=== PATIENT | male | born 1945 | race Caucasian/White ===

== ENCOUNTER 2020-04-27 07:38 | Outpatient (REF) | payer MEDICARE, SELFPAY ==
[2020-04-27 08:08] LABS: MANUAL DIFF FLAG NO
[2020-04-27 08:20] LABS: Basophils Percent Auto 0.5 % (0-2); Eosinophils Absolute Auto 0.5 X10*3/uL (0.0-0.4); Eosinophils Percent Auto 5.5 % (0-4); Hematocrit 46.1 % (42-52); Imm Gran Abs Auto 0.02 X10*3/uL (0.00-0.03); Imm Gran Pct Auto 0.2 % (0.0-0.4); Lymphocytes Absolute Auto 2.4 X10*3/uL (1.2-4.9); Lymphocytes Percent Auto 29.1 % (20-40); Mean Corpuscular HGB Conc 32.5 g/dl (31.0-36.0); Mean Corpuscular Hemoglobin 31.2 pg (27.0-33.0); Mean Corpuscular Volume 95.8 fL (80-98); Mean Platelet Volume 9.8 fL (9.4-12.4); Monocytes Absolute Auto 0.7 X10*3/uL (0.1-1.2); Monocytes Percent Auto 7.9 % (2-11); Neutrophils Absolute Auto 4.7 X10*3/uL (2.0-8.3); Neutrophils Percent Auto 56.8 % (45-73); Platelet Count 204 X10*3/uL (160-400); Red Blood Count 4.81 X10*6/uL (4.60-5.80); Red Cell Distribution Width 13.6 % (11.0-16.0); White Blood Count 8.3 X10*3/uL (4.8-10.8)
[2020-04-27 08:47] LABS: Glucose Urine UA NEG (NEG); Leukocyte Esterase Urine NEG (NEG); Nitrite Urine NEG (NEG); Specific Gravity - Urine 1.025 (1.005-1.025); Urine Blood TRACE (NEG); Urine Ketones NEG (NEG); Urine Protein NEG (NEG-TRACE)
[2020-04-27 08:50] LABS: Color Urine YELLOW
[2020-04-27 08:51] LABS: Appearance Urine CLEAR
[2020-04-27 08:52] LABS: Alanine Aminotransferase 25 U/L (0-40); Albumin Level 3.8 g/dL (3.5-5.0); Alkaline Phosphatase 92 U/L (39-117); Anion Gap 11 (12-20); Aspartate Amino Transferase 18 U/L (5-37); Bilirubin Total 0.5 mg/dL (0.0-1.0); Blood Urea Nitrogen 17 mg/dL (9-16); Calcium 8.9 mg/dL (8.4-10.2); Carbon Dioxide 27 mmol/L (22-29); Chloride 107 mmol/L (96-108); Cholesterol 152 mg/dL; Estimated Glomerular Filt Rate > 60; Glucose Fasting 92 mg/dL (60-99); HDL Cholesterol 40 mg/dL; LDL Cholesterol Calculated 101 mg/dl; Potassium 3.6 mmol/l (3.3-5.1); Sodium 141 mmol/L (135-145); Total Protein 6.3 g/dL (6.5-8.0); Triglycerides 58 mg/dL
[2020-04-27 08:59] LABS: WBC Urine 0 /HPF (0-4)
[2020-04-27 09:00] LABS: Mucus Urine 1+ /LPF
[2020-04-27 09:14] LABS: Prostate Specific Antigen 1.42 ng/mL (<0.05-4.0); TSH reflex Free T4 1.41 mIU/mL (0.32-4.0)
== END 2020-04-27 07:39 | disposition home or self-care (01) ==
LOC: HO.LAB 07:38
PROVIDERS: PCP Internal Medicine; Visit Provider Internal Medicine
DX: E78.5 Hyperlipidemia, unspecified (principal); R73.01 Impaired fasting glucose; R35.0 Frequency of micturition; M51.36 Other intervertebral disc degeneration, lumbar region; C43.31 Malignant melanoma of nose
CPT/HCPCS: 36415; 80053; 80061; 81001; 84153; 84443; 85025

== ENCOUNTER 2020-08-17 07:44 | Day surgery (SDC) | payer OTHER, SELFPAY ==
[2020-08-11 13:16] VITALS: BMI 29.9
--- NOTE | 2020-08-16 08:15 | P.CONAN_ITS ---
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 (Acute) Lumbar strain (Acute) Lumbar degenerative disc disease (Acute) Impaired fasting glucose (Acute) Benign essential hypertension (Acute) Pure hypercholesterolemia (Acute) Past Medical History Medical History Anxiety Benign essential hypertension Claudication of both lower extremities COVID-19 vaccine administered History of diverticulosis Impaired fasting glucose Lumbar degenerative disc disease Lumbar strain Malignant melanoma of nose Overweight (BMI 25.0-29.9) Pure hypercholesterolemia Skin cancer, 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 If so, by whom?: No Are you DNR?: No Advance Directives: Yes (unknown) Advance Directives Information Provided: No Advance Directives on File: No (unknown) Advance Directives Date on File: 08/17/20 Recently lost weight without trying: No Eating poorly because of decreased appetite: No Nutrition Risks: No Nutritional Risk Meds Allergies Allergy/AdvReac Type Severity Reaction Status Date / Time No Known Allergies Allergy Verified 06/07/20 13:47 Home Medications Medication Instructions Recorded Confirmed Last Taken Type aspirin 81 mg tablet,delayed 81 mg PO DAILY 02/06/20 08/11/20 08/10/20 History release atorvastatin 80 mg tablet 80 mg PO .1/2 TABLET DAILY tab 02/06/20 08/11/20 Unknown History bupropion HCl (smoking deter) 150 150 mg PO DAILY 02/06/20 08/11/20 Unknown History mg tablet,12 hr sustained-release(smoking deterrent) lisinopril 5 mg tablet 5 mg PO DAILY 02/06/20 08/11/20 Unknown History Exam Exam Date and Time: August 16, 2020 0815 Height,Weight and Vital Signs: Height 5 ft 9 in Weight 92.079 kg Assessment and Plan Assessment Anesthesia Assessment: Chart Reviewed
[2020-08-17 07:55] VITALS: BP 141/79; PULSE 82; RESP 18; TEMP 35.8; O2SAT 100
[2020-08-17] MEDS: Lactated Ringers 1,000 ML 100 ML IVCONT (08:19)
--- NOTE | 2020-08-17 08:53 | MHC.SHP ---
Pre-Procedural Eval Section A The patient is an INPATIENT: No Section B Chief Complaint: screening Details of Present Illness: screening Relevant Family History (Specify if Yes): No Relevant Social History: None Present Medications: see Short Stay Collaborative assessment Medical History: No relevant PMH History of Previous Operations: No relevant previous surgery Allergies: Allergies Allergy/AdvReac Type Severity Reaction Status Date / Time No Known Allergies Allergy Verified 06/07/20 13:47 Review of Systems Sugical H&P ROS: Negative: Constitution, Cardiovascular, Respiratory, Neurological, Psychiatric, Hem-Onc, Allergic/Immunologic, Gastrointestinal, Genitourinary, Musculoskeletal, Integumentary, Endocrine and Eyes/Ears/Nose/Throat Exam Surgical H&P Exam: Normal: HEENT, Normal: Heart, Normal: Lungs, Normal: Extremities, Normal: Abdomen, Normal: Skin and Normal: Neurological Plan Diagnosis/Plan: Unchanged I have reviewed the history and physical and performed a pertinent physical examination on my patient. No changes have occurred unless specified.
--- NOTE | 2020-08-17 08:59 | P.CONAN_ITS ---
[facility] [place] Active Problems Active Problems: All Active Problems (Updated 08/11/20 @ 13:17 by Mariam everett) Overweight (BMI 25.0-29.9) (Acute) Anxiety (Acute) Malignant melanoma of nose (Acute) Claudication of both lower extremities (Acute) Lumbar strain (Acute) Lumbar degenerative disc disease (Acute) Impaired fasting glucose (Acute) Benign essential hypertension (Acute) Pure hypercholesterolemia (Acute) Past Medical History Medical History Anxiety Benign essential hypertension Claudication of both lower extremities COVID-19 vaccine administered History of diverticulosis Impaired fasting glucose Lumbar degenerative disc disease Lumbar strain Malignant melanoma of nose Overweight (BMI 25.0-29.9) Pure hypercholesterolemia Skin cancer, 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 If so, by whom?: No Are you DNR?: No Advance Directives: Yes (unknown) Advance Directives Information Provided: No Advance Directives on File: No (unknown) Advance Directives Date on File: 08/17/20 Recently lost weight without trying: No Eating poorly because of decreased appetite: No Nutrition Risks: No Nutritional Risk Meds Allergies Allergy/AdvReac Type Severity Reaction Status Date / Time No Known Allergies Allergy Verified 06/07/20 13:47 Active Medications: Current Medications Generic Name Dose Route Start Last Admin Trade Name Freq PRN Reason Stop Dose Admin Albuterol Sulfate 2.5 mg 08/17/20 06:57 Albuterol Sulfate (0.083%) 2.5 Mg/3 Ml Vial.Neb INHALE ONCE PRN Shortness of Breath/Wheezing Lactated Ringer's 1,000 mls @ 100 mls/hr 08/17/20 07:00 08/17/20 08:19 Lr IVCONT 100 mls/hr .Q10H AMY Administration Sodium Biphosphate/Sodium Phosphate 133 ml 08/17/20 08:32 Sodium Phosphate,[place]-Dibasic 133 Ml Enema NE ONCE PRN GI Upset Sodium Biphosphate/Sodium Phosphate 133 ml 08/17/20 08:48 Sodium Phosphate,[place]-Dibasic 133 Ml Enema NE ONCE PRN GI Upset Home Medications Medication Instructions Recorded Confirmed Last Taken Type aspirin 81 mg tablet,delayed 81 mg PO DAILY 02/06/20 08/11/20 08/10/20 History release atorvastatin 80 mg tablet 80 mg PO .1/2 TABLET DAILY tab 02/06/20 08/11/20 Unknown History bupropion HCl (smoking deter) 150 150 mg PO DAILY 02/06/20 08/11/20 Unknown History mg tablet,12 hr sustained-release(smoking deterrent) lisinopril 5 mg tablet 5 mg PO DAILY 02/06/20 08/11/20 Unknown History Exam Exam Date and Time: August 17, 2020 0859 Height,Weight and Vital Signs: Height 5 ft 9 in Weight 92.079 kg Last Vital Signs Temp 96.4 F L 08/17/20 07:55 Pulse 82 08/17/20 07:55 Resp 18 08/17/20 07:55 BP 141/79 H 08/17/20 07:55 Pulse Ox 100 08/17/20 07:55 Airway Mallampati Class: III TM Dist: >3cm Neck ROM: Full Denture: Upper Heart: RRR Lungs: CtA
[2020-08-17] MEDS: Sodium Phosphate,Mono-Dibasic 133 ML ENEMA PR ×2 (09:01)
[2020-08-17 09:35] VITALS: BP 116/75; PULSE 77; RESP 16; TEMP 36.6; O2SAT 96
--- NOTE | 2020-08-17 09:43 | PM.OP ---
Brief Operative Note Date of Service: 08/17/20 Pre-op diagnosis: screening Post-op diagnosis: same (colon polyp) Procedure: colonoscopy Surgeon: Rian Metzger Was an [employer] Grade [employer] used for this Procedure?: No Estimated blood loss (mL): 2 Pathology: other (polyp x1) Condition: stable Disposition: PACU
[2020-08-17 09:50] VITALS: BP 128/83; PULSE 76; RESP 17; TEMP 36.6; O2SAT 98
--- NOTE | 2020-08-17 10:00 | OP_ITS ---
SURGEON: Rian Metzger MD INDICATIONS: Colon cancer screening. PREOPERATIVE DIAGNOSIS: POSTOPERATIVE DIAGNOSIS: PROCEDURE PERFORMED: Colonoscopy to cecum with biopsy. ESTIMATED BLOOD LOSS: COMPLICATIONS: ANESTHESIA: ASSISTANTS: SPECIMENS: MEDICATIONS: Monitored anesthesia care. DESCRIPTION OF PROCEDURE: History and physical performed. The risks and benefits of the procedure were explained to the patient. Informed consent was obtained. The patient was placed in left lateral decubitus position. A digital rectal exam was performed and was found to be normal. The Olympus pediatric video colonoscope was introduced into the rectum and advanced to the cecum without difficulty. The cecum was identified by transillumination, palpation, and identification of ileocecal valve. Abdominal wall pressure was used to assist in advancement of the scope due to looping in the sigmoid. He tolerated the procedure well and was taken to recovery area in stable condition. FINDINGS: The terminal ileum was not examined. The visualized colonic mucosa was normal. Examination was extremely limited due to the poor prep with portions of the transverse colon and descending colon being extremely limited in visualization. Small polyps could have been missed. There was a single polyp in the right colon that was removed with biopsy forceps measuring less than 5 mm. No other polyps were identified. There was moderate sigmoid diverticulosis. Retroflexed examination showed small internal hemorrhoids. IMPRESSION: Colon polyp. RECOMMENDATIONS: 1. Follow up the biopsy results. 2. Consider repeat colonoscopy with 2-day prep in 6 to 12 months. MD JOSÉ MIGUEL Oliva/TIMOTHY / [id number]
--- NOTE | 2020-08-17 11:38 | HO.POSTANES ---
Post Anesthesia Evaluation Post Anesthesia Evaluation Vital Signs: Vital Signs Temp Pulse Resp BP Pulse Ox 08/17/20 09:50 97.9 F 76 17 128/83 98 08/17/20 09:35 97.9 F 77 16 116/75 96 08/17/20 07:55 96.4 F L 82 18 141/79 H 100 Anesthesia: Monitored Mental Status: Awake Pain Control: Satisfactory Nausea/Vomiting: None Hydration: Adequate Anesthesia-Related Issues: No Anes. Related Issues
== END 2020-08-17 10:19 | disposition home or self-care (01) ==
PROVIDERS: PCP Internal Medicine; Visit Provider Internal Medicine Gastroenterology
PROC: 0DJD8ZZ Inspection of Lower Intestinal Tract, Via Natural or Artificial Opening Endoscopic (ICD-10-PCS; CPT 45378; principal; 2020-08-17 08:50)
DX: Z12.11 Encounter for screening for malignant neoplasm of colon (principal); D12.4 Benign neoplasm of descending colon; K57.30 Diverticulosis of large intestine without perforation or abscess without bleeding; K64.8 Other hemorrhoids; I10 Essential (primary) hypertension; Z85.820 Personal history of malignant melanoma of skin; Z85.828 Personal history of other malignant neoplasm of skin; F17.210 Nicotine dependence, cigarettes, uncomplicated; Z79.82 Long term (current) use of aspirin; Z79.899 Other long term (current) drug therapy
CPT/HCPCS: 45380; 88305

== ENCOUNTER 2020-08-20 22:10 | Inpatient (IN) | payer MEDICARE, SELFPAY ==
--- NOTE | ~2020-08-20 | CT_ITS ---
EXAMINATION: CT ABDOMEN AND PELVIS WITH CONTRAST CLINICAL INFORMATION: Abdominal pain COMPARISON: None TECHNIQUE: Multidetector volumetric images were obtained from the superior aspect of the liver through the pubic symphysis following administration 85 mL of Omnipaque 350 intravenous contrast. Sagittal and coronal reformatted images were obtained on the technologist's workstation. Oral contrast: No This CT examination was performed using dose optimization techniques as appropriate, variously including the following: *Automated exposure control *Adjustment of mA and/or kV according to patient size (this includes techniques or standardized protocols for targeted exams where dose is matched to indication/reason for exam; i.e. extremities or head) *Use of iterative reconstruction technique DLP: 622 mGy-cm FINDINGS: LUNG BASES: The visualized lung bases are unremarkable. LIVER, GALLBLADDER, AND BILIARY TREE: The liver is normal in size, shape, and attenuation. No focal hepatic lesion or biliary ductal dilatation is present. The gallbladder is unremarkable with no evidence of radiopaque gallstones, gallbladder wall thickening, or obvious pericholecystic inflammatory changes. PANCREAS: Unremarkable. SPLEEN: Unremarkable. ADRENAL GLANDS: Unremarkable. KIDNEYS AND URETERS: The kidneys are normal in size, shape, and attenuation. There are several small scattered hypodense renal lesions bilaterally which are favored to represent cysts. There is a 2 mm calculus in the upper right kidney. No hydronephrosis, hydroureter, or obstructing calculi seen. No perinephric stranding. BLADDER: Unremarkable. GASTROINTESTINAL TRACT: There are multiple fluid-filled small bowel loops throughout the abdomen. No discrete transition from dilated to collapsed small bowel is seen, and fluid remains present within nondilated distal small bowel loops. There is a short segment of focally thickened small bowel in the left abdomen as seen on axial image 61/95 and coronal image 41, with a small amount of adjacent fluid. In the coronal plane this thickened portion has abrupt margins, which raises concern for neoplasm. Moderate amount of stool is present throughout the colon. Colonic diverticulosis without convincing diverticulitis. There is a small amount of pelvic free fluid. The appendix is unremarkable. ABDOMINAL WALL: Small bilateral fat-containing inguinal hernias. LYMPH NODES: Normal. VASCULAR: There are scattered atherosclerotic calcifications. PELVIC VISCERA: Unremarkable. OSSEOUS STRUCTURES: Degenerative changes are noted in the spine. CT/CT abdomen pelvis w con IMPRESSION: 1. Focally thickened small bowel in the left lower quadrant with small amount of adjacent free fluid. Appearance is concerning for small bowel neoplasm, and further workup is recommended. 2. Multiple fluid-filled mid to distal small bowel loops. No focal transition from distended to collapsed small bowel is seen, though the possibility of a low-grade obstruction would be difficult to entirely exclude. This does not appear to be centered in the focally thickened small bowel described above.
[2020-08-20 22:55] VITALS: BP 134/78; PULSE 98; RESP 16; TEMP 36.7; O2SAT 98; BMI 28.7
[2020-08-20 23:13] LABS: MANUAL DIFF FLAG NO
[2020-08-20 23:15] LABS: Basophils Percent Auto 0.3 % (0-2); Eosinophils Absolute Auto 0.6 X10*3/uL (0.0-0.4); Eosinophils Percent Auto 4.9 % (0-4); Hematocrit 47.6 % (42-52); Hemoglobin 16.1 g/dl (14.0-18.0); Imm Gran Abs Auto 0.03 X10*3/uL (0.00-0.03); Imm Gran Pct Auto 0.2 % (0.0-0.4); Lymphocytes Absolute Auto 1.8 X10*3/uL (1.2-4.9); Lymphocytes Percent Auto 14.6 % (20-40); Mean Corpuscular HGB Conc 33.8 g/dl (31.0-36.0); Mean Corpuscular Hemoglobin 31.9 pg (27.0-33.0); Mean Corpuscular Volume 94.3 fL (80-98); Mean Platelet Volume 9.8 fL (9.4-12.4); Monocytes Absolute Auto 0.8 X10*3/uL (0.1-1.2); Monocytes Percent Auto 6.3 % (2-11); Neutrophils Absolute Auto 9.2 X10*3/uL (2.0-8.3); Neutrophils Percent Auto 73.7 % (45-73); Platelet Count 227 X10*3/uL (160-400); Red Blood Count 5.05 X10*6/uL (4.60-5.80); Red Cell Distribution Width 13.4 % (11.0-16.0); White Blood Count 12.5 X10*3/uL (4.8-10.8)
[2020-08-20 23:40] LABS: Alanine Aminotransferase 29 U/L (0-40); Albumin Level 4.2 g/dL (3.5-5.0); Alkaline Phosphatase 109 U/L (39-117); Anion Gap 13 (12-20); Aspartate Amino Transferase 23 U/L (5-37); Bilirubin Total 0.7 mg/dL (0.0-1.0); Blood Urea Nitrogen 19 mg/dL (9-16); Carbon Dioxide 28 mmol/L (22-29); Chloride 106 mmol/L (96-108); Creatinine Clr Calc Pharmacy 66.1; Estimated Glomerular Filt Rate > 60; Glucose Random 109 mg/dL (60-115); Potassium 4.1 mmol/L (3.3-5.1); Sodium 143 mmol/L (135-145)
[2020-08-21] VITALS (9 sets, daily range): BP systolic 102–135; BP diastolic 55–82; PULSE 78–86; RESP 14–20; TEMP 36.3–36.9; O2SAT 95–99
--- NOTE | 2020-08-21 02:45 | ED.ABDPAIN ---
HPI - Abdominal Pain General Chief Complaint: Abdominal Pain Stated Complaint: punctured bowel? Time Seen by Provider: 08/21/20 02:45 Source: patient Mode of arrival: ambulatory History of Present Illness HPI narrative: Abdominal pain since colonoscopy on Sunday and initially was able to pass gas but now denies being able to pass flatus and has not had a bowel movement since. Denies any abdominal surgeries and states that the pain is worse with eating and he does note that he had gallbladder stones on his lung scan a month ago. Otherwise, he denies any fevers, chills but does state nausea with the pain and denies any diarrhea or urinary symptoms. Related Data Home Medications Medication Instructions Recorded Confirmed aspirin 81 mg tablet,delayed 81 mg PO DAILY 02/06/20 08/11/20 release atorvastatin 80 mg tablet 80 mg PO .1/2 TABLET DAILY tab 02/06/20 08/11/20 bupropion HCl (smoking deter) 150 150 mg PO DAILY 02/06/20 08/11/20 mg tablet,12 hr sustained-release(smoking deterrent) lisinopril 5 mg tablet 5 mg PO DAILY 02/06/20 08/11/20 Allergies Allergy/AdvReac Type Severity Reaction Status Date / Time No Known Allergies Allergy Verified 08/20/20 22:55 Review of Systems Review of Systems Pertinent positives and negatives as stated in the HPI and 10 point review of systems is otherwise negative. Physical Exam Vital Signs: Vital Signs: Last Vital Signs Temp 98.1 F 08/20/20 22:55 Pulse 98 08/20/20 22:55 Resp 16 08/20/20 22:55 BP 134/78 08/20/20 22:55 Pulse Ox 98 08/20/20 22:55 Body Mass Index 28.7 VITAL SIGNS: Reviewed. GENERAL: Well developed, well nourished, in no acute distress. HEAD: Normocephalic/atraumatic, EYES: PERRLA, EOMI EARS: Ext canals without abnormality NOSE: Nares patent bilateral OROPHARYNX: no oral lesions noted, posterior pharynx clear NECK: Supple, no adenopathy LUNGS: Normal breath sounds. No adventitious sounds or accessory muscle use. SpO2<98> CARDIOVASCULAR: Regular rate and rhythm without noted murmurs ABDOMEN: Obese, Soft, tenderness to palpation over epigastrium primarily without evidence of rebound, non-distended with bowel sounds. NEUROLOGIC: Alert and oriented x 4. Course Course Course Narrative: 75-year-old male with history and clinical presentation concerning for possible perforation, bowel obstruction, diverticulitis. History is significant for colonoscopy. On review of all investigations evidence most consistent with bowel obstruction but also the possibility of a malignancy as identified by the CT scan findings. As there is a noted leukocytosis patient was treated with IV antibiotics and a lactic acid as well as blood cultures were drawn although patient does not meet sepsis criteria at this time. I discussed this case with Dr. Upton who recommends admission and placement of NGT as well as discussing the case with Dr. Barbosa who has accepted the patient under her service and agrees with placement of NG tube. MDM - Abdominal Pain Lab Data Result diagrams: 08/20/20 23:06 08/20/20 23:06 Labs: Lab Results 08/20/20 08/20/20 08/20/20 Range/Units 23:06 23:06 23:06 WBC 12.5 H (4.8-10.8) X10*3/uL RBC 5.05 (4.60-5.80) X10*6/uL Hgb 16.1 (14.0-18.0) g/dl Hct 47.6 (42-52) % MCV 94.3 (80-98) fL MCH 31.9 (27.0-33.0) pg MCHC 33.8 (31.0-36.0) g/dl RDW 13.4 (11.0-16.0) % Plt Count 227 (160-400) X10*3/uL MPV 9.8 (9.4-12.4) fL Immature Gran % (Auto) 0.2 (0.0-0.4) % Neut % (Auto) 73.7 H (45-73) % Lymph % (Auto) 14.6 L (20-40) % [place] % (Auto) 6.3 (2-11) % Eos % (Auto) 4.9 H (0-4) % Baso % (Auto) 0.3 (0-2) % Lymph # (Auto) 1.8 (1.2-4.9) X10*3/uL [place] # (Auto) 0.8 (0.1-1.2) X10*3/uL Eos # (Auto) 0.6 H (0.0-0.4) X10*3/uL Baso # (Auto) 0.0 (0.0-0.2) X10*3/uL Abs Immat Gran (auto) 0.03 (0.00-0.03) X10*3/uL Absolute Neuts (auto) 9.2 H (2.0-8.3) X10*3/uL Absolute Nucleated RBC 0.000 (0.0-0.012) X10*3/uL Nucleated RBC % (auto) 0.0 (0.0-0.2) /100WBC Hold Blue Top SEE NOTE Sodium 143 (135-145) mmol/L Potassium 4.1 (3.3-5.1) mmol/L Chloride 106 (96-108) mmol/L Carbon Dioxide 28 (22-29) mmol/L Anion Gap 13 (12-20) BUN 19 H (9-16) mg/dL Creatinine 1.11 (0.5-1.4) mg/dL Estim Creat Clear Calc 66.1 Estimated GFR > 60 Random Glucose 109 (60-115) mg/dL Calcium 10.0 D (8.4-10.2) mg/dL Total Bilirubin 0.7 (0.0-1.0) mg/dL AST 23 (5-37) U/L ALT 29 (0-40) U/L Alkaline Phosphatase 109 (39-117) U/L Total Protein 7.0 (6.5-8.0) g/dL Albumin 4.2 (3.5-5.0) g/dL Urine Color Urine Appearance Urine pH (5.0-8.0) Ur Specific [place] (1.005-1.025) Urine Protein (NEG-TRACE) MG/DL Urine Glucose (UA) (NEG) MG/DL Urine Ketones (NEG) MG/DL Urine Blood (NEG) Urine Nitrite (NEG) Ur Leukocyte Esterase (NEG) Urine RBC (0) /HPF Urine WBC (0-4) /HPF Ur Squamous Epith Cells /LPF Uric Acid Crystals /LPF Urine Bacteria /LPF Hyaline Casts /LPF Granular Casts /LPF Urine Mucus /LPF 08/21/20 Range/Units 02:31 WBC (4.8-10.8) X10*3/uL RBC (4.60-5.80) X10*6/uL Hgb (14.0-18.0) g/dl Hct (42-52) % MCV (80-98) fL MCH (27.0-33.0) pg MCHC (31.0-36.0) g/dl RDW (11.0-16.0) % Plt Count (160-400) X10*3/uL MPV (9.4-12.4) fL Immature Gran % (Auto) (0.0-0.4) % Neut % (Auto) (45-73) % Lymph % (Auto) (20-40) % [place] % (Auto) (2-11) % Eos % (Auto) (0-4) % Baso % (Auto) (0-2) % Lymph # (Auto) (1.2-4.9) X10*3/uL [place] # (Auto) (0.1-1.2) X10*3/uL Eos # (Auto) (0.0-0.4) X10*3/uL Baso # (Auto) (0.0-0.2) X10*3/uL Abs Immat Gran (auto) (0.00-0.03) X10*3/uL Absolute Neuts (auto) (2.0-8.3) X10*3/uL Absolute Nucleated RBC (0.0-0.012) X10*3/uL Nucleated RBC % (auto) (0.0-0.2) /100WBC Hold Blue Top Sodium (135-145) mmol/L Potassium (3.3-5.1) mmol/L Chloride (96-108) mmol/L Carbon Dioxide (22-29) mmol/L Anion Gap (12-20) BUN (9-16) mg/dL Creatinine (0.5-1.4) mg/dL Estim Creat Clear Calc Estimated GFR Random Glucose (60-115) mg/dL Calcium (8.4-10.2) mg/dL Total Bilirubin (0.0-1.0) mg/dL AST (5-37) U/L ALT (0-40) U/L Alkaline Phosphatase (39-117) U/L Total Protein (6.5-8.0) g/dL Albumin (3.5-5.0) g/dL Urine Color DARK YELLOW Urine Appearance CLEAR Urine pH 6.5 (5.0-8.0) Ur Specific [place] 1.025 (1.005-1.025) Urine Protein 1+ H (NEG-TRACE) MG/DL Urine Glucose (UA) NEG (NEG) MG/DL Urine Ketones 15 (NEG) MG/DL Urine Blood NEG (NEG) Urine Nitrite NEG (NEG) Ur Leukocyte Esterase NEG (NEG) Urine RBC 0-2 (0) /HPF Urine WBC 0-2 (0-4) /HPF Ur Squamous Epith Cells NONE /LPF Uric Acid Crystals 1+ /LPF Urine Bacteria NONE /LPF Hyaline Casts 0-2 /LPF Granular Casts 0-2 /LPF Urine Mucus 2+ /LPF Discharge Plan Discharge Clinical Impression: SBO (small bowel obstruction) Patient Disposition: Admitted As Inpatient [facility]LY [facility] Past Medical History Source: nursing notes reviewed Medical History Anxiety Benign essential hypertension Claudication of both lower extremities COVID-19 vaccine administered History of diverticulosis Impaired fasting glucose Lumbar degenerative disc disease Lumbar strain Malignant melanoma of nose Overweight (BMI 25.0-29.9) Pure hypercholesterolemia Skin cancer, 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 Surgical History H/O colonoscopy History of eye surgery History of melanoma excision Family History Family History Father Cancer Mother Cancer Social History Social History Alcohol intake: never Smoking Status: Current every day smoker Tobacco Type: Cigarette Cigarettes Per Day: 4 Use of substances other than those prescribed or required for medical reasons: No Advance Directives: Yes Advance Directives on File: Yes Advance Directives Date on File: 08/17/20
[2020-08-21 02:56] LABS: Appearance Urine CLEAR; Color Urine DARK YELLOW; Glucose Urine UA NEG (NEG); Leukocyte Esterase Urine NEG (NEG); Nitrite Urine NEG (NEG); PH 6.5 (5.0-8.0); Specific Gravity - Urine 1.025 (1.005-1.025); Urine Blood NEG (NEG); Urine Ketones 15 MG/DL (NEG); Urine Protein 1+ MG/DL (NEG-TRACE)
[2020-08-21] MEDS: iohexoL 350 MG/ML 100 ML INFUS..BTL 85 ML IV (03:25)
[2020-08-21 03:29] LABS: RBC Urine 0-2 /HPF (0); WBC Urine 0-2 /HPF (0-4)
[2020-08-21 03:30] LABS: Granular Casts Urine 0-2 /LPF; Hyaline Casts Urine 0-2 /LPF; Mucus Urine 2+ /LPF; Uric Acid Crystals Urine 1+ /LPF
--- NOTE | 2020-08-21 04:26 | PC.NURSE ---
MD at bedside explaining results and plan for admission.
--- NOTE | 2020-08-21 05:21 | PC.NURSE ---
photovoltaic fabrication technician at bedside having a difficult time obtaining BCX.
[2020-08-21] MEDS: Dextrose 5 % and Lactated Ring 1,000 ML 100 ML IVCONT ×2 (05:34→15:21)
[2020-08-21 05:41] LABS: COVID-19 Test Negative (Negative); IDNOW Serial# 9DD0AD1C
--- NOTE | 2020-08-21 05:49 | PC.NURSE ---
IVF infusing per MAR. Pt denies pain/nausea, refusing NGT at this time. Familia aware. VSS. Pt resting in bed, lights dim for comfort. Call cohen within reach, continue to monitor.
[2020-08-21 05:55] LABS: Lactic Acid 1.2 mmol/L (0.5-2.0)
--- NOTE | 2020-08-21 08:44 | P.HPGS_ITS ---
History of Present Illness History of Present Illness Date of Service: 08/21/20 Chief complaint: Abdominal Pain Narrative: Robert Mcintyre is a 75 year old male who has a 4 day history of abdominal distension and pain exacerbated by eating. The problem began after he had a colonoscopy done on 08/17/2020. He completed the full prep on 08/16/2020, but reports that he did not pass a lot of stool as a result of the prep. Colonoscopy was completed by Dr. Metzger. The prep was poor and repeat colonoscopy in 6-12 months was recommended. The patient reports that when he returned home after the colonoscopy, he passed a lot of loose stool. He has not had a bowel movement since that time. He was passing flatus initially, but could not recall passing flatus yesterday. He reports that he began passing flatus again early this morning after coming into the emergency department. He says that he feels less distended and that he is not having pain at this time. Workup in the emergency room included a CT scan of the abdomen and pelvis that demonstrated mildly dilated small bowel with an area of focal small bowel thickening raising concern for possible small-bowel neoplasm. He does not report vomiting, fever or chills though he has experienced some mild nausea. He has not had similar problems in the past. Review of Systems Constitutional: Constitutional: Reports no additional constitutional complaints and Denies headache(s) ENT: Denies headache(s) Cardiovascular: Cardiovascular: Denies chest pain, Denies irregular heart rhythm, Denies palpitations and Denies dyspnea on exertion Respiratory: Respiratory: Denies cough, Denies dyspnea on exertion and Denies wheezing Gastrointestinal: Gastrointestinal: Reports abdominal pain, Denies hematochezia, Reports change in bowel habits and Reports nausea (But not currently) Genitourinary: Genitourinary: Denies dysuria, Denies nocturia and Denies urinary frequency Musculoskeletal: Musculoskeletal: Reports arthralgias (Right knee and left shoulder, history of fracture) Integumentary/Breasts: Skin/Breast: Denies pruritus and Denies rash Neurologic: Denies headache(s), Denies memory loss and Denies convulsions Psychiatric: Psychiatric: Denies memory loss Endocrine: Endocrine: Denies palpitations Hematologic/Lymphatic: Hematologic/Lymphatic: Reports no additional hematologic/lymphatic complaints and Denies easy bleeding Allergic/Immunologic: Allergic/Immunologic: Denies wheezing PMFSH Past Medical History Medical History Anxiety Benign essential hypertension Claudication of both lower extremities COVID-19 vaccine administered History of diverticulosis Impaired fasting glucose Lumbar degenerative disc disease Lumbar strain Malignant melanoma of nose Overweight (BMI 25.0-29.9) Pure hypercholesterolemia Skin cancer, 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 Family History Family History Father Cancer Mother Cancer Surgical History Surgical History H/O colonoscopy History of eye surgery History of melanoma excision Social History Social History Alcohol intake: never Smoking Status: Current every day smoker Tobacco Type: Cigarette Cigarettes Per Day: 4 Use of substances other than those prescribed or required for medical reasons: No Advance Directives: Yes Advance Directives on File: Yes Advance Directives Date on File: 08/17/20 Meds Allergies Allergy/AdvReac Type Severity Reaction Status Date / Time No Known Allergies Allergy Verified 08/20/20 22:55 Active Medications: Current Medications Generic Name Dose Route Start Last Admin Trade Name Freq PRN Reason Stop Dose Admin Acetaminophen 650 mg 08/21/20 05:17 Acetaminophen 325 Mg Tablet PO Q6H PRN Fever Atorvastatin Calcium 40 mg 08/21/20 21:00 Atorvastatin Calcium 40 Mg Tablet PO BEDTIME AMY Dextrose/Lactated Ringer's 1,000 mls @ 100 mls/hr 08/21/20 05:17 08/21/20 05:34 D5lr IVCONT 100 mls/hr .Q10H AMY Administration Lisinopril 5 mg 08/21/20 09:00 Lisinopril 5 Mg Tablet PO DAILY [facility] Protocol Morphine Sulfate 2 mg 08/21/20 05:28 Morphine Sulfate 2 Mg/Ml Cartridge IVPUSH Q3H PRN Pain, severe Non-Formulary Medication 150 mg 08/21/20 09:00 Bupropion Hcl (Smoking Deter) PO DAILY AMY Ondansetron HCl 4 mg 08/21/20 05:17 Ondansetron Hcl 4 Mg/2 Ml Vial IVPUSH Q8H PRN Nausea Home Medications Medication Instructions Recorded Confirmed Last Taken Type aspirin 81 mg tablet,delayed 81 mg PO DAILY 02/06/20 08/21/20 08/10/20 History release atorvastatin 80 mg tablet 80 mg PO .1/2 TABLET DAILY tab 02/06/20 08/21/20 Unknown History bupropion HCl (smoking deter) 150 150 mg PO DAILY 02/06/20 08/21/20 Unknown History mg tablet,12 hr sustained-release(smoking deterrent) lisinopril 5 mg tablet 5 mg PO DAILY 02/06/20 08/21/20 Unknown History Physical Exam Vital Signs: Vital Signs: Last Vital Signs Temp 98.2 F 08/21/20 07:53 Pulse 83 08/21/20 07:53 Resp 16 08/21/20 07:53 BP 122/68 08/21/20 07:53 Pulse Ox 96 08/21/20 07:53 Body Mass Index 28.7 Const: General: cooperative, healthy appearing and no acute distress HENMT: Head: Yes normal to inspection and Yes atraumatic Neck: Neck: Yes normal visual inspection Resp: Effort & Inspection: normal respiratory effort Auscultation: clear to auscultation bilaterally Cardio: Rate: regular rate Rhythm: regular rhythm GI: Other: Soft, nondistended, normal bowel sounds, mild diffuse tenderness, no palpable masses Rectal Exam - Male: Yes deferred Skin: Other: Scattered lesions consistent with seborrheic keratoses, normal color, warm and dry Psych: Affect: normal affect Attitude: cooperative Thought process: Normal thought process present Results Results Labs: Short CBC 08/20/20 Range/Units 23:06 WBC 12.5 H (4.8-10.8) X10*3/uL Hgb 16.1 (14.0-18.0) g/dl Hct 47.6 (42-52) % Plt Count 227 (160-400) X10*3/uL BMP 08/20/20 23:06 Sodium 143 Potassium 4.1 Chloride 106 Carbon Dioxide 28 BUN 19 H Creatinine 1.11 Calcium 10.0 D Liver Function 08/20/20 Range/Units 23:06 Total Bilirubin 0.7 (0.0-1.0) mg/dL AST 23 (5-37) U/L ALT 29 (0-40) U/L Alkaline Phosphatase 109 (39-117) U/L Albumin 4.2 (3.5-5.0) g/dL Urine 05/22/21 Range/Units 02:31 Urine Color DARK YELLOW Urine Appearance CLEAR Urine pH 6.5 (5.0-8.0) Ur Specific [place] 1.025 (1.005-1.025) Urine Protein 1+ H (NEG-TRACE) MG/DL Urine Glucose (UA) NEG (NEG) MG/DL CT scan of the abdomen and pelvis impression: IMPRESSION: 1. Focally thickened small bowel in the left lower quadrant with small amount of adjacent free fluid. Appearance is concerning for small bowel neoplasm, and further workup is recommended. 2. Multiple fluid-filled mid to distal small bowel loops. No focal transition from distended to collapsed small bowel is seen, though the possibility of a low-grade obstruction would be difficult to entirely exclude. This does not appear to be centered in the focally thickened small bowel described above. Assessment and Plan (1) Abdominal pain: Status: Acute (2) Abnormal abdominal CT scan: Status: Acute 75-year-old male with symptoms of abdominal pain and bloating following colonoscopy, and abnormal findings on small-bowel including an area of thickened small bowel raising concern for malignancy. History is more consistent with ileus, possibly related to the colonoscopy prep and response to sedation. He will be admitted for IV hydration and observation. Diet will be advanced as tolerated. Further workup will be needed with regard to the thickened loop of small bowel, likely repeat CT scan with oral contrast. Timing of this will depend upon his clinical course. He has a history of hypercholesterolemia, hypertension and anxiety. Usual home medications will be continued. He had a polypectomy performed at the time of colonoscopy on 08/17/20. Pathology reveals tubular adenoma. He is aware that short interval colonoscopy is recommended. VT prophylaxis will be with compression boots. Procedures Date of Service Date of Service: 08/21/20
[2020-08-21] MEDS: lisinopriL 5 MG TABLET PO (09:50)
[2020-08-21] MEDS: Atorvastatin Calcium 40 MG TABLET PO (20:41)
[2020-08-22] MEDS: Acetaminophen 325 MG TABLET 650 MG PO (03:41)
[2020-08-22 04:00] VITALS: BP 114/65; PULSE 81; RESP 16; TEMP 36.3; O2SAT 95
[2020-08-22] MEDS: Dextrose 5 % and Lactated Ring 1,000 ML 100 ML IVCONT (04:07)
[2020-08-22 07:08] VITALS: BP 114/63; PULSE 80; RESP 20; TEMP 36.6; O2SAT 97
[2020-08-22 08:21] LABS: Hematocrit 41.8 % (42-52); Hemoglobin 13.6 g/dl (14.0-18.0); Mean Corpuscular HGB Conc 32.5 g/dl (31.0-36.0); Mean Corpuscular Hemoglobin 31.3 pg (27.0-33.0); Mean Corpuscular Volume 96.1 fL (80-98); Mean Platelet Volume 10.1 fL (9.4-12.4); Platelet Count 198 X10*3/uL (160-400); Red Blood Count 4.35 X10*6/uL (4.60-5.80); Red Cell Distribution Width 13.4 % (11.0-16.0); White Blood Count 7.2 X10*3/uL (4.8-10.8)
[2020-08-22 08:44] LABS: Anion Gap 10 (12-20); Blood Urea Nitrogen 10 mg/dL (9-16); Carbon Dioxide 26 mmol/L (22-29); Chloride 109 mmol/L (96-108); Creatinine Clr Calc Pharmacy 87.3; Estimated Glomerular Filt Rate > 60; Glucose Fasting 111 mg/dL (60-99); Potassium 3.9 mmol/L (3.3-5.1); Sodium 141 mmol/L (135-145)
[2020-08-22 08:48] VITALS: BP 114/63; PULSE 80
[2020-08-22] MEDS: lisinopriL 5 MG TABLET PO (08:48)
[2020-08-22] MEDS: buPROPion HCl XL 150 MG TAB.ER.24H PO (08:48)
[2020-08-22 08:51] LABS: Calcium 8.5 mg/dL (8.4-10.2)
[2020-08-22] MEDS: Docusate Sodium 100 MG CAPSULE PO (10:24)
[2020-08-22 11:00] VITALS: BP 125/80; PULSE 78; RESP 18; TEMP 36.6; O2SAT 99
--- NOTE | 2020-08-22 11:55 | PM.PNGS ---
Subjective Subjective Date of Service: 08/22/20 Interval history: He reports that he feels about the same as he did when I saw him yesterday. No longer bloated. Passing some flatus. No bowel movement. Tolerating clear Physical Exam Vital Signs: Vital Signs: Last Vital Signs Temp 98 F 08/22/20 11:00 Pulse 78 08/22/20 11:00 Resp 18 08/22/20 11:00 BP 125/80 08/22/20 11:00 Pulse Ox 99 08/22/20 11:00 Body Mass Index 28.7 Const: General: cooperative and no acute distress Resp: Effort & Inspection: normal respiratory effort Auscultation: clear to auscultation bilaterally Cardio: Rate: regular rate Rhythm: regular rhythm GI: Other: Soft, very mild diffuse tenderness, bowel sounds active, no palpable masses Skin: Other: Normal color, warm and dry. Progress Note: A&P Assessment and plan (1) Abnormal abdominal CT scan: Status: Acute (2) Abdominal pain: Status: Acute Assessment and Plan: His abdominal examination is benign and stable. Etiology was complaints is unclear, but I suspect temporary GI dysmotility following colonoscopy prep and procedure as the likely etiology. Will advance diet and treat with enema. He will require further workup for the small-bowel abnormality noted on CT scan, focal thickening raising concern for possible tumor. If he is able to tolerate a solid diet and has return of normal bowel function, will plan discharge with further workup on an outpatient basis. If not, we will request input from Dr. Metzger tomorrow. Fall Risk Details Current Medications: Current Medications Generic Name Dose Route Start Last Admin Trade Name Franko PRN Reason Stop Dose Admin Acetaminophen 650 mg 08/21/20 05:17 08/22/20 03:41 Acetaminophen 325 Mg Tablet PO 650 mg Q6H PRN Administration Fever Atorvastatin Calcium 40 mg 08/21/20 21:00 08/21/20 20:41 Atorvastatin Calcium 40 Mg Tablet PO 40 mg BEDTIME AMY Administration Bupropion HCl 150 mg 08/22/20 09:00 08/22/20 08:48 Bupropion Hcl Xl 150 Mg Tab.Er.24h PO 150 mg DAILY AMY Administration Docusate Sodium 100 mg 08/22/20 10:00 08/22/20 10:24 Docusate Sodium 100 Mg Capsule PO 100 mg BID AMY Administration Dextrose/Lactated Ringer's 1,000 mls @ 100 mls/hr 08/21/20 05:17 08/22/20 10:27 D5lr IVCONT Not Given .Q10H AMY Lisinopril 5 mg 08/21/20 09:00 08/22/20 08:48 Lisinopril 5 Mg Tablet PO 5 mg DAILY AMY Administration Protocol Morphine Sulfate 2 mg 08/21/20 05:28 Morphine Sulfate 2 Mg/Ml Cartridge IVPUSH Q3H PRN Pain, severe Ondansetron HCl 4 mg 08/21/20 05:17 Ondansetron Hcl 4 Mg/2 Ml Vial IVPUSH Q8H PRN Nausea Sodium Biphosphate/Sodium Phosphate 133 ml 08/22/20 10:00 Sodium Phosphate,[place]-Dibasic 133 Ml Enema CO ONCE AMY Time Spent With Patient Time: Total time spent is greater than 50% in coordination of care (as documented) at patient's floor/unit and/or counseling patient: Time with patient: less than 15 minutes Procedures Date of Service Date of Service: 08/22/20
[2020-08-22] MEDS: Sodium Phosphate,Mono-Dibasic 133 ML ENEMA PR (14:42)
[2020-08-22 15:36] VITALS: BP 138/79; PULSE 86; RESP 15; TEMP 36.8; O2SAT 100
--- NOTE | 2020-08-22 16:44 | MHC.CM.PN ---
CM MET WITH PT WHO REPORTS HE LIVES ALONE AND IS INDEPENDENT WITH ALL CARE AND MOBILITY. PT DENIES USING ANY HOME SERVICES OR DME. PT REPORTS HE IS A AND [facility] SO THAT HE CAN GET HIS MEDS [facility]. PT REPORTS HE BELIEVES HE HAS A HCP ON FILE AT THE [facility] NAMING HIS FRIEND, ROBERTO RIVERA, THE AGENT. PTS MEDICARE AND [facility] RIGHTS WERE DELIVERED PT WILL BE DISCHARGED HOME TODAY WITH NO SERVICES PTS FRIEND IS PICKING HIM UP .
--- NOTE | 2020-08-22 18:51 | PM.DS ---
DS: Providers Provider Date of Service: 08/22/20 Date of admission: 08/21/20 05:16 Primary care physician: Zachery Rios MD DS: Diagnosis Discharge Diagnosis (1) Abnormal abdominal CT scan: Status: Acute Problem details: Focal thickening of small bowel concerning for tumor (2) Abdominal pain: Status: Acute Problem details: Distention, obstipation post colonoscopy DS: Medications Discharge Medications Home Medications: Home Medications Medication Instructions Recorded Confirmed aspirin 81 mg tablet,delayed 81 mg PO DAILY 02/06/20 08/21/20 release atorvastatin 80 mg tablet 80 mg PO .1/2 TABLET DAILY tab 02/06/20 08/21/20 bupropion HCl (smoking deter) 150 150 mg PO DAILY 02/06/20 08/21/20 mg tablet,12 hr sustained-release(smoking deterrent) lisinopril 5 mg tablet 5 mg PO DAILY 02/06/20 08/21/20 Previous Rx's Medication Instructions Recorded docusate sodium 100 mg PO BID #60 cap 08/22/20 DS: Summary Hospital Course Hospital Course: This is a 75-year-old male who presented to the emergency department 2 days after undergoing colonoscopy. He completed the full prep, but had a poor result. He reports that after discharge home, he passed multiple loose stools. He had not had a bowel movement since then and reported bloating, diminished appetite, and a feeling of constipation. CT scan of the abdomen and pelvis was obtained and demonstrated a focally thickened loop of small bowel in the left lower quadrant and also multiple dilated fluid-filled loops of small bowel with no transition point. Findings were not diagnostic of bowel obstruction though this was in the differential. The process did not appear to involve the area of the focally thickened loop of small bowel. He experienced significant symptomatic improvement while in the emergency department. He was able to begin a clear liquid diet, which he tolerated without difficulty. He was passing flatus. He did not have a bowel movement spontaneously. On the 2nd hospital day, he was advanced to a solid diet and was treated with 1 enema. Following this, he passed a large formed stool and had no further abdominal discomfort. He was discharged home with plans to follow-up with his manager investment, Dr. Metzger, for discussion regarding further workup of the small bowel thickening noted on CT scan. Time Spent with Patient Time attestation: Total time spent providing and/or coordinating discharge services: Discharge coordination time: Less than 30 minutes Quality: Stroke Does the patient have a stroke diagnosis?: No Physical Exam Vital Signs: Vital Signs: Last Vital Signs Temp 98.3 F 08/22/20 15:36 Pulse 86 08/22/20 15:36 Resp 15 08/22/20 15:36 BP 138/79 08/22/20 15:36 Pulse Ox 100 08/22/20 15:36 Body Mass Index 28.7 Const: Other: Alert, no apparent distress Resp: Effort & Inspection: normal respiratory effort Auscultation: clear to auscultation bilaterally Cardio: Rate: regular rate Rhythm: regular rhythm GI: Other: Soft, mild diffuse tenderness, nondistended. No palpable masses. Psych: Mental Status: mental status grossly normal DS: Data Data Completed and Pending Labs on day of discharge: Laboratory Results - last 24 hr 08/22/20 08/22/20 07:23 07:23 WBC 7.2 RBC 4.35 L Hgb 13.6 L Hct 41.8 L MCV 96.1 MCH 31.3 MCHC 32.5 RDW 13.4 Plt Count 198 MPV 10.1 Absolute Nucleated RBC 0.000 Nucleated RBC % (auto) 0.0 Sodium 141 Potassium 3.9 Chloride 109 H Carbon Dioxide 26 Anion Gap 10 L BUN 10 Creatinine 0.84 Estim Creat Clear Calc 87.3 Estimated GFR > 60 Fasting Glucose 111 H Calcium 8.5 D Preliminary micro results at discharge 08/21/20 05:20 Blood Culture - Preliminary Blood - Venous No growth after 24 hours. 08/21/20 05:20 Blood Culture - Preliminary Blood - Venous No growth after 24 hours. Discharge Plan Discharge Patient Disposition: Home, Self-Care Discharge Diagnosis: Abdominal pain Referrals: Zachery Rios MD [Primary Care Provider] - 1 Week Rian Metzger [Physician] - 1 Week (Workup needed for possible small bowel lesion) Discharge Medications: New docusate sodium 100 mg Capsule 100 mg PO BID Qty: 60 RF: 2 Continued lisinopril 5 mg tablet 5 mg PO DAILY RF: 0 aspirin 81 mg tablet,delayed release (DR/EC) 81 mg PO DAILY RF: 0 atorvastatin 80 mg tablet 80 mg PO .1/2 TABLET DAILY RF: 0 bupropion HCl (smoking deter) 150 mg tablet extended release 12 hr 150 mg PO DAILY RF: 0 Discharge Orders: Discharge Order (Routine); Ordered 08/22/20 Ordered By: Mia Barbosa Diet: advance to usual diet Activity on Discharge: As tolerated Stand Alone Forms: Patient Portal Discharge page Care Plan Goals: Evaluate for possible small bowel lesion and treat as needed, follow-up colonoscopy with Dr. Metzger Health Concerns: Abnormal CT scan raising concern for small bowel lesion Plan of Treatment: Gradually resume usual activities, follow-up with Dr. Metzger Assessment: Improved Discharge Date/Time: 08/22/20 17:08
== END 2020-08-22 17:08 | disposition home or self-care (01) | DRG 392 ==
LOC: HO.ED 08-21 05:21 → HO.EDOVER 08-21 05:42 → HO.S3 08-21 16:28
PROVIDERS: Admitting Provider Surgery; Emergency Provider Student in an Organized Health Care Education/Training Program; PCP Internal Medicine; Visit Provider Surgery
DX: K59.89 Other specified functional intestinal disorders (principal); F41.9 Anxiety disorder, unspecified; R93.5 Abnormal findings on diagnostic imaging of other abdominal regions, including retroperitoneum; D12.6 Benign neoplasm of colon, unspecified; E78.00 Pure hypercholesterolemia, unspecified; I10 Essential (primary) hypertension; Z20.822 Contact with and (suspected) exposure to COVID-19; F17.210 Nicotine dependence, cigarettes, uncomplicated; Z71.6 Tobacco abuse counseling; Z79.82 Long term (current) use of aspirin; Z79.899 Other long term (current) drug therapy
CPT/HCPCS: 36415; 74177; 80048; 80053; 81001; 83605; 85025; 85027; 87040; 87635; 96365; 99284; 99285; Q9967

== ENCOUNTER → 2020-08-27 15:02 | Outpatient (BNVA) | payer MEDICARE, SELFPAY | PROVIDERS: PCP Internal Medicine; Referring Provider Internal Medicine; Visit Provider Surgery | DX: Z01.818 Encounter for other preprocedural examination (principal); D49.0 Neoplasm of unspecified behavior of digestive system; Z79.899 Other long term (current) drug therapy | CPT/HCPCS: 99202 ==

== ENCOUNTER 2020-08-31 18:30 | Emergency (ER) | payer MEDICARE, SELFPAY ==
--- NOTE | ~2020-08-31 | XR_ITS ---
EXAMINATION: XR ABDOMEN KUB CLINICAL INDICATION: Possible obstruction. Patient refused CT scan COMPARISON: 08/21/2020 CT scan TECHNIQUE: AP view of the abdomen. FINDINGS: Large volume of stool seen throughout the colon to the rectum. Significant constipation would be favored over distal obstruction. I do not appreciate significant small bowel dilatation or small bowel obstruction. XR/XR KUB IMPRESSION: Large volume of stool throughout the colon more suggestive of constipation. This appears more prominent when compared to the business analytics specialist film from the 08/21/2020 CT scan.
[2020-08-31 19:42] VITALS: BP 141/79; PULSE 91; RESP 18; TEMP 37.1; O2SAT 99; BMI 28.7
--- NOTE | 2020-08-31 20:57 | ED.ABDPAIN ---
HPI - Abdominal Pain General Chief Complaint: Abdominal Pain Stated Complaint: abd pain Time Seen by Provider: 08/31/20 20:47 Source: patient Mode of arrival: ambulatory Limitations: no limitations History of Present Illness HPI narrative: pt comes to emergency room complaining of abdominal pain. Patient states it started approximately 6 hours ago. Of note, patient was admitted on August 21 for abdominal pain, there was a concern for obstruction versus a neoplastic lesion in the jejunum. Patient was seen by Dr. Faulkner on 08/27/2020, patient will be scheduled for surgery. Patient states that at this moment, patient feels much better than when he initially came in. Patient waited couple of hours in the waiting room, by the time he was brought in to the main ED, states that his pain nearly resolved. Patient denies vomiting or diarrhea, patient states that he has been having daily bowel movements and able to pass gas. At this time, the patient states that the discomfort in the abdomen is 1/10. MD elicited complaint: abdominal pain Related Data Home Medications Medication Instructions Recorded Confirmed aspirin 81 mg tablet,delayed 81 mg PO DAILY 02/06/20 08/27/20 release atorvastatin 80 mg tablet 80 mg PO .1/2 TABLET DAILY tab 02/06/20 08/27/20 bupropion HCl (smoking deter) 150 150 mg PO DAILY 02/06/20 08/27/20 mg tablet,12 hr sustained-release(smoking deterrent) lisinopril 5 mg tablet 5 mg PO DAILY 02/06/20 08/27/20 Previous Rx's Medication Instructions Recorded docusate sodium 100 mg PO BID #60 cap 08/22/20 polyethylene glycol 3350 [Miralax] 17 g PO DAILY #119 g 08/31/20 Allergies Allergy/AdvReac Type Severity Reaction Status Date / Time No Known Allergies Allergy Verified 08/27/20 15:08 Review of Systems Review of Systems Constitutional : No Weight loss, No Fever, No Chills, No Night Sweats, No Fatigue, No Malaise ENT/Mouth : No Hearing loss, No Ear Pain, No Nasal Congestion, No Sinus Pain, No Hoarseness, No sore throat, No Rhinorrhea, No Swallowing Difficulty Eyes: No Eye Pain, No Swelling, No Redness, No Foreign Body, No Discharge, No Vision Changes Cardiovascular : No Chest Pain, No SOB, No Dyspnea on Exertion, No Orthopnea, No Edema, No Palpitations Respiratory : No Cough, No Sputum, No Wheezing, No Smoke Exposure, No Dyspnea Gastrointestinal : No Nausea, No Vomiting, No Diarrhea, No Constipation, complaining of sharp abdominal pain that self-resolved, No Hematochezia, No Melena Genitourinary : no irregular bleeding, No Dysuria, No Urinary Frequency, No Hematuria, No Urinary Incontinence, No Urgency, No Flank Pain, No Urinary Flow Changes, No Hesitancy Musculoskeletal : No joint pain, No Myalgias, No Joint Swelling Skin : No Skin Lesions, No rash Neuro : No Weakness, No Numbness, No Paresthesias, No Loss of Consciousness, No Dizziness, No Headache Psych : No Anxiety/Panic, No Depression, No SI/HI/AH/VH, No Social Issues, Heme/Lymph: No Bruising, No Bleeding,No Lymphadenopathy Endocrine : No Polyuria, No Polydipsia, No Temperature Intolerance Physical Exam Vital Signs: Vital Signs: Last Vital Signs Temp 98.7 F 08/31/20 19:42 Pulse 91 08/31/20 19:42 Resp 18 08/31/20 19:42 BP 141/79 H 08/31/20 19:42 Pulse Ox 99 08/31/20 19:42 Body Mass Index 28.7 Appearance: Alert. Oriented X3. No acute distress. Eyes: Pupils equal, round and reactive to light. ENT: Pharynx normal. Neck: Normal inspection. Neck supple. No lymph nodes noted. No crepitus CVS: Normal heart rate and rhythm. Pulses normal. Normal S1 and S2 Respiratory: No respiratory distress. Breath sounds normal. No Wheezing. No rales Abdomen: Soft and nontender. No rigidity. No distention. Skin: Skin warm and dry. Normal skin color. Normal skin turgor. Extremities: No lower extremity edema. No lower extremity edema. No Lacerations. No Rash Neuro: Oriented X 3. No motor deficit. No sensory deficit. Moving all extermities. No slurred speech. Course Course Course Narrative: Given the patient's prior history, I discussed with the patient that we should get a CT scan of his abdomen. However, patient refused, states the pain is almost gone. Patient did accept to get a KUB and blood work. I discussed the labs with the patient, no acute findings. KUB shows a large amount of stool. Patient states he takes Dulcolax. Patient will be starting MiraLax as well. At this time, patient states that he has no further abdominal pain. I discussed with the patient that if he has any recurrent symptoms or worsening abdominal pain, to return to the emergency room immediately. Patient agrees with plan. MDM - Abdominal Pain Lab Data Result diagrams: 08/31/20 21:25 08/31/20 21:25 Labs: Lab Results 08/31/20 08/31/20 Range/Units 21:25 21:25 WBC 9.9 (4.8-10.8) X10*3/uL RBC 4.66 (4.60-5.80) X10*6/uL Hgb 14.8 (14.0-18.0) g/dl Hct 44.4 (42-52) % MCV 95.3 (80-98) fL MCH 31.8 (27.0-33.0) pg MCHC 33.3 (31.0-36.0) g/dl RDW 13.4 (11.0-16.0) % Plt Count 226 (160-400) X10*3/uL MPV 9.4 (9.4-12.4) fL Immature Gran % (Auto) 0.3 (0.0-0.4) % Neut % (Auto) 62.5 (45-73) % Lymph % (Auto) 21.8 (20-40) % [place] % (Auto) 8.0 (2-11) % Eos % (Auto) 6.9 H (0-4) % Baso % (Auto) 0.5 (0-2) % Lymph # (Auto) 2.2 (1.2-4.9) X10*3/uL [place] # (Auto) 0.8 (0.1-1.2) X10*3/uL Eos # (Auto) 0.7 H (0.0-0.4) X10*3/uL Baso # (Auto) 0.1 (0.0-0.2) X10*3/uL Abs Immat Gran (auto) 0.03 (0.00-0.03) X10*3/uL Absolute Neuts (auto) 6.2 (2.0-8.3) X10*3/uL Absolute Nucleated RBC 0.000 (0.0-0.012) X10*3/uL Nucleated RBC % (auto) 0.0 (0.0-0.2) /100WBC Sodium 142 (135-145) mmol/L Potassium 4.3 (3.3-5.1) mmol/L Chloride 108 (96-108) mmol/L Carbon Dioxide 27 (22-29) mmol/L Anion Gap 11 L (12-20) BUN 16 D (9-16) mg/dL Creatinine 0.97 (0.5-1.4) mg/dL Estim Creat Clear Calc 75.6 Estimated GFR > 60 Random Glucose 91 (60-115) mg/dL Calcium 9.2 D (8.4-10.2) mg/dL Total Bilirubin 0.3 (0.0-1.0) mg/dL Direct Bilirubin < 0.2 (0.0-0.5) mg/dL AST 22 (5-37) U/L ALT 28 (0-40) U/L Alkaline Phosphatase 97 (39-117) U/L Total Protein 6.3 L (6.5-8.0) g/dL Albumin 3.8 (3.5-5.0) g/dL Lipase 69 (8-78) U/L Imaging Data KUB: Radiologist's impression: FINDINGS: Large volume of stool seen throughout the colon to the rectum. Significant constipation would be favored over distal obstruction. I do not appreciate significant small bowel dilatation or small bowel obstruction. XR/XR KUB IMPRESSION: Large volume of stool throughout the colon more suggestive of constipation. This appears more prominent when compared to the top lift nailer film from the 08/21/2020 CT scan. ECG Data Attestation: I personally reviewed and interpreted this ECG as follows: (Sinus rhythm, heart rate 84, no ST segment depression or elevation, no T-wave inversion, QTC 472) Discharge Plan Discharge Clinical Impression: Abdominal pain Qualifiers: Abdominal location: generalized Qualified Code(s): R10.84 - Generalized abdominal pain Constipation Qualifiers: Constipation type: unspecified constipation type Qualified Code(s): K59.00 - Constipation, unspecified Patient Disposition: Home, Self-Care Instructions: Constipation (ED), Abdominal Pain (ED) Additional Instructions: Please follow-up with your primary care physician tomorrow. If you have any worsening or new symptoms, please return to the emergency room or call 911 Prescriptions: New polyethylene glycol 3350 [Miralax] 17 gram/dose powder 17 g PO DAILY Qty: 119 RF: 0 No Action docusate sodium 100 mg Capsule 100 mg PO BID Qty: 60 RF: 2 lisinopril 5 mg tablet 5 mg PO DAILY RF: 0 aspirin 81 mg tablet,delayed release (DR/EC) 81 mg PO DAILY RF: 0 atorvastatin 80 mg tablet 80 mg PO .1/2 TABLET DAILY RF: 0 bupropion HCl (smoking deter) 150 mg tablet extended release 12 hr 150 mg PO DAILY RF: 0 Interventions: ED Discharge Assessment Last Done: 08/31/20 22:37 Discharge Date/Time: 08/31/20 22:37 [facility] Past Medical History Medical History Anxiety Benign essential hypertension Claudication of both lower extremities COVID-19 vaccine administered History of diverticulosis Impaired fasting glucose Lumbar degenerative disc disease Lumbar strain Malignant melanoma of nose Overweight (BMI 25.0-29.9) Pure hypercholesterolemia SBO (small bowel obstruction) Skin cancer, 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
--- NOTE | 2020-08-31 21:02 | ECG_ITS ---
Test Reason : ABDOMINAL PAIN Blood Pressure : / mmHG Vent. Rate : 084 BPM Atrial Rate : 084 BPM P-R Int : 190 ms QRS Dur : 104 ms QT Int : 400 ms P-R-T Axes : 035 -35 050 degrees QTc Int : 472 ms Normal sinus rhythm Left axis deviation Cannot rule out Inferior infarct (cited on or before 13-DEC-2016) Abnormal ECG When compared with ECG of 22-JAN-2018 08:59, No significant change was found Referred By: Elisa Santos Electronically Signed By:Escobar Coles
[2020-08-31 21:30] LABS: MANUAL DIFF FLAG NO
[2020-08-31 21:31] LABS: Basophils Absolute Auto 0.1 X10*3/uL (0.0-0.2); Basophils Percent Auto 0.5 % (0-2); Eosinophils Absolute Auto 0.7 X10*3/uL (0.0-0.4); Eosinophils Percent Auto 6.9 % (0-4); Hematocrit 44.4 % (42-52); Hemoglobin 14.8 g/dl (14.0-18.0); Imm Gran Abs Auto 0.03 X10*3/uL (0.00-0.03); Imm Gran Pct Auto 0.3 % (0.0-0.4); Lymphocytes Absolute Auto 2.2 X10*3/uL (1.2-4.9); Lymphocytes Percent Auto 21.8 % (20-40); Mean Corpuscular HGB Conc 33.3 g/dl (31.0-36.0); Mean Corpuscular Hemoglobin 31.8 pg (27.0-33.0); Mean Corpuscular Volume 95.3 fL (80-98); Mean Platelet Volume 9.4 fL (9.4-12.4); Monocytes Absolute Auto 0.8 X10*3/uL (0.1-1.2); Neutrophils Absolute Auto 6.2 X10*3/uL (2.0-8.3); Neutrophils Percent Auto 62.5 % (45-73); Platelet Count 226 X10*3/uL (160-400); Red Blood Count 4.66 X10*6/uL (4.60-5.80); Red Cell Distribution Width 13.4 % (11.0-16.0); White Blood Count 9.9 X10*3/uL (4.8-10.8)
[2020-08-31 22:03] LABS: Alanine Aminotransferase 28 U/L (0-40); Albumin Level 3.8 g/dL (3.5-5.0); Alkaline Phosphatase 97 U/L (39-117); Anion Gap 11 (12-20); Aspartate Amino Transferase 22 U/L (5-37); Bilirubin Direct < 0.2 mg/dL (0.0-0.5); Bilirubin Total 0.3 mg/dL (0.0-1.0); Blood Urea Nitrogen 16 mg/dL (9-16); Calcium 9.2 mg/dL (8.4-10.2); Carbon Dioxide 27 mmol/L (22-29); Chloride 108 mmol/L (96-108); Creatinine Clr Calc Pharmacy 75.6; Estimated Glomerular Filt Rate > 60; Glucose Random 91 mg/dL (60-115); Lipase 69 U/L (8-78); Potassium 4.3 mmol/L (3.3-5.1); Sodium 142 mmol/L (135-145); Total Protein 6.3 g/dL (6.5-8.0)
== END 2020-08-31 22:37 | disposition home or self-care (01) ==
PROVIDERS: Emergency Provider Emergency Medicine; PCP Internal Medicine
DX: K59.00 Constipation, unspecified (principal); R10.84 Generalized abdominal pain; F17.210 Nicotine dependence, cigarettes, uncomplicated; Z71.6 Tobacco abuse counseling; Z79.899 Other long term (current) drug therapy; Z79.82 Long term (current) use of aspirin
CPT/HCPCS: 36415; 74018; 80048; 80076; 83690; 85025; 93005; 99283

== ENCOUNTER 2020-09-13 14:16 | Outpatient (REF) | payer MEDICARE, SELFPAY ==
--- NOTE | ~2020-09-13 | CT_ITS ---
EXAMINATION: CT ABDOMEN AND PELVIS WITH CONTRAST CLINICAL INFORMATION: Abdominal pain. COMPARISON: CT abdomen and pelvis 08/21/2020 TECHNIQUE: Multidetector volumetric images were obtained from the superior aspect of the liver through the pubic symphysis following administration 85 mL of Omnipaque 350 intravenous contrast. Sagittal and coronal reformatted images were obtained on the technologist's workstation. Oral contrast: No. This CT examination was performed using dose optimization techniques as appropriate, variously including the following: *Automated exposure control *Adjustment of mA and/or kV according to patient size (this includes techniques or standardized protocols for targeted exams where dose is matched to indication/reason for exam; i.e. extremities or head) *Use of iterative reconstruction technique DLP: 416 mGy-cm FINDINGS: LUNG BASES: The visualized lung bases are unremarkable. LIVER, GALLBLADDER, AND BILIARY TREE: The liver is normal in size, shape, and attenuation. No focal hepatic lesion or biliary ductal dilatation is present. The gallbladder is unremarkable with no evidence of radiopaque gallstones, gallbladder wall thickening, or obvious pericholecystic inflammatory changes. PANCREAS: Unremarkable. SPLEEN: Unremarkable. ADRENAL GLANDS: Unremarkable. KIDNEYS AND URETERS: The kidneys are normal in size, shape, and attenuation. No hydronephrosis, hydroureter, or calculi seen. No perinephric stranding. There are bilateral renal cysts. BLADDER: Unremarkable. GASTROINTESTINAL TRACT: There is a xwkweilo-we-acaxh amount of stool, diverticula and gas seen throughout the colon without significant distention. The small bowel loops are normal caliber. Appendix is normal caliber. ABDOMINAL WALL: Small umbilical hernia containing fat. LYMPH NODES: Normal. VASCULAR: Unremarkable. PELVIC VISCERA: Unremarkable. OSSEOUS STRUCTURES: No lytic or sclerotic process seen. There is mild bilateral L3-L4 and L4-L5 facet joint arthropathy. CT/CT abdomen pelvis w con IMPRESSION: Moderate constipation without obstruction. Scattered colonic diverticulosis without diverticulitis. Bilateral renal cysts. No radiopaque urolith or hydronephrosis.
[2020-09-13] MEDS: iohexoL 350 MG/ML 100 ML INFUS..BTL IV (15:26)
== END 2020-09-13 14:17 | disposition home or self-care (01) ==
LOC: HO.CT 14:16
PROVIDERS: PCP Internal Medicine; Visit Provider Surgery
DX: Z13.89 Encounter for screening for other disorder (principal)
CPT/HCPCS: 74177; Q9967

== ENCOUNTER 2020-09-14 10:17 | Inpatient (IN) | payer MEDICARE, SELFPAY ==
--- NOTE | 2020-09-08 15:13 | P.CONAN_ITS ---
Documented by User: Evelyn Myrick 09/13/20 08:30 HPI - Anesthesia Eval Consult details Narrative: 75yo M for Small Bowel Resection Laparoscopic,poss open h/o of detached retina, Left eye PMFSH Active Problems Active Problems: All Active Problems (Updated 09/07/20 @ 14:22 by Zachery Rios MD) Constipation (Acute) Small bowel tumor (Acute) Abnormal abdominal CT scan (Acute) Overweight (BMI 25.0-29.9) (Acute) Anxiety (Acute) Malignant melanoma of nose (Acute) Claudication of both lower extremities (Acute) Lumbar strain (Acute) Lumbar degenerative disc disease (Acute) Impaired fasting glucose (Acute) Benign essential hypertension (Acute) Pure hypercholesterolemia (Acute) Past Medical History Medical History Anxiety Benign essential hypertension Claudication of both lower extremities Constipation COVID-19 vaccine administered History of diverticulosis History of urinary retention Impaired fasting glucose Lumbar degenerative disc disease Lumbar strain Malignant melanoma of nose Overweight (BMI 25.0-29.9) Pure hypercholesterolemia SBO (small bowel obstruction) Skin cancer, 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 Family History Family History Father Cancer Mother Cancer Brother Colon cancer Family history of problems with anesthesia: No Surgical History Surgical History H/O colonoscopy History of eye surgery History of melanoma excision History of Problems with Anesthesia: No Social History Social History Household Members: None Housing: House Are you a primary transition of care specialist to a significant other at home: No Do you presently have visiting nurse or other home services: No Alcohol intake: never Patient Tobacco Use Status: Current everyday Tobacco user Tobacco use type: Cigarette Cigarettes Per Day: 6 Years Smoked: 60 Smoked in Last 30 Days: Yes Patient Interested in Nicotine Replacement: No Patient Given Instructions on How to Stop Smoking: Yes Date Education Initiated: 09/09/20 Second Hand Smoke Exposure: No Use of substances other than those prescribed or required for medical reasons: No Have you been hit, kicked, punched, or otherwise hurt by someone within the past year? If so, by whom?: No Spiritual Healthcare Practices: none Buddhism Healthcare Practices: none Cultural Healthcare Practices: none Are you DNR?: No Advance Directives: Yes Advance Directives Information Provided: Yes Advance Directives on File: Yes Advance Directives Date on File: 08/17/20 Recently lost weight without trying: No service: Yes Current occupational status: retired Narrative Narrative: No recent illness. No CP/SOB with >4mets Meds Allergies Allergy/AdvReac Type Severity Reaction Status Date / Time No Known Allergies Allergy Verified 09/09/20 12:08 Home Medications Medication Instructions Recorded Confirmed Last Taken Type aspirin 81 mg tablet,delayed 81 mg PO DAILY 02/06/20 09/09/20 08/10/20 History release atorvastatin 80 mg tablet 80 mg PO .1/2 TABLET DAILY tab 02/06/20 09/09/20 Unknown History bupropion HCl (smoking deter) 150 150 mg PO DAILY 02/06/20 09/09/20 Unknown History mg tablet,12 hr sustained-release(smoking deterrent) lisinopril 5 mg tablet 5 mg PO DAILY 02/06/20 09/09/20 Unknown History Exam Exam Date and Time: September 08, 2020 1513 Pertinent Lab Results Pertinent Lab Results: Laboratory Tests 08/31/20 08/31/20 21:25 21:25 WBC 9.9 Hgb 14.8 Hct 44.4 Plt Count 226 Sodium 142 Potassium 4.3 Chloride 108 Carbon Dioxide 27 BUN 16 D Creatinine 0.97 Laboratory Tests 09/09/20 13:34 Blood Type O Positive Antibody Screen NEGATIVE Narrative Narrative: EKG 08/2020 Vent. Rate : 084 BPM Atrial Rate : 084 BPM P-R Int : 190 ms QRS Dur : 104 ms QT Int : 400 ms P-R-T Axes : 035 -35 050 degrees QTc Int : 472 ms Normal sinus rhythm Left axis deviation Cannot rule out Inferior infarct (cited on or before 13-DEC-2016) Abnormal ECG When compared with ECG of 22-JAN-2018 08:59, No significant change was found Airway Mallampati Class: III TM Dist: >3cm Neck ROM: Full Denture: Upper Loose/Missing/Broken Teeth: Yes (Lower molars) Heart: RRR Lungs: CTAB Assessment and Plan Assessment Anesthesia Assessment: Anesthesia Plan Discussed, Smoking Cess. 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 Family History Family History Father Cancer Mother Cancer Brother Colon cancer Surgical History Surgical History H/O colonoscopy History of eye surgery History of melanoma excision Social History Social History Household Members: None Housing: House Are you a primary transition of care specialist to a significant other at home: No Do you presently have visiting nurse or other home services: No Alcohol intake: never Patient Tobacco Use Status: Current everyday Tobacco user Tobacco use type: Cigarette Cigarettes Per Day: 6 Years Smoked: 60 Smoked in Last 30 Days: Yes Patient Interested in Nicotine Replacement: No Patient Given Instructions on How to Stop Smoking: Yes Date Education Initiated: 09/09/20 Second Hand Smoke Exposure: No Use of substances other than those prescribed or required for medical reasons: No Have you been hit, kicked, punched, or otherwise hurt by someone within the past year? If so, by whom?: No Spiritual Healthcare Practices: none Buddhism Healthcare Practices: none Cultural Healthcare Practices: none Are you DNR?: No Advance Directives: Yes Advance Directives Information Provided: Yes Advance Directives on File: Yes Advance Directives Date on File: 08/17/20 Recently lost weight without trying: No service: Yes Current occupational status: retired Meds Allergies Allergy/AdvReac Type Severity Reaction Status Date / Time No Known Allergies Allergy Verified 09/09/20 12:08 Home Medications Medication Instructions Recorded Confirmed Last Taken Type aspirin 81 mg tablet,delayed 81 mg PO DAILY 02/06/20 09/09/20 08/10/20 History release atorvastatin 80 mg tablet 80 mg PO .1/2 TABLET DAILY tab 02/06/20 09/09/20 Unknown History bupropion HCl (smoking deter) 150 150 mg PO DAILY 02/06/20 09/09/20 Unknown History mg tablet,12 hr sustained-release(smoking deterrent) lisinopril 5 mg tablet 5 mg PO DAILY 02/06/20 09/09/20 Unknown History Exam Airway Mallampati Class: III TM Dist: >3cm Neck ROM: Full Denture: Upper Loose/Missing/Broken Teeth: Yes (Lower teeth broken no loose) Heart: [id number] Lungs: cta b/l Assessment and Plan Assessment Anesthesia Assessment: Anesthesia Plan Discussed, PAT Visit and Chart Reviewed Final Anesthetic Review NPO: Yes ASA Class: III Final Preanesthetic Review: No Changes in Pt Med Stat, Meds/Allgs Chart Reviewed, Consent Obtained/Reviewed and Anes Risks/Benef Reviewed Patient Risk: Intermediate Procedure Risk: Low Assessment/Block/Sedation in SS: Assess/Block/Sedation-SS Anesthetic Plan Anesthetic Plan: GA and Agree w/ Assess. and Plan Disposition: Standard PACU
[2020-09-09 12:09] VITALS: BP 128/71; PULSE 84; RESP 16; O2SAT 97; BMI 28.7
[2020-09-14] VITALS (11 sets, daily range): BP systolic 116–145; BP diastolic 58–83; PULSE 75–92; RESP 12–18; TEMP 36.1–37; O2SAT 93–99
[2020-09-14 10:38] LABS: COVID-19 Test Negative (Negative)
[2020-09-14] MEDS: Lactated Ringers 1,000 ML 100 ML IVCONT (10:44)
--- NOTE | 2020-09-14 11:02 | MHC.SHP ---
Pre-Procedural Eval Section B Chief Complaint: S/P laparoscopic small bowel resection Allergies: Allergies Allergy/AdvReac Type Severity Reaction Status Date / Time No Known Allergies Allergy Verified 09/09/20 12:08 Plan I have reviewed the history and physical and performed a pertinent physical examination on my patient. No changes have occurred unless specified.
--- NOTE | 2020-09-14 14:16 | PM.OP ---
Brief Operative Note Date of Service: 09/14/20 Pre-op diagnosis: Small-bowel tumor Post-op diagnosis: same Procedure: Lap- assisted small bowel resection Surgeon: Steve Faulkner MD Anesthesia: GETA Was an Mortgage Analyst used for this Procedure?: No Estimated blood loss (mL): 5 Pathology: other (Small bowel) Condition: stable Disposition: PACU
--- NOTE | 2020-09-14 14:17 | W.PM.OPN ---
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 This with the radiologist and the findings appeared suspicious. I repeated the CT scan yesterday and this revealed similar picture. The patient had given consent for lap assisted small bowel resection with possible conversion to open. He was aware of the risks, benefits, and alternatives The patient was brought to the operating room and placed supine on table under general anesthesia via endotracheal tube. A Soto catheter was inserted. The abdomen was prepped and draped in the usual sterile fashion. A surgical time-out was done. The patient received cefazolin 2 g IV preoperatively I made short incision measuring about 6.5 cm on the skin long which would only starting from just at the level of the umbilicus inferiorly using blade 10. This was carried down through the full-thickness of the skin and thick subcutaneous fat with electrocautery to expose the fascia. The fascia was incised. The peritoneum was entered. I lengthened the the fascial incision to optimize the skin incision. I positioned the Chintan wound retractor and applied the GelPort on to this. I visually examined the small bowel loops within the field of view with a Betts retractor lifting up the left side of the abdominal wall and I could not see any obvious abnormal small bowel segment. I insufflated through a pressure of 15 minutes mercury using a port site through the GelPort. I used a 30 degree 10 mm laparoscope to examine the peritoneal cavity. With laparoscopic visualization, I inserted a 5/12 mm port epigastric area through a small stab incision. I moved the laparoscope to this epigastric port. I then placed my hand through the GelPort and with laparoscopic visualization I proceeded to palpate and examine the small bowel loops on the left side of the abdomen corresponding to the location of the [address] scan. I was eventually able to feel the segment with the tumor. I gently brought this out through the Chintan wound protractor. This was a firm tumor measuring probably about 4 cm in diameter. I pulled this segment out through the field. I chose a point of resection proximal and distal to this and created a mesenteric window on its area. I applied a IRENE 60 mm stapler to divide the small bowel segment both distal and proximal aspects, with about a 5 cm margin of normal looking small bowel. I then marked my planned line of transection on the mesentery using electrocautery. I used the LigaSure to divide the attached mesentery with care being taken so as to include the likely lymphatic basin. This segment of the small bowel was completely transected off of the mesentery of the sent for immediate gross. I then proceeded to do the [id number] anastomosis of both ends of the small bowel. I aligned these two limbs together and opened the apex of each staple line using a curved Woody to enter the lumen. I positioned each arm of the IRENE 60 mm stapler on the anti mesenteric margin of each limb. I then confirmed that there was no bowel loop caught within the stapler. After confirmation of good location of the stapler, this was fired to create our [id number] functional anastomosis. The staple line was examined from within the lumen. The staple line appeared intact and there was no bleeding. I completed the anastomosis by closing the enterotomy with a TA 60 mm stapler. I applied a Dexon 3-0 seromuscular stitch at the crotch of the staple line. I closed the mesenteric defect with running Dexon 3-0 stitch using the peritoneum of the mesentery to prevent any hernias. I palpated for the staple line and this appeared to be widely patent. I examined all staple lines and these all appeared to be intact and hemostatic. The anastomosis appeared viable and well perfused as well. I then replaced this small bowel loops back into the peritoneal cavity. I changed gloves and examined the peritoneal cavity laparoscopically. I positioned the omentum to cover the area of the anastomosis. There was good hemostasis throughout the entire peritoneal cavity I therefore desufflated through the Chintan wound retractor. I removed the port and the Chintan wound retractor and closed the fascia with the running Maxon 1 stitch with care being taken cyst so as to ensure that we were not getting any bowel with the stitches. I closed the skin on both incisions with skin kristin. I infiltrated the area around each in skin incision with Marcaine 0.5% for postop analgesia. Dressings were applied The procedure was then completed The patient tolerated the procedure very well. There were no immediate complications. Initial and final counts of sponges and instruments were correct Estimated blood loss was about 10 cc. The patient was extubated without difficulty and transferred to the recovery room with stable vital signs.
--- NOTE | 2020-09-14 15:37 | PM.EVENT ---
Event Note Date of Service: 09/14/20 Event Note: Seen postop - underwent lap assisted small bowel resection Seems to have good pain control Appears comfortable Abdomen soft Stable vital signs Good urine output Pain management Girlfriend Ann Marie ([phone]) and son Silas([phone]) updated
[2020-09-14] MEDS: Lactated Ringers 1,000 ML 80 ML IVCONT (16:00)
[2020-09-14] MEDS: oxyCODONE HCl Immed Release 5 MG TABLET 10 MG PO (17:27)
[2020-09-15] VITALS (10 sets, daily range): BP systolic 101–134; BP diastolic 57–73; PULSE 74–87; RESP 14–18; TEMP 36.4–36.9; O2SAT 91–97
[2020-09-15] MEDS: Morphine Sulfate 4 MG/ML CARTRIDGE 3 MG IVPUSH ×2 (00:02→05:39)
[2020-09-15] MEDS: Lactated Ringers 1,000 ML 80 ML IVCONT ×2 (04:38→17:11)
--- NOTE | 2020-09-15 07:55 | P.PNGS_ITS ---
Subjective Subjective Date of Service: 09/15/20 Interval history: Says he has pain on incision Otherwise had an uneventful night Denies flatus Physical Exam Vital Signs: Vital Signs: Last Vital Signs Temp 97.7 F 09/15/20 07:17 Pulse 76 09/15/20 07:17 Resp 18 09/15/20 07:17 BP 103/67 09/15/20 07:17 Pulse Ox 91 L 09/15/20 07:17 Body Mass Index 28.7 Laboratory Results - last 24 hr 09/15/20 09/15/20 08:29 08:29 WBC 11.3 H RBC 4.07 L Hgb 12.9 L Hct 38.1 L MCV 93.6 MCH 31.7 MCHC 33.9 RDW 13.3 Plt Count 190 MPV 9.6 Absolute Nucleated RBC 0.000 Nucleated RBC % (a uto) 0.0 Sodium 137 Potassium 3.9 Chloride 107 Carbon Dioxide 24 Anion Gap 10 L BUN 15 Creatinine 0.85 Estim Creat Clear Calc 86.3 Estimated GFR > 60 Random Glucose 113 Calcium 8.1 L D Laboratory Results - last 24 hr 09/14/20 10:10 COVID-19 ([facility]) Negative COVID-19 Clin Com See Note Const: General: comfortable and no acute distress Resp: Effort & Inspection: normal respiratory effort Cardio: Rhythm: regular rhythm GI: Other: Dressings dry Inspection: No distended Palpation (GI): Soft to palpation, not firm and no guarding Progress Note: A&P Assessment and plan (1) Small bowel tumor: Status: Acute Assessment and Plan: Status post small bowel resection Looks well Encouraged ambulation Keep on clear liquids DC Soto Await return of GI function Pain management Fall Risk Details Current Medications: Current Medications Generic Name Dose Route Start Last Admin Trade Name Freq PRN Reason Stop Dose Admin Atorvastatin Calcium 80 mg 09/15/20 09:00 Atorvastatin Calcium 80 Mg Tablet PO DAILY AMY Fentanyl 50 mcg 09/14/20 12:10 Fentanyl Citrate/Pf 100 Mcg/2 Ml Vial IVPUSH Q5M PRN Pain, Moderate (Pain Scale 4-6 Heparin Sodium (Porcine) 5,000 unit 09/15/20 10:00 Heparin Sodium,Porcine 5,000 Unit/Ml Vial SUBCUT Q12H AMY Hydromorphone HCl 0.5 mg 09/14/20 12:10 Hydromorphone Hcl 0.5 Mg/0.5 Ml Syringe IVPUSH Q5M PRN Pain, Severe (Pain Scale 7-10) Lactated Ringer's 1,000 mls @ 80 mls/hr 09/14/20 10:00 09/15/20 07:09 Lr IVCONT 80 mls/hr .[id number] AMY Infusion Promethazine HCl 12.5 mg/ 50.5 mls @ 202 mls/hr 09/14/20 12:10 Sodium Chloride IV ONCE PRN Nausea and Vomiting Promethazine HCl 12.5 mg/ 50.5 mls @ 202 mls/hr 09/14/20 14:11 Sodium Chloride IV Q6H PRN nausea Acetaminophen 1,000 mg in 100 mls @ 400 mls/hr 09/14/20 19:00 09/15/20 07:09 Ofirmev IV 09/15/20 13:14 Infused Q6H AMY Infusion Lisinopril 5 mg 09/15/20 09:00 Lisinopril 5 Mg Tablet PO DAILY [facility] Protocol Morphine Sulfate 3 mg 09/14/20 14:11 09/15/20 05:39 Morphine Sulfate 4 Mg/Ml Cartridge IVPUSH 3 mg Q3H PRN Administration Pain, Severe (Pain Scale 7-10) Ondansetron HCl 4 mg 09/14/20 12:10 Ondansetron Hcl 4 Mg/2 Ml Vial IVPUSH ONCE PRN Nausea and Vomiting Ondansetron HCl 4 mg 09/14/20 14:11 Ondansetron Hcl 4 Mg/2 Ml Vial IVPUSH Q8H PRN Nausea Oxycodone HCl 10 mg 09/14/20 12:10 Oxycodone Hcl Immed Release 5 Mg Tablet PO ONCE PRN Pain, Mild (Pain Scale 1-3) Oxycodone HCl 10 mg 09/14/20 14:11 09/14/20 17:27 Oxycodone Hcl Immed Release 5 Mg Tablet PO 10 mg Q4H PRN Administration Pain, Moderate (Pain Scale 4-6 Time Spent With Patient Time: Total time spent is greater than 50% in coordination of care (as documented) at patient's floor/unit and/or counseling patient: Time with patient: 15 - 24 minutes Procedures Date of Service Date of Service: 09/15/20
[2020-09-15 08:41] LABS: Hematocrit 38.1 % (42-52); Hemoglobin 12.9 g/dl (14.0-18.0); Mean Corpuscular HGB Conc 33.9 g/dl (31.0-36.0); Mean Corpuscular Hemoglobin 31.7 pg (27.0-33.0); Mean Corpuscular Volume 93.6 fL (80-98); Mean Platelet Volume 9.6 fL (9.4-12.4); Platelet Count 190 X10*3/uL (160-400); Red Blood Count 4.07 X10*6/uL (4.60-5.80); Red Cell Distribution Width 13.3 % (11.0-16.0); White Blood Count 11.3 X10*3/uL (4.8-10.8)
[2020-09-15] MEDS: lisinopriL 5 MG TABLET PO (08:51)
[2020-09-15] MEDS: oxyCODONE HCl Immed Release 5 MG TABLET 10 MG PO ×3 (08:51→21:07)
[2020-09-15] MEDS: Atorvastatin Calcium 80 MG TABLET PO (08:51)
[2020-09-15 09:02] LABS: Anion Gap 10 (12-20); Blood Urea Nitrogen 15 mg/dL (9-16); Calcium 8.1 mg/dL (8.4-10.2); Carbon Dioxide 24 mmol/L (22-29); Chloride 107 mmol/L (96-108); Creatinine Clr Calc Pharmacy 86.3; Estimated Glomerular Filt Rate > 60; Glucose Random 113 mg/dL (60-115); Potassium 3.9 mmol/L (3.3-5.1); Sodium 137 mmol/L (135-145)
--- NOTE | 2020-09-15 09:57 | MHC.CM.PN ---
Addendum entered by Beulah Herrera 09/15/20 09:59: CORRECTION;HCP IS ON FILE AND HANNAH IS THE SOLE AGENT. PATIENT AWARE AND DOES NOT WISH TO CHANGE THIS AT THIS TIME Original Note: PATIENT LIVES ALONE. HE IS FULLY INDEPENDENT WITH HIS ADLS. NO DME OR VNA SERVICES. GIRLFRIEND HANNAH ([phone]) TO PROVIDE TRANSPORT HOME. CURRENT PLAN IS NO SERVICES; HOWEVER, PATIENT IS AGREEABLE TO CHOOSING A VNA IF ONE IS RECOMMENDED. SON JAKE. IS HCP AND A COPY IS REQUESTED. IMM 09/15 IN CHART.
[2020-09-15] MEDS: Heparin Sodium,Porcine 5,000 UNIT/ML VIAL 5000 UNIT SUBCUT ×2 (10:25→21:06)
--- NOTE | 2020-09-15 11:18 | HO.POSTANES ---
Post Anesthesia Evaluation Post Anesthesia Evaluation Vital Signs: Vital Signs Temp Pulse Resp BP Pulse Ox 09/15/20 08:51 76 103/67 09/15/20 07:17 97.7 F 76 18 103/67 91 L 09/15/20 06:41 18 09/15/20 02:57 97.8 F 87 18 101/58 L 95 09/15/20 02:09 18 09/15/20 01:08 18 09/14/20 23:45 98.2 F 92 18 119/62 94 Anesthesia: General Endotracheal-GETA Mental Status: Awake Pain Control: Satisfactory Nausea/Vomiting: None Hydration: Adequate Anesthesia-Related Issues: No Anes. Related Issues
[2020-09-16 03:24] VITALS: BP 129/74; PULSE 79; RESP 15; TEMP 36.5; O2SAT 96
[2020-09-16] MEDS: oxyCODONE HCl Immed Release 5 MG TABLET 10 MG PO ×2 (03:27→12:55)
[2020-09-16] MEDS: Lactated Ringers 1,000 ML 80 ML IVCONT ×2 (05:39→17:32)
[2020-09-16 07:25] VITALS: BP 141/77; PULSE 83; RESP 18; TEMP 36.1; O2SAT 93
[2020-09-16] MEDS: Morphine Sulfate 4 MG/ML CARTRIDGE 3 MG IVPUSH ×3 (07:28→21:11)
--- NOTE | 2020-09-16 08:19 | PM.PNGS ---
Subjective Subjective Date of Service: 09/16/20 Interval history: Denies significant pain No flatus yet No nausea but has hiccups Ambulating well down the hallway Physical Exam Vital Signs: Vital Signs: Last Vital Signs Temp 96.9 F 09/16/20 07:25 Pulse 83 09/16/20 07:25 Resp 18 09/16/20 07:25 BP 141/77 H 09/16/20 07:25 Pulse Ox 93 09/16/20 07:25 Body Mass Index 28.7 Laboratory Results - last 24 hr 09/15/20 09/15/20 08:29 08:29 WBC 11.3 H RBC 4.07 L Hgb 12.9 L Hct 38.1 L MCV 93.6 MCH 31.7 MCHC 33.9 RDW 13.3 Plt Count 190 MPV 9.6 Absolute Nucleated RBC 0.000 Nucleated RBC % (a uto) 0.0 Sodium 137 Potassium 3.9 Chloride 107 Carbon Dioxide 24 Anion Gap 10 L BUN 15 Creatinine 0.85 Estim Creat Clear Calc 86.3 Estimated GFR > 60 Random Glucose 113 Calcium 8.1 L D Const: General: comfortable and no acute distress Resp: Effort & Inspection: normal respiratory effort Cardio: Rhythm: regular rhythm GI: Other: Distended but soft, incision clean, guarding rebound Progress Note: A&P Assessment and plan (1) Small bowel tumor: Status: Acute Assessment and Plan: Status post small bowel resection Seems a postop ileus Will keep on clear liquids Continue to ambulate Looks well otherwise Await return of GI function Fall Risk Details Current Medications: Current Medications Generic Name Dose Route Start Last Admin Trade Name Freq PRN Reason Stop Dose Admin Atorvastatin Calcium 80 mg 09/15/20 09:00 09/15/20 08:51 Atorvastatin Calcium 80 Mg Tablet PO 80 mg DAILY AMY Administration Fentanyl 50 mcg 09/14/20 12:10 Fentanyl Citrate/Pf 100 Mcg/2 Ml Vial IVPUSH Q5M PRN Pain, Moderate (Pain Scale 4-6 Heparin Sodium (Porcine) 5,000 unit 09/15/20 10:00 09/15/20 21:06 Heparin Sodium,Porcine 5,000 Unit/Ml Vial SUBCUT 5,000 unit Q12H AMY Administration Hydromorphone HCl 0.5 mg 09/14/20 12:10 Hydromorphone Hcl 0.5 Mg/0.5 Ml Syringe IVPUSH Q5M PRN Pain, Severe (Pain Scale 7-10) Lactated Ringer's 1,000 mls @ 80 mls/hr 09/14/20 10:00 09/16/20 05:39 Lr IVCONT 80 mls/hr .[id number] AMY Administration Promethazine HCl 12.5 mg/ 50.5 mls @ 202 mls/hr 09/14/20 12:10 Sodium Chloride IV ONCE PRN Nausea and Vomiting Promethazine HCl 12.5 mg/ 50.5 mls @ 202 mls/hr 09/14/20 14:11 Sodium Chloride IV Q6H PRN nausea Lisinopril 5 mg 09/15/20 09:00 09/15/20 08:51 Lisinopril 5 Mg Tablet PO 5 mg DAILY AMY Administration Protocol Morphine Sulfate 3 mg 09/14/20 14:11 09/16/20 07:28 Morphine Sulfate 4 Mg/Ml Cartridge IVPUSH 3 mg Q3H PRN Administration Pain, Severe (Pain Scale 7-10) Ondansetron HCl 4 mg 09/14/20 12:10 Ondansetron Hcl 4 Mg/2 Ml Vial IVPUSH ONCE PRN Nausea and Vomiting Ondansetron HCl 4 mg 09/14/20 14:11 Ondansetron Hcl 4 Mg/2 Ml Vial IVPUSH Q8H PRN Nausea Oxycodone HCl 10 mg 09/14/20 14:11 09/16/20 03:27 Oxycodone Hcl Immed Release 5 Mg Tablet PO 10 mg Q4H PRN Administration Pain, Moderate (Pain Scale 4-6 Time Spent With Patient Time: Total time spent is greater than 50% in coordination of care (as documented) at patient's floor/unit and/or counseling patient: Time with patient: 15 - 24 minutes Procedures Date of Service Date of Service: 09/16/20 Quality Stroke Does the patient have a stroke diagnosis?: No VTE Prior VTE?: No VTE Risk Level:: Surgical - moderate VTE Device Contraindication: N/A - Device Ordered VTE Drug Contraindication: N/A - Med Ordered
[2020-09-16] MEDS: Heparin Sodium,Porcine 5,000 UNIT/ML VIAL 5000 UNIT SUBCUT ×2 (09:11→21:11)
[2020-09-16] MEDS: lisinopriL 5 MG TABLET PO (09:12)
[2020-09-16] MEDS: Atorvastatin Calcium 80 MG TABLET PO (09:12)
[2020-09-16 11:18] VITALS: BP 143/76; PULSE 85; RESP 16; TEMP 36.6; O2SAT 98
--- NOTE | 2020-09-16 13:53 | PC.NURSE ---
Surgical wound assessment-large abdominal gauze dressing C/D/I, no staining, band-aid on small incision above large dressing. No issues found.
[2020-09-16 15:34] VITALS: BP 126/72; PULSE 88; RESP 15; TEMP 36.9; O2SAT 96
[2020-09-16 19:19] VITALS: BP 131/69; PULSE 82; RESP 14; TEMP 36.7; O2SAT 96
[2020-09-16 23:33] VITALS: BP 154/67; PULSE 84; RESP 18; TEMP 36.8; O2SAT 96
[2020-09-17] MEDS: Morphine Sulfate 4 MG/ML CARTRIDGE 3 MG IVPUSH ×3 (03:02→21:18)
[2020-09-17 03:24] VITALS: BP 120/78; PULSE 82; RESP 17; TEMP 36.6; O2SAT 97
[2020-09-17] MEDS: Lactated Ringers 1,000 ML 80 ML IVCONT ×2 (05:40→18:23)
[2020-09-17 07:39] VITALS: BP 140/79; PULSE 80; RESP 18; TEMP 36.1; O2SAT 94
[2020-09-17 08:00] VITALS: BP 140/79; PULSE 80
[2020-09-17] MEDS: lisinopriL 5 MG TABLET PO (08:00)
[2020-09-17] MEDS: Atorvastatin Calcium 80 MG TABLET PO (08:00)
--- NOTE | 2020-09-17 09:37 | PM.PNGS ---
Subjective Subjective Date of Service: 09/20/20 Interval history: denies flatus has been ambulating denies nausea pain well controlled Physical Exam Vital Signs: Vital Signs: Last Vital Signs Temp 97.0 F 09/17/20 07:39 Pulse 80 09/17/20 08:00 Resp 18 09/17/20 07:39 BP 140/79 H 09/17/20 08:00 Pulse Ox 94 09/17/20 07:39 Body Mass Index 28.7 Const: Other: looks well General: comfortable and no acute distress Resp: Effort & Inspection: normal respiratory effort Cardio: Rate: regular rate GI: Other: distended but soft, incision clean and dry Palpation (GI): no guarding Progress Note: A&P Assessment and plan (1) Small bowel tumor: Status: Acute Assessment and Plan: no flatus likely postop ileus he says he had a similar experience after recent colonoscopy - bloating, distension and decreased BMs looks well otherwise continue on clears await return of GI function ambulating well tentative path report- dw pathologist: likely lymphoma? Fall Risk Details Current Medications: Current Medications Generic Name Dose Route Start Last Admin Trade Name Freq PRN Reason Stop Dose Admin Atorvastatin Calcium 80 mg 09/15/20 09:00 09/17/20 08:00 Atorvastatin Calcium 80 Mg Tablet PO 80 mg DAILY AMY Administration Fentanyl 50 mcg 09/14/20 12:10 Fentanyl Citrate/Pf 100 Mcg/2 Ml Vial IVPUSH Q5M PRN Pain, Moderate (Pain Scale 4-6 Heparin Sodium (Porcine) 5,000 unit 09/15/20 10:00 09/16/20 21:11 Heparin Sodium,Porcine 5,000 Unit/Ml Vial SUBCUT 5,000 unit Q12H AMY Administration Hydromorphone HCl 0.5 mg 09/14/20 12:10 Hydromorphone Hcl 0.5 Mg/0.5 Ml Syringe IVPUSH Q5M PRN Pain, Severe (Pain Scale 7-10) Lactated Ringer's 1,000 mls @ 80 mls/hr 09/14/20 10:00 09/17/20 05:40 Lr IVCONT 80 mls/hr .[id number] AMY Administration Promethazine HCl 12.5 mg/ 50.5 mls @ 202 mls/hr 09/14/20 12:10 Sodium Chloride IV ONCE PRN Nausea and Vomiting Promethazine HCl 12.5 mg/ 50.5 mls @ 202 mls/hr 09/14/20 14:11 Sodium Chloride IV Q6H PRN nausea Lisinopril 5 mg 09/15/20 09:00 09/17/20 08:00 Lisinopril 5 Mg Tablet PO 5 mg DAILY AMY Administration Protocol Morphine Sulfate 3 mg 09/14/20 14:11 09/17/20 08:01 Morphine Sulfate 4 Mg/Ml Cartridge IVPUSH 3 mg Q3H PRN Administration Pain, Severe (Pain Scale 7-10) Ondansetron HCl 4 mg 09/14/20 12:10 Ondansetron Hcl 4 Mg/2 Ml Vial IVPUSH ONCE PRN Nausea and Vomiting Ondansetron HCl 4 mg 09/14/20 14:11 Ondansetron Hcl 4 Mg/2 Ml Vial IVPUSH Q8H PRN Nausea Oxycodone HCl 10 mg 09/14/20 14:11 09/16/20 12:55 Oxycodone Hcl Immed Release 5 Mg Tablet PO 10 mg Q4H PRN Administration Pain, Moderate (Pain Scale 4-6 Time Spent With Patient Time: Total time spent is greater than 50% in coordination of care (as documented) at patient's floor/unit and/or counseling patient: Time with patient: 15 - 24 minutes Procedures Date of Service Date of Service: 09/17/20 Quality Stroke Does the patient have a stroke diagnosis?: No VTE Prior VTE?: No VTE Risk Level:: Surgical - moderate VTE Device Contraindication: N/A - Device Ordered VTE Drug Contraindication: N/A - Med Ordered
[2020-09-17] MEDS: Heparin Sodium,Porcine 5,000 UNIT/ML VIAL 5000 UNIT SUBCUT ×2 (10:05→21:16)
[2020-09-17] MEDS: oxyCODONE HCl Immed Release 5 MG TABLET 10 MG PO ×2 (10:13→15:31)
[2020-09-17 11:05] LABS: Anion Gap 13 (12-20); Blood Urea Nitrogen 13 mg/dL (9-16); Calcium 8.7 mg/dL (8.4-10.2); Carbon Dioxide 24 mmol/L (22-29); Chloride 106 mmol/L (96-108); Creatinine Clr Calc Pharmacy 89.5; Estimated Glomerular Filt Rate > 60; Glucose Random 91 mg/dL (60-115); Potassium 3.7 mmol/L (3.3-5.1); Sodium 139 mmol/L (135-145)
[2020-09-17 11:49] VITALS: BP 142/79; PULSE 86; RESP 18; TEMP 36.8; O2SAT 94
[2020-09-17 15:30] VITALS: BP 148/85; PULSE 82; RESP 20; TEMP 36.6; O2SAT 96
[2020-09-17 19:28] VITALS: BP 140/88; PULSE 86; RESP 20; TEMP 36.4; O2SAT 97
[2020-09-18] VITALS (8 sets, daily range): BP systolic 130–149; BP diastolic 69–86; PULSE 78–87; RESP 14–18; TEMP 36.1–37.1; O2SAT 95–98
[2020-09-18] MEDS: oxyCODONE HCl Immed Release 5 MG TABLET 10 MG PO (03:11)
[2020-09-18] MEDS: Lactated Ringers 1,000 ML 80 ML IVCONT ×2 (06:35→18:28)
--- NOTE | 2020-09-18 08:36 | PM.PNGS ---
Subjective Subjective Date of Service: 09/18/20 Interval history: Patient up and ambulating, feels more comfortable but still distended; no flatus or BM yet. Tolerating the clear liquids without nausea or vomiting Physical Exam Vital Signs: Vital Signs: Last Vital Signs Temp 96.9 F 09/18/20 07:58 Pulse 82 09/18/20 07:58 Resp 18 09/18/20 07:58 BP 142/86 H 09/18/20 07:58 Pulse Ox 98 09/18/20 07:58 Body Mass Index 28.7 Const: General: cooperative, comfortable and no acute distress Resp: Other: coughing up thick phlegm Effort & Inspection: normal respiratory effort GI: Other: distended, few BS, minimal incisional tenderness, tympany Skin: Other: warm, dry, no rash Extrem: General: No edema Progress Note: A&P Assessment and plan (1) Small bowel tumor: Status: Acute Assessment and Plan: Patient feels more comfortable; no flatus yet. Continue clear liquids Await return of bowel function Continue ambulation Path pending. Fall Risk Details Current Medications: Current Medications Generic Name Dose Route Start Last Admin Trade Name Freq PRN Reason Stop Dose Admin Atorvastatin Calcium 80 mg 09/15/20 09:00 09/17/20 08:00 Atorvastatin Calcium 80 Mg Tablet PO 80 mg DAILY AMY Administration Fentanyl 50 mcg 09/14/20 12:10 Fentanyl Citrate/Pf 100 Mcg/2 Ml Vial IVPUSH Q5M PRN Pain, Moderate (Pain Scale 4-6 Heparin Sodium (Porcine) 5,000 unit 09/15/20 10:00 09/17/20 21:16 Heparin Sodium,Porcine 5,000 Unit/Ml Vial SUBCUT 5,000 unit Q12H AMY Administration Hydromorphone HCl 0.5 mg 09/14/20 12:10 Hydromorphone Hcl 0.5 Mg/0.5 Ml Syringe IVPUSH Q5M PRN Pain, Severe (Pain Scale 7-10) Promethazine HCl 12.5 mg/ 50.5 mls @ 202 mls/hr 09/14/20 12:10 Sodium Chloride IV ONCE PRN Nausea and Vomiting Promethazine HCl 12.5 mg/ 50.5 mls @ 202 mls/hr 09/14/20 14:11 Sodium Chloride IV Q6H PRN nausea Lactated Ringer's 1,000 mls @ 80 mls/hr 09/17/20 18:30 09/18/20 06:35 Lr IVCONT 80 mls/hr .[id number] AMY Administration Lisinopril 5 mg 09/15/20 09:00 09/17/20 08:00 Lisinopril 5 Mg Tablet PO 5 mg DAILY AMY Administration Protocol Morphine Sulfate 3 mg 09/14/20 14:11 09/17/20 21:18 Morphine Sulfate 4 Mg/Ml Cartridge IVPUSH 3 mg Q3H PRN Administration Pain, Severe (Pain Scale 7-10) Ondansetron HCl 4 mg 09/14/20 12:10 Ondansetron Hcl 4 Mg/2 Ml Vial IVPUSH ONCE PRN Nausea and Vomiting Ondansetron HCl 4 mg 09/14/20 14:11 Ondansetron Hcl 4 Mg/2 Ml Vial IVPUSH Q8H PRN Nausea Oxycodone HCl 10 mg 09/14/20 14:11 09/18/20 03:11 Oxycodone Hcl Immed Release 5 Mg Tablet PO 10 mg Q4H PRN Administration Pain, Moderate (Pain Scale 4-6 Time Spent With Patient Time: Total time spent is greater than 50% in coordination of care (as documented) at patient's floor/unit and/or counseling patient: Time with patient: 15 - 24 minutes Procedures Date of Service Date of Service: 09/18/20 Quality Stroke Does the patient have a stroke diagnosis?: No VTE Prior VTE?: No VTE Risk Level:: Surgical - moderate VTE Device Contraindication: N/A - Device Ordered VTE Drug Contraindication: N/A - Med Ordered
[2020-09-18] MEDS: Heparin Sodium,Porcine 5,000 UNIT/ML VIAL 5000 UNIT SUBCUT ×2 (09:16→23:27)
[2020-09-18] MEDS: Atorvastatin Calcium 80 MG TABLET PO (09:16)
[2020-09-18] MEDS: lisinopriL 5 MG TABLET PO (09:17)
--- NOTE | 2020-09-18 10:20 | PC.NURSE ---
Pt reported passing fltus and requested advance in diet. Dr Blanco notified. Pt advanced to regular diet. Will monitor
[2020-09-18] MEDS: Morphine Sulfate 4 MG/ML CARTRIDGE 3 MG IVPUSH (23:27)
[2020-09-19 03:34] VITALS: BP 132/73; PULSE 78; RESP 18; TEMP 36.2; O2SAT 96
[2020-09-19 07:21] VITALS: BP 143/74; PULSE 72; RESP 18; TEMP 35.9; O2SAT 96
[2020-09-19] MEDS: lisinopriL 5 MG TABLET PO (08:25)
[2020-09-19] MEDS: Atorvastatin Calcium 80 MG TABLET PO (08:25)
--- NOTE | 2020-09-19 09:17 | PM.PNGS ---
Subjective Subjective Date of Service: 09/19/20 Patient reports: no new complaints, feels better, pain is less, tolerating a regular diet and flatus Interval history: No BM yet Physical Exam Vital Signs: Vital Signs: Last Vital Signs Temp 96.6 F L 09/19/20 07:21 Pulse 72 09/19/20 07:21 Resp 18 09/19/20 07:21 BP 143/74 H 09/19/20 07:21 Pulse Ox 96 09/19/20 07:21 Body Mass Index 28.7 Const: General: healthy appearing, comfortable and no acute distress Resp: Other: Breathing comfortably on room air GI: Other: Soft nondistended, incision clean and intact without erythema, no tympany Skin: Other: Warm and dry, no rash Extrem: Other: No pedal edema Progress Note: A&P Assessment and plan (1) Small bowel tumor: Status: Acute Assessment and Plan: Patient feels improved with decreased abdominal pain, tolerating regular diet without nausea or vomiting. Awaiting return of bowel function, passing some flatus. Path pending. IV out, will discontinue IV meds. Fall Risk Details Current Medications: Current Medications Generic Name Dose Route Start Last Admin Trade Name Freq PRN Reason Stop Dose Admin Atorvastatin Calcium 80 mg 09/15/20 09:00 09/19/20 08:25 Atorvastatin Calcium 80 Mg Tablet PO 80 mg DAILY AMY Administration Fentanyl 50 mcg 09/14/20 12:10 Fentanyl Citrate/Pf 100 Mcg/2 Ml Vial IVPUSH Q5M PRN Pain, Moderate (Pain Scale 4-6 Heparin Sodium (Porcine) 5,000 unit 09/15/20 10:00 09/18/20 23:27 Heparin Sodium,Porcine 5,000 Unit/Ml Vial SUBCUT 5,000 unit Q12H AMY Administration Hydromorphone HCl 0.5 mg 09/14/20 12:10 Hydromorphone Hcl 0.5 Mg/0.5 Ml Syringe IVPUSH Q5M PRN Pain, Severe (Pain Scale 7-10) Promethazine HCl 12.5 mg/ 50.5 mls @ 202 mls/hr 09/14/20 12:10 Sodium Chloride IV ONCE PRN Nausea and Vomiting Promethazine HCl 12.5 mg/ 50.5 mls @ 202 mls/hr 09/14/20 14:11 Sodium Chloride IV Q6H PRN nausea Lactated Ringer's 1,000 mls @ 80 mls/hr 09/17/20 18:30 09/19/20 08:26 Lr IVCONT Not Given .[id number] AMY Lisinopril 5 mg 09/15/20 09:00 09/19/20 08:25 Lisinopril 5 Mg Tablet PO 5 mg DAILY AMY Administration Protocol Morphine Sulfate 3 mg 09/14/20 14:11 09/18/20 23:27 Morphine Sulfate 4 Mg/Ml Cartridge IVPUSH 3 mg Q3H PRN Administration Pain, Severe (Pain Scale 7-10) Ondansetron HCl 4 mg 09/14/20 12:10 Ondansetron Hcl 4 Mg/2 Ml Vial IVPUSH ONCE PRN Nausea and Vomiting Ondansetron HCl 4 mg 09/14/20 14:11 Ondansetron Hcl 4 Mg/2 Ml Vial IVPUSH Q8H PRN Nausea Oxycodone HCl 10 mg 09/14/20 14:11 09/18/20 03:11 Oxycodone Hcl Immed Release 5 Mg Tablet PO 10 mg Q4H PRN Administration Pain, Moderate (Pain Scale 4-6 Time Spent With Patient Time: Total time spent is greater than 50% in coordination of care (as documented) at patient's floor/unit and/or counseling patient: Time with patient: 15 - 24 minutes Procedures Date of Service Date of Service: 09/19/20 Quality Stroke Does the patient have a stroke diagnosis?: No VTE Prior VTE?: No VTE Risk Level:: Surgical - moderate VTE Device Contraindication: N/A - Device Ordered VTE Drug Contraindication: N/A - Med Ordered
[2020-09-19 11:14] VITALS: BP 150/77; PULSE 80; RESP 20; TEMP 36.6; O2SAT 97
[2020-09-19] MEDS: Heparin Sodium,Porcine 5,000 UNIT/ML VIAL 5000 UNIT SUBCUT ×2 (11:18→21:15)
--- NOTE | 2020-09-19 13:12 | PC.NURSE ---
Pt IV out and does not wish to have another started. Spoke to Dr Blanco who is aware. IVF and IV meds discontinued. Pt tolerating diet without n/v. Passing flatus but no BM at this time
[2020-09-19 15:06] VITALS: BP 129/78; PULSE 82; RESP 15; TEMP 37.1; O2SAT 95
--- NOTE | 2020-09-19 17:37 | PC.NURSE ---
PT STATES HAD FORMED BM IN BR. CONTINUES TO PASS FLATUS
[2020-09-19 19:27] VITALS: BP 133/80; PULSE 77; RESP 15; TEMP 36.4; O2SAT 97
[2020-09-19 23:48] VITALS: BP 133/71; PULSE 78; RESP 16; TEMP 36.5; O2SAT 94
[2020-09-20 03:49] VITALS: BP 134/76; PULSE 75; RESP 16; TEMP 36.4; O2SAT 95
[2020-09-20 08:00] VITALS: BP 146/86; PULSE 106; RESP 18; TEMP 36.4; O2SAT 95
--- NOTE | 2020-09-20 08:24 | PM.PNGS ---
Subjective Subjective Date of Service: 09/20/20 Interval history: Feels better Passing good amount of flatus and multiple bowel movements since yesterday afternoon Tolerating diet well Occasional cramping He says he has been ambulating all the time Physical Exam Vital Signs: Vital Signs: Last Vital Signs Temp 97.5 F 09/20/20 03:49 Pulse 75 09/20/20 03:49 Resp 16 09/20/20 03:49 BP 134/76 09/20/20 03:49 Pulse Ox 95 09/20/20 03:49 Body Mass Index 28.7 Const: Other: Looks well General: comfortable and no acute distress Resp: Effort & Inspection: normal respiratory effort Cardio: Rhythm: regular rhythm GI: Other: Incision clean and dry, healing well Inspection: No distended Palpation (GI): Soft to palpation, not firm and no guarding Progress Note: A&P Assessment and plan (1) Small bowel tumor: Status: Acute Assessment and Plan: Status post small bowel resection Had postop ileus, resolved Good BMs, good GI function Says she has good oral intake Looks well Good vital signs He states he is ready to go home Discharge instructions given to the patient Path pending Fall Risk Details Current Medications: Current Medications Generic Name Dose Route Start Last Admin Trade Name Freq PRN Reason Stop Dose Admin Atorvastatin Calcium 80 mg 09/15/20 09:00 09/19/20 08:25 Atorvastatin Calcium 80 Mg Tablet PO 80 mg DAILY AMY Administration Heparin Sodium (Porcine) 5,000 unit 09/15/20 10:00 09/19/20 21:15 Heparin Sodium,Porcine 5,000 Unit/Ml Vial SUBCUT 5,000 unit Q12H AMY Administration Lisinopril 5 mg 09/15/20 09:00 09/19/20 08:25 Lisinopril 5 Mg Tablet PO 5 mg DAILY AMY Administration Protocol Time Spent With Patient Time: Total time spent is greater than 50% in coordination of care (as documented) at patient's floor/unit and/or counseling patient: Time with patient: 15 - 24 minutes Procedures Date of Service Date of Service: 09/20/20 Quality Stroke Does the patient have a stroke diagnosis?: No VTE Prior VTE?: No VTE Risk Level:: Surgical - moderate VTE Device Contraindication: N/A - Device Ordered VTE Drug Contraindication: N/A - Med Ordered
--- NOTE | 2020-09-20 08:46 | MHC.CM.PN ---
PT DISCHARGING HOME SELF-CARE W/DIRECTIONS TO FOLLOW-UP W/DR. FRANZ IN ONE WEEK, [facility]NG FOR TRANSPORT.
[2020-09-20] MEDS: lisinopriL 5 MG TABLET PO (10:03)
[2020-09-20] MEDS: Atorvastatin Calcium 80 MG TABLET PO (10:03)
--- NOTE | 2020-09-21 14:29 | PM.DS ---
DS: Providers Provider Date of Service: 09/20/20 Date of admission: 09/14/20 10:17 Primary care physician: Zachery Rios MD DS: Diagnosis Discharge Diagnosis (1) Small bowel tumor: Status: Acute Problem details: 75-year-old male who had CAT scan showing what appeared to be tumor in the small bowel. I had discussed this with him in the office and he agreed to proceed with small-bowel resection. He therefore underwent scheduled lap assisted resection of a small bowel with the tumor on September 14, 2020. This was an eventful and he tolerated this procedure well. He was admitted to the med surg unit postop. He was started on clear liquids. He tolerated this well. However, he did not have any significant passage of flatus until his postop day number 4. He was therefore kept on clear liquids the whole time. He remained stable during his hospital stay and had good pain control. He started to pass good amounts of flatus and loose stools on postop day 4. and his diet was advanced. He tolerated this well. He had a very benign exam during the hospital stay. He was therefore discharged on September 20, 2020. At the time of his discharge, he was tolerating regular diet. He had stable vital signs. He had good GI functions with good bowel movements and flatus. DS: Medications Discharge Medications Home Medications: Home Medications Medication Instructions Recorded Confirmed aspirin 81 mg tablet,delayed 81 mg PO DAILY 02/06/20 09/09/20 release atorvastatin 80 mg tablet 80 mg PO .1/2 TABLET DAILY tab 02/06/20 09/09/20 bupropion HCl (smoking deter) 150 150 mg PO DAILY 02/06/20 09/09/20 mg tablet,12 hr sustained-release(smoking deterrent) lisinopril 5 mg tablet 5 mg PO DAILY 02/06/20 09/09/20 Previous Rx's Medication Instructions Recorded docusate sodium 100 mg PO BID #60 cap 08/22/20 polyethylene glycol 3350 17 17 g PO DAILY 30 Days #510 g 09/07/20 gram/dose oral powder oxycodone-acetaminophen [Percocet] 1 - 2 tab PO Q4-6H PRN #30 tab 09/17/20 DS: Summary Time Spent with Patient Time attestation: Total time spent providing and/or coordinating discharge services: Discharge coordination time: Less than 30 minutes Quality: Stroke Does the patient have a stroke diagnosis?: No Physical Exam Vital Signs: Vital Signs: Last Vital Signs Temp 97.5 F 09/20/20 08:00 Pulse 106 H 09/20/20 08:00 Resp 18 09/20/20 08:00 BP 146/86 H 09/20/20 08:00 Pulse Ox 95 09/20/20 08:00 Body Mass Index 28.7 Const: General: comfortable and no acute distress Orientation/consciousness: patient oriented x3 Neck: Neck: Yes no lymphadenopathy Resp: Auscultation: clear to auscultation bilaterally Cardio: Rhythm: regular rhythm GI: Other: Incisions clean and dry, healing well, not infected Inspection: No distended Palpation (GI): Soft to palpation, nontender and no guarding Neuro: General: patient oriented x3 DS: Data Data Completed and Pending Pending studies at discharge: Pending at discharge 09/14/20 13:17 Surgical [PTH] Stat Discharge Plan Discharge Patient Disposition: Home, Self-Care Discharge Diagnosis: small bowel tumor Referrals: Zachery Rios MD [Primary Care Provider] - 1 Week Steve Faulkner MD [Physician] - 1 Week Discharge Medications: New oxycodone-acetaminophen [Percocet] 5-325 mg tablet 1 - 2 tab PO Q4-6H PRN (Reason: pain) Qty: 30 RF: 0 Continued docusate sodium 100 mg Capsule 100 mg PO BID Qty: 60 RF: 2 lisinopril 5 mg tablet 5 mg PO DAILY RF: 0 aspirin 81 mg tablet,delayed release (DR/EC) 81 mg PO DAILY RF: 0 atorvastatin 80 mg tablet 80 mg PO .1/2 TABLET DAILY RF: 0 bupropion HCl (smoking deter) 150 mg tablet extended release 12 hr 150 mg PO DAILY RF: 0 polyethylene glycol 3350 [Miralax] 17 gram/dose powder 17 g PO DAILY 30 Days Qty: 510 RF: 12 Discharge Orders: Discharge Order (Routine); Ordered 09/20/20 Ordered By: Steve Faulkner Activity on Discharge: No heavy lifting Stand Alone Forms: Patient Portal Discharge page Activity Restrictions/Additional Instructions: If the incision area is tender, you may apply an ice pack for short intervals (No more than 20 minutes on, followed by at least 20 minutes off). Do not apply heat. Do not use creams, lotions, or topical antibiotics unless instructed to do so by your surgeon. These can cause infection or allergic reaction. OK to shower No lifting more than 15 lb No strenuous activities Call the office for follow-up in 2 weeks - with Dr. Faulkner Call Your Doctor If: -Your temperature exceeds 101.5? F -You experience excessive pain or swelling -You have an unexpected reaction to medication -You have excessive bleeding -You experience continued vomiting/nausea -Your incision begins to separate -Your incision shows signs of infection such as increased redness, swelling, excessive pain, drainage (light blood or clear fluid is normal) or heat Care Plan Goals: pain management with Percocet Health Concerns: pain control postop Plan of Treatment: ffup in office no lifting more than 20 lbs Assessment: doing well Discharge Date/Time: 09/20/20 11:48
== END 2020-09-20 11:48 | disposition home or self-care (01) | DRG 331 ==
LOC: HO.SSSA 12:10 → HO.S3 15:13
PROVIDERS: Admitting Provider Surgery; PCP Internal Medicine; Visit Provider Surgery
PROC: 0DB80ZZ Excision of Small Intestine, Open Approach (ICD-10-PCS; principal; 2020-09-14 11:40)
DX: D37.2 Neoplasm of uncertain behavior of small intestine (principal); Z20.822 Contact with and (suspected) exposure to COVID-19; Z79.82 Long term (current) use of aspirin; Z79.899 Other long term (current) drug therapy
CPT/HCPCS: 36415; 74177; 80048; 85027; 86850; 86900; 86901; 87635; 88271; 88275; 88307; 88309; 88329; 88341; 88342; 88360; 88365; 88377; 99024; J0131; J0690; J1100; J1170; J2250; J2270; J2370; J2405; J3010; Q9967

== ENCOUNTER → 2020-09-27 15:36 | Outpatient (BNVA) | payer MEDICARE, SELFPAY | PROVIDERS: PCP Internal Medicine; Visit Provider Surgery | DX: Z48.815 Encounter for surgical aftercare following surgery on the digestive system (principal); C85.99 Non-Hodgkin lymphoma, unspecified, extranodal and solid organ sites | CPT/HCPCS: 99212 ==

== ENCOUNTER → 2020-10-01 09:57 | Outpatient (BNV) | payer MEDICARE, SELFPAY | PROVIDERS: PCP Internal Medicine; Referring Provider Surgery; Visit Provider Internal Medicine Medical Oncology | DX: C83.39 Diffuse large B-cell lymphoma, extranodal and solid organ sites (principal); I82.C11 Acute embolism and thrombosis of right internal jugular vein; Z79.01 Long term (current) use of anticoagulants | CPT/HCPCS: 99204; 99213; 99214; 99443 ==

== ENCOUNTER → 2020-10-11 14:49 | Outpatient (REF) | payer MEDICARE, SELFPAY ==
--- NOTE | 2020-10-11 14:51 | CA_ITS ---
Transthoracic Echocardiogram Patient (Last, First, Middle): Robert Mcintyre J Gender: Male Date of : 1945 Age: 75 Procedure Date: 10/11/2020 Procedure Type: Transthoracic Echocardiogram Location: OP Height: 175.26 cm Weight: 90.72 kg BSA: 2.07 m2 Heart Rate: bpm BP: 135 / 75 mmHg Snow Remover: Referring MD: Breanna Prakash MD Symptoms: pre chemotherapy for lymphoma Study Quality: Fair ECG Rhythm: Sinus Conclusions: - The left ventricular systolic function is low normal. The visually estimated ejection fraction is between 50-55%. - The basal inferior segment is hypokinetic. - There is mild calcification of the aortic valve. 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 Findings Left Ventricle Normal left ventricular cavity size. There is mildly increased left ventricular wall thickness. The left ventricular systolic function is low normal. The visually estimated ejection fraction is between 50-55%. Diastolic function is normal for age. Wall Motion Rest Echo Findings The basal inferior segment is hypokinetic. Right Ventricle Normal right ventricular cavity size. There is mildly decreased right ventricular systolic function. TAPSE 1.52cm. Atria The left atrium is normal in size. The right atrium is normal in size. Aortic Valve There is mild calcification of the aortic valve. There is no aortic valve stenosis. There is no aortic valve regurgitation. Mitral Valve The mitral valve appears normal. There is no mitral valve regurgitation. There is no mitral valve stenosis. Pulmonic Valve The pulmonic valve was not well visualized. Tricuspid Valve Normal tricuspid valve structure. There is trace tricuspid valve regurgitation. The pulmonary artery systolic pressure is normal. 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 Venous The inferior vena cava is normal in size and collapses greater than 50% with inspiration. Pericardium/Pleural There is no evidence of pericardial effusion. Prior Study Comparison No prior study available for comparison. Measurements 2D Linear Measurements IVSd: 1.27 0.6-0.9/0.6-1.0 cm LVIDd: 4.88 3.9-5.3/4.2-5.9 cm LVIDd Index: 2.36 2.4-3.2/2.2-3.1 cm/m2 LVIDs: 3.39 2.0-3.6 cm LVPWd: 1.22 0.7-1.1 cm Ao Root: 3.70 2.1-3.5 cm LA Diam: 3.30 2.7-3.8/3.0-4.0 cm LAIDs Index: 1.59 1.5-2.3 cm/m2 LV Mass: 295.47 67-162/88-224 g LV Mass Index: 142.74 43-95/49-115 g/m2 LVOT Diam: 2.60 3.0+(-)1.3 cm 2D Systolic Function EF 4C: 55.20 >55% EF 2C: 48.50 >55% EF BiP: 48.60 >55% Mitral Valve MV Pk E: 0.73 MV PK A: 0.93 MV Decel Time: 198.00 E/A: 0.80 E'Lateral: 7.51 E'Medial: 8.05 E/E' Med: 9.10 E/E' Lat: 9.80 PHT: 58.00 MVA PHT: 3.79 Decel Letcher: 3.69 Aortic Valve AoV Pk Alfredo: 1.35 AoV Mn Alfredo: 1.03 AoV VTI: 0.27 AoV Pk Grad: 7.00 Aov Mn Grad: 5.00 CHATA Cont.VTI: 3.49 LVOT LVOT Pk Alfredo: 0.88 LVOT Mn Alfredo: 0.63 LVOT VTI: 0.18 LVOT Pk Grad: 3.00 LVOT Mn Grad: 2.00 LVOT Diam: 2.60 LVOT Area: 5.31 Diastolic Function MV Pk E: 0.73 MV Pk A: 0.93 E/A: 0.80 E'Medial: 8.05 E/E' Med: 9.10 E' Laterial: 7.51 E/E' Lat: 9.80 Tricuspid Valve TR Pk Alfredo: 1.44 TR Pk Grad: 8.00 RA Press: 3.00 RVSP: 11.00 Great Vessels Aorta Ao Root-2D: 3.70 2.0-3.7 cm Ao Annulus: 3.70 1.4-2.6 cm Ao Asc: 4.40 2.1-3.4 cm Updated in Other Vendor System with Status of Final Kahlil Nicholson MD electronically signed on 10/11/2020 4:40:34 PM with status of Final
== END ==
LOC: HO.CARD 14:49
PROVIDERS: PCP Internal Medicine; Visit Provider Internal Medicine Medical Oncology
DX: C85.99 Non-Hodgkin lymphoma, unspecified, extranodal and solid organ sites (principal)
CPT/HCPCS: 93306

== ENCOUNTER 2020-10-12 08:54 | Outpatient (REF) | payer MEDICARE, SELFPAY ==
--- NOTE | ~2020-10-12 | PE_ITS ---
EXAMINATION: Fluorine-18 FDG PET/CT Scan CLINICAL INDICATION: Initial treatment management. Lymphoma small intestine, initial staging. Patient states small intestine neoplasm resection a few weeks ago. PROCEDURE: 63 minutes following the intravenous administration of 17.0 mCi of fluorine 18 FDG, images from the base of the skull to the mid thighs were obtained using a combined PET/CT scanner with CT scan based attenuation correction. No oral contrast was administered. No intravenous contrast was administered. Transverse, coronal, sagittal, and volume reconstruction projections were obtained. The patient's blood glucose as determined by a finger stick, was 95 mg/dl immediately prior to injection. Total CT exam dose-length product 820.82 mGy-cm * These CT images were obtained using dose optimization techniques as appropriate, variously including the following: Automated exposure control * Adjustment of mA and/or kV according to patient size (this includes techniques or standardized protocols for targeted exams where dose is matched to indication/reason for exam; i.e. extremities or head) * Use of iterative reconstruction technique COMPARISON: No previous PET/CT scan is available for comparison. The diagnostic CT scan of the abdomen and pelvis, dated 09/13/2020, is available for comparison. A less recent CT scan of the abdomen and pelvis dated 08/21/2020 is also available for comparison. FINDINGS: (Slice numbers described in this report are numbered superiorly to inferiorly with slice #1 in the head) NECK AND VISUALIZED HEAD: No foci of abnormal FDG activity are noted. The distribution of FDG activity is physiological. There is no cervical lymphadenopathy. THORAX: There are no foci of abnormal FDG activity. No pulmonary nodules are visualized. There is no pleural or pericardial fluid or pneumothorax. There is no mediastinal, supraclavicular, or axillary lymphadenopathy. ABDOMEN AND PELVIS: There is mildly increased FDG activity associated with postsurgical changes in the periumbilical midline abdominal wall. Underlying this a suture line in the small bowel is present with no associated abnormal FDG activity. There is mild FDG activity present throughout the gastrointestinal tract which is likely physiological. There is diverticulosis without evidence of diverticulitis. The hollow viscera are otherwise unremarkable. The liver, gallbladder, spleen and pancreas are unremarkable. There is a small hypodense cyst medially in the upper pole of the right kidney unchanged from the diagnostic IV contrast enhanced CT scan dated 09/13/2020. Additional small subcentimeter hypodense renal cysts present bilaterally on that study are not well visualized on these nondiagnostic CT images. The kidneys are otherwise unremarkable. The adrenal glands are unremarkable. There is no retroperitoneal, mesenteric, pelvic or inguinal lymphadenopathy. Prostate gland is enlarged measuring 5.2 cm in largest transverse dimension. Small fat-containing bilateral inguinal hernias are present. The pelvic organs are otherwise unremarkable. MUSCULOSKELETAL: No foci of abnormal FDG activity are present in the osseous structures. There are degenerative changes in the spine which are most severe in the mid and lower thoracic spine. There are no suspicious sclerotic or lytic lesions visualized. VASCULAR: Vascular calcifications including coronary are noted. PET/PET CT fusion skull to thigh IMPRESSION: 1. No abnormalities suspicious for metastatic or other malignant lesions are noted. A small bowel neoplasm visible on the 08/21/2020 CT scan of the abdomen and pelvis has been resected, and postoperative changes are evident, as described above. 2. Prostatomegaly. 3. Vascular calcifications including coronary.
== END 2020-10-12 08:55 | disposition home or self-care (01) ==
LOC: HO.PET 08:54
PROVIDERS: PCP Internal Medicine; Visit Provider Internal Medicine Medical Oncology
DX: Z13.89 Encounter for screening for other disorder (principal)

== ENCOUNTER 2020-10-15 12:44 | Day surgery (SDC) | payer MEDICARE, SELFPAY ==
--- NOTE | 2020-10-14 08:44 | HO.ANESPROP2 ---
Documented by User: Evelyn Myrick 10/14/20 08:49 HPI - Anesthesia Eval Consult details Narrative: 75yo M for Bone Marrow Biopsy s/p lap bowel resection 09/14/20 with GA-ETT 7 Bx showed Bcell Lymphoma. 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 (Acute) Lumbar strain (Acute) Lumbar degenerative disc disease (Acute) Impaired fasting glucose (Acute) Benign essential hypertension (Acute) Pure hypercholesterolemia (Acute) Past Medical History Medical History Anxiety Benign essential hypertension Claudication of both lower extremities Constipation COVID-19 vaccine administered History of diverticulosis History of urinary retention Impaired fasting glucose Lumbar degenerative disc disease Lumbar strain 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 Onycholysis of toenail Overweight (BMI 25.0-29.9) Pure hypercholesterolemia SBO (small bowel obstruction) Skin cancer, 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 Family History Family History Father Cancer Mother Cancer Brother Colon cancer Family history of problems with anesthesia: No Surgical History Surgical History H/O colonoscopy History of eye surgery History of melanoma excision Status post small bowel resection (~09/14/20) History of Problems with Anesthesia: No Social History Social History Household Members: None Housing: House Are you a primary college and career counselor to a significant other at home: No Do you presently have visiting nurse or other home services: No Alcohol intake: former Patient Tobacco Use Status: Current everyday Tobacco user Tobacco use type: Cigarette Cigarettes Per Day: 4 Years Smoked: 60 Second Hand Smoke Exposure: No Use of substances other than those prescribed or required for medical reasons: No Are you DNR?: No Advance Directives: No Advance Directives Information Provided: Yes Advance Directives Date on File: 08/17/20 service: Yes Current occupational status: retired Meds Allergies Allergy/AdvReac Type Severity Reaction Status Date / Time No Known Allergies Allergy Verified 09/28/20 21:50 Home Medications Medication Instructions Recorded Confirmed Last Taken Type aspirin 81 mg tablet,delayed 81 mg PO DAILY 02/06/20 10/13/20 08/10/20 History release atorvastatin 80 mg tablet 80 mg PO .1/2 TABLET DAILY tab 02/06/20 10/13/20 Unknown History bupropion HCl (smoking deter) 150 150 mg PO DAILY 02/06/20 10/13/20 Unknown History mg tablet,12 hr sustained-release(smoking deterrent) lisinopril 5 mg tablet 5 mg PO DAILY 02/06/20 10/13/20 Unknown History multivitamin 1 tab PO DAILY 10/01/20 10/13/20 Unknown History Exam Exam Date and Time: October 14, 2020 0844 Pertinent Lab Results Pertinent Lab Results: Laboratory Tests 10/01/20 10/01/20 11:15 11:15 WBC 9.2 Hgb 14.7 Hct 44.1 Plt Count 296 D Sodium 142 Potassium 4.7 D Chloride 109 H Carbon Dioxide 25 BUN 12 Creatinine 0.97 Narrative Narrative: ECHO 09/2020 Conclusions: - The left ventricular systolic function is low normal. The visually estimated ejection fraction is between 50-55%. - The basal inferior segment is hypokinetic. - There is mild calcification of the aortic valve. 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 EKG 08/2020 Vent. Rate : 084 BPM Atrial Rate : 084 BPM P-R Int : 190 ms QRS Dur : 104 ms QT Int : 400 ms P-R-T Axes : 035 -35 050 degrees QTc Int : 472 ms Normal sinus rhythm Left axis deviation Cannot rule out Inferior infarct (cited on or before 13-DEC-2016) Abnormal ECG When compared with ECG of 22-JAN-2018 08:59, No significant change was found Assessment and Plan Assessment Anesthesia Assessment: Chart Reviewed Documented by User: Carla Carrasco 10/15/20 13:53 PMFSH Past Medical History Medical History Anxiety Benign essential hypertension Claudication of both lower extremities Constipation COVID-19 vaccine administered History of diverticulosis History of urinary retention Impaired fasting glucose Lumbar degenerative disc disease Lumbar strain 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 Onycholysis of toenail Overweight (BMI 25.0-29.9) Pure hypercholesterolemia SBO (small bowel obstruction) Skin cancer, 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 Family History Family History Father Cancer Mother Cancer Brother Colon cancer Surgical History Surgical History H/O colonoscopy History of eye surgery History of melanoma excision Status post small bowel resection (~09/14/20) Social History Social History Household Members: None Housing: House Are you a primary college and career counselor to a significant other at home: No Do you presently have visiting nurse or other home services: No Alcohol intake: former Patient Tobacco Use Status: Current everyday Tobacco user Tobacco use type: Cigarette Cigarettes Per Day: 4 Years Smoked: 60 Second Hand Smoke Exposure: No Use of substances other than those prescribed or required for medical reasons: No Are you DNR?: No Advance Directives: No Advance Directives Information Provided: Yes Advance Directives Date on File: 08/17/20 service: Yes Current occupational status: retired [employer] Allergies Allergy/AdvReac Type Severity Reaction Status Date / Time No Known Allergies Allergy Verified 09/28/20 21:50 Home Medications Medication Instructions Recorded Confirmed Last Taken Type aspirin 81 mg tablet,delayed 81 mg PO DAILY 02/06/20 10/13/20 08/10/20 History release atorvastatin 80 mg tablet 80 mg PO .1/2 TABLET DAILY tab 02/06/20 10/13/20 Unknown History bupropion HCl (smoking deter) 150 150 mg PO DAILY 02/06/20 10/13/20 Unknown History mg tablet,12 hr sustained-release(smoking deterrent) lisinopril 5 mg tablet 5 mg PO DAILY 02/06/20 10/13/20 Unknown History multivitamin 1 tab PO DAILY 10/01/20 10/13/20 Unknown History Exam Airway Mallampati Class: II TM Dist: >3cm Neck ROM: Limited Assessment and Plan Assessment Anesthesia Assessment: Anesthesia Plan Discussed and Chart Reviewed Final Anesthetic Review NPO: Yes ASA Class: III Final Preanesthetic Review: No Changes in Pt Med Stat, Meds/Allgs Chart Reviewed, Consent Obtained/Reviewed and Anes Risks/Benef Reviewed Patient Risk: Intermediate Procedure Risk: Low Assessment/Block/Sedation in SS: Assess/Block/Sedation-SS Anesthetic Plan Anesthetic Plan: MAC: Disposition: Standard PACU
[2020-10-15 13:25] VITALS: BMI 29.5
[2020-10-15 13:37] VITALS: BP 124/80; PULSE 88; RESP 16; TEMP 36.7; O2SAT 96
[2020-10-15 15:10] VITALS: BP 113/70; PULSE 87; RESP 16; TEMP 36.8; O2SAT 96
--- NOTE | 2020-10-15 15:10 | PM.HEMONCBM ---
Bone Marrow Aspiration - Bone Marrow Aspiration Procedure:: *Service Date: [10/15/20] Pre Op Diagnosis:: Non Hodgkins Lymphoma. Post Op Diagnosis:: NHL. Surgeon:: Breanna Prakash. Anesthesia:: MAC. Consent:: Informed consent obtained from the patient for the procedure. Pros and cons of biopsy explained. The patient was willing to proceed with the procedure under local anesthesia. Procedure in Detail:: *Service Date: 10/15/20. *Procedure: [Bone Marrow Aspirate & Biopsy.] *Pre Op Dx: [Non Hodgekins Lymphoma.] *Post Op Dx: [Same.] The patient was positioned prone. The left posterior superior iliac spine prepped and draped. Under aseptic precautions, pt was given MAC by Anaesthesia. 5 ml of 1% lidocaine used for local anesthesia. A bone marrow aspirate was performed. With the Jamshidi needle, a core biopsy obtained without any complications. Specimens were sent for mckeon's stain, flow cytometry and cytogenetics. Biopsy was sent for histology. The patient tolerated the procedure well. Bandage was applied and patient was positioned on his back for 10 to 15 minutes after the procedure. The patient was advised to call us if he develops any pain or swelling at the surgical site. Follow up in 2 weeks. Thanks, CC: Dr. Rios.
[2020-10-15 15:24] VITALS: BP 127/76; PULSE 86; RESP 16; TEMP 36.8; O2SAT 98
[2020-10-15 15:27] LABS: Baso%MD 0.7 %; Eos%MD 7.2 %; Hematocrit 38.9 % (42-52); Hemoglobin 13.1 g/dl (14.0-18.0); IG%MD 0.5 %; Lymph%MD 26.3 %; Mean Corpuscular HGB Conc 33.7 g/dl (31.0-36.0); Mean Corpuscular Hemoglobin 31.5 pg (27.0-33.0); Mean Corpuscular Volume 93.5 fL (80-98); Mean Platelet Volume 9.5 fL (9.4-12.4); Mono%MD 8.2 %; Neut%MD 57.1 %; Platelet Count 184 X10*3/uL (160-400); Red Blood Count 4.16 X10*6/uL (4.60-5.80); Red Cell Distribution Width 13.5 % (11.0-16.0); White Blood Count 7.6 X10*3/uL (4.8-10.8)
[2020-10-15 16:38] LABS: Band Neutrophils Percent 2 % (3-5); Eosinophils Absolute Manual 0.5 X10*3/UL (0.0-0.8); Eosinophils Percent Manual 7 % (0-4); Lymphocytes Absolute Manual 1.9 X10*3/uL (0.6-4.8); Lymphocytes Percent Manual 25 % (20-40); Monocytes Absolute Manual 0.5 X10*3/uL (0.0-1.2); Monocytes Percent Manual 7 % (2-11); Neutrophils Absolute Manual 4.6 X10*3/uL (2.2-7.9); Neutrophils Percent Manual 59 % (45-73)
[2020-10-15 16:39] LABS: Platelet Estimate NORMAL (NORMAL); Platelet Morphology Comment NORMAL; RBC Morphology NORMAL
[2020-10-16 07:12] LABS: Bone Marrow SEE SEPARATE REPORT
== END 2020-10-15 16:00 | disposition home or self-care (01) ==
PROVIDERS: PCP Internal Medicine; Visit Provider Internal Medicine Medical Oncology
PROC: (CPT 38221; principal; 2020-10-15 14:00)
DX: C85.99 Non-Hodgkin lymphoma, unspecified, extranodal and solid organ sites (principal); Z85.820 Personal history of malignant melanoma of skin; Z85.828 Personal history of other malignant neoplasm of skin; I10 Essential (primary) hypertension; R73.01 Impaired fasting glucose; Z79.82 Long term (current) use of aspirin; Z79.899 Other long term (current) drug therapy; F17.210 Nicotine dependence, cigarettes, uncomplicated
CPT/HCPCS: 38222; 36415; 85007; 85027; 85097; 88184; 88185; 88237; 88264; 88280; 88305; 88311; 88313; 88341; 88342; J1642; J3010

== ENCOUNTER 2020-10-25 12:27 | Outpatient (REF) | payer MEDICARE, SELFPAY ==
[2020-10-25 13:26] LABS: MANUAL DIFF FLAG NO
[2020-10-25 13:34] LABS: Basophils Percent Auto 0.6 % (0-2); Eosinophils Absolute Auto 0.6 X10*3/uL (0.0-0.4); Eosinophils Percent Auto 8.6 % (0-4); Hematocrit 43.5 % (42-52); Hemoglobin 14.1 g/dl (14.0-18.0); Imm Gran Abs Auto 0.02 X10*3/uL (0.00-0.03); Imm Gran Pct Auto 0.3 % (0.0-0.4); Lymphocytes Absolute Auto 1.9 X10*3/uL (1.2-4.9); Lymphocytes Percent Auto 27.9 % (20-40); Mean Corpuscular HGB Conc 32.4 g/dl (31.0-36.0); Mean Corpuscular Hemoglobin 30.7 pg (27.0-33.0); Mean Corpuscular Volume 94.8 fL (80-98); Mean Platelet Volume 10.1 fL (9.4-12.4); Monocytes Absolute Auto 0.7 X10*3/uL (0.1-1.2); Monocytes Percent Auto 10.5 % (2-11); Neutrophils Absolute Auto 3.5 X10*3/uL (2.0-8.3); Neutrophils Percent Auto 52.1 % (45-73); Platelet Count 212 X10*3/uL (160-400); Red Blood Count 4.59 X10*6/uL (4.60-5.80); Red Cell Distribution Width 14.1 % (11.0-16.0); White Blood Count 6.8 X10*3/uL (4.8-10.8)
[2020-10-25 13:45] LABS: Estimated Average Glucose 111 mg/dL; Hemoglobin A1c % 5.5 %
[2020-10-25 13:51] LABS: Alanine Aminotransferase 22 U/L (0-40); Alkaline Phosphatase 97 U/L (39-117); Anion Gap 10 (12-20); Aspartate Amino Transferase 19 U/L (5-37); Bilirubin Total 0.2 mg/dL (0.0-1.0); Blood Urea Nitrogen 16 mg/dL (9-16); Calcium 9.4 mg/dL (8.4-10.2); Carbon Dioxide 28 mmol/L (22-29); Chloride 111 mmol/L (96-108); Cholesterol 151 mg/dL; Estimated Glomerular Filt Rate > 60; Glucose Fasting 84 mg/dL (60-99); HDL Cholesterol 45 mg/dL; LDL Cholesterol Calculated 93 mg/dl; Potassium 4.7 mmol/L (3.3-5.1); Sodium 144 mmol/L (135-145); Total Protein 6.6 g/dL (6.5-8.0); Triglycerides 69 mg/dL
[2020-10-25 14:11] LABS: TSH reflex Free T4 0.81 uIU/mL (0.32-4.0)
[2020-10-25 14:45] LABS: Glucose Urine UA NEG (NEG); Leukocyte Esterase Urine NEG (NEG); Nitrite Urine NEG (NEG); Specific Gravity - Urine 1.025 (1.005-1.025); Urine Blood NEG (NEG); Urine Ketones NEG (NEG); Urine Protein TRACE MG/DL (NEG-TRACE)
[2020-10-25 14:49] LABS: Appearance Urine CLEAR; Color Urine YELLOW
== END 2020-10-25 12:28 | disposition home or self-care (01) ==
LOC: HO.LAB 12:27
PROVIDERS: Absent Provider Internal Medicine Medical Oncology; PCP Internal Medicine; Visit Provider Internal Medicine
DX: I10 Essential (primary) hypertension (principal); E78.00 Pure hypercholesterolemia, unspecified; R73.01 Impaired fasting glucose; E66.3 Overweight
CPT/HCPCS: 36415; 80053; 80061; 81003; 83036; 84443; 85025

== ENCOUNTER 2020-10-26 08:59 | Day surgery (SDC) | payer MEDICARE, SELFPAY ==
[2020-10-26] VITALS (10 sets, daily range): BP systolic 107–135; BP diastolic 60–78; PULSE 75–83; RESP 18; TEMP 36.4–36.8; O2SAT 96–98; BMI 28.7
--- NOTE | ~2020-10-26 | IR_ITS ---
PROCEDURE: IR INSERTION OF TUNNEL CATHETER CLINICAL INFORMATION: Lymphoma needs long-term IV treatment. COMPARISON: None TECHNIQUE: Following explaining ultrasound and fluoroscopy-guided placement of a right tunneled Port-A-Cath procedure, benefits and risk, a written consent was obtained. Preliminary ultrasound imaging was obtained through the right neck and an optimal site was selected and marked on the skin. The right neck and the anterior chest wall was cleaned. All elements of maximal sterile barrier technique followed including use of cap, mask, sterile gown, sterile gloves, a sterile full body drape and hand hygiene. Also followed skin preparation with 2% chlorhexidine for cutaneous antisepsis, and sterile ultrasound preparation with sterile gel and probe cover when applicable. 1% lidocaine was injected along the right anterolateral neck. Under sterile ultrasound guidance a singlewall needle was advanced and right jugular vein was punctured above the clavicle. After obtaining venous return a thin guidewire was advanced into the SVC and needle withdrawn. A 5 Honduran dilator was advanced over the guidewire. The guidewire and the dilator were anchored to the skin with hemostat. Approximately 1 gauze length lateral and inferior to the right neck incision 1% lidocaine was injected. A small skin incision was performed. Through blunt dissection a pocket was created and ary chamber was trialed into the pocket to adequate size. Subsequently the Port-A-Cath was attached to the subcutaneous soft tissues within the pocket with 3-0 two nonabsorbable sutures. 1% lidocaine was advanced from the chest wall incision to the right neck incision subcutaneously. A tunneler attached to the catheter which was attached to the port was advanced subcutaneously and pulled through the right neck incision. The catheter was then sized to 20.5 cm. The 5 Honduran dilator within the sheath with the guidewire in the neck was removed and a longer 0.035 J-wire was advanced into the SVC through the sheath. The sheath was removed and a 10 Honduran dilator and sheath was advanced over the guidewire. The guidewire was removed. The sized catheter was then advanced through the sheath. The catheter was held in position while the peel-away sheath was removed slowly. The catheter tip was then checked under fluoroscopy and lies within the mid SVC. After achieving hemostasis at the right neck incision and right chest wall incision the chest wall incision was sutured with 4-0 and right neck incision was sutured with 3-0 non-absorbable sutures. Steri-Strips were placed at both sites and subsequently sterile dressing placed. Patient tolerated procedure extremely well. 2 mg of Versed and 50 mcg of fentanyl was given during exam and patient monitored by the IR nurse and IR radiologist. IR/IR cvc insert tunnel w prt/swimming pool maintenance IMPRESSION: Successful ultrasound and fluoroscopy-guided placement of a 20.5 Honduran tunneled Port-A-Cath with the tip of the catheter in mid SVC. Fluoroscopy time: 0.4 minutes. Dose area product: 103 cGy/cm.
[2020-10-26 09:17] LABS: Glucose, Whole Blood 99 mg/dL (60-115)
[2020-10-26 09:25] LABS: INTERNATIONAL NORM RATIO 1.2 (0.9-1.1); Prothrombin Time 13.9 SEC (9.9-13.0)
[2020-10-26 09:28] LABS: Partial Thromboplastin Time 39.8 SEC (24.1-38.0)
[2020-10-26] MEDS: Lidocaine HCl 1 % MPF 5 ML VIAL SUBCUT (11:53)
== END 2020-10-26 15:10 | disposition home or self-care (01) ==
PROVIDERS: Radiology Diagnostic Radiology; PCP Internal Medicine; Visit Provider Radiology Diagnostic Radiology
DX: C85.13 Unspecified B-cell lymphoma, intra-abdominal lymph nodes (principal); I10 Essential (primary) hypertension; R73.01 Impaired fasting glucose; F41.9 Anxiety disorder, unspecified; Z79.82 Long term (current) use of aspirin; Z79.899 Other long term (current) drug therapy; F17.210 Nicotine dependence, cigarettes, uncomplicated; Z85.828 Personal history of other malignant neoplasm of skin; Z85.820 Personal history of malignant melanoma of skin
CPT/HCPCS: 36415; 36561; 76937; 82947; 85610; 85730; 99152; 99153; C1769; C1788; J0690; J1642; J2250; J3010

== ENCOUNTER → 2020-10-28 15:31 | Outpatient (BNVA) | payer MEDICARE, SELFPAY | PROVIDERS: PCP Internal Medicine; Referring Provider Internal Medicine; Visit Provider Surgery | DX: Z48.3 Aftercare following surgery for neoplasm (principal); C85.99 Non-Hodgkin lymphoma, unspecified, extranodal and solid organ sites | CPT/HCPCS: 99212 ==

== ENCOUNTER 2020-11-26 15:18 | Emergency (ER) | payer OTHER, SELFPAY ==
--- NOTE | ~2020-11-26 | XR_ITS ---
EXAMINATION: XR SOFT TISSUE NECK CLINICAL INDICATION: Pill stuck in throat COMPARISON: None TECHNIQUE: 2 views of the soft tissue neck were obtained. FINDINGS: The prevertebral soft tissues are normal. No foreign body or abnormal air collection is seen. The epiglottis is normal. There is degenerative spondylosis greatest at C5-C6 and C6-C7. There is multilevel bilateral facet arthritis. There is a right jugular Port-A-Cath seen in the chest. XR/XR soft tissue neck IMPRESSION: Normal soft tissues of the neck. Degenerative changes of the spine.
[2020-11-26 15:39] VITALS: BP 134/72; PULSE 85; RESP 18; TEMP 37.1; O2SAT 98; BMI 28.7
[2020-11-26 18:24] VITALS: BP 156/93; PULSE 96; RESP 16; O2SAT 98
[2020-11-26 20:03] VITALS: BP 126/70; PULSE 82; RESP 16; O2SAT 98
--- NOTE | 2020-11-26 20:03 | ED_ITS ---
HPI - Skin/Abscess/Foreign Bdy General Chief complaint: Skin/Abscess/Foreign Body Stated complaint: Foreign object in throat Time Seen by Provider: 11/26/20 18:50 Source: patient Mode of arrival: ambulatory History of Present Illness HPI narrative: 75-year-old male who presents with complaints of having swallowed half of his atorvastatin medication this morning at 6:30 a.m. and feels that it got caught. He denies any difficulty in handling secretions, shortness of breath, difficulty swallowing, but states that he feels like it is still in the back of his throat. He states that this is happened many times before. Related Data Home Medications Medication Instructions Recorded Confirmed aspirin 81 mg tablet,delayed 81 mg PO DAILY 02/06/20 11/23/20 release atorvastatin 80 mg tablet 80 mg PO .1/2 TABLET DAILY tab 02/06/20 11/23/20 bupropion HCl (smoking deter) 150 150 mg PO DAILY 02/06/20 11/23/20 mg tablet,12 hr sustained-release(smoking deterrent) lisinopril 5 mg tablet 5 mg PO DAILY 02/06/20 11/23/20 multivitamin 1 tab PO DAILY 10/01/20 11/23/20 Zofran 8 mg PO TID PRN 11/23/20 11/23/20 Previous Rx's Medication Instructions Recorded prednisone 20 mg tablet 20 mg PO DAILY #100 tab 10/22/20 chlorpromazine 25 mg tablet 25 mg PO Q6H PRN #30 tab 11/04/20 Allergies Allergy/AdvReac Type Severity Reaction Status Date / Time No Known Allergies Allergy Verified 11/26/20 15:39 Review of Systems Review of Systems: Pertinent positives and negatives as stated in HPI 10 point review of systems is otherwise negative. 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 Surgical History H/O colonoscopy History of eye surgery History of melanoma excision Status post small bowel resection (~09/14/20) Family History Family History Father Cancer Mother Cancer Brother Colon cancer Social History Social History Household Members: None Housing: House Are you a primary long term care social worker to a significant other at home: No Do you presently have visiting nurse or other home services: No Alcohol intake: former Patient Tobacco Use Status: Current everyday Tobacco user Tobacco use type: Cigarette Cigarettes Per Day: 4 Years Smoked: 60 Second Hand Smoke Exposure: No Advance Directives: Yes Advance Directives on File: Yes Advance Directives Date on File: 08/17/20 service: Yes Current occupational status: retired Physical Exam Vital Signs: Vital Signs: Last Vital Signs Temp 98.7 F 11/26/20 15:39 Pulse 82 11/26/20 20:03 Resp 16 11/26/20 20:03 BP 126/70 11/26/20 20:03 Pulse Ox 98 11/26/20 20:03 Body Mass Index 28.7 VITAL SIGNS: Reviewed. GENERAL: Well developed, well nourished, in no acute distress. HEAD: Normocephalic/atraumatic EYES: PERRLA, EOMI OROPHARYNX: no oral lesions noted, posterior pharynx clear, on direct observation no obvious foreign body noted, no trismus\ NECK: Supple, no adenopathy LUNGS: No stridor, Normal breath sounds. No adventitious sounds or accessory muscle use. SpO2<98> CARDIOVASCULAR: Regular rate and rhythm without noted murmurs ABDOMEN: Soft, non-tender, non-distended with bowel sounds. NEUROLOGIC: Alert and oriented x 4. Course Course Course Narrative: 75-year-old male with history and clinical presentation consistent with foreign body sensation likely secondary to large pill and patient experiencing dry mouth. No evidence of obstructed airway or inability to swallow at this time. He discussed with patient different methods that he may be able to you such as pudding/applesauce. Patient otherwise discharged home in stable condition. Review of all investigations negative for acute findings. Discharge Plan Discharge Clinical Impression: Sensation of foreign body Patient Disposition: Home, Self-Care Additional Instructions: 1. Resume all home medications as prescribed. 2. Recommend utilizing pudding, applesauce to facilitate pill swallowing. 3. Recommend [id number] Cepacol for symptom relief of foreign body sensation. 4. Follow-up with your primary care provider in the next 2-3 days for re- evaluation. Return to the ER for acute worsening of symptoms. Prescriptions: No Action multivitamin Tablet 1 tab PO DAILY RF: 0 prednisone 20 mg Tablet 20 mg PO DAILY Qty: 100 RF: 3 chlorpromazine 25 mg Tablet 25 mg PO Q6H PRN (Reason: Hiccups) Qty: 30 RF: 4 Zofran tablet 8 mg PO TID PRN (Reason: Nausea) RF: 0 lisinopril 5 mg tablet 5 mg PO DAILY RF: 0 aspirin 81 mg tablet,delayed release (DR/EC) 81 mg PO DAILY RF: 0 atorvastatin 80 mg tablet 80 mg PO .1/2 TABLET DAILY RF: 0 bupropion HCl (smoking deter) 150 mg tablet extended release 12 hr 150 mg PO DAILY RF: 0 Referrals: Zachery Rios MD [Primary Care Provider] - 2 days
== END 2020-11-26 20:19 | disposition home or self-care (01) ==
PROVIDERS: Emergency Provider Student in an Organized Health Care Education/Training Program; PCP Internal Medicine
DX: R09.89 Other specified symptoms and signs involving the circulatory and respiratory systems (principal); I10 Essential (primary) hypertension; E78.00 Pure hypercholesterolemia, unspecified; F17.210 Nicotine dependence, cigarettes, uncomplicated; Z79.02 Long term (current) use of antithrombotics/antiplatelets; Z79.82 Long term (current) use of aspirin; Z79.899 Other long term (current) drug therapy
CPT/HCPCS: 70360; 99283; 99284

== ENCOUNTER → 2021-01-18 09:18 | Outpatient (REF) | payer OTHER, MEDICARE, SELFPAY ==
--- NOTE | 2021-01-18 09:30 | CA_ITS ---
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 The visually estimated ejection fraction is between 50-55%. Findings Left Ventricle Normal left ventricular cavity size. There is normal left ventricular wall thickness. The left ventricular systolic function is low normal. The visually estimated ejection fraction is between 50-55%. Diastolic function is normal for age. Cannot exclude basal inferior hypokinesis. LV peak GLS 12.3% (diminished). Right Ventricle Normal right ventricular cavity size and systolic function. Prior Study Comparison No significant change compared to prior study dated: 10/11/2020. Measurements M-Mode Liner Measurements Normals - Women/Men LVIDd: 4.56 3.9-5.3/4.2-5.9 cm LVIDd Index: 2.18 1.9-3.2 cm/m2 LVIDs: 3.18 2.0-3.8 cm LVPWd: 0.92 0.6-0.9/0.6-1.0 cm M-Mode Volumes LV EDV: 95.40 LV ESV: 40.30 2D Linear Measurements IVSd: 0.84 0.6-0.9/0.6-1.0 cm LVIDd: 4.39 3.9-5.3/4.2-5.9 cm LVIDd Index: 2.10 2.4-3.2/2.2-3.1 cm/m2 LVPWd: 1.08 0.7-1.1 cm LV Mass: 173.55 67-162/88-224 g LV Mass Index: 83.04 43-95/49-115 g/m2 2D Systolic Function EF 4C: 63.50 >55% EF 2C: 60.90 >55% EF BiP: 62.10 >55% M-Mode Systolic Function FS: 30.30 27-47/25-43% LVEF: 57.80 >55% Mitral Valve MV Pk E: 0.61 MV PK A: 0.77 MV Decel Time: 129.00 E/A: 0.80 E'Lateral: 6.74 E'Medial: 5.77 E/E' Med: 10.60 E/E' Lat: 9.10 PHT: 38.00 MVA PHT: 5.79 Decel [place]: 4.75 Diastolic Function MV Pk E: 0.61 MV Pk A: 0.77 E/A: 0.80 E'Medial: 5.77 E/E' Med: 10.60 E' Laterial: 6.74 E/E' Lat: 9.10 Right Ventricle TAPSE (mm): 2.03 Updated in Other Vendor System with Status of Final Kahlil Nicholson MD electronically signed on 01/18/2021 5:05:45 PM with status of Final
== END ==
LOC: HO.CARD 09:18
PROVIDERS: Visit Provider Internal Medicine Medical Oncology
DX: C85.99 Non-Hodgkin lymphoma, unspecified, extranodal and solid organ sites (principal)
CPT/HCPCS: 93308

== ENCOUNTER 2021-01-18 11:14 | Outpatient (REF) | payer MEDICARE, SELFPAY ==
--- NOTE | ~2021-01-18 | CT_ITS ---
EXAMINATION: CT ANGIOGRAM CHEST WITH AND WITHOUT CONTRAST (CT PULMONARY ANGIOGRAM FOR PE) CLINICAL INFORMATION: Dyspnea on exertion. Lymphoma. On chemo. COMPARISON: None TECHNIQUE: Prior to contrast administration, noncontrast localization images were obtained. Subsequently, multidetector volumetric imaging was performed from the thoracic inlet to below the diaphragms following the administration of 65 mL Omnipaque 350 intravenous contrast. No contrast reaction reported. Sagittal, coronal, and MIP oblique sagittal reformatted images were obtained on the CT workstation, uploaded to PACS, and reviewed. This CT examination was performed using dose optimization techniques as appropriate, variously including the following: *Automated exposure control *Adjustment of mA and/or kV according to patient size (this includes techniques or standardized protocols for targeted exams where dose is matched to indication/reason for exam; i.e. extremities or head) *Use of iterative reconstruction technique Total exam dose-length product 146 mGy-cm FINDINGS: QUALITY OF STUDY/CONTRAST BOLUS: Satisfactory. PULMONARY ARTERIES: No central or segmental pulmonary emboli. THORACIC AORTA: No evidence of aneurysm. LUNG: No focal consolidation, nodules or masses. PLEURA: No pleural effusion or pneumothorax. MEDIASTINUM: The heart size is normal. There is no pericardial effusion. There are coronary artery calcifications present. No abnormal sized mediastinal or hilar lymph nodes visualized. No evidence of septal bowing or right heart strain. The thyroid lobes are symmetrical and normal. The central trachea and the bronchi are widely patent. There is a right central venous port. CHEST WALL/AXILLA: No axillary or internal mammary lymphadenopathy. 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 No acute fracture or lytic process. UPPER ABDOMEN: Visualized liver, spleen, pancreas, and bilateral adrenal glands are unremarkable. No radiopaque gallstones seen. Partially exophytic 1.7 cm cyst seen in the upper pole right kidney. No reflux of contrast into the hepatic veins to suggest elevated right heart pressures. CT/CT angio chest PE protocol IMPRESSION: No evidence of PE. No evidence of aortic aneurysm. No acute parenchymal lung changes. VTE: negative
[2021-01-18] MEDS: iohexoL 350 MG/ML 100 ML INFUS..BTL IV (11:54)
== END 2021-01-18 11:15 | disposition home or self-care (01) ==
LOC: HO.XRAY 11:14
PROVIDERS: Visit Provider Internal Medicine Medical Oncology
DX: R06.00 Dyspnea, unspecified (principal); C85.90 Non-Hodgkin lymphoma, unspecified, unspecified site; Z92.21 Personal history of antineoplastic chemotherapy
CPT/HCPCS: 71275; Q9967

== ENCOUNTER 2021-03-14 11:48 | Outpatient (REF) | payer MEDICARE, SELFPAY ==
--- NOTE | ~2021-03-14 | CT_ITS ---
EXAMINATION: CT ABDOMEN AND PELVIS WITH CONTRAST CLINICAL INFORMATION: Follow-up lymphoma status post 6 cycles of chemotherapy COMPARISON: PET/CT dated 10/12/[address] abdomen/pelvis dated 09/13/2020 TECHNIQUE: Multidetector volumetric images were obtained from the superior aspect of the liver through the pubic symphysis following administration 85 mL of Omnipaque 350 intravenous contrast. Sagittal and coronal reformatted images were obtained on the technologist's workstation. Oral contrast: No This CT examination was performed using dose optimization techniques as appropriate, variously including the following: *Automated exposure control *Adjustment of mA and/or kV according to patient size (this includes techniques or standardized protocols for targeted exams where dose is matched to indication/reason for exam; i.e. extremities or head) *Use of iterative reconstruction technique DLP: 587 mGy-cm FINDINGS: LUNG BASES: The visualized lung bases are unremarkable. LIVER, GALLBLADDER, AND BILIARY TREE: Liver normal in size, contour and morphology. No focal liver lesions. No intra or extrahepatic biliary dilatation. Gallbladder unremarkable. PANCREAS: Unremarkable. SPLEEN: Unremarkable. ADRENAL GLANDS: Unremarkable. KIDNEYS AND URETERS: The kidneys are normal in size, shape, and attenuation. No hydronephrosis or hydroureter. Bilateral simple renal cysts are benign and no further follow-up. There is a 2 mm calculus pole right kidney. No perinephric stranding. BLADDER: Unremarkable. GASTROINTESTINAL TRACT: Enteroenteric anastomosis redemonstrated within the right midabdomen. Anastomosis intact. Left colonic diverticulosis without evidence of diverticulitis. Normal appendix. Stomach unremarkable. ABDOMINAL WALL: Small fat-containing umbilical hernia. LYMPH NODES: Normal. VASCULAR: Aorta is mildly atherosclerotic but normal caliber. Patent venous structures. PELVIC VISCERA: Mild prostatomegaly. Seminal vesicles unremarkable. OSSEOUS STRUCTURES: No acute or suspicious osseous abnormalities. CT/CT abdomen pelvis w con IMPRESSION: * No evidence of recurrent or residual disease within the abdomen or pelvis. * No lymphadenopathy. * Left colonic diverticulosis without evidence of diverticulitis.
[2021-03-14] MEDS: iohexoL 350 MG/ML 100 ML INFUS..BTL IV (14:40)
[2021-03-14] MEDS: Barium Sulfate Oral (Berry) 450 ML ORAL.SUSP 900 ML PO (14:41)
== END 2021-03-14 11:49 | disposition home or self-care (01) ==
LOC: HO.CT 11:48
PROVIDERS: PCP Internal Medicine; Visit Provider Internal Medicine Medical Oncology
DX: C85.90 Non-Hodgkin lymphoma, unspecified, unspecified site (principal); Z92.21 Personal history of antineoplastic chemotherapy
CPT/HCPCS: 74177; Q9967

== ENCOUNTER 2021-05-06 08:09 | Outpatient (REF) | payer MEDICARE, SELFPAY ==
--- NOTE | ~2021-05-06 | CT_ITS ---
CT SOFT TISSUE NECK WITH CONTRAST CLINICAL INFORMATION: Generalized enlarged lymph nodes COMPARISON: Neck radiographs 11/26/2020 TECHNIQUE: Following the intravenous administration of 100 mL of Omnipaque 350 intravenous contrast, helical imaging was performed in the axial plane with generation of coronal and sagittal reformatted images. This CT examination was performed using dose optimization techniques as appropriate, variously including the following: *Automated exposure control *Adjustment of mA and/or kV according to patient size (this includes techniques or standardized protocols for targeted exams where dose is matched to indication/reason for exam; i.e. extremities or head) *Use of iterative reconstruction technique FINDINGS: There is a right IJ Port-A-Cath in place. There is no contrast opacification of the right internal jugular vein extending from just beneath the right jugular bulb at the right skull base through the entire right cervical internal jugular vein to the upper aspect of the right IJ Port-A-Cath, suspected to reflect right IJ thrombosis that can be verified with neck Doppler ultrasound. There are no inflammatory changes adjacent to the right internal jugular vein to suggest thrombophlebitis. There is some soft tissue prominence within the right carotid space just below the skull base near the area of nonopacification of the right internal jugular vein. In light of the patient's history of lymphoma, this can be further assessed with a repeat PET CT to ensure that there is no lymph node or other pathology in this location. There is no additional evidence of cervical lymphadenopathy. The parotid glands are homogeneous in attenuation. The submandibular glands are normal. Small nodules within the right and left thyroid lobe that are below size criteria for follow-up. No contour abnormality or pathologic enhancement is seen within the oral cavity or pharyngeal mucosal space. No retropharyngeal fluid collection is seen. The laryngeal structures are normal. The parapharyngeal fat is preserved. The carotid sheath vasculature opacify normally. No extra mucosal soft tissue mass or fluid collection is seen. The superior mediastinum is unremarkable. The lung apices are clear. The mastoid air cells and visualized portions of the paranasal sinuses are well-aerated. The imaged portions of the brain parenchyma are unremarkable. CT/CT soft tissue neck w con IMPRESSION: - There is a right IJ Port-A-Cath in place. There is no contrast opacification of the right internal jugular vein extending from just beneath the right jugular bulb at the right skull base through the entire right cervical internal jugular vein to the upper aspect of the right IJ Port-A-Cath, suspected to reflect right IJ thrombosis that can be verified with neck Doppler ultrasound. There are no inflammatory changes adjacent to the right internal jugular vein to suggest thrombophlebitis. - There is some soft tissue prominence within the right carotid space just below the skull base near the area of nonopacification of the right internal jugular vein. In light of the patient's history of lymphoma, this can be further assessed with a repeat PET CT to ensure that there is no lymph node or other pathology in this location. - There is no additional evidence of cervical lymphadenopathy. - Small subcentimeter nodules within the right and left thyroid lobe that are below size criteria for sonographic follow-up. Findings discussed with Vijay Montez NP AT 2:27PM on May 10, 2021.
--- NOTE | ~2021-05-06 | XR_ITS ---
EXAMINATION: XR SOFT TISSUE NECK CLINICAL INDICATION: Lump on right side of neck. Generalized enlarged lymph nodes. COMPARISON: Corresponding same day CT soft tissue neck and soft tissue x-rays of the neck 11/26/2020 TECHNIQUE: 2 views of the soft tissue neck were obtained. FINDINGS: Soft tissue films of the neck demonstrate a normal larynx, pharynx and upper trachea. No soft tissue swelling or opaque foreign body is demonstrated. Mild degenerative changes of the mid to lower cervical spine are again noted. Partially visualized vascular catheter of the right chest. Visualized lung apices are well aerated. XR/XR soft tissue neck IMPRESSION: Unremarkable soft tissues of the neck.
[2021-05-06] MEDS: iohexoL 350 MG/ML 100 ML INFUS..BTL IV (09:40)
== END 2021-05-06 08:10 | disposition home or self-care (01) ==
LOC: HO.CT 08:09
PROVIDERS: PCP Internal Medicine; Visit Provider Physician Assistant
DX: R59.1 Generalized enlarged lymph nodes (principal)
CPT/HCPCS: 70360; 70491; Q9967

== ENCOUNTER 2021-05-11 08:15 | Outpatient (REF) | payer MEDICARE, SELFPAY ==
--- NOTE | ~2021-05-11 | US_ITS ---
EXAMINATION: US VENOUS WITH DOPPLER UPPER EXTREMITY, RIGHT CLINICAL INFORMATION: Follow-up right internal jugular vein DVT seen on neck CT scan COMPARISON: Neck CT scan 05/06/2021 TECHNIQUE: Ultrasound of the upper extremity is performed using compression sonography and color and pulse Doppler flow with assessment of augmentation of flow. There is also imaging and Doppler assessment of the jugular and subclavian veins. Spectral analysis with color-flow imaging is performed. FINDINGS: There is occlusive thrombus seen in the right internal jugular vein. The right subclavian, axillary, brachial, basilic and cephalic veins are patent. US/US venous duplex UE RT IMPRESSION: Occlusive thrombus in the right internal jugular vein. Findings were communicated to Dr. Philip Montez by telephone on 05/11/2021 at 12:00 PM
[2021-05-11 08:39] LABS: MANUAL DIFF FLAG NO
[2021-05-11 10:08] LABS: Appearance Urine CLEAR; Color Urine YELLOW; Glucose Urine UA NEG (NEG); Leukocyte Esterase Urine NEG (NEG); Nitrite Urine NEG (NEG); Specific Gravity - Urine 1.025 (1.005-1.025); UACC Culture Trigger NO; Urine Blood TRACE (NEG); Urine Ketones NEG (NEG); Urine Protein NEG (NEG-TRACE)
[2021-05-11 10:17] LABS: Basophils Percent Auto 0.7 % (0-2); Eosinophils Absolute Auto 0.3 X10*3/uL (0.0-0.4); Eosinophils Percent Auto 5.4 % (0-4); Hematocrit 42.4 % (42.0-52.0); Hemoglobin 14.3 g/dl (14.0-18.0); Imm Gran Abs Auto 0.02 X10*3/uL (0.00-0.03); Imm Gran Pct Auto 0.3 % (0.0-0.4); Lymphocytes Absolute Auto 1.2 X10*3/uL (1.2-4.9); Lymphocytes Percent Auto 19.2 % (20-40); Mean Corpuscular HGB Conc 33.7 g/dl (31.0-36.0); Mean Corpuscular Hemoglobin 32.8 pg (27.0-33.0); Mean Corpuscular Volume 97.2 fL (80.0-98.0); Mean Platelet Volume 9.6 fL (9.4-12.4); Monocytes Absolute Auto 0.7 X10*3/uL (0.1-1.2); Monocytes Percent Auto 10.9 % (2-11); Neutrophils Absolute Auto 3.8 x10*3/uL (2.0-8.3); Neutrophils Percent Auto 63.5 % (45-73); Platelet Count 245 X10*3/uL (160-400); Red Blood Count 4.36 X10*6/uL (4.60-5.80); Red Cell Distribution Width 11.9 % (11.0-16.0)
[2021-05-11 10:51] LABS: RBC Urine 0-2 /HPF (0); WBC Urine 0 /HPF (0-4)
[2021-05-11 12:51] LABS: TSH reflex Free T4 2.06 uIU/mL (0.32-4.0); Vitamin D 25-OH Total 34.3 ng/mL (>30)
[2021-05-11 13:02] LABS: Alanine Aminotransferase 33 U/L (0-40); Albumin Level 3.9 g/dL (3.5-5.0); Alkaline Phosphatase 99 U/L (39-117); Anion Gap 11 (12-20); Aspartate Amino Transferase 25 U/L (5-37); Bilirubin Total 0.5 mg/dL (0.0-1.0); Carbon Dioxide 28 mmol/L (22-29); Chloride 107 mmol/L (96-108); Cholesterol 175 mg/dL; Estimated Glomerular Filt Rate > 60; Glucose Fasting 93 mg/dL (60-99); HDL Cholesterol 42 mg/dL; LDL Cholesterol Calculated 117 mg/dl; Sodium 142 mmol/L (135-145); Total Protein 6.5 g/dL (6.5-8.0); Triglycerides 84 mg/dL
[2021-05-11 15:26] LABS: Estimated Average Glucose 111 mg/dL; Hemoglobin A1c % 5.5 %
[2021-05-11 15:33] LABS: Blood Urea Nitrogen 17 mg/dL (9-16); Calcium 9.6 mg/dL (8.4-10.2)
== END 2021-05-11 08:16 | disposition home or self-care (01) ==
LOC: HO.LAB 08:15
PROVIDERS: PCP Internal Medicine; Visit Provider Internal Medicine
DX: I82.C11 Acute embolism and thrombosis of right internal jugular vein (principal); I10 Essential (primary) hypertension; R73.01 Impaired fasting glucose; E55.9 Vitamin D deficiency, unspecified; E78.00 Pure hypercholesterolemia, unspecified
CPT/HCPCS: 36415; 80053; 80061; 81001; 82306; 83036; 84443; 85025; 93971

== ENCOUNTER 2021-05-19 11:25 | Outpatient (REF) | payer MEDICARE, SELFPAY ==
--- NOTE | ~2021-05-19 | US_ITS ---
EXAMINATION: US VENOUS WITH DOPPLER UPPER EXTREMITY, RIGHT CLINICAL INFORMATION: This is a 75-year-old male with a history of right internal jugular vein thrombus. COMPARISON: Comparison is made to a previous study dated 05/11/2021 TECHNIQUE: Ultrasound of the upper extremity is performed using compression sonography and color and pulse Doppler flow with assessment of augmentation of flow. There is also imaging and Doppler assessment of the jugular and subclavian veins. Spectral analysis with color-flow imaging is performed. FINDINGS: There is occlusive thrombus seen in the right internal jugular vein. This thrombus appears similar to the previous study and unchanged. The right subclavian, axillary, brachial, basilic and cephalic veins are patent. US/US venous duplex UE RT IMPRESSION: Occlusive thrombus in the right internal jugular vein. No change when compared to the previous examination.
== END 2021-05-19 11:26 | disposition home or self-care (01) ==
LOC: HO.HMGCX 11:25
PROVIDERS: Visit Provider Internal Medicine Medical Oncology
DX: I82.C11 Acute embolism and thrombosis of right internal jugular vein (principal)
CPT/HCPCS: 93971

== ENCOUNTER 2021-06-09 09:02 | Day surgery (SDC) | payer MEDICARE, SELFPAY ==
--- NOTE | ~2021-06-09 | IR_ITS ---
PROCEDURE: IR VENOUS PORT REMOVAL REFERRING PROVIDER: Breanna Prakash MD PROCEDURAL PERSONNEL: Attending Physician(s): Ramirez Wilson MD Resident Physician(s): None Advanced Practice Provider(s): None PREPROCEDURE DIAGNOSIS: Lymphoma POSTPROCEDURE DIAGNOSIS: Same INDICATION: Port no longer needed ADDITIONAL CLINICAL HISTORY: None COMPLICATIONS: No immediate complications. IR/IR cvc remove tunnel w prt/electro winning operator IMPRESSION: Removal of right-sided tunneled venous chest port. Persistent thrombus within the right internal jugular vein. PLAN: Please re-consult interventional radiology if new port placement is desired. PROCEDURE SUMMARY: - Tunneled venous port removal - Additional procedure(s): Limited ultrasound right neck PROCEDURE DETAILS: PREPROCEDURE: Consent: Informed consent for the procedure including risks, benefits and alternatives was obtained and time out was performed prior to the procedure. Preparation: The site was prepared and draped using maximal sterile barrier technique including cutaneous antisepsis. ANESTHESIA/SEDATION: Level of anesthesia/sedation: No sedation Anesthesia/sedation administered by: Not applicable Total intra-service sedation time (minutes): 0 LIMITED ULTRASOUND: Limited ultrasound of the right neck was performed. There is persistent noncompressible hypoechoic thrombus within the right internal jugular vein. No color Doppler signal is identified within the vessel. PORT REMOVAL: Fluoroscopic image was obtained to document port position. Local anesthesia was administered. An incision was made at the site of the indwelling port. The port was exposed with a combination of sharp and blunt dissection. The port and catheter were removed in their entirety. Pressure was held at the venotomy site for hemostasis. A final image was obtained documenting removal. CLOSURE: The incision was closed and a sterile dressing was applied. Following closure, a fluoroscopic image was obtained. Incision closure technique: Absorbable suture and tissue adhesive RADIATION DOSE: Fluoroscopy time (seconds): 1 Images: 2 Kerma area product (cGy-cm2): 3 ADDITIONAL DETAILS: Additional description of procedure: None Equipment details: None Specimens removed: Port and catheter Estimated blood loss (mL): Less than 10 Standardized report: [email or web address] ATTESTATION: Signer name: Ramirez Wilson I attest that I was present for the entire procedure. I reviewed the stored images and agree with the report as written.
[2021-06-09 09:19] VITALS: BMI 28.7
[2021-06-09 10:32] LABS: INTERNATIONAL NORM RATIO 1.2 (0.9-1.1); Prothrombin Time 14.2 SEC (9.9-13.0)
[2021-06-09 10:35] LABS: Partial Thromboplastin Time 41.7 SEC (24.1-38.0)
[2021-06-09 11:19] LABS: Basophils Percent Auto 0.3 % (0-2); Eosinophils Absolute Auto 0.3 X10*3/uL (0.0-0.4); Eosinophils Percent Auto 4.4 % (0-4); Hematocrit 41.2 % (42.0-52.0); Hemoglobin 13.7 g/dl (14.0-18.0); Imm Gran Abs Auto 0.08 X10*3/uL (0.00-0.03); Imm Gran Pct Auto 1.2 % (0.0-0.4); Lymphocytes Absolute Auto 1.3 X10*3/uL (1.2-4.9); Lymphocytes Percent Auto 19.1 % (20-40); Mean Corpuscular HGB Conc 33.3 g/dl (31.0-36.0); Mean Corpuscular Hemoglobin 32.7 pg (27.0-33.0); Mean Corpuscular Volume 98.3 fL (80.0-98.0); Mean Platelet Volume 9.4 fL (9.4-12.4); Monocytes Absolute Auto 0.7 X10*3/uL (0.1-1.2); Monocytes Percent Auto 10.3 % (2-11); Neutrophils Absolute Auto 4.3 x10*3/uL (2.0-8.3); Neutrophils Percent Auto 64.7 % (45-73); Platelet Count 207 X10*3/uL (160-400); Red Blood Count 4.19 X10*6/uL (4.60-5.80); Red Cell Distribution Width 12.5 % (11.0-16.0); White Blood Count 6.6 X10*3/uL (4.8-10.8)
[2021-06-09 11:41] LABS: MANUAL DIFF FLAG NO
[2021-06-09] MEDS: Lidocaine HCl 1 % 20 ML VIAL 10 ML INFILTRATI (12:10)
[2021-06-09 12:30] VITALS: BP 140/78; PULSE 86; RESP 18; TEMP 36.9; O2SAT 95
[2021-06-09] MEDS: Acetaminophen 325 MG TABLET 650 MG PO (12:30)
[2021-06-09 12:45] VITALS: BP 122/73; PULSE 85; RESP 18; O2SAT 95
[2021-06-09 13:05] VITALS: BP 140/70; PULSE 88; RESP 18; TEMP 36.7; O2SAT 98
== END 2021-06-09 13:20 | disposition home or self-care (01) ==
PROVIDERS: Radiology Diagnostic Radiology; PCP Internal Medicine; Visit Provider Radiology Diagnostic Radiology
PROC: (CPT 36590; principal; 2021-06-09 10:30)
DX: Z45.2 Encounter for adjustment and management of vascular access device (principal); C83.39 Diffuse large B-cell lymphoma, extranodal and solid organ sites; I82.C21 Chronic embolism and thrombosis of right internal jugular vein
CPT/HCPCS: 36415; 36590; 85025; 85610; 85730; J2250; J3010

== ENCOUNTER 2021-07-20 14:23 | Outpatient (REF) | payer MEDICARE, SELFPAY ==
--- NOTE | ~2021-07-20 | US_ITS ---
EXAMINATION: US VENOUS WITH DOPPLER UPPER EXTREMITY, RIGHT CLINICAL INFORMATION: Right internal jugular thrombosis. COMPARISON: 05/19/2021 right upper extremity venous Doppler study. TECHNIQUE: Ultrasound of the upper extremity is performed using compression sonography and color and pulse Doppler flow with assessment of augmentation of flow. There is also imaging and Doppler assessment of the jugular and subclavian veins. Spectral analysis with color-flow imaging is performed. FINDINGS: Positive occlusive thrombus is seen in the right internal jugular vein measuring up to 0.7 cm in width (previously 1.7 cm). There is no evidence for deep venous thrombosis in the right subclavian, axillary, brachial, radial and ulnar veins. The right cephalic and basilic veins are patent. The left internal jugular vein is patent. US/US venous duplex UE RT IMPRESSION: 1. Persistent occlusive thrombus in the right internal jugular vein with mild interval decrease in thrombus burden as detailed above. No evidence for deep venous thrombosis in the remainder of the right upper extremity.
== END 2021-07-20 14:24 | disposition home or self-care (01) ==
LOC: HO.HMGCX 14:23
PROVIDERS: Visit Provider Internal Medicine Medical Oncology
DX: I82.C11 Acute embolism and thrombosis of right internal jugular vein (principal)
CPT/HCPCS: 93971

== ENCOUNTER 2021-10-11 07:49 | Outpatient (REF) | payer MEDICARE, SELFPAY ==
[2021-10-11 08:10] LABS: MANUAL DIFF FLAG NO
[2021-10-11 09:02] LABS: Basophils Absolute Auto 0.1 X10*3/uL (0.0-0.2); Basophils Percent Auto 0.7 % (0-2); Eosinophils Absolute Auto 0.5 X10*3/uL (0.0-0.4); Eosinophils Percent Auto 7.7 % (0-4); Hematocrit 44.7 % (42.0-52.0); Hemoglobin 15.4 g/dl (14.0-18.0); Imm Gran Abs Auto 0.03 X10*3/uL (0.00-0.03); Imm Gran Pct Auto 0.4 % (0.0-0.4); Lymphocytes Absolute Auto 1.3 X10*3/uL (1.2-4.9); Lymphocytes Percent Auto 19.1 % (20-40); Mean Corpuscular HGB Conc 34.5 g/dl (31.0-36.0); Mean Corpuscular Hemoglobin 33.4 pg (27.0-33.0); Mean Platelet Volume 9.9 fL (9.4-12.4); Monocytes Absolute Auto 0.7 X10*3/uL (0.1-1.2); Monocytes Percent Auto 10.1 % (2-11); Neutrophils Absolute Auto 4.2 x10*3/uL (2.0-8.3); Platelet Count 188 X10*3/uL (160-400); Red Blood Count 4.61 X10*6/uL (4.60-5.80); Red Cell Distribution Width 13.5 % (11.0-16.0); White Blood Count 6.7 X10*3/uL (4.8-10.8)
[2021-10-11 09:11] LABS: Estimated Average Glucose 108 mg/dL; Hemoglobin A1c % 5.4 %
[2021-10-11 09:42] LABS: Appearance Urine CLEAR; Color Urine YELLOW; Glucose Urine UA NEG (NEG); Leukocyte Esterase Urine NEG (NEG); Nitrite Urine NEG (NEG); UACC Culture Trigger NO; Urine Blood TRACE (NEG); Urine Ketones NEG (NEG); Urine Protein NEG (NEG-TRACE)
[2021-10-11 10:01] LABS: Renal Epithelial Cells Urine TRACE /LPF; Squamous Epithelial Cell Urine TRACE /LPF
[2021-10-11 10:02] LABS: WBC Urine 0-2 /HPF (0-4)
[2021-10-11 10:04] LABS: Alanine Aminotransferase 26 U/L (0-40); Albumin Level 4.1 g/dL (3.5-5.0); Alkaline Phosphatase 92 U/L (39-117); Anion Gap 10 (12-20); Aspartate Amino Transferase 19 U/L (5-37); Bilirubin Total 0.4 mg/dL (0.0-1.0); Blood Urea Nitrogen 16 mg/dL (9-16); Calcium 9.2 mg/dL (8.4-10.2); Carbon Dioxide 27 mmol/L (22-29); Chloride 107 mmol/L (96-108); Cholesterol 164 mg/dL; Estimated Glomerular Filt Rate > 60; Glucose Fasting 106 mg/dL (60-99); HDL Cholesterol 51 mg/dL; LDL Cholesterol Calculated 99 mg/dl; Potassium 4.3 mmol/L (3.3-5.1); Sodium 140 mmol/L (135-145); Total Protein 6.5 g/dL (6.5-8.0); Triglycerides 72 mg/dL
[2021-10-11 10:09] LABS: TSH reflex Free T4 1.23 uIU/mL (0.32-4.0); Vitamin D 25-OH Total 41.5 ng/mL (>30)
== END 2021-10-11 07:50 | disposition home or self-care (01) ==
LOC: HO.LAB 07:49
PROVIDERS: PCP Internal Medicine; Visit Provider Internal Medicine
DX: C83.39 Diffuse large B-cell lymphoma, extranodal and solid organ sites (principal); I10 Essential (primary) hypertension; E78.00 Pure hypercholesterolemia, unspecified; R73.01 Impaired fasting glucose; E55.9 Vitamin D deficiency, unspecified
CPT/HCPCS: 36415; 80053; 80061; 81001; 82306; 83036; 84443; 85025

== ENCOUNTER 2021-10-20 12:19 | Outpatient (REF) | payer MEDICARE, SELFPAY ==
--- NOTE | ~2021-10-20 | US_ITS ---
EXAMINATION: US VENOUS WITH DOPPLER UPPER EXTREMITY, RIGHT CLINICAL INFORMATION: Follow-up right IJ thrombus COMPARISON: Multiple prior studies dated 07/20/2021, 05/19/2021 and 05/11/2021, CT neck 05/06/2021 TECHNIQUE: Ultrasound of the upper extremity is performed using compression sonography and color and pulse Doppler flow with assessment of augmentation of flow. There is also imaging and Doppler assessment of the jugular and subclavian veins. Spectral analysis with color-flow imaging is performed. FINDINGS: Again seen is hyperechoic occlusive thrombus in the right internal jugular vein which is unchanged when compared to prior studies dating back to at least 05/06/2021. Respiratory variation, normal compression, and augmented flow are noted throughout the remainder of the right upper extremity including the axillary, brachial, cubital, and radial and ulnar veins. There is normal flow in the subclavian vein. The contralateral left internal jugular vein appears normal. 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 All other venous structures appear unremarkable
== END 2021-10-20 12:20 | disposition home or self-care (01) ==
LOC: HO.US 12:19
PROVIDERS: Visit Provider Internal Medicine Medical Oncology
DX: I82.C21 Chronic embolism and thrombosis of right internal jugular vein (principal)
CPT/HCPCS: 93971

== ENCOUNTER 2021-11-19 06:39 | Emergency (ER) | payer MEDICARE, SELFPAY ==
--- NOTE | ~2021-11-19 | US_ITS ---
EXAMINATION: US VENOUS WITH DOPPLER UPPER EXTREMITY, RIGHT CLINICAL INFORMATION: History of internal jugular thrombosis, follow-up. COMPARISON: Right upper extremity venous DVT study dated 10/20/2021. TECHNIQUE: Ultrasound of the upper extremity is performed using compression sonography and color and pulse Doppler flow with assessment of augmentation of flow. There is also imaging and Doppler assessment of the jugular and subclavian veins. Spectral analysis with color-flow imaging is performed. FINDINGS: There has been interval decrease in thrombus burden which is now partially occlusive. Residual echogenic thrombus is seen. There is no evidence for deep venous thrombosis in the right subclavian, axillary, brachial, radial and ulnar veins. The right basilic and cephalic veins are patent. The subcutaneous soft tissues are unremarkable. US/US venous duplex UE RT IMPRESSION: Interval decrease in thrombus burden in the right internal jugular vein with residual partially occlusive, more chronic appearing thrombus. The remainder of the right upper extremity veins are patent.
[2021-11-19 06:53] VITALS: BP 145/87; PULSE 95; RESP 16; TEMP 36.5; O2SAT 98; BMI 28.7
[2021-11-19 07:10] VITALS: BP 120/80; PULSE 90; RESP 14; TEMP 36.6; O2SAT 94
--- NOTE | 2021-11-19 08:02 | ED.GENADULT ---
HPI - General Adult General Chief complaint: Extremity Problem Stated complaint: swollen neck Time Seen by Provider: 11/19/21 07:59 Source: patient Mode of arrival: ambulatory Limitations: no limitations History of Present Illness HPI narrative: 76-year-old male came in for evaluation of right-sided neck swelling. Patient woke up this morning thought that his right side of the neck is more swollen than usual, started since this morning, patient declined any voice change or difficulty handling secretions, able to swallow, no difficulty breathing. No fever, no chills. Patient had similar symptoms in the past when he developed DVT in right IJ vein as a complication after removal of port a cath. Related Data Home Medications Medication Instructions Recorded Confirmed atorvastatin 80 mg tablet 80 mg PO .1/2 TABLET DAILY 02/06/20 10/20/21 bupropion HCl (smoking deter) 150 150 mg PO DAILY 02/06/20 10/20/21 mg tablet,12 hr sustained-release(smoking deterrent) lisinopril 5 mg tablet 5 mg PO DAILY 02/06/20 10/20/21 multivitamin 1 tab PO DAILY 10/01/20 10/20/21 baclofen 20 mg tablet 20 mg PO BID PRN Spasms 03/15/21 10/20/21 apixaban 5 mg (74 tabs) tablets in 5 mg PO BID 06/13/21 10/20/21 a dose pack Previous Rx's Medication Instructions Recorded polyethylene glycol 3350 17 17 g PO DAILY 30 days #510 grams 02/11/21 gram/dose oral powder (Gavilax) Allergies Allergy/AdvReac Type Severity Reaction Status Date / Time No Known Allergies Allergy Verified 10/20/21 14:48 Review of Systems Review of Systems: All other systems are reviewed and are negative Constitutional: Reports as per HPI and Reports no additional constitutional complaints Eyes: Reports as per HPI and Reports no additional eye complaints Reports system reviewed and no additional complaints, except as documented Cardiovascular: Reports as per HPI and Reports no additional cardiovascular complaints Respiratory: Reports as per HPI and Reports no additional respiratory complaints Gastrointestinal: Reports as per HPI and Reports no additional gastrointestinal complaints Genitourinary: Reports no additional female genitourinary complaints Musculoskeletal: Reports no additional musculoskeletal complaints Skin/Breast: Reports system reviewed and no additional complaints, except as docu Psychiatric: Reports no additional psychiatric complaints Endocrine: Reports no additional endocrine complaints Hematologic/Lymphatic: Reports no additional hematologic/lymphatic complaints Allergic/Immunologic: Reports no additional allergic/immunologic complaints Reports system reviewed and no additional complaints, except as documented and Reports Abnormal speech present FOR[facility] Past Medical History Medical History Anxiety Benign essential hypertension Claudication of both lower extremities Constipation COVID-19 vaccine administered History of diverticulosis History of urinary retention Impaired fasting glucose Lumbar degenerative disc disease Lumbar strain 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 Onycholysis of toenail Overweight (BMI 25.0-29.9) Pure hypercholesterolemia SBO (small bowel obstruction) Skin cancer, 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 Surgical History H/O colonoscopy History of eye surgery History of melanoma excision Hx of tooth extraction Status post small bowel resection (~09/14/20) Family History Family History Father Cancer Mother Cancer Brother Colon cancer Social History Social History Household Members: None Housing: House Are you a primary client care specialist to a significant other at home: No Do you presently have visiting nurse or other home services: No Alcohol intake: former Patient Tobacco Use Status: Current someday Tobacco user Tobacco use type: Cigarette Years Smoked: 60 Second Hand Smoke Exposure: No Advance Directives: Yes Advance Directives on File: Yes Advance Directives Date on File: 08/17/20 service: Yes Current occupational status: retired Cognitive needs: No Hearing needs: No Vision needs: No Physical Exam ED Vital Signs: Vital Signs - 24 hr 11/19/21 06:53 11/19/21 07:10 11/19/21 09:45 Temperature 97.7 F 98 F 98.0 F Pulse Rate 95 90 85 Respiratory Rate 16 14 14 Blood Pressure 145/87 H 120/80 141/88 H Pulse Oximetry 98 94 96 Oxygen Delivery Method Room Air Room Air Room Air BMI result Body Mass Index 28.7 Vital signs have been reviewed as appeared to be correct. Blood pressure normal. Heart rate normal. Respiration rate normal. Temperature normal. Oxygen saturation normal. Appearance: Alert. Oriented X3. No acute distress. Head: Normal external exam. Normocephalic. Atraumatic. No Quijano signs noted. No raccoon eyes noted Eyes: PERRLA. EOMI. Conjunctiva and sclera normal. Eyelids normal. ENT: TM's Normal. Pharynx normal. Uvula midline. Moist mucous membranes. No trismus noted. No drooling noted. No muffled voice noted. Neck: Normal inspection. Neck supple. FROM. No adenopathy. Thyroid Normal. No meningeal signs. No neck mass noted. CVS: Normal heart rate and rhythm. Heart sound normal. No murmurs noted. Pulses normal throughout. Respiratory: No respiratory distress. Painless inspiration. Breath sounds normal. No wheezes/rales/rhonchi noted. Chest nontender. No accessory muscle usage noted or decreased air movement noted. Abdomen: Soft and nontender. Bowel sounds normal in all 4 quadrants. No distention noted. No organomegaly noted. No visible injury noted. Back: No CVA tenderness. Full range of motion noted. Skin: Skin warm and dry. Normal skin color. Normal skin turgor. No rashes/lesions/lacerations noted. Extremities: No lower extremity edema. Extremities exhibit normal range of motion. Extremities nontender. Neuro: Oriented X 3. Cranial nerve exam: II-XII are grossly intact No motor deficit. No sensory deficit. Reflexes normal. Course Course Course Narrative: 76-year-old male came in for evaluation of subjective right-sided neck swelling, patient has a patent airway, no voice change, able to swallow with no difficulty, ultrasound of the neck showed interval improvement of right IJ vein thrombus with still partial inclusion patient is taking Eliquis was instructed to continue taking it. Will reassure and discharge the patient to follow up with his oncologist for lymphoma. Medical Decision Making Imaging Data Right upper extremities ultrasound and venous Doppler: Attestation: I personally reviewed and interpreted this imaging study as follows: Radiologist's impression: Interval decrease in thrombus burden in the right internal jugular vein with residual partially occlusive, more chronic appearing thrombus. The remainder of the right upper extremity veins are patent. ? Discharge Plan Discharge Clinical Impression: Chronic deep vein thrombosis (DVT) Patient Disposition: Home, Self-Care Instructions: Deep Vein Thrombosis (ED) Additional Instructions: 1. Follow up with your oncologist. 2. Seek immediate medical attention if any difficulty breathing or difficulty speaking. Prescriptions: No Action multivitamin Tablet 1 tab PO DAILY baclofen 20 mg Tablet 20 mg PO BID MDD 40 PRN (Reason: Spasms) apixaban 5 mg (74 tabs) Tablets,Dose Pack 5 mg PO BID lisinopril 5 mg tablet 5 mg PO DAILY atorvastatin 80 mg tablet 80 mg PO .1/2 TABLET DAILY bupropion HCl (smoking deter) 150 mg tablet extended release 12 hr 150 mg PO DAILY polyethylene glycol 3350 [Gavilax] 17 gram/dose powder 17 g PO DAILY 30 Days Qty: 510 5RF Referrals: Zachery Rios MD [Primary Care Provider] -
[2021-11-19 09:45] VITALS: BP 141/88; PULSE 85; RESP 14; TEMP 36.7; O2SAT 96
--- NOTE | 2021-11-19 09:46 | PC.NURSE ---
Pt ao x 4. Laying in bed. U/S done. awaiting results. Pt aware of plan care.
[2021-11-19] MEDS: Acetaminophen 325 MG TABLET 650 MG PO (10:58)
== END 2021-11-19 11:00 | disposition home or self-care (01) ==
PROVIDERS: Emergency Provider Emergency Medicine; PCP Internal Medicine
DX: I82.C21 Chronic embolism and thrombosis of right internal jugular vein (principal); R22.1 Localized swelling, mass and lump, neck; I10 Essential (primary) hypertension; E78.00 Pure hypercholesterolemia, unspecified; F17.210 Nicotine dependence, cigarettes, uncomplicated; Z79.02 Long term (current) use of antithrombotics/antiplatelets; Z79.899 Other long term (current) drug therapy; Z79.01 Long term (current) use of anticoagulants
CPT/HCPCS: 93971; 99284

== ENCOUNTER 2021-12-09 08:47 | Outpatient (REF) | payer MEDICARE, SELFPAY ==
[2021-12-09 09:08] LABS: MANUAL DIFF FLAG NO
[2021-12-09 10:14] LABS: Basophils Percent Auto 0.6 % (0-2); Eosinophils Absolute Auto 0.5 X10*3/uL (0.0-0.4); Eosinophils Percent Auto 7.8 % (0-4); Hematocrit 44.3 % (42.0-52.0); Imm Gran Abs Auto 0.04 X10*3/uL (0.00-0.03); Imm Gran Pct Auto 0.6 % (0.0-0.4); Lymphocytes Absolute Auto 1.3 X10*3/uL (1.2-4.9); Lymphocytes Percent Auto 18.7 % (20-40); Mean Corpuscular HGB Conc 33.9 g/dl (31.0-36.0); Mean Corpuscular Hemoglobin 32.7 pg (27.0-33.0); Mean Corpuscular Volume 96.5 fL (80.0-98.0); Mean Platelet Volume 9.8 fL (9.4-12.4); Monocytes Absolute Auto 0.6 X10*3/uL (0.1-1.2); Monocytes Percent Auto 9.4 % (2-11); Neutrophils Absolute Auto 4.2 x10*3/uL (2.0-8.3); Neutrophils Percent Auto 62.9 % (45-73); Platelet Count 197 X10*3/uL (160-400); Red Blood Count 4.59 X10*6/uL (4.60-5.80); Red Cell Distribution Width 13.3 % (11.0-16.0); White Blood Count 6.7 X10*3/uL (4.8-10.8)
[2021-12-09 11:00] LABS: Alanine Aminotransferase 27 U/L (0-40); Alkaline Phosphatase 96 U/L (39-117); Anion Gap 13 (12-20); Aspartate Amino Transferase 19 U/L (5-37); Bilirubin Total 0.4 mg/dL (0.0-1.0); Blood Urea Nitrogen 17 mg/dL (9-16); Calcium 9.1 mg/dL (8.4-10.2); Carbon Dioxide 26 mmol/L (22-29); Chloride 107 mmol/L (96-108); Estimated Glomerular Filt Rate > 60; Glucose Random 103 mg/dL (60-115); Potassium 4.4 mmol/L (3.3-5.1); Sodium 142 mmol/L (135-145); Total Protein 6.6 g/dL (6.5-8.0)
== END 2021-12-09 08:48 | disposition home or self-care (01) ==
LOC: HO.LAB 08:47
PROVIDERS: PCP Internal Medicine; Visit Provider Internal Medicine Medical Oncology
DX: C83.39 Diffuse large B-cell lymphoma, extranodal and solid organ sites (principal)
CPT/HCPCS: 36415; 80053; 85025

== ENCOUNTER 2021-12-21 13:40 | Outpatient (REF) | payer MEDICARE, SELFPAY ==
--- NOTE | ~2021-12-21 | CT_ITS ---
EXAMINATION: CT CHEST WITH CONTRAST CLINICAL INFORMATION: Lymphoma follow-up. COMPARISON: Previous chest CT a December 2020 TECHNIQUE: Multidetector volumetric CT imaging of the chest was obtained after the administration of 85 mL of Omnipaque 350 intravenous contrast without immediate adverse reactions. Axial MIP volume rendering provided. Sagittal and coronal reformatted images were obtained. This CT examination was performed using dose optimization techniques as appropriate, variously including the following: *Automated exposure control *Adjustment of mA and/or kV according to patient size (this includes techniques or standardized protocols for targeted exams where dose is matched to indication/reason for exam; i.e. extremities or head) *Use of iterative reconstruction technique DLP: 240 mGy-cm FINDINGS: LUNGS: There is evidence of mild emphysema. There is a 6 mm left upper lobe peripheral or subpleural nodule adjacent to the left heart border axial image 293 series 5. There is a 3 mm right lower lobe nodule axial image 323 series 5. These are new from December 2020 exam. MEDIASTINUM: There are small bilateral thyroid nodules. There are small mediastinal and bilateral hilar lymph nodes. No enlarged lymph nodes. Normal heart size. Upper normal-size ascending thoracic aorta. CORONARY ARTERY CALCIFICATION: Mild PLEURA: There is no pleural effusion. No pleural mass or thickening. AXILLA: No lymphadenopathy. UPPER ABDOMEN: See abdominal and pelvic CT report from the same day. OSSEOUS STRUCTURES: There are degenerative changes of the spine. CT/CT chest w IV con IMPRESSION: Mild emphysema. 2 new pulmonary nodules, largest measuring 6 mm in the left upper lobe. No enlarged lymph nodes. Small bilateral thyroid nodules. No follow-up is warranted based on patient age and size criteria. Fleischner guidelines were followed.
--- NOTE | ~2021-12-21 | CT_ITS ---
EXAMINATION: CT ABDOMEN AND PELVIS WITH CONTRAST CLINICAL INFORMATION: Follow-up small bowel lymphoma COMPARISON: Previous CT scans most recent March 2021 TECHNIQUE: Multidetector volumetric images were obtained from the superior aspect of the liver through the pubic symphysis following administration 85 mL of Omnipaque 350 intravenous contrast. Sagittal and coronal reformatted images were obtained on the technologist's workstation. Oral contrast: Yes This CT examination was performed using dose optimization techniques as appropriate, variously including the following: *Automated exposure control *Adjustment of mA and/or kV according to patient size (this includes techniques or standardized protocols for targeted exams where dose is matched to indication/reason for exam; i.e. extremities or head) *Use of iterative reconstruction technique DLP: 674 mGy-cm FINDINGS: LUNG BASES: The visualized lung bases are unremarkable. LIVER, GALLBLADDER, AND BILIARY TREE: The liver is low in attenuation suggestive of mild fatty infiltration. No focal liver lesion. No biliary duct dilatation. Normal gallbladder. PANCREAS: Unremarkable. SPLEEN: Unremarkable. ADRENAL GLANDS: Unremarkable. KIDNEYS AND URETERS: There are multiple bilateral renal cysts. There is a small stone in the upper pole of the right kidney. BLADDER: Not optimally distended but appears unremarkable. GASTROINTESTINAL TRACT: There are postsurgical changes to the small bowel with small bowel are stable line. There is mild dilatation of the small bowel at the surgical staple line. The small bowel is otherwise normal appearing. No small bowel wall thickening is appreciated. There is no evidence of obstruction. There is stool throughout the colon questionable for constipation. There is diverticulosis of the colon. No evidence of diverticulitis. Normal appendix. Normal stomach. ABDOMINAL WALL: Question postsurgical changes in the periumbilical region. LYMPH NODES: No enlarged lymph nodes. No ascites. VASCULAR: Atherosclerotic disease. No aneurysm. PELVIC VISCERA: The prostate gland is enlarged and measures 4.3 x 5.2 cm in AP and transverse dimension. OSSEOUS STRUCTURES: Mild anterior subluxation of L4 with respect to L3 and L5 stable. Degenerative changes of the spine and hip joints. No fracture or suspicious bone lesion. CT/CT abdomen pelvis w IV con IMPRESSION: Postsurgical changes to the small bowel. No evidence of bowel wall thickening ,nodule or obstruction. No adenopathy. Diverticulosis of the colon and constipation. Bilateral renal cysts. Small right renal stone. Mild fatty infiltration of the liver. Fleischner guidelines were followed.
[2021-12-21] MEDS: Barium Sulfate Oral (Vanilla) 450 ML ORAL.SUSP 900 ML PO (16:07)
[2021-12-21] MEDS: iohexoL 350 MG/ML 100 ML INFUS..BTL 85 ML IV (16:07)
== END 2021-12-21 13:41 | disposition home or self-care (01) ==
LOC: HO.CT 13:40
PROVIDERS: PCP Internal Medicine; Visit Provider Internal Medicine Medical Oncology
DX: C83.39 Diffuse large B-cell lymphoma, extranodal and solid organ sites (principal)
CPT/HCPCS: 71260; 74177; Q9967

== ENCOUNTER 2022-01-20 11:14 | Outpatient (REF) | payer MEDICARE, SELFPAY ==
--- NOTE | ~2022-01-20 | US_ITS ---
EXAMINATION: US VENOUS WITH DOPPLER UPPER EXTREMITY, RIGHT ARM CLINICAL INFORMATION: Right arm pain. COMPARISON: None TECHNIQUE: Ultrasound of the upper extremity is performed using compression sonography and color and pulse Doppler flow with assessment of augmentation of flow. There is also imaging and Doppler assessment of the jugular and subclavian veins. Spectral analysis with color-flow imaging is performed. FINDINGS: Respiratory variation, normal compression, and augmented flow are noted throughout the upper extremity including the axillary, brachial, cubital, and radial and ulnar veins. There is normal flow in the internal jugular and subclavian veins. There is no visible deep or superficial thrombophlebitis. If the patient's symptoms progress, a followup ultrasound in 5 -7 days might be of value to exclude proximal propagation from a nonvisualized distal arm vein. US/US venous duplex UE RT IMPRESSION: No DVT demonstrated in the right upper extremity
== END 2022-01-20 11:15 | disposition home or self-care (01) ==
LOC: HO.US 11:14
PROVIDERS: PCP Internal Medicine; Visit Provider Internal Medicine Medical Oncology
DX: I82.C19 Acute embolism and thrombosis of unspecified internal jugular vein (principal); M79.601 Pain in right arm
CPT/HCPCS: 93971

== ENCOUNTER 2022-02-13 08:17 | Outpatient (REF) | payer MEDICARE, SELFPAY ==
[2022-02-13 08:31] LABS: MANUAL DIFF FLAG NO
[2022-02-13 09:02] LABS: Appearance Urine Clear; Color Urine Yellow; Glucose Urine UA Negative (Negative); Leukocyte Esterase Urine Negative (Negative); Nitrite Urine Negative (Negative); PH 6.5 (5.0-9.0); Specific Gravity - Urine 1.025 (1.005-1.025); Urine Blood Negative (Negative); Urine Ketones Negative (Negative); Urine Protein Negative (Neg-Trace)
[2022-02-13 09:02] LABS: Basophils Percent Auto 0.6 % (0-2); Eosinophils Absolute Auto 0.6 X10*3/uL (0.0-0.4); Eosinophils Percent Auto 9.3 % (0-4); Hematocrit 45.4 % (42.0-52.0); Hemoglobin 15.4 g/dl (14.0-18.0); Imm Gran Abs Auto 0.02 X10*3/uL (0.00-0.03); Imm Gran Pct Auto 0.3 % (0.0-0.4); Lymphocytes Absolute Auto 1.4 X10*3/uL (1.2-4.9); Mean Corpuscular HGB Conc 33.9 g/dl (31.0-36.0); Mean Corpuscular Hemoglobin 32.7 pg (27.0-33.0); Mean Corpuscular Volume 96.4 fL (80.0-98.0); Mean Platelet Volume 9.3 fL (9.4-12.4); Monocytes Absolute Auto 0.6 X10*3/uL (0.1-1.2); Monocytes Percent Auto 9.2 % (2-11); Neutrophils Percent Auto 59.6 % (45-73); Platelet Count 207 X10*3/uL (160-400); Red Blood Count 4.71 X10*6/uL (4.60-5.80); Red Cell Distribution Width 13.1 % (11.0-16.0); White Blood Count 6.8 X10*3/uL (4.8-10.8)
[2022-02-13 09:34] LABS: Estimated Average Glucose 105 mg/dL; Hemoglobin A1c % 5.3 %
[2022-02-13 09:39] LABS: Alanine Aminotransferase 24 U/L (0-40); Albumin Level 3.9 g/dL (3.5-5.0); Alkaline Phosphatase 90 U/L (39-117); Anion Gap 14 (12-20); Aspartate Amino Transferase 18 U/L (5-37); Bilirubin Total 0.4 mg/dL (0.0-1.0); Blood Urea Nitrogen 18 mg/dL (9-16); Calcium 9.4 mg/dL (8.4-10.2); Carbon Dioxide 25 mmol/L (22-29); Chloride 107 mmol/L (96-108); Cholesterol 175 mg/dL; Estimated Glomerular Filt Rate > 60; Glucose Fasting 108 mg/dL (60-99); HDL Cholesterol 46 mg/dL; LDL Cholesterol Calculated 114 mg/dl; Lactate Dehydrogenase 161 U/L (118-273); Potassium 4.4 mmol/L (3.3-5.1); Sodium 142 mmol/L (135-145); Total Protein 6.5 g/dL (6.5-8.0); Triglycerides 75 mg/dL
[2022-02-13 10:29] LABS: Vitamin D 25-OH Total 45.7 ng/mL (>30)
== END 2022-02-13 08:18 | disposition home or self-care (01) ==
LOC: HO.LAB 08:17
PROVIDERS: PCP Internal Medicine; Visit Provider Internal Medicine
DX: I10 Essential (primary) hypertension (principal); E78.00 Pure hypercholesterolemia, unspecified; E55.9 Vitamin D deficiency, unspecified; R73.01 Impaired fasting glucose; C83.39 Diffuse large B-cell lymphoma, extranodal and solid organ sites
CPT/HCPCS: 36415; 80053; 80061; 81003; 82306; 83036; 83615; 84443; 85025

== ENCOUNTER 2022-06-14 08:42 | Outpatient (REF) | payer MEDICARE, SELFPAY ==
[2022-06-14 10:25] LABS: Alanine Aminotransferase 26 U/L (0-40); Albumin Level 3.9 g/dL (3.5-5.0); Alkaline Phosphatase 99 U/L (39-117); Anion Gap 11 (12-20); Aspartate Amino Transferase 22 U/L (5-37); Bilirubin Total 0.4 mg/dL (0.0-1.0); Blood Urea Nitrogen 16 mg/dL (9-16); Carbon Dioxide 27 mmol/L (22-29); Chloride 108 mmol/L (96-108); Cholesterol 165 mg/dL; Estimated Glomerular Filt Rate > 60; Glucose Fasting 105 mg/dL (60-99); HDL Cholesterol 42 mg/dL; LDL Cholesterol Calculated 112 mg/dl; Sodium 142 mmol/L (135-145); Total Protein 6.4 g/dL (6.5-8.0); Triglycerides 55 mg/dL
== END 2022-06-14 08:43 | disposition home or self-care (01) ==
LOC: HO.LAB 08:42
PROVIDERS: PCP Internal Medicine; Visit Provider Internal Medicine
DX: E78.00 Pure hypercholesterolemia, unspecified (principal)
CPT/HCPCS: 36415; 80053; 80061

== ENCOUNTER 2022-09-22 07:52 | Outpatient (REF) | payer MEDICARE, SELFPAY ==
--- NOTE | ~2022-09-22 | CT_ITS ---
EXAMINATION: CT CHEST WITH CONTRAST CT ABDOMEN AND PELVIS WITH CONTRAST CLINICAL INFORMATION: Follow-up on pulmonary nodules. 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 COMPARISON: CT of chest, abdomen and pelvis 12/21/2021. CT chest 01/18/2021. TECHNIQUE: Multidetector volumetric imaging was performed from the thoracic inlet through the pubic symphysis following administration of 85 mL of Omnipaque-350. Sagittal and coronal reformatted images were obtained on the technologist's workstation. This CT examination was performed using dose optimization techniques as appropriate, variously including the following: *Automated exposure control *Adjustment of mA and/or kV according to patient size (this includes techniques or standardized protocols for targeted exams where dose is matched to indication/reason for exam; i.e. extremities or head) *Use of iterative reconstruction technique DLP: 217 mGy-cm FINDINGS: CHEST: Lungs: Again seen are changes of mild emphysema. At the time of the prior 12/21/2021 study, 2 new lung nodules were seen compared with a study from 01/18/2021. These remain present and are unchanged. Again seen is a 6 mm left upper lobe peripheral subpleural nodule adjacent to the left heart border which is unchanged (5:333 compare prior 5:294). The previously seen 3 mm right lower lobe nodule is also unchanged (5:347 compare prior 5:322). No new or suspicious lung nodules are seen. Mediastinum: Some small thyroid nodules are present which are unchanged and need no follow-up. No mediastinal or hilar lymphadenopathy. Heart size normal. No aortic aneurysm is seen. Coronary calcifications are noted. Pericardium/Pleura: No significant effusion. No pleural mass or thickening. Chest Wall/Axilla: Unremarkable. ABDOMEN/PELVIS: Peritoneal Space: No significant free air or free fluid identified. Liver, Gallbladder, Biliary Tree: The liver is normal in size, shape, and attenuation. No focal hepatic lesion or biliary ductal dilatation is present. The gallbladder is unremarkable with no evidence of radiopaque gallstones, gallbladder wall thickening, or obvious pericholecystic inflammatory changes. Pancreas: Unremarkable. Spleen: Unremarkable. Adrenal Glands: Unremarkable. Kidneys and Ureters: The kidneys are normal in size, shape, and attenuation. There is a 3 mm nonobstructing right renal calculus. Multiple benign Bosniak class I renal cysts are noted, the largest measuring 2.2 cm in the right upper pole, which require no additional imaging or follow-up. No solid renal masses are seen. No hydronephrosis, hydroureter, or calculi seen. No perinephric stranding. Bladder: Unremarkable. Gastrointestinal Tract: Again seen is colonic diverticulosis, predominantly in the sigmoid without evidence of diverticulitis. Small bowel anastomosis is again noted in the right midabdomen (4:40) without evidence of obstruction. The small and large bowel are otherwise unremarkable. The appendix is unremarkable. Abdominal Wall: No significant hernia is appreciated. Again seen is a tiny fat-containing umbilical hernia along with a tiny fat-containing left inguinal hernia. Lymph Nodes: No lymphadenopathy. Vascular: The aorta has some mild calcified plaque without aneurysm. The IVC appears unremarkable. PELVIC VISCERA: There is mild BPH. Seminal vesicles appear normal. OSSEUS STRUCTURES: Mild degenerative changes are noted in the spine. No bony destructive lesions are seen. CT/CT abdomen pelvis w IV con IMPRESSION: 1. No evidence of recurrent lymphoma in the chest, abdomen or pelvis. 2. Incidental note made of emphysema, nonobstructing right renal calculus, colonic diverticulosis without diverticulitis, small bowel anastomosis without obstruction, and mild BPH. 3. The previously seen 2 new lung nodules first seen on the 12/21/2021 study remain present and are unchanged. Fleischner guidelines were followed.
[2022-09-22] MEDS: iohexoL 350 MG/ML 100 ML INFUS..BTL IV (10:47)
[2022-09-22] MEDS: Barium Sulfate Oral (Vanilla) 450 ML ORAL.SUSP 900 ML PO (10:48)
== END 2022-09-22 07:53 | disposition home or self-care (01) ==
LOC: HO.CT 07:52
PROVIDERS: PCP Internal Medicine; Visit Provider Internal Medicine Medical Oncology
DX: C83.39 Diffuse large B-cell lymphoma, extranodal and solid organ sites (principal)
CPT/HCPCS: 71260; 74177; Q9967

== ENCOUNTER 2022-10-27 13:37 | Outpatient (AMB) | payer MEDICARE, SELFPAY ==
[2022-10-27 13:40] VITALS: BP 122/80; PULSE 86; O2SAT 96; BMI 29.2
--- NOTE | 2022-10-27 13:40 | A.OFFPC_ITS ---
Vital Signs 10/27/22 13:40 Height 5 ft 10 in Weight 203 lb 6 oz BMI 29.2 BP 122/80 Blood Pressure Location Lt brachial Position Sitting Pulse 86 Pulse Source Pulse Oximeter Pulse Oximetry (%) 96 Oxygen Delivery Method Room Air Intake Visit Reasons: hyperlipidemia, lymphoma, CAD Assistant Production Editor Required: No Accompanied by: Self / Same As Patient Allergies No Known Allergies Allergy (Verified 10/27/22 14:11) Medication List - Last Reconciled 10/27/22 by Zachery Rios MD atorvastatin 80 mg PO .1/2 TABLET DAILY baclofen 20 mg PO BID PRN MDD 40 bupropion HCl (smoking deter) 150 mg PO DAILY lisinopril 5 mg PO DAILY multivitamin 1 tab PO DAILY polyethylene glycol 3350 (Gavilax) 17 grams PO DAILY 30 days Tobacco use date assessed: 10/27/22 Fall risk assessment: No Falls in past year Last assessed Fall Risk: 10/27/22 Dental Screening Dental Screen Date: 10/27/22 Did you have a dental visit in the last 12 months?: Yes Did you have a dental problem in the last 6 months where you did not have access to dental care?: No Was dental information given to patient?: Patient has dentist HPI hyperlipidemia, lymphoma, CAD HPI Details Patient comes in today for his follow up visit States that he feels okay He denies any headaches or dizziness Denies any chest pains, no shortness of breath No nausea/vomiting, no abdominal pain No change in bowel habits noted Did not get his follow-up labs done recently but states that he is of Dr. 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 Onycholysis of toenail Overweight (BMI 25.0-29.9) Pure hypercholesterolemia SBO (small bowel obstruction) Skin cancer, basal cell Small bowel tumor Smoker Squamous cell carcinoma of scalp Urinary frequency Surgical History H/O colonoscopy History of eye surgery History of melanoma excision Hx of tooth extraction Status post small bowel resection (~09/14/20) Family History Father Cancer Mother Cancer Brother Colon cancer Social History Household Members: None Housing: House Are you a primary director long term care to a significant other at home: No Do you presently have visiting nurse or other home services: No Alcohol intake: former Patient Tobacco Use Status: Current someday Tobacco user Tobacco use type: Cigarette Cigarettes Per Day: 6 Years Smoked: 60 e-Cigarette/Vaping Use: Never Used Second Hand Smoke Exposure: No Advance Directives Date on File: 08/17/20 service: Yes Current occupational status: retired Cognitive needs: No Hearing needs: No Vision needs: No Questionnaire PHQ-9 Over the last 2 weeks, how often have you been bothered by any of the following problems? 1. Little interest or pleasure in doing things: not at all 2. Feeling down, depressed, or hopeless: not at all 3. Trouble falling or staying asleep, or sleeping too much: not at all 4. Feeling tired or having little energy: not at all 5. Poor appetite or overeating: not at all 6. Feeling bad about yourself - or that you are a failure or have let yourself or your family down: not at all 7. Trouble concentrating on things, such as reading the newspaper or watching television: not at all 8. Moving or speaking so slowly that other people could have noticed. Or the opposite - being so fidgety or restless that you have been moving around a lot more than usual: not at all 9. Thoughts that you would be better off or of hurting yourself in some way: not at all Total score: 0 Depression Screening Interpretation: Negative [id number] - PHQ-9 Billing: Yes Source: Developed by Drs. Kentrell Lua, Kathryn Blackwell, Hesham Thomas and colleagues, with an educational adair from [employer]. Thrive Questionnaire Date Thrive assessed: 10/27/22 I am a: Patient What is your living situation today?: I have a steady place to live Within the past 12 months, did the food you bought not last and you didn't have the money to get more?: Never true Within the past 12 months, did you worry whether your food would run out before you got money to buy more?: Never true Do you have trouble paying for medicines?: No Do you have trouble getting transportation to medical appointments?: No Do you have trouble paying your heating and electricity bill?: No Do you have trouble taking care of your child, family member or friend?: No Do you have trouble with day-to-day activities such as bathing, preparing meals, shopping, managing finances, etc.?: No Are you currently unemployed and looking for a job?: No Are you interested in more education?: No Please select the resources that you would like help with: None Currently or been in a relationship where the following occur: no concerns reported AUDIT C Alcohol Use Questionnaire (AUDIT-C) 1. How often do you have a drink containing alcohol?: Never 3. How often do you have six or more drinks on one occasion?: Never Total Score: 0 Score Reviewed/Action Taken: Yes ADALI-7 AMB Questionnaire ADALI-7 Date ADALI - 7 assessed: 10/27/22 Feeling nervous, anxious, or on edge: 0 = Not at all Not being able to stop or control worryin = Not at all Worrying too much about different things: 0 = Not at all Trouble relaxin = Not at all Being so restless that it is hard to sit still: 0 = Not at all Becoming easily annoyed or irritable: 0 = Not at all Feeling afraid as if something awful might happen: 0 = Not at all Total ADALI-7 score (0-4 normal; 5-9 mild; 10-14 moderate; 15-21 severe): 0 Source: Developed by Drs. Kentrell Lua, Kathryn Blackwell, Hesham Thomas and colleagues, with an educational adair from [employer]. Review of Systems Const Denies fatigue, Denies fever(s) and Denies headache(s) ENT Denies dysphagia, Denies dizziness, Denies otalgia, Denies headache(s) and Denies sore throat Card Denies chest pain, Denies palpitations and Denies dyspnea Resp Denies cough and Denies dyspnea GI Denies abdominal pain, Denies constipation, Denies dysphagia, Denies heartburn, Denies diarrhea, Denies nausea and Denies vomiting Denies dysuria, Reports nocturia and Reports urinary frequency Neuro Denies dizziness and Denies headache(s) Endo Denies fatigue and Denies palpitations Physical exam (Primary Care) Vital Signs: Last Vital Signs Pulse 86 10/27/22 13:40 BP 122/80 10/27/22 13:40 Pulse Ox 96 10/27/22 13:40 Oxygen Delivery Method Room Air 10/27/22 13:40 BMI result Body Mass Index 29.2 Tobacco/Smoking Status: Tobacco use Status Tobacco use date assessed 10/27/22 10/27/22 13:47 Patient Tobacco Use Status Current someday Tobacco 10/27/22 13:47 Tobacco use type Cigarette 10/27/22 13:47 e-Cigarette/Vaping Use Never Used 10/27/22 13:47 PHQ-9: PHQ-9 Score PHQ-9: Total score 0 10/27/22 14:12 Depression Screening Interpretation: Negative Thrive Assessment: Date of Thrive Assessment Date Thrive assessed 10/27/22 10/27/22 13:47 Currently or been in a relationship where the following occur: no concerns reported Const General: no acute distress and alert HENMT Ears: TM's normal bilaterally and EAC's normal Throat: Yes posterior oropharynx normal and Yes tonsils normal (no TP congestion noted) Neck Neck: Yes no lymphadenopathy and Yes supple Resp Auscultation: clear to auscultation bilaterally, no rales and no wheezes Cardio Rate: regular rate Rhythm: regular rhythm Heart sounds: no murmurs GI Palpation (GI): Soft to palpation, nontender and no guarding Auscultation: normal bowel sounds Extrem General: Yes no clubbing, cyanosis or edema Results Reviewed Results Reviewed: Laboratory Tests 08/25/22 08/25/22 13:23 13:23 WBC 8.1 Hgb 15.8 Hct 46.0 Plt Count 197 Sodium 143 Potassium 4.2 Creatinine 1.11 Estimated GFR > 60 Random Glucose 126 H Calcium 9.7 D AST 23 ALT 27 Lactate Dehydrogenase 188 Assessment and Plan Assessment & Plan (1) 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: Code(s): C83.39 - Diffuse large B-cell lymphoma, extranodal and solid organ sites Plan: S/P laparoscopic small bowel resection on 09/14/20 - pathology reportedly came out as?non-Hodgkin's B-cell lymphoma Completed chemotherapy with R-CHOP and had Port-a-cath eventually removed Was last seen by Oncology for follow-up a couple of months ago and patient currently remains in remission Follow up with oncology as scheduled for continuing surveillance (2) Internal jugular vein thrombosis: Code(s): I82.C19 - Acute embolism and thrombosis of unspecified internal jugular vein Qualifiers: Laterality: right Qualified Code(s): I82.C11 - Acute embolism and thrombosis of right internal jugular vein Plan: Venous doppler done following tunneled port removal revealed the persistence of a thrombus in the right IJ Continue Apixaban 5 mg BID (3) Benign essential hypertension: Code(s): I10 - Essential (primary) hypertension Plan: Reinforced low sodium diet - goal is systolic BP of at least 140 mm or less Continue Lisinopril 5 mg QD Echocardiogram done back on 01/18/2021 came out normal - LV systolic function is low normal, EF is between 50-55% (4) Pure hypercholesterolemia: Code(s): E78.00 - Pure hypercholesterolemia, unspecified Plan: Results of his labs done a couple of months ago reviewed and discussed with patient although these were nonfasting labs and did not include a fasting lipid profile Reinforced low cholesterol diet Continue Atorvastatin 80 mg 1/2 tablet daily Will have patient recheck labs in 4 months for follow up (5) Impaired fasting glucose: Code(s): R73.01 - Impaired fasting glucose Plan: HgbA1c was again normal at 5.3% when checked previously Reinforced low calorie diet/exercise as tolerated (6) Anxiety: Code(s): F41.9 - Anxiety disorder, unspecified Plan: Continue Lorazepam 0.5 mg QD PRN and Bupropion 150 mg QD (7) Smoker: Code(s): F17.200 - Nicotine dependence, unspecified, uncomplicated Plan: Counseled again on smoking cessation (8) Overweight (BMI 25.0-29.9): Code(s): E66.3 - Overweight Plan: Reinforced diet/exercise as tolerated/lose weight Plan Follow up in 4 months Orders: Orders Comprehensive [place]. Panel Fast 4 Months E78.00 - Pure hypercholesterolemia, unspecified Hemoglobin A1c 4 Months R73.01 - Impaired fasting glucose Lipid Panel 4 Months E78.00 - Pure hypercholesterolemia, unspecified Testosterone, Free/Total 4 Months R53.83 - Other fatigue, R79.89 - Other specified abnormal findings of blood chemistry TSH reflex Free T4 4 Months E78.00 - Pure hypercholesterolemia, unspecified Vitamin D 25-OH Total 4 Months E55.9 - Vitamin D deficiency, unspecified Complete Blood Count Auto Diff 4 Months I10 - Essential (primary) hypertension UA CC w/rflx Micro + Cult 4 Months R30.0 - Dysuria Coding Level of Care Code Est Pt Level 4 (41006) Diagnoses 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
== END 2022-10-27 14:16 | disposition home or self-care (01) ==
PROVIDERS: Visit Provider Internal Medicine
DX: I10 Essential (primary) hypertension (principal); C83.39 Diffuse large B-cell lymphoma, extranodal and solid organ sites; I82.C11 Acute embolism and thrombosis of right internal jugular vein; F41.9 Anxiety disorder, unspecified; F17.200 Nicotine dependence, unspecified, uncomplicated; E78.00 Pure hypercholesterolemia, unspecified; R73.01 Impaired fasting glucose; E66.3 Overweight
CPT/HCPCS: 99214

== ENCOUNTER 2023-02-26 13:40 | Outpatient (REF) | payer MEDICARE, SELFPAY ==
[2023-02-26 13:59] LABS: MANUAL DIFF FLAG NO
[2023-02-26 14:24] LABS: Basophils Absolute Auto 0.1 X10*3/uL (0.0-0.2); Basophils Percent Auto 0.7 % (0-2); Eosinophils Absolute Auto 0.5 X10*3/uL (0.0-0.4); Eosinophils Percent Auto 5.9 % (0-4); Hematocrit 47.8 % (42.0-52.0); Hemoglobin 16.4 g/dl (14.0-18.0); Imm Gran Abs Auto 0.03 X10*3/uL (0.00-0.03); Imm Gran Pct Auto 0.4 % (0.0-0.4); Lymphocytes Absolute Auto 1.7 X10*3/uL (1.2-4.9); Mean Corpuscular HGB Conc 34.3 g/dl (31.0-36.0); Mean Corpuscular Hemoglobin 33.2 pg (27.0-33.0); Mean Corpuscular Volume 96.8 fL (80.0-98.0); Mean Platelet Volume 10.5 fL (9.4-12.4); Monocytes Absolute Auto 0.8 X10*3/uL (0.1-1.2); Monocytes Percent Auto 10.1 % (2-11); Neutrophils Absolute Auto 5.2 x10*3/uL (2.0-8.3); Neutrophils Percent Auto 62.9 % (45-73); Platelet Count 189 X10*3/uL (160-400); Red Blood Count 4.94 X10*6/uL (4.60-5.80); Red Cell Distribution Width 13.2 % (11.0-16.0); White Blood Count 8.3 X10*3/uL (4.8-10.8)
[2023-02-26 14:36] LABS: Estimated Average Glucose 108 mg/dL; Hemoglobin A1c % 5.4 % (<6.0)
[2023-02-26 14:45] LABS: Alanine Aminotransferase 25 U/L (0-40); Alkaline Phosphatase 99 U/L (39-117); Anion Gap 10 (12-20); Aspartate Amino Transferase 21 U/L (5-37); Bilirubin Total 0.5 mg/dL (0.0-1.0); Blood Urea Nitrogen 16 mg/dL (9-16); Calcium 9.7 mg/dL (8.4-10.2); Carbon Dioxide 27 mmol/L (22-29); Chloride 108 mmol/L (96-108); Cholesterol 170 mg/dL (<200); Estimated Glomerular Filt Rate > 60; Glucose Fasting 89 mg/dL (60-99); Glucose Random 90 mg/dL (60-115); HDL Cholesterol 44 mg/dL (>40); LDL Cholesterol Calculated 101 mg/dL (<100); Lactate Dehydrogenase 186 U/L (118-273); Potassium 4.4 mmol/L (3.3-5.1); Sodium 141 mmol/L (135-145); Total Protein 7.1 g/dL (6.5-8.0); Triglycerides 129 mg/dL (<150)
[2023-02-26 14:57] LABS: TSH reflex Free T4 1.03 uIU/mL (0.32-4.0); Vitamin D 25-OH Total 33.1 ng/mL (>30)
[2023-02-26 15:04] LABS: Appearance Urine Clear; Color Urine Yellow; Glucose Urine UA Negative (Negative); Leukocyte Esterase Urine Negative (Negative); Nitrite Urine Negative (Negative); PH 6.5 (5.0-9.0); Urine Blood Negative (Negative); Urine Ketones Negative (Negative); Urine Protein Trace mg/dL (Neg-Trace)
[2023-03-02 19:08] LABS: Testosterone, Free 76.3 pg/mL (30.0-135.0); Testosterone, Total 658 ng/dL (250-1100)
== END 2023-02-26 13:41 | disposition home or self-care (01) ==
LOC: HO.LAB 13:40
PROVIDERS: Internal Medicine Medical Oncology; PCP Internal Medicine; Visit Provider Internal Medicine
DX: E55.9 Vitamin D deficiency, unspecified (principal); R30.0 Dysuria; E78.00 Pure hypercholesterolemia, unspecified; R73.01 Impaired fasting glucose; I10 Essential (primary) hypertension; C83.39 Diffuse large B-cell lymphoma, extranodal and solid organ sites; R79.89 Other specified abnormal findings of blood chemistry; R53.83 Other fatigue
CPT/HCPCS: 36415; 80053; 80061; 81003; 82306; 83036; 83615; 84402; 84403; 84443; 85025

== ENCOUNTER 2023-03-02 13:08 | Outpatient (AMB) | payer MEDICARE, SELFPAY ==
[2023-03-02 13:26] VITALS: BP 136/82; PULSE 95; O2SAT 98; BMI 29.9
--- NOTE | 2023-03-02 13:26 | MHC.PC.OV ---
Vital Signs 03/02/23 13:26 Height 5 ft 10 in Weight 208 lb 2 oz BMI 29.9 BP 136/82 Blood Pressure Location Lt brachial Position Sitting Pulse 95 Pulse Source Pulse Oximeter Pulse Oximetry (%) 98 Oxygen Delivery Method Room Air Intake Visit Reasons: lymphoma, hyperlipidemia, IFG, HTN Sketch Liner Required: No Accompanied by: Self / Same As Patient Allergies No Known Allergies Allergy (Verified 03/02/23 14:10) Medication List - Last Reconciled 03/02/23 by Zachery Rios MD aspirin 81 mg PO DAILY atorvastatin 80 mg PO .1/2 TABLET DAILY baclofen 20 mg PO BID PRN MDD 40 bupropion HCl (smoking deter) 150 mg PO DAILY lisinopril 5 mg PO DAILY multivitamin 1 tab PO DAILY polyethylene glycol 3350 (Gavilax) 17 grams PO DAILY 30 days Tobacco use date assessed: 10/27/22 Fall risk assessment: No Falls in past year Last assessed Fall Risk: 03/02/23 Dental Screening Dental Screen Date: 03/02/23 Did you have a dental visit in the last 12 months?: Yes Did you have a dental problem in the last 6 months where you did not have access to dental care?: No Was dental information given to patient?: Patient has dentist HPI lymphoma, hyperlipidemia, IFG, HTN HPI Details Patient comes in today for his follow up visit States that he feels okay Just had a recurrent melanoma lesion excised from his nose by [facility] yesterday and he has a follow up appointment with them scheduled for next week He denies any headaches or dizziness Denies any chest pains, no SOB No nausea/vomiting, no abdominal pain No change in bowel habits noted Had his follow up labs done a few days ago - to discuss his results [facility] Medical History Smoker Urinary frequency 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 History of urinary retention Constipation Small bowel tumor SBO (small bowel obstruction) COVID-19 vaccine administered History of diverticulosis Overweight (BMI 25.0-29.9) Anxiety Skin cancer, 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 Lumbar strain Lumbar degenerative disc disease Impaired fasting glucose Benign essential hypertension Pure hypercholesterolemia Surgical History Hx of tooth extraction Status post small bowel resection (~09/14/20) H/O colonoscopy History of melanoma excision History of eye surgery Family History Father Cancer Mother Cancer Brother Colon cancer Social History Household Members: None Housing: House Are you a primary healthcare economics consultant to a significant other at home: No Do you presently have visiting nurse or other home services: No Alcohol intake: former Comment: aware of trip hazard Patient Tobacco Use Status: Current someday Tobacco user Tobacco use type: Cigarette Cigarettes Per Day: 6 Years Smoked: 60 e-Cigarette/Vaping Use: Never Used Second Hand Smoke Exposure: No Advance Directives Date on File: 08/17/20 service: Yes Current occupational status: retired Cognitive needs: No Hearing needs: No Vision needs: No Questionnaire Thrive Questionnaire Date Thrive assessed: 10/27/22 ADALI-7 AMB Questionnaire ADALI-7 Date ADALI - 7 assessed: 10/27/22 Source: Developed by Drs. Kentrell Lua, Kathryn Blackwell, Hesham Thomas and colleagues, with an educational adair from [employer]. Review of Systems Const Denies chills, Denies fatigue, Denies fever(s) and Denies headache(s) ENT Denies dysphagia, Denies dizziness, Denies otalgia, Denies headache(s), Denies odynophagia and Denies sore throat Card Denies chest pain, Denies palpitations and Denies dyspnea Resp Denies cough and Denies dyspnea GI Denies abdominal pain, Denies constipation, Denies dysphagia, Denies heartburn, Denies diarrhea, Denies nausea, Denies odynophagia and Denies vomiting Denies dysuria, Reports nocturia and Reports urinary frequency Musc Denies back pain and Denies arthralgias Skin/Breast Denies rash Neuro Denies dizziness and Denies headache(s) Endo Denies fatigue and Denies palpitations Physical exam (Primary Care) Vital Signs: Last Vital Signs Pulse 95 03/02/23 13:26 BP 136/82 03/02/23 13:26 Pulse Ox 98 03/02/23 13:26 Oxygen Delivery Method Room Air 03/02/23 13:26 BMI result Body Mass Index 29.9 Tobacco/Smoking Status: Tobacco use Status Tobacco use date assessed 10/27/22 03/02/23 13:31 Patient Tobacco Use Status Current someday Tobacco 03/02/23 13:31 Tobacco use type Cigarette 03/02/23 13:31 e-Cigarette/Vaping Use Never Used 03/02/23 13:31 Thrive Assessment: Date of Thrive Assessment Date Thrive assessed 10/27/22 03/02/23 13:31 Const General: no acute distress and alert HENMT Ears: TM's normal bilaterally and EAC's normal Throat: Yes posterior oropharynx normal and Yes tonsils normal (no TP congestion noted) Neck Neck: Yes no lymphadenopathy and Yes supple Resp Auscultation: clear to auscultation bilaterally, no rales and no wheezes Cardio Rate: regular rate Rhythm: regular rhythm Heart sounds: no murmurs GI Palpation (GI): Soft to palpation and nontender Auscultation: normal bowel sounds Extrem General: Yes no clubbing, cyanosis or edema Results Reviewed Results Reviewed: Laboratory Tests 02/26/23 02/26/23 13:56 13:57 WBC 8.3 Hgb 16.4 Hct 47.8 Plt Count 189 Sodium 141 Potassium 4.4 Creatinine 1.01 Estimated GFR > 60 Fasting Glucose 89 Hemoglobin A1c % 5.4 Calcium 9.7 AST 21 ALT 25 Triglycerides 129 Cholesterol 170 LDL Cholesterol, Calc 101 H HDL Cholesterol 44 25-OH Vitamin D Total 33.1 TSH 1.03 Ur Specific [place] 1.020 Urine Protein Trace Urine Glucose (UA) Negative Urine Blood Negative Assessment and Plan Assessment & Plan (1) 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: Code(s): C83.39 - Diffuse large B-cell lymphoma, extranodal and solid organ sites Plan: S/P laparoscopic small bowel resection on 09/14/20 - pathology reportedly came out as?non-Hodgkin's B-cell lymphoma Completed chemotherapy with R-CHOP and had Port-a-cath eventually removed (Tx from 11/02/2020 to 02/15/2021) He was last seen by Oncology for follow-up a few days ago and patient currently remains in remission Follow up with oncology as scheduled for continuing surveillance (2) Internal jugular vein thrombosis: Code(s): I82.C19 - Acute embolism and thrombosis of unspecified internal jugular vein Qualifiers: Laterality: right Qualified Code(s): I82.C11 - Acute embolism and thrombosis of right internal jugular vein Plan: Venous doppler done following tunneled port removal revealed the persistence of a thrombus in the right IJ Right upper extremity US last done in December 2021 revealed NO DVT He has been taken off Apixaban 5 mg BID and currently remains on low dose Aspirin 81 mg QD (3) Benign essential hypertension: Code(s): I10 - Essential (primary) hypertension Plan: Reinforced low sodium diet - goal is systolic BP of at least 140 mm or less Continue Lisinopril 5 mg QD Echocardiogram done back on 01/18/2021 came out normal - LV systolic function is low normal, EF is between 50-55% (4) Pure hypercholesterolemia: Code(s): E78.00 - Pure hypercholesterolemia, unspecified Plan: Results of his labs done a few days ago reviewed and discussed with patient Reinforced low cholesterol diet Continue Atorvastatin 80 mg 1/2 tablet QD Will have patient recheck his labs and fasting lipids in 4 months for follow up (5) Impaired fasting glucose: Code(s): R73.01 - Impaired fasting glucose Plan: HgbA1c was again normal at 5.4% on his labs done a few days ago Reinforced low calorie diet/exercise as tolerated (6) Recurrent skin melanoma: Code(s): C43.9 - Malignant melanoma of skin, unspecified Plan: S/P excisional surgery on the nose with [facility] yesterday Follow up with [facility] as scheduled next week (7) Anxiety: Code(s): F41.9 - Anxiety disorder, unspecified Plan: Continue Lorazepam 0.5 mg QD PRN and Bupropion 150 mg QD (8) Smoker: Code(s): F17.200 - Nicotine dependence, unspecified, uncomplicated Plan: Counseled again on smoking cessation (9) Overweight (BMI 25.0-29.9): Code(s): E66.3 - Overweight Plan: Reinforced diet/exercise as tolerated/lose weight Plan Follow up in 4 months Orders: Orders Comprehensive [place]. 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
== END 2023-03-02 14:10 | disposition home or self-care (01) ==
PROVIDERS: PCP Internal Medicine; Visit Provider Internal Medicine
DX: I82.C11 Acute embolism and thrombosis of right internal jugular vein (principal); C83.39 Diffuse large B-cell lymphoma, extranodal and solid organ sites; C43.9 Malignant melanoma of skin, unspecified; I10 Essential (primary) hypertension; E78.00 Pure hypercholesterolemia, unspecified; R73.01 Impaired fasting glucose; F41.9 Anxiety disorder, unspecified; F17.210 Nicotine dependence, cigarettes, uncomplicated; E66.3 Overweight
CPT/HCPCS: 99214

== ENCOUNTER 2023-07-03 08:45 | Outpatient (REF) | payer MEDICARE, SELFPAY ==
[2023-07-03 09:04] LABS: MANUAL DIFF FLAG NO
[2023-07-03 09:16] LABS: Basophils Absolute Auto 0.1 X10*3/uL (0.0-0.2); Basophils Percent Auto 0.7 % (0-2); Eosinophils Absolute Auto 0.7 X10*3/uL (0.0-0.4); Eosinophils Percent Auto 9.7 % (0-4); Hematocrit 45.3 % (42.0-52.0); Hemoglobin 15.7 g/dl (14.0-18.0); Imm Gran Abs Auto 0.02 X10*3/uL (0.00-0.03); Imm Gran Pct Auto 0.3 % (0.0-0.4); Lymphocytes Absolute Auto 1.7 X10*3/uL (1.2-4.9); Lymphocytes Percent Auto 23.8 % (20-40); Mean Corpuscular HGB Conc 34.7 g/dl (31.0-36.0); Mean Corpuscular Hemoglobin 33.1 pg (27.0-33.0); Mean Corpuscular Volume 95.6 fL (80.0-98.0); Mean Platelet Volume 9.1 fL (9.4-12.4); Monocytes Absolute Auto 0.6 X10*3/uL (0.1-1.2); Monocytes Percent Auto 8.8 % (2-11); Neutrophils Absolute Auto 4.1 x10*3/uL (2.0-8.3); Neutrophils Percent Auto 56.7 % (45-73); Platelet Count 175 X10*3/uL (160-400); Red Blood Count 4.74 X10*6/uL (4.60-5.80); Red Cell Distribution Width 12.8 % (11.0-16.0); White Blood Count 7.2 X10*3/uL (4.8-10.8)
[2023-07-03 09:50] LABS: Alanine Aminotransferase 30 U/L (0-40); Albumin Level 3.8 g/dL (3.5-5.0); Alkaline Phosphatase 88 U/L (39-117); Anion Gap 11 (12-20); Aspartate Amino Transferase 22 U/L (5-37); Bilirubin Total 0.5 mg/dL (0.0-1.0); Blood Urea Nitrogen 16 mg/dL (9-16); Carbon Dioxide 25 mmol/L (22-29); Chloride 109 mmol/L (96-108); Cholesterol 144 mg/dL (<200); Estimated Glomerular Filt Rate > 60; Glucose Fasting 106 mg/dL (60-99); HDL Cholesterol 44 mg/dL (>40); LDL Cholesterol Calculated 89 mg/dL (<100); Potassium 3.7 mmol/L (3.3-5.1); Sodium 141 mmol/L (135-145); Total Protein 6.7 g/dL (6.5-8.0); Triglycerides 57 mg/dL (<150)
[2023-07-03 10:01] LABS: PSA,Total (Free>4and<10) 1.31 ng/mL (0.00-4.00)
[2023-07-03 10:07] LABS: Estimated Average Glucose 105 mg/dL; Hemoglobin A1c % 5.3 % (<6.0)
[2023-07-03 10:08] LABS: TSH reflex Free T4 1.21 uIU/mL (0.32-4.0); Vitamin D 25-OH Total 25.8 ng/mL (>30)
[2023-07-03 10:15] LABS: Appearance Urine Clear; Color Urine Yellow; Glucose Urine UA Negative (Negative); Leukocyte Esterase Urine Negative (Negative); Nitrite Urine Negative (Negative); PH 6.5 (5.0-9.0); Urine Blood Negative (Negative); Urine Ketones Negative (Negative); Urine Protein Trace mg/dL (Neg-Trace)
== END 2023-07-03 08:46 | disposition home or self-care (01) ==
LOC: HO.LAB 08:45
PROVIDERS: PCP Internal Medicine; Visit Provider Internal Medicine
DX: I10 Essential (primary) hypertension (principal); E11.9 Type 2 diabetes mellitus without complications; N40.0 Benign prostatic hyperplasia without lower urinary tract symptoms; R35.0 Frequency of micturition; R30.0 Dysuria; E78.00 Pure hypercholesterolemia, unspecified; E55.9 Vitamin D deficiency, unspecified; Z12.5 Encounter for screening for malignant neoplasm of prostate
CPT/HCPCS: 36415; 80053; 80061; 81003; 82306; 83036; 84153; 84443; 85025

== ENCOUNTER 2023-07-05 09:45 | Outpatient (AMB) | payer MEDICARE, SELFPAY ==
[2023-07-05 09:46] VITALS: BP 112/74; PULSE 90; O2SAT 96; BMI 30.4
--- NOTE | 2023-07-05 09:46 | A.OFFPC_ITS ---
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: Not Required per policy Accompanied by: Self / Same As Patient Allergies No Known Allergies Allergy (Verified 11/05/23 14:22) Medication List - Last Reconciled 11/06/23 by Zachery Rios MD aspirin 81 mg PO DAILY atorvastatin 80 mg PO .1/2 TABLET DAILY baclofen 20 mg PO BID PRN MDD 40 bupropion HCl (smoking deter) 150 mg PO DAILY lisinopril 5 mg PO DAILY multivitamin 1 tab PO DAILY polyethylene glycol 3350 (Gavilax) 17 grams PO DAILY 30 days Tobacco use date assessed: 07/05/23 Fall risk assessment: No Falls in past year Last assessed Fall Risk: 07/05/23 Dental Screening Dental Screen Date: 07/05/23 Did you have a dental visit in the last 12 months?: Yes Did you have a dental problem in the last 6 months where you did not have access to dental care?: No Was dental information given to patient?: Patient has dentist HPI 4 month f/u HPI Details Patient comes in today for his follow up visit States that he feels okay He denies any headaches or dizziness Denies any chest pains, no SOB No nausea/vomiting, no abdominal pain No change in bowel habits noted He had his follow up labs done a couple of days ago - to discuss his results [facility] Medical History Smoker Urinary frequency 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 History of urinary retention Constipation Small bowel tumor SBO (small bowel obstruction) COVID-19 vaccine administered History of diverticulosis Overweight (BMI 25.0-29.9) Anxiety Skin cancer, 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 Lumbar strain Lumbar degenerative disc disease Impaired fasting glucose Benign essential hypertension Pure hypercholesterolemia Surgical History Hx of tooth extraction Status post small bowel resection (~09/14/20) H/O colonoscopy History of melanoma excision History of eye surgery Family History Father Cancer Mother Cancer Brother Colon cancer Social History Household Members: None Housing: House Are you a primary careers counsellor to a significant other at home: No Do you presently have visiting nurse or other home services: No Alcohol intake: former Comment: aware of trip hazard Patient Tobacco Use Status: Current someday Tobacco user Tobacco use type: Cigarette Cigarettes Per Day: 3 Years Smoked: 60 e-Cigarette/Vaping Use: Never Used Second Hand Smoke Exposure: Yes Advance Directives Date on File: 08/17/20 service: Yes Current occupational status: retired Cognitive needs: No Hearing needs: No Vision needs: No Questionnaire PHQ-9 Over the last 2 weeks, how often have you been bothered by any of the following problems? 1. Little interest or pleasure in doing things: not at all 2. Feeling down, depressed, or hopeless: not at all 3. Trouble falling or staying asleep, or sleeping too much: not at all 4. Feeling tired or having little energy: not at all 5. Poor appetite or overeating: not at all 6. Feeling bad about yourself - or that you are a failure or have let yourself or your family down: not at all 7. Trouble concentrating on things, such as reading the newspaper or watching television: not at all 8. Moving or speaking so slowly that other people could have noticed. Or the opposite - being so fidgety or restless that you have been moving around a lot more than usual: not at all 9. Thoughts that you would be better off or of hurting yourself in some way: not at all Total score: 0 Depression Screening Interpretation: Negative Depression Screening Done: Yes 25234 - PHQ-9 Billing: Yes Source: Developed by Drs. Kentrell Lua, Kathryn Blackwell, Hesham Thomas and colleagues, with an educational adair from [employer]. Thrive Questionnaire Date Thrive assessed: 07/05/23 I am a: Patient What is your living situation today?: I have a steady place to live Within the past 12 months, did the food you bought not last and you didn't have the money to get more?: Never true Within the past 12 months, did you worry whether your food would run out before you got money to buy more?: Never true Do you have trouble paying for medicines?: No Do you have trouble getting transportation to medical appointments?: No Do you have trouble paying your heating and electricity bill?: No Do you have trouble taking care of your child, family member or friend?: No Do you have trouble with day-to-day activities such as bathing, preparing meals, shopping, managing finances, etc.?: No Are you currently unemployed and looking for a job?: No Are you interested in more education?: No Please select the resources that you would like help with: None Currently or been in a relationship where the following occur: no concerns reported THRIVE Score: 0 AUDIT C Alcohol Use Questionnaire (AUDIT-C) 1. How often do you have a drink containing alcohol?: Monthly or less 2. How many drinks containing alcohol do you have on a typical day when you are drinking?: 1 or 2 3. How often do you have six or more drinks on one occasion?: Never Total Score: 1 Score Reviewed/Action Taken: Yes ADALI-7 AMB Questionnaire ADALI-7 Date ADALI - 7 assessed: 07/05/23 Feeling nervous, anxious, or on edge: 0 = Not at all Not being able to stop or control worryin = Not at all Worrying too much about different things: 0 = Not at all Trouble relaxin = Not at all Being so restless that it is hard to sit still: 0 = Not at all Becoming easily annoyed or irritable: 0 = Not at all Feeling afraid as if something awful might happen: 0 = Not at all Total ADALI-7 score (0-4 normal; 5-9 mild; 10-14 moderate; 15-21 severe): 0 Source: Developed by Drs. Kentrell Lua, Kathryn Blackwell, Hesham Thomas and colleagues, with an educational adair from [employer]. Review of Systems Const Denies chills, Denies fatigue, Denies fever(s) and Denies headache(s) ENT Denies dysphagia, Denies dizziness, Denies otalgia, Denies headache(s), Denies neck pain, Denies odynophagia and Denies sore throat Card Denies chest pain, Denies palpitations and Denies dyspnea Resp Denies cough and Denies dyspnea GI Denies abdominal pain, Denies constipation, Denies dysphagia, Denies heartburn, Denies diarrhea, Denies nausea, Denies odynophagia and Denies vomiting Denies dysuria, Reports nocturia and Reports urinary frequency Musc Reports back pain (on and off, over the lower back), Denies arthralgias and Denies neck pain Skin/Breast Denies rash Neuro Denies dizziness and Denies headache(s) Endo Denies fatigue and Denies palpitations Physical exam (Primary Care) Vital Signs: Last Vital Signs Pulse 90 07/05/23 09:46 BP 112/74 07/05/23 09:46 Pulse Ox 96 07/05/23 09:46 Oxygen Delivery Method Room Air 07/05/23 09:46 BMI result Body Mass Index 30.4 Tobacco/Smoking Status: Tobacco use Status Tobacco use date assessed 07/05/23 07/05/23 09:47 Patient Tobacco Use Status Current someday Tobacco 07/05/23 09:47 Tobacco use type Cigarette 07/05/23 09:47 e-Cigarette/Vaping Use Never Used 07/05/23 09:47 PHQ-9: PHQ-9 Score PHQ-9: Total score 0 07/05/23 10:38 Depression Screening Interpretation: Negative Thrive Assessment: Date of Thrive Assessment Date Thrive assessed 07/05/23 07/05/23 09:47 Currently or been in a relationship where the following occur: no concerns reported Const General: no acute distress and alert HENMT Ears: TM's normal bilaterally and EAC's normal Throat: Yes posterior oropharynx normal and Yes tonsils normal (no TP congestion noted) Neck Neck: Yes no lymphadenopathy and Yes supple Thyroid: Thyroid normal Resp Auscultation: clear to auscultation bilaterally, no rales and no wheezes Cardio Rate: regular rate Rhythm: regular rhythm Heart sounds: no murmurs GI Palpation (GI): Soft to palpation and nontender Auscultation: normal bowel sounds General: Yes no CVA tenderness Back/Spine/Pelvis Back: no CVA tenderness Thoracic/Lumbar Spine: lumbar spinal tenderness (mild) Extrem General: Yes no clubbing, cyanosis or edema Results Reviewed Results Reviewed: Laboratory Tests 07/03/23 07/03/23 08:59 09:04 WBC 7.2 Hgb 15.7 Hct 45.3 Plt Count 175 Sodium 141 Potassium 3.7 Creatinine 0.95 Estimated GFR > 60 Fasting Glucose 106 H Hemoglobin A1c % 5.3 Calcium 9.0 D AST 22 ALT 30 Triglycerides 57 Cholesterol 144 LDL Cholesterol, Calc 89 HDL Cholesterol 44 Total PSA 1.31 25-OH Vitamin D Total 25.8 L TSH 1.21 Ur Specific [place] 1.020 Urine Protein Trace Urine Glucose (UA) Negative Urine Blood Negative Urine Nitrite Negative Ur Leukocyte Esterase Negative Assessment and Plan Assessment & Plan (1) 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: Code(s): C83.39 - Diffuse large B-cell lymphoma, extranodal and solid organ sites Plan: S/P laparoscopic small bowel resection on 09/14/20 - pathology reportedly came ou t as?non-Hodgkin's B-cell lymphoma He completed chemotherapy with R-CHOP and had Port-a-cath eventually removed (Tx was from 11/02/2020 to 02/15/2021) Patient currently remains in remission Follow up with oncology as scheduled for continuing surveillance (2) Internal jugular vein thrombosis: Code(s): I82.C19 - Acute embolism and thrombosis of unspecified internal jugular vein Qualifiers: Laterality: right Qualified Code(s): I82.C11 - Acute embolism and thrombosis of right internal jugular vein Plan: Venous doppler done following tunneled port removal revealed the persistence of a thrombus in the right IJ Right upper extremity US last done in December 2021 revealed NO DVT He has been taken off Apixaban 5 mg BID and currently remains on low dose Aspi rin 81 mg QD (3) Benign essential hypertension: Code(s): I10 - Essential (primary) hypertension Plan: Reinforced low sodium diet - goal is systolic BP of at least 140 mm or less Continue Lisinopril 5 mg QD Echocardiogram done back on 01/18/2021 came out normal - LV systolic function is low normal, EF is between 50-55% (4) Pure hypercholesterolemia: Code(s): E78.00 - Pure hypercholesterolemia, unspecified Plan: Results of his labs done a couple of days ago reviewed and discussed with patient Reinforced low cholesterol diet Continue Atorvastatin 80 mg QD - dose was reportedly increased to 80 mg daily by his doctor at the [place] a few months ago Will have patient recheck his labs and fasting lipids in 4 months for follow up (5) Impaired fasting glucose: Code(s): R73.01 - Impaired fasting glucose Plan: HgbA1c was again normal at 5.3% on his labs done a couple of days ago Reinforced low calorie diet/exercise as tolerated (6) Recurrent skin melanoma: Code(s): C43.9 - Malignant melanoma of skin, unspecified Plan: S/P excisional surgery on the nose with [facility] yesterday Follow up with [facility] as scheduled next week (7) Anxiety: Code(s): F41.9 - Anxiety disorder, unspecified Plan: Continue Lorazepam 0.5 mg QD PRN and Bupropion 150 mg QD (8) Smoker: Code(s): F17.200 - Nicotine dependence, unspecified, uncomplicated Plan: Counseled again on smoking cessation (9) Overweight (BMI 25.0-29.9): Code(s): E66.3 - Overweight Plan: Reinforced diet/exercise as tolerated/lose weight Plan Follow up in 4 months Orders: Orders Complete Blood Count Auto Diff 4 Months D64.9 - Anemia, unspecified Comprehensive [place]. 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
== END 2023-07-05 10:44 | disposition home or self-care (01) ==
PROVIDERS: PCP Internal Medicine; Visit Provider Internal Medicine
DX: C83.39 Diffuse large B-cell lymphoma, extranodal and solid organ sites (principal); I82.C11 Acute embolism and thrombosis of right internal jugular vein; I10 Essential (primary) hypertension; E78.00 Pure hypercholesterolemia, unspecified; R73.01 Impaired fasting glucose; C43.9 Malignant melanoma of skin, unspecified; F41.9 Anxiety disorder, unspecified; F17.200 Nicotine dependence, unspecified, uncomplicated; E66.3 Overweight
CPT/HCPCS: 99214; G2211

== ENCOUNTER 2023-11-02 07:40 | Outpatient (REF) | payer MEDICARE, SELFPAY ==
[2023-11-02 07:59] LABS: MANUAL DIFF FLAG NO
[2023-11-02 08:22] LABS: Basophils Absolute Auto 0.1 X10*3/uL (0.0-0.2); Basophils Percent Auto 0.6 % (0-2); Eosinophils Absolute Auto 1.3 X10*3/uL (0.0-0.4); Eosinophils Percent Auto 16.6 % (0-4); Hematocrit 44.9 % (42.0-52.0); Hemoglobin 15.4 g/dl (14.0-18.0); Imm Gran Abs Auto 0.04 X10*3/uL (0.00-0.03); Imm Gran Pct Auto 0.5 % (0.0-0.4); Lymphocytes Absolute Auto 1.8 X10*3/uL (1.2-4.9); Lymphocytes Percent Auto 22.9 % (20-40); Mean Corpuscular HGB Conc 34.3 g/dl (31.0-36.0); Mean Corpuscular Hemoglobin 32.7 pg (27.0-33.0); Mean Corpuscular Volume 95.3 fL (80.0-98.0); Mean Platelet Volume 9.4 fL (9.4-12.4); Monocytes Absolute Auto 0.7 X10*3/uL (0.1-1.2); Monocytes Percent Auto 8.8 % (2-11); Neutrophils Absolute Auto 3.9 x10*3/uL (2.0-8.3); Neutrophils Percent Auto 50.6 % (45-73); Platelet Count 180 X10*3/uL (160-400); Red Blood Count 4.71 X10*6/uL (4.60-5.80); Red Cell Distribution Width 13.6 % (11.0-16.0); White Blood Count 7.8 X10*3/uL (4.8-10.8)
[2023-11-02 08:49] LABS: Alanine Aminotransferase 25 U/L (0-40); Albumin Level 3.9 g/dL (3.5-5.0); Alkaline Phosphatase 86 U/L (39-117); Anion Gap 11 (12-20); Aspartate Amino Transferase 18 U/L (5-37); Bilirubin Total 0.2 mg/dL (0.0-1.0); Blood Urea Nitrogen 15 mg/dL (9-16); Calcium 9.2 mg/dL (8.4-10.2); Carbon Dioxide 24 mmol/L (22-29); Chloride 110 mmol/L (96-108); Cholesterol 147 mg/dL (<200); Estimated Glomerular Filt Rate > 60; Glucose Fasting 115 mg/dL (60-99); HDL Cholesterol 44 mg/dL (>40); LDL Cholesterol Calculated 90 mg/dL (<100); Potassium 3.8 mmol/L (3.3-5.1); Sodium 141 mmol/L (135-145); Total Protein 6.7 g/dL (6.5-8.0); Triglycerides 68 mg/dL (<150)
[2023-11-02 09:08] LABS: TSH reflex Free T4 1.53 uIU/mL (0.32-4.0); Vitamin D 25-OH Total 34.8 ng/mL (>30)
[2023-11-02 11:05] LABS: Appearance Urine Clear; Color Urine Yellow; Glucose Urine UA Negative (Negative); Leukocyte Esterase Urine Negative (Negative); Nitrite Urine Negative (Negative); UMIC TRIGGER UACC YES; Urine Blood Negative (Negative); Urine Ketones Negative (Negative); Urine Protein 30 (1+) mg/dL (Neg-Trace)
[2023-11-02 11:33] LABS: Bacteria Urine None Seen (None Seen); Hyaline Casts Urine 0-2 /LPF (0-2); RBC Urine 0-2 /HPF (0-2); Squamous Epithelial Cell Urine 0-2 /HPF (0-2); WBC Urine 0-5 /HPF (0-5)
== END 2023-11-02 07:41 | disposition home or self-care (01) ==
LOC: HO.LAB 07:40
PROVIDERS: PCP Internal Medicine; Visit Provider Internal Medicine
DX: D64.9 Anemia, unspecified (principal); E78.00 Pure hypercholesterolemia, unspecified; E55.9 Vitamin D deficiency, unspecified
CPT/HCPCS: 36415; 80053; 80061; 81001; 81003; 82306; 84443; 85025

== ENCOUNTER 2023-11-05 14:01 | Outpatient (AMB) | payer MEDICARE, SELFPAY ==
[2023-11-05 14:05] VITALS: BP 128/76; PULSE 93; O2SAT 98; BMI 31.8
--- NOTE | 2023-11-05 14:05 | A.OFFPC_ITS ---
Vital Signs 11/05/23 14:05 Height 5 ft 8 in Weight 209 lb BMI 31.8 BP 128/76 Blood Pressure Location Lt brachial Position Sitting Pulse 93 Pulse Source Pulse Oximeter Pulse Oximetry (%) 98 Oxygen Delivery Method Room Air Intake Visit Reasons: 4mof\u Allergies No Known Allergies Allergy (Verified 11/05/23 14:22) Medication List - Last Reconciled 11/05/23 by Zachery Rios MD aspirin 81 mg PO DAILY atorvastatin 80 mg PO .1/2 TABLET DAILY baclofen 20 mg PO BID PRN MDD 40 bupropion HCl (smoking deter) 150 mg PO DAILY lisinopril 5 mg PO DAILY multivitamin 1 tab PO DAILY polyethylene glycol 3350 (Gavilax) 17 grams PO DAILY 30 days Tobacco use date assessed: 07/05/23 Fall risk assessment: No Falls in past year Last assessed Fall Risk: 11/05/23 Dental Screening Dental Screen Date: 07/05/23 HPI 4mof\u HPI Details Patient comes in today for his follow up visit States that he feels okay although he has been feeling very fatigued often lately States that he has a tendency to fall asleep or doze off easily whenever he sits down and has a few minutes of quiet time Feels that he sleeps well at night but still often feel that he can use more sleep He denies any headaches or dizziness Denies any chest pains; has had exertional dyspnea for a while now and feels that he seems to get very winded easily lately, even with minimal exertion No nausea/vomiting, no abdominal pain No change in bowel habits noted He had his follow up labs done a few days ago - to discuss his results [facility] Medical History Smoker Urinary frequency 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 History of urinary retention Constipation Small bowel tumor SBO (small bowel obstruction) COVID-19 vaccine administered History of diverticulosis Overweight (BMI 25.0-29.9) Anxiety Skin cancer, 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 Lumbar strain Lumbar degenerative disc disease Impaired fasting glucose Benign essential hypertension Pure hypercholesterolemia Surgical History Hx of tooth extraction Status post small bowel resection (~09/14/20) H/O colonoscopy History of melanoma excision History of eye surgery Family History Father Cancer Mother Cancer Brother Colon cancer Social History Household Members: None Housing: House Are you a primary healthcare customer service to a significant other at home: No Do you presently have visiting nurse or other home services: No Alcohol intake: former Comment: aware of trip hazard Patient Tobacco Use Status: Current someday Tobacco user Tobacco use type: Cigarette Cigarettes Per Day: 3 Years Smoked: 60 e-Cigarette/Vaping Use: Never Used Second Hand Smoke Exposure: Yes Advance Directives Date on File: 08/17/20 service: Yes Current occupational status: retired Cognitive needs: No Hearing needs: No Vision needs: No Questionnaire PHQ-9 Over the last 2 weeks, how often have you been bothered by any of the following problems? 1. Little interest or pleasure in doing things: not at all 2. Feeling down, depressed, or hopeless: not at all 3. Trouble falling or staying asleep, or sleeping too much: not at all 4. Feeling tired or having little energy: not at all 5. Poor appetite or overeating: not at all 6. Feeling bad about yourself - or that you are a failure or have let yourself or your family down: not at all 7. Trouble concentrating on things, such as reading the newspaper or watching television: not at all 8. Moving or speaking so slowly that other people could have noticed. Or the opposite - being so fidgety or restless that you have been moving around a lot more than usual: not at all 9. Thoughts that you would be better off or of hurting yourself in some wa y: not at all Total score: 0 Depression Screening Interpretation: Negative Depression Screening Done: Yes 96738 - PHQ-9 Billing: Yes Source: Developed by Drs. Kentrell Lua, Kathryn Blackwell, Hesham Thomas and colleagues, with an educational adair from [employer]. Thrive Questionnaire Date Thrive assessed: 07/05/23 AUDIT C Alcohol Use Questionnaire (AUDIT-C) 1. How often do you have a drink containing alcohol?: Monthly or less 2. How many drinks containing alcohol do you have on a typical day when you are drinking?: 1 or 2 3. How often do you have six or more drinks on one occasion?: Never Total Score: 1 Score Reviewed/Action Taken: Yes ADALI-7 AMB Questionnaire ADALI-7 Date ADALI - 7 assessed: 07/05/23 Source: Developed by Drs. Kentrell Lua, Kathryn Blackwell, Hesham Thomas and colleagues, with an educational adair from [employer]. Review of Systems Const Denies chills, Denies difficulty sleeping, Reports fatigue (increased lately; states that he gets tired easily with minimal exertion), Denies fever(s) and Denies headache(s) ENT Denies dysphagia, Denies dizziness, Denies otalgia, Denies headache(s), Denies neck pain, Denies odynophagia and Denies sore throat Card Denies chest pain, Denies palpitations and Reports dyspnea on exertion (feels that this has increased lately) Resp Denies cough, Reports dyspnea on exertion (feels that this has increased lately) and Denies wheezing GI Denies abdominal pain, Denies constipation, Denies dysphagia, Denies heartburn, Denies diarrhea, Denies nausea, Denies odynophagia and Denies vomiting Denies dysuria, Reports nocturia and Reports urinary frequency Musc Denies back pain, Denies arthralgias and Denies neck pain Skin/Breast Denies rash Neuro Denies dizziness and Denies headache(s) Psych Denies anxiety Endo Reports fatigue (increased lately; states that he gets tired easily with minimal exertion) and Denies palpitations Aller/Immun Denies wheezing Physical exam (Primary Care) Vital Signs: Last Vital Signs Pulse 93 11/05/23 14:05 BP 128/76 11/05/23 14:05 Pulse Ox 98 11/05/23 14:05 Oxygen Delivery Method Room Air 11/05/23 14:05 BMI result Body Mass Index 31.8 Tobacco/Smoking Status: Tobacco use Status Tobacco use date assessed 07/05/23 11/05/23 14:10 Patient Tobacco Use Status Current someday Tobacco 11/05/23 14:10 Tobacco use type Cigarette 11/05/23 14:10 e-Cigarette/Vaping Use Never Used 11/05/23 14:10 PHQ-9: PHQ-9 Score PHQ-9: Total score 0 11/05/23 14:10 Depression Screening Interpretation: Negative Thrive Assessment: Date of Thrive Assessment Date Thrive assessed 07/05/23 11/05/23 14:10 Const General: no acute distress and alert HENMT Ears: TM's normal bilaterally and EAC's normal Throat: Yes posterior oropharynx normal and Yes tonsils normal (no TP congestion noted) Neck Neck: Yes no lymphadenopathy and Yes supple Thyroid: Thyroid normal Resp Auscultation: clear to auscultation bilaterally, no rales and no wheezes Cardio Rate: regular rate Rhythm: regular rhythm Heart sounds: no murmurs GI Palpation (GI): Soft to palpation and nontender Auscultation: normal bowel sounds General: Yes no CVA tenderness Back/Spine/Pelvis Back: no CVA tenderness Thoracic/Lumbar Spine: lumbar spinal tenderness (mild) Skin Rashes: no rashes Extrem General: Yes no clubbing, cyanosis or edema Results Reviewed Results Reviewed: Laboratory Tests 11/02/23 11/02/23 07:57 08:00 WBC 7.8 Hgb 15.4 Hct 44.9 Plt Count 180 Sodium 141 Potassium 3.8 Creatinine 0.93 Estimated GFR > 60 Fasting Glucose 115 H Calcium 9.2 AST 18 ALT 25 Triglycerides 68 Cholesterol 147 LDL Cholesterol, Calc 90 HDL Cholesterol 44 25-OH Vitamin D Total 34.8 TSH 1.53 Ur Specific [place] 1.020 Urine Protein 30 (1+) H Urine Glucose (UA) Negative Urine Blood Negative Urine Nitrite Negative Ur Leukocyte Esterase Negative Assessment and Plan Assessment & Plan (1) Benign essential hypertension: Code(s): I10 - Essential (primary) hypertension Plan: Reinforced low sodium diet - goal is systolic BP of at least 140 mm or less Continue Lisinopril 5 mg QD He is reminded to continue monitoring his blood pressure regularly (2) Exertional dyspnea: Code(s): R06.09 - Other forms of dyspnea Plan: Echocardiogram done back on 01/18/2021 came out normal - LV systolic function is low normal, EF is between 50-55% Due to his recently increasing GARCIA, will send him for repeat echocardiogram for further evaluation (3) Pure hypercholesterolemia: Code(s): E78.00 - Pure hypercholesterolemia, unspecified Plan: Results of his labs done a few days ago reviewed and discussed with patient Reinforced low cholesterol diet Continue Atorvastatin 80 mg QD - his dose was reportedly increased to 80 mg daily by his doctor at the [facility] last year Will have patient recheck his labs and fasting lipids in 4 months for follow up (4) Impaired fasting glucose: Code(s): R73.01 - Impaired fasting glucose Plan: HgbA1c was normal at 5.4% when previously checked a few months ago Reinforced low calorie diet/exercise as tolerated (5) Daytime somnolence: Code(s): R40.0 - Somnolence Plan: Patient scored 15 on his [place] Sleepiness Scale and 6 on his STOP-Bang questionnaire, both of which raises suspicion of Sleep Apnea With his recently increased fatigue and daytime somnolence, have advised that he should get tested for sleep apnea as it can have a significant impact on his overall health if it is undiagnosed and untreated Will send him for a home sleep study for further evaluation (6) 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: Code(s): C83.39 - Diffuse large B-cell lymphoma, extranodal and solid organ sites Plan: S/P laparoscopic small bowel resection on 09/14/20 - pathology reportedly came out as?non-Hodgkin's B-cell lymphoma He completed chemotherapy with R-CHOP and had Port-a-cath eventually removed (Tx from 11/02/2020 to 02/15/2021) He was recently seen by Oncology for follow-up and patient currently remains in remission Follow up with oncology as scheduled for continuing surveillance (7) Internal jugular vein thrombosis: Code(s): I82.C19 - Acute embolism and thrombosis of unspecified internal jugular vein Qualifiers: Laterality: right Qualified Code(s): I82.C11 - Acute embolism and thrombosis of right internal jugular vein Plan: Venous doppler done following tunneled port removal revealed the persistence of a thrombus in the right IJ Right upper extremity US last done in December 2021 revealed NO DVT He has been taken off Apixaban 5 mg BID and currently remains on low dose Aspirin 81 mg QD (8) Recurrent skin melanoma: Code(s): C43.9 - Malignant melanoma of skin, unspecified Plan: S/P excisional surgery on the nose with [facility] Follow up with [facility] as scheduled for continuing surveillance (9) Anxiety: Code(s): F41.9 - Anxiety disorder, unspecified Plan: Continue Lorazepam 0.5 mg QD PRN and Bupropion 150 mg QD (10) Smoker: Code(s): F17.200 - Nicotine dependence, unspecified, uncomplicated Plan: Counseled again on smoking cessation (11) Overweight (BMI 25.0-29.9): Code(s): E66.3 - Overweight Plan: Reinforced diet/exercise as tolerated/lose weight Plan Follow up in 4 months Orders: Orders CA echo transthoracic complete Today R06.09 - Other forms of dyspnea TSH reflex Free T4 4 Months E78.00 - Pure hypercholesterolemia, unspecified RT home sleep study Today R40.0 - Somnolence, R53.83 - Other fatigue Complete Blood Count Auto Diff 4 Months D64.9 - Anemia, unspecified Comprehensive [place]. 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
== END 2023-11-05 14:39 | disposition home or self-care (01) ==
PROVIDERS: PCP Internal Medicine; Visit Provider Internal Medicine
DX: I10 Essential (primary) hypertension (principal); R06.09 Other forms of dyspnea; E78.00 Pure hypercholesterolemia, unspecified; R73.01 Impaired fasting glucose; R40.0 Somnolence; F41.9 Anxiety disorder, unspecified; F17.200 Nicotine dependence, unspecified, uncomplicated; E66.3 Overweight
CPT/HCPCS: 99214; G2211

== ENCOUNTER 2023-12-07 07:58 | Day surgery (SDC) | payer MEDICARE, SELFPAY ==
--- NOTE | 2023-12-06 09:53 | P.CONAN_ITS ---
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) Lymphadenopathy of head and neck (Acute) Raynaud's syndrome (Acute) Internal jugular vein thrombosis (Acute) Internal jugular (IJ) vein thromboembolism, acute (Acute) Onycholysis of toenail (Acute) Constipation (Acute) Overweight (BMI 25.0-29.9) (Acute) Anxiety (Acute) Malignant melanoma of nose (Acute) Claudication of both lower extremities (Acute) Lumbar strain (Acute) Lumbar degenerative disc disease (Acute) Impaired fasting glucose (Acute) Benign essential hypertension (Acute) Pure hypercholesterolemia (Acute) Past Medical History Medical History Smoker Urinary frequency 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 History of urinary retention Constipation Small bowel tumor SBO (small bowel obstruction) COVID-19 vaccine administered History of diverticulosis Overweight (BMI 25.0-29.9) Anxiety Skin cancer, 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 Lumbar strain Lumbar degenerative disc disease Impaired fasting glucose Benign essential hypertension Pure hypercholesterolemia Family History Family History Father Cancer Mother Cancer Brother Colon cancer Family history of problems with anesthesia: No Surgical History Surgical History Hx of tooth extraction Status post small bowel resection (~09/14/20) H/O colonoscopy History of melanoma excision History of eye surgery History of Problems with Anesthesia: No Social History Social History Household Members: None Housing: House Are you a primary field care coordinator to a significant other at home: No Do you presently have visiting nurse or other home services: No Alcohol intake: former Comment: aware of trip hazard Patient Tobacco Use Status: Current everyday Tobacco user Tobacco use type: Cigarette Cigarettes Per Day: 4 Years Smoked: 60 e-Cigarette/Vaping Use: Never Used Second Hand Smoke Exposure: Yes Use of substances other than those prescribed or required for medical reasons: No Have you been hit, kicked, punched, or otherwise hurt by someone within the past year? If so, by whom?: No Are you DNR?: No Advance Directives: No Advance Directives Information Provided: Yes Advance Directives Date on File: 08/17/20 Recently lost weight without trying: No service: Yes Current occupational status: retired Cognitive needs: No Hearing needs: No Vision needs: No Meds Allergies Allergy/AdvReac Type Severity Reaction Status Date / Time naproxen [From Naprosyn] Allergy Unknown Unverified 12/06/23 07:53 Home Medications ?Medication ?Instructions ?Recorded ?Confirmed ?Last Taken ?Type atorvastatin 80 mg tablet 80 mg PO .1/2 TABLET DAILY 02/06/20 11/06/23 10/26/20 06:00 History bupropion HCl (smoking deter) 150 150 mg PO DAILY 02/06/20 11/06/23 Unknown History mg tablet,12 hr sustained-release(smoking deterrent) lisinopril 5 mg tablet 5 mg PO DAILY 02/06/20 11/06/23 10/26/20 06:00 History multivitamin 1 tab PO DAILY 10/01/20 11/06/23 Unknown History baclofen 20 mg tablet 20 mg PO BID PRN Spasms 03/15/21 11/06/23 Unknown History aspirin 81 mg tablet 81 mg PO DAILY 03/02/23 11/06/23 Unknown History Assessment and Plan Assessment Anesthesia Assessment: Chart Reviewed Final Anesthetic Review Family History of Problems with Anesthesia: No History of Problems with Anesthesia: No Documented by User: Corinna Grajeda MD 12/07/23 08:24 [facility] Past Medical History Medical History Smoker Urinary frequency 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 History of urinary retention Constipation Small bowel tumor SBO (small bowel obstruction) COVID-19 vaccine administered History of diverticulosis Overweight (BMI 25.0-29.9) Anxiety Skin cancer, 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 Lumbar strain Lumbar degenerative disc disease Impaired fasting glucose Benign essential hypertension Pure hypercholesterolemia Family History Family History Father Cancer Mother Cancer Brother Colon cancer Surgical History Surgical History Hx of tooth extraction Status post small bowel resection (~09/14/20) H/O colonoscopy History of melanoma excision History of eye surgery Social History Social History Household Members: None Housing: House Are you a primary field care coordinator to a significant other at home: No Do you presently have visiting nurse or other home services: No Alcohol intake: former Comment: aware of trip hazard Patient Tobacco Use Status: Current everyday Tobacco user Tobacco use type: Cigarette Cigarettes Per Day: 4 Years Smoked: 60 e-Cigarette/Vaping Use: Never Used Second Hand Smoke Exposure: Yes Use of substances other than those prescribed or required for medical reasons: No Have you been hit, kicked, punched, or otherwise hurt by someone within the past year? If so, by whom?: No Are you DNR?: No Advance Directives: No Advance Directives Information Provided: Yes Advance Directives Date on File: 08/17/20 Recently lost weight without trying: No service: Yes Current occupational status: retired Cognitive needs: No Hearing needs: No Vision needs: No Meds Allergies Allergy/AdvReac Type Severity Reaction Status Date / Time naproxen [From Naprosyn] Allergy Unknown Unverified 12/06/23 07:53 Home Medications ?Medication ?Instructions ?Recorded ?Confirmed ?Last Taken ?Type atorvastatin 80 mg tablet 80 mg PO .1/2 TABLET DAILY 02/06/20 11/06/23 10/26/20 06:00 History bupropion HCl (smoking deter) 150 150 mg PO DAILY 02/06/20 11/06/23 Unknown History mg tablet,12 hr sustained-release(smoking deterrent) lisinopril 5 mg tablet 5 mg PO DAILY 02/06/20 11/06/23 10/26/20 06:00 History multivitamin 1 tab PO DAILY 10/01/20 11/06/23 Unknown History baclofen 20 mg tablet 20 mg PO BID PRN Spasms 03/15/21 11/06/23 Unknown History aspirin 81 mg tablet 81 mg PO DAILY 03/02/23 11/06/23 Unknown History Exam Airway Mallampati Class: III TM Dist: >3cm Neck ROM: Limited Heart: rrr Lungs: cta Assessment and Plan Assessment Anesthesia Assessment: Anesthesia Plan Discussed Final Anesthetic Review NPO: Yes ASA Class: III Final Preanesthetic Review: No Changes in Pt Med Stat, Meds/Allgs Chart Reviewed, Consent Obtained/Reviewed and Anes Risks/Benef Reviewed Patient Risk: Low Procedure Risk: Low Anesthetic Plan Anesthetic Plan: MAC: Disposition: Standard PACU
[2023-12-07 08:06] VITALS: TEMP 36.7; BMI 30.6
[2023-12-07] MEDS: Lactated Ringers 1,000 ML 100 ML IVCONT (08:24)
--- NOTE | 2023-12-07 08:33 | MHC.SHP ---
Pre-Procedural Eval Section A - 24 Hr Update-Section A only Date of Service: 12/07/23 Section B - Complete if H&P > 30 days Chief Complaint: Personal history of colonic polyps Details of Present Illness: see H&P no changes Relevant Social History: None Present Medications: see Short Stay Collaborative assessment Medical History: No relevant PMH History of Previous Operations: No relevant previous surgery Allergies: Allergies Allergy/AdvReac Type Severity Reaction Status Date / Time naproxen [From Naprosyn] Allergy Unknown Unverified 12/06/23 07:53 Review of Systems Sugical H&P ROS: Negative: Constitution, Cardiovascular, Respiratory, Neurological, Psychiatric, Hem-Onc, Allergic/Immunologic, Gastrointestinal, Genitourinary, Musculoskeletal, Integumentary, Endocrine and Eyes/Ears/Nose/Throat Exam Surgical H&P Exam: Normal: HEENT, Normal: Heart, Normal: Lungs, Normal: Extremities, Normal: Abdomen, Normal: Skin and Normal: Neurological Plan Diagnosis/Plan: Unchanged I have reviewed the history and physical and performed a pertinent physical examination on my patient. No changes have occurred unless specified. Time Spent With Patient Time: Total time managing care of this patient today ____ minutes.
[2023-12-07 09:10] VITALS: BP 99/60; PULSE 82; RESP 12; TEMP 36.6; O2SAT 92
[2023-12-07 09:25] VITALS: BP 117/63; PULSE 88; RESP 19; O2SAT 98
--- NOTE | 2023-12-07 09:39 | OP_ITS ---
DATE OF SERVICE: 12/07/2023 SURGEON: Rian Metzger MD INDICATIONS: Colon cancer screening. Poor prep on last colonoscopy. PREOPERATIVE DIAGNOSIS: POSTOPERATIVE DIAGNOSIS: PROCEDURE PERFORMED: Colonoscopy to the cecum. ESTIMATED BLOOD LOSS: COMPLICATIONS: ANESTHESIA: Medications, monitored anesthesia care. ASSISTANTS: SPECIMENS: DESCRIPTION OF PROCEDURE: A history and physical performed. The risks and benefits of the procedure were explained to the patient. Informed consent was obtained. The patient was placed in the left lateral decubitus position. A digital rectal exam was performed and was found to be normal. The Olympus pediatric video colonoscope was introduced into the rectum. The scope was advanced to the cecum. The cecum was identified by transillumination, palpation, and identification of ileocecal valve. Examination was performed. The scope was removed. He tolerated the procedure well and was taken to recovery room in stable condition. FINDINGS: The terminal ileum was not examined. The cecum was not well seen due to looping in the sigmoid. The scope could not be advanced below the ileocecal valve due to this as well as the poor prep. The prep was poor with a large amount of liquid, formed, and undigested food material in the colon. This limited the examination for detection of small polyps, this was washed and suctioned as best possible. However, the scope kept clogging and the exam was extremely limited. No polyps were identified. There was mild sigmoid diverticulosis. Retroflexed examination showed some small internal hemorrhoids. IMPRESSION: Limited colonoscopy. RECOMMENDATION: Follow up in the office in 6-12 months. Screening colonoscopy in 1 year based on poor prep. MD JOSÉ MIGUEL Oliva/TIMOTHY / [id number] BROCK
[2023-12-07 09:40] VITALS: BP 124/73; PULSE 87; RESP 20; TEMP 36.6; O2SAT 98
--- NOTE | 2023-12-07 09:53 | P.BOP_ITS ---
Brief Operative Note Date of Service: 12/07/23 Pre-op diagnosis: screening Post-op diagnosis: same Procedure: colonoscopy Surgeon: Rian Metzger MD Anesthesia: MAC Was an Pocket And Pulley Machine Operator used for this Procedure?: No Estimated blood loss (mL): 0 Pathology: none sent Condition: stable Disposition: PACU
== END 2023-12-07 10:20 | disposition home or self-care (01) ==
PROVIDERS: PCP Internal Medicine; Visit Provider Internal Medicine Gastroenterology
PROC: 0DJD8ZZ Inspection of Lower Intestinal Tract, Via Natural or Artificial Opening Endoscopic (ICD-10-PCS; CPT 45378; principal; 2023-12-07 09:10)
DX: Z12.11 Encounter for screening for malignant neoplasm of colon (principal); Z86.010 Personal history of colon polyps; K56.2 Volvulus; Z85.72 Personal history of non-Hodgkin lymphomas; K57.30 Diverticulosis of large intestine without perforation or abscess without bleeding; K64.8 Other hemorrhoids; Z85.828 Personal history of other malignant neoplasm of skin; Z85.820 Personal history of malignant melanoma of skin; I10 Essential (primary) hypertension; R73.03 Prediabetes; E78.5 Hyperlipidemia, unspecified; Z79.82 Long term (current) use of aspirin; Z79.899 Other long term (current) drug therapy; Z88.6 Allergy status to analgesic agent; Z98.890 Other specified postprocedural states; F17.210 Nicotine dependence, cigarettes, uncomplicated
CPT/HCPCS: G0105; J2704

== ENCOUNTER → 2024-01-04 12:31 | Outpatient (REF) | payer MEDICARE, SELFPAY ==
--- NOTE | 2024-01-04 12:33 | CA_ITS ---
Transthoracic Echocardiogram Patient (Last, First, Middle): Robert Mcintyre J Gender: Male Date of : 1945 Age: 78 Procedure Date: 01/04/2024 Procedure Type: Transthoracic Echocardiogram Location: OP Height: 175.26 cm Weight: 90.72 kg BSA: 2.07 m2 Heart Rate: 90 bpm BP: 128 / 76 mmHg Sales Marketing Coordinator: SB Referring MD: Zachery Rios MD Symptoms: R06.09 - Other forms of dyspnea Study Quality: Adequate w contrast ECG Rhythm: Sinus Conclusions: - Normal left ventricular size and systolic function. The visually estimated ejection fraction is between 55-60%. - E/E prime ratio is between 8 and 15 consistent with indeterminate filling pressures. - Normal right ventricular cavity size and systolic function. - There is mild dilatation of the ascending aorta measuring 4.00 cm. Findings Procedure Information Contrast agent, definity, is being given per protocol without apparent complications. Left Ventricle Normal left ventricular size and systolic function. The visually estimated ejection fraction is between 55-60%. There is no evidence of regional wall motion abnormalities. Abnormal diastolic function is noted. Spectral Doppler is indicative of an impaired relaxation filling pattern. E/E prime ratio is between 8 and 15 consistent with indeterminate filling pressures. There is mild septal asymmetric hypertrophy. Right Ventricle Normal right ventricular cavity size and systolic function. Atria The left atrium is normal in size. Aortic Valve There is a normal trileaflet aortic valve. There is no aortic valve stenosis. There is no aortic valve regurgitation. Mitral Valve The mitral valve appears normal. Pulmonic Valve The pulmonic valve is likely normal. Tricuspid Valve Normal tricuspid valve structure. There is no tricuspid valve regurgitation. Tricuspid regurgitation envelope is inadequate for calculation of right ventricular systolic pressure. Normal right atrial pressure. Great Vessels There is mild dilatation of the ascending aorta measuring 4.00 cm. The visualized portions of the pulmonary artery and branches are normal. Venous The inferior vena cava is normal in size and collapses greater than 50% with inspiration. Pericardium/Pleural There is no evidence of pericardial effusion. Prior Study Comparison No significant change compared to prior study dated: 01/18/2021. Measurements 2D Linear Measurements IVSd: 1.22 0.6-0.9/0.6-1.0 cm LVIDd: 4.97 3.9-5.3/4.2-5.9 cm LVIDd Index: 2.40 2.4-3.2/2.2-3.1 cm/m2 LVIDs: 3.69 2.0-3.6 cm LVPWd: 0.96 0.7-1.1 cm LA Diam: 3.40 2.7-3.8/3.0-4.0 cm LAIDs Index: 1.64 1.5-2.3 cm/m2 LV Mass: 253.11 67-162/88-224 g LV Mass Index: 122.28 43-95/49-115 g/m2 LVOT Diam: 2.10 3.0+(-)1.3 cm 2D Systolic Function EF 4C: 51.30 >55% EF 2C: 44.60 >55% EF BiP: 49.00 >55% Mitral Valve MV Pk E: 0.57 MV PK A: 0.90 MV Decel Time: 273.00 E/A: 0.60 E'Lateral: 6.20 E'Medial: 4.13 E/E' Med: 13.70 E/E' Lat: 9.10 PHT: 80.00 MVA PHT: 2.75 Decel Hays: 2.07 Aortic Valve AoV Pk Alfredo: 1.18 AoV Pk Grad: 6.00 CHATA: 2.88 LVOT LVOT Pk Alfredo: 0.88 LVOT Mn Alfredo: 0.61 LVOT VTI: 0.15 LVOT Pk Grad: 3.00 LVOT Mn Grad: 2.00 LVOT Diam: 2.10 LVOT Area: 3.46 Diastolic Function MV Pk E: 0.57 MV Pk A: 0.90 E/A: 0.60 E'Medial: 4.13 E/E' Med: 13.70 E' Laterial: 6.20 E/E' Lat: 9.10 Right Ventricle TAPSE (mm): 17.00 TVS' Alfredo: 8.80 Tricuspid Valve RA Press: 3.00 Great Vessels Aorta Sinus of Valsalva: 3.70 2.0-3.5 cm Ao Asc: 4.00 2.1-3.4 cm Pulmonary Veins Pulm Vein S/D 1.90 Pulmonary Valve PV Pk Alfredo: 0.87 Peak PV Grad: 3.00 Updated in Other Vendor System with Status of Final Escobar Coles MD electronically signed on 01/06/2024 8:56:34 PM with status of Final
== END ==
LOC: HO.CARD 12:31
PROVIDERS: PCP Internal Medicine; Visit Provider Internal Medicine
DX: R06.09 Other forms of dyspnea (principal)
CPT/HCPCS: 93306; Q9957

== ENCOUNTER → 2024-01-04 12:33 | Outpatient (BNV) | payer MEDICARE, SELFPAY | PROVIDERS: PCP Internal Medicine; Visit Provider Internal Medicine Cardiovascular Disease | DX: I42.2 Other hypertrophic cardiomyopathy (principal) | CPT/HCPCS: 93306 ==

== ENCOUNTER → 2024-01-24 12:56 | Outpatient (REF) | payer MEDICARE, SELFPAY | LOC: HO.SL 12:56 | PROVIDERS: PCP Internal Medicine; Visit Provider Internal Medicine | DX: R40.0 Somnolence (principal); R53.83 Other fatigue; G47.10 Hypersomnia, unspecified; Z53.8 Procedure and treatment not carried out for other reasons | CPT/HCPCS: 95806 ==

== ENCOUNTER 2024-03-07 13:18 | Outpatient (AMB) | payer MEDICARE, SELFPAY ==
[2024-03-07 13:20] VITALS: BP 122/80; PULSE 98; O2SAT 94; BMI 31.9
--- NOTE | 2024-03-07 13:20 | A.OFFPC_ITS ---
Vital Signs 03/07/24 13:20 Height 5 ft 9 in Weight 216 lb 4 oz BMI 31.9 BP 122/80 Blood Pressure Location Lt brachial Position Sitting Pulse 98 Pulse Source Pulse Oximeter Pulse Oximetry (%) 94 Oxygen Delivery Method Room Air Intake Visit Reasons: R Cataract 03/13/24 Venue Coordinator Required: No Accompanied by: Self / Same As Patient Allergies naproxen [From Naprosyn] Allergy (Verified 03/09/24 13:21) Unknown Medication List - Last Reconciled 03/09/24 by Zachery Rios MD aspirin 81 mg PO DAILY atorvastatin 80 mg PO .1/2 TABLET DAILY baclofen 20 mg PO BID PRN MDD 40 bupropion HCl (smoking deter) 150 mg PO DAILY lisinopril 5 mg PO DAILY multivitamin 1 tab PO DAILY polyethylene glycol 3350 (Gavilax) 17 grams PO DAILY 30 days Tobacco use date assessed: 03/07/24 Fall risk assessment: No Falls in past year Last assessed Fall Risk: 03/07/24 Dental Screening Dental Screen Date: 03/07/24 Did you have a dental visit in the last 12 months?: Yes Did you have a dental problem in the last 6 months where you did not have access to dental care?: No Was dental information given to patient?: Patient has dentist HPI R Cataract 03/13/24 HPI Details Patient comes in today for his follow up visit as well as for a preoperative medical examination for clearance for surgery He is scheduled for cataract extraction/phacoemulsification with IOL of the right eye under MAC next week on 03/13/[address] Gomez Chan States that he feels okay He denies any headaches or dizziness Denies any chest pains, no increased shortness of breath No nausea/vomiting, no abdominal pain No change in bowel habits noted He was not able to get his follow-up labs done prior to his appointment today [facility] Medical History (Updated 03/09/24 @ 13:55 by Zachery Rios MD) Obesity (BMI 30-39.9) Smoker Urinary frequency 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 History of urinary retention Constipation Small bowel tumor SBO (small bowel obstruction) COVID-19 vaccine administered History of diverticulosis Overweight (BMI 25.0-29.9) Anxiety Skin cancer, 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 Lumbar strain Lumbar degenerative disc disease Impaired fasting glucose Benign essential hypertension Pure hypercholesterolemia Surgical History Hx of tooth extraction Status post small bowel resection (~09/14/20) H/O colonoscopy History of melanoma excision History of eye surgery Family History Father Cancer Mother Cancer Brother Colon cancer Social History Household Members: None Housing: House Are you a primary urgent care technician to a significant other at home: No Do you presently have visiting nurse or other home services: No Alcohol intake: former Comment: aware of trip hazard Patient Tobacco Use Status: Current everyday Tobacco user Tobacco use type: Cigarette Cigarettes Per Day: 4 Years Smoked: 60 e-Cigarette/Vaping Use: Never Used Second Hand Smoke Exposure: Yes Advance Directives Date on File: 08/17/20 service: Yes Current occupational status: retired Cognitive needs: No Hearing needs: No Vision needs: No Questionnaire PHQ-9 Over the last 2 weeks, how often have you been bothered by any of the following problems? 1. Little interest or pleasure in doing things: not at all 2. Feeling down, depressed, or hopeless: not at all 3. Trouble falling or staying asleep, or sleeping too much: not at all 4. Feeling tired or having little energy: not at all 5. Poor appetite or overeating: not at all 6. Feeling bad about yourself - or that you are a failure or have let yourself or your family down: not at all 7. Trouble concentrating on things, such as reading the newspaper or watching television: not at all 8. Moving or speaking so slowly that other people could have noticed. Or the opposite - being so fidgety or restless that you have been moving around a lot more than usual: not at all 9. Thoughts that you would be better off or of hurting yourself in some way: not at all Total score: 0 Depression Screening Interpretation: Negative Depression Screening Done: Yes 98874 - PHQ-9 Billing: Yes Source: Developed by Drs. Kentrell Lua, Hesham Rosado and colleagues, with an educational adair from [employer] Thrive Questionnaire Date Thrive assessed: 03/07/24 I am a: Patient What is your living situation today?: I have a steady place to live Within the past 12 months, did the food you bought not last and you didn't have the money to get more?: Never true Within the past 12 months, did you worry whether your food would run out before you got money to buy more?: Never true Do you have trouble paying for medicines?: No Do you have trouble getting transportation to medical appointments?: No Do you have trouble paying your heating and electricity bill?: No Do you have trouble taking care of your child, family member or friend?: No Do you have trouble with day-to-day activities such as bathing, preparing meals, shopping, managing finances, etc.?: No Are you currently unemployed and looking for a job?: No Are you interested in more education?: No Please select the resources that you would like help with: None Currently or been in a relationship where the following occur: No concerns reported THRIVE Score: 0 AUDIT C Alcohol Use Questionnaire (AUDIT-C) 1. How often do you have a drink containing alcohol?: Monthly or less 2. How many drinks containing alcohol do you have on a typical day when you are drinking?: 1 or 2 3. How often do you have six or more drinks on one occasion?: Never Total Score: 1 Score Reviewed/Action Taken: Yes ADALI-7 AMB Questionnaire ADALI-7 Date ADALI - 7 assessed: 03/07/24 Feeling nervous, anxious, or on edge: 0 = Not at all Not being able to stop or control worryin = Not at all Worrying too much about different things: 0 = Not at all Trouble relaxin = Not at all Being so restless that it is hard to sit still: 0 = Not at all Becoming easily annoyed or irritable: 0 = Not at all Feeling afraid as if something awful might happen: 0 = Not at all Total ADALI-7 score (0-4 normal; 5-9 mild; 10-14 moderate; 15-21 severe): 0 Source: Developed by Drs. Kentrell Lua, Hesham Rosado and colleagues, with an educational adair from [employer] Review of Systems Const Denies chills, Denies difficulty sleeping, Denies fatigue, Denies fever(s) and Denies headache(s) Eyes Reports blurry vision (R eye) ENT Denies dysphagia, Denies dizziness, Denies otalgia, Denies headache(s), Denies neck pain, Denies odynophagia and Denies sore throat Card Denies chest pain, Denies palpitations and Reports dyspnea on exertion (mild) Resp Denies chest congestion, Denies cough and Reports dyspnea on exertion (mild) GI Denies abdominal pain, Denies constipation, Denies dysphagia, Denies heartburn, Denies diarrhea, Denies nausea, Denies odynophagia and Denies vomiting Denies dysuria, Reports nocturia and Reports urinary frequency Musc Denies back pain, Denies arthralgias and Denies neck pain Skin/Breast Denies rash Neuro Denies dizziness and Denies headache(s) Psych Denies anxiety Endo Denies fatigue and Denies palpitations Physical exam (Primary Care) Vital Signs: Last Vital Signs Pulse 98 03/07/24 13:20 BP 122/80 03/07/24 13:20 Pulse Ox 94 03/07/24 13:20 Oxygen Delivery Method Room Air 03/07/24 13:20 BMI result Body Mass Index 31.9 Tobacco/Smoking Status: Tobacco use Status Tobacco use date assessed 03/07/24 03/07/24 13:25 Patient Tobacco Use Status Current everyday Tobacco 03/07/24 13:25 Tobacco use type Cigarette 03/07/24 13:25 e-Cigarette/Vaping Use Never Used 03/07/24 13:25 PHQ-9: PHQ-9 Score PHQ-9: Total score 0 03/07/24 13:49 Depression Screening Interpretation: Negative Thrive Assessment: Date of Thrive Assessment Date Thrive assessed 03/07/24 03/07/24 13:25 Currently or been in a relationship where the following occur: No concerns reported Const General: no acute distress and alert HENMT Ears: TM's normal bilaterally and EAC's normal Throat: Yes posterior oropharynx normal and Yes tonsils normal (no TP congestion noted) Neck Neck: Yes supple and No lymphadenopathy Thyroid: Thyroid normal Resp Auscultation: clear to auscultation bilaterally, no rales and no wheezes Cardio Rate: regular rate Rhythm: regular rhythm Heart sounds: no murmurs GI Palpation (GI): Soft to palpation and nontender Auscultation: normal bowel sounds General: Yes no CVA tenderness Back/Spine/Pelvis Back: no CVA tenderness Thoracic/Lumbar Spine: lumbar spinal tenderness (mild) Skin Rashes: no rashes Extrem General: Yes no clubbing, cyanosis or edema Coding Level of Care Code Est Pt Level 4 (44836) Diagnoses Preoperative examination Z01.818 Senile cataract of right eye, unspecified age-related cataract type H25.9 Cataract type: age-related Age-related cataract type: unspecified Benign essential hypertension I10 Pure hypercholesterolemia E78.00 Impaired fasting glucose R73.01 Exertional dyspnea R06.09 Mild ascending aorta dilatation I77.810 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 Laterality: right Recurrent skin melanoma C43.9 Anxiety F41.9 Smoker F17.200 Obesity (BMI 30-39.9) E66.9 Additional Codes PHQ-9 - 53705 - PHQ-9 Billing: Yes ([id number]) Assessment & Plan Assessment & Plan (1) Preoperative examination: Code(s): Z01.818 - Encounter for other preprocedural examination Category: Medical Plan: Patient currently presents with acceptable risks for planned low cardiac risk p rocedure He was not able to get his follow-up labs done prior to his appointment today but his most recent labs done back in November 2023 were within acceptable range He also had a grossly normal echocardiogram done a couple of months ago in January 2024 (2) Cataract of right eye: Code(s): H26.9 - Unspecified cataract Category: Medical Qualifiers: Cataract type: age-related Age-related cataract type: unspecified Qualified Code(s): H25.9 - Unspecified age-related cataract Plan: He is scheduled for cataract extraction/phacoemulsification with IOL of the right eye under MAC next week on 03/13/[address] Gomez Chan (3) Benign essential hypertension: Code(s): I10 - Essential (primary) hypertension Category: Medical Plan: Reinforced low sodium diet - goal is systolic BP of at least 140 mm or less Continue Lisinopril 5 mg QD He is reminded to continue monitoring his blood pressure regularly (4) Pure hypercholesterolemia: Code(s): E78.00 - Pure hypercholesterolemia, unspecified Category: Medical Plan: Patient was not able to get his follow-up labs done prior to his appointment today Reinforced low cholesterol diet Continue Atorvastatin 80 mg QD - his dose was reportedly increased to 80 mg tamanna ly by his doctor at the [facility] last year Will have patient recheck his labs and fasting lipids in 4 months for follow up - his previous lab orders are updated and will just have him use these orders were his next lab draw in 4 months (5) Impaired fasting glucose: Code(s): R73.01 - Impaired fasting glucose Category: Medical Plan: His HgbA1c was normal at 5.4% when previously checked a few months ago Reinforced low calorie diet/exercise as tolerated (6) Exertional dyspnea: Code(s): R06.09 - Other forms of dyspnea Category: Medical Plan: This is most likely due to physical decompensation and partly related to his age He was sent for echocardiogram for further evaluation and echocardiogram done a couple of months ago in January 2024 revealed (+) normal left ventricular size and systolic function, with the visually estimated ejection fraction between 55- 60%. 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: Comment: In remission Code(s): C83.39 - Diffuse large B-cell lymphoma, extranodal and solid organ sites Category: Medical Plan: S/P laparoscopic small bowel resection on 09/14/20 - pathology reportedly came out as?non-Hodgkin's B-cell lymphoma He completed chemotherapy with R-CHOP and had Port-a-cath eventually removed (Tx from 11/02/2020 to 02/15/2021) He was recently seen by Oncology for follow-up and patient currently remains in remission Follow up with oncology as scheduled for continuing surveillance (9) Internal jugular vein thrombosis: Code(s): I82.C19 - Acute embolism and thrombosis of unspecified internal jugular vein Category: Medical Qualifiers: Laterality: right Qualified Code(s): I82.C11 - Acute embolism and thrombosis of right internal jugular vein Plan: Venous doppler done following tunneled port removal revealed the persistence of a thrombus in the right IJ Right upper extremity US last done in December 2021 revealed NO DVT He has been taken off Apixaban 5 mg BID and currently remains only on low dose Aspirin 81 mg QD (10) Recurrent skin melanoma: Code(s): C43.9 - Malignant melanoma of skin, unspecified Category: Medical Plan: S/P excisional surgery on the nose with [facility] Follow up with [facility] as scheduled for continuing surveillance (11) Anxiety: Code(s): F41.9 - Anxiety disorder, unspecified Category: Medical Plan: Continue Lorazepam 0.5 mg QD PRN and Bupropion 150 mg QD (12) Smoker: Code(s): F17.200 - Nicotine dependence, unspecified, uncomplicated Category: Social Hx Plan: Patient is counseled again on smoking cessation (13) Obesity (BMI 30-39.9): Code(s): E66.9 - Obesity, unspecified Category: Medical Plan: Reinforced diet/exercise as tolerated/lose weight - he has gained some weight since his last visit Plan Patient currently appears to be medically optimized and has no contraindication to undergo planned low cardiac risk ophthalmic procedure next week on 03/13/2024 - he is medically cleared for his upcoming right eye cataract surgery Follow up in 4 months
--- OUTSIDE RECORDS SUMMARY | 2024-03-12 09:30 | XMS_ITS ---
Author Organization [facility] Address [address] [place] [address] Care Team Providers Care Rn Float Name Role Phone Gabriel MONTGOMERY, [place] Primary Care Provider Raquel Ruelas Unavailable [phone] Allergies No Known Allergies REASON FOR VISIT Painful nail(s) aggravated by shoes causing difficulty standing/walking Medications Medication SIG (Take, Route, Frequency, Duration) Notes Start Date End Date Status Atorvastatin Calcium 40 MG 1 tablet Orally Once a day for 30 day(s) Active buPROPion HCl ER (Smoking Det) 150 MG 1 tablet in the morning Orally Once a day for 30 day(s) Active Lisinopril 5 MG 1 tablet Orally Once a day for 30 day(s) Active Ciclopirox Olamine 0.77 % 1 application Externally Twice a day for 30 days Active Apixaban 5 MG as directed Orally Not-Taking PreserVision AREDS 2 Active Multivitamin Active Social History Tobacco Use: Social History Observation Description Date Details (start date - stop date) Current Smoker 04/02/1975 - NA Tobacco Use/Smoking Question Answer Notes Are you a: current smoker When did you start smoking? 04/02/1975 How often do you smoke cigarettes? every day How many cigarettes a day do you smoke? 5 or les s How soon after you wake up d o you smoke your first cigarette? 6-30 minutes Additional Findings: Tobacco User Light cigarett e smoker ((1-9 cigs/day) Alcohol Screen Question Answer Notes Did you have a drink contain ing alcohol in the past year? Yes How often did you have a dri nk containing alcohol in the past year? Monthly or less (1 point) Points 1 Interpretation Negative Tobacco use other than smoking: Question Answer Notes Are you an other tobacco user? No Vital Signs Height 5 ft 9 in in 01/25/2024 Weight 200 lbs 01/25/2024 BMI 29.53 kg/m2 01/25/2024 Encounters Encounter Location Date Provider Diagnosis [facility] [place] [address] [place] [address] 01/25/2024 Raquel Smith Onychomycosis B35.1 ; Pain in right toe(s) M79.674 and Pain in left toe(s) M79.675 Assessments Encounter Date Diagnosis (ICD Code) Assessment Notes Treatment Notes Treatment Clinical Notes Section Notes 01/25/2024 Onychomycosis (ICD-10 - B35.1) 01/25/2024 Pain in right toe(s) (ICD-10 - M79.674) 01/25/2024 Pain in left toe(s) (ICD-10 - M79.675) Plan Of Treatment Next Appt Details Follow Up: 2 Months, Reason: Provider Name:Raquel castillo, 04/18/2024 12:15:00 PM, [address] [place], [address], Procedure Notes * Category Sub-Category Detail Notes Debride Nail 6-10 Nail debridement Performance o f this nail treatment by a nonprofessional would put this patients foot and overall health at risk. Therefore, nail debridement was performed extensively to reduce/remove overall nail length, girth, thickness, subungual debris, and necrotic tissue, by manual and/or electrical means through the use of a nail nipper and/or dremel-type magazine grinder loader, to a more viable healthy nail plate or bed tissue 6-10. Silver nitrate used for any petechial bleeding as necessary. Definitive antifungal treatment options have been reviewed and discussed with the patient. The patient chooses, no pharmaceutical tx - 85698 Progress Notes * Robert MCINTYREDOB:1945 (78 yo M)Acc No.[id number]:01/25/2024 Progress Note Patient:?Robert Mcintyre Provider:?Raquel Smith DPM :1945???Age:78 Y???Sex:Male Gabriel e:01/25/2024 Address:[address] [place], [place] [id number] Pcp:Zachery Rios MD Subjective: * Chief Complaints: * ???Painful nail(s) aggravate d by shoes causing difficulty standing/walking * HPI: ???Painful Nails:?Pt States Last PCP Visit:?Date:?11/01/2023 * ROS:?General/Constitutional:?Nausea?denies.?Vomiting?denies.?Hunger Thirst?denies.?Loss appetite?denies.?Chills?denies.?Fatigue?denies.?Fever?denies.?Night Sweats?denies.?Unexplained weight loss?denies.?Unexplained weight gain?denies.?HEENTM:?Dentures?denies.?Dizziness?denies.?Glasses/contacts?denies.?Retinopathy?de nies.?Blurred/double vision?denies.?TMJ?denies.?Discharge/drainage?denies.?Implants?denies.?Sore throat?denies.?Dental implants?denies.?Hard of hearing ?denies.?Difficulty chewing/swallowing/speaking?denies.?Nose bleeds?denies.?Sore mouth?denies.?Respiratory:?On Oxygen?denies.?Pneumonia/pleurisy?denies.?Bronchitis?denies.?Emphysema?denies.?C oughing?denies.?Cough blood?denies.?Shortness of breath?denies.?Wheezing?denies.?Cardiovascular:?Pacemaker?denies.?MVP?denies.?WPW?denies.?CHF?denies.?Heart attack?denies.?Septal defect?denies.?Rapid beat?denies.?Chest pain ?denies.?Atrial Fib.?denies.?Murmur/Palpitations?denies.?Gastrointestinal:?Hemorrhoids?denies.?Stomach/Abdominal pain?denies.?Dark blood stool?denies.?Irritable bowel ?denies.?Constipation?denies.?Diarrhea?denies.?Hematology:?Swelling?denies.?Clots?denies.?Varicose Veins?denies.?Bruising?denies.?Bleeding problem?denies.?Genitourinary:?Blood urine?denies.?Frequent/Painfu/urination/bladder control?denies.?Kidney stones?denies.?Infection (UTI)?denies.?Nephropathy?denies.?sex trans dis (STD)?denies.?Prostate?denies.?Musculoskeletal:?Hammertoes?denies.?Bunions?denies.?Back Pain?denies.?Muscle Cramps/ Resting?denies.?Muscle cramps / walking?denies.?Generalized aches and pains?denies.?Weakness?denies.?Integ.:?Snyder?denies.?Scars?denies.?Corns/calluses?denies.?Ingrown nails?denies.?Painful nails?denies.?Open Sores?denies.?Rashes?denies.?Neurologic:?Difficulty sleeping?denies.?Brain disorder?denies.?Numbness?denies.?Balance trouble?denies.?Confusion?denies.?Fainting/blackouts?denies.?Tingling?denies.?Tr emors?denies.? * Medical History:? * Surgical History:?melanoma 2 017, 2018lymphoma 2020 * Hospitalization/Major Diagno stic Procedure:?Denies Past Hospitalization * Family History:?Mother: dece ased, diagnosed with Other malignant neoplasm of unspecified site.?Father: .?Siblings: diagnosed with Other malignant neoplasm of unspecified site.? * Social History:?Tobacco Use:?Tobacco Use/Smoking?Are you a:?current smoker ?When did you start smoking??04/02/1975 ?How often do you smoke cigarettes??every day ?How many cigarettes a day do you smoke??5 or less ?How soon after you wake up do you smoke your first cigarette??6-30 minutes ?Additional Findings: Tobacco User?Light cigarette smoker ((1-9 cigs/day) ?Tobacco use other than smoking?Are you an other tobacco user??No ???Drugs/Alcohol:?Drugs?Have you used drugs other than those for medical reasons in the past 12 months??No ?Alcohol Screen?Did you have a drink containing alcohol in the past year??Yes ?How often did you have a drink containing alcohol in the past year??Monthly or less (1 point) ?Points?1 ?Interpretation?Negative ???Miscellaneous:?Caffeine: yes, frequency:, 2-3 cups per day. ?Children: yes, 2. ?Exercise: yes, gardening/yard work, walking. ?Marital status: . ?Occupation: Retired/ [employer]. * Medications:?TakingPreserVis ion AREDS 2 Multivitamin Atorvastatin Calcium 40 MG Tablet 1 tablet Orally Once a daybuPROPion HCl ER (Smoking Det) 150 MG Tablet Extended Release 12 Hour 1 tablet in the morning Orally Once a dayLisinopril 5 MG Tablet 1 tablet Orally Once a dayCiclopirox Olamine 0.77 % Cream 1 application Externally Twice a dayTaking PreserVision AREDS 2 Taking Multivitamin Taking Atorvastatin Calcium 40 MG Tablet 1 tablet Orally Once a dayTaking buPROPion HCl ER (Smoking Det) 150 MG Tablet Extended Release 12 Hour 1 tablet in the morning Orally Once a dayTaking Lisinopril 5 MG Tablet 1 tablet Orally Once a dayTaking Ciclopirox Olamine 0.77 % Cream 1 application Externally Twice a dayNot-Taking/PRNApixaban 5 MG Tablet as directed Orally Medication List reviewed and reconciled with the patientNot-Taking/PRN Apixaban 5 MG Tablet as directed Orally Medication List reviewed and reconciled with the patient * Allergies:?N.K.D.A.yes[Aller gies Verified] Objective: * Vitals:?Ht: 5 ft 9 in, Wt: 2 00, BMI: 29.53, Shoe size: 10-10.5, Ht-cm: 175.26 cm, Wt-k.72 kg. * Examination: ???Nails: ?NAILS are:?Elongated, overgrown, dystrophic, lytic, greater than 3mm thick, discolored and friable with crumbly malodorous subungual debris with dull to no pain on palpation due to neuropathy 1-5 B/L.? Assessment: * Assessment: 1.?Pain in right toe(s) - M7 9.674?2.?Onychomycosis - B35.1?3.?Pain in left toe(s) - M79.675? Plan: * Treatment: * Procedures:?Debride Nail 6-10:?Nail debridement?Performance of this nail treatment by a nonprofessional would put this patients foot and overall health at risk. Therefore, nail debridement was performed extensively to reduce/remove overall nail length, girth, thickness, subungual debris, and necrotic tissue, by manual and/or electrical means through the use of a nail nipper and/or dremel-type magazine grinder loader, to a more viable healthy nail plate or bed tissue 6-10. Silver nitrate used for any petechial bleeding as necessary. Definitive antifungal treatment options have been reviewed and discussed with the patient. The patient chooses, no pharmaceutical tx - [id number].? * Procedure Codes:?97711 DEBRI DE NAIL, 6 OR MORE * Follow Up:?2 Months * Images: * Sign off status: Completed true * Provider:?Raquel Smith DPM Date:? Generated for Salvador guajardo/Flori/Yecenia on:?03/12/2024 09:30 AM EST History and Physical Notes * HPI (History of Present Illness) Category Sub-Category Detail Notes Category Not es Painful Nails Pt States Last PCP Visit: Date:: 11/01/2023 Examination Category Sub-Category Detail Notes Category Not es Nails NAILS are: Elongated, overg rown, dystrophic, lytic, greater than 3mm thick, discolored and friable with crumbly malodorous subungual debris with dull to no pain on palpation due to neuropathy 1-5 B/L
--- OUTSIDE RECORDS SUMMARY | 2024-03-12 09:30 | XMS_ITS ---
Author Organization [facility] Address [address] [place] [address] Care Team Providers Care Solar Installation Crew Supervisor Name Role Phone Gabriel MONTGOMERY, [place] Primary Care Provider Unava ilRaquel Callahan [phone] Encounters Encounter Location Date Provider Diagnosis [facility] [address] [place] [address] 11/16/2023 Raquel Smith Plan Of Treatment Next Appt Details Provider Name:Raquel castillo, 04/18/2024 12:15:00 PM, [address] [place], [address], Progress Notes * Robert MCINTYREDOB:1945 (78 yo M)Acc No.[id number]:11/16/2023 Patient:?Robert Mcintyre :1945???Age:78 Y???Sex:Male Address:[address] [place] [address], [address] * true * Date:? Generated for Printi ng/Faargenisg/eTransmitting on:?03/12/2024 09:30 AM EST
--- OUTSIDE RECORDS SUMMARY | 2024-03-12 09:31 | XMS_ITS | Patient Health Record ---
Author Organization [facility] Address [address] [place] [address] Care Team Providers Care General Ledger Accountant Name Role Phone Gabriel MONTGOMERY, [place] Primary Care Provider Raquel Ruelas Unavailable [phone] Allergies No Known Allergies Reason For Referral No Information Medications Medication SIG (Take, Route, Frequency, Duration) Notes Start Date End Date Status PreserVision AREDS 2 Active Multivitamin Active Atorvastatin Calcium 40 MG 1 tablet Orally [...] Apixaban 5 MG as directed Orally Not-Taking Social History Tobacco Use: Social History Observation [...] Are you an other tobacco user? No Problems Problem Type SNOMED Code ICD Code Onset Dates Problem Status W/U Status Risk Notes Problem [id number] Neuropathy (G62.9) Active confirmed Vital Signs Blood pressure diastolic 80 mm Hg 11/16/2023 Height 5 ft 9 in in 01/25/2024 Blood pressure systolic 120 mm Hg 11/16/2023 Weight 200 lbs 01/25/2024 BMI 29.53 kg/m2 01/25/2024 Encounters Encounter Location Date Provider Diagnosis [address] [address] 03/23/2023 Raquel Perica Tinea unguium B35.1 ; Pain in toe of right foot M79.674 ; Pain in toe of left foot M79.675 and Neuropathy G62.[address] [address] 06/22/2023 Raquel Perica Tinea unguium B35.1 ; Tinea pedis of both feet B35.3 ; Pain in toe of right foot M79.674 ; Pain in toe of left foot M79.675 and Neuropathy G62.[address] [address] 08/24/2023 Raquel Perica Tinea unguium B35.1 ; Tinea pedis of both feet B35.3 ; Pain in toe of right foot M79.674 ; Pain in toe of left foot M79.675 and Neuropathy G62.[address] [address] 11/16/2023 Raquel Perica Tinea unguium B35.1 ; Tinea pedis of both feet B35.3 ; Pain in toe of right foot M79.674 ; Pain in toe of left foot M79.675 and Neuropathy G62.[address] [address] 01/25/2024 Raquel Perica Onychomycosis B35.1 ; Pain in right toe(s) M79.674 and Pain in left toe(s) M79.[address] [facility] [address] 08/08/2023 Raquel Smith [facility] [address] [address] 11/16/2023 Raquel Smith Assessments Encounter Date Diagnosis (ICD Code) Assessment Notes Treatment Notes Treatment Clinical Notes Section Notes 03/23/2023 Tinea unguium (ICD-10 - B35.1) 06/22/2023 Tinea unguium (ICD-10 - B35.1) 06/22/2023 Tinea pedis of both feet (ICD-10 - B35.3) 08/24/2023 Tinea unguium (ICD-10 - B35.1) 11/16/2023 Tinea unguium (ICD-10 - B35.1) 01/25/2024 Pain in right toe(s) (ICD-10 - M79.674) 01/25/2024 Onychomycosis (ICD-10 - B35.1) 11/16/2023 Tinea pedis of both feet (ICD-10 - B35.3) 01/25/2024 Pain in left toe(s) (ICD-10 - M79.675) 08/24/2023 Tinea pedis of both feet (ICD-10 - B35.3) 06/22/2023 Pain in toe of right foot (ICD-10 - M79.674) 03/23/2023 Pain in toe of right foot (ICD-10 - M79.674) 03/23/2023 Pain in toe of left foot (ICD-10 - M79.675) 06/22/2023 Pain in toe of left foot (ICD-10 - M79.675) 11/16/2023 Pain in toe of right foot (ICD-10 - M79.674) 08/24/2023 Pain in toe of right foot (ICD-10 - M79.674) 08/24/2023 Pain in toe of left foot (ICD-10 - M79.675) 11/16/2023 Pain in toe of left foot (ICD-10 - M79.675) 06/22/2023 Neuropathy (ICD-10 - G62.9) 03/23/2023 Neuropathy (ICD-10 - G62.9) 11/16/2023 Neuropathy (ICD-10 - G62.9) 08/24/2023 Neuropathy (ICD-10 - G62.9) Plan Of Treatment Next Appt Details Provider Name:Raquel Castillo Swathi castillo, 04/18/2024 12:15:00 PM, [address] [place] [address], [address], Insurance Providers Payer Name Payer Address Payer Phone Subscriber Number Group Number Insured Name Patient Relationship to Insured Coverage Start Date Coverage End Date Medicare National Govt [facility] [address] [facility] [place] [address] [id number] Robert Mcintyre Self - patient is the insured [employer] Preferred [address] [place] [address] [id number] Robert Mcintyre Self - patient is the insured Medical (General) History Medical History History ICD Code Arthritis Back,Hip,and Knee pain Cancer Cataracts High blood pressure Macular degeneration Numbness Surgical History Surgery Date(Month/Year) melanoma 2016, 2018 lymphoma 2020
--- OUTSIDE RECORDS SUMMARY | 2024-03-12 09:31 | XMS_ITS ---
Author Name [facility] Organization [facility] Address [address] [place] [address] Care Team Providers Care Assistant Broker Name Role Phone NATALIE MASON Primary Care [...] PART A Jul 02, 2011 PART A [id number] ADRIANA JOSÉ PATIENT MEDICARE (WNR) MEDICARE (M) PART B Jul 02, 2011 PART B [id number] ADRIANA JOSÉ PATIENT MEDICARE (WNR) MEDICARE (M) PART A Jul 02, 2011 PART A [id number] ADRIANA JOSÉ PATIENT MEDICARE (WNR) MEDICARE (M) PART B Jul 02, 2011 PART B [id number] ADRIANA JOSÉ PATIENT MEDICARE (WNR) MEDICARE (M) PART A Jul 02, 2011 PART A [id number] [phone] ADRIANA JOSÉ PATIENT MEDICARE (WNR) MEDICARE (M) PART A Jul 02, 2011 PART A [id number] ADRIANA JOSÉ PATIENT MEDICARE (WNR) MEDICARE (M) PART B Jul 02, 2011 PART B [id number] [id number] [phone] ADRIANA JOSÉ PATIENT MEDICARE (WNR) MEDICARE (M) PART B Jul 02, 2011 PART B [id number] [phone] ADRIANA JOSÉ PATIENT [employer] [employer] ARE SUPPL EMENT Jul 02, 2011 CORE [id number] ADRIANA JOSÉ PATIENT [employer] ARE PREFE RRED Apr 02, 2015 CORE [id number] ADRIANA JOSÉ PATIENT [employer] ARE SUPPL EMENT Jul 02, 2011 CORE [id number] ADRIANA JOSÉ PATIENT Selected Encounter This section includes the information on record at [facility] for the Encounter. Date/Time Encounter Type Encounter Description Reason Pro vider Source Mar 29, 2023 04:15 PM Outpatient Encounter ADMIN PAT ACTIVTIES (MASNONCT) IHE Encounter Template Text not used by [facility] Plan of Treatment: Future Appointments (+ 6 months) and Future Tests (+/- 45 days) The Plan of Treatment section includes future care activities for the patient from all [place] treatmentfacilities. This section includes future appointments and future orders which are active, pending or scheduled. Future Appointments This section includes appointments that were scheduled to occur 6 months from the date of the Encounter, up to a maximum of 20 appointments. The data comes from all [place] treatment facilities. Appointment Date/Time Appointment Type Appointme nt Facility Name Apr 09, 2023 11:00 AM AMBULATORY - MEDICINE [facility] August 02, 2023 01:00 PM [facility] [place] MEDICINE [place] [facility] [place] [facility] August 02, 2023 01:30 PM [facility]ORY - MEDICINE [facility] [place] [facility] August 23, 2023 01:50 PM AMBULATORY - MEDICINE [facility] Lab Results: +/- 30 days of the encounter This section includes the Chemistry and Hematology Lab Results on record with [facility] for the patient. Radiology Reports and Pathology Reports are provided separately, in subsequent sections. Lab Results This section contains the Chemistry/Hematology Results that were resulted 30 days before or 30 daysafter the date of the Encounter. Date/Time Source Result Type Result - Unit Interpretation Reference Range Comment Apr 09, 2023 11:43 AM [facility] HEMOGLOBIN A1C PANEL Specimen Type: BLOOD Comment: Values obtained from A1C measurements can vary. For atypical A1C assays, a reported value of 7.0 could actually be between 6.72 and 7.28 if measured by a reference method. A reported value of 9.0 could actually be between 8.73 and 9.27. Ref: http://www.ngs p.org/CAPdata. asp Ordering Provider: NATALIE SMITH Report Released Date/Time: Mar 27, 2023 03:03 PM Reporting Lab: [address] [address] Performing Lab: [address] [address] HEMOGLOBIN A1C 5.4 4.0-5.6 Apr 09, 2023 11:43 AM [facility] TSH Specimen Type: SERUM Comment: Hemolysis present analysis cannot be performed. Hemolysis present may falsly elevate Potassium Total and Direct Bili, Iron, AST, %Fe. Ordering Provider: NATALIE SMITH Report Released Date/Time: Mar 27, 2023 03:03 PM Reporting Lab: [facility] [address] [facility] [address] Performing Lab: [address] [address] TSH 1.16 u[IU]/mL 0.35-5.00 Apr 09, 2023 11:43 AM [facility] LIPID PANEL FASTING Specimen Type: SERUM Comment: Hemolysis present analysis cannot be performed. Hemolysis present may falsly elevate Potassium Total and Direct Bili, Iron, AST, %Fe. Ordering Provider: NATALIE SMITH Report Released Date/Time: Mar 27, 2023 03:03 PM Reporting Lab: [address] [address] Performing Lab: [address] [address] CHOLESTEROL 174 mg/dL TRIGLYCERIDE 91 mg/dL 0-150 LDL calculated 112 mg/dL 0-129 CHOL/HDL 4.0 HDL CHOLESTEROL 44 mg/dL 40-60 Apr 09, 2023 11:43 AM [facility] LIVER FUNCTION Specimen Type: SERUM Comment: Hemolysis present analysis cannot be performed. Hemolysis present may falsly elevate Potassium Total and Direct Bili, Iron, AST, %Fe. Ordering Provider: NATALIE SMITH Report Released Date/Time: Mar 27, 2023 03:03 PM Reporting Lab: [address] [address] Performing Lab: [address] [address] PROTEIN,TOTAL 6.8 g/dL 6.0-8.3 ALBUMIN 3.8 g/dL 3.5-5.0 ALKALINE PHOSPHATASE 101 U/L 40-150 AST 20 U/L 5-34 ALT 23 U/L BILIRUBIN, TOTAL comment mg/dL 0.2-1.2 Apr 09, 2023 11:43 AM [facility] BASIC METABOLIC PANEL (fasting) Specime n Type: SERUM Comment: Hemolysis present analysis cannot be performed. Hemolysis present may falsly elevate Potassium Total and Direct Bili, Iron, AST, %Fe. Ordering Provider: NATALIE SMITH Report Released Date/Time: Mar 27, 2023 03:03 PM Reporting Lab: [address] [address] Performing Lab: [address] [address] UREA NITROGEN 19 mg/dL 7-25 GLUCOSE 84 mg/dL 65-100 SODIUM 142 mmol/L 135-145 POTASSIUM 4.0 mmol/L 3.5-5.0 CHLORIDE 111 mmol/L H 100-110 CO2 23 meq/L 20-30 CREATININE, Serum 0.99 mg/dL 0.50-1.40 eGFR(CKD-EPI 2020) 78 mL/min >60 Apr 09, 2023 11:43 AM [facility] CBC AND DIFF (AUTO) Specimen Type: BLOOD No comment entered. Ordering Provider: NATALIE SMITH Report Released Date/Time: Mar 27, 2023 03:03 PM Reporting Lab: [facility] [address] [facility] [address] Per[facility]: [facility] [address] [facility] [address] WBC 7.15 10*3/uL 4.50-11.00 RBC 4.89 10*6/uL 4.23-5.66 HGB 15.9 g/dL 12.8-17 HCT 47.0 39.2-50.4 MCV 96.1 fL 82-99 MCHC 33.8 g/dL 30.8-35.1 PLT 207 10*3/uL 140-360 RDW-CV 13.2 12.0-16.0 [place], Abs 0.57 10*3/uL 0.30-1.10 MCH 32.5 pg 26.2-32.6 Neut % 63.8 43.7-75.8 Lymph % 19.3 14.0-42.3 [place] % 8.0 5.1-13.7 Eos % 7.8 H 0.4-6.8 Baso % 0.8 0.1-2.0 Neut, Abs 4.56 10*3/uL 2.20-7.60 Lymph, Abs 1.38 10*3/uL 1.00-3.20 Eos, Abs 0.56 10*3/uL H 0.03-0.44 Baso, Abs 0.06 10*3/uL 0.01-0.13 Immature Gran % 0.3 0.0-0.7 Immature Gran, Abs 0.02 10*3/uL 0.00-0.06 Social History: Smoking Status (Most current) and Tobacco Use (All prior to encounter date) This section includes the most current, and the historical, smoking and tobacco- related health factors from the [facility] facility where the Encounter took place. Current Smoking Status This section includes the most current smoking, or tobacco-related health factor, from the [facility] facility where the Encounter took place. Date/Time Current Smoking Status Comment Cris ity May 11, 2022 10:21 AM VA-TOBACCO USER EVERY DAY [facility] Tobacco Use History This section includes a history of the smoking, or tobacco-related health factors, that were collected on or before the date of the Encounter. The data comes from the [place] facility where the Encounter took place. Date/Time Smoking Status/Tobacco Use Comment F acility May 11, 2022 10:21 AM [facility] ADVICE [facility] May 11, 2022 10:21 AM VA-TOBACCO USE HEAD [facility] May 11, 2022 10:21 AM [facility]TOBACCO USE [facility] May 11, 2022 10:21 AM VA-TOBACCO USE WI 30 MIN OF WA[facility] May 11, 2022 10:21 AM VA-TOBACCO USER EVERY DAY [facility] Encounter Notes: All associated encounter notes This section contains the clinical notes associated to the Encounter. Date/Time Encounter Note(s) Provider Source Mar 29, 2023 04:15 PM PHARMACY NOTE: LOCAL TITLE: PHARMACY CUSTOMER CARE MEDICATION RENEWAL STANDARD TITLE: PHARMACY NOTE DATE OF NOTE: MAR 29, 2023@16:15 ENTRY DATE: MAR 29, 2023@16:15:37 AUTHOR: JOSELUIS SAL EXP COSIGNER: URGENCY: STATUS: COMPLETED Date: Mar Division: [place] Pt referred by Pharmacy Call Center for medication renewal: Non-controlled/maintena nce medication Medications requested: [id number] LISINOPRIL 5MG TAB Defer to primary care provider To be mailed . Please review and renew if appropriate. *This note was generated by [facility] Customer Care. If you have any questions or need assistance, do not contact this author. Please refer all questions to your local, on-site pharmacy departments. /haritha/ JOSELUIS SAL CPhT [place], [place]/Pharmacy Customer Care Signed: 03/29/2023 16:16 Receipt Acknowledged By: 03/29/2023 16:35 /es/ SHEKHAR BYRD PA-C STAFF PHYSICIAN PATIENT ADMITTING CLERK for PEACEELIANE Cholo MASON 03/29/2023 16:18 /es/ PAIGE VILLEGAS RN REGISTERED NURSE [facility]SELUIS SAL [facility]
--- OUTSIDE RECORDS SUMMARY | 2024-03-12 09:31 | XMS_ITS | Continuity of Care Document ---
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 It does not include entries that were removed or entered in error. 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 Active Condition May 15, 2021 Entered By: NATALIE ZACARIAS Comment: 05/2021 -f/w Dr Prakash hem onc - provoked - started on lovenoxFeb 2021 Entered By: NATALIE ZACARIAS Comment: Right IJ Port-A-Cath in place [place] Basal cell carcinoma of face (SNOMED CT 360626310) Active Condition [facility] Benign essential hypertension (SNOMED CT 3466160) Active Condition [place] Benign Prostatic Hypertrophy without Outflow Obstruction (SCT 590085965) Active Condition [place] Body mass index 25-29 - overweight Active Condition [facility] Coronary arteriosclerosis Active Condition [facility] DEPRESSIVE DISORDER Active Condition [place] Drug Hypersensitivity Active Condition Mar 14 7 Entered By: ALEX LY Comment: NSAID (Naprosyn) hypersensivity [facility] family history of melanoma Active Condition [place] H/O Malignant melanoma Active Condition May 04, 2020 Entered By: NATALIE ZACARIAS Comment: nose x2, s/p surgery- f/w [place] dermatology [place] HEMATURIA Active Condition [place] History of adenomatous polyp of colon Active Condition [place] Hyperlipidemia (SNOMED CT 68266460) Active Condition [place] Impaired fasting glucose (SNOMED CT 116078375) Active Condition [place] Light tobacco smoker (SNOMED CT 141385076714018) Active Condition [facility] Non-Hodgkin lymphoma Active Condition May 15, 2021 Entered By: NATALIE ZACARIAS Comment: 08/2020 Diffuse large B-cell lymphomaFeb 2021 Entered By: NATALIE ZACARIAS Comment: s/p small bowel resection 08/2020Feb 2021 Entered By: NATALIE ZACARIAS Comment: s/p R CHOP -6 cycles completed 03/2021Feb 2021 Entered By: NATALIE ZACARIAS Comment: f/w hem/onc [facility] McFeb 2021 Entered By: NATALIE ZACARIAS Comment: R IJ vein- [place] Osteoarthrosis, unspecified whether generalized or localized, involving unspecif Active Condition Oct 31 007 Entered By: CLAIRE BRISCOE Comment: bilateral knees[mild DJD] unrelated to service [facility] Rotator cuff (capsule) sprain or strain (ICD-9-CM 840.4) Active Condition [facility] Spondylosis Active Condition Jan 11, 2005 Entered By: DALE GUSTAFSON Comment: spondylolysis [place] Squamous cell carcinoma of skin Active Condition [facility] Unspecified internal derangement of knee (ICD-9-CM 717.9) Active Condition [facility] Elevated blood pressure reading without diagnosis of hypertension (ICD-9-CM 796. Inactive Condition 03/11/2015 [facility] Hypersensitivity reaction (ICD-9-CM 995.3) Inactive Condition 03/29/2014 [facility] Osteoarthrosis involving the knee (ICD-9-CM 715.98) Inactive Condition 08/10/2015 [facility] Diagnosis: ICD-10-CM Z00.8 Encounter for other general examination Active Diagnosis [place] Diagnosis: ICD-10-CM H40.013 Open angle with borderline findings, low risk, bilateral Active Diagnosis [facility] Diagnosis: ICD-10-CM C43.9 Malignant melanoma of skin, unspecified Active Diagnosis [place] Diagnosis: ICD-10-CM Z46.0 Encounter for fit/adjst of spectacles and contact lenses Active Diagnosis [facility] Medications Combined list of outpatient medications from Department of Defense and Veterans Affairs facilities.Medications provided include 1) outpatient medications from the last 15 months, and 2) patient-reported medications. Medication Details Route Status Patient Instructions Prescription Expires Prescription Number Last Dispense Date Ordering Provider Order Date Order Qty Source ASPIRIN 81MG TAB,EC TAKE ONE TABLET BY MOUTH ONCE DAILY ORAL ACTIVE NATALIE JACOBO 2023 [place] ATORVASTATI N CA 40MG TAB TAKE ONE TABLET BY MOUTH EVERY EVENING FOR CHOLESTE ROL ORAL DISCONT INUED BY PROVIDE R 05/12/2023 [id number] NATALIE JACOBO M 2022 90 [place] BUPROPION HCL 150MG 12HR TAB,SA TAKE ONE TABLET BY MOUTH ONCE DAILY ORAL ACTIVE 05/13/2024 [id number] 4 NATALIE JACOBO 2023 90 [place] BUPROPION HCL 150MG 12HR TAB,SA TAKE ONE TABLET BY MOUTH ONCE DAILY ORAL DISCONT INUED 05/10/2023 [id number] 3 NATALIE JACOBO M 2022 90 [place] DOCUSATE NA 50MG/SENNOS IDES 8.6MG TAB TAKE 1 TABLET BY MOUTH ONCE DAILY FOR CONSTIPA TION ORAL ACTIVE 02/07/2025 [id number] 4 NATALIE JACOBO M 2023 100 [place] KETOROLAC TROMETHAMIN E 0.5% SOLN,OPH INSTILL 1 DROP INTO THE RIGHT EYE THREE TIMES A DAY FOR 3 WEEKS FOLLOWIN G CATARACT SURGERY OPHTHA LMIC ACTIVE 02/08/2025 [id number] [place],DA VID R 2023 5 [facility] LISINOPRIL 5MG TAB TAKE ONE TABLET BY MOUTH ONCE DAILY TO CONTROL BLOOD PRESSURE ORAL ACTIVE 01/04/2025 [id number] 4 RA ADIS BRENNON REDMONDHRYN 2023 90 [facility] LISINOPRIL 5MG TAB TAKE ONE TABLET BY MOUTH ONCE DAILY TO CONTROL BLOOD PRESSURE ORAL DISCONT INUED 03/29/2024 [id number] JORGE BYRD 2022 90 [facility] LISINOPRIL 5MG TAB TAKE ONE TABLET BY MOUTH ONCE DAILY TO CONTROL BLOOD PRESSURE ORAL DISCONT INUED 05/12/2023 [id number] 3 NATALIE JACOBO 2022 90 [facility] MULTIVIT/OP HTH AREDS2/LUTE IN/ZEAXANTH IN CAP/TAB TAKE 1 CAPSULE BY MOUTH TWICE DAILY IN THE MORNING AND EVENING, WITH FOOD ORAL ACTIVE 06/07/2024 [id number] MARIELLE,NO AH B 2023 120 [facility] MULTIVIT/OP HTH AREDS2/LUTE IN/ZEAXANTH IN CAP/TAB TAKE 1 CAPSULE BY MOUTH TWICE DAILY IN THE MORNING AND EVENING, WITH FOOD ORAL 02/02/2023 [id number] MARIELLE,NO AH B 2021 [facility] MULTIVITAMI NS W/MINERALS TAB TAKE ONE TABLET BY MOUTH ORAL ACTIVE DASHA GUSTAFSON 2004 [facility] POLYETHYLEN E GLYCOL 3350 PWDR,ORAL TAKE 17 GRAMS(FI LL CAP TO 17GM LINE) BY MOUTH ONCE DAILY NEEDED FOR CONSTIPA TION [MIX WITH 4 TO 8OZ. OF BEVER[place] ] ORAL 08/03/2023 [id number] 4 NATALIE JACOBO M 2022 510 [place] PREDNISOLON E ACETATE 1% SUSP,OPH INSTILL 1 DROP INTO THE RIGHT EYE FOUR TIMES A DAY FOR 3 WEEKS FOLLOWIN G SURGERY. SHAKE WELL. OPHTHA LMIC ACTIVE 02/08/2025 [id number] 4 SAMRA LAUGHLIN R 2023 5 [facility] ROSUVASTATI N CA 40MG TAB TAKE ONE TABLET BY MOUTH ONCE DAILY FOR CHOLESTE ROL REPLAC ES ATORVAST ATIN ORAL ACTIVE 02/07/2025 [id number] 4 NATALIE JACOBO 2023 90 [place] ROSUVASTATI N CA 40MG TAB TAKE ONE TABLET BY MOUTH ONCE DAILY FOR CHOLESTE ROL REPLAC ES ATORVAST ATIN ORAL DISCONT INUED 05/28/2024 [id number] NATALIE JACOBO 2023 90 [facility] Immunizations Combined list of available immunizations from the Department of Defense and Veterans Affairs facilities. Immunization Series Date Given Administered By Site Reaction Lot Number CVX Code Drug It Sales Consultant Status Comments Source INFLUENZA, UNSPECIFIED FORMULATION 2023 88 complet ed [facility] INFLUENZA, UNSPECIFIED FORMULATION 2022 88 complet ed [facility] INFLUENZA, UNSPECIFIED FORMULATION 2021 88 complet ed [facility] COVID-19 (MODERNA), MRNA, LNP-S, BIVALENT BOOSTER, PF, 50 MCG/0.5 ML OR 25MCG/0.25 ML DOSE 2021 229 complet ed [facility] COVID-19 (MODERNA), MRNA, LNP-S, PF, 100 MCG/0.5ML DOSE OR 50 MCG/0.25ML DOSE 3 2021 207 complet ed [facility] COVID-19 (MODERNA), MRNA, LNP-S, PF, 100 MCG OR 50 MCG DOSE 3 2020 207 complet ed [facility] INFLUENZA, UNSPECIFIED FORMULATION 2020 88 complet ed [facility] COVID-19 (MODERNA), MRNA, LNP-S, PF, 100 MCG/0.5 ML DOSE 2 2020 207 complet ed MOD; [id number]; 1 [place] COVID-19 (MODERNA), MRNA, LNP-S, PF, 100 MCG/0.5 ML DOSE 1 2020 207 complet ed MOD; [id number]; 1 [place] ZOSTER RECOMBINANT 2 2020 187 complet ed [place] ZOSTER RECOMBINANT 1 2019 187 complet ed [place] INFLUENZA, UNSPECIFIED FORMULATION 2019 88 complet ed [facility] TD(ADULT) UNSPECIFIED FORMULATION 2018 139 complet ed [facility] PNEUMOCOCCAL POLYSACCHARID E PPV23 2015 33 complet ed [place] PNEUMOCOCCAL CONJUGATE PCV 13 2014 133 complet ed [place] FLU,3 YRS (HISTORICAL) 2012 88 complet ed [facility] DTAP, UNSPECIFIED FORMULATION 2012 107 complet ed Site: Right Deltoid [place] ZOSTER (HISTORICAL) 2012 121 complet ed NON VA [facility] FLU,3 YRS (HISTORICAL) 2011 88 complet ed [facility] PNEUMOCOCCAL, UNSPECIFIED FORMULATION 2010 109 complet ed [place] TD(ADULT) UNSPECIFIED FORMULATION 2004 JORGE LUIS LEBLANC 139 comple t ed [place] Results Combined list of recent chemistry, hematology and other laboratory results from Department of Defense and Veterans Affairs, ranging from 15 months to all on record, depending upon the facility. Order Name Results Value Reference Range Date Interpretation Specimen Comments Source BASIC METABOLIC PANEL (fasting) UREA NITROGEN [MASS/VOLUM E] IN SERUM OR PLASMA 19 mg/dL 7 - 25 04/09 Specimen Type: SERUM Comment: Hemolysis present analysis cannot be performed. Hemolysis present may falsly elevate Potassium Total and Direct Bili, Iron, AST, %Fe. Ordering Provider: MELVINA MOON Report Released Date/Time: Mar 27, 2023 03:03 PM Reporting Lab: [address] [address] Performing Lab: [address] [address] [facility] BASIC METABOLIC PANEL (fasting) GLUCOSE [MASS/VOLUM E] IN SERUM OR PLASMA 84 mg/dL 65 - 100 04/09 Specimen Type: SERUM Comment: Hemolysis present analysis cannot be performed. Hemolysis present may falsly elevate Potassium Total and Direct Bili, Iron, AST, %Fe. Ordering Provider: MELVINA MOON Report Released Date/Time: Mar 27, 2023 03:03 PM Reporting Lab: [facility] [address] [facility] [address] Performing Lab: [address] [phone] [place], [place] [address] BASIC METABOLIC PANEL (fasting) SODIUM [MOLES/VOLU ME] IN SERUM OR PLASMA 142 mmol/L 135 - 145 04/09 Specimen Type: SERUM Comment: Hemolysis present analysis cannot be performed. Hemolysis present may falsly elevate Potassium Total and Direct Bili, Iron, AST, %Fe. Ordering Provider: MELVINA MOON Report Released Date/Time: Mar 27, 2023 03:03 PM Reporting Lab: [address] [address] Performing Lab: [address] [address] [facility] BASIC METABOLIC PANEL (fasting) POTASSIUM [MOLES/VOLU ME] IN SERUM OR PLASMA 4.0 mmol/L 3.5 - 5.0 04/09 Specimen Type: SERUM Comment: Hemolysis present analysis cannot be performed. Hemolysis present may falsly elevate Potassium Total and Direct Bili, Iron, AST, %Fe. Ordering Provider: MELVINA MOON Report Released Date/Time: Mar 27, 2023 03:03 PM Reporting Lab: [facility] [address] [facility] [address] Performing Lab: [address] [address] [facility] BASIC METABOLIC PANEL (fasting) CHLORIDE [MOLES/VOLU ME] IN SERUM OR PLASMA 111 mmol/L 100 - 110 04/09 H Specimen Type: SERUM Comment: Hemolysis present analysis cannot be performed. Hemolysis present may falsly elevate Potassium Total and Direct Bili, Iron, AST, %Fe. Ordering Provider: MELVINA MOON Report Released Date/Time: Mar 27, 2023 03:03 PM Reporting Lab: [facility] [address] [facility] [address] Performing Lab: [address] [address] [employer] BASIC METABOLIC PANEL (fasting) CARBON DIOXIDE, TOTAL [MOLES/VOLU ME] IN SERUM OR PLASMA 23 meq/L 20 - 30 04/09 Specimen Type: SERUM Comment: Hemolysis present analysis cannot be performed. Hemolysis present may falsly elevate Potassium Total and Direct Bili, Iron, AST, %Fe. Ordering Provider: MELVINA MOON Report Released Date/Time: Mar 27, 2023 03:03 PM Reporting Lab: [facility] [address] [facility] [address] Performing Lab: [address] [address] [employer] BASIC METABOLIC PANEL (fasting) CREATININE [MASS/VOLUM E] IN SERUM OR PLASMA 0.99 mg/dL 0.50 - 1.40 04/09 Specimen Type: SERUM Comment: Hemolysis present analysis cannot be performed. Hemolysis present may falsly elevate Potassium Total and Direct Bili, Iron, AST, %Fe. Ordering Provider: MELVINA MOON Report Released Date/Time: Mar 27, 2023 03:03 PM Reporting Lab: [facility] [address] [facility] [address] Performing Lab: [address] [address] [employer] BASIC METABOLIC PANEL (fasting) GLOMERULAR FILTRATION RATE/1.73 SQ M.PREDICTED [VOLUME RATE/AREA] IN SERUM, PLASMA OR BLOOD BY CREATININE- BASED FORMULA (CKD-EPI 2020) 78 mL/min 60 04/09 Specimen Type: SERUM Comment: Hemolysis present analysis cannot be performed. Hemolysis present may falsly elevate Potassium Total and Direct Bili, Iron, AST, %Fe. Ordering Provider: MELVINA MOON Report Released Date/Time: Mar 27, 2023 03:03 PM Reporting Lab: [address] [address] Performing Lab: [address] [address] [place] CBC AND DIFF (AUTO) LEUKOCYTES [#/VOLUME] IN BLOOD BY AUTOMATED COUNT 7.15 10*3/u L 4.50 - 11.00 04/09 Specimen Type: BLOOD No comment entered. Ordering Provider: MELVINA MOON Report Released Date/Time: Mar 27, 2023 03:03 PM Reporting Lab: [address] [address] Performing Lab: [address] [address] [place] CBC AND DIFF (AUTO) ERYTHROCYTE S [#/VOLUME] IN BLOOD BY AUTOMATED COUNT 4.89 10*6/u L 4.23 - 5.66 04/09 Specimen Type: BLOOD No comment entered. Ordering Provider: MELVINA MOON Report Released Date/Time: Mar 27, 2023 03:03 PM Reporting Lab: [address] [address] Performing Lab: [address] [address] [place] CBC AND DIFF (AUTO) HEMOGLOBIN [MASS/VOLUM E] IN BLOOD 15.9 g/dL 12.8 - 17 04/09 Specimen Type: BLOOD No comment entered. Ordering Provider: MELVINA MOON Report Released Date/Time: Mar 27, 2023 03:03 PM Reporting Lab: [address] [address] Performing Lab: [facility] [address] [address] [place] CBC AND DIFF (AUTO) HEMATOCRIT [VOLUME FRACTION] OF BLOOD BY AUTOMATED COUNT 47.0 39.2 - 50.4 04/09 Specimen Type: BLOOD No comment entered. Ordering Provider: MELVINA MOON Report Released Date/Time: Mar 27, 2023 03:03 PM Reporting Lab: [facility] [address] [address] Performing Lab: [facility] [address] [address] [place] CBC AND DIFF (AUTO) MCV [ENTITIC VOLUME] BY AUTOMATED COUNT 96.1 fL 82 - 99 04/09 Specimen Type: BLOOD No comment entered. Ordering Provider: MELVINA MOON Report Released Date/Time: Mar 27, 2023 03:03 PM Reporting Lab: [facility] [address] [address] Performing Lab[facility] [address] [address] [place] CBC AND DIFF (AUTO) MCHC [MASS/VOLUM E] BY AUTOMATED COUNT 33.8 g/dL 30.8 - 35.1 04/09 Specimen Type: BLOOD No comment entered. Ordering Provider: MELVINA MOON Report Released Date/Time: Mar 27, 2023 03:03 PM Reporting Lab: [facility] [address] [address] Performing Lab: [facility] [address] [address] [place] CBC AND DIFF (AUTO) PLATELETS [#/VOLUME] IN BLOOD BY AUTOMATED COUNT 207 10*3/u L 140 - 360 04/09 Specimen Type: BLOOD No comment entered. Ordering Provider: MELVINA MOON Report Released Date/Time: Mar 27, 2023 03:03 PM Reporting Lab: [facility] [address] [facility] [address] Performing Lab: [facility] [address] [facility] [address] [place] CBC AND DIFF (AUTO) ERYTHROCYTE DISTRIBUTIO N WIDTH [RATIO] BY AUTOMATED COUNT 13.2 12.0 - 16.0 04/09 Specimen Type: BLOOD No comment entered. Ordering Provider: MELVINA MOON Report Released Date/Time: Mar 27, 2023 03:03 PM Reporting Lab: [facility] [address] [address] Performing Lab: [facility] [address] [address] [place] CBC AND DIFF (AUTO) MONOCYTES [#/VOLUME] IN BLOOD BY AUTOMATED COUNT 0.57 10*3/u L 0.30 - 1.10 04/09 Specimen Type: BLOOD No comment entered. Ordering Provider: MELVINA MOON Report Released Date/Time: Mar 27, 2023 03:03 PM Reporting Lab: [facility] [address] [address] Performing Lab: [facility] [address] [address] [place] CBC AND DIFF (AUTO) MCH [ENTITIC MASS] BY AUTOMATED COUNT 32.5 pg 26.2 - 32.6 04/09 Specimen Type: BLOOD No comment entered. Ordering Provider: MEVLINA MOON Report Released Date/Time: Mar 27, 2023 03:03 PM Reporting Lab: [facility] [address] [address] Performing Lab: [facility] [address] [address] [place] CBC AND DIFF (AUTO) NEUTROPHILS /100 LEUKOCYTES IN BLOOD BY AUTOMATED COUNT 63.8 43.7 - 75.8 04/09 Specimen Type: BLOOD No comment entered. Ordering Provider: MELVINA MOON Report Released Date/Time: Mar 27, 2023 03:03 PM Reporting Lab: [facility] [address] [address] Performing Lab: [facility] [address] [address] [place] CBC AND DIFF (AUTO) LYMPHOCYTES /100 LEUKOCYTES IN BLOOD BY AUTOMATED COUNT 19.3 14.0 - 42.3 04/09 Specimen Type: BLOOD No comment entered. Ordering Provider: MELVINA MOON Report Released Date/Time: Mar 27, 2023 03:03 PM Reporting Lab: [facility] [address] [address] Performing Lab: [facility] [address] [address] [place] CBC AND DIFF (AUTO) MONOCYTES/1 00 LEUKOCYTES IN BLOOD BY AUTOMATED COUNT 8.0 5.1 - 13.7 04/09 Specimen Type: BLOOD No comment entered. Ordering Provider: MELVINA MOON Report Released Date/Time: Mar 27, 2023 03:03 PM Reporting Lab: [facility] [address] [address] Performing Lab: [facility] [address] [address] [place] CBC AND DIFF (AUTO) EOSINOPHILS /100 LEUKOCYTES IN BLOOD BY AUTOMATED COUNT 7.8 0.4 - 6.8 04/09 H Specimen Type: BLOOD No comment entered. Ordering Provider: MELVINA MOON Report Released Date/Time: Mar 27, 2023 03:03 PM Reporting Lab: [facility] [address] [address] Performing Lab: [facility] [address] [address] [place] CBC AND DIFF (AUTO) BASOPHILS/1 00 LEUKOCYTES IN BLOOD BY AUTOMATED COUNT 0.8 0.1 - 2.0 04/09 Specimen Type: BLOOD No comment entered. Ordering Provider: MELVINA MOON Report Released Date/Time: Mar 27, 2023 03:03 PM Reporting Lab: [facility] [address] [facility] [address] Performing Lab: [facility] [address] [address] [place] CBC AND DIFF (AUTO) NEUTROPHILS [#/VOLUME] IN BLOOD BY AUTOMATED COUNT 4.56 10*3/u L 2.20 - 7.60 04/09 Specimen Type: BLOOD No comment entered. Ordering Provider: MELVINA MOON Report Released Date/Time: Mar 27, 2023 03:03 PM Reporting Lab: [facility] [address] [address] Performing Lab: [facility] [address] [address] [place] CBC AND DIFF (AUTO) LYMPHOCYTES [#/VOLUME] IN BLOOD BY AUTOMATED COUNT 1.38 10*3/u L 1.00 - 3.20 04/09 Specimen Type: BLOOD No comment entered. Ordering Provider: MELVINA MOON Report Released Date/Time: Mar 27, 2023 03:03 PM Reporting Lab: [facility] [address] [address] Performing Lab: [facility] [address] [address] [place] CBC AND DIFF (AUTO) EOSINOPHILS [#/VOLUME] IN BLOOD BY AUTOMATED COUNT 0.56 10*3/u L 0.03 - 0.44 04/09 H Specimen Type: BLOOD No comment entered. Ordering Provider: MELVINA MOON Report Released Date/Time: Mar 27, 2023 03:03 PM Reporting Lab: [facility] [address] [address] Performing Lab: [facility] [address] [address] [place] CBC AND DIFF (AUTO) BASOPHILS [#/VOLUME] IN BLOOD BY AUTOMATED COUNT 0.06 10*3/u L 0.01 - 0.13 04/09 Specimen Type: BLOOD No comment entered. Ordering Provider: MELVINA MOON Report Released Date/Time: Mar 27, 2023 03:03 PM Reporting Lab: [address] [address] Performing Lab: [facility] [place] [address] [place] CBC AND DIFF (AUTO) IMMATURE GRANULOCYTE S/100 LEUKOCYTES IN BLOOD BY AUTOMATED COUNT 0.3 0.0 - 0.7 04/09 Specimen Type: BLOOD No comment entered. Ordering Provider: MELVINA MOON Report Released Date/Time: Mar 27, 2023 03:03 PM Reporting Lab: [facility] [address] [address] Performing Lab: [facility] [address] [address] [place] CBC AND DIFF (AUTO) IMMATURE GRANULOCYTE S [#/VOLUME] IN BLOOD 0.02 10*3/u L 0.00 - 0.06 04/09 Specimen Type: BLOOD No comment entered. Ordering Provider: MELVINA MOON Report Released Date/Time: Mar 27, 2023 03:03 PM Reporting Lab: [facility] [address] [address] Performing Lab: [address] [address] [place] HEMOGLOBI N A1C PANEL HEMOGLOBIN A1C/HEMOGLO BIN.TOTAL IN BLOOD BY HPLC 5.4 4.0 - 5.6 04/09 Specimen Type: BLOOD Comment: Values obtained from A1C measurement s can vary. For atypical A1C assays, a reported value of 7.0 could actually be between 6.72 and 7.28 if measured by a reference method. A reported value of 9.0 could actually be between 8.73 and 9.27. Ref: [email or web address] Ordering Provider: MELVINA MOON Report Released Date/Time: Mar 27, 2023 03:03 PM Reporting Lab: [address] [address] Performing Lab: [address] [address] [place] LIPID PANEL FASTING CHOLESTEROL [MASS/VOLUM E] IN SERUM OR PLASMA 174 mg/dL 04/09 Specimen Type: SERUM Comment: Hemolysis present analysis cannot be performed. Hemolysis present may falsly elevate Potassium Total and Direct Bili, Iron, AST, %Fe. Ordering Provider: MELVINA MOON Report Released Date/Time: Mar 27, 2023 03:03 PM Reporting Lab: [address] [address] Performing Lab: [address] [address] [place] LIPID PANEL FASTING TRIGLYCERID E [MASS/VOLUM E] IN SERUM OR PLASMA 91 mg/dL 0 - 150 04/09 Specimen Type: SERUM Comment: Hemolysis present analysis cannot be performed. Hemolysis present may falsly elevate Potassium Total and Direct Bili, Iron, AST, %Fe. Ordering Provider: MELVINA MOON Report Released Date/Time: Mar 27, 2023 03:03 PM Reporting Lab: [address] [address] Performing Lab: [address] [address] [place] LIPID PANEL FASTING CHOLESTEROL IN LDL [MASS/VOLUM E] IN SERUM OR PLASMA BY CALCULATION 112 mg/dL 0 - 129 04/09 Specimen Type: SERUM Comment: Hemolysis present analysis cannot be performed. Hemolysis present may falsly elevate Potassium Total and Direct Bili, Iron, AST, %Fe. Ordering Provider: MELVINA MOON Report Released Date/Time: Mar 27, 2023 03:03 PM Reporting Lab: [address] [id number] Performing Lab: [address] [id number] [place], [place] [id number] LIPID PANEL FASTING CHOLESTEROL .TOTAL/CHOL ESTEROL IN HDL [MASS RATIO] IN SERUM OR PLASMA 4.0 04/09 Specimen Type: SERUM Comment: Hemolysis present analysis cannot be performed. Hemolysis present may falsly elevate Potassium Total and Direct Bili, Iron, AST, %Fe. Ordering Provider: MELVINA MOON Report Released Date/Time: Mar 27, 2023 03:03 PM Reporting Lab: [address] [id number] Performing Lab: [address] [id number] [place], [place] [address]FIE LIPID PANEL FASTING CHOLESTEROL IN HDL [MASS/VOLUM E] IN SERUM OR PLASMA 44 mg/dL 40 - 60 04/09 Specimen Type: SERUM Comment: Hemolysis present analysis cannot be performed. Hemolysis present may falsly elevate Potassium Total and Direct Bili, Iron, AST, %Fe. Ordering Provider: MELVINA MOON Report Released Date/Time: Mar 27, 2023 03:03 PM Reporting Lab: [address] [address] Performing Lab: [address] [address] [place] LIVER FUNCTION PROTEIN [MASS/VOLUM E] IN SERUM OR PLASMA 6.8 g/dL 6.0 - 8.3 04/09 Specimen Type: SERUM Comment: Hemolysis present analysis cannot be performed. Hemolysis present may falsly elevate Potassium Total and Direct Bili, Iron, AST, %Fe. Ordering Provider: MELVINA MOON Report Released Date/Time: Mar 27, 2023 03:03 PM Reporting Lab: [address] [address] Performing Lab: [facility] [address] [facility] [address] [place] LIVER FUNCTION ALBUMIN [MASS/VOLUM E] IN SERUM OR PLASMA 3.8 g/dL 3.5 - 5.0 04/09 Specimen Type: SERUM Comment: Hemolysis present analysis cannot be performed. Hemolysis present may falsly elevate Potassium Total and Direct Bili, Iron, AST, %Fe. Ordering Provider: MELVINA MOON Report Released Date/Time: Mar 27, 2023 03:03 PM Reporting Lab: [facility] [address] [facility] [address] Performing Lab: [address] [address] [facility] LIVER FUNCTION ALKALINE PHOSPHATASE [ENZYMATIC ACTIVITY/VO LUME] IN SERUM OR PLASMA 101 U/L 40 - 150 04/09 Specimen Type: SERUM Comment: Hemolysis present analysis cannot be performed. Hemolysis present may falsly elevate Potassium Total and Direct Bili, Iron, AST, %Fe. Ordering Provider: MELVINA MOON Report Released Date/Time: Mar 27, 2023 03:03 PM Reporting Lab: [address] [address] Performing Lab: [address] [address] [facility] LIVER FUNCTION ASPARTATE AMINOTRANSF ERASE [ENZYMATIC ACTIVITY/VO LUME] IN SERUM OR PLASMA 20 U/L 5 - 34 04/09 Specimen Type: SERUM Comment: Hemolysis present analysis cannot be performed. Hemolysis present may falsly elevate Potassium Total and Direct Bili, Iron, AST, %Fe. Ordering Provider: MELVINA MOON Report Released Date/Time: Mar 27, 2023 03:03 PM Reporting Lab: [address] [address] Performing Lab: [address] [address] [place] LIVER FUNCTION ALANINE AMINOTRANSF ERASE [ENZYMATIC ACTIVITY/VO LUME] IN SERUM OR PLASMA 23 U/L 04/09 Specimen Type: SERUM Comment: Hemolysis present analysis cannot be performed. Hemolysis present may falsly elevate Potassium Total and Direct Bili, Iron, AST, %Fe. Ordering Provider: MELVINA MOON Report Released Date/Time: Mar 27, 2023 03:03 PM Reporting Lab: [address] [address] Performing Lab: [address] [address] [place] LIVER FUNCTION BILIRUBIN.T OTAL [MASS/VOLUM E] IN SERUM OR PLASMA commen tmg/dL 0.2 - 1.2 04/09 Specimen Type: SERUM Comment: Hemolysis present analysis cannot be performed. Hemolysis present may falsly elevate Potassium Total and Direct Bili, Iron, AST, %Fe. Ordering Provider: MELVINA MOON Report Released Date/Time: Mar 27, 2023 03:03 PM Reporting Lab: [address] [address] Performing Lab: [address] [address] [place] TSH THYROTROPIN [UNITS/VOLU ME] IN SERUM OR PLASMA 1.16 u[IU]/ mL 0.35 - 5.00 04/09 Specimen Type: SERUM Comment: Hemolysis present analysis cannot be performed. Hemolysis present may falsly elevate Potassium Total and Direct Bili, Iron, AST, %Fe. Ordering Provider: MELVINA MOON Report Released Date/Time: Mar 27, 2023 03:03 PM Reporting Lab: [address] [address] Performing Lab: [address] [address] [facility] Vital Signs Combined list of inpatient and outpatient Vital Signs from Department of Defense and Veterans Affairs, ranging from 12 months to all on record, depending upon the facility. Vital Sign Value Date Comments Source SYSTOLIC BLOOD PRESSURE 143 02/07/2024 13:44:19 [place] DIASTOLIC BLOOD PRESSURE 81 02/07/2024 13:44:19 [place] PULSE OXIMETRY 95 02/07/2024 13:44:19 [place] WEIGHT 213.8 02/07/2024 13:44:19 [place] BMI 31kg/m2 02/07/2024 13:44:19 [place] TEMPERATURE 98.3 02/07/2024 13:44:19 [place] PULSE 86 02/07/2024 13:44:[facility] SYSTOLIC BLO[facility] PRESSURE 134 04/09/2023 10:58:16 [place] DIASTOLIC BLOOD PRESSURE 77 04/09/2023 10:58:16 [place] PULSE OXIMETRY 95% 04/09/2023 10:58:16 [place] WEIGHT 207.8 04/09/2023 10:58:16 [place] BMI 30kg/m2 04/09/2023 10:58:16 [place] TEMPERATURE 98.1 04/09/2023 10:58:16 [place] PULSE 84 04/09/2023 10:58:16 [place] Encounters Combined list of: 1) Encounters from Department of Veterans Affairs facilities going back up to thelast 18 months. 2) Encounters from the Department of Defense facilities going back up to 280 months. Location Location Details Encounter Type Encounter Number Reason For Visit Attending Provider ADM Date DC Date Status Disposition Source [place] [facility] [place] [facility] Outpatient Encounter [id number] 10/10 [place] [facility] [place] [facility] [facility] [place] Outpatient [facility]counter [id number] 10/10 [facility] [place] [facility] [place] REPAIR & ADJUST SPECTACLES [id number] Diagnos is: ICD-10- CM Z46.0 Encount er for fit/adj st of spectac les and contact lenses< br/> CYNTHIA ANN 12/08 [facility] En[facility] [id number] 12/31 [facility]counter [id number] 02/26 [facility] Encounter [id number] 03/02 [facility] [place] Encounter [id number] 03/29 [facility] [place] OFFICE O/P EST MOD 30 MIN [id number] Diagnos is: ICD-10- CM C43.9 Maligna nt melanom a of skin, unspeci fied
HUYEN CHRISTIANSEN 04/09 [facility] En[facility] [id number] 04/09 [facility] Encounter [id number] 05/12 [facility] [place] Encounter [id number] 06/06 [facility] Encounter [id number] 06/21 [facility] Encounter [id number] 07/01 [facility] [place] En[facility] [id number] 07/24 [facility] Encounter [id number] 11/26 [facility] CPTR OPHTH DX IMG POST SEGMT [id number] Diagnos is: ICD-10- CM H40.013 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, low risk, bilater al
JOCELIN BAKER 11/27 [facility] [place] [id number] Diagnos is: ICD-10- CM H40.013 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, low risk, bilater al
JOCELIN BAKER 11/27 [facility] Encounter [id number] 01/02 [facility] Encounter [id number] 1.01/17 [facility] [place] [place] Outpatient Encounter [id number] 1.02/06 [facility] [place] [facility] OFFICE O/P EST MOD 30 MIN [id number] 1BY. 02 Diagnos is: ICD-10- CM Z00.8 Encount er for other general examina tion
HUYEN CHRISTIANSEN 02/06 [facility] [place] Social History Combined list of available smoking, tobacco, and other social history from Department of Defense and Veterans Affairs facilities. 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 [place] History of tobacco use [place] FORMER USER 03/22/2018 [place] History of tobacco use QUIT TOBACCO USE IN PAST YEAR 04/09/2017 reports quitting 4 months ago [facility] History of tobacco use CURRENT SMOKER 03/21/2016 [place] History of tobacco use CURRENT SMOKER 03/11/2015 6 cigarettes/d [facility] History of tobacco use CURRENT SMOKER 03/19/2014 5-6 cigarettes per day [facility] History of tobacco use V1-PT THINKING ABOUT QUIT TOBACCO USE 06/02/2013 [place] History of tobacco use CURRENT SMOKER 11/29/2012 Pt stated that he smokes about 6 cigaretts a day [facility] History of tobacco use V1-TOBACCO CESS MEDS NOT PRESCRIBED 04/30/2012 PCP WILL ORDER THIS [place] History of tobacco use CURRENT SMOKER 06/01/2011 Pt. states hi smokes 5-6 cigerettes a day. [facility] History of tobacco use CURRENT SMOKER 04/27/2010 smoker for 50 yrs...smokes 6-8 cigarettes per day [facility] History of tobacco use V1-PT THINKING ABOUT QUIT TOBACCO USE 09/13/2009 [place] History of tobacco use CURRENT SMOKER 03/09/2009 10 cigarettes per day [facility] History of tobacco use CURRENT SMOKER 02/04/2008 Patient states he smokes a pack of ciggs per day. [facility] History of tobacco use V1-PT READY TO QUIT TOBACCO USE 03/14/2007 [facility] History of tobacco use CURRENT SMOKER 06/19/2006 counselled [facility] History of tobacco use QUIT TOBACCO USE IN PAST YEAR 06/13/2005 continue bupropion [facility] History of tobacco use CURRENT SMOKER 11/17/2004 1 pack a day [facility] History of tobacco use CURRENT SMOKER 06/23/2003 1ppd x 30yrs [facility] Plan of Care List of future care activities from Department of Veterans Affairs facilities. Additional future care activities may be listed in the Assessment and Plan section. Date/Time Care Activity Care Activity Detail Facili ty 05/29/2024 AMBULATORY - MEDICINE AMBULATORY - MEDICI [facility] [place] [facility] 01/31/2024 Laboratory - [facility] Order BASIC METABOLIC PANEL (fasting) BLOOD (SST-SERUM) [facility] 01/31/2024 Laboratory - [place] [facility] Order LIPID PANEL FASTING BLOOD (SST-SERUM) [facility] 01/31/2024 Laboratory - [place] [facility] Order LIVER FUNCTION BLOOD (SST-SERUM) [facility] 01/31/2024 Laboratory - [place] [facility] Order CBC AND DIFF (AUTO) BLOOD (LAV-BLOOD) [facility] 01/31/2024 Laboratory - [place] [facility] Order HEMOGLOBIN A1C PANEL BLOOD (LAV-BLOOD) [facility] 01/31/2024 Laboratory - [place] [facility] Order TSH BLOOD (SST-SERUM) [facility]
--- OUTSIDE RECORDS SUMMARY | 2024-03-12 09:31 | XMS_ITS ---
Author Organization [facility] Address [address] [place] [address] Care Team Providers Care Radio Mechanic Helper Name Role Phone Gabriel MONTGOMERY, [place] Primary Care Provider Tootie EchevarriaannaRaquel Unavailable [phone] Allergies No Known Allergies REASON FOR VISIT Painful nail(s) aggrevated by shoes causing difficulty standing/walking, Skin Problem Medications Medication SIG (Take, Route, Frequency, Duration) Notes Start Date End Date Status PreserVision AREDS 2 Active Multivitamin Active Atorvastatin Calcium 40 MG 1 tablet Orally Once a day for 30 day(s) Active buPROPion HCl ER (Smoking Det) 150 MG 1 tablet in the morning Orally Once a day for 30 day(s) Active Apixaban 5 MG as directed Orally Not-Taking Lisinopril 5 MG 1 tablet Orally Once a day for 30 day(s) Active Ciclopirox Olamine 0.77 % 1 application Externally Twice a day for 30 days Active Social History Tobacco Use: Social History [...] User Light cigarett e smoker ((1-9 cigs/day) Tobacco use other than smoking: Question Answer Notes Are you an other tobacco user? No Vital Signs Height 5 ft 9 in in 11/16/2023 Weight 200 lbs 11/16/2023 BMI 29.53 kg/m2 11/16/2023 Blood pressure systolic 120 mm Hg 11/16/19 24 Blood pressure diastolic 80 mm Hg 024 Encounters Encounter Location Date Provider Diagnosis [facility] [address] [place] [address] 11/16/2023 Raquel Smith Tinea unguium B35.1 ; Tinea pedis of both feet B35.3 ; Pain in toe of right foot M79.674 ; Pain in toe of left foot M79.675 and Neuropathy G62.9 Assessments Encounter Date Diagnosis (ICD Code) Assessment Notes Treatment Notes Treatment Clinical Notes Section Notes 11/16/2023 Tinea unguium (ICD-10 - B35.1) 11/16/2023 Tinea pedis of both feet (ICD-10 - B35.3) 11/16/2023 Pain in toe of right foot (ICD-10 - M79.674) 11/16/2023 Pain in toe of left foot (ICD-10 - M79.675) 11/16/2023 Neuropathy (ICD-10 - G62.9) Plan Of Treatment Next Appt Details Follow Up: 2 Months, Reason: Provider Name:Raquel castillo, 04/18/2024 12:15:00 PM, [address] [place] [address], [id number], Procedure Notes * Category Sub-Category Detail Notes Debride Nail 6-10 Nail debridement Nail debridem ent performed extensively to reduce/remove overall nail length and girth, subungual debris, and necrotic tissue, by manual and electrical means with use of a nail nipper and/or dremel, to more viable healthy nail plate or bed tissue 6-10. Silver nitrate used for any petechial bleeding as necessary. Patient chooses,, to use a topical antifungal Progress Notes * Robert MCINTYREDOB:1945 (78 yo M)Acc No.[id number]:11/16/2023 Progress Note Patient:?Robert Mcintyre Provider:?Raquel Smith DPM :1945???Age:78 Y???Sex:Male Gabriel e:11/16/2023 Address:[address] [place] [address], [id number] Pcp:Zachery Rios MD Subjective: * Chief Complaints: * ???Painful nail(s) aggrevate d by shoes causing difficulty standing/walkingSkin Problem * HPI: ???Painful Nails:?Pt States Last PCP Visit:?Date:?10/01/2023 ???Skin problems:?Nature:?scaling , redness.?Location:?B/L .?Course:?improved.?Treatments:?Medication (Ciclopirox Olamine 0.77 Cream).? * ROS:?General/Constitutional:?Nausea?denies, denies, denies, denies, denies, denies, denies, denies, denies.?Vomiting?denies, denies, denies, denies, denies, denies, denies, denies, denies.?Hunger Thirst?denies, denies, denies, denies, denies, denies, denies, denies, denies.?Loss appetite?denies, denies, denies, denies, denies, denies, denies, denies, denies.?Chills?denies, denies, denies, denies, denies, denies, denies, denies, denies.?Fatigue?denies, denies, denies, denies, denies, denies, denies, denies, denies.?Fever?denies, denies, denies, denies, denies, denies, denies, denies, denies.?Night Sweats?denies, denies, denies, denies, denies, denies, denies, denies, denies.?Unexplained weight loss?denies, denies, denies, denies, denies, denies, denies, denies, denies.?Unexplained weight gain denies, denies, denies, denies, denies, denies, denies, denies, denies.?HEENTM:?Dentures?admits, admits, admits, admits, admits, denies, admits, admits, admits.?Dizziness?denies, denies, denies, denies, denies, denies, denies, denies, denies.?Glasses/contacts?admits, admits, admits, admits, admits, denies, admits, admits, admits.?Retinopathy?denies, denies, denies, denies, denies, denies, denies, denies, denies.?Blurred/double vision?denies, denies, denies, denies, denies, denies, denies, denies, denies.?TMJ?denies, denies, denies, denies, denies, denies, denies, denies, denies.?Discharge/drainage?denies, denies, denies, denies, denies, denies, denies, denies, denies. Implants?denies, denies, denies, denies, denies, denies, denies, denies, denies.?Sore throat?denies, denies, denies, denies, denies, denies, denies, denies, denies.?Dental implants?denies, denies, denies, denies, denies, denies, denies, denies, denies.?Hard of hearing ?denies, denies, denies, denies, denies, denies, denies, denies, denies.?Difficulty chewing/swallowing/speaking?denies, denies, denies, denies, denies, denies, denies, denies, denies.?Nose bleeds?denies, denies, denies, denies, denies, denies, denies, denies, denies.?Sore mouth?denies, denies, denies, denies, denies, denies, denies, denies, denies.?Respiratory:?On Oxygen?denies, denies, denies, denies, denies, denies, denies, denies, denies.?Pneumonia/pleurisy?denies, denies, denies, denies, denies, denies, denies, denies, denies.?Bronchitis?denies, denies, denies, denies, denies, denies, denies, denies, denies.?Emphysema?denies, denies, denies, denies, denies, denies, denies, denies, denies.?Coughing?denies, denies, denies, denies, denies, denies, denies, denies, denies. Cough blood?denies, denies, denies, denies, denies, denies, denies, denies, denies.?Shortness of breath?denies, denies, denies, denies, denies, denies, denies, denies, denies. Wheezing?denies, denies, denies, denies, denies, denies, denies, denies, denies.?Cardiovascular:?Pacemaker?denies, denies, denies, denies, denies, denies, denies, denies, denies.?MVP?denies, denies, denies, denies, denies, denies, denies, denies, denies.?WPW?denies, denies, denies, denies, denies, denies, denies, denies, denies.?CHF?denies, denies, denies, denies, denies, denies, denies, denies, denies.?Heart attack?denies, denies, denies, denies, denies, denies, denies, denies, denies.?Septal defect?denies, denies, denies, denies, denies, denies, denies, denies, denies.?Rapid beat?denies, denies, denies, denies, denies, denies, denies, denies, denies.?Chest pain ?denies, denies, denies, denies, denies, denies, denies, denies, denies.?Atrial Fib.?denies, denies, denies, denies, denies, denies, denies, denies, denies.?Murmur/Palpitations?denies, denies, denies, denies, denies, denies, denies, denies, denies.?Gastrointestinal:?Hemorrhoids?denies, denies, denies, denies, denies, denies, denies, denies, denies.?Stomach/Abdominal pain?denies, denies, denies, denies, denies, denies, denies, denies, denies.?Dark blood stool?denies, denies, denies, denies, denies, denies, denies, denies, denies.?Irritable bowel ?denies, denies, denies, denies, denies, denies, denies, denies, denies.?Constipation?denies, denies, denies, denies, denies, denies, denies, denies, denies.?Diarrhea?denies, denies, denies, denies, denies, denies, denies, denies, denies.?Hematology:?Swelling?denies, denies, denies, denies, admits, admits, denies, denies, denies.?Clots?Admits, Admits, Admits, Admits, denies, denies, Admits, Admits, Admits.?Varicose Veins?denies, denies, denies, denies, denies, denies, denies, denies, denies.?Bruising?denies, denies, denies, denies, denies, denies, denies, denies, denies.?Bleeding problem?denies, denies, denies, denies, denies, denies, denies, denies, denies.?Genitourinary:?Blood urine?denies, denies, denies, denies, denies, denies, denies, denies, denies.?Frequent/Painfu/urination/bladder control?denies, denies, denies, denies, denies, denies, denies, denies, denies.?Kidney stones?denies, denies, denies, denies, denies, denies, denies, denies, denies.?Infection (UTI)?denies, denies, denies, denies, denies, denies, denies, denies, denies.?Nephropathy?denies, denies, denies, denies, denies, denies, denies, denies, denies.?sex trans dis (STD)?denies, denies, denies, denies, denies, denies, denies, denies, denies.?Prostate?denies, denies, denies, denies, denies, denies, denies, denies, denies.?Musculoskeletal:?Hammertoes?denies, denies, denies, denies, denies, denies, denies, denies, denies.?Bunions?denies, denies, denies, denies, denies, denies, denies, denies, denies.?Back Pain?admits, admits, admits, admits, admits, admits, admits, admits, admits.?Muscle Cramps/ Resting?denies, denies, denies, denies, denies, denies, denies, denies, denies.?Muscle cramps / walking?denies, denies, denies, denies, denies, denies, denies, denies, denies.?Generalized aches and pains?denies, denies, denies, denies, denies, denies, denies, denies, denies.?Weakness?denies, denies, denies, denies, denies, denies, denies, denies, denies.?Integ.:?Snyder?denies, denies, denies, denies, denies, denies, denies, denies, denies.?Scars?denies, denies, denies, denies, denies, denies, denies, denies, denies.?Corns/calluses?denies, denies, denies, denies, denies, denies, denies, denies, denies.?Ingrown nails?denies, denies, denies, denies, denies, denies, denies, denies, denies.?Painful nails?denies, denies, denies, denies, denies, denies, denies, denies, denies. Open Sores?denies, denies, denies, denies, denies, denies, denies, denies, denies.?Rashes?denies, denies, denies, denies, denies, denies, denies, denies, denies.?Neurologic:?Difficulty sleeping?denies, denies, denies, denies, denies, denies, denies, denies, denies.?Brain disorder?denies, denies, denies, denies, denies, denies, denies, denies, denies.?Numbness?admits, admits, admits, admits, denies, admits, admits, admits, admits.?Balance trouble?denies, denies, denies, denies, denies, denies, denies, denies, denies.?Confusion?denies, denies, denies, denies, denies, denies, denies, denies, denies.?Fainting/blackouts?denies, denies, denies, denies, denies, denies, denies, denies, denies.?Tingling?denies, denies, denies, denies, denies, admits, denies, denies, denies.?Tremors?denies, denies, denies, denies, denies, denies, denies, denies, denies.? * Medical History:? * Surgical History:?melanoma 2 [...] than smoking?Are you an other tobacco user??No ???Miscellaneous:?Caffeine: yes, frequency:, 2-3 cups per day. [...] 2 00, BMI: 29.53, Shoe size: 10-10.5, BP: 120/80 mm Hg, Ht-cm: 175.26 cm, Wt-k.72 kg. * Examination: ???Nails: ?NAILS are:?Elongated, overgrown, dystrophic, lytic, greater than 3mm thick, discolored and friable with crumbly malodorous subungual debris with dull to no pain on palpation due to neuropathy 1-5 B/L.?Dermatologic: ?SKIN FINDINGS:?Skin shows approximately __90_% LESS sign(s) of, erythema, scaling, in a moccasin fashion, no fissure(s) present, B/L.?General Examination: ?GENERAL APPEARANCE:?Reveals a pleasant, alert, well nourished, well- developed, well hydrated individual, who demonstrates proper attention to hygiene/body habitus, and is in no acute distress, Pt serves as own historian for office visit today.?ORIENTED:?person, place, and time.?Vascular: ?DP PULSES:?3/4, B/L.?PT PULSES:?3/4, B/L.?CAPILLARY FILL TIME:?immediate, all digits, B/L.?Neurological: ?SENSORY:?Neurological exam reveals intact sensorium, pain sensation normal, vibration sensation intact, pinprick sensation is normal in the lower extremities, Pt denies, anesthesia, burning, paresthesia, tingling, B/L.? Assessment: * Assessment: 1.?Tinea unguium - B35.1?2.? Tinea pedis of both feet - B35.3 (Primary), Acute problem, Uncomplicated (3),Rx drug management (4)?3.?Pain in toe of right foot - M79.674?4.?Pain in toe of left foot - M79.675?5.?Neuropathy - G62.9? Plan: * Treatment: * Procedures:?Debride Nail 6-10:?Nail debridement?Nail debridement performed extensively to reduce/remove overall nail length and girth, subungual debris, and necrotic tissue, by manual and electrical means with use of a nail nipper and/or dremel, to more viable healthy nail plate or bed tissue 6-10. Silver nitrate used for any petechial bleeding as necessary. Patient chooses,, to use a topical antifungal.? * Procedure Codes:?[id number] DEBRI DE NAIL, 6 OR MORE * Preventive Medicine:? ??Counseling:?Discussion:?-13: Office or other outpatient visit for the evaluation and management of an established patient, which required a medically appropriate history and/or examination and LOW level of DECISION MAKING for: 1 STABLE ACUTE UNCOMPLICATED PROBLEM, 2 OR MORE MINOR PROBLEMS, OR 1 STABLE CHRONIC PROBLEM, THAT POSE(S) A LOW RISK FOR MORBIDITY/MORTALITY. The visit on the day of the encounter encompassed interpreting the data and educating the patient as to the nature of their condition, treatment options available according to their individual PMH, meds, allergies, and overall health/living conditions, as well as any potential risks or complications that may occur from a failure to adhere to, and participate in, the recommended course of therapy. The discussion included a complete verbal, and/or written explanation of the examination results, any x-rays taken, the proposed diagnosis, and outline of the treatment plan. A schedule for future care needs was also explained. The patient verbalized an understanding of the instructions at this time and agreed to be an active participant in their treatment. If the patient should think of any questions or concerns after the visit, I have encouraged the patient to call the office.?Tinea Pedis:?Given recent successful results to treatment, The patient is to cont the rx cream as directed as needed.? * Follow Up:?2 Months * Images: * Sign off status: Completed true * Provider:PRERNA TangM Date:? Generated for Salvador guajardo/Flori/Yecenia on:?03/12/2024 09:30 AM EST History and Physical Notes * HPI (History of Present Illness) Category Sub-Category Detail Notes Category Not es Painful Nails Pt States Last PCP Visit: Date:: 10/01/2023 Skin problems Nature: scaling , redness Location: B/L Course: improved Treatments: Medication (Ciclopir ox Olamine 0.77 Cream) Examination Category Sub-Category Detail Notes Category Not es Neurological SENSORY: Neurological exa m reveals intact sensorium, pain sensation normal, vibration sensation intact, pinprick sensation is normal in the lower extremities, Pt denies, anesthesia, burning, paresthesia, tingling, B/L Dermatologic SKIN FINDINGS: Skin shows appro ximately __90_% LESS sign(s) of, erythema, scaling, in a moccasin fashion, no fissure(s) present, B/L General Examination GENERAL APPEARANCE: Reveals a pleasant, alert, well nourished, well-developed, well hydrated individual, who demonstrates proper attention to hygiene/body habitus, and is in no acute distress, Pt serves as own historian for office visit today ORIENTED: person, place, and t criselda Vascular DP PULSES(B): 3/4, B/L PT PULSES(B): 3/4, B/L CAPILLARY FILL TIME: immediate, all digi ts, B/L Nails NAILS are: Elongated, overg rown, dystrophic, lytic, greater than 3mm thick, discolored and friable with crumbly malodorous subungual debris with dull to no pain on palpation due to neuropathy 1-5 B/L
--- OUTSIDE RECORDS SUMMARY | 2024-03-12 09:33 | XMS_ITS ---
Author Name [facility] Organization [facility] Address [address] [place] [id number] Care Team Providers Care Reel Worker Name Role Phone NATALIE MASON Primary Care [...] PART A Jul 02, 2011 PART A [id number] ADRIANA JOSÉ PATIENT MEDICARE (WNR) MEDICARE (M) PART B Jul 02, 2011 PART B [id number] ADRIANA JOSÉ PATIENT MEDICARE (WNR) MEDICARE (M) PART A Jul 02, 2011 PART A [id number] ADRIANA JOSÉ PATIENT MEDICARE (WNR) MEDICARE (M) PART B Jul 02, 2011 PART B [id number] ADRIANA JOSÉ PATIENT MEDICARE (WNR) MEDICARE (M) PART A Jul 02, 2011 PART A [id number] ADRIANA JOSÉ PATIENT MEDICARE (WNR) MEDICARE (M) PART A Jul 02, 2011 PART A [id number] ADRIANA JOSÉ PATIENT MEDICARE (WNR) MEDICARE (M) PART B Jul 02, 2011 PART B [id number] ADRIANA JOSÉ PATIENT MEDICARE (WNR) MEDICARE (M) PART B Jul 02, 2011 PART B [id number] [phone] ADRIANA JOSÉ PATIENT [place] [facility]IC[facility] [employer] MEDIC ARE SUPPL EMENT Jul 02, 2011 CORE [id number] [phone] ADRIANA JOSÉ PATIENT [place] [facility] [employer] [employer] MEDIC ARE PREFE RRED Apr 02, 2015 CORE [id number] ADRIANA JOSÉ PATIENT [place] [facility] [employer] MEDIC ARE SUPPL EMENT Jul 02, 2011 CORE [id number] ADRIANA JOSÉ PATIENT Selected Encounter This section includes the information on record at [place] for the Encounter. Date/Time Encounter Type Encounter Description Reason Pro vider Source May 12, 2023 01:58 PM Outpatient Encounter ADMIN PAT ACTIVTIES (MASNONCT) [facility] Encounter Template Text not used by [place] Plan of Treatment: Future Appointments (+ 6 months) and Future Tests (+/- 45 days) The Plan of Treatment section includes future care activities for the patient from all [place] treatmentfacilities. This section includes future appointments and future orders which are active, pending or scheduled. Future Appointments This section includes appointments that were scheduled to occur 6 months from the date of the Encounter, up to a maximum of 20 appointments. The data comes from all [place] treatment facilities. Appointment Date/Time Appointment Type Appointme nt Facility Name August 02, 2023 01:00 PM [place] [facility] [place] [facility] August 02, 2023 01:30 PM AMBULATORY - MEDICINE [facility] [place] [facility] August 23, 2023 01:50 PM AMBULATORY - MEDICINE [facility] [place] [facility] Social History: Smoking Status (Most current) and Tobacco Use (All prior to encounter date) This section includes the most current, and the historical, smoking and tobacco- related health factors from the [place] facility where the Encounter took place. Current Smoking Status This section includes the most current smoking, or tobacco-related health factor, from the [place] facility where the Encounter took place. Date/Time Current Smoking Status Comment Facil ity May 11, 2022 10:21 AM VA-TOBACCO USER EVERY DAY [facility] Tobacco Use History This section includes a history of the smoking, or tobacco-related health factors, that were collected on or before the date of the Encounter. The data comes from the [place] facility where the Encounter took place. Date/Time Smoking Status/Tobacco Use Comment F acility May 11, 2022 10:21 AM [facility] May 11, 2022 10:21 AM VA-TOBACCO USE [employer] NO [place] [facility] May 11, 2022 10:21 AM [facility] May 11, 2022 10:21 AM VA-TOBACCO USE [place] 30 MIN [facility] WAKEUP [place] [facility] May 11, 2022 10:21 AM VA-TOBACCO USER EVERY DAY [facility] Encounter Notes: All associated encounter notes This section contains the clinical notes associated to the Encounter. Date/Time Encounter Note(s) Provider Source May 12, 2023 01:58 PM PHARMACY NOTE: LOCAL TITLE: PHARMACY CUSTOMER CARE MEDICATION RENEWAL STANDARD TITLE: PHARMACY NOTE DATE OF NOTE: MAY 12, 2023@13:58 ENTRY DATE: MAY 12, 2023@13:58:34 AUTHOR: ALEXIA ABURTO COSIGNER: URGENCY: STATUS: COMPLETED Date: May Division: [employer] Pt referred by Pharmacy Call Center for medication renewal: Non-controlled/maintenan ce medication Medications requested: [id number] BUPROPION HCL 150MG 12HR SA TAB Defer to primary care provider To be mailed . Please review and renew if appropriate. *This note was generated by [facility] Pharmacy Customer Care. If you have any questions or need assistance, do not contact this author. Please refer all questions to your local, on-site pharmacy departments. /haritha/ ALEXIA ABURTO [facility] Pulmonary Physical Therapist, [place]/Pharmacy Customer Care Signed: 05/12/2023 13:58 Receipt Acknowledged By: 05/14/2023 08:14 /es/ PAIGE VILLEGAS RN REGISTERED NURSE 05/13/2023 21:34 /es/ NATALIE MASON MD PHYSICIAN ALEXIA ABURTO [facility]
--- OUTSIDE RECORDS SUMMARY | 2024-03-12 09:33 | XMS_ITS | Encounter Summary ---
Author Name [facility] Organization [facility] Address [address] [place] [address] Care Team Providers Care Dry Cleaning Supervisor Name Role Phone NATALIE MASON Primary Care [...] PART A Jul 02, 2011 PART A [id number] [phone] ADRIANA JOSÉ PATIENT MEDICARE (WNR) MEDICARE (M) PART B Jul 02, 2011 PART B [id number] [phone] ADRIANA JOSÉ PATIENT MEDICARE (WNR) MEDICARE (M) PART A Jul 02, 2011 PART A [id number] ADRIANA JOSÉ PATIENT MEDICARE (WNR) MEDICARE (M) PART A Jul 02, 2011 PART A [id number] [phone] ADRIANA JOSÉ PATIENT MEDICARE (WNR) MEDICARE (M) PART B Jul 02, 2011 PART B [id number] [phone] ADRIANA JOSÉ PATIENT MEDICARE (WNR) MEDICARE () PART B Jul 02, 2011 PART B [id number] [phone] ADRIANA JOSÉ PATIENT MEDICARE (WNR) MEDICARE (M) PART A Jul 02, 2011 PART A [id number] ADRIANA JOSÉ PATIENT MEDICARE (WNR) MEDICARE (M) PART B Jul 02, 2011 PART B [id number] [phone] ADRIANA JOSÉ PATIENT [place] [facility] SUPP[employer] [place] MEDIC ARE SUPPL EMENT Jul 02, 2011 [facility] [id number] ADRIANA JOSÉ PATIENT [place] [facility] SUPPLEMEN [facility] MEDIC ARE PREFE RRED Apr 02, 2015 [facility] [id number] ADRIANA JOSÉ PATIENT [facility] SUPPLEMEN [facility] MEDIC ARE SUPPL EMENT Jul 02, 2011 [facility] [id number] ADRIANA JOSÉ PATIENT Selected Encounter This section includes the information on record at [place] for the Encounter. Date/Time Encounter Type Encounter Description Reason Provider Source Apr 09, 2023 11:00 AM OFFICE O/P EST MOD 30 MIN PRIMARY CARE/MEDICINE ICD-10-CM C43.9 Malignant melanoma of skin, unspecified NATALIE SMITH David Encounter Template Text not used by [facility] Assessments - Encounter Diagnoses This section includes the primary and secondary diagnoses documented for the Encounter. Date/Time Primary/Secondary Diagnosis Diagnosis Name Provider Source Apr 09, 2023 01:04 PM PRIMARY Malignant melanoma of skin, unspecified NATALIE SMITH [place] Apr 09, 2023 01:04 PM SECONDARY Benign prostatic hyperplasia without lower urinry tract symp NATALIE SMITH [place] Apr 09, 2023 01:04 PM SECONDARY Essential (primary) hypertension NATALIE SMITH [place] Apr 09, 2023 01:04 PM SECONDARY Mixed hyperlipidemia NATALIE SMITH [place] Apr 09, 2023 01:04 PM SECONDARY Nicotine dependence, cigarettes, uncomplicated NATALIE SMITH [place] Apr 09, 2023 01:04 PM SECONDARY Non-Hodgkin lymphoma, unspecified, unspecified site NATALIE SMITH [place] Apr 09, 2023 01:04 PM SECONDARY Overweight NATALIE SMITH [place] Apr 09, 2023 01:04 PM SECONDARY Personal history of colonic polyps LISARYJOI ROPERNATALIE Emmanuel [place] Apr 09, 2023 01:04 PM SECONDARY Squamous cell carcinoma of skin, unspecified JERRYEzraNATHAN ROPERSTEFANJESSICADAKOTA Emmanuel [place] Plan of Treatment: Future Appointments (+ 6 months) and Future Tests (+/- 45 days) The Plan of Treatment section includes future care activities for the patient from [facility] [place] [facility]. This section includes future appointments and future [...] 02, 2023 01:00 PM AMBULATORY - [facility]ICINE [facility] August 02, 2023 01:30 PM AMBULATORY MEDICINE [facility] August 23, 2023 01:50 PM AMBULATORY - MEDICINE [facility] Lab Results: +/- 30 days of [...] Range Comment Apr 09, 2023 11:43 AM [place] TSH Specimen Type: SERUM Comment: Hemolysis present analysis cannot be performed. Hemolysis present may falsly elevate Potassium Total and Direct Bili, Iron, AST, %Fe. Ordering Provider: NATALIE SMITH Report Released Date/Time: Mar 27, 2023 03:03 PM Reporting Lab: [address] [place] [address] Performing Lab: [address] [address] TSH 1.16 u[IU]/mL 0.35-5.00 Apr 09, 2023 11:43 AM [place] LIPID PANEL FASTING Specimen Type: SERUM Comment: Hemolysis present analysis cannot be performed. Hemolysis present may falsly elevate Potassium Total and Direct Bili, Iron, AST, %Fe. Ordering Provider: NATALIE SMITH Report Released Date/Time: Mar 27, 2023 03:03 PM Reporting Lab: [address] [address] Performing Lab: [place] [address] CHOLESTEROL 174 mg/dL TRIGLYCERIDE 91 mg/dL 0-150 LDL calculated 112 mg/dL 0-129 CHOL/HDL 4.0 HDL CHOLESTEROL 44 mg/dL 40-60 Apr 09, 2023 11:43 AM [place] BASIC METABOLIC PANEL (fasting) Specime n Type: SERUM Comment: Hemolysis present analysis cannot be performed. Hemolysis present may falsly elevate Potassium Total and Direct Bili, Iron, AST, %Fe. Ordering Provider: NATALIE SMITH Report Released Date/Time: Mar 27, 2023 03:03 PM Reporting Lab: [address] [address] Performing Lab: [address] [address] UREA NITROGEN 19 mg/dL 7-25 GLUCOSE 84 mg/dL 65-100 SODIUM 142 mmol/L 135-145 POTASSIUM 4.0 mmol/L 3.5-5.0 CHLORIDE 111 mmol/L H 100-110 CO2 23 meq/L 20-30 CREATININE, Serum 0.99 mg/dL 0.50-1.40 eGFR(CKD-EPI 2020) 78 mL/min >60 Apr 09, 2023 11:43 AM [place] LIVER FUNCTION Specimen Type: SERUM Comment: Hemolysis present analysis cannot be performed. Hemolysis present may falsly elevate Potassium Total and Direct Bili, Iron, AST, %Fe. Ordering Provider: NATALIE SMITH Report Released Date/Time: Mar 27, 2023 03:03 PM Reporting Lab: [address] [address] Performing Lab: [address] [address] PROTEIN,TOTAL 6.8 g/dL 6.0-8.3 ALBUMIN 3.8 g/dL 3.5-5.0 ALKALINE PHOSPHATASE 101 U/L 40-150 AST 20 U/L 5-34 ALT 23 U/L BILIRUBIN, TOTAL comment mg/dL 0.2-1.2 Apr 09, 2023 11:43 AM [place] HEMOGLOBIN A1C PANEL Specimen Type: BLOOD Comment: [...] Mar 27, 2023 03:03 PM Reporting Lab: [address] [address] Performing Lab: [address] [address] HEMOGLOBIN A1C 5.4 4.0-5.6 Apr 09, 2023 11:43 AM [place] CBC AND DIFF (AUTO) Specimen Type: BLOOD No comment entered. Ordering Provider: NATALIE SMITH Report Released Date/Time: Mar 27, 2023 03:03 PM Reporting Lab: [address] [address] Performing Lab: [address] [address] WBC 7.15 10*3/uL 4.50-11.00 RBC 4.89 10*6/uL 4.23-5.66 HGB 15.9 g/dL 12.8-17 HCT 47.0 39.2-50.4 MCV 96.1 fL 82-99 MCHC 33.8 g/dL 30.8-35.1 PLT 207 10*3/uL 140-360 RDW-CV 13.2 12.0-16.0 [place], Abs 0.57 10*3/uL 0.30-1.10 MCH 32.5 pg 26.2-32.6 Neut % 63.8 43.7-75.8 Lymph % 19.3 14.0-42.3 [place] % 8.0 5.1-13.7 Eos % 7.8 H 0.4-6.8 Baso % 0.8 0.1-2.0 Neut, Abs 4.56 10*3/uL 2.20-7.60 Lymph, Abs 1.38 10*3/uL 1.00-3.20 Eos, Abs 0.56 10*3/uL H 0.03-0.44 Baso, Abs 0.06 10*3/uL 0.01-0.13 Immature Gran % 0.3 0.0-0.7 Immature Gran, Abs 0.02 10*3/uL 0.00-0.06 Vital Signs: All taken on the encounter date This section contains inpatient and outpatient Vital Signs collected on the date of the Encounter. Date/Time Temperature Pulse Blood Pressure Respiratory Rate SP02 Pain Height Weight Body Mass Index Source Apr 09, 2023 10:58 AM 98.1 F 84 /min 134/77 mm[Hg] 95 % 207.8 lb 30 [place] Social History: Smoking Status (Most current) and [...] Current Smoking Status Comment Cris ity May 13, 2021 02:00 PM [place]-TOBACCO FORMER USER [place] Tobacco Use History This section includes a history of the smoking, or tobacco-related health factors, that were collected on or before the date of the Encounter. The data comes from the [place] facility where the Encounter took place. Date/Time Smoking Status/Tobacco Use Comment F acility May 13, 2021 02:00 PM VA-TOBACCO QUIT 1 TO < 5 YRS [place] May 04, 2020 10:00 AM VA-TOBACCO USE 5 TO 15 YEARS [place] May 04, 2020 10:00 AM VA-TOBACCO USE ADVICE [place] May 04, 2020 10:00 AM VA-TOBACCO USE PEDIATRIC CLINICAL NURSE SPECIALIST NO [place] May 04, 2020 10:00 AM VA-TOBACCO USE MED NO [place] May 04, 2020 10:00 AM VA-TOBACCO USE WI 30 MIN OF [place] May 04, 2020 10:00 AM VA-TOBACCO USER EVERY DAY [place] Apr 29, 2018 10:23 AM VA-TOBACCO USE 30 YEARS OR MORE [place] Apr 29, 2018 10:23 AM VA-TOBACCO USE ADVICE [place] Apr 29, 2018 10:23 AM VA-TOBACCO USE PEDIATRIC CLINICAL NURSE SPECIALIST NO [place] Apr 29, 2018 10:23 AM VA-TOBACCO USE MED NO [place] Apr 29, 2018 10:23 AM VA-TOBACCO USE WI 30 MIN OF [facility] Apr 29, 2018 10:23 AM VA-TOBACCO USER EVERY DAY [place] Mar 22, 2018 11:15 AM VA-TOBACCO FORMER USER [place] Mar 22, 2018 11:15 AM VA-TOBACCO QUIT 1 TO < 5 YRS [place] Apr 09, 2017 10:22 AM QUIT TOBACCO USE I N PAST YEAR reports quitting 4 months ago [place] Mar 21, 2016 01:22 PM CURRENT SMOKER [facility] Mar 21, 2016 01:22 PM V1-PT NOT INTEREST ED IN QUIT TOBACCO USE [place] Mar 11, 2015 10:58 AM CURRENT SMOKER 6 cigarettes/d [place] Mar 11, 2015 10:58 AM V1-PT DECLINES REF TO TOBACCO CESS [facility] Mar 11, 2015 10:58 AM V1-PT DECLINES TOB ACCO CESSATION [facility] Mar 11, 2015 10:58 AM V1-PT THINKING ABO UT QUIT TOBACCO USE [place] Mar 19, 2014 10:41 AM CURRENT SMOKER 5-6 cigarettes per day [place] Mar 19, 2014 10:41 AM V1-PT DECLINES REF TO TOBACCO CESS [facility] Mar 19, 2014 10:41 AM V1-PT DECLINES TOB ACCO CESSATION [facility] Mar 19, 2014 10:41 AM V1-PT THINKING ABO UT QUIT TOBACCO USE [place] Jun 02, 2013 02:03 PM V1-PT THINKING ABO UT QUIT TOBACCO USE [place] Nov 29, 2012 01:32 PM CURRENT SMOKER Pt stated that he smokes about 6 cigaretts a day [place] Nov 29, 2012 01:32 PM V1-PT DECLINES REF TO TOBACCO CESS [facility] Nov 29, 2012 01:32 PM V1-PT DECLINES TOB ACCO CESSATION [facility] Nov 29, 2012 01:32 PM V1-PT THINKING ABO UT QUIT TOBACCO USE [place] Apr 30, 2012 01:32 PM V1-PT THINKING ABO UT QUIT TOBACCO USE [place] Apr 30, 2012 01:32 PM V1-TOBACCO CESS ME DS NOT PRESCRIBED PCP WILL ORDER THIS [place] Jun 01, 2011 08:37 AM CURRENT SMOKER Pt. states hi smokes 5-6 cigerettes a day. [place] Jun 01, 2011 08:37 AM V1-PT DECLINES REF TO TOBACCO CESS [facility] Jun 01, 2011 08:37 AM V1-PT NOT INTEREST ED IN QUIT TOBACCO USE [place] Apr 27, 2010 09:07 AM CURRENT SMOKER smoker for 50 yrs...smokes 6-8 cigarettes per day [place] Apr 27, 2010 09:07 AM V1-PT DECLINES REF TO TOBACCO CESS [facility] Apr 27, 2010 09:07 AM V1-PT DECLINES TOB ACCO CESSATION [facility] Apr 27, 2010 09:07 AM V1-PT NOT INTEREST ED IN QUIT TOBACCO USE [place] Sep 13, 2009 10:38 AM V1-PT DECLINES REF TO TOBACCO CESS [facility] Sep 13, 2009 10:38 AM V1-PT THINKING ABO UT QUIT TOBACCO USE [place] Mar 09, 2009 01:15 PM CURRENT SMOKER 10 cigarettes per day [place] Mar 09, 2009 01:15 PM V1-PT DECLINES REF TO TOBACCO CESS [facility] Mar 09, 2009 01:15 PM V1-PT THINKING ABO UT QUIT TOBACCO USE [place] Feb 04, 2008 12:51 PM CURRENT SMOKER Patient states he smokes a pack of ciggs per day. [place] Feb 04, 2008 12:51 PM V1-PT DECLINES REF TO TOBACCO CESS [facility] Feb 04, 2008 12:51 PM V1-PT READY TO RAFA T TOBACCO USE [place] Mar 14, 2007 01:11 PM V1-PT DECLINES REF TO TOBACCO CESS [facility] Mar 14, 2007 01:11 PM V1-PT READY TO RAFA T TOBACCO USE [place] Jun 19, 2006 08:10 AM CURRENT SMOKER counselled [place] Jun 13, 2005 08:55 AM QUIT TOBACCO USE I N PAST YEAR continue bupropion [place] Nov 17, 2004 09:20 AM CURRENT SMOKER 1 pack a day [place] Jun 23, 2003 02:22 PM CURRENT SMOKER 1ppd x 30yrs [place] Encounter Notes: All associated encounter notes This section contains the clinical notes associated to the Encounter. Date/Time Encounter Note(s) Provider Source Jul 04, 2023 04:35 PM ADDENDUM: LOCAL TITLE: Addendum STANDARD TITLE: ADDENDUM DATE OF NOTE: JUL 04, 2023@16:35:12 ENTRY DATE: JUL 04, 2023@16:35:13 AUTHOR: Dell MASON COSIGNER: URGENCY: STATUS: COMPLETED Please notify patient this is nonformulary in the [facility]. he can fill [facility]. Thank you /haritha/ NATALIE MASON MD PHYSICIAN Signed: 07/04/2023 16:35 Receipt Acknowledged By: 07/05/2023 13:34 /es/ KILO HALEY LPN LPN --- Original Document --- 07/03/23 OUTPATIENT MEDICATION REQUEST: Medication Request Date of Request: Jul Date: July Prescriber Name/Tel/Fax: Raquel Smith [facility] [address] T:[phone] RX: Ciclopirox Olamine Cream 0.77% Externally Sig: One application Twice daily for Tinea pedis of both feet Disp: 60 Refills: 2 Notes: Requests for MAIL /es/ NOEMI GUERRERO RN REGISTERED NURSE Signed: 07/03/2023 14:32 Receipt Acknowledged By: 07/04/2023 16:35 /haritha/ NATALIE MASON MD PHYSICIAN 07/05/2023 ADDENDUM STATUS: UNSIGNED You may not VIEW this UNSIGNED Addendum. STEFAN MASON ALONSO Jul 03, 2023 02:28 PM MEDICATION MGT NOT E: LOCAL TITLE: OUTPATIENT MEDICATION REQUEST STANDARD TITLE: MEDICATION MGT NOTE DATE OF NOTE: JUL 03, 2023@14:28 ENTRY DATE: JUL 03, 2023@14:28:51 AUTHOR: NOEMI GUERRERO COSIGNER: URGENCY: STATUS: COMPLETED OUTPATIENT MEDICATION REQUEST Has ADDENDA Medication Request Date of Request: Jul Date: July Prescriber Name/Tel/Fax: Raquel Smith [facility] [address] T:[phone] RX: Ciclopirox Olamine Cream 0.77% Externally Sig: One application Twice daily for Tinea pedis of both feet Disp: 60 Refills: 2 Notes: Requests for MAIL /es/ NOEMI GUERRERO RN REGISTERED NURSE Signed: 07/03/2023 14:32 Receipt Acknowledged By: 07/04/2023 16:35 /haritha/ NATALIE MASON MD PHYSICIAN 07/04/2023 ADDENDUM STATUS: COMPLETED Please notify patient this is nonformulary in the [facility]. he can fill prescription in [facility]. Thank you /haritha/ NATALIE MASON MD PHYSICIAN Signed: 07/04/2023 16:35 Receipt Acknowledged By: 07/05/2023 13:34 /haritha/ KILO HALEY LPN LPN 07/05/2023 ADDENDUM STATUS: COMPLETED CONTACTED AND MESSAGE DELIVERED, HE ILL GO TO [facility]. /haritha/ KILO HALEY LPN LPN Signed: 07/05/2023 13:34 NOEMI GUERRERO May 28, 2023 08:22 AM LETTERS: LOCAL TITLE: PATIENT LETTER (B) STANDARD TITLE: LETTERS DATE OF NOTE: MAY 28, 2023@08:22 ENTRY DATE: MAY 28, 2023@08:22:29 AUTHOR: Dell MASON COSIGNER: URGENCY: STATUS: COMPLETED MAY 28, 2023 ADRIANA JOSÉ [address] [place] [address], [phone] Dear ADRIANA JOSÉ, Thank you for coming in for your lab tests. Your recent test results are as follows: 1. LDL cholesterol above the goal, I changed atorvastatin to rosuvastatin 40 mg to take daily. 04/09/2023 11:43 BLOOD !! HEMOGLOBIN A1C 5.4 % 4.0 - 5.6 04/09/2023 11:43 BLOOD WBC 7.15 K/cmm 4.50 - 11.00 RBC 4.89 M/cmm 4.23 - 5.66 HGB 15.9 g/dL 12.8 - 17 HCT 47.0 % 39.2 - 50.4 MCV 96.1 fl 82 - 99 MCH 32.5 pg 26.2 - 32.6 MCHC 33.8 g/dL 30.8 - 35.1 RDW-CV 13.2 % 12.0 - 16.0 PLT 207 K/cmm 140 - 360 04/09/2023 11:43 SERUM !! TSH 1.16 uIU/mL 0.35 - 5.00 !! CREATININE, Serum 0.99 mg/dL 0.50 - 1.40 !! eGFR(CKD-EPI 2020 78 mL/min Ref: >=60 !! SODIUM 142 mmol/L 135 - 145 !! POTASSIUM 4.0 mmol/L 3.5 - 5.0 !! CHLORIDE 111 H mmol/L 100 - 110 !! CO2 23 mEq/L 20 - 30 !! UREA NITROGEN 19 mg/dL 7 - 25 !! GLUCOSE 84 mg/dL 65 - 100 !! PROTEIN,TOTAL 6.8 g/dL 6.0 - 8.3 !! ALBUMIN 3.8 g/dL 3.5 - 5.0 !! ALK HAYES 101 U/L 40 - 150 !! AST 20 U/L 5 - 34 !! BILIRUBIN, TOTAL comment mg/dL 0.2 - 1.2 !! CHOLESTEROL 174 mg/dL <7 - 199 !! TRIGLYCERIDE 91 mg/dL 0 - 150 !! LDL calculated 112 mg/dL 0 - 129 !! CHOL/HDL 4.0 !! ALT 23 U/L <6 - 55 !! HDL CHOLESTEROL 44 mg/dL 40 - 60 If you do not already do so, going forward, I invite you to view your labs in [facility] If you are not able to view them, you might need to upgrade your account to premium. Please call [phone] and speak with my nurse Noemi if you have any questions or concerns. Sincerely, Natalie Javier MD [facility] - Primary Care [address] [place] [phone] STEFAN MASON [place] Apr 09, 2023 02:12 PM ADDENDUM: LOCAL TITLE: Addendum STANDARD TITLE: ADDENDUM DATE OF NOTE: APR 09, 2023@14:12:21 ENTRY DATE: APR 09, 2023@14:12:22 AUTHOR: PAIGE VILLEGAS EXP COSIGNER: URGENCY: STATUS: COMPLETED Consult placed and held for provider signature. /es/ PAIGE VILLEGAS RN REGISTERED NURSE Signed: 04/09/2023 14:12 Receipt Acknowledged By: 04/09/2023 14:15 /haritha/ NATALIE MASON MD PHYSICIAN --- Original Document --- 04/09/23 NOTE: Pt is 77 y/o M current smoker with PMH of Overweight, HTN, HL, prediabetes, Skin cancer/melanoma, [place] lymphoma s/p small bowel resection - 08/2020- PCP is Dr Zachery Rios in [place] - q3-4m last 01/2023 Last visit .2022 Other providers: -eye [facility] -podiatry [place] -dermatology - [place] [facility] - q6m -hem/on[place] [facility] [place] Dr. Metzger pt reports doing well, has no new concerns #skin cancer, melanoma follow-up of his skin cancer, q6m with dermatology -h/o BCC scalp h/o melanoma nasal x 3 (last 2022 nasal s/p removal) #NHL s/p small bowel resection 2020 completed chemotherapy R CHOP 03/2021 - less energy since chemo f/w hem/onc Last ECHO 12/2020 EF 50-55% Surveillance CT scan (q6m) last 3 months ago per patient with no evidence of disease #HTN/HL BP always wnl at doctor's office in 110s/70s compliant with medications denies CP/SOB/GARCIA/palpitations/dizzin ess /claudication denies h/o mi/cva #Overweight BMI 29 stable weight Appetite good eating better since dental protestant after chemotherapy had all teeth extracted, placed implants and dentures walking daily 10 min - brisk walking decreased energy since chemo #tobacco Cut down smoking since on buproprion Currently smoking up to 4-5 cigarette/week- not interested to quit completed SCP in the past PAST MEDICAL HISTORY: -- obesity ->overweight -- HTN -- HL -- prediabetes A1c [...] small bowel resection - 08/2020- ALLERGIES:NKDA MEDICATIONS: ATORVASTATIN 40MG TAB LISINOPRIL 5MG FLUOROURACIL 5% CREAM APPLY A THIN LAYER TOPICALLY TWICE ACTIVE DAILY APPLY TO SCALP AND TEMPLES TWICE DAILY UNTIL RED AND CRUSTED FOR UP TO FOUR WEEKS Non-VA MULTIVITAMIN/MINERALS -MULTIVIT/OPHTH AREDS2/LUTE/ZEAX CAP/ BACLOFEN 20MG TAB TID BUPROPION HCL 150MG 12HR SA ONCE DAILY POLYETHYLENE GLYCOL 3350 [address]A FAMILY HISTORY: --DM: no --Cancer:-- family history of melanoma mother cervical cancer - dies in early 30s Brother colon cancer in 70s --GA: no --CVA:no --Mental Health/addiction: --Other:father of PNA SOCIAL HISTORY: --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 --Cohabitation: , lives alone, has GF of 30y --Children: 2 adult children --Diet: red meat 1-2/week, salad daily, 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 --Exercise:walking 10 min daily --Caffeine: decaf --EtOH: rare 3 beers/port wine /year --Tob: current smoker, up to 7 cig/day, h/o 60 PPDY last 10 years [...] pruritus/rash PHYSICAL EXAM: Vital Signs: Blood Pressure: 134/77 (04/09/2023 10:58) 139/80 (05/11/2022 10:20) 125/87 (05/13/2021 14:37) [place]: 84 (04/09/2023 10:58) Respiration: 16 Temperature: 98.1 F [36.7 C] (04/09/2023 10:58) BMI:29 Patient Weight: 207.8 lb [94.26 kg] (04/09/2023 10:58) 206.9 lb [93.85 kg] (05/11/2022 10:20) 218.6 lb [99.4 kg] (05/01/2019 08:59) 202 lb [91.8 kg] (05/13/2021 14:37) GA: NAD, AOX3 NECK: supple, no JVD, no LAD, no thyromegaly or masses, CVS: RRR Lungs: CTA b/l ABD:Soft,NT/ND EXT: no edema Ambulates without assistance LABORATORY: will get labs today [facility] Lab BMP: GLUCOSE 108 BUN 18 CREATININE 1.10 SODIUM 142 K+ 4.4 CL 107 CO2 25 CBC: WBC 6.8 RBC 4.71 HGB 15.4 HCT 45.4 MCV 96.4 MCH 32.7 MCHC 33.9 RDW 13.1 PLT 207 EOS % 9.3 BASO % 0.6 EOSABS 0.6 LIPID PANEL: CHOL 175 TRIG 75 LDL 114 LIVER PANEL: T. PROT 6.5 ALBUMIN 3.9 T. BILI 0.4 AST 18 CA 9.4 IMAGING #10/2021 LDCT Left upper lobe 6.6 [...] without evidence of leakage. 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 03/2021 (6 cycles) Echo with normal ejection fraction 50 to 55% (12/2020) Cure rate with chemo around 60 to 70% Restaging CT scan 03/2021 no evidence for residual/recurrent disease in abdomen pelvis last scan 3 m ago with MARK f/w oncology with imaging q6m #overweight -c/w daily exercise -discussed diet #HTN: well controlled on ACEI #HL LDL 114 #CAD -mild scattered coronary calcification on CT scan -asymptomatic -c/w ATORVASTATIN 40MG TAB -c/w LISINOPRIL 5MG -check lytes, lipid panel today #tobacco use: h/o >60PPDY, not ready to quit, with buproprion able to decrease smoking -declined referral to [facility] -c/w buproprion #lung nodule -last CT chest 08/2022 with oncology c/w annual screening with non [place] provider #LUTS: U/A negative,per pt PSA cheked by non [place] PCP pt self dc/d tamsulosin, LUTS not bothersome at this time Healthcare maintenance: --Lipids: LDL 114 (01/2022) --Diabetes: A1c 5.5 (10/2019) --Colon CA (50-75): colonoscopy l [facility]- 2006 diverticulosis 07/2020 Dr Metzger B colonoscopy with polypectomy (5mm R colon- removed TA) poor prep --> repeat colonoscopy in 6-12m --Lung CA: due 09/2023 pt aware if he has surveillance CT C/A/P with oncology no need to have CT chest at the [place] 08/2022 LDCT with oncology - no lung nodule f/u -continue with annual screening --PSA n/a --AAA (smoker/65): 2012 no AAA --Influenza (yrly): 2021 --COVID x5 --PCV13 2015 --PCV23: 2016 --HZV (>60yrs, x1): 2013 --RZV (>50yrs, x2): --TDAP: 2012 --Hep C screen: 2004 neg --HIV screen: --DEXA: --Advanced Directives: Return to clinic to see me in _6__ months, sooner PRN. Virtual ( ), F2F ( x ) ( x)fasting labs ordered prior to f/u routine -please obtain oncology note and pcp prior to next visit -Please place new referral for colonoscopy Dr Metzger, patient had last colonoscopy in 2020, 1 tubular adenoma removed, due to poor prep recommendation was to repeat colonoscopy in 6 to 12 months with 2-day prep. Thank you Medication Reconciliation: Outpatient: Has the patient been taking medications as documented in the EMLR? YES: The patient has been taking medications as documented in the EMLR. Essential Medication List for Review used to complete this medication reconciliation. INCLUDED IN THIS LIST: Alphabetical list of active outpatient prescriptions dispensed from this [place] (local) and dispensed from another [place] or [facility] facility (remote) as well as inpatient orders [...] whether with a VA or non-VA provider. /haritha/ NATALIE MASON MD PHYSICIAN Signed: 04/09/2023 13:04 Receipt Acknowledged By: 04/09/2023 14:12 /haritha/ PAIGE VILLEGAS RN REGISTERED NURSE 04/09/2023 13:21 /haritha/ PAIGE GALLEGOS Apr 09, 2023 11:00 AM PHYSICIAN NOTE: LOCAL TITLE: NOTE STANDARD TITLE: PHYSICIAN NOTE DATE OF NOTE: APR 09, 2023@11:00 ENTRY DATE: APR 08, 2023@23:13:07 AUTHOR: Dell MASON EXP COSIGNER: URGENCY: STATUS: COMPLETED NOTE Has ADDENDA Pt is 77 y/o M current smoker with PMH of Overweight, HTN, HL, prediabetes, Skin cancer/melanoma, [place] lymphoma s/p small bowel resection - 08/2020- PCP is Dr Zachery Rios in [place] - q3-4m last 01/2023 Last visit 2 Other providers: -eye [place] -podiatry [place] -dermatology - [place] [facility] - q6m -hem/on[place] [facility] [place] pt reports doing well, has no new concerns #skin cancer, melanoma follow-up of his skin cancer, q6m with dermatology -h/o BCC scalp h/o melanoma nasal x 3 (last 2022 nasal s/p removal) #NHL s/p small bowel resection 2020 completed chemotherapy R [facility] 03/2021 - less energy since chemo f/w hem/onc Last ECHO 12/2020 EF 50-55% Surveillance CT scan (q6m) last 3 months ago per patient with no evidence of disease #HTN/HL BP always wnl at doctor's office in 110s/70s compliant with medications denies CP/SOB/GARCIA/palpitations/dizzin ess /claudication denies h/o mi/cva #Overweight BMI 29 stable weight Appetite good eating better since dental protestant after chemotherapy had all teeth extracted, placed implants and dentures walking daily 10 min - brisk walking decreased energy since chemo #tobacco Cut down smoking since on buproprion Currently smoking up to 4-5 cigarette/week- not interested to quit completed SCP in the past PAST MEDICAL HISTORY: -- obesity ->overweight -- HTN -- HL -- prediabetes A1c [...] small bowel resection - 08/2020- ALLERGIES:NKDA MEDICATIONS: ATORVASTATIN 40MG TAB LISINOPRIL 5MG FLUOROURACIL 5% CREAM APPLY A THIN LAYER TOPICALLY TWICE ACTIVE DAILY APPLY TO SCALP AND TEMPLES TWICE DAILY UNTIL RED AND CRUSTED FOR UP TO FOUR WEEKS Non-VA MULTIVITAMIN/MINERALS -MULTIVIT/OPHTH AREDS2/LUTE/ZEAX CAP/ BACLOFEN 20MG TAB TID BUPROPION HCL 150MG 12HR SA ONCE DAILY POLYETHYLENE GLYCOL 3350 ORA FAMILY HISTORY: --DM: no --Cancer:-- family history of melanoma mother cervical cancer - dies in early 30s Brother colon cancer in 70s --GA: no --CVA:no --Mental Health/addiction: --Other:father of PNA SOCIAL HISTORY: --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 --Cohabitation: , lives alone, has GF of 30y --Children: 2 adult children --Diet: red meat 1-2/week, salad daily, 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 --Exercise:walking 10 min daily --Caffeine: decaf --EtOH: rare 3 beers/port wine /year --Tob: current smoker, up to 7 cig/day, h/o 60 PPDY last 10 years [...] pruritus/rash PHYSICAL EXAM: Vital Signs: Blood Pressure: 134/77 (04/09/2023 10:58) 139/80 (05/11/2022 10:20) 125/87 (05/13/2021 14:37) [place]: 84 (04/09/2023 10:58) Respiration: 16 Temperature: 98.1 F [36.7 C] (04/09/2023 10:58) BMI:29 Patient Weight: 207.8 lb [94.26 kg] (04/09/2023 10:58) 206.9 lb [93.85 kg] (05/11/2022 10:20) 218.6 lb [99.4 kg] (05/01/2019 08:59) 202 lb [91.8 kg] (05/13/2021 14:37) GA: NAD, AOX3 NECK: supple, no JVD, no LAD, no thyromegaly or masses, CVS: RRR Lungs: CTA b/l ABD:Soft,NT/ND EXT: no edema Ambulates without assistance LABORATORY: will get labs today [facility] Lab BMP: GLUCOSE 108 BUN 18 CREATININE 1.10 SODIUM 142 K+ 4.4 CL 107 CO2 25 CBC: WBC 6.8 RBC 4.71 HGB 15.4 HCT 45.4 MCV 96.4 MCH 32.7 MCHC 33.9 RDW 13.1 PLT 207 EOS % 9.3 BASO % 0.6 EOSABS 0.6 LIPID PANEL: CHOL 175 TRIG 75 LDL 114 LIVER PANEL: T. PROT 6.5 ALBUMIN 3.9 T. BILI 0.4 AST 18 CA 9.4 IMAGING #10/2021 LDCT Left upper lobe 6.6 [...] without evidence of leakage. 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 03/2021 (6 cycles) Echo with normal ejection fraction 50 to 55% (12/2020) Cure rate with chemo around 60 to 70% Restaging CT scan 03/2021 no evidence for residual/recurrent disease in abdomen pelvis last scan 3 m ago with MARK f/w oncology with imaging q6m #overweight -c/w daily exercise -discussed diet #HTN: well controlled on ACEI #HL LDL 114 #CAD -mild scattered coronary calcification on CT scan -asymptomatic -c/w ATORVASTATIN 40MG TAB -c/w LISINOPRIL 5MG -check lytes, lipid panel today #tobacco use: h/o >60PPDY, not ready to quit, with buproprion able to decrease smoking -declined referral to [facility] -c/w buproprion #lung nodule -last CT chest 08/2022 with oncology c/w annual screening with non [place] provider #LUTS: U/A negative,per pt PSA cheked by non [place] PCP pt self dc/d tamsulosin, LUTS not bothersome at this time Healthcare maintenance: --Lipids: LDL 114 (01/2022) --Diabetes: A1c 5.5 (10/2019) --Colon CA (50-75): colonoscopy l [facility]- 2006 diverticulosis 07/2020 Dr Yassine Mendoza colonoscopy with polypectomy (5mm R colon- removed TA) poor prep --> repeat colonoscopy in 6-12m --Lung CA: due 09/2023 pt aware if he has surveillance CT C/A/P with oncology no need to have CT chest at the [place] 08/2022 LDCT with oncology - no lung nodule f/u -continue with annual screening --PSA n/a --AAA (smoker/65): 2012 no AAA --Influenza (yrly): 2021 --COVID x5 --PCV13 2015 --PCV23: 2016 --HZV (>60yrs, x1): 2012 --RZV (>50yrs, x2): --TDAP: 2012 --Hep C screen: 2004 neg --HIV screen: --DEXA: --Advanced Directives: Return to clinic to see me in _6__ months, sooner PRN. Virtual ( ), F2F ( x ) ( x)fasting labs ordered prior to f/u routine -please obtain oncology note and pcp prior to next visit -Please place new referral for colonoscopy Dr Metzger, patient had last colonoscopy in 2020, 1 tubular adenoma removed, due to poor prep recommendation was to repeat colonoscopy in 6 to 12 months with 2-day prep. Thank you Medication Reconciliation: Outpatient: Has the patient been taking medications as documented in the EMLR? YES: The patient has been taking medications as documented in the EMLR. Essential Medication List for Review used to complete this medication reconciliation. INCLUDED IN THIS LIST: Alphabetical list of active outpatient prescriptions dispensed from this [place] (local) and dispensed from another [place] or [facility] facility (remote) as well as inpatient orders [...] whether with a VA or non-VA provider. /haritha/ NATALIE MASON MD PHYSICIAN Signed: 04/09/2023 13:04 Receipt Acknowledged By: 04/09/2023 14:12 /haritha/ PAIGE VILLEGAS RN REGISTERED NURSE 04/09/2023 13:21 /haritha/ RENNY HERNANDEZ 04/09/2023 ADDENDUM STATUS: COMPLETED Consult placed and held for provider signature. /shalini VILLEGAS RN REGISTERED NURSE Signed: 04/09/2023 14:12 Receipt Acknowledged By: 04/09/2023 14:15 /shalini MASON MD PHYSICIAN STEFAN MAS[facility] [place]
--- OUTSIDE RECORDS SUMMARY | 2024-03-12 09:33 | XMS_ITS ---
Author Name [facility] [place] Address [address] [place] [id number] Care Team Providers Care Geomorphologist Name Role Phone NATALIE MASON Primary Care [...] PART A Jul 02, 2011 PART A [id number] ADRIANA JOSÉ PATIENT MEDICARE (WNR) MEDICARE (M) PART B Jul 02, 2011 PART B [id number] ADRIANA JOSÉ PATIENT MEDICARE (WNR) MEDICARE (M) PART A Jul 02, 2011 PART A [id number] [phone] ADRIANA JOSÉ PATIENT MEDICARE (WNR) MEDICARE (M) PART B Jul 02, 2011 PART B [id number] ADRIANA JOSÉ PATIENT MEDICARE (WNR) MEDICARE (M) PART A Jul 02, 2011 PART A [id number] ADRIANA JOSÉ PATIENT MEDICARE (WNR) MEDICARE (M) PART A Jul 02, 2011 PART A [id number] [phone] ADRIANA JOSÉ PATIENT MEDICARE (WNR) MEDICARE (M) PART B Jul 02, 2011 PART B [id number] [id number] [phone] ADRIANA JOSÉ PATIENT MEDICARE (WNR) MEDICARE (M) PART B Jul 02, 2011 PART B [id number] ADRIANA JOSÉ PATIENT [place] [employer] [facility] MEDIC ARE SUPPL EMENT Jul 02, 2011 CORE [id number] [phone] ADRIANA JOSÉ PATIENT [place] [employer] SUPPLEMEN [place] MEDIC ARE PREFE RRED Apr 02, 2015 CORE [id number] ADRIANA JOSÉ PATIENT [employer] [employer] SUPPLEMEN [place] MEDIC ARE SUPPL EMENT Jul 02, 2011 CORE [id number] [phone] ADRIANA JOSÉ PATIENT Selected Encounter This section includes the information on record at [place] for the Encounter. Date/Time Encounter Type Encounter Description Reason Pro vider Source Jul 02, 2023 01:10 PM Outpatient Encounter PRIMARY CARE/MEDICINE IHE Encounter Template Text not used by [place] Plan of Treatment: Future Appointments (+ 6 months) and Future Tests (+/- 45 days) The Plan of Treatment section includes future care activities for the patient from all [place] treatmentfacilities. This section includes future appointments and future orders which are active, pending or scheduled. Future Appointments This section includes appointments that were scheduled to occur 6 months from the date of the Encounter, up to a maximum of 20 appointments. The data comes from all [place] treatment facilities. Appointment Date/Time Appointment Type Appointme nt Facility Name August 02, 2023 01:00 PM AMBULATORY - MEDICINE [place] [facility] [place] [facility] August 02, 2023 01:30 PM AMBULATORY - MEDICINE [place] [facility] [place] [facility] August 23, 2023 01:50 PM AMBULATORY - MEDICINE [place] [facility] [place] [facility] Nov 28, 2023 01:30 PM AMBULATORY - MEDICINE [place] [facility] [facility] Nov 28, 2023 02:00 PM [facility] Social History: Smoking Status (Most current) and Tobacco Use (All prior to encounter date) This section includes the most current, and the historical, smoking and tobacco- related health factors from the [place] facility where the Encounter took place. Current Smoking Status This section includes the most current smoking, or tobacco-related health factor, from the [place] facility where the Encounter took place. Date/Time Current Smoking Status Comment Facil ity May 11, 2022 10:21 AM VA-TOBACCO USER EVERY DAY [facility] Tobacco Use History This section includes a history of the smoking, or tobacco-related health factors, that were collected on or before the date of the Encounter. The data comes from the [place] facility where the Encounter took place. 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 Date/Time Encounter Note(s) Provider Source Jul 02, 2023 01:10 PM PRIMARY CARE NOTE: LOCAL TITLE: WALK-IN NOTE PRIMARY CARE (T) STANDARD TITLE: PRIMARY CARE NOTE DATE OF NOTE: JUL 02, 2023@13:10 ENTRY DATE: JUL 02, 2023@13:10:43 AUTHOR: LEOPOLDO FUENTES EXP COSIGNER: URGENCY: STATUS: COMPLETED <====Click to Start Advanced Medical Support [place] presents to the Primary Care clinic with the following request: [ ]Medication Renewal/Refill [ ]Consultation with Team RN [ ]Symptoms [ X ]Other The states they are: [ ]Waiting [ X ]Not Waiting No Walk in visit scheduled with PACT Nurse [ X ] At this encounter the [place]'s demographics were verified. [ X ] At this encounter the [place]way's Insurance information was verified. [ X ] At this encounter the below scheduled visits for the [place] were discussed and appointment reminder card was offered. Future appointments: 08/02/2023 13:00 NHM/OPT/VISUAL IMAGING 08/02/2023 13:30 CWM/NO/OPTOMETRY/MERHAR 08/23/2023 13:50 COM CARE-OTHER DROPPED OFF SCRIPT FROM BERTRAM LOPEZ THAT NEEDS TO BE BE RE-WRITTEN. PLEASE MAIL SCRIPT [facility] SCRIPT PLACED IN PROVIDER MAIL BOX /haritha/ LEOPOLDO FUENTES ADVANCE RN RESEARCH Signed: 07/02/2023 13:15 Receipt Acknowledged By: 07/03/2023 14:33 /es/ DEL GUERRERO RN REGISTERED NURSE 07/05/2023 09:52 /es/ LIZETH GOMEZ LPN, VICKI M [place]
--- OUTSIDE RECORDS SUMMARY | 2024-03-12 09:33 | XMS_ITS | Encounter Summary ---
Author Name [facility] [place] Address [address] [place] [id number] Care Team Providers Care Commercial Appraiser Name Role Phone NATALIE MASON Primary Care [...] PART A Jul 02, 2011 PART A [id number] ADRIANA JOSÉ PATIENT MEDICARE (WNR) MEDICARE (M) PART B Jul 02, 2011 PART B [id number] GC22 ADRIANA JOSÉ PATIENT MEDICARE (WNR) MEDICARE (M) PART A Jul 02, 2011 PART A [id number] GC22 ADRIANA JOSÉ PATIENT MEDICARE (WNR) MEDICARE (M) PART B Jul 02, 2011 PART B [id number] GC22 ADRIANA JOSÉ PATIENT MEDICARE (WNR) MEDICARE (M) PART A Jul 02, 2011 PART A [id number] GC22 ADRIANA JOSÉ PATIENT MEDICARE (WNR) MEDICARE (M) PART A Jul 02, 2011 PART A [id number] GC22 [phone] ADRIANA JOSÉ PATIENT MEDICARE (WNR) MEDICARE (M) PART B Jul 02, 2011 PART B [id number] GC22 [phone] ADRIANA JOSÉ PATIENT MEDICARE (WNR) MEDICARE (M) PART B Jul 02, 2011 PART B [id number] GC22 ADRIANA JOSÉ PATIENT [place] [employer] SUPP[employer] MEDIC ARE SUPPL EMENT Jul 02, 2011 CORE [id number] ADRIANA JOSÉ PATIENT [employer] [employer] SUPPLEMEN [place] MEDIC ARE PREFE RRED Apr 02, 2015 CORE [id number] ADRIANA JOSÉ PATIENT [employer] SU[employer] MEDIC ARE SUPPL EMENT Jul 02, 2011 CORE [id number] ADRIANA JOSÉ PATIENT Selected Encounter This section includes the information on record at [place] for the Encounter. Date/Time Encounter Type Encounter Description Reason Pro vider Source Apr 09, 2023 11:03 AM Outpatient Encounter PRIMARY CARE/MEDICINE IHE Encounter Template Text not used by [place] Plan of Treatment: Future Appointments (+ 6 months) and Future Tests (+/- 45 days) The Plan of Treatment section includes future care activities for the [facility] [place] [facility] This section includes future appointments and future orders which are active, pending or scheduled. Future Appointments This section includes appointments that were scheduled to occur 6 months from the date of the Encounter, up to a maximum of 20 appointments. The data comes from all [place] treatment facilities. Appointment Date/Time Appointment Type Appointme nt Facility Name August 02, 2023 01:00 PM AMBULATORY - MEDICINE [place] [facility] [place] [facility] August 02, 2023 01:30 PM AMBULATORY - MEDICINE [place] [facility] [place] [facility] August 23, 2023 01:50 PM AMBULATORY - MEDICINE [place] [facility] [place] [facility] Lab Results: +/- 30 days of the encounter This section includes the Chemistry and Hematology Lab Results on record with [place] for the patient. Radiology Reports and Pathology Reports are provided separately, in subsequent sections. Lab Results This section contains the Chemistry/Hematology Results that were resulted 30 days before or 30 daysafter the date of the Encounter. Date/Time Source Result Type Result - Unit Interpretation Reference Range Comment Apr 09, 2023 11:43 AM [facility] HEMOGLOBIN A1C PANEL Specimen Type: BLOOD Comment: [...] 27, 2023 03:03 PM Reporting Lab: [address] [address] Performing Lab: [address] [address] HEMOGLOBIN A1C 5.4 4.0-5.6 Apr 09, 2023 11:43 AM [facility] TSH Specimen Type: SERUM Comment: Hemolysis present analysis cannot be performed. Hemolysis present may falsly elevate Potassium Total and Direct Bili, Iron, AST, %Fe. Ordering Provider: NATALIE SMITH Report Released Date/Time: Mar 27, 2023 03:03 PM Reporting Lab: [address] [address] Performing Lab: [address] [address] TSH 1.16 u[IU]/mL 0.35-5.00 Apr 09, 2023 11:43 AM [facility] LIPID PANEL FASTING Specimen Type: SERUM Comment: Hemolysis present analysis cannot be performed. Hemolysis present may falsly elevate Potassium Total and Direct Bili, Iron, AST, %Fe. Ordering Provider: NATALIE SMITH Report Released Date/Time: Mar 27, 2023 03:03 PM Reporting Lab: [address] [address] Performing Lab: [address] [address] CHOLESTEROL 174 mg/dL TRIGLYCERIDE 91 mg/dL 0-150 LDL calculated 112 mg/dL 0-129 CHOL/HDL 4.0 HDL CHOLESTEROL 44 mg/dL 40-60 Apr 09, 2023 11:43 AM [facility] LIVER FUNCTION Specimen Type: SERUM Comment: Hemolysis present analysis cannot be performed. Hemolysis present may falsly elevate Potassium Total and Direct Bili, Iron, AST, %Fe. Ordering Provider: NATALIE SMITH Report Released Date/Time: Mar 27, 2023 03:03 PM Reporting Lab: [address] [address] Performing Lab: [address] [address] PROTEIN,TOTAL 6.8 g/dL 6.0-8.3 ALBUMIN 3.8 g/dL 3.5-5.0 ALKALINE PHOSPHATASE 101 U/L 40-150 AST 20 U/L 5-34 ALT 23 U/L BILIRUBIN, TOTAL comment mg/dL 0.2-1.2 Apr 09, 2023 11:43 AM [facility] BASIC METABOLIC PANEL (fasting) Specime n Type: SERUM Comment: Hemolysis present analysis cannot be performed. Hemolysis present may falsly elevate Potassium Total and Direct Bili, Iron, AST, %Fe. Ordering Provider: NATALIE SMITH Report Released Date/Time: Mar 27, 2023 03:03 PM Reporting Lab: [address] [address] Performing Lab: [address] [address] UREA NITROGEN 19 mg/dL 7-25 GLUCOSE 84 mg/dL 65-100 SODIUM 142 mmol/L 135-145 POTASSIUM 4.0 mmol/L 3.5-5.0 CHLORIDE 111 mmol/L H 100-110 CO2 23 meq/L 20-30 CREATININE, Serum 0.99 mg/dL 0.50-1.40 eGFR(CKD-EPI 2020) 78 mL/min >60 Apr 09, 2023 11:43 AM [facility] CBC AND DIFF (AUTO) Specimen Type: BLOOD No comment entered. Ordering Provider: NATALIE SMITH Report Released Date/Time: Mar 27, 2023 03:03 PM Reporting Lab: [facility] [address] [facility] [address] Performing Lab: [facility] [address] [facility] [address] WBC 7.15 10*3/uL 4.50-11.00 RBC 4.89 10*6/uL 4.23-5.66 HGB 15.9 g/dL 12.8-17 HCT 47.0 39.2-50.4 MCV 96.1 fL 82-99 MCHC 33.8 g/dL 30.8-35.1 PLT 207 10*3/uL 140-360 RDW-CV 13.2 12.0-16.0 Andrews, Abs 0.57 10*3/uL 0.30-1.10 MCH 32.5 pg 26.2-32.6 Neut % 63.8 43.7-75.8 Lymph % 19.3 14.0-42.3 Andrews % 8.0 5.1-13.7 Eos % 7.8 H [...] and tobacco- related health factors from the [place] facility where the Encounter took place. Current Smoking Status This section includes the most current smoking, or tobacco-related health factor, from the [place] facility where the Encounter took place. Date/Time Current Smoking Status Comment Cris house May 11, 2022 10:21 AM VA-TOBACCO USER EVERY DAY [facility] Tobacco Use History This section includes a history of the smoking, or tobacco-related health factors, that were collected on or before the date of the Encounter. The data comes from the [place] facility where the Encounter took place. 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 Date/Time Encounter Note(s) Provider Source Apr 09, 2023 11:03 AM PREVENTIVE MEDICIN E NURSING NOTE: LOCAL TITLE: CLINICAL REMINDERS/NURSING STANDARD TITLE: PREVENTIVE MEDICINE NURSING NOTE DATE OF NOTE: APR 09, 2023@11:03 ENTRY DATE: APR 09, 2023@11:03:36 AUTHOR: KILO HALEY EXP COSIGNER: URGENCY: STATUS: COMPLETED CLINICAL REMINDERS/NURSING Has ADDENDA Tobacco Pack Year History: Patient currently uses cigarettes: How many years has the patient smoked? # of years 50 Average number of packs/day over the entire time patient smoked: Packs/day 1 Homelessness/Food Insecurity Screen: In the past 2 months, have you been living in stable housing that you own, rent, or stay in as part of a household? Yes - Living in stable housing. Are you worried or concerned that in the next 2 months you may NOT have stable housing that you own, rent, or stay in as part of a household? No - Not worried about housing near future The reports the following: Within the past 12 months, you worried whether your food would run out before you got money to buy more. Never true Within the past 12 months, the food you bought just didn't last and you didn't have money to get more. Never true Falls & Incontinence Screen: Falls Screen: 4. No falls within the past year. Incontinence Screen No incontinence. Influenza Immunization: The patient has received the seasonal influenza vaccine for the current season at another location. Documented: INFLUENZA, UNSPECIFIED FORMULATION Historical Date Administered: Dec 2022 Exact date unknown Information Source: SOURCE UNSPECIFIED Advance Directive Screen MH AD: Patient has an up-to-date Advance Directive at an outside, non-[place] facility and was asked to forward a copy to his/her clinician. Comment: advised to bring copy COVID VACCINE - WILL SHCEDULE WHEN READY /haritha/ KILO HALEY LPN LPN Signed: 04/09/2023 11:05 04/09/2023 ADDENDUM STATUS: COMPLETED Melanoma Follow-up: Patient is followed by Dermatology OUTSIDE this [facility], for Melanoma F/U. Last Visit: March, ? Exact date is unknown Location: Outside Healthcare Provider Prognosis: sees [place] dermatology /haritha/ KILO HALEY LPN LPN Signed: 04/09/2023 11:07 KILO HLAEY
--- OUTSIDE RECORDS SUMMARY | 2024-03-12 09:33 | XMS_ITS ---
Author Name [place] Address [address] [place] [id number] Care Team Providers Care Ep Technologist Name Role Phone NATALIE MASON Primary Care [...] PART A Jul 02, 2011 PART A [id number] ADRIANA JOSÉ PATIENT MEDICARE (WNR) MEDICARE (M) PART B Jul 02, 2011 PART B [id number] ADRIANA JOSÉ PATIENT MEDICARE (WNR) MEDICARE (M) PART B Jul 02, 2011 PART B [id number] ADRIANA JOSÉ PATIENT MEDICARE (WNR) MEDICARE (M) PART A Jul 02, 2011 PART A [id number] ADRIANA JOSÉ PATIENT MEDICARE (WNR) MEDICARE (M) PART A Jul 02, 2011 PART A [id number] GC22 [phone] ADRIANA JOSÉ PATIENT MEDICARE (WNR) MEDICARE (M) PART A Jul 02, 2011 PART A [id number] ADRIANA JOSÉ PATIENT MEDICARE (WNR) MEDICARE (M) PART B Jul 02, 2011 PART B [id number] [id number] ADRIANA JOSÉ PATIENT MEDICARE (WNR) MEDICARE (M) PART B Jul 02, 2011 PART B [id number] GC22 ADRIANA JOSÉ PATIENT [place] [employer] SUPPLEMEN [place]IM[place] MEDIC ARE SUPPL EMENT Jul 02, 2011 CORE [id number] ADRIANA JOSÉ PATIENT [place] [employer] MEDICARE SUPPLEMEN [place]IM[place] MEDIC ARE PREFE RRED Apr 02, 2015 CORE [id number] ADRIANA JOSÉ PATIENT [place] [employer] MEDIC[employer] SUPPLEMEN SHIM[place] MEDIC ARE SUPPL EMENT Jul 02, 2011 CORE [id number] ADRIANA JOSÉ PATIENT Selected Encounter This section includes the information on record at [place] for the Encounter. Date/Time Encounter Type Encounter Description Reason Pro vider Source Jun 07, 2023 01:20 PM Outpatient Encounter ADMIN PAT ACTIVTIES (MASNONCT) IHE Encounter Template Text not used by [place] Plan of Treatment: Future Appointments (+ 6 months) and Future Tests (+/- 45 days) The Plan of Treatment section includes future care activities for the patient from [facility] [place] [facility] This section includes future appointments and future orders which are active, pending or scheduled. Future Appointments This section includes appointments that were scheduled to occur 6 months from the date of the Encounter, up to a maximum of 20 appointments. The data comes from all [place] treatment facilities. Appointment Date/Time Appointment Type Appointme nt Facility Name August 02, 2023 01:00 PM AMBULATORY - MEDICINE [place] [facility] August 02, 2023 01:30 PM AMBULATORY - MEDICINE [place] [facility] August 23, 2023 01:50 PM AMBULATORY - MEDICINE [place] [facility] Nov 28, 2023 01:30 PM AMBULATORY - MEDICINE [facility] NTRL [place] [facility] Nov 28, 2023 02:00 PM AMBULATORY - MEDICINE [facility] Social History: Smoking Status (Most current) and Tobacco Use (All prior to encounter date) This section includes the most current, and the historical, smoking and tobacco- related health factors from the [place] facility where the Encounter took place. Current Smoking Status This section includes the most current smoking, or tobacco-related health factor, from the [place] facility where the Encounter took place. Date/Time Current Smoking Status Comment Facil ity May 11, 2022 10:21 AM VA-TOBACCO USER [facility] Tobacco Use History This section includes a history of the smoking, or tobacco-related health factors, that were collected on or before the date of the Encounter. The data comes from the [place] facility where the Encounter took place. 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 Date/Time Encounter Note(s) Provider Source Jun 07, 2023 01:20 PM PHARMACY NOTE: LOCAL TITLE: V1 PHARMACY CUSTOMER CARE MEDICATION RENEWAL STANDARD TITLE: PHARMACY NOTE DATE OF NOTE: JUN 07, 2023@13:20 ENTRY DATE: JUN 07, 2023@13:20:23 AUTHOR: KENDAL PATEL COSIGNER: URGENCY: STATUS: COMPLETED Date: May Division: [facility] referred by Pharmacy Call Center for medication renewal: Non-controlled/maintena nce medication Medications requested: [id number] MULTIVIT/OPHTH AREDS2/LUTE/ZEAX CAP/TAB Defer to specialty clinic To be mailed . Please review and renew if appropriate. *This note was generated by [facility]/[place] Pharmacy Customer Care. If you have any questions or need assistance, do not contact this author. Please refer all questions to your local, on-site pharmacy departments. /haritha/ KENDAL PATEL CPhT Locker Attendant, [place]/Pharmacy Customer Care Signed: 06/07/2023 13:29 Receipt Acknowledged By: 06/07/2023 13:33 /haritha/ VLAD PALOMARES OD Cigar Bander Hand KENDAL PATEL [place] CNTRL WSN [facility]
--- OUTSIDE RECORDS SUMMARY | 2024-03-12 09:34 | XMS_ITS ---
Author Name Department [place] Address [address] [place] [address] Care Team Providers Care Gas Well Drilling Manager Name Role Phone NATALIE AMSON Primary Care Provide r Unavailable Insurance Providers: [...] PART A Jul 02, 2011 PART A [id number] ADRIANA JOSÉ PATIENT MEDICARE (WNR) MEDICARE (M) PART B Jul 02, 2011 PART B [id number] GC22 [phone] ADRIANA JOSÉ PATIENT MEDICARE (WNR) MEDICARE (M) PART A Jul 02, 2011 PART A [id number] [id number] ADRIANA JOSÉ PATIENT MEDICARE (WNR) MEDICARE (M) PART B Jul 02, 2011 PART B [id number] GC22 [phone] ADRIANA JOSÉ PATIENT MEDICARE (WNR) MEDICARE (M) PART A Jul 02, 2011 PART A [id number] GC22 [phone] ADRIANA JOSÉ PATIENT MEDICARE (WNR) MEDICARE (M) PART A Jul 02, 2011 PART A [id number] [id number] ADRIANA JOSÉ PATIENT MEDICARE (WNR) MEDICARE (M) PART B Jul 02, 2011 PART B [id number] [id number] ADRIANA JOSÉ PATIENT MEDICARE (WNR) MEDICARE (M) PART B Jul 02, 2011 PART B [id number] [id number] [phone] ADRIANA JOSÉ PATIENT [place] [employer] SUPPLEMEN [place] MEDIC ARE SUPPL EMENT Jul 02, 2011 CORE [id number] ADRIANA JOSÉ PATIENT [place] [employer] MEDICARE SUPPLEMEN [place] MEDIC ARE PREFE RRED Apr 02, 2015 CORE [id number] ADRIANA JOSÉ PATIENT [place] [employer]IC[employer] SUPPLEMEN [place] MEDIC ARE SUPPL EMENT Jul 02, 2011 CORE [id number] [phone] ADRIANA JOSÉ PATIENT Selected Encounter This section includes the information on record at [place] for the Encounter. Date/Time Encounter Type Encounter Description Reason Pro vider Source Jun 22, 2023 12:00 AM Outpatient Encounter EVENT (HISTORICAL) IHE Encounter Template Text not used by [place] Plan of Treatment: Future Appointments (+ 6 months) and Future Tests (+/- 45 days) The Plan of Treatment section includes future care activities for the patient from all [place] treatmentfacilities. This section includes future appointments and future orders which are active, pending or scheduled. Future Appointments This section includes appointments that were scheduled to occur 6 months from the date of the Encounter, up to a maximum of 20 appointments. The data comes from all [place] treatment facilities. Appointment Date/Time Appointment Type Appointme nt Facility Name August 02, 2023 01:00 PM AMBULATORY - MEDICINE [place] [facility] August 02, 2023 01:30 PM AMBULATORY - MEDICINE [place] [facility] August 23, 2023 01:50 PM AMBULATORY - MEDICINE [place] [facility] Nov 28, 2023 01:30 PM AMBULATORY - MEDICINE [place] [facility] Nov 28, 2023 02:00 PM AMBULATORY - MEDICINE [facility] Social History: Smoking Status (Most current) and Tobacco Use (All prior to encounter date) This section includes the most current, and the historical, smoking and tobacco- related health factors from the [place] facility where the Encounter took place. Current Smoking Status This section includes the most current smoking, or tobacco-related health factor, from the [place] facility where the Encounter took place. Date/Time Current Smoking Status Comment Facil ity May 11, 2022 10:21 AM VA-TOBACCO USER EVERY DAY [facility] Tobacco Use History This section includes a history of the smoking, or tobacco-related health factors, that were collected on or before the date of the Encounter. The data comes from the [place] facility where the Encounter took place. 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 Date/Time Encounter Note(s) Provider Source Jun 22, 2023 12:00 AM NURSING ADMINISTRA TIVE NOTE: LOCAL TITLE: NON-VA PRESCRIPTION STANDARD TITLE: NURSING ADMINISTRATIVE NOTE DATE OF NOTE: JUN 22, 2023 ENTRY DATE: JUL 10, 2023@08:52:16 AUTHOR: JEANNA HOOPER EXP COSIGNER: URGENCY: STATUS: COMPLETED VistA Imaging - Scanned Document SCANNED DOCUMENT SIGNATURE NOT REQUIRED Electronically Filed: 07/10/2023 by: JEANNA FONG [facility]
--- OUTSIDE RECORDS SUMMARY | 2024-03-12 09:35 | XMS_ITS | Encounter Summary ---
Author Name [facility] [place] Organization [place] Address [address] [place] [id number] Care Team Providers Care Rn Ent Name Role Phone NATALIE MASON Primary Care [...] PART A Jul 02, 2011 PART A [id number] ADRIANA JOSÉ PATIENT MEDICARE (WNR) MEDICARE (M) PART B Jul 02, 2011 PART B [id number] GC22 [phone] ADRIANA JOSÉ PATIENT MEDICARE (WNR) MEDICARE (M) PART B Jul 02, 2011 PART B [id number] [id number] ADRIANA JOSÉ PATIENT MEDICARE (WNR) MEDICARE (M) PART A Jul 02, 2011 PART A [id number] GC22 [phone] ADRIANA JOSÉ PATIENT MEDICARE (WNR) MEDICARE (M) PART A Jul 02, 2011 PART A [id number] GC22 [phone] ADRIANA JOSÉ PATIENT MEDICARE (WNR) MEDICARE (M) PART A Jul 02, 2011 PART A [id number] [id number] [phone] ADRIANA JOSÉ PATIENT MEDICARE (WNR) MEDICARE (M) PART B Jul 02, 2011 PART B [id number] ADRIANA JOSÉ PATIENT MEDICARE (WNR) MEDICARE (M) PART B Jul 02, 2011 PART B [id number] ADRIANA JOSÉ PATIENT [place] [employer] SUPP[employer]MEN [place] MEDIC ARE SUPPL EMENT Jul 02, 2011 CORE [id number] [phone] ADRIANA JOSÉ PATIENT [place] [employer] MEDICARE SUPPLEMEN [place] MEDIC ARE PREFE RRED Apr 02, 2015 CORE [id number] ADRIANA JOSÉ PATIENT [place] [employer] MED[employer] SUPPLEMEN [employer] MEDIC ARE SUPPL EMENT Jul 02, 2011 CORE [id number] ADRIANA JOSÉ PATIENT Selected Encounter This section includes the information on record at [place] for the Encounter. Date/Time Encounter Type Encounter Description Reason Provider Source Nov 28, 2023 01:30 PM CPTR OPHTH DX IMG POST SEGMT OPTOMETRY ICD-10-CM H40.013 Open angle with borderline findings, low risk, bilateral ELIF BAKER [facility] Encounter Template Text not used by [place] Assessments - Encounter Diagnoses This section includes the primary and secondary diagnoses documented for the Encounter. Date/Time Primary/Secondary Diagnosis Diagnosis Name Provider Source Nov 28, 2023 02:47 PM PRIMARY Open angle with borderline findings, low risk, bilateral ELIF BAKER [facility] [place] [facility] Nov 28, 2023 02:47 PM SECONDARY Nexdtve age-related mclr degn, bilateral, early dry stage [facility]AKER [facility] [place] [facility] Plan of Treatment: Future Appointments (+ 6 months) and Future Tests (+/- 45 days) The Plan of Treatment section includes future care activities for the patient from all [place] treatmentfacilities. This section includes future appointments and future orders which are active, pending or scheduled. Future Appointments This section includes appointments that were scheduled to occur 6 months from the date of the Encounter, up to a maximum of 20 appointments. The data comes from all [place] treatment facilities. Appointment Date/Time Appointment Type Appointme nt Facility Name Jan 16, 2024 01:30 PM AMBULATORY - MEDICINE [place] C [place] [facility] Feb 07, 2024 01:30 PM AMBULAT[facility] May 29, 2024 02:00 PM AMBULATORY - MEDICINE [place] [facility] N[facility] TRN [facility] Active, Pending, and Scheduled Orders This section includes a listing of several types of active, pending, and scheduled orders, including clinic medications orders, diagnostic test orders, procedure orders and consult orders; where the start date of the order is 45 days before the date of the Encounter or 45 days after the date of theEncounter. The data comes from all [place] treatment facilities. Test Date/Time Test Type Test Details Facility Name Nov 28, 2023 02:39 PM Consult Order COMMUNITY CARE-OPHTHALMOLOGY Cons R D Internship's Choice [facility] Social History: Smoking Status (Most current) and Tobacco Use (All prior to encounter date) This section includes the most current, and the historical, smoking and tobacco- related health factors from the [place] facility where the Encounter took place. Current Smoking Status This section includes the most current smoking, or tobacco-related health factor, from the [place] facility where the Encounter took place. Date/Time Current Smoking Status Comment Facil ity May 11, 2022 10:21 AM VA-TOBACCO USER EVERY DAY [facility] Tobacco Use History This section includes a history of the smoking, or tobacco-related health factors, that were collected on or before the date of the Encounter. The data comes from the [place] facility where the Encounter took place. Date/Time Smoking Status/Tobacco Use Comment F acility May 11, 2022 10:21 AM VA-TOBACCO USE ADVICE [place]TRL [place] [facility] May 11, 2022 10:21 AM VA-TOBACCO USE MARKETING DEVELOPER NO [place] CNTRL [place] [facility] May 11, 2022 10:21 AM VA-TOBACCO USE MED [facility] May 11, 2022 10:21 AM VA-TOBACCO USE WI 30 MIN OF WAKEUP [facility] May 11, 2022 10:21 AM VA-TOBACCO USER EVERY DAY [facility] Encounter Notes: All associated encounter notes This section contains the clinical notes associated to the Encounter. Date/Time Encounter Note(s) Provider Source Nov 28, 2023 02:45 PM OPTOMETRY NOTE: LOCAL TITLE: OPTOMETRY NOTE(T) STANDARD TITLE: OPTOMETRY NOTE DATE OF NOTE: NOV 28, 2023@14:45 ENTRY DATE: NOV 28, 2023@14:45:48 AUTHOR: ELIF BAKER EXP COSIGNER: URGENCY: STATUS: COMPLETED Results were viewed and clinical findings were reviewed with student administration internship and patient and results are in this note. Assessment and plan are reasonable. Patient remains low risk open-angle glaucoma suspect OU and early dry macular degeneration OU without subfoveal involvement. Follow-up as scheduled for today. /haritha/ ELIF BAKER OD STAFF E LEARNING COORDINATOR Signed: 11/28/2023 14:48 ELIF BAKER [facility] Nov 28, 2023 02:44 PM OPTOMETRY CONSULT: LOCAL TITLE: CONSULT REPORT/OPTOMETRY OCT STANDARD TITLE: OPTOMETRY CONSULT DATE OF NOTE: NOV 28, 2023@14:44 ENTRY DATE: NOV 28, 2023@14:44:21 AUTHOR: ROBI PONCE EXP COSIGNER: ELIF BAKER URGENCY: STATUS: COMPLETED RNFL OCT report: RNFL OCT reviewed for low risk open angle glaucoma suspect secondary to moderate cupping OU OD: Signal strength 8/10, average c/d 0.56, vertical c/d 0.47, disc area 2.26 mm^2. Average RNFL thickness 95 microns. No thinning noted all quadrants. OS: Signal strength 9/10, average c/d 0.69, vertical c/d 0.67, disc area 2.21 mm^2. Average RNFL thickness 74 microns. No thinning noted all quadrants. A/P: Low risk open angle glaucoma suspect secondary to moderate cupping OU. RNFL OCT reveals no focal thinning flagged on scans OU but there is a question of progressive thinning as compared to previous scans OS. IOP OU elevated today OS> OD. Positive family hx of glauocma in brother. Fundus exam reveals large nerves with moderate cupping and healthy rim appearance OU, peripapillary atrophy noted OS. CCT thicker than average OU. Repeat RNFL OCT required to prove true progression OS. RTC 6 months for IOP check and repeat RNFL OCT and HVF. 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 Fundus exam reveals small hard macular drusen and pigment mottling OU. 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 No retinal fluid observed today OU. Educated pt on findings; emphasized not smoking and taking AREDs BID po. RTC 1 year for JULIÁN /haritha/ ROBI PONCE OPTOMETRY STUDENT Signed: 11/28/2023 15:51 /haritha/ ELIF BAKER OD STAFF E LEARNING COORDINATOR Cosigned: 11/28/2023 15:53 ROBI PONCE CNTRL [facility]
--- OUTSIDE RECORDS SUMMARY | 2024-03-12 09:35 | XMS_ITS | Encounter Summary ---
Author Name [place] Address [address] [place] [id number] Care Team Providers Care Finish Inspector Name Role Phone NATALIE MASON Primary Care [...] PART A Jul 02, 2011 PART A [id number] ADRIANA JOSÉ PATIENT MEDICARE (WNR) MEDICARE (M) PART B Jul 02, 2011 PART B [id number] GC22 [phone] ADRIANA JOSÉ PATIENT MEDICARE (WNR) MEDICARE (M) PART A Jul 02, 2011 PART A [id number] GC22 [phone] ADRIANA JOSÉ PATIENT MEDICARE (WNR) MEDICARE (M) PART B Jul 02, 2011 PART B [id number] [id number] ADRIANA JOSÉ PATIENT MEDICARE (WNR) MEDICARE (M) PART A Jul 02, 2011 PART A [id number] [id number] ADRIANA JOSÉ PATIENT MEDICARE (WNR) MEDICARE (M) PART B Jul 02, 2011 PART B [id number] GC22 ADRIANA JOSÉ PATIENT MEDICARE (WNR) MEDICARE (M) PART A Jul 02, 2011 PART A [id number] GC22 [phone] ADRIANA JOSÉ PATIENT MEDICARE (WNR) MEDICARE (M) PART B Jul 02, 2011 PART B [id number] GC22 [phone] ADRIANA JOSÉ PATIENT [place] [employer] SUPPLEMEN [place]IM[place] MEDIC ARE SUPPL EMENT Jul 02, 2011 CORE [id number] ADRIANA JOSÉ PATIENT [place] [employer] MEDIC[employer] SUPPLEMEN [employer]IM[place] MEDIC ARE PREFE RRED Apr 02, 2015 CORE [id number] ADRIANA JOSÉ PATIENT [place] [employer] SUPPLEMEN [employer] MEDIC ARE SUPPL EMENT Jul 02, 2011 CORE [id number] ADRIANA JOSÉ PATIENT Selected Encounter This section includes the information on record at [place] for the Encounter. Date/Time Encounter Type Encounter Description Reason Pro vider Source Nov 27, 2023 04:53 PM Outpatient Encounter OPTOMETRY IHE Encounter Template Text not used by [place] Plan of Treatment: Future Appointments (+ 6 months) and Future Tests (+/- 45 days) The Plan of Treatment section includes future care activities for the patient from all [place] treatmentfacilities. This section includes future appointments and future orders which are active, pending or scheduled. Future Appointments This section includes appointments that were scheduled to occur 6 months from the date of the Encounter, up to a maximum of 20 appointments. The data comes from all [place] treatment facilities. Appointment Date/Time Appointment Type Appointme nt Facility Name Nov 28, 2023 01:30 PM AMBULATORY - MEDICINE [place] [facility] Nov 28, 2023 02:00 PM AMBULATORY - MEDICINE [place] [facility] Jan 16, 2024 01:30 PM AMBULATORY - MEDICINE [place] C [place] [facility] Feb 07, 2024 01:30 PM AMBULATORY - MEDICINE [facility] May 29, 2024 02:00 PM AMBULATORY - MEDICINE [facility] Active, Pending, and Scheduled Orders This section includes a listing of several types of active, pending, and scheduled orders, including clinic medications orders, diagnostic test orders, procedure orders and consult orders; where the start date of the order is 45 days before the date of the Encounter or 45 days after the date of theEncounter. The data comes from all [place] treatment facilities. Test Date/Time Test Type Test Details Facility Name Nov 28, 2023 02:39 PM Consult Order COMMUNITY CARE-OPHTHALMOLOGY Cons Burn Out Scarfing Operator's Choice [facility] Social History: Smoking Status (Most current) and Tobacco Use (All prior to encounter date) This section includes the most current, and the historical, smoking and tobacco- related health factors from the [place] facility where the Encounter took place. Current Smoking Status This section includes the most current smoking, or tobacco-related health factor, from the [place] facility where the Encounter took place. Date/Time Current Smoking Status Comment Cris ity May 11, 2022 10:21 AM VA-TOBACCO USER EVERY DAY [facility] Tobacco Use History This section includes a history of the smoking, or tobacco-related health factors, that were collected on or before the date of the Encounter. The data comes from the [place] facility where the Encounter took place. Date/Time Smoking Status/Tobacco Use Comment F acility May 11, 2022 10:21 AM VA-TOBACCO USE ADVICE [place] [facility] May 11, 2022 10:21 AM VA-TOBACCO USE COST ESTIMATOR NO [facility] [place] [facility] May 11, 2022 10:21 AM VA-TOBACCO USE MED NO [place] [facility] [facility] May 11, 2022 10:21 AM VA-TOBACCO USE WI 30 MIN OF WAKEUP [facility] [place] [facility] May 11, 2022 10:21 AM VA-TOBACCO USER EVERY DAY [facility] Encounter Notes: All associated encounter notes This section contains the clinical notes associated to the Encounter. Date/Time Encounter Note(s) Provider Source Nov 27, 2023 04:54 PM ADMINISTRATIVE NOTE: LOCAL TITLE: ADMINISTRATIVE NOTE STANDARD TITLE: ADMINISTRATIVE NOTE DATE OF NOTE: NOV 27, 2023@16:54 ENTRY DATE: NOV 27, 2023@16:54:04 AUTHOR: ELY STOUT EXP COSIGNER: URGENCY: STATUS: COMPLETED Call to 's phone #: [phone] [] HIPPA appropriate VM left [xx] Spoke to pt. [] Unable to reach d/t to remind vet of next appointment 11/28/2023 1:30:00 PM NHM/OPT/VISUAL IMAGING 11/28/2023 2:00:00 PM NHM/OPTOMETRY/BORASKI Patient encouraged to call Specialty Call Center @ [phone] x [phone] to cancel/reschedule if unable to make appt. /haritha/ GREGG GOMEZ PHYSICAL THERAPIST Signed: 11/27/2023 16:57 ELY STOUT [facility] [place] [facility]
--- OUTSIDE RECORDS SUMMARY | 2024-03-12 09:35 | XMS_ITS | Encounter Summary ---
Author Name [facility] Organization [facility] Address [address] [place] [id number] Care Team Providers Care Desktop Administrator Name Role Phone NATALIE MASON Primary Care [...] PART A Jul 02, 2011 PART A [id number] ADRIANA JOSÉ PATIENT MEDICARE (WNR) MEDICARE (M) PART B Jul 02, 2011 PART B [id number] ADRIANA JOSÉ PATIENT MEDICARE (WNR) MEDICARE (M) PART A Jul 02, 2011 PART A [id number] [phone] ADRIANA JOSÉ PATIENT MEDICARE (WNR) MEDICARE (M) PART B Jul 02, 2011 PART B [id number] [phone] ADRIANA JOSÉ PATIENT MEDICARE (WNR) MEDICARE (M) PART A Jul 02, 2011 PART A [id number] ADRIANA JOSÉ PATIENT MEDICARE (WNR) MEDICARE (M) PART B Jul 02, 2011 PART B [id number] ADRIANA JOSÉ PATIENT MEDICARE (WNR) MEDICARE (M) PART A Jul 02, 2011 PART A [id number] ADRIANA JOSÉ PATIENT MEDICARE (WNR) MEDICARE (M) PART B Jul 02, 2011 PART B [id number] ADRIANA JOSÉ PATIENT [place] [employer] ARE SUPPL EMENT Jul 02, 2011 CORE [id number] [phone] ADRIANA JOSÉ PATIENT [employer] [employer] ARE PREFE RRED Apr 02, 2015 CORE [id number] [phone] ADRIANA JOSÉ PATIENT [employer] ARE SUPPL EMENT Jul 02, 2011 CORE [id number] [phone] ADRIANA JOSÉ PATIENT Selected Encounter This section includes the information on record at [place] for the Encounter. Date/Time Encounter Type Encounter Description Reason Provider Source Nov 28, 2023 02:00 PM COMPRE OPH EXAM EST PT 1/> OPTOMETRY ICD-10-CM H40.013 Open angle with borderline findings, low risk, bilateral ELIF BAKER David Encounter Template Text not used by [place] Assessments - Encounter Diagnoses This section includes the primary and secondary diagnoses documented for the Encounter. Date/Time Primary/Secondary Diagnosis Diagnosis Name Provider Source Nov 28, 2023 02:44 PM PRIMARY Open angle with borderline findings, low risk, bilateral ELIF BAKER [place] [facility] [place] [facility] Nov 28, 2023 02:44 PM SECONDARY Age-related nuclear cataract, right eye ELIF BAKER [place] [facility] [place] [facility] Nov 28, 2023 02:44 PM SECONDARY Nexdtve age-related mclr degn, bilateral, early dry stage ELIF BAKER [place] [facility] [place] [facility] Plan of Treatment: Future Appointments (+ 6 months) and Future Tests (+/- 45 days) The Plan of Treatment section includes future care activities for the [facility] [place] [facility] This section includes future appointments and [...] 16, 2024 01:30 PM AMBULATORY - MEDICINE [place] C [facility] [place] [facility] Feb 07, 2024 01:30 PM AMBULATORY - MEDICINE [facility] May 29, 2024 02:00 PM AMBULATORY - MEDICINE [facility] [place] [facility] Active, Pending, and Scheduled Orders This section includes a listing of several types of active, pending, and scheduled orders, including clinic medications orders, diagnostic test orders, procedure orders and consult orders; where the start date of the order is 45 days before the date of the Encounter or 45 days after the date of theEncounter. The data comes from all [place] treatment facilities. Test Date/Time Test Type Test Details Facility Name Nov 28, 2023 02:39 PM Consult Order COMMUNITY CARE-OPHTHALMOLOGY Cons [facility]iver's [facility] Social History: Smoking Status (Most [...] 2022 10:21 AM VA-TOBACCO USER EVERY DAY [facility] [place] [facility] Tobacco Use History This section includes a history of the smoking, or tobacco-related health factors, that were collected on or before the date of the Encounter. The data comes from the [place] facility where the Encounter took place. 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 Date/Time Encounter Note(s) Provider Source Nov 28, 2023 02:12 PM OPTOMETRY NOTE: LOCAL TITLE: OPTOMETRY NOTE(T) STANDARD TITLE: OPTOMETRY NOTE DATE OF NOTE: NOV 28, 2023@14:12 ENTRY DATE: NOV 28, 2023@14:12:09 AUTHOR: ELIF BAKER EXP COSIGNER: URGENCY: STATUS: COMPLETED I saw this patient in conjunction with the student and agree to the stated findings and plan after reviewing both history and repeating ervin elements of physical exam. 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 Otherwise no other acute ocular disease was seen at today's exam. Ordered consult to [facility] for cataract extraction OD. The patient will return in 6 months to repeat glaucoma imaging especially for OS optic nerve fiber layer thinning. 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 Body mass index 25-29 - overweight 2. Benign Prostatic Hypertrophy without Outflow Obstruction (SCT 488080511) 3. History of adenomatous polyp of colon 4. Acute deep venous thrombosis of internal jugular vein 5. Non-Hodgkin lymphoma 6. H/O Malignant melanoma 7. Squamous cell carcinoma of skin 8. Benign essential hypertension (SNOMED CT 3236537) 9. Impaired fasting glucose (SNOMED CT 004648077) 10. Drug Hypersensitivity 11. Osteoarthrosis, unspecified whether generalized or localized, involving unsp 12. Rotator cuff (capsule) sprain or strain 13. Basal cell carcinoma of face (SNOMED CT 800564006) 14. Unspecified internal derangement of knee 15. family history of melanoma 16. Light tobacco smoker (SNOMED CT 268612810244882) 17. HEMATURIA 18. Spondylosis 19. Hyperlipidemia (SNOMED CT 24044759) 20. DEPRESSIVE DISORDER 21. Coronary arteriosclerosis Active Outpatient Medications (including Supplies): Active Outpatient Medications Status 1) BUPROPION HCL 150MG 12HR SA TAB TAKE ONE TABLET BY ACTIVE MOUTH ONCE DAILY 2) LISINOPRIL 5MG TAB TAKE ONE TABLET BY MOUTH ONCE ACTIVE DAILY TO CONTROL BLOOD PRESSURE 3) MULTIVIT/OPHTH AREDS2/LUTE/ZEAX CAP/TAB TAKE 1 ACTIVE CAPSULE BY MOUTH TWICE DAILY IN THE MORNING AND EVENING, WITH FOOD 4) ROSUVASTATIN CA 40MG TAB TAKE ONE TABLET BY MOUTH ACTIVE ONCE DAILY FOR CHOLESTEROL REPLACES ATORVASTATIN Active Non-VA Medications Status 1) Non-VA MULTIVITAMIN/MINERALS CAP/TAB 1 TABLET BY ACTIVE MOUTH 5 Total Medications Allergies: Patient has answered NKA All medications including those prescribed by outside VA's, community providers, and all OTC meds were reviewed and reconciled with patient to the best of their abilities. This 78 year old MALE is seen today for CEE Chief Complaint: Pt presents with c/o blurry vision OD. Had CE OS and has been putting off CE OD because it is his better eye, but feels it is probably time for surgery. Pt reports glare with headlights OD that is bothering hime. Ocular comfort is good. Pt interested in computer glasses, would consider bifocal for distance and computer. He notes that he gets headaches after an hour of computer use because he is straining. Pt notes that he would wait until after the cataract surgery to get new specs. Ocular Medications: Preservision at least once per day in morning, sometimes in evening if pt remembers. OHx: -h/o RD OS -pseudophakia OS -cataract OD -Low risk GLC suspect OU -mild dry ARMD OU -ref error and presbyopia OU (-) Pain: (+) SUAREZ: related to computer use, see above (-) Diplopia: (-) Flashes: (-) Floaters: (-) Amaurosis Fugax/Tia's: (-) Eye Injury: (+) Eye Surgery: retinoplexy OS, CE/PCIOL OS (-) TBI FOHx: (+) Glaucoma: brother (+) ARMD: brother VITALS (most recent, as listed in the electronic record): B/P: 134/77 (04/09/2023 10:58) Pulse: 84 (04/09/2023 10:58) Temperature: 98.1 F [36.7 C] (04/09/2023 10:58) Weight: 207.8 lb [94.26 kg] (04/09/2023 10:58) Height: 70 in [177.8 cm] (05/01/2019 08:59) BMI: BMI: 29.9 PERTINENT LABS: HEMOGLOBIN A1C TREND Collection DT Spec HGBA1c 04/09/2023 11:43 BLOOD 5.4 06/03/2021 08:41 BLOOD 5.4 03/11/2014 08:56 BLOOD 6.1 H (-) Smoker/Length of Time/PPD: 3-4 cigarettes per day Current Rx with last BCVA: OD -1.00 -1.50 x 085 20/20-1 OS plano -1.00 x 080 20/40+1 Add: +2.25 DVA ( )sc ( x )cc phoropter OD: 20/20-2 OS: 20/25-2 with moving gaze around Pupils: PERRL (-)APD EOMs: SAFE OU, (-)Pain/Diplopia CVF (facial, peripheral): FTFC OU Subjective Refraction: OD: -1.25 -1.25 x 085 no improvement OS: +0.50 -1.25 x 080 no improvement Add: +2.25 20/20-2 *no significant improvement in visual acuity with refraction, defer finalized Rx until after CE consult All the above performed by student, reviewed by attending Anterior segment: Performed by student, repeated by attending Lids: dermatochalasis OU, verucca central JOMAR Conj: white and quiet OU Cornea: clear OU AC: 1/2:1 T&N OD, >1:1 T&N OS Iris: flat and clear OU with pinpoint TID 2:00 and 5:00 OS Lens: 3+NS with tr PSC and vacuoles OD, PCIOL OS Tonometry: Anna Performed by student, reviewed by attending OD 20 mmHg OS 22 mmHg Time: 2:08pm Previous IOP (07/31/22): OD: 18 mmHg OS: 18 mmHg Time: 1:10pm Anna Previous Pachymetry: OD: 584um OS: 599um Fundus exam: Dilated: 2:08pm Dilating Drops: 1GTT 1 % Tropicamide OU & 1GTT 2.5% Phenylephrine OU(Pt. ed. on side effects, dilation warning given and verbal consent obtained) Patient advised not to drive if they feel they have any symptoms which could affect their ability to drive safely. Patient advised not to engage in any activities which could put themselves or others at risk if they feel they have any symptoms which could affect their ability to perform those activities safely. Performed by student, repeated by attending Vit: clear OU C/D: 0.50/0.50 OD, 0.60/0.60- OS Disc: OD: pink and distinct (-) Notching/drance heme OS: pink and distinct with PPA (-) Notching/drance heme Macula: flat with few small drusen and pigment mottling OU PPole: OD: clear OS: clear Vessels: OD: 2/3 OS: 2/3 Periph: flat and intact OD, chorioretinal scarring sup temp OS (-)holes, tears, detachments 360 OU Assessment/Plan: 1. Low risk open angle glaucoma suspect OU secondary to moderate cupping OU -IOP is elevated with thicker than average CCT -Moderate cupping of large nerves appears healthy and stable on fundus exam -No pseudoexfoliation or pigment dispersion -Known hx of glaucoma in brother -RNFL OCT shows question of progressive RNFL thinning OS as compared to previous scans, no focal areas of thinning noted on today's scan -RTC 6 months for repeat RNFL and HVF with IOP check 2. Early stage dry AMD OU -no fluid upon dilated fundus exam -Mac OCT reveals scattered drusen OU with inf temp retinal thinning OS likely secondary to h/o retinal detachment -educated pt on exam findings, emphasized importance of taking AREDs BID and not smoking -continue with AREDs BID po -monitor 3. Nuclear sclerosis cataracts OD -visually significant; glare at night -educated pt on exam findings, including tx options for CE consult at [facility] -pt opts to proceed with CE consult at this time -referral placed for CE consult with Dr. Simon -continue to monitor at CEE 4. Pseudophakia OS -stable OS -monitor at CEE 5. H/o Retinal Detachment OS -likely macula-off given acuity and previously measured retinal thinning -stable OCT findings to previous scans -monitor at CEE 6. Regular astigmatism and presbyopia OU -minimal change in refraction today with no improvement in visual acuity -no final Rx today, defer until after CE OD -monitor at CEE Return to Clinic 6 months or earlier PRN Education: After discussion and answering all 's questions, demonstrated and verbalized understanding of diagnosis and treatment. Yes [x] No [ ] Patient Education: Glaucoma: Patient was educated regarding glaucoma/glaucoma suspect as well as the natural history of this diagnosis including prognosis. Stress importance of compliance and persistency with glaucoma medication when prescribed, timely follow up as well as the role of ancillary testing. Exclusion criteria for ancillary testing include significantly reduced acuity, mental status changes affecting the patient's ability to attend to the test or other physical limitations that would prohibit the patient's ability to participate in testing. Macular Degeneration: Patient was educated regarding macular degeneration including both wet and dry varieties as well as the natural history and prognosis of this condition. Education included the role of amsler grid testing , ocular nutraceutical therapy as well as diet and healthy lifestyle choices when applicable. Exclusion criteria includes extremely reduced acuity or cognitive decline for amsler grid testing and other coexisting systemic contraindication for supplements, diet and exercise. Medication Reconciliation: Outpatient: Has the patient been taking medications as documented in the EMLR? YES: The patient has been taking medications as documented in the EMLR. Essential Medication List for Review used to complete this medication reconciliation. INCLUDED IN THIS LIST: Alphabetical list of active outpatient prescriptions dispensed from this [facility] (local) and dispensed from another VA or [facility] facility (remote) as well as inpatient orders [...] with a VA or non-VA provider. /haritha/ ROBI PONCE OPTOMETRY STUDENT Signed: 11/28/2023 15:53 /haritha/ ELIF BAKER OD STAFF SALES REPRESENTATIVE GROCERIES Cosigned: 11/28/2023 15:54 [facility]
--- OUTSIDE RECORDS SUMMARY | 2024-03-12 09:36 | XMS_ITS | Encounter Summary ---
Author Name [facility] [place] Address [address] [place] [address] Care Team Providers Care Cut Off Saw Set Up Operator Name Role Phone NATALIE MASON Primary Care [...] PART A Jul 02, 2011 PART A [id number] [phone] ADRIANA JOSÉ PATIENT MEDICARE (WNR) MEDICARE (M) PART B Jul 02, 2011 PART B [id number] [phone] ADRIANA JOSÉ PATIENT MEDICARE (WNR) MEDICARE (M) PART A Jul 02, 2011 PART A [id number] ADRIANA JOSÉ PATIENT MEDICARE (WNR) MEDICARE (M) PART A Jul 02, 2011 PART A [id number] ADRIANA JOSÉ PATIENT MEDICARE (WNR) MEDICARE (M) PART B Jul 02, 2011 PART B [id number] ADRIANA JOSÉ PATIENT MEDICARE (WNR) MEDICARE (M) PART B Jul 02, 2011 PART B [id number] [phone] ADRIANA JOSÉ PATIENT MEDICARE (WNR) MEDICARE (M) PART A Jul 02, 2011 PART A [id number] ADRIANA JOSÉ PATIENT MEDICARE (WNR) MEDICARE (M) PART B Jul 02, 2011 PART B [id number] ADRIANA JOSÉ PATIENT [place] [employer] MEDIC ARE SUPPL EMENT Jul 02, 2011 CORE [id number] ADRIANA JOSÉ PATIENT [place] [facility] [employer] [employer] SUPP[employer]MEN [place] MEDIC ARE PREFE RRED Apr 02, 2015 [facility] [id number] [phone] ADRIANA JOSÉ PATIENT [place] [facility] [employer] MEDIC[employer] SUPPLEMEN [place] MEDIC ARE SUPPL EMENT Jul 02, 2011 [facility] [id number] [phone] ADRIANA JOSÉ PATIENT Selected Encounter This section includes the information on record at [place] for the Encounter. Date/Time Encounter Type Encounter Description Reason Provider Source Feb 07, 2024 01:30 PM OFFICE O/P EST MOD 30 MIN PRIMARY CARE/MEDICINE ICD-10-CM Z00.8 Encounter for other general examination NATALIE SMITH [facility] Encounter Template Text not used by [place] Assessments - Encounter Diagnoses This section includes the primary and secondary diagnoses documented for the Encounter. 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 NATALIE SMITH [facility] Feb 07, 2024 02:35 PM SECONDARY Benign prostatic hyperplasia without lower urinry tract symp NATALIE SMITH [facility] Feb 07, 2024 02:35 PM SECONDARY Essential (primary) hypertension NATALIE SMITH [facility] Feb 07, 2024 02:35 PM SECONDARY Malignant melanoma of skin, unspecified JERRY-TALIBKO NATALIE ROPER [facility] Feb 07, 2024 02:35 PM SECONDARY Mixed hyperlipidemia JERRY-NATALIE COURTNEY [facility] Feb 07, 2024 02:35 PM SECONDARY Nicotine dependence, cigarettes, uncomplicated JERRY-NATALIE COURTNEY [facility] Feb 07, 2024 02:35 PM SECONDARY Non-Hodgkin lymphoma, unspecified, unspecified site NIRMALADIN-BOSKO JACQUELINNATALIE [facility] Feb 07, 2024 02:35 PM SECONDARY Obesity, unspecified NIRMALADIN-BOSKO JACQUELINNATALIE [facility] Feb 07, 2024 02:35 PM SECONDARY Other constipation JERRY-NATALIE COURTNEY [facility] Feb 07, 2024 02:35 PM SECONDARY Squamous cell carcinoma of skin, unspecified JERRY-NATALIE COURTNEY [facility] Plan of Treatment: Future Appointments (+ 6 months) and Future Tests (+/- 45 days) The Plan of Treatment section includes future care activities for the patient from all [place] [facility]. This section includes future appointments and future orders which are active, pending or scheduled. Future Appointments This section includes appointments that were scheduled to occur 6 months from the date of the Encounter, up to a maximum of 20 appointments. The data comes from all [facility]. Appointment Date/Time Appointment Type Appointme nt Facility Name May 29, 2024 02:00 PM AMBULATORY - MEDICINE [facility] Active, Pending, and Scheduled Orders This section includes a listing of several types of active, pending, and scheduled orders, including clinic medications orders, diagnostic test orders, procedure orders and consult orders; where the start date of the order is 45 days before the date of the Encounter or 45 days after the date of theEncounter. The data comes from all [facility]. Test Date/Time Test Type Test Details Facility Name Jan 31, 2024 12:00 AM Laboratory - Chemi stry Order BASIC METABOLIC PANEL (fasting) BLOOD (SST-SERUM) [facility] Jan 31, 2024 12:00 AM Laboratory - Chemi stry Order LIVER FUNCTION BLOOD (SST-SERUM) [facility] Jan 31, 2024 12:00 AM Laboratory - Chemi stry Order LIPID PANEL FASTING BLOOD (SST-SERUM) [facility] Jan 31, 2024 12:00 AM Laboratory - Chemi stry Order CBC AND DIFF (AUTO) BLOOD (LAV-BLOOD) [facility] Jan 31, 2024 12:00 AM Laboratory - Chemi stry Order TSH BLOOD (SST-SERUM) [facility] Jan 31, 2024 12:00 AM Laboratory - Chemi stry Order HEMOGLOBIN A1C PANEL BLOOD (LAV-BLOOD) [facility] Vital Signs: All taken on the encounter date This section contains inpatient and outpatient Vital Signs collected on the date of the Encounter. Date/Time Temperature Pulse Blood Pressure Respiratory Rate 02 Pain Height Weight Body Mass Index Source Feb 07, 2024 02:26 PM 135/85 [facility] Feb 07, 2024 01:44 PM 98.3 86 143/81 95 213.8 31 [facility] Social History: Smoking Status (Most current) [...] 13, 2021 02:00 PM VA-TOBACCO FORMER USER [facility] Tobacco Use History This section includes a history of the smoking, or tobacco-related health factors, that were collected on or before the date of the Encounter. The data comes from the [place] facility where the Encounter took place. 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 [facility] May 04, 2020 10:00 AM VA-TOBACCO USE MED NO [facility] May 04, 2020 10:00 AM VA-TOBACCO USE WI 30 MIN OF WAKEUP [facility] May 04, 2020 10:00 AM VA-TOBACCO USER EVERY DAY [facility] Apr 29, 2018 10:23 AM VA-TOBACCO USE 30 YEARS OR MORE [facility] Apr 29, 2018 10:23 AM VA-TOBACCO USE ADVICE [facility] Apr 29, 2018 10:23 AM VA-TOBACCO USE RUNNER WORKER NO [facility] Apr 29, 2018 10:23 AM VA-TOBACCO USE MED NO [facility] Apr 29, 2018 10:23 AM VA-TOBACCO USE WI 30 MIN OF WAKEUP [facility] Apr 29, 2018 10:23 AM VA-TOBACCO USER EVERY DAY [facility] Mar 22, 2018 11:15 AM VA-TOBACCO FORMER USER [facility] Mar 22, 2018 11:15 AM VA-TOBACCO QUIT 1 TO < 5 YRS [facility] Apr 09, 2017 10:22 AM QUIT TOBACCO USE I N PAST YEAR reports quitting 4 months ago [facility] Mar 21, 2016 01:22 PM CURRENT SMOKER [facility] Mar 21, 2016 01:22 PM V1-PT NOT INTEREST ED IN QUIT TOBACCO USE [facility] Mar 11, 2015 10:58 AM CURRENT SMOKER 6 cigarettes/d [facility] Mar 11, 2015 10:58 AM V1-PT DECLINES REF TO TOBACCO CESS [facility] Mar 11, 2015 10:58 AM V1-PT DECLINES TOB ACCO CESSATION [facility] Mar 11, 2015 10:58 AM V1-PT THINKING ABO UT QUIT TOBACCO USE [facility] Mar 19, 2014 10:41 AM CURRENT SMOKER 5-6 cigarettes per day [facility] Mar 19, 2014 10:41 AM V1-PT DECLINES REF TO TOBACCO CESS [facility] Mar 19, 2014 10:41 AM V1-PT DECLINES TOB ACCO CESSATION [facility] Mar 19, 2014 10:41 AM V1-PT THINKING ABO UT QUIT TOBACCO USE [facility] Jun 02, 2013 02:03 PM V1-PT THINKING ABO UT QUIT TOBACCO USE [facility] Nov 29, 2012 01:32 PM CURRENT SMOKER Pt stated that he smokes about 6 cigaretts a day [facility] Nov 29, 2012 01:32 PM V1-PT DECLINES REF TO TOBACCO CESS [facility] Nov 29, 2012 01:32 PM V1-PT DECLINES TOB ACCO CESSATION [facility] Nov 29, 2012 01:32 PM V1-PT THINKING ABO UT QUIT TOBACCO USE [facility] Apr 30, 2012 01:32 PM V1-PT THINKING ABO UT QUIT TOBACCO USE [facility] Apr 30, 2012 01:32 PM V1-TOBACCO CESS ME DS NOT PRESCRIBED PCP WILL ORDER THIS [facility] Jun 01, 2011 08:37 AM CURRENT SMOKER Pt. states hi smokes 5-6 cigerettes a day. [facility] Jun 01, 2011 08:37 AM V1-PT DECLINES REF TO TOBACCO CESS [facility] Jun 01, 2011 08:37 AM V1-PT NOT INTEREST ED IN QUIT TOBACCO USE [facility] Apr 27, 2010 09:07 AM CURRENT SMOKER smoker for 50 yrs...smokes 6-8 cigarettes per day [facility] Apr 27, 2010 09:07 AM V1-PT DECLINES REF TO TOBACCO CESS [facility] Apr 27, 2010 09:07 AM V1-PT DECLINES TOB ACCO CESSATION MEDS [facility] Apr 27, 2010 09:07 AM V1-PT NOT INTEREST ED IN QUIT TOBACCO USE [facility] Sep 13, 2009 10:38 AM V1-PT DECLINES REF TO TOBACCO CESS [facility] Sep 13, 2009 10:38 AM V1-PT THINKING ABO UT QUIT TOBACCO USE [facility] Mar 09, 2009 01:15 PM CURRENT SMOKER 10 cigarettes per day [facility] Mar 09, 2009 01:15 PM V1-PT DECLINES REF TO TOBACCO CESS [facility] Mar 09, 2009 01:15 PM V1-PT THINKING ABO UT QUIT TOBACCO USE [facility] Feb 04, 2008 12:51 PM CURRENT SMOKER Patient states he smokes a pack of ciggs per day. [facility] Feb 04, 2008 12:51 PM V1-PT DECLINES REF TO TOBACCO CESS [facility] Feb 04, 2008 12:51 PM V1-PT READY TO RAFA T TOBACCO USE [facility] Mar 14, 2007 01:11 PM V1-PT DECLINES REF TO TOBACCO CESS [facility] Mar 14, 2007 01:11 PM V1-PT READY TO RAFA T TOBACCO USE [facility] Jun 19, 2006 08:10 AM CURRENT SMOKER counselled [facility] Jun 13, 2005 08:55 AM QUIT TOBACCO USE I N PAST YEAR continue bupropion [facility] Nov 17, 2004 09:20 AM CURRENT SMOKER 1 pack a day [facility] Jun 23, 2003 02:22 PM CURRENT SMOKER 1ppd x 30yrs [facility] Encounter Notes: All associated encounter notes This section contains the clinical notes associated to the Encounter. Date/Time Encounter Note(s) Provider Source Feb 07, 2024 01:30 PM PHYSICIAN NOTE: LOCAL TITLE: NOTE STANDARD TITLE: PHYSICIAN NOTE DATE OF NOTE: FEB 07, 2024@13:30 ENTRY DATE: FEB 07, 2024@08:15:13 AUTHOR: Dell MASON COSIGNER: URGENCY: STATUS: COMPLETED NOTE Has ADDENDA Pt is 78 y/o M current smoker with PMH of obesity, HTN, HL, prediabetes, Skin cancer/melanoma, [place] lymphoma s/p small bowel resection - 08/2020- PCP is Dr Zachery Rios in [place] - q3-4m Last visit 04/2023 Other providers: -eye ks -podiatry [place] -dermatology - [place] [facility] - q3m -hem/[place] [facility] [place]GI Dr. 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 --Cohabitation: , lives alone, has GF of 30y --Children: 2 adult children --Diet: red meat 1-2/week, salad daily, 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 carbs/sugar/bread --Exercise:sedentary , some kamari work [...] current smoker -Patient undergoing evaluation by known [place] PCP, recently had echo, plan to get [...] 55% (12/2020) ECHO 01/2024 - with non [place] PCP report pending Cure rate with chemo [...] with oncology c/w annual screening with non [place] provider #LUTS: U/A negative,per pt PSA cheked by non [place] PCP pt self dc/d tamsulosin, LUTS not bothersome at this time #constipation: increase fiber intake, walking and hydration -start senna/docusate -start psyllium daily -miralax prn Healthcare maintenance: --Lipids: LDL 90 (11/2023) --Diabetes: A1c 5.4 (04/2023) --Colon CA (50-75): colonoscopy l [facility]- 2006 diverticulosis 07/2020 Dr Yassine Mendoza colonoscopy with polypectomy (5mm R colon- removed TA) poor prep --> repeat colonoscopy in 6-12m colonoscopy 01/2024 [facility] -->2 day prep did not work --> pt has f/u with GI Dr Metzger, in 04/2024 --> using private health insurance --Lung CA: pt aware if he has surveillance CT C/A/P with oncology no need to have CT chest at the [place] 08/2022 LDCT with oncology - no lung [...] oncology note, last pcp note, colonoscopy Dr Metzger [facility]. thanks Medication Reconciliation: Outpatient: Has the patient been taking medications as documented in the EMLR? YES: The patient has been taking medications as documented in the EMLR. Essential Medication List for Review used to complete this medication reconciliation. INCLUDED IN THIS LIST: Alphabetical list of active outpatient prescriptions dispensed from this [place] (local) and dispensed from another [place] or [place] facility (remote) as well as [...] STATUS: COMPLETED REcords requested from the following: [facility] [place]hemotology [facility] [place] [facility] Dr. Metzger PCP Dr. Rios fax: [phone] /haritha/ ALLISON HERNANDEZ Signed: 02/08/2024 08:40 STEFAN MASON [facility] Jan 31, 2024 10:14 AM ADMINISTRATIVE NOT E: LOCAL TITLE: ADMINISTRATIVE NOTE STANDARD TITLE: ADMINISTRATIVE NOTE DATE OF NOTE: JAN 31, 2024@10:14 ENTRY DATE: JAN 31, 2024@10:14:59 AUTHOR: ALLISON SINGLETARY EXP COSIGNER: URGENCY: STATUS: COMPLETED [facility] [address] [place] [id number] [phone] * ADRIANA JOSÉ [address] [place] [id number] Date: JAN 31, 2024 re: This is a reminder of your upcoming PCP appt with NATALIE MASON. Appointment Date: Jan@13:30 Appointment Type: In-person visit Fasting blood work NON fasting blood work CONFIRMED WITH THE Sincerely, Office Staff for: NATALIE MASON Primary Care Provider [facility] [address] [address] T [phone] F [phone] Upcoming Appointments: 02/07/2024 13:30 CWM/SO/PACT 5 05/29/2024 14:00 NHM/OPT/VISUAL IMAGING 12/05/2024 11:00 NHM/OPTOMETRY/BORASKI APPOINTMENT ABBREVIATION RECINOS (SPOPC OR SO = [address]) (GOPC OR GO = [address]) (NHM or NO = [facility]) (VVC - Video Call) (Tel-X Telephone Visit) (TH - Telehealth) /haritha/ ALLISON HERNANDEZ Signed: 01/31/2024 10:15 ALLISON SINGLETARY [facility]
--- OUTSIDE RECORDS SUMMARY | 2024-03-12 09:36 | XMS_ITS ---
Author Name [place] Address [address] [place] [id number] Care Team Providers Care Web Site Developer Name Role Phone NATALIE MASON Primary Care [...] PART A Jul 02, 2011 PART A [id number] [phone] ADRIANA JOSÉ PATIENT MEDICARE (WNR) MEDICARE (M) PART B Jul 02, 2011 PART B [id number] ADRIANA JOSÉ PATIENT MEDICARE (WNR) MEDICARE (M) PART B Jul 02, 2011 PART B [id number] ADRIANA JOSÉ PATIENT MEDICARE (WNR) MEDICARE (M) PART A Jul 02, 2011 PART A [id number] ADRIANA JOSÉ PATIENT MEDICARE (WNR) MEDICARE (M) PART B Jul 02, 2011 PART B [id number] [phone] ADRIANA JOSÉ PATIENT MEDICARE (WNR) MEDICARE (M) PART A Jul 02, 2011 PART A [id number] ADRIANA JOSÉ PATIENT MEDICARE (WNR) MEDICARE (M) PART B Jul 02, 2011 PART B [id number] ADRIANA JOSÉ PATIENT MEDICARE (WNR) MEDICARE (M) PART A Jul 02, 2011 PART A [id number] [phone] ADRIANA JOSÉ PATIENT [place] [employer] SUPP[employer] [place] MEDIC ARE SUPPL EMENT Jul 02, 2011 CORE [id number] ADRIANA JOSÉ PATIENT [place] [employer] SUPPLEMEN [place] MEDIC ARE PREFE RRED Apr 02, 2015 CORE [id number] ADRIANA JOSÉ PATIENT [place] [employer] SUPP[employer]MEN [place] MEDIC ARE SUPPL EMENT Jul 02, 2011 CORE [id number] ADRIANA JOSÉ PATIENT Selected Encounter This section includes the information on record at [place] for the Encounter. Date/Time Encounter Type Encounter Description Reason Pro vider Source Jan 03, 2024 01:26 PM Outpatient Encounter ADMIN PAT ACTIVTIES (MASNONCT) I[facility] Encounter Template Text not used by [place] Plan of Treatment: Future Appointments (+ 6 months) and Future Tests (+/- 45 days) The Plan of Treatment section includes future care activities for the patient from all [place] treatmentfacilities. This section includes future appointments and future orders which are active, pending or scheduled. Future Appointments This section includes appointments that were scheduled to occur 6 months from the date of the Encounter, up to a maximum of 20 appointments. The data comes from all [place] treatment facilities. Appointment Date/Time Appointment Type Appointme nt Facility Name Jan 16, 2024 01:30 PM AMBULATORY - MEDICINE [place] [facility] [place] [facility] Feb 07, 2024 01:30 PM AMBULATORY - MEDICINE [facility] May 29, 2024 02:00 PM AMBULATORY - MEDICINE [facility] Active, Pending, and Scheduled Orders This section includes a listing of several types of active, pending, and scheduled orders, including clinic medications orders, diagnostic test orders, procedure orders and consult orders; where the start date of the order is 45 days before the date of the Encounter or 45 days after the date of theEncounter. The data comes from all [place] treatment facilities. Test Date/Time Test Type Test Details Facility Name Nov 28, 2023 02:39 PM Consult Order COMMUNITY CARE-OPHTHALMOLOGY Cons Network Associate's Choice [facility] Jan 31, 2024 12:00 AM Laboratory - Chemistry Order BASIC METABOLIC PANEL (fasting) BLOOD (SST-SERUM) [facility] Jan 31, 2024 12:00 AM Laboratory - Chemistry Order LIPID PANEL FASTING BLOOD (SST-SERUM) [facility] Jan 31, 2024 12:00 AM Laboratory - Chemistry Order LIVER FUNCTION BLOOD (SST-SERUM) [facility] Jan 31, 2024 12:00 AM Laboratory - Chemistry Order CBC AND DIFF (AUTO) BLOOD (LAV-BLOOD) [facility] Jan 31, 2024 12:00 AM Laboratory - Chemistry Order HEMOGLOBIN A1C PANEL BLOOD (LAV-BLOOD) [facility] Jan 31, 2024 12:00 AM Laboratory - Chemistry Order TSH BLOOD (SST-SERUM) [facility] Social History: Smoking Status (Most current) and Tobacco Use (All prior to encounter date) This section includes the most current, and the historical, smoking and tobacco- related health factors from the [place] facility where the Encounter took place. Current Smoking Status This section includes the most current smoking, or tobacco-related health factor, from the [place] facility where the Encounter took place. Date/Time Current Smoking Status Comment Facil ity May 11, 2022 10:21 AM VA-TOBACCO USE WI 30 MIN OF WAKEUP [facility] Tobacco Use History This section includes a history of the smoking, or tobacco-related health factors, that were collected on or before the date of the Encounter. The data comes from the [place] facility where the Encounter took place. Date/Time Smoking Status/Tobacco Use Comment F acility May 11, 2022 10:21 AM VA-TOBACCO USE ADVICE [facility] May 11, 2022 10:21 AM VA-TOBACCO USE MINUTE CLERK NO [facility] May 11, 2022 10:21 AM VA-TOBACCO USE MED NO [facility] May 11, 2022 10:21 AM VA-TOBACCO USE [place] 30 MIN OF WAKEUP [facility] May 11, 2022 10:21 AM VA-TOBACCO USER EVERY DAY [facility] Encounter Notes: All associated encounter notes This section contains the clinical notes associated to the Encounter. Date/Time Encounter Note(s) Provider Source Jan 03, 2024 01:27 PM ADMINISTRATIVE NOTE: LOCAL TITLE: [facility]: SCHEDULING ADMINISTRATION STANDARD TITLE: ADMINISTRATIVE NOTE DATE OF NOTE: JAN 03, 2024@13:27:02 ENTRY DATE: JAN 03, 2024@13:27:02 AUTHOR: CHRISTIAN PETTIT COSIGNER: URGENCY: STATUS: COMPLETED Patient Demographics Patient Name: ADRIANA JOSÉ Patient Primary Phone: [phone] Patient Primary Address: [address] [place] [address] Patient : 1945 Patient Age: 78 Caller/Recipient Relation to Patient: Self Administrative Administrative Note Reason: Medication Renewal [place] Medications Refill/Renewal Request: requesting renewal of: Rx #[id number] - LISINOPRIL 5MG TAB to be mailed, demographics verified IMPORTANT: This note was created by [facility] Contact [facility] staff. Please do not alert the staff member by adding them as a signer for future communications. Alerts are not monitored by this user. /haritha/ CHRISTIAN PETTIT VISN 1 [facility] AMSA Signed: 01/03/2024 13:27 Receipt Acknowledged By: 01/04/2024 14:28 /es/ SKY ARCEO NP NURSE PRACTITIONER for NATALIE MASON 01/08/2024 10:27 /es/ JOZEF CAVANAUGH,CHELLY REGISTERED NURSE CHRISTIAN PETTIT [facility]
--- OUTSIDE RECORDS SUMMARY | 2024-03-12 09:36 | XMS_ITS ---
Author Name [facility] [place] Organization [facility] [place] Address [address] [place] [id number] Care Team Providers Care Rn Observation Name Role Phone NATALIE MASON Primary Care [...] PART A Jul 02, 2011 PART A [id number] [phone] ADRIANA JOSÉ PATIENT MEDICARE (WNR) MEDICARE (M) PART B Jul 02, 2011 PART B [id number] [id number] [phone] ADRIANA JOSÉ PATIENT MEDICARE (WNR) MEDICARE (M) PART A Jul 02, 2011 PART A [id number] ADRIANA JOSÉ PATIENT MEDICARE (WNR) MEDICARE (M) PART B Jul 02, 2011 PART B [id number] ADRIANA JOSÉ PATIENT MEDICARE (WNR) MEDICARE (M) PART A Jul 02, 2011 PART A [id number] [id number] [phone] ADRIANA JOSÉ PATIENT MEDICARE (WNR) MEDICARE (M) PART A Jul 02, 2011 PART A [id number] ADRIANA JOSÉ PATIENT MEDICARE (WNR) MEDICARE (M) PART B Jul 02, 2011 PART B [id number] ADRIANA JOSÉ PATIENT MEDICARE (WNR) MEDICARE (M) PART B Jul 02, 2011 PART B [id number] [phone] ADRIANA JOSÉ PATIENT [place] [employer] [facility] ARE SUPPL EMENT Jul 02, 2011 CORE [id number] [phone] ADRIANA JOSÉ PATIENT [place] [employer] [place] MEDIC ARE PREFE RRED Apr 02, 2015 CORE [id number] [phone] ADRIANA JOSÉ PATIENT [place] [employer] [facility] MED[employer] ARE SUPPL EMENT Jul 02, 2011 CORE [id number] ADRIANA JOSÉ PATIENT Selected Encounter This section includes the information on record at [place] for the Encounter. Date/Time Encounter Type Encounter Description Reason Pro vider Source Feb 07, 2024 01:30 PM Outpatient Encounter PRIMARY CARE/MEDICINE IHE Encounter Template Text not used by [place] Plan of Treatment: Future Appointments (+ 6 months) and Future Tests (+/- 45 days) The Plan of Treatment section includes future care activities for the patient from all [place] treatmentfacilities. This section includes future appointments and future orders which are active, pending or scheduled. Future Appointments This section includes appointments that were scheduled to occur 6 months from the date of the Encounter, up to a maximum of 20 appointments. The data comes from all [place] treatment facilities. Appointment Date/Time Appointment Type Appointme nt Facility Name May 29, 2024 02:00 PM AMBULATORY - MEDICINE [place] [facility] Active, Pending, and Scheduled Orders This section includes a listing of several types of active, pending, and scheduled orders, including clinic medications orders, diagnostic test orders, procedure orders and consult orders; where the start date of the order is 45 days before the date of the Encounter or 45 days after the date of theEncounter. The data comes from all [place] treatment facilities. Test Date/Time Test Type Test Details Facility Name Jan 31, 2024 12:00 AM Laboratory - Chemi stry Order BASIC METABOLIC PANEL (fasting) BLOOD (SST-SERUM) [facility] Jan 31, 2024 12:00 AM Laboratory - Chemi stry Order LIVER FUNCTION BLOOD (SST-SERUM) [facility] Jan 31, 2024 12:00 AM Laboratory - Chemi stry Order LIPID PANEL FASTING BLOOD (SST-SERUM) [facility] Jan 31, 2024 12:00 AM Laboratory - Chemi stry Order CBC AND DIFF (AUTO) BLOOD (LAV-BLOOD) [facility] Jan 31, 2024 12:00 AM Laboratory - Chemi stry Order TSH BLOOD (SST-SERUM) [facility] Jan 31, 2024 12:00 AM Laboratory - Chemi stry Order HEMOGLOBIN A1C PANEL BLOOD (LAV-BLOOD) [facility] Social History: Smoking Status (Most current) and Tobacco Use (All prior to encounter date) This section includes the most current, and the historical, smoking and tobacco- related health factors from the [place] facility where the Encounter took place. Current Smoking Status This section includes the most current smoking, or tobacco-related health factor, from the [place] facility where the Encounter took place. Date/Time Current Smoking Status Comment Facil ity Feb 07, 2024 01:30 PM VA-TOBACCO USER SOME DAYS [place] [facility] [place] [facility] Tobacco Use History This section includes a history of the smoking, or tobacco-related health factors, that were collected on or before the date of the Encounter. The data comes from the [place] facility where the Encounter took place. 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 [facility] [place] [facility] Feb 07, 2024 01:30 PM VA-TOBACCO USE MED NO [facility] [place] [facility] Feb 07, 2024 01:30 PM VA-TOBACCO USER SOME DAYS [facility] [place] [facility] May 11, 2022 10:21 AM VA-TOBACCO USE 30 YEARS OR MORE [facility] [place] [facility] May 11, 2022 10:21 AM VA-TOBACCO USE ADVICE [facility] May 11, 2022 10:21 AM VA-TOBACCO USE CHIEF SCIENTIFIC OFFICER NO [facility] May 11, 2022 10:21 AM VA-TOBACCO USE MED NO [place] [facility] [place] [facility] May 11, 2022 10:21 AM VA-TOBACCO USE WI 30 MIN OF WAKEUP [facility] May 11, 2022 10:21 AM VA-TOBACCO USER EVERY DAY [facility] Encounter Notes: All associated encounter notes This section contains the clinical notes associated to the Encounter. Date/Time Encounter Note(s) Provider Source Feb 07, 2024 11:12 AM PREVENTIVE MEDICIN E NURSING NOTE: LOCAL TITLE: CLINICAL REMINDERS/NURSING STANDARD TITLE: PREVENTIVE MEDICINE NURSING NOTE DATE OF NOTE: FEB 07, 2024@11:12 ENTRY DATE: FEB 07, 2024@11:12:29 AUTHOR: KILO HALEY EXP COSIGNER: URGENCY: STATUS: COMPLETED CLINICAL REMINDERS/NURSING Has ADDENDA pre appt call Advance Directive Screen MH AD: Patient has an up-to-date Advance Directive at an outside, non-va facility and was asked to forward a copy to his/her clinician. Comment: info given Depression Screening: Perform PHQ-2 A PHQ-2 screen was performed. The score was 0 which is a negative screen for depression. Over the past two weeks, how often have you been bothered by the following problems? 1. Little interest or pleasure in doing things Not at all 2. Feeling down, depressed, or hopeless Not at all Suicide Screen: C-SSRS Screening [place] Suicide Severity Rating Scale (C-SSRS) screener 1. Over the past month, have you wished you were or wished you could go to sleep and not wake up? No 2. Over the past month, have you had any actual thoughts of killing yourself? No 3. Over the past month, have you been thinking about how you might do this? Response not required due to responses to other questions. 4. Over the past month, have you had these thoughts and had some intention of acting on them? Response not required due to responses to other questions. 5. Over the past month, have you started to work out or worked out the details of how to kill yourself? Response not required due to responses to other questions. 6. If yes, at any time in the past month did you intend to carry out this plan? Response not required due to responses to other questions. 7. In your lifetime, have you ever done anything, started to do anything, or prepared to do anything to end your life (for example, collected pills, obtained a gun, gave away valuables, went to the roof but didn't jump)? No 8. If YES, was this within the past 3 months? Response not required due to responses to other questions. Tobacco Use Screening: The patient uses tobacco but not every day. The patient does not use tobacco within 30 minutes of waking up. The patient has been smoking or using tobacco for thirty years or more. Patient was advised to quit smoking and/or using tobacco. Discussion with patient included: - Quitting smoking or tobacco use is one of the most important things you can do to protect and improve your health and [place] has the resources to support you. - Set a quit date when you are ready to quit. - Get support from your family and friends. - Review any past quit attempts- What helped? What didn't? - On the day you plan to quit, get rid of all cigarettes and tobacco products from your home, car or work. - Using a combination of behavioral counseling or other support strategies and FDA-approved cessation medications is the most effective way to ensure success in quitting. Patient was offered Behavioral Counseling and other support strategies to assist with quitting. Discussion with patient included: - Behavioral counseling or other support strategies greatly increases your chances of successfully quitting smoking or tobacco use by helping you develop a quit plan and providing support and other strategies to make behavioral changes to help you quit. - [place] has a number of behavioral counseling options to help you with quitting, including: * Provide information about the facility smoking or tobacco use treatment options or clinics * [place]'s national quitline, 2-533-TTIY-VET, with counseling available Sunday-Sunday The patient was not interested in receiving additional information about how to use the treatment options discussed. Patient was offered FDA-approved cessation medications. Discussion with patient included: - Medications for Nicotine replacement therapy such as the patch, gum or lozenge, and other medications such as varenicline or bupropion, can play an important role in the initial weeks and months after you quit smoking or tobacco use. - Medications help with cravings and withdrawal symptoms and they greatly increase your chances of successfully quitting. The patient was not interested in a prescription for tobacco cessation medications. Alcohol Use Screen (AUDIT-C): Alcohol Screen: SCREEN FOR ALCOHOL (AUDIT-C) An alcohol screening test (AUDIT-C) was negative (score=1). 1. How often did you have a drink containing alcohol in the past year? Consider a drink to be a 12 ounce can or bottle of regular beer, 8 ounces of malt liquor, a 5 ounce glass of table wine, or a 1.5 ounce shot of liquor (like scotch, gin, or vodka). Monthly or less 2. How many drinks containing alcohol did you have on a typical day when you were drinking in the past year? One or two drinks 3. How often did you have six or more drinks on one occasion in the past year? Never RHS Screen: RHS Screen Environmental Check Upon inquiry, the individual reports that the environment is safe to proceed. Informed Consent to Screen and Document The individual consents to proceed with screening. The individual consents to documentation of responses. PRIMARY SCREEN: In the past 12 months, how often did a current or former intimate partner (e.g., boyfriend, girlfriend, , , sexual partner): 1. Scream or curse at you Never 2. Insult or talk down to you Never 3. Threaten you with harm Never 4. Physically hurt you Never 5. Force or pressure you to have sexual contact against your will, or when you were unable to say no Never ?? The HITS tool (items 1-4 above) is [place] copyright protected by Shay Schulz MD, and the user has full rights to use it throughout the [place] system. PRIMARY SCREEN RESULT: The Primary Screen is NEGATIVE. The individual answered never to all forms of IPV above (i.e., answered never to all 5 items) The individual accepts education and/or resources: No EDUCATION: The individual indicated readiness to learn. Education offered during this session as noted above. The individual indicated understanding by asking relevant questions and making appropriate comments. No barriers to learning were observed or identified. Sexual Orientation: The patient thinks of their sexual orientation as: Straight or Heterosexual COVID VACCINE - WILL SCHEDULE WHEN READY. /shalini HALEY LPN LPN Signed: 02/07/2024 11:15 02/07/2024 ADDENDUM STATUS: COMPLETED Influenza Immunization: The patient has received the seasonal influenza vaccine for the current season at another location. Documented: INFLUENZA, UNSPECIFIED FORMULATION Historical Date Administered: Jan 18, 2024 Information Source: SOURCE UNSPECIFIED /shalini HALEY LPN LPN Signed: 02/07/2024 13:46 KILO HALEY
--- OUTSIDE RECORDS SUMMARY | 2024-03-12 09:37 | XMS_ITS ---
Author Organization [facility] Address [address] [place] [id number] Care Team Providers Care Plant Maintenance Mechanic Name Role Phone Gabriel MONTGOMERY, Zachery Primary Care Provider Rian Larsen Jr Unavailable [phone] Kathy Silverio M.D Unavailable Unavailable ALLERGIES Allergen (clinical drug ingredient) Drug/Non Drug Allergy documented on EMR Reaction Allergy Type Onset Date Status naproxen Naprosyn Unknown Drug Allergy Active REASON FOR VISIT Patient presents today for a COLON SCREENING MEDICATIONS Medication SIG (Take, Route, Frequency, Duration) Notes Start Date End Date Status Aspirin 81 Active Rosuvastatin Calcium 40 MG 1 tablet Oral ly Once a day for 30 day(s) Active Multivitamin Active Lisinopril 5 MG Orally Acti ve buPROPion HCl 150 mg Active SOCIAL HISTORY Tobacco Use: Social History Observation Description Date Details (start date - stop date) Current Smoker NA - NA Sex Assigned At : Social History Observation Description Sex Assigned At Unknown Tobacco Use/Smoking Question Answer Notes Patient is a current smoker How often do you smoke cigarettes? every day How many cigarettes a day do you smoke? 5 or les s How soon after you wake up do you smoke your fir st cigarette? within 5 minutes Are you interested in quitting? Not ready to robin t Alcohol Screen Question Answer Notes Did you have a drink containing alcohol in the p ast year? No Points 0 Interpretation Negative PROBLEMS Problem Type ICD Code Onset Dates Problem Status W/U Status Risk SNOMED Code Notes Problem Polyp of colon, unspecified part of colon, unspecified type (K63.5) Active confirmed [id number] VITAL SIGNS BMI 31.19 kg/m2 08/23/2023 Blood pressure systolic 000 mm Hg 08/23/19 Blood pressure diastolic 00 mm Hg 024 Height 69 in 08/23/2023 Temperature 97.8 degrees Fahrenheit 08/23/19 Weight 211 lb 4 oz lbs 08/23/2023 Encounters Encounter Location Date Provider Diagnosis [facility] [address] [place] [address] 08/23/2023 Rian Metzger Jr Polyp of colon, unspecified part of colon, unspecified type K63.5 ASSESSMENTS Encounter Date Diagnosis Assessment Notes Treatment Notes Treatment Clinical Notes 08/23/2023 Polyp of colon, unspecified part of colon, unspecified type (ICD-10 - K63.5) Colonoscopy material was printed PLAN OF TREATMENT Treatment Notes Assessment Notes Polyp of colon, unspecified part of colon, unspecified type Colonoscopy material was printed Future Test Test Name Order Date COLONOSCOPY 08/23/2023 Next Appt Details Follow Up: 1 Year, Reason: Progress Notes * Examination Category Sub-Category Detail Notes General Examination GENERAL APPEARANCE: in no ac jovany distress HEAD: normocephalic EYES: sclera non-icteric NECK/THYROID: no lymphadenopathy HEART: S1, S2 normal, no mu rmurs CHEST: normal shape and exp ansion LUNGS: clear to auscultatio n bilaterally ABDOMEN: soft, nontender, non distended, bowel sounds present, no organomegaly SKIN: anicteric EXTREMITIES: no clubbing, cyanosi s, or edema PSYCH: cognitive function i ntact ORAL CAVITY: mucosa moist
--- OUTSIDE RECORDS SUMMARY | 2024-03-12 09:37 | XMS_ITS ---
Author Organization [facility] Address [address] [place] [address] Care Team Providers Care Outpatient Program Coordinator Name Role Phone Gabriel MONTGOMERY, Zachery Primary Care Provider Tootie Metzger Jr, Rian Unavailable Kathy Silverio M.D Unavailable Unavailable REASON FOR VISIT please schedule f/u with Dr. Metzger in May Encounters Encounter Location Date Provider Diagnosis [facility] [address] [place] [id number] 12/11/2023 Rian Metzger Jr PLAN OF TREATMENT No Information
--- OUTSIDE RECORDS SUMMARY | 2024-03-12 09:37 | XMS_ITS | Encounter Summary ---
Author Name [facility] [place] [facility] [place] [place] Address [address] [place] [address] Care Team Providers Care Research Administrator Name Role Phone NATALIE MASON Primary [...] PART A Jul 02, 2011 PART A [id number] ADRIANA JOSÉ PATIENT MEDICARE (WNR) MEDICARE (M) PART B Jul 02, 2011 PART B [id number] [phone] ADRIANA JOSÉ PATIENT MEDICARE (WNR) MEDICARE (M) PART A Jul 02, 2011 PART A [id number] ADRIANA JOSÉ PATIENT MEDICARE (WNR) MEDICARE (M) PART B Jul 02, 2011 PART B [id number] ADRIANA JOSÉ PATIENT MEDICARE (WNR) MEDICARE (M) PART A Jul 02, 2011 PART A [id number] [phone] ADRIANA JOSÉ PATIENT MEDICARE (WNR) MEDICARE (M) PART A Jul 02, 2011 PART A [id number] ADRIANA JOSÉ PATIENT MEDICARE (WNR) MEDICARE (M) PART B Jul 02, 2011 PART B [id number] ADRIANA JOSÉ PATIENT MEDICARE (WNR) MEDICARE (M) PART B Jul 02, 2011 PART B [id number] ADRIANA JOSÉ PATIENT [place] [employer] MED[employer] ARE SUPPL EMENT Jul 02, 2011 CORE [id number] ADRIANA JOSÉ PATIENT [place] [employer] [place] MEDIC ARE PREFE RRED Apr 02, 2015 CORE [id number] [phone] ADRIANA JOSÉ PATIENT [place] [employer] [place] MEDIC ARE SUPPL EMENT Jul 02, 2011 CORE [id number] ADRIANA JOSÉ PATIENT Selected Encounter This section includes the information on record at [place] for the Encounter. Date/Time Encounter Type Encounter Description Reason Pro vider Source Jan 18, 2024 12:00 AM Outpatient Encounter EVENT (HISTORICAL) IHE Encounter Template Text not used by [place] Plan of Treatment: Future Appointments (+ 6 months) and Future Tests (+/- 45 days) The Plan of Treatment section includes future care activities for the patient from all [place] treatmentfacilities. This section includes future appointments and future orders which are active, pending or scheduled. Future Appointments This section includes appointments that were scheduled to occur 6 months from the date of the Encounter, up to a maximum of 20 appointments. The data comes from all [place] treatment facilities. Appointment Date/Time Appointment Type Appointme nt Facility Name Feb 07, 2024 01:30 PM AMBULATORY - MEDICINE [place] [place] May 29, 2024 02:00 PM AM[facility]ULATORY - MEDICINE [place] [facility] Active, Pending, and Scheduled Orders This section includes a listing of several types of active, pending, and scheduled orders, including clinic medications orders, diagnostic test orders, procedure orders and consult orders; where the start date of the order is 45 days before the date of the Encounter or 45 days after the date of theEncounter. The data comes from all [place] treatment facilities. Test Date/Time Test Type Test Details Facility Name Jan 31, 2024 12:00 AM Laboratory - Chemi stry Order BASIC METABOLIC PANEL (fasting) BLOOD (SST-SERUM) [facility] Jan 31, 2024 12:00 AM Laboratory - Chemi stry Order LIVER FUNCTION BLOOD (SST-SERUM) [facility] Jan 31, 2024 12:00 AM Laboratory - Chemi stry Order LIPID PANEL FASTING BLOOD (SST-SERUM) [facility] Jan 31, 2024 12:00 AM Laboratory - Chemi stry Order CBC AND DIFF (AUTO) BLOOD (LAV-BLOOD) [facility] Jan 31, 2024 12:00 AM Laboratory - Chemi stry Order TSH BLOOD (SST-SERUM) [facility] Jan 31, 2024 12:00 AM Laboratory - Chemi stry Order HEMOGLOBIN A1C PANEL BLOOD (LAV-BLOOD) [facility] Immunizations: All administered on the encounter date This section contains immunizations associated to the Encounter. Immunization Series Date Issued Reaction Comments INFLUENZA, UNSPECIFIED FORMULATION Jan 18, 2024 Social History: Smoking Status (Most current) and Tobacco Use (All prior to encounter date) This section includes the most current, and the historical, smoking and tobacco- related health factors from the [place] facility where the Encounter took place. Current Smoking Status This section includes the most current smoking, or tobacco-related health factor, from the [place] facility where the Encounter took place. Date/Time Current Smoking Status Comment Facil ity May 11, 2022 10:21 AM [facility]CO USER [facility] Tobacco Use History This section includes a history of the smoking, or tobacco-related health factors, that were collected on or before the date of the Encounter. The data comes from the [place] facility where the Encounter took place. Date/Time Smoking Status/Tobacco Use Comment F acility May 11, 2022 10:21 AM VA-TOBACCO USE ADVICE [place] [facility] [place] [facility] May 11, 2022 10:21 AM VA-TOBACCO USE REVERSE ENGINEER NO [place] [facility] [place] [facility] May 11, 2022 10:21 AM VA-TOBACCO USE MED NO [facility] May 11, 2022 10:21 AM MI-TOBACCO USE [place] 30 MIN OF WAKEUP [facility] May 11, 2022 10:21 AM MI-TOBACCO USER EVERY DAY [facility]
--- OUTSIDE RECORDS SUMMARY | 2024-03-12 09:37 | XMS_ITS | Patient Health Record ---
Author Organization [facility] Address [address] [place] [address] Care Team Providers Care Color Grinder Name Role Phone Gabriel MONTGOMERY, Zachery Primary Care Provider Rian Larsen Jr Unavailable Kathy Silverio M.D Unavailable Unavailable ALLERGIES Allergen (clinical drug ingredient) Drug/Non Drug Allergy documented on EMR Reaction Allergy Type Onset Date Status naproxen Naprosyn Unknown Drug Allergy Active REASON FOR REFERRAL No Information MEDICATIONS Medication SIG (Take, Route, Frequency, Duration) Notes Start Date End Date Status Aspirin 81 Active Rosuvastatin Calcium 40 MG 1 tablet Oral ly Once a day for 30 day(s) Active Lisinopril 5 MG Orally Acti ve buPROPion HCl 150 mg Active Multivitamin Active IMMUNIZATIONS Vaccine Route Administration Date Status Comme nts Influenza Unknown 01/14/2020 Administered Influenza Unknown 01/23/2023 Administered SOCIAL HISTORY Tobacco Use: Social History Observation [...] W/U Status Risk SNOMED Code Notes Problem Colon cancer screening (Z12.11) Active confirmed 957719869 Problem 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 (Z79.82) Active confirmed 322863019925199 Problem Polyp of colon, unspecified part of colon, unspecified type (K63.5) Active confirmed 88888064 VITAL SIGNS Temperature 97.8 degrees Fahrenheit 08/23/2023 Blood pressure diastolic 00 mm Hg 08/23/2023 Height 69 in 08/23/2023 Blood pressure systolic 000 mm Hg 08/23/2023 Weight 211 lb 4 oz lbs 08/23/2023 BMI 31.19 kg/m2 08/23/2023 Encounters Encounter Location Date Provider Diagnosis [facility] Out[facility] [address] [place], [place] [phone] 12/07/2023 Rian Metzger Jr Colon cancer screening Z12.11 [facility] [address] [place] [phone] 08/23/2023 Rian Metzger Jr Polyp of colon, unspecified part of colon, unspecified type K63.5 [facility] [address] [place] [phone] 12/11/2023 Rian Metzger Jr ASSESSMENTS Encounter Date Diagnosis Assessment Notes Treatment Notes Treatment Clinical Notes 12/07/2023 Colon cancer screening (ICD-10 - Z12.11) 08/23/2023 Polyp of colon, unspecified part of colon, unspecified type (ICD-10 - K63.5) Colonoscopy material was printed PLAN OF TREATMENT Future Test Test Name Order Date COLONOSCOPY 06/21/2020 COLONOSCOPY 08/23/2023 Insurance Providers Payer Name Payer Address Payer Phone Subscriber Number Group Number Insured Name Patient Relationship to Insured Coverage Start Date Coverage End Date MEDICARE OF [place] [address] [place] [id number] ADRIANA JOSÉ Self - patient is the insured [employer] PREFERRED [address] [place] [address] [phone] [id number] ADRIANA JOSÉ Self - patient is the insured MEDICAL (GENERAL) HISTORY Medical History History ICD Code hypertension hyperlipidemia basal cell carcinoma - face depression back pain spondylolysis prediabetes hematuria leg claudication (denies sx) 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
--- OUTSIDE RECORDS SUMMARY | 2024-03-12 09:37 | XMS_ITS ---
Author Organization [facility] Address [address] [place] [address] Care Team Providers Care Corporate Accounting Manager Name Role Phone Dane Rios MDneth Primary Care Provider Rian Larsen Jr Unavailable Kathy Silverio M.D Unavailable Unavailable REASON FOR VISIT hx polyps Encounters Encounter Location Date Provider Diagnosis [facility] Outpatient [address] [place] [phone] 12/07/2023 Rian Metzger Jr Colon cancer screening Z12.11 ASSESSMENTS Encounter Date Diagnosis Assessment Notes Treatment Notes Treatment Clinical Notes 12/07/2023 Colon cancer screening (ICD-10 - Z12.11) PLAN OF TREATMENT No Information
== END 2024-03-07 14:00 | disposition home or self-care (01) ==
PROVIDERS: PCP Internal Medicine; Visit Provider Internal Medicine
DX: Z01.818 Encounter for other preprocedural examination (principal); I77.810 Thoracic aortic ectasia; I82.C11 Acute embolism and thrombosis of right internal jugular vein; C43.9 Malignant melanoma of skin, unspecified; C83.398 Diffuse large B-cell lymphoma of other extranodal and solid organ sites; H25.9 Unspecified age-related cataract; I10 Essential (primary) hypertension; E78.00 Pure hypercholesterolemia, unspecified; R73.01 Impaired fasting glucose; R06.09 Other forms of dyspnea; F41.9 Anxiety disorder, unspecified; F17.200 Nicotine dependence, unspecified, uncomplicated

== ENCOUNTER → 2024-03-07 13:18 | Outpatient (BNVA) | payer MEDICARE, SELFPAY | PROVIDERS: PCP Internal Medicine; Visit Provider Internal Medicine | DX: Z01.818 Encounter for other preprocedural examination (principal); H25.9 Unspecified age-related cataract; I10 Essential (primary) hypertension; E78.00 Pure hypercholesterolemia, unspecified; R73.01 Impaired fasting glucose; R06.09 Other forms of dyspnea; I77.810 Thoracic aortic ectasia; E66.9 Obesity, unspecified; F41.9 Anxiety disorder, unspecified; C43.9 Malignant melanoma of skin, unspecified; I82.C11 Acute embolism and thrombosis of right internal jugular vein; F17.200 Nicotine dependence, unspecified, uncomplicated; Z71.6 Tobacco abuse counseling | CPT/HCPCS: 96127; 99212 ==

== ENCOUNTER 2024-07-09 08:04 | Outpatient (REF) | payer MEDICARE, SELFPAY ==
--- OUTSIDE RECORDS SUMMARY | 2024-07-09 08:09 | XMS_ITS ---
Author Name [facility] [place] [facility] [place] Organization [facility] [place] Address [address] [place] [id number] Care Team Providers Care Vinyl Flooring Installer Name Role Phone NATALIE MASON Primary Care [...] PART A Jul 02, 2011 PART A [id number] ADRIANA JOSÉ PATIENT MEDICARE (WNR) MEDICARE (M) PART B Jul 02, 2011 PART B [id number] ADRIANA JOSÉ PATIENT MEDICARE (WNR) MEDICARE (M) PART A Jul 02, 2011 PART A [id number] [id number] [phone] ADRIANA JOSÉ PATIENT MEDICARE (WNR) MEDICARE (M) PART B Jul 02, 2011 PART B [id number] [id number] ADRIANA JOSÉ PATIENT MEDICARE (WNR) MEDICARE (M) PART A Jul 02, 2011 PART A [id number] [id number] ADRIANA JOSÉ PATIENT MEDICARE (WNR) MEDICARE (M) PART B Jul 02, 2011 PART B [id number] [id number] ADRIANA JOSÉ PATIENT MEDICARE (WNR) MEDICARE (M) PART A Jul 02, 2011 PART A [id number] [id number] ADRIANA JOSÉ PATIENT MEDICARE (WNR) MEDICARE (M) PART B Jul 02, 2011 PART B [id number] ADRIANA JOSÉ PATIENT [place] [employer] MEDIC ARE SUPPL EMENT Jul 02, 2011 CORE [id number] [phone] ADRIANA JOSÉ PATIENT [place] [employer] SUPP[employer] [place] MEDIC ARE PREFE RRED Apr 02, 2015 CORE [id number] ADRIANA JOSÉ PATIENT [place] [employer] MEDIC ARE SUPPL EMENT Jul 02, 2011 CORE [id number] ADRIANA JOSÉ PATIENT Selected Encounter This section includes the information on record at [place] for the Encounter. Date/Time Encounter Type Encounter Description Reason Provider Source Apr 22, 2024 09:00 AM INTRM OPH EXAM EST PATIENT OPTOMETRY ICD-10-CM H40.013 Open angle with borderline findings, low risk, bilateral ELIF BAKER David Encounter Template Text not used by [place] Assessments - Encounter Diagnoses This section includes the primary and secondary diagnoses documented for the Encounter. Date/Time Primary/Secondary Diagnosis Diagnosis Name Provider Source Apr 22, 2024 10:17 AM PRIMARY Open angle with borderline findings, low risk, bilateral ELIF BAKER [facility] [place] [facility] Apr 22, 2024 10:17 AM SECONDARY Presence of intraocular lens ELIF BAKER [facility] [place] [facility] Apr 22, 2024 10:17 AM SECONDARY Retinal detachment with giant retinal tear, left eye ELIF BAKER [facility] Plan of Treatment: Future Appointments (+ 6 months) and Future Tests (+/- 45 days) The Plan of Treatment section includes future care activities for the patient from all [place] [facility]. This section includes future appointments and future orders which are active, pending or scheduled. Future Appointments This section includes appointments that were scheduled to occur 6 months from the date of the Encounter, up to a maximum of 20 appointments. The data comes from all [place] treatment facilities. Appointment Date/Time Appointment Type Appointme nt Facility Name May 26, 2024 03:30 PM AMBULATORY - MEDICINE [place] [facility] [place] [facility] May 29, 2024 02:00 PM AMBULATORY - MEDICINE [facility] [place] [facility] Jul 07, 2024 03:30 PM AMBULATORY - MEDICINE [place] [facility] [place] [facility] Oct 09, 2024 01:00 PM AMBULATORY - MEDICINE [facility] Social History: Smoking Status (Most current) and Tobacco Use (All prior to encounter date) This section includes the most current, and the historical, smoking and tobacco- related health factors from the [place] facility where the Encounter took place. Current Smoking Status This section includes the most current smoking, or tobacco-related health factor, from the [place] facility where the Encounter took place. Date/Time Current Smoking Status Comment Facil ity Feb 07, 2024 01:30 PM VA-TOBACCO USER SOME DAYS [place] [facility] [place] [facility] Tobacco Use History This section includes a history of the smoking, or tobacco-related health factors, that were collected on or before the date of the Encounter. The data comes from the [place] facility where the Encounter took place. Date/Time Smoking Status/Tobacco Use Comment F acility Feb 07, 2024 01:30 PM VA-TOBACCO USE 30 YEARS OR MORE [facility] [place] [facility] Feb 07, 2024 01:30 PM VA-TOBACCO USE ADVICE [facility] [place] [facility] Feb 07, 2024 01:30 PM VA-TOBACCO USE PROPERTY UTILIZATION MANAGER NO [facility] [place] [facility] Feb 07, 2024 01:30 PM VA-TOBACCO USE MED NO [facility] [place] [facility] Feb 07, 2024 01:30 PM VA-TOBACCO USER SOME DAYS [facility] [place] [facility] May 11, 2022 10:21 AM VA-TOBACCO USE 30 YEARS OR MORE [facility] [place] [facility] May 11, 2022 10:21 AM VA-TOBACCO USE ADVICE [facility] [place] [facility] May 11, 2022 10:21 AM VA-TOBACCO USE PROPERTY UTILIZATION MANAGER NO [facility] [place] [facility] May 11, 2022 10:21 AM VA-TOBACCO USE MED NO [facility] [place] [facility] May 11, 2022 10:21 AM VA-TOBACCO USE WI 30 MIN OF WAKEUP [facility] [place] [facility] May 11, 2022 10:21 AM VA-TOBACCO USER EVERY DAY [facility] [place] [facility] Encounter Notes: All associated encounter notes This section contains the clinical notes associated to the Encounter. 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 Otherwise no other acute ocular disease was seen at today's exam. Pressure spiked OS after cataract surgery OD and patient was on steroid drops. He was placed on Simbrinza OS by surgeons office. He is off all other postop medications. Pressure was down OD today. Simbrinza was discontinued today. The patient will return in 1 month for pressure check and repeat threshold anderson. /haritha/ ELIF BAKER OD STAFF AIR CONDITIONING INSTALLER SUPERVISOR Signed: 04/22/2024 10:17 ELIF BAKER [facility] [place] [facility] Apr 22, 2024 07:17 AM OPTOMETRY NOTE: LOCAL TITLE: OPTOMETRY NOTE STANDARD TITLE: OPTOMETRY NOTE DATE OF NOTE: APR 22, 2024@07:17 ENTRY DATE: APR 22, 2024@07:18:08 AUTHOR: ELY LATHAM EXP COSIGNER: ELIF BAKER URGENCY: STATUS: COMPLETED Active problems - Computerized Problem List is the source for the followin. Body mass index 25-29 - overweight 2. Benign Prostatic Hypertrophy without Outflow Obstruction (SCT 878236650) 3. History of adenomatous polyp of colon 4. Acute deep venous thrombosis of internal jugular vein 5. Non-Hodgkin lymphoma 6. H/O Malignant melanoma 7. Squamous cell carcinoma of skin 8. Benign essential hypertension (SNOMED CT 6483653) 9. Impaired fasting glucose (SNOMED CT 677907029) 10. Drug Hypersensitivity 11. Osteoarthrosis, unspecified whether generalized or localized, involving unsp 12. Rotator cuff (capsule) sprain or strain 13. Basal cell carcinoma of face (SNOMED CT 870524830) 14. Unspecified internal derangement of knee 15. family history of melanoma 16. Light tobacco smoker (SNOMED CT 046112242853260) 17. HEMATURIA 18. Spondylosis 19. Hyperlipidemia (SNOMED CT 56664285) 20. DEPRESSIVE DISORDER 21. Coronary arteriosclerosis Active Outpatient Medications (including Supplies): Active Outpatient Medications Status = 1) BRIMONIDINE 0.2%/BRINZOLAMID 1% OPH SUSP INSTILL 1 DROP INTO ACTIVE THE LEFT EYE THREE TIMES A DAY 2) BUPROPION HCL 150MG 12HR SA TAB TAKE ONE TABLET BY MOUTH ACTIVE ONCE DAILY 3) DOCUSATE NA 50MG/SENNOSIDES 8.6MG TAB TAKE 1 TABLET BY MOUTH ACTIVE ONCE DAILY Indication: FOR CONSTIPATION 4) KETOROLAC TROMETHAMINE 0.5% OPH SOLN INSTILL 1 DROP INTO THE ACTIVE RIGHT EYE THREE TIMES A DAY FOR 3 WEEKS FOLLOWING CATARACT SURGERY 5) LISINOPRIL 5MG TAB TAKE ONE TABLET BY MOUTH ONCE DAILY TO ACTIVE CONTROL BLOOD PRESSURE 6) MULTIVIT/OPHTH AREDS2/LUTE/ZEAX CAP/TAB TAKE 1 CAPSULE BY ACTIVE MOUTH TWICE DAILY IN THE MORNING AND EVENING, WITH FOOD Indication: FOR VITAMIN SUPPLEMENTATION 7) PREDNISOLONE ACETATE 1% OPH SUSP INSTILL 1 DROP INTO THE ACTIVE RIGHT EYE FOUR TIMES A DAY FOR 3 WEEKS FOLLOWING SURGERY. SHAKE WELL. 8) ROSUVASTATIN CA 40MG TAB TAKE ONE TABLET BY MOUTH ONCE DAILY ACTIVE (S) FOR CHOLESTEROL REPLACES ATORVASTATIN Indication: FOR HIGH CHOLESTEROL Active Non-VA Medications Status = 1) Non-VA ASPIRIN 81MG EC TAB 81MG BY MOUTH ONCE DAILY ACTIVE Indication: FOR BLOOD CLOT PREVENTION FOLLOWING PCI 2) Non-VA MULTIVITAMIN/MINERALS CAP/TAB 1 TABLET BY MOUTH ACTIVE 10 Total Medications Allergies: Patient has answered NKA All medications including those prescribed by outside VA's, community providers, and all OTC meds were reviewed and reconciled with patient to the best of their abilities. This 78 year old MALE is seen today for glaucoma workup (RNFL OCT, HVF 24-2, IOP check KELLY: NOV 28 2023 Chief Complaint: pt here for glaucoma suspect testing as well as for a new prescription, had CE in OD 5-6 weeks ago. OS IOP spiked, pt reports hes been taking drops tid, (Brimonidine/brinzolomide combo drop) OHx: 1. Non-exudative ARMD, bilateral, early dry stage 2. PCIOL OU 3. Glaucoma suspect 4. h/o RD OS Ocular Medications: (-) Pain: (+) SUAREZ: related to computer use, see above (-) Diplopia: (-) Flashes: (-) Floaters: (-) Amaurosis Fugax/Tia's: (-) Eye Injury: (+) Eye Surgery: retinoplexy OS, CE/PCIOL OU. OD was done Apr [address] Womack (-) TBI FOHx: (+) Glaucoma: brother (+) ARMD: brother VITALS (most recent, as listed in the electronic record): B/P: 135/85 (02/07/2024 14:26) Pulse: 86 (02/07/2024 13:44) Temperature: 98.3 F [36.8 C] (02/07/2024 13:44) Weight: 213.8 lb [96.98 kg] (02/07/2024 13:44) Height: 70 in [177.8 cm] (05/01/2019 08:59) BMI: BMI: 30.7 PERTINENT LABS: HEMOGLOBIN A1C TREND Collection DT Spec HGBA1c 04/09/2023 11:43 BLOOD 5.4 06/03/2021 08:41 BLOOD 5.4 03/11/2014 08:56 BLOOD 6.1 H (+) Smoker/Length of Time/PPD: 3-4 cigarettes per day Current Rx with last BCVA: OD: -1.25 -1.25 x 085 20/20-1 OS: +0.50 -1.25 x 080 20/40 (20/25 with eccentric viewing) Add: +2.25 20/20-2 DVA ( X )sc ( )cc OD: 20/20-1 OS: 20/40 eccentric viewing Pupils: PERRL (-)APD EOMs: SAFE OU, (-)Pain/Diplopia CVF (facial, peripheral): FTFC OU Subjective Refraction: OD: +0.50-0.23e177 20/20 OS: +0.50 -1.25 x 080 20/40 Add: +2.50 20/20 All the above performed by student, reviewed by attending Anterior segment: Performed by student, repeated by attending Lids: dermatochalasis OU, verucca central JOMAR Conj: white and quiet OU Cornea: clear OU AC: 3x3 OU Iris: flat and clear OU with pinpoint TID 2:00 and 5:00 OS Lens: 3+NS with tr PSC and vacuoles OD, PCIOL OS Tonometry: Performed by student, reviewed by attending [ X ] GAT [ ] iCare [] Anna OD 14 mmHg OS 12 mmHg Time: 9:36am Previous IOP (NOV 28 2023) OD: 20mmHg OS: 22 mmHg Time: 2:08pm Previous Pachymetry: OD: 584um OS: 599um Fundus exam: Dilated: Non dilated: XXX Dilating Drops: 1GTT 1 % Tropicamide OU & 1GTT 2.5% Phenylephrine OU (Pt. ed. on side effects, dilation warning given [...] clear Vessels: OD: 2/3 OS: 2/3 Periph: No dilation today Assessment/Plan: 1.Low risk open angle glaucoma suspect OU secondary to moderate cupping OU -IOP is elevated with thicker than average CCT -Moderate cupping of large nerves appears healthy and stable on fundus exam -No pseudoexfoliation or pigment dispersion -(+)Fam Hx, brother -RNFL OCT shows question of progressive RNFL thinning OS as compared -HVF WAS NOT DONE TODAY, MEDICAL DIRECTOR OF HOSPICE HAD A FULL SCHEDULE, returning MAY 29 2024 for RNFL OCT and 24-2 HVF - PT STOPPED GLAUCOMA DROP TODAY, CHECK IOP AT May VISIT. - monitor 2. Early stage dry AMD OU -no fluid upon dilated fundus exam -Mac OCT reveals scattered drusen OU with inf temp retinal thinning OS likely secondary to h/o retinal detachment -educated pt on exam findings, emphasized importance of taking AREDs BID and not smoking -continue with AREDs BID po -monitor 3. Pseudophakia OU - PCIOL, C/C. new prescription given today -monitor at CEE 4. H/o Retinal Detachment OS -likely macula-off given acuity and previously measured retinal thinning -stable OCT findings to previous scans -monitor at CEE 5. Regular astigmatism and presbyopia OU -minimal change in refraction today with no improvement in visual acuity -no final Rx today, defer until after CE OD -monitor at CEE Return to Clinic 1 month for and IOP check, 6 months for CEE or earlier PRN Education: After discussion and answering all 's questions, [place] demonstrated and verbalized understanding of diagnosis and [...] this [facility] (local) and dispensed from another [place] or [facility] facility (remote) as well as [...] with a VA or non-VA provider. /haritha/ MAUREEN LATHAM OPTOMETRY STUDENT Signed: 04/22/2024 10:54 /haritha/ ELIF BAKER OD STAFF AIR CONDITIONING INSTALLER SUPERVISOR Cosigned: 04/22/2024 10:58 AMARILIS LATHAM [facility]
--- OUTSIDE RECORDS SUMMARY | 2024-07-09 08:09 | XMS_ITS | Encounter Summary ---
Author Name [facility] [place] Address [address] [place] [address] Care Team Providers Care Adjuster Arbitrator Name Role Phone NATALIE MASON Primary Care [...] PART A Jul 02, 2011 PART A [id number] ADRIANA JOSÉ PATIENT MEDICARE (WNR) MEDICARE (M) PART B Jul 02, 2011 PART B [id number] [phone] ADRIANA JOSÉ PATIENT MEDICARE (WNR) MEDICARE (M) PART A Jul 02, 2011 PART A [id number] ADRIANA JOSÉ PATIENT MEDICARE (WNR) MEDICARE (M) PART B Jul 02, 2011 PART B [id number] [phone] ADRIANA JOSÉ PATIENT MEDICARE (WNR) MEDICARE (M) PART A Jul 02, 2011 PART A [id number] ADRIANA JOSÉ PATIENT MEDICARE (WNR) MEDICARE (M) PART B Jul 02, 2011 PART B [id number] ADRIANA JOSÉ PATIENT MEDICARE (WNR) MEDICARE (M) PART A Jul 02, 2011 PART A [id number] ADRIANA JOSÉ PATIENT MEDICARE (WNR) MEDICARE (M) PART B Jul 02, 2011 PART B [id number] ADRIANA JOSÉ PATIENT [place] [employer] MEDIC ARE SUPPL EMENT Jul 02, 2011 CORE [id number] ADRIANA JOSÉ PATIENT [employer] [employer] [place] MEDIC ARE PREFE RRED Apr 02, 2015 CORE [id number] [phone] ADRIANA JOSÉ PATIENT [place] [employer] SU[employer] MEDIC ARE SUPPL EMENT Jul 02, 2011 CORE [id number] ADRIANA JOSÉ PATIENT Selected Encounter This section includes the information on record at [place] for the Encounter. Date/Time Encounter Type Encounter Description Reason Provider Source Nov 28, 2023 02:00 PM COMPRE OPH EXAM EST PT 1/> OPTOMETRY ICD-10-CM H40.013 Open angle with borderline findings, low risk, bilateral ELIF BAKER David Encounter Template Text not used by [place] Assessments - Encounter Diagnoses This section includes the primary and secondary diagnoses documented for the Encounter. Date/Time Primary/Secondary Diagnosis Diagnosis Name Provider Source Nov 28, 2023 02:44 PM PRIMARY Open angle with borderline findings, low risk, bilateral ELIF BAKER [place] [facility] [place] [facility] Nov 28, 2023 02:44 PM SECONDARY Age-related nuclear cataract, right eye ELIF BAKER [place] [facility] [place] [facility] Nov 28, 2023 02:44 PM SECONDARY Nexdtve age-related mclr degn, bilateral, early dry stage ELIF BAKER [place] [facility] [place] [facility] Plan of Treatment: Future Appointments (+ 6 months) and Future Tests (+/- 45 days) The Plan of Treatment section includes future care activities for the patient from all [place] [facility] This section includes future appointments and future orders which are active, pending or scheduled. Future Appointments This section includes appointments that were scheduled to occur 6 months from the date of the Encounter, up to a maximum of 20 appointments. The data comes from all [place] treatment facilities. Appointment Date/Time Appointment Type Appointme nt Facility Name Jan 16, 2024 01:30 PM AMBULATORY - MEDICINE [place] [facility] [place] [facility] Feb 07, 2024 01:30 PM AM[facility]ULATORY [facility]ICINE [facility] Apr 22, 2024 09:00 AM AMBULATORY - MEDICINE [place] [facility] [place] [facility] Apr 22, 2024 09:15 AM AMBULATORY - MEDICINE [place] [facility] [place] [facility] May 26, 2024 03:30 PM AMBULATORY - MEDICINE [place] [facility] [place] [facility] May 29, 2024 02:00 PM AMBULATORY - MEDICINE [place] [facility] [place] [facility] Social History: Smoking Status (Most current) and Tobacco Use (All prior to encounter date) This section includes the most current, and the historical, smoking and tobacco- related health factors from the [place] facility where the Encounter took place. Current Smoking Status This section includes the most current smoking, or tobacco-related health factor, from the [place] facility where the Encounter took place. Date/Time Current Smoking Status Comment Facil ity May 11, 2022 10:21 AM VA-TOBACCO USER EVERY DAY [place] [facility] Tobacco Use History This section includes a history of the smoking, or tobacco-related health factors, that were collected on or before the date of the Encounter. The data comes from the [place] facility where the Encounter took place. Date/Time Smoking Status/Tobacco Use Comment F acility May 11, 2022 10:21 AM VA-TOBACCO USE ADVICE [place] [facility] [place] [facility] May 11, 2022 10:21 AM VA-TOBACCO USE CASE MANAGEMENT ASSISTANT NO [facility] [place] [facility] May 11, 2022 10:21 AM VA-TOBACCO USE MED NO [facility] [place] [facility] May 11, 2022 10:21 AM VA-TOBACCO USE WI 30 MIN OF WAKEUP [facility] May 11, 2022 10:21 AM VA-TOBACCO USER EVERY DAY [facility] Encounter Notes: All associated encounter notes [...] exam. Ordered consult to [facility] for cataract extraction OD. The patient will return in 6 months to repeat glaucoma imaging especially for OS optic nerve fiber layer thinning. /haritha/ ELIF BAKER OD STAFF FLOOR SURFACER Signed: 11/28/2023 14:44 ELIF BAKER [facility] Nov 28, 2023 12:25 PM OPTOMETRY NOTE: LOCAL TITLE: OPTOMETRY NOTE STANDARD TITLE: OPTOMETRY NOTE DATE OF NOTE: NOV 28, 2023@12:25 ENTRY DATE: NOV 28, 2023@12:26:01 AUTHOR: ROBI PONCE EXP COSIGNER: ELIF BAKER URGENCY: STATUS: COMPLETED Active problems - Computerized Problem List is the source for the followin. Body mass index 25-29 - overweight 2. Benign Prostatic Hypertrophy without Outflow Obstruction (SCT 098460819) 3. History of adenomatous polyp of colon 4. Acute deep venous thrombosis of internal jugular vein 5. Non-Hodgkin lymphoma 6. H/O Malignant melanoma 7. Squamous cell carcinoma of skin 8. Benign essential hypertension (SNOMED CT 2134777) 9. Impaired fasting glucose (SNOMED CT 019530885) 10. Drug Hypersensitivity 11. Osteoarthrosis, unspecified whether generalized or localized, involving unsp 12. Rotator cuff (capsule) sprain or strain 13. Basal cell carcinoma of face (SNOMED CT 009710709) 14. Unspecified internal derangement of knee 15. family history of melanoma 16. Light tobacco smoker (SNOMED CT 130504218101759) 17. HEMATURIA 18. Spondylosis 19. Hyperlipidemia (SNOMED CT 13896615) 20. DEPRESSIVE DISORDER 21. Coronary arteriosclerosis Active [...] for CE consult at [facility] -pt opts to proceed with CE consult [...] to Clinic 6 months or earlier PRN Hope Education: After discussion and answering all 's [...] 11/28/2023 15:53 /haritha/ ELIF BAKER OD STAFF FLOOR SURFACER Cosigned: 11/28/2023 15:54 [facility]
--- OUTSIDE RECORDS SUMMARY | 2024-07-09 08:09 | XMS_ITS | Encounter Summary ---
Author Name [facility] [place] [facility] [place] [facility] [place] [facility] [place] Address [address] [place] [address] Care Team Providers Care Geomorphologist Name Role [...] PART A Jul 02, 2011 PART A [id number] ADRIANA JOSÉ PATIENT MEDICARE (WNR) MEDICARE (M) PART B Jul 02, 2011 PART B [id number] ADRIANA JOSÉ PATIENT MEDICARE (WNR) MEDICARE (M) PART A Jul 02, 2011 PART A [id number] ADRIANA JOSÉ PATIENT MEDICARE (WNR) MEDICARE (M) PART B Jul 02, 2011 PART B [id number] ADRIANA JOSÉ PATIENT MEDICARE (WNR) MEDICARE (M) PART A Jul 02, 2011 PART A [id number] ADRIANA JOSÉ PATIENT MEDICARE (WNR) MEDICARE (M) PART A Jul 02, 2011 PART A [id number] ADRIANA JOSÉ PATIENT MEDICARE (WNR) MEDICARE (M) PART B Jul 02, 2011 PART B [id number] [phone] ADRIANA JOSÉ PATIENT MEDICARE (WNR) MEDICARE (M) PART B Jul 02, 2011 PART B [id number] ADRIANA JOSÉ PATIENT [place] [employer] MEDIC ARE SUPPL EMENT Jul 02, 2011 CORE [id number] [phone] ADRIANA JOSÉ PATIENT [place] [employer] SUPPLEMEN [place] MEDIC ARE PREFE RRED Apr 02, 2015 CORE [id number] ADRIANA JOSÉ PATIENT [place] [employer] SUPPLEMEN [place] MEDIC ARE SUPPL EMENT Jul 02, 2011 [facility] [id number] [phone] ADRIANA JOSÉ PATIENT Selected Encounter This section includes the information on record at [place] for the Encounter. Date/Time Encounter Type Encounter Description Reason Provider Source Apr 22, 2024 09:15 AM CPTRZD OPH DX IMG PST SGM ON OPTOMETRY ICD-10-CM H40.013 Open angle with borderline findings, low risk, bilateral ELIF BAKER Encounter Template Text not used by [place] Assessments - Encounter Diagnoses This section includes the primary and secondary diagnoses documented for the Encounter. Date/Time Primary/Secondary Diagnosis Diagnosis Name Provider Source May 26, 2024 03:27 PM PRIMARY Open angle with borderline findings, low risk, bilateral ELIF BAKER [place] [facility] Plan of Treatment: Future Appointments (+ 6 months) and Future Tests (+/- 45 days) The Plan of Treatment section includes future care activities for the patient from all [place] treatmentfacilities. This section includes future appointments and future orders which are active, pending or scheduled. Future Appointments This section includes appointments that were scheduled to occur 6 months from the date of the Encounter, up to a maximum of 20 appointments. The data comes from all [place] treatment facilities. Appointment Date/Time Appointment Type Appointme nt Facility Name May 26, 2024 03:30 PM AMBULATORY [facility] MEDICINE [facility] [place] [facility] May 29, 2024 02:00 PM AMBULATORY - MEDICINE [facility] [place] [facility] Jul 07, 2024 03:30 PM AMBULATORY - MEDICINE [facility] [place] [facility] Oct 09, 2024 01:00 PM AMBULATORY - MEDICINE [facility] Social History: Smoking Status (Most current) and Tobacco Use (All prior to encounter date) This section includes the most current, and the historical, smoking and tobacco- related health factors from the [place] facility where the Encounter took place. Current Smoking Status This section includes the most current smoking, or tobacco-related health factor, from the [place] facility where the Encounter took place. Date/Time Current Smoking Status Comment Facil ity Feb 07, 2024 01:30 PM VA-TOBACCO USER SOME DAYS [facility] [place] [facility] Tobacco Use History This section includes a history of the smoking, or tobacco-related health factors, that were collected on or before the date of the Encounter. The data comes from the [place] facility where the Encounter took place. Date/Time Smoking Status/Tobacco Use Comment F acility Feb 07, 2024 01:30 PM VA-TOBACCO USE 30 YEARS OR MORE [facility] [place] [facility] Feb 07, 2024 01:30 PM VA-TOBACCO USE ADVICE [facility] [place] [facility] Feb 07, 2024 01:30 PM VA-TOBACCO USE VICE PRESIDENT LENDING NO [facility] [place] [facility] Feb 07, 2024 01:30 PM VA-TOBACCO USE MED NO [facility] [place] [facility] Feb 07, 2024 01:30 PM VA-TOBACCO USER SOME DAYS [facility] [place] [facility] May 11, 2022 10:21 AM VA-TOBACCO USE 30 YEARS OR MORE [facility] [place] [facility] May 11, 2022 10:21 AM VA-TOBACCO USE ADVICE [facility] [place] [facility] May 11, 2022 10:21 AM VA-TOBACCO USE VICE PRESIDENT LENDING NO [facility] [place] [facility] May 11, 2022 10:21 AM VA-TOBACCO USE MED NO [facility] [place] [facility] May 11, 2022 10:21 AM VA-TOBACCO USE WI 30 MIN OF WAKEUP [place] [facility] [place] [facility] May 11, 2022 10:21 AM VA-TOBACCO USER EVERY DAY [facility] Encounter Notes: All associated encounter notes This section contains the clinical notes associated to the Encounter. Date/Time Encounter Note(s) Provider Source Apr 22, 2024 09:49 AM OPTOMETRY CONSULT: LOCAL TITLE: CONSULT REPORT/OPTOMETRY OCT STANDARD TITLE: OPTOMETRY CONSULT DATE OF NOTE: APR 22, 2024@09:49 ENTRY DATE: APR 22, 2024@09:49:57 AUTHOR: ELY LATHAM COSIGNER: ELIF BAKER URGENCY: STATUS: COMPLETED RNFL OCT report: RNFL OCT reviewed for OD: average c/d 0.54, vertical c/d 0.46, disc area 2.25 mm^2. Average RNFL thickness 92 microns. No thinning noted all quadrants. OS: average c/d 0.68, vertical c/d 0.68, disc area 2.33 mm^2. Average RNFL thickness 76 microns. No thinning noted all quadrants. A/P: A: Stable from previous, no change in RNFL thinning OU, RTC MAY 29 2024 for HVF and repeat RNFL OCT, pt discontinued simbrinza from IOP spike,recheck IOP at MAY visit. Monitor, if IOP rises start simbrinza again. IOPs today OD: 14mmHg OS: 12mmHg /shalini LATHAM OPTOMETRY STUDENT Signed: 04/22/2024 10:55 /haritha/ ELIF BAKER OD STAFF FITTING ROOM OPERATOR Cosigned: 04/22/2024 10:59 ELY LATHAM Y [facility]
--- OUTSIDE RECORDS SUMMARY | 2024-07-09 08:10 | XMS_ITS | Patient Health Record ---
Author Organization [facility] Address [address] [place] [address] Care Team Providers Care Silverlight Developer Name Role Phone Gabriel MONTGOMERY, Zachery Primary Care Provider Rian Larsen Jr Unavailable [phone] Kathy Silverio M.D Unavailable Unavailable Allergies Allergen (clinical drug ingredient) Drug/Non Drug Allergy documented on EMR Reaction Allergy Type Onset Date Status naproxen Naprosyn Unknown Drug Allergy Active Reason For Referral No Information Medications Medication SIG (Take, Route, Frequency, Duration) Notes Start Date End Date Status Aspirin 81 Active Rosuvastatin Calcium 40 MG 1 tablet Oral ly Once a day for 30 day(s) Active Lisinopril 5 MG Orally Acti ve buPROPion HCl 150 mg Active Multivitamin Active Immunizations Vaccine Route Administration Date Status Comme nts Influenza Unknown 01/14/2020 Administered Influenza Unknown 01/23/2023 Administered Social History Tobacco Use: Social History Observation Description Date Details (start date - stop date) Current Smoker NA - NA Tobacco Use/Smoking Question Answer Notes Patient is [...] ast year? 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) use of aspirin (Z79.82) Active confirmed Problem 68227608 Polyp of colon, unspecified part of colon, unspecified type (K63.5) Active confirmed Vital Signs Temperature 97.8 degrees Fahrenheit 08/23/2023 Blood pressure diastolic 00 mm Hg 08/23/2023 Height 69 in 08/23/2023 Blood pressure systolic 000 mm Hg 08/23/2023 Weight 211 lb 4 oz lbs 08/23/2023 BMI 31.19 kg/m2 08/23/2023 Encounters Encounter Location Date Provider Diagnosis [facility] [address] [place] [phone] 12/07/2023 Rian Metzger Jr Colon cancer screening Z12.11 [facility] [address] [place] [phone] 08/23/2023 Rian Metzger Jr Polyp of colon, unspecified part of colon, unspecified type K63.5 [facility] [address] [place] [phone] 12/11/2023 Rian Metzger Jr Assessments Encounter Date Diagnosis (ICD Code) Assessment Notes Treatment Notes Treatment Clinical Notes Section Notes 12/07/2023 Colon cancer screening (ICD-10 - Z12.11) 08/23/2023 Polyp of colon, unspecified part of colon, unspecified type (ICD-10 - K63.5) Colonoscopy material was printed We discussed colonoscopy today. We discussed risks and benefits of the procedure today. He understands these and agrees to proceed. This will be scheduled at his convenience. He is advised stop aspirin one week before the procedure. Plan Of Treatment Future Test Test Name Order Date COLONOSCOPY 06/21/2020 COLONOSCOPY 08/23/2023 Insurance Providers Payer Name Payer Address Payer Phone Subscriber Number Group Number Insured Name Patient Relationship to Insured Coverage Start Date Coverage End Date MEDICARE [place] [address] [place] [address] [phone] [id number] ADRIANA JOSÉ Self - patient is the insured [place] [employer] [place] [address] [place] [id number] ADRIANA JOSÉ Self - patient is the insured Medical (General) History Medical History History ICD Code hypertension hyperlipidemia [...]
--- OUTSIDE RECORDS SUMMARY | 2024-07-09 08:10 | XMS_ITS ---
Author Organization [facility] Address [address] [place] [phone] Care Team Providers Care Child Psychologist Name Role Phone Gabriel MONTGOMERY, Zachery Primary Care Provider Tootie Metzger Jr, Rian Unavailable Kathy Silverio M.D Unavailable Unavailable REASON FOR VISIT colon polyp Encounters Encounter Location Date Provider Diagnosis [facility] [address] [place] [phone] 06/04/2024 Rian Metzger Jr Plan Of Treatment No Information Progress Notes * ADRIANA JOSÉ JDOB:1945 (78 yo M)Acc No.[id number]:06/04/2024 Progress Notes Patient:?ADRIANA JOSÉ Provider:?Rian Metzger MD :1945???Age:78 Y???Sex:Male Gabriel e:06/04/2024 Address:[address] [place], [place] [phone] Pcp:Zachery Rios MD Subjective: * Chief Complaints: * ???1. Colon polyp. * Medical History:? Objective: * Vitals:? Assessment: Plan: * Treatment: * * The named appointment provid er may or may not be the originator of this progress note, and it is not deemed complete until electronically signed by the appointment provider. Sign off status: Pending * Provider:?Rian Metzger MD Date:?0 06/04/2024 Generated for Salvador guajardo/Flori/eTransmitting on:?07/09/2024 08:09 AM EDT
--- OUTSIDE RECORDS SUMMARY | 2024-07-09 08:10 | XMS_ITS ---
Author Name [facility] [place] Organization [facility] [place] Address [address] [place] [address] Care Team Providers Care General Doc Name Role Phone NATALIE MASON Primary Care [...] PART A Jul 02, 2011 PART A [id number] ADRIANA JOSÉ PATIENT MEDICARE (WNR) MEDICARE (M) PART B Jul 02, 2011 PART B [id number] ADRIANA JOSÉ PATIENT MEDICARE (WNR) MEDICARE (M) PART A Jul 02, 2011 PART A [id number] [phone] ADRIANA JOSÉ PATIENT MEDICARE (WNR) MEDICARE (M) PART B Jul 02, 2011 PART B [id number] ADRIANA JOSÉ PATIENT MEDICARE (WNR) MEDICARE (M) PART A Jul 02, 2011 PART A [id number] ADRIANA JOSÉ PATIENT MEDICARE (WNR) MEDICARE (M) PART A Jul 02, 2011 PART A [id number] GC22 ADRIANA JOSÉ PATIENT MEDICARE (WNR) MEDICARE (M) PART B Jul 02, 2011 PART B [id number] ADRIANA JOSÉ PATIENT MEDICARE (WNR) MEDICARE (M) PART B Jul 02, 2011 PART B [id number] [phone] ADRIANA JOSÉ PATIENT [place] [employer] MEDIC ARE SUPPL EMENT Jul 02, 2011 CORE [id number] ADRIANA JOSÉ PATIENT [employer] [employer] SU[employer]MEN [place] MEDIC ARE PREFE RRED Apr 02, 2015 CORE [id number] [phone] ADRIANA JOSÉ PATIENT [employer] SU[employer] MEDIC ARE SUPPL EMENT Jul 02, 2011 CORE [id number] ADRIANA JOSÉ PATIENT Selected Encounter This section includes the information on record at [place] for the Encounter. Date/Time Encounter Type Encounter Description Reason Provider Source Jul 07, 2024 03:30 PM INTRM OPH EXAM EST PATIENT OPTOMETRY ICD-10-CM H40.013 Open angle with borderline findings, low risk, bilateral ELIF BAKER [facility] Encounter Template Text not used by [place] Assessments - Encounter Diagnoses This section includes the primary and secondary diagnoses documented for the Encounter. Date/Time Primary/Secondary Diagnosis Diagnosis Name Provider Source Jul 08, 2024 07:40 AM PRIMARY Open angle with borderline findings, low risk, bilateral ELIF BAKER [facility] [place] [facility] Jul 08, 2024 07:40 AM SECONDARY Presence of intraocular lens ELIF BAKER [facility] Plan of Treatment: Future Appointments (+ 6 months) and Future Tests (+/- 45 days) The Plan of Treatment section includes future care activities for the patient from all [place] treatmentfacilities. This section includes future appointments and future orders which are active, pending or scheduled. Future Appointments This section includes appointments that were scheduled to occur 6 months from the date of the Encounter, up to a maximum of 20 appointments. The data comes from all [place] treatment facilities. Appointment Date/Time Appointment Type Appointme nt Facility Name Oct 09, 2024 01:00 PM AMBULATORY - MEDICINE [facility] [place] Nov 25, 2024 11:00 AM AMBULATORY - MEDICINE [facility] [place] [facility] Jan 05, 2025 03:30 PM AMBULATORY - MEDICINE [facility] [place] [facility] Social History: Smoking Status (Most current) and Tobacco Use (All prior to encounter date) This section includes the most current, and the historical, smoking and tobacco- related health factors from the [place] facility where the Encounter took place. Current Smoking Status This section includes the most current smoking, or tobacco-related health factor, from the [place] facility where the Encounter took place. Date/Time Current Smoking Status Comment Facil ity Feb 07, 2024 01:30 PM VA-TOBACCO DOESNT USE WI 30 MIN WAKEUP [place] [facility] [place] [facility] Tobacco Use History This section includes a history of the smoking, or tobacco-related health factors, that were collected on or before the date of the Encounter. The data comes from the [place] facility where the Encounter took place. Date/Time Smoking Status/Tobacco Use Comment F acility Feb 07, 2024 01:30 PM VA-TOBACCO USE 30 YEARS OR MORE [facility] [place] [facility] Feb 07, 2024 01:30 PM VA-TOBACCO USE ADVICE [facility] [place] [facility] Feb 07, 2024 01:30 PM VA-TOBACCO USE OPERATOR LIGHTS NO [facility] [place] [facility] Feb 07, 2024 01:30 PM VA-TOBACCO USE MED NO [facility] [place] [facility] Feb 07, 2024 01:30 PM VA-TOBACCO USER SOME DAYS [facility] [place] [facility] May 11, 2022 10:21 AM VA-TOBACCO USE 30 YEARS OR MORE [facility] [place] [facility] May 11, 2022 10:21 AM VA-TOBACCO USE ADVICE [facility] [place] [facility] May 11, 2022 10:21 AM VA-TOBACCO USE OPERATOR LIGHTS NO [facility] [place] [facility] May 11, 2022 10:21 AM VA-TOBACCO USE MED NO [place] [facility] [place] [facility] May 11, 2022 10:21 AM VA-TOBACCO USE WI 30 MIN OF WAKEUP [place] [facility] [place] [facility] May 11, 2022 10:21 AM VA-TOBACCO USER EVERY DAY [facility] Encounter Notes: All associated encounter notes This section contains the clinical notes associated to the Encounter. 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 Body mass index 25-29 - overweight 2. Benign Prostatic Hypertrophy without Outflow Obstruction (SCT 909837380) 3. History of adenomatous polyp of colon 4. Acute deep venous thrombosis of internal jugular vein 5. Non-Hodgkin lymphoma 6. H/O Malignant melanoma 7. Squamous cell carcinoma of skin 8. Benign essential hypertension (SNOMED CT 2635587) 9. Impaired fasting glucose (SNOMED CT 792950031) 10. Drug Hypersensitivity 11. Osteoarthrosis, unspecified whether generalized or localized, involving unsp 12. Rotator cuff (capsule) sprain or strain 13. Basal cell carcinoma of face (SNOMED CT 980260442) 14. Unspecified internal derangement of knee 15. family history of melanoma 16. Light tobacco smoker (SNOMED CT 977781011677423) 17. HEMATURIA 18. Spondylosis 19. Hyperlipidemia (SNOMED CT 79428002) 20. DEPRESSIVE DISORDER 21. Coronary arteriosclerosis Active Outpatient Medications (including Supplies): Active Outpatient Medications Status 1) BUPROPION HCL 150MG 12HR SA TAB TAKE ONE TABLET BY MOUTH ACTIVE (S) ONCE DAILY 2) DOCUSATE NA 50MG/SENNOSIDES 8.6MG TAB TAKE 1 TABLET BY MOUTH ACTIVE ONCE DAILY Indication: FOR CONSTIPATION 3) KETOROLAC TROMETHAMINE 0.5% OPH SOLN INSTILL 1 DROP INTO THE ACTIVE RIGHT EYE THREE TIMES A DAY FOR 3 WEEKS FOLLOWING CATARACT SURGERY 4) LISINOPRIL 5MG TAB TAKE ONE TABLET BY MOUTH ONCE DAILY TO ACTIVE CONTROL BLOOD PRESSURE 5) MULTIVIT/OPHTH AREDS2/LUTE/ZEAX CAP/TAB TAKE 1 CAPSULE BY ACTIVE MOUTH TWICE DAILY IN THE MORNING AND EVENING, WITH FOOD Indication: FOR VITAMIN SUPPLEMENTATION 6) PREDNISOLONE ACETATE 1% OPH SUSP INSTILL 1 DROP INTO THE ACTIVE RIGHT EYE FOUR TIMES A DAY FOR 3 WEEKS FOLLOWING SURGERY. SHAKE WELL. 7) ROSUVASTATIN CA 40MG TAB TAKE ONE TABLET BY MOUTH ONCE DAILY ACTIVE FOR CHOLESTEROL REPLACES ATORVASTATIN Indication: FOR HIGH CHOLESTEROL Active Non-VA Medications Status 1) Non-VA ASPIRIN 81MG EC TAB 81MG BY MOUTH ONCE DAILY ACTIVE Indication: FOR BLOOD CLOT PREVENTION FOLLOWING PCI 2) Non-VA MULTIVITAMIN/MINERALS CAP/TAB 1 TABLET BY MOUTH ACTIVE 9 Total Medications Allergies: Patient has answered NKA All medications including those prescribed by outside VA's, community providers, and all OTC meds were reviewed and reconciled with patient to the best of their abilities. This 78 year old MALE is seen today for a follow up / IOP check on Simbrinza Tid OS since May 2024 Medical, eye, personal, and social history are all reviewed and is contributory or is not contributory to today's visit. Optometry Transportation Logistics Internship Attending Provider Note: Date of Last Exam:05/26/2024 with VF test then Location: [facility] Last eye exam elsewhere: [facility] (not recently) Chief Complaint:Im doing OK. Im taking the drops 3x/day left eye only. I can see better without the glasses than with them. HISTORY AND REVIEW OF SYSTEMS: OHx: 1. Non-exudative ARMD, bilateral, early dry stage 2. PCIOL OU 3. Glaucoma suspect 4. h/o giant retinal tear / RD OS (-) Pain: (+) SUAREZ: related to computer use, see above (-) Diplopia: (-) Flashes: (-) Floaters: (-) Amaurosis Fugax/Tia's: (-) Eye Injury: (+) Eye Surgery: retinoplexy OS, CE/PCIOL OU. OD was done Apr [address] Womack (-) TBI FOHx: (+) Glaucoma: brother (+) ARMD: brother DIABEIC: No LAST A1C: PERTINENT LABS: HEMOGLOBIN A1C TREND Collection DT Spec HGBA1c 04/09/2023 11:43 BLOOD 5.4 06/03/2021 08:41 BLOOD 5.4 03/11/2014 08:56 BLOOD 6.1 H NEW ALLERGIES TO REPORT: No EYE MEDICATION(S): AREDS2 BId PO SIMBRINZA Tid OS CURRENT RX WITH [facility]: Dr Dustin MD Subjective Refraction: 04/2024 OD: +0.50-0.64k133 20/20 OS: +0.50 -1.25 x 080 20/40 Add:+2.50 20/20 DVA: ( )SC ( )CC (x)Phoropter ( )CL Did not bring glasses today OD: 20/20-1 OS: 20/40-1 NVA OU: 20/ MANIFEST REFRACTION(MRx):Deferred CVF: Appear FTFC OU EOMS: Appear Full OU PUPILS: Appear ERRL(-)APD INTRAOCULAR PRESSURE (IOP) METHOD: Goldmann Time:3:35 OD:15 OS:17,18 ANTERIOR CHAMBER (AC): Penlight or slit lamp (if available) exam appears unremarkable. Pupils are not dilated. Visual Imaging Performed Today:NONE/done recently Additional Comments: /haritha/ ARACELI VALDEZ OPTOMETRY TECH Signed: 07/07/2024 15:34 07/08/2024 ADDENDUM STATUS: COMPLETED O: Lids and lashes were clear both eyes. Corneas and conjunctiva were clear both eyes. Anterior chambers were deep clear and quiet with open angles. Iris was flat both eyes. PC IOL OU are in place and clear. I repeated intraocular pressures at 3:50 PM were 15 mmHg OD and 15 mmHg OS. Previous IOP (Apr 22 2024) OD 14 mmHg OS 12 mmHg Time: 9:36am Previous IOP (NOV 28 2023) OD: 20mmHg OS: 22 mmHg Time: 2:08pm Previous Pachymetry: OD: 584um OS: 599um Fundi were reviewed with 90 diopter lens through nondilated pupils. Vitreous was clear OU. Approximately 50% horizontal and vertical cupping was seen OD and 60% OS with healthy rims and margins and peripapillary atrophy OU. Normal pigmentary architecture of the macula was seen with small scattered drusen OU. A: History of elevated pressure OS and glaucoma suspect OU. Much improved pressure today OS with Simbrinza just about 50% decrease. History of steroid responder. Early nonexudative macular degeneration OU. History of retinal detachment OS, likely macular off Pseudophakia OU. P: Continue Simbrinza OS 3 times a day. The patient will return in 6 months or sooner if any problems arise. Grant Education: After discussion and answering all 's questions, Grant demonstrated and verbalized understanding of diagnosis and [...] with a VA or non-VA provider. /haritha/ ELIF BAKER OD STAFF COUNSELING DIRECTOR Signed: 07/08/2024 07:40 ARACELI VALDEZ [place] [facility]
--- OUTSIDE RECORDS SUMMARY | 2024-07-09 08:10 | XMS_ITS ---
Author Organization [facility] Address [address] [place] [phone] Care Team Providers Care Fixed Wing Aircraft Flight Engineer Name Role Phone Gabriel MONTGOMERY, Zachery Primary Care Provider Tootie Metzger Jr, Rian Unavailable Kathy Silverio M.D Unavailable Unavailable REASON FOR VISIT please schedule f/u with Dr. Metzger in May Encounters Encounter Location Date Provider Diagnosis [facility] [address] [place] [phone] 12/11/2023 Rian Metzger Jr Plan Of Treatment No Information Progress Notes * ADRIANA JOSÉDOB:1945 (78 yo M)Acc No.[id number]:12/11/2023 Patient:?ADRIANA JOSÉ :1945???Age:78 Y???Sex:Male Address:[address] [place] [address], [address] * true * Date:? Generated for Printi ng/Faargenisg/eTransmitting on:?07/09/2024 08:09 AM EDT
--- OUTSIDE RECORDS SUMMARY | 2024-07-09 08:11 | XMS_ITS | Encounter Summary ---
Author Name [facility] Organization [facility] [place] Address [address] [place] [address] Care Team Providers Care [employer] Chief Name Role Phone NATALIE MASON Primary Care [...] PART A Jul 02, 2011 PART A [id number] ADRIANA JOSÉ PATIENT MEDICARE (WNR) MEDICARE (M) PART B Jul 02, 2011 PART B [id number] [phone] ADRIANA JOSÉ PATIENT MEDICARE (WNR) MEDICARE (M) PART A Jul 02, 2011 PART A [id number] [phone] ADRIANA JOSÉ PATIENT MEDICARE (WNR) MEDICARE (M) PART B Jul 02, 2011 PART B [id number] ADRIANA JOSÉ PATIENT MEDICARE (WNR) MEDICARE (M) PART A Jul 02, 2011 PART A [id number] [phone] ADRIANA JOSÉ PATIENT MEDICARE (WNR) MEDICARE (M) PART B Jul 02, 2011 PART B [id number] ADRIANA JOSÉ PATIENT MEDICARE (WNR) MEDICARE (M) PART A Jul 02, 2011 PART A [id number] ADRIANA JOSÉ PATIENT MEDICARE (WNR) MEDICARE (M) PART B Jul 02, 2011 PART B [id number] ADRIANA JOSÉ PATIENT [place] [employer] MED[employer] ARE SUPPL EMENT Jul 02, 2011 CORE [id number] ADRIANA JOSÉ PATIENT [place] [facility] [employer] [place] MEDIC ARE PREFE RRED Apr 02, 2015 CORE [id number] [phone] ADRIANA JOSÉ PATIENT [place] [facility] SU[employer] [place] MEDIC ARE SUPPL EMENT Jul 02, 2011 [facility] [id number] ADRIANA JOSÉ PATIENT Selected Encounter This section includes the information on record at [place] for the Encounter. Date/Time Encounter Type Encounter Description Reason Provider Source Feb 07, 2024 01:30 PM OFFICE O/P EST MOD 30 MIN PRIMARY CARE/MEDICINE ICD-10-CM Z00.8 Encounter for other general examination NATALIE SMITH [facility] Encounter Template Text not used by [place] Assessments - Encounter Diagnoses This section includes the primary and secondary diagnoses documented for the Encounter. Date/Time Primary/Secondary Diagnosis Diagnosis Name Provider Source Feb 07, 2024 02:35 PM PRIMARY Encounter for other general examination NATALIE SMITH [facility] Feb 07, 2024 02:35 PM SECONDARY Athscl heart disease of [place] coronary artery w/o ang pctrs NATALIE SMITH [facility] Feb 07, 2024 02:35 PM SECONDARY Benign prostatic hyperplasia without lower urinry tract symp NATALIE SMITH [facility] Feb 07, 2024 02:35 PM SECONDARY Essential (primary) hypertension NATALIE SMITH [facility] Feb 07, 2024 02:35 PM SECONDARY Malignant melanoma of skin, unspecified JERRY-BOSKO JACQUELINNATALIE [facility] Feb 07, 2024 02:35 PM SECONDARY Mixed hyperlipidemia JERRY-NATHAN JACQUELINNATALIE [facility] Feb 07, 2024 02:35 PM SECONDARY Nicotine dependence, cigarettes, uncomplicated JERRY-NATHAN JACQUELINNATALIE [facility] Feb 07, 2024 02:35 PM SECONDARY Non-Hodgkin lymphoma, unspecified, unspecified site LISAAZDIN-BOSKO JACQUELINNATALIE [facility] Feb 07, 2024 02:35 PM SECONDARY Obesity, unspecified NIRMALADIN-BOSKO JACQUELINNATALIE [facility] Feb 07, 2024 02:35 PM SECONDARY Other constipation JERRY-NATALIE COURTNEY [facility] Feb 07, 2024 02:35 PM SECONDARY Squamous cell carcinoma of skin, unspecified JERRY-NATALIE COURTNEY [facility] Plan of Treatment: Future Appointments (+ 6 months) and Future Tests (+/- 45 days) The Plan of Treatment section includes future care activities for the patient from [facility] [place] [facility] This section includes future appointments and future orders which are active, pending or scheduled. Future Appointments This section includes appointments that were scheduled to occur 6 months from the date of the Encounter, up to a maximum of 20 appointments. The data comes from all [facility]. Appointment Date/Time Appointment Type Appointme nt Facility Name Apr 22, 2024 09:00 AM AMBULATORY - MEDICINE [facility] Apr 22, 2024 09:15 AM AMBULATORY - MEDICINE [facility] May 26, 2024 03:30 PM [facility]UL[facility]ORY [facility] May 29, 2024 02:00 PM AMBULATORY MEDIC[facility] Jul 07, 2024 03:30 PM AMBULATORY MEDICINE [facility] Active, Pending, and Scheduled Orders This section includes a listing of several types of active, pending, and scheduled orders, including clinic medications orders, diagnostic test orders, procedure orders and consult orders; where the start date of the order is 45 days before the date of the Encounter or 45 days after the date of theEncounter. The data comes from all [place] treatment facilities. Test Date/Time Test Type Test Details Facility Name Jan 31, 2024 12:00 AM Laboratory - Chemi stry Order LIPID PANEL FASTING BLOOD (SST-SERUM) [facility] Jan 31, 2024 12:00 AM Laboratory - Chemi stry Order BASIC METABOLIC PANEL (fasting) BLOOD (SST-SERUM) [facility] Jan 31, 2024 12:00 AM Laboratory - Chemi stry Order HEMOGLOBIN A1C PANEL BLOOD (LAV-BLOOD) [facility] Jan 31, 2024 12:00 AM Laboratory - Chemi stry Order LIVER FUNCTION BLOOD (SST-SERUM) [facility] Jan 31, 2024 12:00 AM Laboratory - Chemi stry Order CBC AND DIFF (AUTO) BLOOD (LAV-BLOOD) [facility] Jan 31, 2024 12:00 AM Laboratory - Chemi stry Order TSH BLOOD (SST-SERUM) [facility] Vital Signs: All taken on the encounter date This section contains inpatient and outpatient Vital Signs collected on the date of the Encounter. Date/Time Temperature Pulse Blood Pressure Respiratory Rate SP02 Pain Height Weight Body Mass Index Source Feb 07, 2024 02:26 PM 135/85 [facility] [place] Feb 07, 2024 01:44 PM 98.3 86 143/81 95 213.8 31 [facility] IE Social History: Smoking Status (Most current) and Tobacco Use (All prior to encounter date) This section includes the most current, and the historical, smoking and tobacco- related health factors from the [place] facility where the Encounter took place. Current Smoking Status This section includes the most current smoking, or tobacco-related health factor, from the [place] facility where the Encounter took place. Date/Time Current Smoking Status Comment Facil ity May 13, 2021 02:00 PM VA-TOBACCO FORMER USER [facility] Tobacco Use History This section includes a history of the smoking, or tobacco-related health factors, that were collected on or before the date of the Encounter. The data comes from the [place] facility where the Encounter took place. 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 [facility] May 04, 2020 10:00 AM VA-TOBACCO USE MED NO [facility] May 04, 2020 10:00 AM VA-TOBACCO USE WI 30 MIN OF WAKEUP [facility] May 04, 2020 10:00 AM VA-TOBACCO USER EVERY DAY [facility] Apr 29, 2018 10:23 AM VA-TOBACCO USE 30 YEARS OR MORE [facility] Apr 29, 2018 10:23 AM VA-TOBACCO USE ADVICE [facility] Apr 29, 2018 10:23 AM 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 [facility] Apr 29, 2018 10:23 AM VA-TOBACCO USE MED NO [facility] Apr 29, 2018 10:23 AM VA-TOBACCO USE WI 30 MIN OF [facility] Apr 29, 2018 10:23 AM VA-TOBACCO USER EVERY DAY [facility] Mar 22, 2018 11:15 AM VA-TOBACCO FORMER USER [facility] Mar 22, 2018 11:15 AM VA-TOBACCO QUIT 1 TO < 5 YRS [facility] Apr 09, 2017 10:22 AM QUIT TOBACCO USE I N PAST YEAR reports quitting 4 months ago [facility] Mar 21, 2016 01:22 PM CURRENT SMOKER [facility] Mar 21, 2016 01:22 PM V1-PT NOT INTEREST ED IN QUIT TOBACCO USE [facility] Mar 11, 2015 10:58 AM CURRENT SMOKER 6 cigarettes/d [facility] Mar 11, 2015 10:58 AM V1-PT DECLINES REF TO TOBACCO CESS [facility] Mar 11, 2015 10:58 AM V1-PT DECLINES TOB ACCO CESSATION [facility] Mar 11, 2015 10:58 AM V1-PT THINKING ABO UT QUIT TOBACCO USE [facility] Mar 19, 2014 10:41 AM CURRENT SMOKER 5-6 cigarettes per day [facility] Mar 19, 2014 10:41 AM V1-PT DECLINES REF TO TOBACCO CESS [facility] Mar 19, 2014 10:41 AM V1-PT DECLINES TOB ACCO CESSATION [facility] Mar 19, 2014 10:41 AM V1-PT THINKING ABO UT QUIT TOBACCO USE [facility] Jun 02, 2013 02:03 PM V1-PT THINKING ABO UT QUIT TOBACCO USE [facility] Nov 29, 2012 01:32 PM CURRENT SMOKER Pt stated that he smokes about 6 cigaretts a day [facility] Nov 29, 2012 01:32 PM V1-PT DECLINES REF TO TOBACCO CESS [facility] Nov 29, 2012 01:32 PM V1-PT DECLINES TOB ACCO CESSATION [facility] Nov 29, 2012 01:32 PM V1-PT THINKING ABO UT QUIT TOBACCO USE [facility] Apr 30, 2012 01:32 PM V1-PT THINKING ABO UT QUIT TOBACCO USE [facility] Apr 30, 2012 01:32 PM V1-TOBACCO CESS ME DS NOT PRESCRIBED PCP WILL ORDER THIS [facility] Jun 01, 2011 08:37 AM CURRENT SMOKER Pt. states hi smokes 5-6 cigerettes a day. [facility] Jun 01, 2011 08:37 AM V1-PT DECLINES REF TO TOBACCO CESS [facility] Jun 01, 2011 08:37 AM V1-PT NOT INTEREST ED IN QUIT TOBACCO USE [facility] Apr 27, 2010 09:07 AM CURRENT SMOKER smoker for 50 yrs...smokes 6-8 cigarettes per day [facility] Apr 27, 2010 09:07 AM V1-PT DECLINES REF TO TOBACCO CESS [facility] Apr 27, 2010 09:07 AM V1-PT DECLINES TOB ACCO CESSATION [facility] Apr 27, 2010 09:07 AM V1-PT NOT INTEREST ED IN QUIT TOBACCO USE [facility] Sep 13, 2009 10:38 AM V1-PT DECLINES REF TO TOBACCO CESS [facility] Sep 13, 2009 10:38 AM V1-PT THINKING ABO UT QUIT TOBACCO USE [facility] Mar 09, 2009 01:15 PM CURRENT SMOKER 10 cigarettes per day [facility] Mar 09, 2009 01:15 PM V1-PT DECLINES REF TO TOBACCO CESS [facility] Mar 09, 2009 01:15 PM V1-PT THINKING ABO UT QUIT TOBACCO USE [facility] Feb 04, 2008 12:51 PM CURRENT SMOKER Patient states he smokes a pack of ciggs per day. [facility] Feb 04, 2008 12:51 PM V1-PT DECLINES REF TO TOBACCO CESS [facility] Feb 04, 2008 12:51 PM V1-PT READY TO RAFA T TOBACCO USE [facility] Mar 14, 2007 01:11 PM V1-PT DECLINES REF TO TOBACCO CESS [facility] Mar 14, 2007 01:11 PM V1-PT READY TO RAFA T TOBACCO USE [facility] Jun 19, 2006 08:10 AM CURRENT SMOKER counselled [facility] Jun 13, 2005 08:55 AM QUIT TOBACCO USE I N PAST YEAR continue bupropion [facility] Nov 17, 2004 09:20 AM CURRENT SMOKER 1 pack a day [facility] Jun 23, 2003 02:22 PM CURRENT SMOKER 1ppd x 30yrs [facility] Encounter Notes: All associated encounter notes This [...] 08/2020- PCP is Dr Zachery Rios in [place] - q3-4m Last visit 04/2023 Other providers: -eye [place] -podiatry [place] -dermatology - [place] [facility] - q3m -hem/onc Dr Prakash at [facility] q6m -GI Dr. 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/bread --Exercise:sedentary , some kamari work [...] current smoker -Patient undergoing evaluation by known [place] PCP, recently had echo, plan to get [...] 55% (12/2020) ECHO 01/2024 - with non [place] PCP report pending Cure rate with chemo [...] with oncology c/w annual screening with non [place] provider #LUTS: U/A negative,per pt PSA cheked by non [place] PCP pt self dc/d tamsulosin, LUTS not [...] --> repeat colonoscopy in 6-12m colonoscopy 01/2024 [facility] -->2 day prep did not work --> pt has f/u with GI Dr Metzger, in 04/2024 --> using private health insurance --Lung CA: pt aware if he has surveillance CT C/A/P with oncology no need to have CT chest at the [place] 08/2022 LDCT with oncology - no lung nodule f/u -continue with annual screening --PSA n/a --AAA (smoker/65): 2012 no AAA --Influenza (yrly): 2023 --COVID x5 --PCV13 2014 --PCV23: 2016 --HZV (>60yrs, x1): 2012 --RZV (>50yrs, x2): --TDAP: 2012 --Hep C screen: 2004 neg --HIV screen: --DEXA: --Advanced Directives: Return to clinic to see me in _9_ months, sooner PRN. Virtual ( ), F2F ( x ) ( x)fasting labs ordered prior to f/u routine -please obtain oncology note, last pcp note, colonoscopy Dr Metzger [facility]. thanks Medication Reconciliation: Outpatient: Has the patient been taking medications as documented in the EMLR? YES: The patient has been taking medications as documented in the EMLR. Essential Medication List for Review used to complete this medication reconciliation. INCLUDED IN THIS LIST: Alphabetical list of active outpatient prescriptions dispensed from this [place] (local) and dispensed from another [place] or [facility] facility (remote) as well as inpatient orders [...] STATUS: COMPLETED REcords requested from the following: [facility] Oncology/hemotology [facility] colonoscopy [facility] Dr. Metzger PCP Dr. Rios fax: [phone] /haritha/ ALLISON HERNANDEZ Signed: 02/08/2024 08:40 03/15/2024 ADDENDUM STATUS: COMPLETED Hem Onc note dated 02/26/2023 received, sent to [facility]. /haritha/ Carolina Reid RN Registered Nurse Signed: 03/15/2024 10:37 STEFAN MASON Jan 31, 2024 10:14 AM ADMINISTRATIVE NOT E: LOCAL TITLE: ADMINISTRATIVE NOTE STANDARD TITLE: ADMINISTRATIVE NOTE DATE OF NOTE: JAN 31, 2024@10:14 ENTRY DATE: JAN 31, 2024@10:14:59 AUTHOR: ALLISON SINGLETARY EXP COSIGNER: URGENCY: STATUS: COMPLETED [facility] [address] [place] [address] [phone] * ADRIANA JOSÉ [address], [place] [address] Date: JAN 31, 2024 re: This is a reminder of your upcoming PCP appt with NATALIE MASON Appointment Date: Jan@13:30 Appointment Type: In-person visit Fasting blood work NON fasting blood work CONFIRMED WITH THE Sincerely, Office Staff for: NATALIE MASON Primary Care Provider [facility] [address] [place] [id number] T [phone] F [phone] Upcoming Appointments: 02/07/2024 13:30 CWM/SO/PACT 5 05/29/2024 14:00 NHM/OPT/VISUAL IMAGING 12/05/2024 11:00 NHM/OPTOMETRY/BORASKI APPOINTMENT ABBREVIATION RECINOS (SPOPC OR SO = [address]) (GOPC OR GO = [address]) (NHM or NO = [facility]) (VVC - Video Call) (Tel-X Telephone Visit) ( - Telehealth) /haritha/ ALLISON HERNANDEZ Signed: 01/31/2024 10:15 ALLISON SINGLETARY [facility]
--- OUTSIDE RECORDS SUMMARY | 2024-07-09 08:11 | XMS_ITS ---
Author Organization [facility] Address [address] [place] [address] Care Team Providers Care Rig Welder Name Role Phone Gabriel MONTGOMERY, [place] Primary Care Provider Raquel Ruelas Unavailable [phone] Allergies No Known Allergies REASON FOR VISIT Painful nail(s) aggravated by shoes causing difficulty standing/walking Medications Medication SIG (Take, Route, Frequency, Duration) Notes Start Date End Date Status Lisinopril 5 MG 1 tablet Orally Once a day for 30 day(s) Active buPROPion HCl ER (Smoking Det) 150 MG 1 tablet in the morning Orally Once a day for 30 day(s) Active Atorvastatin Calcium 40 MG 1 tablet Orally Once a day for 30 day(s) Active Multivitamin Active PreserVision AREDS 2 Active Apixaban 5 MG as directed Orally Not-Taking Ciclopirox Olamine 0.77 % 1 application Externally [...] an other tobacco user? No Vital Signs Blood pressure systolic 120 mm Hg 07/05/19 25 Blood pressure diastolic 80 mm Hg 025 Height 5 ft 9 in in 07/04/2024 Weight 200 lbs 07/04/2024 BMI 29.53 kg/m2 07/04/2024 Encounters Encounter Location Date Provider Diagnosis [facility] [address] [address] 07/04/2024 Raquel Smith Onychomycosis B35.1 ; Pain in right toe(s) M79.674 and Pain in left toe(s) M79.675 Assessments Encounter Date Diagnosis (ICD Code) Assessment Notes Treatment Notes Treatment Clinical Notes Section Notes 07/04/2024 Onychomycosis (ICD-10 - B35.1) 07/04/2024 Pain in right toe(s) (ICD-10 - M79.674) 07/04/2024 Pain in left toe(s) (ICD-10 - M79.675) Plan Of Treatment Next Appt Details Follow Up: 2 Months, Reason: Provider Name:Raquel castillo, 09/19/2024 01:45:00 PM, [address] [place] [address], [phone], Procedure Notes * Category Sub-Category Detail Notes Debride Nail 6-10 Nail debridement Due to the cl inical pathology outlined in the exam findings, performance of this nail treatment is medically necessary as its management by an unskilled/untrained nonprofessional would put this patients foot and overall health at risk. Therefore, debridement to affected nail(s), as described in exam (TA, T1, T2, T3, T4, T5, T6, T7, T8, T9, ), was performed exclusively by the physician of record to reduce/remove overall nail length, girth, thickness, subungual debris, and necrotic tissue, by manual and/or electrical means through the use of a nail nipper and/or dremel-type plate glass grinder, to a more viable healthy nail plate or bed tissue 6-10 nails in total. Silver nitrate was used for any petechial bleeding as necessary. Definitive antifungal treatment options, both pharmaceutical and surgical, have been reviewed and discussed with the patient. The patient solely prefers the use of intermittent/as needed professional debridement services for their nail condition and understands the need for additional periodic treatments to maintain effectiveness in symptomatic relief - [id number] Progress Notes * Robert MCINTYRE JDOB:1945 (78 yo M)Acc No.[id number]:07/04/2024 Progress Note Patient:?Robert MCINTYRE Provider:?Raquel Smith DPM :1945???Age:78 Y???Sex:Male Gabriel e:07/04/2024 Address:[address] [place], [place] [id number] Pcp:Zachery Rios MD Subjective: * Chief Complaints: * ???Painful nail(s) aggravate d by shoes causing difficulty standing/walking * HPI: ???Painful Nails:?Pt States Last PCP Visit:?Date:?02/07/2024 * ROS:?General/Constitutional:?Nausea?denies, denies.?Vomiting?denies, denies.?Hunger Thirst?denies, denies.?Loss appetite?denies, denies.?Chills?denies, denies.?Fatigue?denies, denies.?Fever?denies, denies.?Night Sweats denies, denies.?Unexplained weight loss?denies, denies.?Unexplained weight gain?denies, denies.?HEENTM:?Dentures?denies, denies.?Dizziness?denies, denies.?Glasses/contacts?denies, denies.?Retinopathy?denies, denies.?Blurred/double vision?denies, denies.?TMJ?denies, denies.?Discharge/drainage?denies, denies.?Implants?denies, denies.?Sore throat?denies, denies.?Dental implants?denies, denies.?Hard of hearing ?denies, denies.?Difficulty chewing/swallowing/speaking?denies, denies.?Nose bleeds?denies, denies.?Sore mouth?denies, denies.?Respiratory:?On Oxygen?denies, denies.?Pneumonia/pleurisy?denies, denies.?Bronchitis?denies, denies.?Emphysema?denies, denies.?Coughing?denies, denies.?Cough blood?denies, denies.?Shortness of breath?denies, denies.?Wheezing?denies, denies.?Cardiovascular:?Pacemaker?denies, denies.?MVP?denies, denies.?WPW?denies, denies.?CHF?denies, denies.?Heart attack?denies, denies.?Septal defect?denies, denies.?Rapid beat?denies, denies.?Chest pain ?denies, denies.?Atrial Fib.?denies, denies.?Murmur/Palpitations?denies, denies.?Gastrointestinal:?Hemorrhoids?denies, denies.?Stomach/Abdominal pain?denies, denies.?Dark blood stool?denies, denies.?Irritable bowel ?denies, denies.?Constipation?denies, denies.?Diarrhea?denies, denies.?Hematology:?Swelling?denies, denies.?Clots?denies, denies.?Varicose Veins?denies, denies.?Bruising?denies, denies.?Bleeding problem?denies, denies.?Genitourinary:?Blood urine?denies, denies.?Frequent/Painfu/urination/bladder control?denies, denies.?Kidney stones?denies, denies.?Infection (UTI)?denies, denies.?Nephropathy?denies, denies.?sex trans dis (STD)?denies, denies.?Prostate?denies, denies.?Musculoskeletal:?Hammertoes?denies, denies.?Bunions?denies, denies.?Back Pain?denies, denies.?Muscle Cramps/ Resting?denies, denies.?Muscle cramps / walking?denies, denies.?Generalized aches and pains?denies, denies.?Weakness?denies, denies.?Integ.:?Snyder?denies, denies.?Scars?denies, denies.?Corns/calluses?denies, denies.?Ingrown nails?denies, denies.?Painful nails?denies, denies.?Open Sores?denies, denies.?Rashes?denies, denies.?Neurologic:?Difficulty sleeping?denies, denies.?Brain disorder?denies, denies.?Numbness?denies, denies.?Balance trouble?denies, denies.?Confusion?denies, denies.?Fainting/blackouts?denies, denies.?Tingling?denies, denies.?Tremors?denies, denies.? * Medical History:? * Surgical History:?melanoma 2 017, 2018lymphoma 2021cataract surgery * Hospitalization/Major Diagno stic Procedure:?Denies Past Hospitalization [...] Tablet 1 tablet Orally Once a day buPROPion HCl ER (Smoking Det) 150 MG Tablet Extended Release 12 Hour 1 tablet in the morning Orally Once a day Lisinopril 5 MG Tablet 1 tablet Orally Once a day Ciclopirox Olamine 0.77 % Cream 1 application Externally Twice a day Taking PreserVision AREDS 2 Taking Multivitamin Taking Atorvastatin Calcium 40 MG Tablet 1 tablet Orally Once a day Taking buPROPion HCl ER (Smoking Det) 150 MG Tablet Extended Release 12 Hour 1 tablet in the morning Orally Once a day Taking Lisinopril 5 MG Tablet 1 tablet Orally Once a day Taking Ciclopirox Olamine 0.77 % Cream 1 application Externally Twice a day Not-Taking/PRNApixaban 5 MG Tablet as directed Orally Medication [...] no pain on palpation due to neuropathy , TA, T1, T2, T3, T4, T5, T6, T7, T8, T9.? Assessment: * Assessment: 1.?Pain in right toe(s) - M7 9.674???2.?Onychomycosis - B35.1 (Primary)???3.?Pain in left toe(s) - M79.675??? Plan: * Treatment: * Procedures:?Debride Nail 6-10:?Nail debridement?Due to the clinical pathology outlined in the exam findings, performance of this nail treatment is medically necessary as its management by an unskilled/untrained nonprofessional would put this patients foot and overall health at risk. Therefore, debridement to affected nail(s), as described in exam (TA, T1, T2, T3, T4, T5, T6, T7, T8, T9, ), was performed exclusively by the physician of record to reduce/remove overall nail length, girth, thickness, subungual debris, and necrotic tissue, by manual and/or electrical means through the use of a nail nipper and/or dremel-type plate glass grinder, to a more viable healthy nail plate or bed tissue 6- 10 nails in total. Silver nitrate was used for any petechial bleeding as necessary. Definitive antifungal treatment options, both pharmaceutical and surgical, have been reviewed and discussed with the patient. The patient solely prefers the use of intermittent/as needed professional debridement services for their nail condition and understands the need for additional periodic treatments to maintain effectiveness in symptomatic relief - [id number].? * Procedure Codes:?59268 JEANNEI DE NAIL, 6 OR MORE * Follow Up:?2 Months * Images: * Sign off status: Completed true * Provider:?Raquel Smith DPM Date:?07/2024 Generated for Salvador guajardo/Flori/Yecenia on:?07/09/2024 08:10 AM EDT History and Physical Notes * HPI (History of Present Illness) Category Sub-Category Detail Notes Category Not es Painful Nails Pt States Last PCP Visit: Date:: 02/07/2024 Examination Category Sub-Category Detail Notes Category Not es Nails NAILS are: Elongated, overg rown, dystrophic, lytic, greater than 3mm thick, discolored and friable with crumbly malodorous subungual debris with dull to no pain on palpation due to neuropathy , TA, T1, T2, T3, T4, T5, T6, T7, T8, T9
--- OUTSIDE RECORDS SUMMARY | 2024-07-09 08:11 | XMS_ITS ---
Author Organization [facility] Address [address] [place] [address] Care Team Providers Care Integrated Pest Management Technician Name Role Phone Stephen Rios MDh Primary Care Provider Raquel Ruelas Unavailable [phone] De La Vega [...] Once a day for 30 day(s) Active Encounters Encounter Location Date Provider Diagnosis [address] [address] 04/18/2024 Raquel Smith Plan Of Treatment Next Appt Details Provider Name:Raquel castillo, 09/19/2024 01:45:00 PM, [address] [place], [address], Progress Notes * Robert MCINTYREDOB:1945 (78 yo M)Acc No.[id number]:04/18/2024 Progress Note Patient:?Robert MCINTYRE Provider:?Raquel Smith DPM :1945???Age:78 Y???Sex:Male Gabriel e:04/18/2024 Address:[address] [place] [address], [id number] Pcp:Zachery Rios MD Subjective: * Chief Complaints: * ???1. Dr De La Vega. * HPI: ???Painful Nails:?Pt States Last PCP Visit:?Date:?11/01/2023 * Medical History:? * Medications:?Taking PreserVi theresa AREDS 2 , Taking Multivitamin , Taking [...] MG Tablet as directed Orally Objective: * Vitals:? Assessment: Plan: * Treatment: * Images: * The named appointment provid er may or may not be the originator of this progress note, and it is not deemed complete until electronically signed by the appointment provider. Sign off status: Pending * Provider:?Raquel Smith DPM Date:? Generated for Salvador guajardo/Flori/Kerriesmitting on:?07/09/2024 08:10 AM EDT History and Physical Notes * HPI (History of Present Illness) Category Sub-Category Detail Notes Category Not es Painful Nails Pt States Last PCP Visit: Date:: 11/01/2023
--- OUTSIDE RECORDS SUMMARY | 2024-07-09 08:11 | XMS_ITS ---
Author Organization [facility] Address [address] [place] [address] Care Team Providers Care Senior Billing Consultant Name Role Phone Gabriel MONTGOMERY, Zachery Primary Care Provider Rian Larsen Jr Unavailable Kathy Silverio M.D Unavailable Unavailable REASON FOR VISIT hx polyps Encounters Encounter Location Date Provider Diagnosis [facility] Outpatient [address] [place] [phone] 12/07/2023 Rian Metzger Jr Colon cancer screening Z12.11 Assessments Encounter Date Diagnosis (ICD Code) Assessment Notes Treatment Notes Treatment Clinical Notes Section Notes 12/07/2023 Colon cancer screening (ICD-10 - Z12.11) Plan Of Treatment No Information Progress Notes * ADRIANA JOSÉ JDOB:1945 (78 yo M)Acc No.[id number]:12/07/2023 COLON WITH MAC Patient:?ADRIANA JOSÉ Provider:?Rian Metzger MD :1945???Age:78 Y???Sex:Male Gabriel e:12/07/2023 Address:[address] [place] [address] Pcp:Zachery Rios MD Subjective: * Chief Complaints: * ???1. Hx polyps. * Medical History:? Objective: * Vitals:? Assessment: * Assessment: 1.?Colon cancer screening - Z12.11 (Primary)??? Plan: * Treatment: * Procedure Codes:?49475 DIAGN OSTIC COLONOSCOPY, 0529F INTRVL 3+YRS PTS CLNSCP DOCD * * The named appointment provid er may or may not be the originator of this progress note, and it is not deemed complete until electronically signed by the appointment provider. Sign off status: Pending * Provider:?Rian Metzger MD Date:?0 12/07/2023 Generated for Salvador guajardo/Flori/Jamesitting on:?07/09/2024 08:10 AM EDT
--- OUTSIDE RECORDS SUMMARY | 2024-07-09 08:11 | XMS_ITS ---
Author Name [facility] Organization [facility] Address [address] [place] [address] Care Team Providers Care Nib Finisher Name Role Phone NATALIE MASON Primary Care [...] PART A Jul 02, 2011 PART A [id number] ADRIANA JOSÉ PATIENT MEDICARE (WNR) MEDICARE (M) PART B Jul 02, 2011 PART B [id number] [phone] ADRIANA JOSÉ PATIENT MEDICARE (WNR) MEDICARE (M) PART B Jul 02, 2011 PART B [id number] ADRIANA JOSÉ PATIENT MEDICARE (WNR) MEDICARE (M) PART A Jul 02, 2011 PART A [id number] [phone] ADRIANA JOSÉ PATIENT MEDICARE (WNR) MEDICARE (M) PART B Jul 02, 2011 PART B [id number] [phone] ADRIANA JOSÉ PATIENT MEDICARE (WNR) MEDICARE (M) PART A Jul 02, 2011 PART A [id number] ADRIANA JOSÉ PATIENT MEDICARE (WNR) MEDICARE (M) PART B Jul 02, 2011 PART B [id number] ADRIANA JOSÉ PATIENT MEDICARE (WNR) MEDICARE (M) PART A Jul 02, 2011 PART A [id number] ADRIANA JOSÉ PATIENT [place] [employer] [facility] [employer] ARE SUPPL EMENT Jul 02, 2011 CORE [id number] ADRIANA JOSÉ PATIENT [employer] [facility] MED[employer] ARE PREFE RRED Apr 02, 2015 CORE [id number] ADRIANA JOSÉ PATIENT [employer] [employer] MED[employer] ARE SUPPL EMENT Jul 02, 2011 CORE [id number] [phone] ADRIANA JOSÉ PATIENT Selected Encounter This section includes the information on record at [place] for the Encounter. Date/Time Encounter Type Encounter Description Reason Pro vider Source May 27, 2024 12:04 PM Outpatient Encounter ADMIN PAT ACTIVTIES (MASNONCT) IHE Encounter Template Text not used by [place] Plan of Treatment: Future Appointments (+ 6 months) and Future Tests (+/- 45 days) The Plan of Treatment section includes future care activities for the patient from all [place] treatmentfacilities. This section includes future appointments and future orders which are active, pending or scheduled. Future Appointments This section includes appointments that were scheduled to occur 6 months from the date of the Encounter, up to a maximum of 20 appointments. The data comes from all [place] treatment facilities. Appointment Date/Time Appointment Type Appointme nt Facility Name May 29, 2024 02:00 PM [facility] Jul 07, 2024 03:30 PM [facility] Oct 09, 2024 01:00 PM [facility] Social History: Smoking Status (Most current) and Tobacco Use (All prior to encounter date) This section includes the most current, and the historical, smoking and tobacco- related health factors from the [place] facility where the Encounter took place. Current Smoking Status This section includes the most current smoking, or tobacco-related health factor, from the [place] facility where the Encounter took place. Date/Time Current Smoking Status Comment Cris ity Feb 07, 2024 01:30 PM VA-TOBACCO USER SOME DAYS [place] [facility] [place] [facility] Tobacco Use History This section includes a history of the smoking, or tobacco-related health factors, that were collected on or before the date of the Encounter. The data comes from the [place] facility where the Encounter took place. Date/Time Smoking Status/Tobacco Use Comment F acility Feb 07, 2024 01:30 PM VA-TOBACCO USE 30 YEARS OR MORE [facility] [place] [facility] Feb 07, 2024 01:30 PM VA-TOBACCO USE ADVICE [facility] [place] [facility] Feb 07, 2024 01:30 PM VA-TOBACCO USE KENO WRITER/RUNNER NO [facility] [place] [facility] Feb 07, 2024 01:30 PM VA-TOBACCO USE MED NO [facility] [place] [facility] Feb 07, 2024 01:30 PM VA-TOBACCO USER SOME DAYS [facility] [place] [facility] May 11, 2022 10:21 AM VA-TOBACCO USE 30 YEARS OR MORE [facility] [place] [facility] May 11, 2022 10:21 AM VA-TOBACCO USE ADVICE [facility] [place] [facility] May 11, 2022 10:21 AM VA-TOBACCO USE KENO WRITER/RUNNER NO [facility] [place] [facility] May 11, 2022 10:21 AM VA-TOBACCO USE MED NO [facility] [place] [facility] May 11, 2022 10:21 AM VA-TOBACCO USE WI 30 MIN OF WAKEUP [facility] [place] [facility] May 11, 2022 10:21 AM VA-TOBACCO USER EVERY DAY [facility] [place] [facility] Encounter Notes: All associated encounter notes This section contains the clinical notes associated to the Encounter. Date/Time Encounter Note(s) Provider Source May 27, 2024 12:04 PM PHARMACY NOTE: LOCAL TITLE: V1 PHARMACY CUSTOMER CARE MEDICATION RENEWAL STANDARD TITLE: PHARMACY NOTE DATE OF NOTE: MAY 27, 2024@12:04 ENTRY DATE: MAY 27, 2024@12:04:14 AUTHOR: NILTON MCCLURE EXP COSIGNER: URGENCY: STATUS: COMPLETED V1 PHARMACY CUSTOMER CARE MEDICATION RENEWAL Has ADDENDA Date: May Division: [facility] referred by Pharmacy Call Center for medication renewal: Non-controlled/maintena nce medication Medications requested: [id number] BUPROPION HCL 150MG 12HR SA TAB Defer to primary care provider To be mailed . Please review and renew if appropriate. *This note was generated by [facility] Pharmacy Customer Care. If you have any questions or need assistance, do not contact this author. Please refer all questions to your local, on-site pharmacy departments. /shalini MCCLURE Dental Hygiene Teacher, MS/Pharmacy Customer Care Signed: 05/27/2024 12:04 Receipt Acknowledged By: 05/30/2024 13:13 /haritha/ ELIZABETH TSANG NP NURSE PRACTITIONER for NATALIE Emmanuel MARLON 05/28/2024 15:48 /haritha/ JOZEF CAVANAUGH RN REGISTERED NURSE 05/27/2024 ADDENDUM STATUS: COMPLETED Patient is out of medication and would appreciate expedited delivery if available. Please contact the outpatient pharmacy for assistance with shipment /shalini MCCLURE Dental Hygiene Teacher, MS/Pharmacy Customer Care Signed: 05/27/2024 12:05 NILTON MCCLURE [place] [facility]
--- OUTSIDE RECORDS SUMMARY | 2024-07-09 08:11 | XMS_ITS | Clinical Summary ---
Author Organization [facility] Address [id number] [place] [address] Care Team Providers Care Commercial Sales Consultant Name Role Phone Zachery Rios MD Primary Care Provider [phone] Surgical History Surgery Date Site/Laterality Comments OTHER SURGICAL HISTORY PROCEDURE: [place] EXCISION MALIGNANT LESION F/E/E/N/L 0.5 CM/< OTHER SURGICAL HISTORY 03/15/2017 Left PROCEDURE: [place] ICAPSULAR CATARACT XTRJ INSJ IO LENS PRSTH 1 STG Medical History Medical History Date Comments History of hypertension DX:Histo ry of hypertension Gout DX:Gout History of high cholesterol DX:H istory of high cholesterol Family History Relation Name Status Comments Father Mother Social History Tobacco Use Types Packs/Day Years Used Date Smoking Tobacco: Former Cigarettes 1 50 0 04/02/1966 - 04/02/2016 Smokeless Tobacco: Never Alcohol Use Standard Drinks/Week Comments Yes 0 (1 standard drink = 0.6 oz pur e alcohol) Sex and Gender Information Value Date Recorded Sex Assigned at Not on file Legal Sex Male 5:51 PM EST Gender Identity Not on file Sexual Orientation Not on file Obstetrics History Plan of Treatment Health Maintenance Due Date Last Done Comments DTaP,Tdap,and Td Vaccines (1 - Tdap) 1965 Pneumococcal Vaccine: 50+ Ye ars (1 of 1 - PCV) 1996 Zoster Vaccines (1 of 2) 1996 RSV Immunization Adult Patie nts (1 - 1-dose 75+ series) 2021 COVID-19 Vaccine (2023-2 5 season) 2023 Influenza Vaccine (#1) 2023 HIB Vaccines Aged Out No longer eligi ble based on patient's age to complete this topic HPV Vaccines Aged Out No longer eligi ble based on patient's age to complete this topic Hepatitis A Vaccines Aged Out No long er eligible based on patient's age to complete this topic Hepatitis B Vaccines Aged Out No long er eligible based on patient's age to complete this topic IPV Vaccines Aged Out No longer eligi ble based on patient's age to complete this topic MMR Vaccines Aged Out No longer eligi ble based on patient's age to complete this topic Meningococcal ACWY Vaccine Aged Out N o longer eligible based on patient's age to complete this topic Meningococcal B Vaccine Aged Out No l onger eligible based on patient's age to complete this topic RSV Immunization Patients Un zainab 20 months Aged Out No longer eligible b ased on patient's age to complete this topic Varicella Vaccines Aged Out No longer eligible based on patient's age to complete this topic Care Teams Commercial Sales Consultant Relationship Specialty Start Date End Date Zachery Rios MD [address] [place] [address] Dr [address] [place] PCP - General Internal Medicine 02/05/18
--- OUTSIDE RECORDS SUMMARY | 2024-07-09 08:11 | XMS_ITS | Patient Health Record ---
Author Organization [facility] Address [address] [place] [address] Care Team Providers Care Pick Pack Worker Name Role Phone Gabriel MONTGOMERY, [place] Primary Care Provider Raquel Ruelas Unavailable [phone] Allergies No Known Allergies Reason For Referral [...] Problem Status W/U Status Risk Notes Problem [id number] Neuropathy (G62.9) Active confirmed Vital Signs Blood pressure diastolic 80 mm Hg 07/04/2024 Height 5 ft 9 in in 07/04/2024 Blood pressure systolic 120 mm Hg 07/04/2024 Weight 200 lbs 07/04/2024 BMI 29.53 kg/m2 07/04/2024 Encounters Encounter Location Date Provider Diagnosis [address] [address] 08/24/2023 Raquel Perica Tinea unguium B35.1 ; Tinea pedis of both feet B35.3 ; Pain in toe of right foot M79.674 ; Pain in toe of left foot M79.675 and Neuropathy G62.[address] [address] 11/16/2023 Raquel Perica Tinea unguium B35.1 ; Tinea pedis of both feet B35.3 ; Pain in toe of right foot M79.674 ; Pain in toe of left foot M79.675 and Neuropathy G62.[address] [address] 01/25/2024 Raquel Perica Onychomycosis B35.1 ; Pain in right toe(s) M79.674 and Pain in left toe(s) M79.[address] [address] 04/23/2024 Raquel Perica Onychomycosis B35.1 ; Pain in right toe(s) M79.674 and Pain in left toe(s) M79.[address] [address] 07/04/2024 Raquel Perica Onychomycosis B35.1 ; Pain in right toe(s) M79.674 and Pain in left toe(s) M79.[address] [address] 08/08/2023 [facility] [place] [address] [place] [address] 11/16/2023 Raquel Smith Assessments Encounter Date Diagnosis (ICD Code) Assessment Notes Treatment Notes Treatment Clinical Notes Section Notes 08/24/2023 Tinea unguium (ICD-10 - B35.1) 11/16/2023 Tinea unguium (ICD-10 - B35.1) 01/25/2024 Pain in right toe(s) (ICD-10 - M79.674) 01/25/2024 Onychomycosis (ICD-10 - B35.1) 04/23/2024 Pain in right toe(s) (ICD-10 - M79.674) 04/23/2024 Onychomycosis (ICD-10 - B35.1) 07/04/2024 Pain in right toe(s) (ICD-10 - M79.674) 07/04/2024 Onychomycosis (ICD-10 - B35.1) 07/04/2024 Pain in left toe(s) (ICD-10 - M79.675) 04/23/2024 Pain in left toe(s) (ICD-10 - M79.675) 11/16/2023 Tinea pedis of both feet (ICD-10 [...] - M79.675) 11/16/2023 Neuropathy (ICD-10 - G62.9) 08/24/2023 Neuropathy (ICD-10 - G62.9) Plan Of Treatment Next Appt Details Provider Name:Raquel castillo, 09/19/2024 01:45:00 PM, [address] [place], [address], Insurance Providers Payer Name Payer Address Payer Phone Subscriber Number Group Number Insured Name Patient Relationship to Insured Coverage Start Date Coverage End Date Medicare [employer] [address] [place] [address] [id number] Robert Mcintyre Self - patient is the insured [employer] Preferred [address] [place] [address] [phone] [id number] Robert Mcintyre Self - patient is the insured Medical (General) History Medical History History ICD Code Arthritis Back,Hip,and Knee pain Cancer Cataracts High blood pressure Macular degeneration Numbness Surgical History Surgery Date(Month/Year) melanoma 2017, 2018 lymphoma 2020 cataract surgery
--- OUTSIDE RECORDS SUMMARY | 2024-07-09 08:11 | XMS_ITS | Continuity of Care Document ---
Author Name [facility] Organization [facility] Care Team Providers Care Camera Engineer Name Role Phone [facility] Unavailable Unavailable Problems Combined list of problems [...] ZACARIAS Comment: Right IJ Port-A-Cath in place [place] Basal cell carcinoma of face (SNOMED CT 726364756) Active Condition [facility] Benign essential hypertension (SNOMED CT 3384671) Active Condition [place] Benign Prostatic Hypertrophy without Outflow Obstruction (SCT 404513563) Active Condition [place] Body mass index 25-29 - overweight Active Condition [facility] Coronary arteriosclerosis Active Condition [facility] DEPRESSIVE DISORDER Active Condition [place] Drug Hypersensitivity Active Condition Mar 14 7 Entered By: ALEX LY Comment: NSAID (Naprosyn) hypersensivity [facility] family history of melanoma Active Condition [place] H/O Malignant melanoma Active Condition May 04, 2020 Entered By: NATAILE ZACARIAS Comment: nose x2, s/p surgery- f/w [place] dermatology [place] HEMATURIA Active Condition [place] History of adenomatous polyp of colon Active Condition [place] Hyperlipidemia (SNOMED CT 85303160) Active Condition [place] Impaired fasting glucose (SNOMED CT 574384571) Active Condition [place] Light tobacco smoker (SNOMED CT 079817710628014) Active Condition [facility] Non-Hodgkin lymphoma Active Condition May 15, 2021 Entered By: NATALIE ZACARIAS Comment: 08/2020 Diffuse large B-cell lymphomaFeb 2021 Entered By: NATALIE ZACARIAS Comment: s/p small bowel resection 08/2020Feb 2021 Entered By: NATALIE ZACARIAS Comment: s/p R CHOP -6 cycles completed 03/2021Feb 2021 Entered By: NATALIE ZACARIAS Comment: f/w hem/onc [facility] McFeb 2021 Entered By: NATALIE ZACARIAS Comment: R IJ vein- [place] Osteoarthrosis, unspecified whether generalized or localized, involving unspecif Active Condition Oct 31 007 Entered By: CLAIRE BRISCOE Comment: bilateral knees[mild DJD] unrelated to service [facility] Rotator cuff (capsule) sprain or strain (ICD-9-CM 840.4) Active Condition [facility] Spondylosis Active Condition Jan 11, 2005 Entered By: DALE GUSTAFSON Comment: spondylolysis [place] Squamous cell carcinoma of skin Active Condition [facility] Unspecified internal derangement of knee (ICD-9-CM 717.9) Active Condition [facility] Elevated blood pressure reading without diagnosis of hypertension (ICD-9-CM 796. 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, left eye [facility] Diagnosis: ICD-10-CM Z46.0 Encounter for fit/adjst of spectacles and contact lenses Active Diagnosis [facility] Diagnosis: ICD-10-CM Z00.8 Encounter for other general examination Active Diagnosis [place] Diagnosis: ICD-10-CM C43.9 Malignant melanoma of skin, unspecified Active Diagnosis [place] Medications Combined list of outpatient medications from Department of Defense and Veterans Affairs facilities.Medications provided include 1) outpatient medications from the last 15 months, and 2) patient-reported medications. Medication Details Route Status Patient Instructions Prescription Expires Prescription Number Last Dispense Date Ordering Provider Order Date Order Qty Source ASPIRIN 81MG TAB,EC TAKE ONE TABLET BY MOUTH ONCE DAILY ORAL ACTIVE NATALIE JACOBO 2023 [facility] BRIMONIDINE 0.2%/BRINZO LAMIDE 1% SUSP,OPH INSTILL 1 DROP INTO THE LEFT EYE THREE TIMES A DAY OPHTHA LMIC ACTIVE 07/08/2025 [id number] Mike BAKER NDREW E 2024 8 [facility] BRIMONIDINE 0.2%/BRINZO LAMIDE 1% SUSP,OPH INSTILL 1 DROP INTO THE LEFT EYE THREE TIMES A DAY OPHTHA LMIC DISCONT INUED 06/25/2024 [id number] 5 Mike BAKER NDREW E 2024 8 [facility] BRIMONIDINE 0.2%/BRINZO LAMIDE 1% SUSP,OPH INSTILL 1 DROP INTO THE LEFT EYE THREE TIMES A DAY OPHTHA LMIC DISCONT INUED 05/11/2024 [id number] EMELYN GOMEZ EY P 2024 8 [facility] BUPROPION HCL 150MG 12HR TAB,SA TAKE ONE TABLET BY MOUTH ONCE DAILY ORAL SUSPEND ED 05/31/2025 [id number] 5 Gregory TSANG 2024 90 [facility] IELD BUPROPION HCL 150MG 12HR TAB,SA TAKE ONE TABLET BY MOUTH ONCE DAILY ORAL DISCONT INUED 05/13/2024 [id number] 4 STEFAN JACOBOJENKA Cholo 2023 90 [place] DOCUSATE NA 50MG/SENNOS IDES 8.6MG TAB TAKE 1 TABLET BY MOUTH ONCE DAILY FOR CONSTIPA TION ORAL ACTIVE 02/07/2025 [id number] HUYEN JACOBOJose GJESSICAJose GELIANE 2023 100 [place] KETOROLAC TROMETHAMIN E 0.5% SOLN,OPH INSTILL 1 DROP INTO THE RIGHT EYE THREE TIMES A DAY FOR 3 WEEKS FOLLOWIN G CATARACT SURGERY OPHTHA LMIC ACTIVE 02/08/2025 [id number] SAMRA LAUGHLIN VID R 2023 5 [facility] LISINOPRIL 5MG TAB TAKE ONE TABLET BY MOUTH ONCE DAILY TO CONTROL BLOOD PRESSURE ORAL ACTIVE 01/04/2025 [id number] RA BRENNON ARCEO 2023 90 [facility] LISINOPRIL 5MG TAB TAKE ONE TABLET BY MOUTH ONCE DAILY TO CONTROL BLOOD PRESSURE ORAL DISCONT INUED 03/29/2024 [id number] JORGE BYRD 2022 90 [place] MULTIVIT/OP HTH AREDS2/LUTE IN/ZEAXANTH IN CAP/TAB TAKE 1 CAPSULE BY MOUTH TWICE DAILY IN THE MORNING AND EVENING, WITH FOOD ORAL ACTIVE 06/30/2025 [id number] 5 NATALIE JACOBO 2024 120 [facility] MULTIVIT/OP HTH AREDS2/LUTE IN/ZEAXANTH IN CAP/TAB TAKE 1 CAPSULE BY MOUTH TWICE DAILY IN THE MORNING AND EVENING, WITH FOOD ORAL DISCONT INUED 06/07/2024 [id number] CHRISTINE PALOMARES B 2023 120 [facility] MULTIVITAMI NS W/MINERALS TAB TAKE ONE TABLET BY MOUTH ORAL ACTIVE DASHA GUSTAFSON 2004 [place] POLYETHYLEN E GLYCOL 3350 PWDR,ORAL TAKE 17 GRAMS(FI LL CAP TO 17GM LINE) BY MOUTH ONCE DAILY NEEDED FOR CONSTIPA TION [MIX WITH 4 TO 8OZ. OF BEVERAGE ] ORAL 08/03/2023 [id number] 4 NATALIE JACOBO 2022 510 [facility] IELD PREDNISOLON E ACETATE 1% SUSP,OPH INSTILL 1 DROP INTO THE RIGHT EYE FOUR TIMES A DAY FOR 3 WEEKS FOLLOWIN G SURGERY. SHAKE WELL. OPHTHA LMIC ACTIVE 02/08/2025 [id number] [place],DA VID R 2023 5 [facility] ROSUVASTATI N CA 40MG TAB TAKE ONE TABLET BY MOUTH ONCE DAILY FOR CHOLESTE ROL REPLAC ES ATORVAST ATIN ORAL ACTIVE 02/07/2025 [id number] 5 NATALIE JACOBO 2023 90 [facility] IELD ROSUVASTATI N CA 40MG TAB TAKE ONE TABLET BY MOUTH ONCE DAILY FOR CHOLESTE ROL REPLAC ES ATORVAST ATIN ORAL DISCONT INUED 05/28/2024 [id number] NATALIE JACOBO 2023 90 [facility] IELD Immunizations Combined list of available immunizations from the Department of Defense and Veterans Affairs facilities. Immunization Series Date Given Administered By Site Reaction Lot Number CVX Code Drug Vp Digital Marketing Social Media And Crm Status Comments Source INFLUENZA, UNSPECIFIED FORMULATION 2023 [...] MCG DOSE 3 2020 [address] [facility] INFLUENZA, UNSPECIFIED FORMULATION 2020 88 complet [address] [facility] COVID-19 (MODERNA), MRNA, LNP-S, PF, 100 MCG/0.5 ML DOSE 2 2020 207 complet ed MOD; [id number]; 1 [place] COVID-19 (MODERNA), MRNA, LNP-S, PF, 100 MCG/0.5 ML DOSE 1 2020 207 complet ed MOD; [id number]; 1 [place] ZOSTER RECOMBINANT 2 2020 [...] Reference Range Date Interpretation Specimen Comments Source TSH THYROTROPIN [UNITS/VOLU ME] IN SERUM OR PLASMA 1.16 u[IU]/ mL 0.35 - 5.00 04/09 Specimen Type: SERUM Comment: Hemolysis present analysis cannot be performed. Hemolysis present may falsly elevate Potassium Total and Direct Bili, Iron, AST, %Fe. Ordering Provider: MELVINA MOON Report Released Date/Time: Mar 27, 2023 03:03 PM Reporting [facility]: [facility] [address] [address] Performing Lab: [facility] [address] [address] [place] HEMOGLOBI N A1C PANEL HEMOGLOBIN A1C/HEMOGLO BIN.TOTAL [...] be between 8.73 and 9.27. Ref: http://www. ngsp.org/[place] Pdata.asp Ordering Provider: MELVINA MOON Report Released Date/Time: Mar 27, 2023 03:03 PM Reporting Lab: [address] [address] Performing Lab: [address] [address] [place] LIPID PANEL FASTING CHOLESTEROL [MASS/VOLUM E] IN SERUM OR PLASMA 174 mg/dL 04/09 Specimen Type: SERUM Comment: Hemolysis present analysis cannot be performed. Hemolysis present may falsly elevate Potassium Total and Direct Bili, Iron, AST, %Fe. Ordering Provider: MELVINA MOON Report Released Date/Time: Mar 27, 2023 03:03 PM Reporting Lab: [address] [address] Performing Lab: [address] [place] [address] [place] LIPID PANEL FASTING TRIGLYCERID E [MASS/VOLUM E] IN SERUM OR PLASMA 91 mg/dL 0 - 150 04/09 Specimen Type: SERUM Comment: Hemolysis present analysis cannot be performed. Hemolysis present may falsly elevate Potassium Total and Direct Bili, Iron, AST, %Fe. Ordering Provider: MELVINA MOON Report Released Date/Time: Mar 27, 2023 03:03 PM Reporting Lab: [address] [address] Performing Lab: [address] [phone] [place], [place] [address] LIPID PANEL FASTING CHOLESTEROL IN LDL [MASS/VOLUM E] IN SERUM OR PLASMA BY CALCULATION 112 mg/dL 0 - 129 04/09 Specimen Type: SERUM Comment: Hemolysis present analysis cannot be performed. Hemolysis present may falsly elevate Potassium Total and Direct Bili, Iron, AST, %Fe. Ordering Provider: MELVINA MOON Report Released Date/Time: Mar 27, 2023 03:03 PM Reporting Lab: [address] [address] Performing Lab: [address] [address] [facility] L[facility] PANEL FASTING CHOLESTEROL .TOTAL/CHOL ESTEROL IN HDL [MASS RATIO] IN SERUM OR PLASMA 4.0 04/09 Specimen Type: SERUM Comment: Hemolysis present analysis cannot be performed. Hemolysis present may falsly elevate Potassium Total and Direct Bili, Iron, AST, %Fe. Ordering Provider: MELVINA MOON Report Released Date/Time: Mar 27, 2023 03:03 PM Reporting Lab: [address] [address] Performing Lab: [address] [address] [place] LIPID PANEL FASTING CHOLESTEROL IN HDL [MASS/VOLUM E] IN SERUM OR PLASMA 44 mg/dL 40 - 60 04/09 Specimen Type: SERUM Comment: Hemolysis present analysis cannot be performed. Hemolysis present may falsly elevate Potassium Total and Direct Bili, Iron, AST, %Fe. Ordering Provider: MELVINA MOON Report Released Date/Time: Mar 27, 2023 03:03 PM Reporting Lab: [address] [address] Performing Lab: [address] [address] [place] LIVER FUNCTION PROTEIN [MASS/VOLUM E] IN SERUM OR PLASMA 6.8 g/dL 6.0 - 8.3 04/09 Specimen Type: SERUM Comment: Hemolysis present analysis cannot be performed. Hemolysis present may falsly elevate Potassium Total and Direct Bili, Iron, AST, %Fe. Ordering Provider: MELVINA MOON Report Released Date/Time: Mar 27, 2023 03:03 PM Reporting Lab: [address] [address] Performing Lab: [address] [address] [place] LIVER FUNCTION ALBUMIN [MASS/VOLUM E] IN SERUM OR PLASMA 3.8 g/dL 3.5 - 5.0 04/09 Specimen Type: SERUM Comment: Hemolysis present analysis cannot be performed. Hemolysis present may falsly elevate Potassium Total and Direct Bili, Iron, AST, %Fe. Ordering Provider: MELVINA MOON Report Released Date/Time: Mar 27, 2023 03:03 PM Reporting Lab: [address] [address] Performing Lab: [address] [phone] [place], [place] [address] LIVER FUNCTION ALKALINE PHOSPHATASE [ENZYMATIC ACTIVITY/VO LUME] IN SERUM OR PLASMA 101 U/L 40 - 150 04/09 Specimen Type: SERUM Comment: Hemolysis present analysis cannot be performed. Hemolysis present may falsly elevate Potassium Total and Direct Bili, Iron, AST, %Fe. Ordering Provider: MELVINA MOON Report Released Date/Time: Mar 27, 2023 03:03 PM Reporting Lab: [address] [address] Performing Lab: [address] [address] [place] LIVER FUNCTION ASPARTATE AMINOTRANSF ERASE [ENZYMATIC ACTIVITY/VO LUME] IN SERUM OR PLASMA 20 U/L 5 - 34 04/09 Specimen Type: SERUM Comment: Hemolysis present analysis cannot be performed. Hemolysis present may falsly elevate Potassium Total and Direct Bili, Iron, AST, %Fe. Ordering Provider: MELVINA MOON Report Released Date/Time: Mar 27, 2023 03:03 PM Reporting Lab: [address] [address] Performing Lab: [address] [address] [place] LIVER FUNCTION ALANINE AMINOTRANSF ERASE [ENZYMATIC ACTIVITY/VO LUME] IN SERUM OR PLASMA 23 U/L 04/09 Specimen Type: SERUM Comment: Hemolysis present analysis cannot be performed. Hemolysis present may falsly elevate Potassium Total and Direct Bili, Iron, AST, %Fe. Ordering Provider: MELVINA MOON Report Released Date/Time: Mar 27, 2023 03:03 PM Reporting Lab: [address] [address] Performing Lab: [address] [address] [place] LIVER FUNCTION BILIRUBIN.T OTAL [MASS/VOLUM E] IN SERUM OR PLASMA commen tmg/dL 0.2 - 1.2 04/09 Specimen Type: SERUM Comment: Hemolysis present analysis cannot be performed. Hemolysis present may falsly elevate Potassium Total and Direct Bili, Iron, AST, %Fe. Ordering Provider: MELVINA MOON Report Released Date/Time: Mar 27, 2023 03:03 PM Reporting Lab: [facility] [address] [address] Performing Lab: [address] [address] [place] BASIC METABOLIC PANEL (fasting) UREA NITROGEN [MASS/VOLUM E] IN SERUM OR PLASMA 19 mg/dL 7 - 25 04/09 Specimen Type: SERUM Comment: Hemolysis present analysis cannot be performed. Hemolysis present may falsly elevate Potassium Total and Direct Bili, Iron, AST, %Fe. Ordering Provider: MELVINA MOON Report Released Date/Time: Mar 27, 2023 03:03 PM Reporting Lab: [address] [address] Performing Lab: [address] [address] [place] BASIC METABOLIC PANEL (fasting) GLUCOSE [MASS/VOLUM E] IN SERUM OR PLASMA 84 mg/dL 65 - 100 04/09 Specimen Type: SERUM Comment: Hemolysis present analysis cannot be performed. Hemolysis present may falsly elevate Potassium Total and Direct Bili, Iron, AST, %Fe. Ordering Provider: MELVINA MOON Report Released Date/Time: Mar 27, 2023 03:03 PM Reporting Lab: [address] [address] Performing Lab: [address] [address] [place] BASIC METABOLIC PANEL (fasting) SODIUM [MOLES/VOLU ME] IN SERUM OR PLASMA 142 mmol/L 135 - 145 04/09 Specimen Type: SERUM Comment: Hemolysis present analysis cannot be performed. Hemolysis present may falsly elevate Potassium Total and Direct Bili, Iron, AST, %Fe. Ordering Provider: MELVINA MOON Report Released Date/Time: Mar 27, 2023 03:03 PM Reporting Lab: [address] [address] Performing Lab: [address] [place] [address] [facility] BAS[facility] METABOLIC PANEL (fasting) POTASSIUM [MOLES/VOLU ME] IN SERUM OR PLASMA 4.0 mmol/L 3.5 - 5.0 04/09 Specimen Type: SERUM Comment: Hemolysis present analysis cannot be performed. Hemolysis present may falsly elevate Potassium Total and Direct Bili, Iron, AST, %Fe. Ordering Provider: MELVINA MOON Report Released Date/Time: Mar 27, 2023 03:03 PM Reporting Lab: [address] [address] Performing Lab: [address] [phone] [place], [place] [address] BASIC METABOLIC PANEL (fasting) CHLORIDE [MOLES/VOLU ME] IN SERUM OR PLASMA 111 mmol/L 100 - 110 04/09 H Specimen Type: SERUM Comment: Hemolysis present analysis cannot be performed. Hemolysis present may falsly elevate Potassium Total and Direct Bili, Iron, AST, %Fe. Ordering Provider: MELVINA MOON Report Released Date/Time: Mar 27, 2023 03:03 PM Reporting Lab: [address] [address] Performing Lab: [address] [address] [facility] BASIC METABOLIC PANEL (fasting) CARBON DIOXIDE, TOTAL [MOLES/VOLU ME] IN SERUM OR PLASMA 23 meq/L 20 - 30 04/09 Specimen Type: SERUM Comment: Hemolysis present analysis cannot be performed. Hemolysis present may falsly elevate Potassium Total and Direct Bili, Iron, AST, %Fe. Ordering Provider: MELVINA MOON Report Released Date/Time: Mar 27, 2023 03:03 PM Reporting Lab: [address] [address] Performing Lab: [address] [address] [facility] BASIC METABOLIC PANEL (fasting) CREATININE [MASS/VOLUM E] IN SERUM OR PLASMA 0.99 mg/dL 0.50 - 1.40 04/09 Specimen Type: SERUM Comment: Hemolysis present analysis cannot be performed. Hemolysis present may falsly elevate Potassium Total and Direct Bili, Iron, AST, %Fe. Ordering Provider: MELVINA MOON Report Released Date/Time: Mar 27, 2023 03:03 PM Reporting Lab: [address] [address] Performing Lab: [address] [address] [place] BASIC METABOLIC PANEL (fasting) GLOMERULAR FILTRATION RATE/1.73 SQ M.PREDICTED [VOLUME RATE/AREA] IN SERUM, PLASMA OR BLOOD BY CREATININE- BASED FORMULA (CKD-EPI 2020) 78 mL/min 60 04/09 Specimen Type: SERUM Comment: Hemolysis present analysis cannot be performed. Hemolysis present may falsly elevate Potassium Total and Direct Bili, Iron, AST, %Fe. Ordering Provider: MELVINA MOON Report Released Date/Time: Mar 27, 2023 03:03 PM Reporting Lab: [address] [address] Performing Lab: [address] [address] [place] CBC AND DIFF (AUTO) LEUKOCYTES [#/VOLUME] IN BLOOD BY AUTOMATED COUNT 7.15 10*3/u L 4.50 - 11.00 04/09 Specimen Type: BLOOD No comment entered. Ordering Provider: MELVINA MOON Report Released Date/Time: Mar 27, 2023 03:03 PM Reporting Lab: [address] [address] Performing Lab: [address] [address] [place] CBC AND DIFF (AUTO) ERYTHROCYTE S [#/VOLUME] IN BLOOD BY AUTOMATED COUNT 4.89 10*6/u L 4.23 - 5.66 04/09 Specimen Type: BLOOD No comment entered. Ordering Provider: MELVINA MOON Report Released Date/Time: Mar 27, 2023 03:03 PM Reporting Lab: [facility] [address] [address] Performing Lab: [facility] [address] [address] [place] CBC AND DIFF (AUTO) HEMOGLOBIN [MASS/VOLUM E] IN BLOOD 15.9 g/dL 12.8 - 17 04/09 Specimen Type: BLOOD No comment entered. Ordering Provider: MELVINA MOON Report Released Date/Time: Mar 27, 2023 03:03 PM Reporting Lab: [facility] [address] [address] Performing Lab: [facility] [address] [address] [place] CBC AND DIFF (AUTO) HEMATOCRIT [VOLUME FRACTION] OF BLOOD BY AUTOMATED COUNT 47.0 39.2 - 50.4 04/09 Specimen Type: BLOOD No comment entered. Ordering Provider: MELVINA MOON Report Released Date/Time: Mar 27, 2023 03:03 PM Reporting Lab: [facility] [address] [address] Performing Lab: [facility] [address] [place] CBC AND DIFF (AUTO) MCV [ENTITIC VOLUME] BY AUTOMATED COUNT 96.1 fL 82 - 99 04/09 Specimen Type: BLOOD No comment entered. Ordering Provider: MELVINA MOON Report Released Date/Time: Mar 27, 2023 03:03 PM Reporting Lab: [facility] [address] Performing Lab: [facility] [address] [place] CBC AND DIFF (AUTO) MCHC [MASS/VOLUM E] BY AUTOMATED COUNT 33.8 g/dL 30.8 - 35.1 04/09 Specimen Type: BLOOD No comment entered. Ordering Provider: MELVINA MOON Report Released Date/Time: Mar 27, 2023 03:03 PM Reporting Lab: [facility] [address] [address] Performing Lab: [facility] [place] [address] [place] CBC AND DIFF (AUTO) PLATELETS [#/VOLUME] IN BLOOD BY AUTOMATED COUNT 207 10*3/u L 140 - 360 04/09 Specimen Type: BLOOD No comment entered. Ordering Provider: MELVINA MOON Report Released Date/Time: Mar 27, 2023 03:03 PM Reporting Lab: [address] [address] Performing Lab: [address] [address] [place] CBC AND DIFF (AUTO) ERYTHROCYTE DISTRIBUTIO N WIDTH [RATIO] BY AUTOMATED COUNT 13.2 12.0 - 16.0 04/09 Specimen Type: BLOOD No comment entered. Ordering Provider: MELVINA MOON Report Released Date/Time: Mar 27, 2023 03:03 PM Reporting Lab: [address] [address] Performing Lab: [facility] [address] [place] CBC AND DIFF (AUTO) MONOCYTES [#/VOLUME] IN BLOOD BY AUTOMATED COUNT 0.57 10*3/u L 0.30 - 1.10 04/09 Specimen Type: BLOOD No comment entered. Ordering Provider: MELVINA MOON Report Released Date/Time: Mar 27, 2023 03:03 PM Reporting Lab: [facility] [address] [address] Performing Lab: [facility] [address] [address] [place] CBC AND DIFF (AUTO) MCH [ENTITIC MASS] BY AUTOMATED COUNT 32.5 pg 26.2 - 32.6 04/09 Specimen Type: BLOOD No comment entered. Ordering Provider: MELVINA MOON Report Released Date/Time: Mar 27, 2023 03:03 PM Reporting Lab: [facility] [address] [address] Performing Lab: [facility] [address] [address] [place] CBC AND DIFF (AUTO) NEUTROPHILS /100 LEUKOCYTES IN BLOOD BY AUTOMATED COUNT 63.8 43.7 - 75.8 04/09 Specimen Type: BLOOD No comment entered. Ordering Provider: MELVINA MOON Report Released Date/Time: Mar 27, 2023 03:03 PM Reporting Lab: [facility] [address] [address] Performing Lab: [facility] [address] [address] [place] CBC AND DIFF (AUTO) LYMPHOCYTES /100 LEUKOCYTES IN BLOOD BY AUTOMATED COUNT 19.3 14.0 - 42.3 04/09 Specimen Type: BLOOD No comment entered. Ordering Provider: MELVINA MOON Report Released Date/Time: Mar 27, 2023 03:03 PM Reporting Lab: [facility] [address] [address] Performing Lab: [facility] [address] [address] [place] CBC AND DIFF (AUTO) MONOCYTES/1 00 LEUKOCYTES IN BLOOD BY AUTOMATED COUNT 8.0 5.1 - 13.7 04/09 Specimen Type: BLOOD No comment entered. Ordering Provider: MELVINA MOON Report Released Date/Time: Mar 27, 2023 03:03 PM Reporting Lab: [facility] [address] [address] Performing Lab: [facility] [address] [place] CBC AND DIFF (AUTO) EOSINOPHILS /100 LEUKOCYTES IN BLOOD BY AUTOMATED COUNT 7.8 0.4 - 6.8 04/09 H Specimen Type: BLOOD No comment entered. Ordering Provider: MELVINA MOON Report Released Date/Time: Mar 27, 2023 03:03 PM Reporting Lab: [facility] [address] [address] Performing Lab: [facility] [address] [address] [place] CBC AND DIFF (AUTO) BASOPHILS/1 00 LEUKOCYTES IN BLOOD BY AUTOMATED COUNT 0.8 0.1 - 2.0 04/09 Specimen Type: BLOOD No comment entered. Ordering Provider: MELVINA MOON Report Released Date/Time: Mar 27, 2023 03:03 PM Reporting Lab: [facility] [address] [address] Performing Lab: [facility] [address] [place] CBC AND DIFF (AUTO) NEUTROPHILS [#/VOLUME] IN BLOOD BY AUTOMATED COUNT 4.56 10*3/u L 2.20 - 7.60 04/09 Specimen Type: BLOOD No comment entered. Ordering Provider: MELVINA MOON Report Released Date/Time: Mar 27, 2023 03:03 PM Reporting Lab: [facility] [address] [address] Performing Lab: [facility] [address] [address] [place] CBC AND DIFF (AUTO) LYMPHOCYTES [#/VOLUME] IN BLOOD BY AUTOMATED COUNT 1.38 10*3/u L 1.00 - 3.20 04/09 Specimen Type: BLOOD No comment entered. Ordering Provider: MELVINA MOON Report Released Date/Time: Mar 27, 2023 03:03 PM Reporting Lab[facility] [address] [address] [facility]forming [facility]: [facility] [address] [address] [place] CBC AND DIFF (AUTO) EOSINOPHILS [#/VOLUME] IN BLOOD BY AUTOMATED COUNT 0.56 10*3/u L 0.03 - 0.44 04/09 H Specimen Type: BLOOD No comment entered. Ordering Provider: MELVINA MOON Report Released Date/Time: Mar 27, 2023 03:03 PM Reporting Lab[facility] [address] [address] Performing [facility]: [facility] [address] [address] [place] CBC AND DIFF (AUTO) BASOPHILS [#/VOLUME] IN BLOOD BY AUTOMATED COUNT 0.06 10*3/u L 0.01 - 0.13 04/09 Specimen Type: BLOOD No comment entered. Ordering Provider: MELVINA MOON Report Released Date/Time: Mar 27, 2023 03:03 PM Reporting Lab[facility] [address] [address] Performing [facility]: [facility] [address] [address] [place] CBC AND DIFF (AUTO) IMMATURE GRANULOCYTE S/100 LEUKOCYTES IN BLOOD BY AUTOMATED COUNT 0.3 0.0 - 0.7 04/09 Specimen Type: BLOOD No comment entered. Ordering Provider: MELVINA MOON Report Released Date/Time: Mar 27, 2023 03:03 PM Reporting Lab: [facility] [address] [address] Performing Lab: [facility] [address] [address] [place] CBC AND DIFF (AUTO) IMMATURE GRANULOCYTE S [#/VOLUME] IN BLOOD 0.02 10*3/u L 0.00 - 0.06 04/09 Specimen Type: BLOOD No comment entered. Ordering Provider: MELVINA MOON Report Released Date/Time: Mar 27, 2023 03:03 PM Reporting Lab: [facility] [address] [address] Performing Lab: [facility] [place] [facility] [address] [address] [facility] Vital Signs Combined list of inpatient and outpatient Vital Signs from Department of Defense and Veterans Affairs, ranging from 12 months to all on record, depending upon the facility. Vital Sign Value Date Comments Source SYSTOLIC BLOOD PRESSURE 143 02/07/2024 13:44:19 [place] DIASTOLIC BLOOD PRESSURE 81 02/07/2024 13:44:19 [place] PULSE OXIMETRY 95 02/07/2024 13:44:[facility] 213.8 02/07/2024 13:44:19 [place] BMI 31 kg/m2 02/07/2024 [facility]:44[facility] TEMPERATURE 98.3 02/07/2024 [facility]:44[facility] 86 02/07/2024 13:44:19 [place] Encounters Combined list of: 1) Encounters from Department of Veterans Affairs facilities going backup to the last 18 months, not all [place] inpatient encounters are included; 2) Encounters from the Department of [facility] facilities going backup to 280 months. Location Location Details Encounter Type Encounter Number Reason For Visit Attending Provider ADM Date DC Date Status Disposition Source [facility] Outpatient [facility]counter [id number] 02/26 [facility] [id number] 03/02 [facility] Encounter [id number] 03/29 [facility] [place] [facility] OFFICE O/P EST MOD 30 MIN [id number] Diagnos is: ICD-10- CM C43.9 Maligna nt melanom a of skin, unspeci fied JORGE NOE,HUYEN LEWISBREA M 04/09 [facility] En[facility] [id number] 04/09 [facility] En[facility] [id number] 05/12 [facility] [id number] 06/06 [facility] En[facility] [id number] 06/21 [facility] [id number] 07/01 [facility] [id number] 07/24 [facility] [id number] 08/22 [facility] En[facility] [id number] 11/26 [facility] CPTR OPHTH DX IMG POST SEGMT [id number] Diagnos is: ICD-10- CM H40.013 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, low risk, bilater al JOCELIN BAKER LALITHA E 11/27 [facility] COMPRE [place]PH EXAM EST PT 1/ [id number] 1. Diagnos is: ICD-10- CM H40.013 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, low risk, bilater al SAMUEL,JOCELIN LALITHA E 11/27 [facility] En[facility] [id number] [facility] [id number] 1.01/02 [facility] En[facility] [id number] [facility] Encounter [id number] 1.01/17 [facility] En[facility] [id number] 1.02/06 [facility] [place] [facility] OFFICE O/P EST MOD 30 MIN [id number] 1BY. 02 Diagnos is: ICD-10- CM Z00.8 Encount er for other general examina tiHUYEN Roa 02/06 [place] [facility] [facility] En[facility] [id number] 1.03/15 [facility] [id number] 03/18 [facility] En[facility] [id number] 04/09 [facility] [id number] 04/09 [facility] En[facility] [id number] 04/11 [facility] INTRM OPH EXAM EST PATIENT [id number] Diagnos is: ICD-10- CM H40.013 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, low risk, bilater al SAMUEL,AN LALITHA E 04/22 [facility] CPTRZD OPH DX IMG PST SGM ON [id number] Diagnos is: ICD-10- CM H40.013 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, low risk, bilater al SAMUEL,JOCELIN LALITHA E 04/22 [facility] FIT SPECTACLES MULTIFOCAL [id number] Diagnos is: ICD-10- CM Z46.0 Encount er for fit/adj st of spectac les and contact lenses JOCELIN BAKER LALITHA E 04/23 [facility] INTRM OPH EXAM EST PATIENT [id number] Diagnos is: ICD-10- CM 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, left eye JOCELIN BAKER LALITHA E 05/26 [facility] En[facility] [id number] 05/27 [facility] EXTENDED VISUAL FIELD XM [id number] Diagnos is: ICD-10- CM H40.013 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, low risk, bilater JOCELIN Grover 05/29 [facility] Outpatient Encounter [id number] 05/29 [facility] Outpatient Encounter [id number] 06/29 [facility] INTRM OPH EXAM EST PATIENT [id number] Diagnos is: ICD-10- CM H40.013 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, low risk, bilater JOCELIN Grover 07/07 [facility] [place] [facility] Social History Combined list of available smoking, tobacco, and other social history from Department of Defense and Veterans Affairs facilities. 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 04/29/2018 [place] History of tobacco use GA-TOBACCO FORMER USER 03/22/2018 [place] History of tobacco use QUIT TOBACCO USE IN PAST YEAR 04/09/2017 reports quitting 4 months ago [place] History of tobacco use CURRENT SMOKER 03/21/2016 [place] History of tobacco use CURRENT SMOKER 03/11/2015 6 cigarettes/d [place] History of tobacco use CURRENT SMOKER 03/19/2014 5-6 cigarettes per day [place] History of tobacco use V1-PT THINKING ABOUT QUIT TOBACCO USE 06/02/2013 [place] History of tobacco use CURRENT SMOKER 11/29/2012 Pt stated that he smokes about 6 cigaretts a day [place] History of tobacco use V1-TOBACCO CESS MEDS NOT PRESCRIBED 04/30/2012 PCP WILL ORDER THIS [place] History of tobacco use CURRENT SMOKER 06/01/2011 Pt. states hi smokes 5-6 cigerettes a day. [place] History of tobacco use CURRENT SMOKER 04/27/2010 smoker for 50 yrs...smokes 6-8 cigarettes per day [place] History of tobacco use V1-PT THINKING ABOUT QUIT TOBACCO USE 09/13/2009 [place] History of tobacco use CURRENT SMOKER 03/09/2009 10 cigarettes per day [place] History of tobacco use CURRENT SMOKER 02/04/2008 Patient states he smokes a pack of ciggs per day. [place] History of tobacco use V1-PT READY TO QUIT TOBACCO USE 03/14/2007 [place] History of tobacco use CURRENT SMOKER 06/19/2006 counselled [place] History of tobacco use QUIT TOBACCO USE IN PAST YEAR 06/13/2005 continue bupropion [place] History of tobacco use CURRENT SMOKER 11/17/2004 1 pack a day [place] History of tobacco use CURRENT SMOKER 06/23/2003 1ppd x 30yrs [place] Plan of Care List of future care activities from Department of Veterans Affairs facilities. Additional future care activities may be listed in the Assessment and Plan section. Date/Time Care Activity Care Activity Detail Facili ty 10/09/2024 AMBULATORY - MEDICINE AM[facility]ULATORY - [facility] [place]
--- OUTSIDE RECORDS SUMMARY | 2024-07-09 08:11 | XMS_ITS ---
Author Organization [facility] Address [address] [place] [address] Care Team Providers Care Pitching Coach Name Role Phone Gabriel MONTGOMERY, [place] Primary Care Provider Raquel Ruelas Unavailable [phone] Allergies No Known Allergies REASON FOR VISIT Painful nail(s) aggravated by shoes causing difficulty standing/walking Medications Medication SIG (Take, Route, Frequency, Duration) Notes Start Date End Date Status Atorvastatin Calcium 40 MG 1 tablet Orally Once a day for 30 day(s) Active Multivitamin Active Apixaban 5 MG as directed Orally Not-Taking Ciclopirox Olamine 0.77 % 1 application Externally Twice a day for 30 days Active PreserVision AREDS 2 Active buPROPion HCl ER (Smoking Det) 150 MG 1 tablet in the morning Orally Once a day for 30 day(s) Active Lisinopril 5 MG 1 tablet Orally Once a day for 30 day(s) Active Social History Tobacco Use: Social History [...] Signs Blood pressure systolic 120 mm Hg 04/23/19 25 Blood pressure diastolic 80 mm Hg 025 Height 5 ft 9 in in 04/23/2024 Weight 200 lbs 04/23/2024 BMI 29.53 kg/m2 04/23/2024 Encounters Encounter Location Date Provider Diagnosis [facility] [address] [address] 04/23/2024 Raquel Smith Onychomycosis B35.1 ; Pain in right toe(s) M79.674 and Pain in left toe(s) M79.675 Assessments Encounter Date Diagnosis (ICD Code) Assessment Notes Treatment Notes Treatment Clinical Notes Section Notes 04/23/2024 Onychomycosis (ICD-10 - B35.1) 04/23/2024 Pain in right toe(s) (ICD-10 - M79.674) 04/23/2024 Pain in left toe(s) (ICD-10 - M79.675) Plan Of Treatment Next Appt Details Follow Up: 2 Months, Reason: Provider Name:Raquel castillo, 09/19/2024 01:45:00 PM, [address] [place] [address], [id number], Procedure Notes * Category Sub-Category Detail Notes [...] use of a nail nipper and/or dremel-type drill grinder, to a more viable healthy nail [...] to maintain effectiveness in symptomatic relief - 29376 Progress Notes * Robert MCINTYRE JDOB:1945 (78 yo M)Acc No.[id number]:04/23/2024 Progress Note Patient:?Robert MCINTYRE Provider:?Raquel Smith DPM :1945???Age:78 Y???Sex:Male Gabriel e:04/23/2024 Address:[address] [place], [place] [id number] Pcp:Zachery Rios MD Subjective: * Chief Complaints: [...] use of a nail nipper and/or dremel-type drill grinder, to a more viable healthy nail [...] to maintain effectiveness in symptomatic relief - 37206.? * Procedure Codes:?12588 JEANNEI DE NAIL, 6 OR MORE * Follow Up:?2 Months * Images: * Sign off status: Completed true * Provider:?Raquel Smith DPM Date:? Generated for Salvador guajardo/Flori/Jamesitting on:?07/09/2024 08:10 AM EDT History and Physical [...]
[2024-07-09 08:33] LABS: MANUAL DIFF FLAG NO
[2024-07-09 09:25] LABS: Basophils Absolute Auto 0.1 X10*3/uL (0.0-0.2); Basophils Percent Auto 0.8 % (0-2); Eosinophils Absolute Auto 0.9 X10*3/uL (0.0-0.4); Eosinophils Percent Auto 14.6 % (0-4); Hematocrit 44.3 % (42.0-52.0); Hemoglobin 15.3 g/dl (14.0-18.0); Imm Gran Abs Auto 0.02 X10*3/uL (0.00-0.03); Imm Gran Pct Auto 0.3 % (0.0-0.4); Lymphocytes Absolute Auto 1.5 X10*3/uL (1.2-4.9); Lymphocytes Percent Auto 23.9 % (20-40); Mean Corpuscular HGB Conc 34.5 g/dl (31.0-36.0); Mean Corpuscular Hemoglobin 32.5 pg (27.0-33.0); Mean Corpuscular Volume 94.1 fL (80.0-98.0); Monocytes Absolute Auto 0.6 X10*3/uL (0.1-1.2); Monocytes Percent Auto 8.5 % (2-11); Neutrophils Absolute Auto 3.4 x10*3/uL (2.0-8.3); Neutrophils Percent Auto 51.9 % (45-73); Platelet Count 167 X10*3/uL (160-400); Red Blood Count 4.71 X10*6/uL (4.60-5.80); Red Cell Distribution Width 13.1 % (11.0-16.0); White Blood Count 6.5 X10*3/uL (4.8-10.8)
[2024-07-09 09:29] LABS: Estimated Average Glucose 117 mg/dL; Hemoglobin A1c % 5.7 % (<6.0); Total Hemoglobin (HGBA1C) 4054.4402 umol/L
[2024-07-09 09:31] LABS: Appearance Urine Clear; Color Urine Yellow; Glucose Urine UA Negative (Negative); Leukocyte Esterase Urine Negative (Negative); Nitrite Urine Negative (Negative); PH 6.5 (5.0-9.0); UMIC TRIGGER UACC YES; Urine Blood Negative (Negative); Urine Ketones Negative (Negative); Urine Protein 30 (1+) mg/dL (Neg-Trace)
[2024-07-09 09:50] LABS: Bacteria Urine None Seen (None Seen); Hyaline Casts Urine 0-2 /LPF (0-2); RBC Urine 0-2 /HPF (0-2); Squamous Epithelial Cell Urine 0-2 /HPF (0-2); WBC Urine 0-5 /HPF (0-5)
[2024-07-09 10:44] LABS: Alanine Aminotransferase 27 U/L (0-40); Albumin Level 3.9 g/dL (3.5-5.0); Alkaline Phosphatase 81 U/L (39-117); Anion Gap 10 (12-20); Aspartate Amino Transferase 27 U/L (5-37); Bilirubin Total 0.3 mg/dL (0.0-1.0); Blood Urea Nitrogen 16 mg/dL (9-16); Calcium 9.4 mg/dL (8.4-10.2); Carbon Dioxide 23 mmol/L (22-29); Chloride 112 mmol/L (96-108); Cholesterol 134 mg/dL (<200); Estimated Glomerular Filt Rate > 60; Glucose Fasting 94 mg/dL (60-99); HDL Cholesterol 40 mg/dL (>40); LDL Cholesterol Calculated 78 mg/dL (<100); Sodium 141 mmol/L (135-145); TSH reflex Free T4 1.56 uIU/mL (0.32-4.0); Total Protein 6.8 g/dL (6.5-8.0); Triglycerides 84 mg/dL (<150)
== END 2024-07-09 08:05 | disposition home or self-care (01) ==
LOC: HO.LAB 08:04
PROVIDERS: PCP Internal Medicine; Visit Provider Internal Medicine
DX: D64.9 Anemia, unspecified (principal); R73.01 Impaired fasting glucose; E78.00 Pure hypercholesterolemia, unspecified
CPT/HCPCS: 36415; 80053; 80061; 81001; 81003; 83036; 84443; 85025

== ENCOUNTER 2024-07-11 13:10 | Outpatient (AMB) | payer MEDICARE, SELFPAY ==
--- NOTE | 2024-07-11 13:22 | MHC.PC.OV ---
Vital Signs 07/11/24 13:23 Height 5 ft 9 in Weight 216 lb 2 oz BMI 31.9 BP 130/78 Blood Pressure Location Lt brachial Position Sitting Pulse 66 Pulse Source Pulse Oximeter Temp 97.1 F Temp Source Temporal Artery Scan Pulse Oximetry (%) 97 Oxygen Delivery Method Room Air Intake Visit Reasons: [facility] f/u Associate School Psychologist Required: No Accompanied by: Self / Same As Patient Allergies naproxen [From Naprosyn] Allergy (Verified 07/11/24 13:59) Unknown Medication List - Last Reconciled 07/11/24 by Zachery Rios MD aspirin 81 mg PO DAILY atorvastatin 80 mg PO .1/2 TABLET DAILY baclofen 20 mg PO BID PRN MDD 40 bupropion HCl (smoking deter) 150 mg PO DAILY lisinopril 5 mg PO DAILY multivitamin 1 tab PO DAILY polyethylene glycol 3350 (Gavilax) 17 grams PO DAILY 30 days Tobacco use date assessed: 07/11/24 Fall risk assessment: No Falls in past year Last assessed Fall Risk: 07/11/24 Dental Screening Dental Screen Date: 07/11/24 Did you have a dental visit in the last 12 months?: No Did you have a dental problem in the last 6 months where you did not have access to dental care?: No Was dental information given to patient?: [facility] Details Patient comes in today for his follow up visit States that he feels okay He denies any headaches or dizziness Denies any chest pains, no increased SOB No nausea/vomiting, no abdominal pain No change in bowel habits noted He had his follow up labs done a couple of days ago - to discuss his results [facility] Medical History (Updated 07/11/24 @ 14:21 by Zachery Rios MD) Obesity (BMI 30-39.9) Smoker Urinary frequency 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 History of urinary retention Constipation Small bowel tumor SBO (small bowel obstruction) COVID-19 vaccine administered History of diverticulosis Overweight (BMI 25.0-29.9) Anxiety Skin cancer, 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 Lumbar strain Lumbar degenerative disc disease Impaired fasting glucose Benign essential hypertension Pure hypercholesterolemia Surgical History Hx of tooth extraction Status post small bowel resection (~09/14/20) H/O colonoscopy History of melanoma excision History of eye surgery Family History Father Cancer Mother Cancer Brother Colon cancer Social History Household Members: None Housing: House Are you a primary manager primary care to a significant other at home: No Do you presently have visiting nurse or other home services: No Alcohol intake: former Comment: aware of trip hazard Patient Tobacco Use Status: Current everyday Tobacco user Tobacco use type: Cigarette Cigarettes Per Day: 4 Years Smoked: 60 e-Cigarette/Vaping Use: Never Used Second Hand Smoke Exposure: Yes Advance Directives Date on File: 08/17/20 service: Yes Current occupational status: retired Cognitive needs: No Hearing needs: No Vision needs: No Questionnaire PHQ-9 Over the last 2 weeks, how often have you been bothered by any of the following problems? 1. Little interest or pleasure in doing things: not at all 2. Feeling down, depressed, or hopeless: not at all 3. Trouble falling or staying asleep, or sleeping too much: not at all 4. Feeling tired or having little energy: not at all 5. Poor appetite or overeating: not at all 6. Feeling bad about yourself - or that you are a failure or have let yourself or your family down: not at all 7. Trouble concentrating on things, such as reading the newspaper or watching television: not at all 8. Moving or speaking so slowly that other people could have noticed. Or the opposite - being so fidgety or restless that you have been moving around a lot more than usual: not at all 9. Thoughts that you would be better off or of hurting yourself in some way: not at all Total score: 0 Depression Screening Interpretation: Negative Depression Screening Done: Yes 38345 - PHQ-9 Billing: Yes Source: Developed by Drs. Kentrell Lua, Kathryn Blackwell, Hesham Thomas and colleagues, with an educational adair from [employer]. Thrive Questionnaire Date Thrive assessed: 07/11/24 I am a: Patient What is your living situation today?: I have a steady place to live Within the past 12 months, did the food you bought not last and you didn't have the money to get more?: Never true Within the past 12 months, did you worry whether your food would run out before you got money to buy more?: Never true Do you have trouble paying for medicines?: No Do you have trouble getting transportation to medical appointments?: No Do you have trouble paying your heating and electricity bill?: No Do you have trouble taking care of your child, family member or friend?: No Do you have trouble with day-to-day activities such as bathing, preparing meals, shopping, managing finances, etc.?: No Are you currently unemployed and looking for a job?: No Are you interested in more education?: No Please select the resources that you would like help with: None Currently or been in a relationship where the following occur: No concerns reported THRIVE Score: 0 AUDIT C Alcohol Use Questionnaire (AUDIT-C) 1. How often do you have a drink containing alcohol?: Monthly or less 2. How many drinks containing alcohol do you have on a typical day when you are drinking?: 1 or 2 3. How often do you have six or more drinks on one occasion?: Never Total Score: 1 Score Reviewed/Action Taken: Yes ADALI-7 AMB Questionnaire ADALI-7 Date ADALI - 7 assessed: 07/11/24 Feeling nervous, anxious, or on edge: 0 = Not at all Not being able to stop or control worryin = Not at all Worrying too much about different things: 0 = Not at all Trouble relaxin = Not at all Being so restless that it is hard to sit still: 0 = Not at all Becoming easily annoyed or irritable: 0 = Not at all Feeling afraid as if something awful might happen: 0 = Not at all Total ADALI-7 score (0-4 normal; 5-9 mild; 10-14 moderate; 15-21 severe): 0 Source: Developed by Drs. Kentrell Lua, Kathryn Blackwell, Hesham Thomas and colleagues, with an educational adair from [employer]. ADALI-7 Assessment Billing ADALI-7 Assessment Tool: ADALI-7 Assessment 79258 Review of Systems Const Denies chills, Denies fatigue, Denies fever(s) and Denies headache(s) ENT Denies dysphagia, Denies dizziness, Denies otalgia, Denies headache(s), Denies neck pain, Denies odynophagia and Denies sore throat Card Denies chest pain, Denies palpitations and Reports dyspnea on exertion (mild) Resp Denies chest congestion, Denies cough and Reports dyspnea on exertion (mild) GI Denies abdominal pain, Denies constipation, Denies dysphagia, Denies heartburn, Denies diarrhea, Denies nausea, Denies odynophagia and Denies vomiting Denies difficulty urinating, Denies dysuria, Reports nocturia and Reports urinary frequency Musc Denies back pain, Denies arthralgias and Denies neck pain Skin/Breast Denies rash Neuro Denies dizziness and Denies headache(s) Psych Denies anxiety Endo Denies fatigue and Denies palpitations Physical exam (Primary Care) Vital Signs: Last Vital Signs Temp 97.1 F 07/11/24 13:23 Pulse 66 07/11/24 13:23 BP 130/78 07/11/24 13:23 Pulse Ox 97 07/11/24 13:23 Oxygen Delivery Method Room Air 07/11/24 13:23 BMI result Body Mass Index 31.9 Tobacco/Smoking Status: Tobacco use Status Tobacco use date assessed 07/11/24 07/11/24 13:28 Patient Tobacco Use Status Current everyday Tobacco 07/11/24 13:22 Tobacco use type Cigarette 07/11/24 13:22 e-Cigarette/Vaping Use Never Used 07/11/24 13:22 PHQ-9: PHQ-9 Score PHQ-9: Total score 0 07/11/24 13:28 Depression Screening Interpretation: Negative Thrive Assessment: Date of Thrive Assessment Date Thrive assessed 07/11/24 07/11/24 13:28 Currently or been in a relationship where the following occur: No concerns reported Const General: no acute distress and alert HENMT Ears: TM's normal bilaterally and EAC's normal Throat: Yes posterior oropharynx normal and Yes tonsils normal (no TP congestion noted) Neck Neck: Yes supple and No lymphadenopathy Thyroid: Thyroid normal Resp Auscultation: clear to auscultation bilaterally, no rales and no wheezes Cardio Rate: regular rate Rhythm: regular rhythm Heart sounds: no murmurs GI Palpation (GI): Soft to palpation and nontender Auscultation: normal bowel sounds General: Yes no CVA tenderness Back/Spine/Pelvis Back: no CVA tenderness Thoracic/Lumbar Spine: lumbar spinal tenderness (mild) Skin Rashes: no rashes Extrem General: Yes no clubbing, cyanosis or edema Results Reviewed Results Reviewed: Laboratory Tests 07/09/24 07/09/24 08:29 08:30 WBC 6.5 Hgb 15.3 Hct 44.3 Plt Count 167 Eos % (Auto) 14.6 H Sodium 141 Potassium 4.0 Creatinine 0.94 Estimated GFR > 60 Fasting Glucose 94 Hemoglobin A1c % 5.7 Calcium 9.4 AST 27 ALT 27 Triglycerides 84 Cholesterol 134 LDL Cholesterol, Calc 78 HDL Cholesterol 40 L TSH 1.56 Ur Specific [place] 1.020 Urine Protein 30 (1+) H Urine Glucose (UA) Negative Coding Level of Care Code Est Pt Level 4 (55151) Diagnoses Benign essential hypertension I10 Pure hypercholesterolemia E78.00 Impaired fasting glucose R73.01 Exertional dyspnea R06.09 Mild ascending aorta dilatation I77.810 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 Eosinophilia, unspecified type D72.10 Eosinophilia type: unspecified eosinophilia 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 Laterality: right Recurrent skin melanoma C43.9 Anxiety F41.9 Smoker F17.200 Obesity (BMI 30-39.9) E66.9 Additional Codes ADALI-7 Assessment Billing - ADALI-7 Assessment Tool: ADALI-7 Assessment 92292 ([id number]) PHQ-9 - 11690 - PHQ-9 Billing: Yes ([id number]) Assessment & Plan Assessment & Plan (1) Benign essential hypertension: Code(s): I10 - Essential (primary) hypertension Category: Medical Plan: Reinforced low sodium diet - goal is systolic BP of at least 140 mm or less Continue Lisinopril 5 mg QD He is reminded to continue monitoring his blood pressure regularly (2) Pure hypercholesterolemia: Code(s): E78.00 - Pure hypercholesterolemia, unspecified Category: Medical Plan: Results of his labs done a couple of days ago reviewed and discussed with patient Reinforced low cholesterol diet Continue Atorvastatin 80 mg QD Will have patient recheck his labs and fasting lipids in 4 months for follow up (3) Impaired fasting glucose: Code(s): R73.01 - Impaired fasting glucose Category: Medical Plan: His HgbA1c was normal at 5.7% on his recent labs; was previously at 5.4% a few months ago Reinforced low calorie diet/exercise as tolerated (4) Exertional dyspnea: Code(s): R06.09 - Other forms of dyspnea Category: Medical Plan: This is most likely due to physical decompensation and partly related to his age He was sent for echocardiogram for further evaluation and echocardiogram in January 2024 revealed (+) normal left ventricular size and systolic function, with the visually estimated ejection fraction between 55-60%. 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: Comment: In remission Code(s): C83.39 - Diffuse large B-cell lymphoma, extranodal and solid organ sites Category: Medical Plan: S/P laparoscopic small bowel resection on 09/14/20 - pathology reportedly came out as?non-Hodgkin's B-cell lymphoma He completed chemotherapy with R-CHOP and had Port-a-cath eventually removed (Tx from 11/02/2020 to 02/15/2021) He was recently seen by Oncology for follow-up and patient currently remains in remission Follow up with oncology as scheduled for continuing surveillance (7) Eosinophilia: Code(s): D72.10 - Eosinophilia, unspecified Category: Medical Qualifiers: Eosinophilia type: unspecified eosinophilia Qualified Code(s): D72.10 - Eosinophilia, unspecified Plan: Patient has been presenting with significant eosinophilia on her CBC over the past several months He denies any acute or increased allergy symptoms or rash/itching lately Due to his Hx of lymphoma, will refer him to oncology/hematology for further evaluation and management (8) Internal jugular vein thrombosis: Code(s): I82.C19 - Acute embolism and thrombosis of unspecified internal jugular vein Category: Medical Qualifiers: Laterality: right Qualified Code(s): I82.C11 - Acute embolism and thrombosis of right internal jugular vein Plan: Venous doppler done following tunneled port removal revealed the persistence of a thrombus in the right IJ Right upper extremity US last done in December 2021 revealed NO DVT He has been taken off Apixaban 5 mg BID and currently remains only on low dose Aspirin 81 mg QD (9) Recurrent skin melanoma: Code(s): C43.9 - Malignant melanoma of skin, unspecified Category: Medical Plan: S/P excisional surgery on the nose with [facility] Follow up with [facility] as scheduled for continuing surveillance (10) Anxiety: Code(s): F41.9 - Anxiety disorder, unspecified Category: Medical Plan: Continue Lorazepam 0.5 mg QD PRN and Bupropion 150 mg QD (11) Smoker: Code(s): F17.200 - Nicotine dependence, unspecified, uncomplicated Category: Social Hx Plan: Patient is counseled again on complete smoking cessation (12) Obesity (BMI 30-39.9): Code(s): E66.9 - Obesity, unspecified Category: Medical Plan: Reinforced diet/exercise as tolerated/lose weight - he has gained some weight since his last visit Plan Follow up in 4 months Orders: Orders Complete Blood Count Auto Diff 4 Months D64.9 - Anemia, unspecified Hemoglobin A1c 4 Months R73.01 - Impaired fasting glucose Comprehensive [place]. Panel Fast 4 Months E78.00 - Pure hypercholesterolemia, unspecified Lipid Panel 4 Months E78.00 - Pure hypercholesterolemia, unspecified TSH reflex Free T4 4 Months E78.00 - Pure hypercholesterolemia, unspecified UA CC w/rflx Micro + Cult 4 Months R30.0 - Dysuria Vitamin D 25-OH Total 4 Months E55.9 - Vitamin D deficiency, unspecified Referrals Hematology & Oncology Referral C43.9 - Malignant melanoma of skin, unspecified, C85.99 - Non-Hodgkin lymphoma, unspecified, extranodal and solid organ sites, D72.10 - Eosinophilia, unspecified
[2024-07-11 13:23] VITALS: BP 130/78; PULSE 66; TEMP 36.2; O2SAT 97; BMI 31.9
--- OUTSIDE RECORDS SUMMARY | 2024-07-11 13:38 | XMS_ITS | Encounter Summary ---
Author Name [facility] [facility] [place] Address [address] [place] [id number] Care Team Providers Care Hand Splitter Name Role Phone NATALIE MASON Primary Care [...] PART A Jul 02, 2011 PART A [id number] [phone] ADRIANA JOSÉ PATIENT MEDICARE (WNR) MEDICARE (M) PART B Jul 02, 2011 PART B [id number] ADRIANA JOSÉ PATIENT MEDICARE (WNR) MEDICARE (M) PART A Jul 02, 2011 PART A [id number] [phone] ADRIANA JOSÉ PATIENT MEDICARE (WNR) MEDICARE (M) PART B Jul 02, 2011 PART B [id number] ADRIANA JOSÉ PATIENT MEDICARE (WNR) MEDICARE (M) PART A Jul 02, 2011 PART A [id number] [phone] ADRIANA JOSÉ PATIENT MEDICARE (WNR) MEDICARE (M) PART B Jul 02, 2011 PART B [id number] ADRIANA JOSÉ PATIENT MEDICARE (WNR) MEDICARE (M) PART A Jul 02, 2011 PART A [id number] ADRIANA JOSÉ PATIENT MEDICARE (WNR) MEDICARE (M) PART B Jul 02, 2011 PART B [id number] ADRIANA JOSÉ PATIENT [place] [employer] MEDIC ARE SUPPL EMENT Jul 02, 2011 CORE [id number] [phone] ADRIANA JOSÉ PATIENT [place] [employer] MEDIC ARE PREFE RRED Apr 02, 2015 CORE [id number] ADRIANA JOSÉ PATIENT [employer] [employer] MEDIC ARE SUPPL EMENT Jul 02, 2011 CORE [id number] ADRIANA JOSÉ PATIENT Selected Encounter This section includes the information on record at [place] for the Encounter. Date/Time Encounter Type Encounter Description Reason Provider Source Nov 28, 2023 02:00 PM COMPRE OPH EXAM EST PT 1/> OPTOMETRY ICD-10-CM H40.013 Open angle with borderline findings, low risk, bilateral ELIF BAKER David Encounter Template Text not used by [place] Assessments - Encounter Diagnoses This section includes the primary and secondary diagnoses documented for the Encounter. Date/Time Primary/Secondary Diagnosis Diagnosis Name Provider Source Nov 28, 2023 02:44 PM PRIMARY Open angle with borderline findings, low risk, bilateral ELIF BAKER [place] [facility] [place] [facility] Nov 28, 2023 02:44 PM SECONDARY Age-related nuclear cataract, right eye ELIF BAKER [place] [facility] [place] [facility] Nov 28, 2023 02:44 PM SECONDARY Nexdtve age-related mclr degn, bilateral, early dry stage ELIF BAKER [facility] [place] [facility] Plan of Treatment: Future Appointments (+ 6 months) and Future Tests (+/- 45 days) The Plan of Treatment section includes future care activities for the patient from all [place] [facility] This section includes future appointments and future orders which are active, pending or scheduled. Future Appointments This section includes appointments that were scheduled to occur 6 months from the date of the Encounter, up to a maximum of 20 appointments. The data comes from all [place] treatment facilities. Appointment Date/Time Appointment Type Appointme nt Facility Name Jan 16, 2024 01:30 PM AM[place]ULATORY - [place]ICINE [place] [facility] [place] [facility] Feb 07, 2024 01:30 PM AM[facility]UL[facility]ORY - MEDICINE [facility] Apr 22, 2024 09:00 AM [place]ULATORY [place] [facility] [place] [facility] Apr 22, 2024 09:15 AM [place]ULATORY [place] [facility] [place] [facility] May 26, 2024 03:30 PM [place]UL[place] [facility] [place] [facility] May 29, 2024 02:00 PM [place]ULATORY [place] [facility] [place] [facility] Social History: Smoking Status (Most current) and Tobacco Use (All prior to encounter date) This section includes the most current, and the historical, smoking and tobacco- related health factors from the [place] facility where the Encounter took place. Current Smoking Status This section includes the most current smoking, or tobacco-related health factor, from the [place] facility where the Encounter took place. Date/Time Current Smoking Status Comment Facil ity May 11, 2022 10:21 AM VA-TOBACCO USER EVERY DAY [place] [facility] Tobacco Use History This section includes a history of the smoking, or tobacco-related health factors, that were collected on or before the date of the Encounter. The data comes from the [place] facility where the Encounter took place. Date/Time Smoking Status/Tobacco Use Comment F acility May 11, 2022 10:21 AM VA-TOBACCO USE ADVICE [place] [facility] [place] [facility] May 11, 2022 10:21 AM VA-TOBACCO USE FAST FOOD WORKER NO [facility] [place] [facility] May 11, 2022 10:21 AM VA-TOBACCO USE MED NO [facility] [place] [facility] May 11, 2022 10:21 AM VA-TOBACCO USE WI 30 MIN OF WAKEUP [facility] May 11, 2022 10:21 AM VA-TOBACCO USER EVERY DAY [facility] Encounter Notes: All associated encounter notes [...] exam. Ordered consult to [facility] for cataract extraction OD. The patient will return in 6 months to repeat glaucoma imaging especially for OS optic nerve fiber layer thinning. /haritha/ ELIF BAKER OD STAFF GOLD MARKER Signed: 11/28/2023 14:44 ELIF BAKER [facility] Nov 28, 2023 12:25 PM OPTOMETRY NOTE: LOCAL TITLE: OPTOMETRY NOTE STANDARD TITLE: OPTOMETRY NOTE DATE OF NOTE: NOV 28, 2023@12:25 ENTRY DATE: NOV 28, 2023@12:26:01 AUTHOR: ROBI PONCE EXP COSIGNER: EILF BAKER URGENCY: STATUS: COMPLETED Active problems - Computerized Problem List is the source for the followin. Body mass index 25-29 - overweight 2. Benign Prostatic Hypertrophy without Outflow Obstruction (SCT 702490689) 3. History of adenomatous polyp of colon 4. Acute deep venous thrombosis of internal jugular vein 5. Non-Hodgkin lymphoma 6. H/O Malignant melanoma 7. Squamous cell carcinoma of skin 8. Benign essential hypertension (SNOMED CT 6128570) 9. Impaired fasting glucose (SNOMED CT 320858662) 10. Drug Hypersensitivity 11. Osteoarthrosis, unspecified whether generalized or localized, involving unsp 12. Rotator cuff (capsule) sprain or strain 13. Basal cell carcinoma of face (SNOMED CT 632225700) 14. Unspecified internal derangement of knee 15. family history of melanoma 16. Light tobacco smoker (SNOMED CT 911108268855648) 17. HEMATURIA 18. Spondylosis 19. Hyperlipidemia (SNOMED CT 98776346) 20. DEPRESSIVE DISORDER 21. Coronary arteriosclerosis Active [...] for CE consult at [facility] -pt opts to proceed with CE consult [...] to Clinic 6 months or earlier PRN [place] Education: After discussion and answering all 's [...] 11/28/2023 15:53 /haritha/ ELIF BAKER OD STAFF GOLD MARKER Cosigned: 11/28/2023 15:54 RICE[facility]BIZEE [facility]
--- OUTSIDE RECORDS SUMMARY | 2024-07-11 13:38 | XMS_ITS | Encounter Summary ---
Author Name [facility] [place] [facility] [place] Address [address] [place] [address] Care Team Providers Care Senior Maintenance Mechanic Name Role Phone NATALIE MASON Primary Care [...] PART A Jul 02, 2011 PART A [id number] ADRIANA JOSÉ PATIENT MEDICARE (WNR) MEDICARE (M) PART B Jul 02, 2011 PART B [id number] GC22 ADRIANA JOSÉ PATIENT MEDICARE (WNR) MEDICARE (M) PART A Jul 02, 2011 PART A [id number] GC22 ADRIANA JOSÉ PATIENT MEDICARE (WNR) MEDICARE (M) PART B Jul 02, 2011 PART B [id number] GC22 ADRIANA JOSÉ PATIENT MEDICARE (WNR) MEDICARE (M) PART A Jul 02, 2011 PART A [id number] GC22 ADRIANA JOSÉ PATIENT MEDICARE (WNR) MEDICARE (M) PART B Jul 02, 2011 PART B [id number] GC22 ADRIANA JOSÉ PATIENT MEDICARE (WNR) MEDICARE (M) PART A Jul 02, 2011 PART A [id number] GC22 ADRIANA JOSÉ PATIENT MEDICARE (WNR) MEDICARE (M) PART B Jul 02, 2011 PART B [id number] [id number] [phone] ADRIANA JOSÉ PATIENT [place] [employer] [place] MEDIC ARE SUPPL EMENT Jul 02, 2011 [facility] [id number] ADRIANA JOSÉ PATIENT [place] [employer] SUPPLEMEN [place] MEDIC ARE PREFE RRED Apr 02, 2015 [facility] [id number] ADRIANA JOSÉ PATIENT [place] [employer] SUPPLEMEN [place] MEDIC ARE SUPPL EMENT Jul 02, 2011 [facility] [id number] ADRIANA JOSÉ PATIENT Selected Encounter This section includes the information on record at [place] for the Encounter. Date/Time Encounter Type Encounter Description Reason Provider Source Apr 22, 2024 09:15 AM CPTRZD OPH DX IMG PST SGM ON OPTOMETRY ICD-10-CM H40.013 Open angle with borderline findings, low risk, bilateral ELIF BAKER Encounter Template Text not used by [place] Assessments - Encounter Diagnoses This section includes the primary and secondary diagnoses documented for the Encounter. Date/Time Primary/Secondary Diagnosis Diagnosis Name Provider Source May 26, 2024 03:27 PM PRIMARY Open angle with borderline findings, low risk, bilateral ELIF BAKER [place] [facility] [facility] Plan of Treatment: Future Appointments (+ 6 [...] - MEDICINE [place] [facility] May 29, 2024 02:00 PM AMBULATORY - MEDICINE [place] [facility] [place] [facility] Jul 07, 2024 03:30 PM AMBULATORY - MEDICINE [place] [facility] [place] [facility] Oct 09, 2024 01:00 PM AMBULATORY - MEDICINE [facility] Social History: Smoking Status (Most [...] USER SOME DAYS [place] [facility] [place] [facility] Tobacco Use History This section includes a history of the smoking, or tobacco-related health factors, that were collected on or before the date of the Encounter. The data comes from the [place] facility where the Encounter took place. Date/Time Smoking Status/Tobacco Use Comment F acility Feb 07, 2024 01:30 PM VA-TOBACCO USE 30 YEARS OR MORE [place] [facility] [place] [facility] Feb 07, 2024 01:30 PM VA-TOBACCO USE ADVICE [place] [facility] [place] [facility] Feb 07, 2024 01:30 PM VA-TOBACCO USE BLUE SPLIT TRIMMER NO [place] [facility] [place] [facility] Feb 07, 2024 01:30 PM VA-TOBACCO USE MED NO [place] [facility] [place] [facility] Feb 07, 2024 01:30 PM VA-TOBACCO USER SOME DAYS [place] [facility] [place] [facility] May 11, 2022 10:21 AM VA-TOBACCO USE 30 YEARS OR MORE [place] [facility] [place] [facility] May 11, 2022 10:21 AM VA-TOBACCO USE ADVICE [place] [facility] [place] [facility] May 11, 2022 10:21 AM VA-TOBACCO USE BLUE SPLIT TRIMMER NO [place] [facility] [place] [facility] May 11, 2022 10:21 AM VA-TOBACCO USE MED NO [place] [facility] [place] [facility] May 11, 2022 10:21 AM VA-TOBACCO USE [place] 30 MIN OF WAKEUP [place] [facility] [facility] May 11, 2022 10:21 AM VA-TOBACCO USER EVERY DAY [place] [facility] Encounter Notes: All associated encounter notes [...] 04/22/2024 10:55 /haritha/ ELIF BAKER OD STAFF [place] CLAIMS SUPERVISOR Cosigned: 04/22/2024 10:59 ELY LATHAM Y [place] [facility]
--- OUTSIDE RECORDS SUMMARY | 2024-07-11 13:39 | XMS_ITS | Encounter Summary ---
Author Name [facility] [place] [facility] [place] Address [address] [place] [address] Care Team Providers Care Grapple Skidder Operator Name Role Phone NATALIE MASON Primary [...] PART A Jul 02, 2011 PART A [id number] ADRIANA JOSÉ PATIENT MEDICARE (WNR) MEDICARE (M) PART A Jul 02, 2011 PART A [id number] GC22 ADRIANA JOSÉ PATIENT MEDICARE (WNR) MEDICARE (M) PART B Jul 02, 2011 PART B [id number] GC22 [phone] ADRIANA JOSÉ PATIENT MEDICARE (WNR) MEDICARE (M) PART B Jul 02, 2011 PART B [id number] [id number] ADRIANA JOSÉ PATIENT MEDICARE (WNR) MEDICARE (M) PART A Jul 02, 2011 PART A [id number] GC22 [phone] ADRIANA JOSÉ PATIENT MEDICARE (WNR) MEDICARE (M) PART B Jul 02, 2011 PART B [id number] [id number] [phone] ADRIANA JOSÉ PATIENT MEDICARE (WNR) MEDICARE (M) PART A Jul 02, 2011 PART A [id number] GC22 ADRIANA JOSÉ PATIENT MEDICARE (WNR) MEDICARE (M) PART B Jul 02, 2011 PART B [id number] GC22 ADRIANA JOSÉ PATIENT [place] [employer] SU[employer] [place] MEDIC ARE SUPPL EMENT Jul 02, 2011 [facility] [id number] ADRIANA JOSÉ PATIENT [place] [employer] SUPPLEMEN [place] MEDIC ARE PREFE RRED Apr 02, 2015 [facility] [id number] ADRIANA JOSÉ PATIENT [place] [employer] SUPP[employer]MEN [employer] MEDIC ARE SUPPL EMENT Jul 02, 2011 [facility] [id number] ADRIANA JOSÉ PATIENT Selected Encounter This section includes the information on record at [place] for the Encounter. Date/Time Encounter Type Encounter Description Reason Provider Source Jul 07, 2024 03:30 PM INTRM OPH EXAM EST PATIENT OPTOMETRY ICD-10-CM H40.013 Open angle with borderline findings, low risk, bilateral ELIF BAKER [facility] Encounter Template Text not used by [place] Assessments - Encounter Diagnoses This section includes the primary and secondary diagnoses documented for the Encounter. Date/Time Primary/Secondary Diagnosis Diagnosis Name Provider Source Jul 08, 2024 07:40 AM PRIMARY Open angle with borderline findings, low risk, bilateral ELIF BAKER [facility] [place] [facility] Jul 08, 2024 07:40 AM SECONDARY Presence of intraocular lens ELIF BAKER [facility] Plan of Treatment: Future Appointments (+ 6 [...] - MEDICINE [facility] [place] [facility] Jan 05, 2025 03:30 PM AMBULATORY - MEDICINE [place] [facility] [facility] Social History: Smoking Status (Most current) [...] VA-TOBACCO DOESNT USE [place] 30 MIN WAKEUP [place] [facility] Tobacco Use History This section includes a history of the smoking, or tobacco-related health factors, that were collected on or before the date of the Encounter. The data comes from the [place] facility where the Encounter took place. Date/Time Smoking Status/Tobacco Use Comment F acility Feb 07, 2024 01:30 PM VA-TOBACCO USE 30 YEARS OR MORE [place] [facility] [place] [facility] Feb 07, 2024 01:30 PM VA-TOBACCO USE ADVICE [place] [facility] [place] [facility] Feb 07, 2024 01:30 PM VA-TOBACCO USE PREFLIGHT MECHANIC NO [place] [facility] [place] [facility] Feb 07, 2024 01:30 PM VA-TOBACCO USE MED NO [place] [facility] [facility] Feb 07, 2024 01:30 PM VA-TOBACCO USER SOME DAYS [place] [facility] [place] [facility] May 11, 2022 10:21 AM VA-TOBACCO USE 30 YEARS OR MORE [place] [facility] [place] [facility] May 11, 2022 10:21 AM VA-TOBACCO USE ADVICE [place] [facility] [place] [facility] May 11, 2022 10:21 AM VA-TOBACCO USE PREFLIGHT MECHANIC NO [place] [facility] [place] [facility] May 11, 2022 10:21 AM VA-TOBACCO USE MED NO [place] [facility] [facility] May 11, 2022 10:21 AM VA-TOBACCO USE [place] 30 MIN OF WAKEUP [place] [facility] [facility] May 11, 2022 10:21 AM VA-TOBACCO USER EVERY DAY [place] [facility] Encounter Notes: All associated encounter notes This section contains the clinical notes associated to the Encounter. Date/Time Encounter Note(s) Provider Source Jul 07, 2024 12:54 PM OPTOMETRY AIRCRAFT GENERAL REPAIR MECHANIC NOTE: LOCAL TITLE: OPTOMETRY AIRCRAFT GENERAL REPAIR MECHANIC NOTE STANDARD TITLE: OPTOMETRY AIRCRAFT GENERAL REPAIR MECHANIC NOTE DATE OF NOTE: JUL 07, 2024@12:54 ENTRY DATE: JUL 07, 2024@12:54:55 AUTHOR: ARACELI VALDEZ COSIGNER: URGENCY: STATUS: COMPLETED OPTOMETRY AIRCRAFT GENERAL REPAIR MECHANIC NOTE Has ADDENDA Active problems - Computerized Problem List is the source for the followin. Body mass index 25-29 - overweight 2. Benign Prostatic Hypertrophy without Outflow Obstruction (SCT 285875974) 3. History of adenomatous polyp of colon 4. Acute deep venous thrombosis of internal jugular vein 5. Non-Hodgkin lymphoma 6. H/O Malignant melanoma 7. Squamous cell carcinoma of skin 8. Benign essential hypertension (SNOMED CT 7166984) 9. Impaired fasting glucose (SNOMED CT 544524971) 10. Drug Hypersensitivity 11. Osteoarthrosis, unspecified whether generalized or localized, involving unsp 12. Rotator cuff (capsule) sprain or strain 13. Basal cell carcinoma of face (SNOMED CT 523805709) 14. Unspecified internal derangement of knee 15. family history of melanoma 16. Light tobacco smoker (SNOMED CT 219149471179566) 17. HEMATURIA 18. Spondylosis 19. Hyperlipidemia (SNOMED CT 65026031) 20. DEPRESSIVE DISORDER 21. Coronary arteriosclerosis Active [...] is not contributory to today's visit. Optometry Bootmaker Attending Provider Note: Date of Last Exam:05/26/2024 with VF test then Location: [facility] Last eye exam elsewhere: [facility] [place] (not recently) Chief Complaint:Im doing OK. Im [...] Dr Dustin MD Subjective Refraction: 04/2024 OD: +0.50-0.59c030 20/20 OS: +0.50 -1.25 x 080 20/40 [...] months or sooner if any problems arise. Education: After discussion and answering all 's questions, Ord demonstrated and verbalized understanding of diagnosis and [...] non-VA provider. /haritha/ ELIF BAKER OD STAFF INTERNATIONAL FIRST OFFICER Signed: 07/08/2024 07:40 ARACELI VALDEZ [place] [facility] [facility]
--- OUTSIDE RECORDS SUMMARY | 2024-07-11 13:39 | XMS_ITS ---
Author Organization [facility] Address [address] [place] [address] Care Team Providers Care Energy Conservation Engineer Name Role Phone Gabriel MONTGOMERY, Zachery Primary Care Provider Tootie Metzger Jr, Rian Unavailable Kathy Silverio M.D Unavailable Unavailable REASON FOR VISIT colon polyp Encounters Encounter Location Date Provider Diagnosis [facility] [address] [place] [address] 06/04/2024 Rian Metzger Jr Plan Of Treatment No Information Progress Notes * ADRIANA JOSÉ JDOB:1945 (78 yo M)Acc No.[id number]:06/04/2024 Progress Notes Patient:?ADRIANA JOSÉ Provider:?Rian Metzger MD :1945???Age:78 Y???Sex:Male Gabriel e:06/04/2024 Address:[address] [place], [place] [id number] Pcp:Zachery Rios MD Subjective: * Chief Complaints: [...] MD Date:?0 06/04/2024 Generated for Salvador guajardo/Flori/eTransmitting on:?07/11/2024 01:38 PM EDT
--- OUTSIDE RECORDS SUMMARY | 2024-07-11 13:39 | XMS_ITS ---
Author Organization [facility] Address [address] [place] [address] Care Team Providers Care Embedded Case Manager Name Role Phone Stephen Rios MDh Primary Care Provider Raquel Ruelas Unavailable [phone] De La Vega [...] Active Encounters Encounter Location Date Provider Diagnosis [address] [address] 04/18/2024 Raquel Smith Plan Of Treatment Next Appt Details Provider Name:Raquel castillo, 09/19/2024 01:45:00 PM, [address] [place], [address], Progress Notes * Robert MCINTYREDOB:1945 (78 yo M)Acc No.[id number]:04/18/2024 Progress Note Patient:?Robert MCINTYRE Provider:?Raquel Smith DPM :1945???Age:78 Y???Sex:Male Gabriel e:04/18/2024 Address:[address] [place] [address], [id number] Pcp:Zachery Rios MD Subjective: * Chief Complaints: [...] Smith DPM Date:? Generated for Salvador guajardo/Flori/Kerriesmitting on:?07/11/2024 01:39 PM EDT History and Physical Notes * HPI (History of Present Illness) Category Sub-Category Detail Notes Category Not es Painful Nails Pt States Last PCP Visit: Date:: 11/01/2023
--- OUTSIDE RECORDS SUMMARY | 2024-07-11 13:39 | XMS_ITS | Clinical Summary ---
Author Organization [facility] Address [address] [place] [address] Care Team Providers Care Batch Unloader Name Role Phone Zachery Rios MD Primary Care Provider Surgical History Surgery Date Site/Laterality Comments OTHER SURGICAL HISTORY PROCEDURE: AL EXCISION MALIGNANT LESION F/E/E/N/L 0.5 CM/< OTHER SURGICAL HISTORY 03/15/2017 Left PROCEDURE: AL ICAPSULAR CATARACT XTRJ INSJ IO LENS PRSTH [...] - 1-dose 75+ series) 2021 COVID-19 Vaccine ( - 2023-2 5 season) 2023 Influenza Vaccine (Season Ended) 2024 HIB Vaccines Aged Out No longer eligi [...] age to complete this topic Care Teams Batch Unloader Relationship Specialty Start Date End Date Zachery Rios MD [address] [place] [address] Dr [address] [place] PCP - General Internal Medicine 02/05/18
--- OUTSIDE RECORDS SUMMARY | 2024-07-11 13:39 | XMS_ITS ---
Author Name [facility] [place] [facility] [place] Address [address] [place] [address] Care Team Providers Care Medical Technician Assistant Name Role Phone NATALIE MASON Primary Care [...] PART A Jul 02, 2011 PART A [id number] ADRIANA JOSÉ PATIENT MEDICARE (WNR) MEDICARE (M) PART B Jul 02, 2011 PART B [id number] GC22 ADRIANA JOSÉ PATIENT MEDICARE (WNR) MEDICARE (M) PART A Jul 02, 2011 PART A [id number] GC22 ADRIANA JOSÉ PATIENT MEDICARE (WNR) MEDICARE (M) PART B Jul 02, 2011 PART B [id number] GC22 ADRIANA JOSÉ PATIENT MEDICARE (WNR) MEDICARE (M) PART A Jul 02, 2011 PART A [id number] [id number] [phone] ADRIANA JOSÉ PATIENT MEDICARE (WNR) MEDICARE (M) PART A Jul 02, 2011 PART A [id number] [id number] [phone] ADRIANA JOSÉ PATIENT MEDICARE (WNR) MEDICARE (M) PART B Jul 02, 2011 PART B [id number] [id number] [phone] ADRIANA JOSÉ PATIENT MEDICARE (WNR) MEDICARE (M) PART B Jul 02, 2011 PART B [id number] GC22 ADRIANA JOSÉ PATIENT [place] [employer] SU[employer] MEDIC ARE SUPPL EMENT Jul 02, 2011 [facility] [id number] ADRIANA JOSÉ PATIENT [employer] [employer] SUPP[employer]MEN [employer] MEDIC ARE PREFE RRED Apr 02, 2015 [facility] [id number] ADRIANA JOSÉ PATIENT [place] [employer] SUPP[employer]MEN [employer] MEDIC ARE SUPPL EMENT Jul 02, 2011 C[facility] [id number] [phone] ADRIANA JOSÉ PATIENT Selected Encounter This section includes the information on record at [place] for the Encounter. Date/Time Encounter Type Encounter Description Reason Provider Source Apr 22, 2024 09:00 AM INTRM OPH EXAM EST PATIENT OPTOMETRY ICD-10-CM H40.013 Open angle with borderline findings, low risk, bilateral ELIF BAKER [facility] Encounter Template Text not used by [place] Assessments - Encounter Diagnoses This section includes the primary and secondary diagnoses documented for the Encounter. Date/Time Primary/Secondary Diagnosis Diagnosis Name Provider Source Apr 22, 2024 10:17 AM PRIMARY Open angle with borderline findings, low risk, bilateral ELIF BAKER [facility] [place] [facility] Apr 22, 2024 10:17 AM SECONDARY Presence of intraocular lens ELIF BAKER [place] [facility] [facility] Apr 22, 2024 10:17 AM SECONDARY Retinal detachment with giant retinal tear, left eye ELIF BAKER [facility] Plan of Treatment: Future Appointments (+ 6 months) and Future Tests (+/- 45 days) The Plan of Treatment section includes future care activities for the patient from all [place] [facility]. This section includes future appointments and future orders which are active, pending or scheduled. Future Appointments This section includes appointments that were scheduled to occur 6 months from the date of the Encounter, up to a maximum of 20 appointments. The data comes from all [place] treatment facilities. Appointment Date/Time Appointment Type Appointme nt Facility Name May 26, 2024 03:30 PM AMBULATORY - MEDICINE [place] [facility] May 29, 2024 02:00 PM AMBULATORY - MEDICINE [place] [facility] Jul 07, 2024 03:30 PM AMBULATORY - MEDICINE [place] [facility] Oct 09, 2024 01:00 PM AMBULATORY - MEDICINE [facility] Social History: Smoking Status (Most current) and Tobacco Use (All prior to encounter date) This section includes the most current, and the historical, smoking and tobacco- related health factors from the [place] facility where the Encounter took place. Current Smoking Status This section includes the most current smoking, or tobacco-related health factor, from the [place] facility where the Encounter took place. Date/Time Current Smoking Status Comment Facil ity Feb 07, 2024 01:30 PM VA-TOBACCO DOESNT USE [place] 30 MIN WAKEUP [place] [facility] Tobacco Use History This section includes a history of the smoking, or tobacco-related health factors, that were collected on or before the date of the Encounter. The data comes from the [place] facility where the Encounter took place. 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 DEVELOPER NO [place] [facility] [facility] Feb 07, 2024 01:30 PM VA-TOBACCO USE MED NO [place] [facility] [place] [facility] Feb 07, 2024 01:30 PM VA-TOBACCO USER SOME DAYS [place] [facility] [place] [facility] May 11, 2022 10:21 AM VA-TOBACCO USE 30 YEARS OR MORE [place] [facility] [place] [facility] May 11, 2022 10:21 AM VA-TOBACCO USE ADVICE [place] [facility] [place] [facility] May 11, 2022 10:21 AM VA-TOBACCO USE 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 /haritha/ ELIF BAKER OD STAFF BULK MAIL CLERK Signed: 04/22/2024 10:17 ELIF BAKER [place] [facility] [place] [facility] Apr 22, 2024 07:17 AM OPTOMETRY NOTE: LOCAL TITLE: OPTOMETRY NOTE STANDARD TITLE: OPTOMETRY NOTE DATE OF NOTE: APR 22, 2024@07:17 ENTRY DATE: APR 22, 2024@07:18:08 AUTHOR: ELY LATHAM EXP COSIGNER: ELIF BAKER URGENCY: STATUS: COMPLETED Active problems - Computerized Problem List is the source for the followin. Body mass index 25-29 - overweight 2. Benign Prostatic Hypertrophy without Outflow Obstruction (SCT 611846201) 3. History of adenomatous polyp of colon 4. Acute deep venous thrombosis of internal jugular vein 5. Non-Hodgkin lymphoma 6. H/O Malignant melanoma 7. Squamous cell carcinoma of skin 8. Benign essential hypertension (SNOMED CT 9563935) 9. Impaired fasting glucose (SNOMED CT 850867587) 10. Drug Hypersensitivity 11. Osteoarthrosis, unspecified whether generalized or localized, involving unsp 12. Rotator cuff (capsule) sprain or strain 13. Basal cell carcinoma of face (SNOMED CT 545026549) 14. Unspecified internal derangement of knee 15. family history of melanoma 16. Light tobacco smoker (SNOMED CT 178437797911411) 17. HEMATURIA 18. Spondylosis 19. Hyperlipidemia (SNOMED CT 10253333) 20. DEPRESSIVE DISORDER 21. 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
--- OUTSIDE RECORDS SUMMARY | 2024-07-11 13:39 | XMS_ITS ---
Author Organization [facility] Address [address] [place] [address] Care Team Providers Care Digital Hardware Design Engineer Name Role Phone Gabriel MONTGOMERY, [place] Primary Care Provider Raquel Ruelas Unavailable [phone] Allergies No Known Allergies REASON FOR VISIT [...] Signs Height 5 ft 9 in in 04/23/2024 Weight 200 lbs 04/23/2024 BMI 29.53 kg/m2 04/23/2024 Blood pressure systolic 120 mm Hg 04/23/19 25 Blood pressure diastolic 80 mm Hg 025 Encounters Encounter Location Date Provider Diagnosis [facility] [address] [address] 04/23/2024 Rauqel Smith Onychomycosis B35.1 ; Pain in right [...] Reason: Provider Name:Raquel castillo, 09/19/2024 01:45:00 PM, [address] [place] [address], [phone], Procedure Notes * Category Sub-Category Detail Notes [...] use of a nail nipper and/or dremel-type thread grinder tool, to a more viable healthy nail plate [...] to maintain effectiveness in symptomatic relief - [address] Progress Notes * Robert MCINTYRE JDOB:1945 (78 yo M)Acc No.[id number]:04/23/2024 Progress Note Patient:?Robert MCINTYRE Provider:?Raquel Smith DPM :1945???Age:78 Y???Sex:Male Gabriel e:04/23/2024 Address:[address] [place], [place] [address] Pcp:Zachery Rios MD Subjective: * Chief Complaints: [...] use of a nail nipper and/or dremel-type thread grinder tool, to a more viable healthy nail plate [...] to maintain effectiveness in symptomatic relief - [address].? * Procedure Codes:?39885 JEANNEI DE NAIL, 6 OR MORE * Follow Up:?2 Months * Images: * Sign off status: Completed true * Provider:?Raquel Smith DPM Date:? Generated for Salvador guajardo/Flori/Jamesitting on:?07/11/2024 01:39 PM EDT History and Physical [...]
--- OUTSIDE RECORDS SUMMARY | 2024-07-11 13:39 | XMS_ITS | Patient Health Record ---
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 [address] [place] [phone] 08/23/2023 Rian Metzger Jr Polyp of colon, unspecified part of colon, unspecified type K63.[address] [facility] [address] [place] [phone] 12/11/2023 Rian Metzger Jr Assessments Encounter Date [...] [place] [address] [place] [address] [phone] [id number] ADRIANA JOSÉ Self - patient is the insured [employer] [address] [place] [phone] [id number] ADRIANA JOSÉ Self - patient is the [...]
--- OUTSIDE RECORDS SUMMARY | 2024-07-11 13:39 | XMS_ITS ---
Author Organization [facility] Address [address] [place] [phone] Care Team Providers Care Golf Club Head Former Name Role Phone Gabriel MONTGOMERY, Zachery Primary Care Provider Rian Larsen Jr Unavailable Kathy Silverio M.D Unavailable Unavailable REASON FOR VISIT hx polyps Encounters Encounter Location Date Provider Diagnosis [facility] [address] [place] [phone] 12/07/2023 Rian Metzger Jr Colon cancer screening Z12.11 Assessments Encounter Date Diagnosis (ICD Code) Assessment Notes Treatment Notes Treatment Clinical Notes Section Notes 12/07/2023 Colon cancer screening (ICD-10 - Z12.11) Plan Of Treatment No Information Progress Notes * ADRIANA JOSÉ JDOB:1945 (78 yo M)Acc No.[id number]:12/07/2023 COLON WITH MAC Patient:?ADRIANA JOSÉ Provider:?Rian Metzger MD :1945???Age:78 Y???Sex:Male Gabriel e:12/07/2023 Address:[address] [place] [address] Pcp:Zachery Rios MD Subjective: * Chief Complaints: * ???1. Hx polyps. * Medical History:? Objective: * Vitals:? Assessment: * Assessment: 1.?Colon cancer screening - Z12.11 (Primary)??? Plan: * Treatment: * Procedure Codes:?69624 DIAGN OSTIC COLONOSCOPY, 0529F INTRVL 3+YRS PTS CLNSCP DOCD * * The named appointment provid er may or may not be the originator of this progress note, and it is not deemed complete until electronically signed by the appointment provider. Sign off status: Pending * Provider:?Rian Metzger MD Date:?0 12/07/2023 Generated for Salvador guajardo/Flori/Jamesitting on:?07/11/2024 01:39 PM EDT
--- OUTSIDE RECORDS SUMMARY | 2024-07-11 13:39 | XMS_ITS ---
Author Organization [facility] Address [address] [place] [phone] Care Team Providers Care Infant Nanny Name Role Phone Gabriel MONTGOMERY, Zachery Primary Care Provider Tootie Metzger Jr, Rian Unavailable [phone] Kathy Silverio M.D Unavailable Unavailable REASON FOR VISIT please schedule f/u with Dr. Metzger in May Encounters Encounter Location Date Provider Diagnosis [facility] [address] [place] [phone] 12/11/2023 Rian Metzger Jr Plan Of Treatment No Information Progress Notes * ADRIANA JOSÉDOB:1945 (78 yo M)Acc No.[id number]:12/11/2023 Patient:?ADRIANA JOSÉ :1945???Age:78 Y???Sex:Male Address:[address] [place] [address], [address] * true * Date:? Generated for Printi ng/Faargenisg/eTransmitting on:?07/11/2024 01:38 PM EDT
--- OUTSIDE RECORDS SUMMARY | 2024-07-11 13:40 | XMS_ITS ---
Author Name [facility] Organization [facility] Address [address] [place] [address] Care Team Providers Care Lab Rep Name Role Phone NATALIE MASON Primary Care [...] PART A Jul 02, 2011 PART A [id number] [phone] ADRIANA JOSÉ PATIENT MEDICARE (WNR) MEDICARE (M) PART B Jul 02, 2011 PART B [id number] ADRIANA JOSÉ PATIENT MEDICARE (WNR) MEDICARE (M) PART A Jul 02, 2011 PART A [id number] ADRIANA JOSÉ PATIENT MEDICARE (WNR) MEDICARE (M) PART B Jul 02, 2011 PART B [id number] ADRIANA JOSÉ PATIENT MEDICARE (WNR) MEDICARE (M) PART A Jul 02, 2011 PART A [id number] ADRIANA JOSÉ PATIENT MEDICARE (WNR) MEDICARE (M) PART B Jul 02, 2011 PART B [id number] [phone] ADRIANA JOSÉ PATIENT MEDICARE (WNR) MEDICARE (M) PART A Jul 02, 2011 PART A [id number] ADRIANA JOSÉ PATIENT MEDICARE (WNR) MEDICARE (M) PART B Jul 02, 2011 PART B [id number] [phone] ADRIANA JOSÉ PATIENT [employer] SUPPL EMENT Jul 02, 2011 [facility] [id number] ADRIANA JOSÉ PATIENT [employer] ARE PREFE RRED Apr 02, 2015 [facility] [id number] ADRIANA JOSÉ PATIENT [employer] ARE SUPPL EMENT Jul 02, 2011 [facility] [id number] ADRIANA JOSÉ PATIENT Selected Encounter This section includes the information on record at [place] for the Encounter. Date/Time Encounter Type Encounter Description Reason Pro vider Source May 27, 2024 12:04 PM Outpatient Encounter ADMIN PAT ACTIVTIES (MASNONCT) IHE Encounter Template Text not used by [place] Plan of Treatment: Future Appointments (+ 6 months) and Future Tests (+/- 45 days) The Plan of Treatment section includes future care activities for the patient from all [place] treatmentfacilities. This section includes future appointments and future orders which are active, pending or scheduled. Future Appointments This section includes appointments that were scheduled to occur 6 months from the date of the Encounter, up to a maximum of 20 appointments. The data comes from all [place] treatment facilities. Appointment Date/Time Appointment Type Appointme nt Facility Name May 29, 2024 02:00 PM [facility] Jul 07[facility] 2024 03:30 PM [facility] Oct 09, 2024 01:00 PM [facility] History: Smoking Status (Most current) and Tobacco Use (All prior to encounter date) This section includes the most current, and the historical, smoking and tobacco- related health factors from the [place] facility where the Encounter took place. Current Smoking Status This section includes the most current smoking, or tobacco-related health factor, from the [place] facility where the Encounter took place. Date/Time Current Smoking Status Comment Cris ity Feb 07, 2024 01:30 PM VA-TOBACCO USER SOME DAYS [place] [facility] [place] [facility] Tobacco Use History This section includes a history of the smoking, or tobacco-related health factors, that were collected on or before the date of the Encounter. The data comes from the [place] facility where the Encounter took place. Date/Time Smoking Status/Tobacco Use Comment F acility Feb 07, 2024 01:30 PM VA-TOBACCO USE 30 YEARS OR MORE [facility] [place] [facility] Feb 07, 2024 01:30 PM VA-TOBACCO USE ADVICE [facility] [place] [facility] Feb 07, 2024 01:30 PM VA-TOBACCO USE FISH TRAPPER NO [facility] [place] [facility] Feb 07, 2024 01:30 PM VA-TOBACCO USE MED NO [facility] [place] [facility] Feb 07, 2024 01:30 PM VA-TOBACCO USER SOME DAYS [facility] [place] [facility] May 11, 2022 10:21 AM VA-TOBACCO USE 30 YEARS OR MORE [facility] [place] [facility] May 11, 2022 10:21 AM VA-TOBACCO USE ADVICE [facility] [place] [facility] May 11, 2022 10:21 AM VA-TOBACCO USE FISH TRAPPER NO [facility] [place] [facility] May 11, 2022 10:21 AM VA-TOBACCO USE MED NO [facility] [place] [facility] May 11, 2022 10:21 AM VA-TOBACCO USE WI 30 MIN OF WAKEUP [facility] [place] [facility] May 11, 2022 10:21 AM VA-TOBACCO USER EVERY DAY [facility] [place] [facility] Encounter Notes: All associated encounter notes [...] medication renewal: Non-controlled/maintena nce medication Medications requested: [id number] BUPROPION HCL 150MG 12HR SA TAB Defer to primary care provider To be mailed . Please review and renew if appropriate. *This note was generated by [facility] Customer [facility]. If you have any questions or need assistance, do not contact this author. Please refer all questions to your local, on-site pharmacy departments. /shalini MCCLURE Content Development Specialist, MS/Pharmacy Customer Care Signed: 05/27/2024 12:04 Receipt Acknowledged By: 05/30/2024 13:13 /haritha/ ELIZABETH TSANG NP NURSE PRACTITIONER for NATALIE Emmanuel MARLON 05/28/2024 15:48 /haritha/ JOZEF CAVANAUGH RN REGISTERED NURSE 05/27/2024 ADDENDUM STATUS: COMPLETED Patient is out of medication and would appreciate expedited delivery if available. Please contact the outpatient pharmacy for assistance with shipment /shalini MCCLURE Content Development Specialist, MS/Pharmacy Customer Care Signed: 05/27/2024 12:05 NILTON MCCLURE [place] [facility]
--- OUTSIDE RECORDS SUMMARY | 2024-07-11 13:40 | XMS_ITS | Continuity of Care Document ---
Author Name [facility] Organization [facility] Care Team Providers Care Senior Javascript Developer Name Role Phone [facility] Unavailable Unavailable Problems Combined list of problems [...] ZACARIAS Comment: Right IJ Port-A-Cath in place [place] Basal cell carcinoma of face (SNOMED CT 748514848) Active Condition [facility] [place] [facility] Benign essential hypertension (SNOMED CT 4607135) Active Condition [place] Benign Prostatic Hypertrophy without Outflow Obstruction (SCT 484711667) Active Condition [place] Body mass index 25-29 - overweight Active Condition [facility] Coronary arteriosclerosis Active Condition [facility] DEPRESSIVE DISORDER Active Condition [place] Drug Hypersensitivity Active Condition Mar 14 7 Entered By: ALEX LY Comment: NSAID (Naprosyn) hypersensivity [facility] [place] [facility] family history of melanoma Active Condition [place] H/O Malignant melanoma Active Condition May 04, 2020 Entered By: NATALIE ZACARIAS Comment: nose x2, s/p surgery- f/w [place] dermatology [place] HEMATURIA Active Condition [place] History of adenomatous polyp of colon Active Condition [place] Hyperlipidemia (SNOMED CT 47088956) Active Condition [place] Impaired fasting glucose (SNOMED CT 776416692) Active Condition [place] Light tobacco smoker (SNOMED CT 390367654453641) Active Condition [facility] Non-Hodgkin lymphoma Active Condition May 15, 2021 Entered By: NATALIE ZACARIAS Comment: 08/2020 Diffuse large B-cell lymphomaFeb 2021 Entered By: NATALIE ZACARIAS Comment: s/p small bowel resection 08/2020Feb 2021 Entered By: NATALIE ZACARIAS Comment: s/p R CHOP -6 cycles completed 03/2021Feb 2021 Entered By: NATALIE ZACARIAS Comment: f/w hem/onc [facility] McFeb 2021 Entered By: NATALIE ZACARIAS Comment: R IJ vein- [place] Osteoarthrosis, unspecified whether generalized or localized, involving unspecif Active Condition Oct 31 007 Entered By: CLAIRE BRISCOE Comment: bilateral knees[mild DJD] unrelated to service [facility] [place] [facility] Rotator cuff (capsule) sprain or strain (ICD-9-CM 840.4) Active Condition [facility] [place] [facility] Spondylosis Active Condition Jan 11, 2005 Entered By: DAEL GUSTAFSON Comment: spondylolysis [place] Squamous cell carcinoma of skin Active Condition [facility] Unspecified internal derangement of knee (ICD-9-CM [...] Ocular hypertension, left eye Active Diagnosis [facility] [place] [facility] Diagnosis: ICD-10-CM Z46.0 Encounter for fit/adjst of spectacles and contact lenses Active Diagnosis [facility] Diagnosis: ICD-10-CM Z00.8 Encounter for other general examination Active Diagnosis [facility] Diagnosis: ICD-10-CM C43.9 Malignant melanoma of skin, unspecified Active Diagnosis [facility] Medications Combined list of outpatient medications from Department of Defense and Veterans Affairs facilities.Medications provided include 1) outpatient medications from the last 15 months, and 2) patient-reported medications. Medication Details Route Status Patient Instructions Prescription Expires Prescription Number Last Dispense Date Ordering Provider Order Date Order Qty Source ASPIRIN 81MG TAB,EC TAKE ONE TABLET BY MOUTH ONCE DAILY ORAL ACTIVE NATALIE JACOBO 2023 [facility] [place] BRIMONIDINE 0.2%/BRINZO LAMIDE 1% SUSP,OPH INSTILL 1 DROP INTO THE LEFT EYE THREE TIMES A DAY OPHTHA LMIC ACTIVE 07/08/2025 [id number] Mike BAKER NDREW E 2024 8 [facility] [place] [facility] BRIMONIDINE 0.2%/BRINZO LAMIDE 1% SUSP,OPH INSTILL 1 DROP INTO THE LEFT EYE THREE TIMES A DAY OPHTHA LMIC DISCONT INUED 06/25/2024 [id number] 5 Mike BAKER NDREW E 2024 8 [facility] [place] [facility] BRIMONIDINE 0.2%/BRINZO LAMIDE 1% SUSP,OPH INSTILL 1 DROP INTO THE LEFT EYE THREE TIMES A DAY OPHTHA LMIC DISCONT INUED 05/11/2024 [id number] EMELYN GOMEZ EY P 2024 8 [facility] [place] BUPROPION HCL 150MG 12HR TAB,SA TAKE ONE TABLET BY MOUTH ONCE DAILY ORAL SUSPEND ED 05/31/2025 [id number] 5 Gregory TSANG 2024 90 [facility] [place] BUPROPION HCL 150MG 12HR TAB,SA TAKE ONE TABLET BY MOUTH ONCE DAILY ORAL DISCONT INUED 05/13/2024 [id number] STEFAN JACOBOJENKA Cholo 2023 90 [place] DOCUSATE NA 50MG/SENNOS IDES 8.6MG TAB TAKE 1 TABLET BY MOUTH ONCE DAILY FOR CONSTIPA TION ORAL ACTIVE 02/07/2025 [id number] HUYEN JACOBOJose GJESSICAJose GELIANE 2023 100 [place] KETOROLAC TROMETHAMIN E 0.5% SOLN,OPH INSTILL 1 DROP INTO THE RIGHT EYE THREE TIMES A DAY FOR 3 WEEKS FOLLOWIN G CATARACT SURGERY OPHTHA LMIC ACTIVE 02/08/2025 [id number] SAMRA LAUGHLIN VID R 2023 5 [facility] LISINOPRIL 5MG TAB TAKE ONE TABLET BY MOUTH ONCE DAILY TO CONTROL BLOOD PRESSURE ORAL ACTIVE 01/04/2025 [id number] 5 RA BRENNON ARCEO 2023 90 [facility] LISINOPRIL 5MG TAB TAKE ONE TABLET BY MOUTH ONCE DAILY TO CONTROL BLOOD PRESSURE ORAL DISCONT INUED 03/29/2024 [id number] JORGE BYRD 2022 90 [place] MULTIVIT/OP HTH AREDS2/LUTE IN/ZEAXANTH IN CAP/TAB TAKE 1 CAPSULE BY MOUTH TWICE DAILY IN THE MORNING AND EVENING, WITH FOOD ORAL ACTIVE 06/30/2025 [id number] 5 NATALIE JACOBO 2024 120 [facility] MULTIVIT/OP HTH AREDS2/LUTE IN/ZEAXANTH IN CAP/TAB TAKE 1 CAPSULE BY MOUTH TWICE DAILY IN THE MORNING AND EVENING, WITH FOOD ORAL DISCONT INUED 06/07/2024 [id number] 5 CHRISTINE PALOMARES B 2023 120 [facility] MULTIVITAMI NS W/MINERALS TAB TAKE ONE TABLET BY MOUTH ORAL ACTIVE DASHA GUSTAFSON 2004 [place] POLYETHYLEN E GLYCOL 3350 PWDR,ORAL TAKE 17 GRAMS(FI LL CAP TO 17GM LINE) BY MOUTH ONCE DAILY NEEDED FOR CONSTIPA TION [MIX WITH 4 TO 8OZ. OF BEVERAGE ] ORAL 08/03/2023 [id number] 4 NATALIE JACOBO 2022 510 [place] PREDNISOLON E ACETATE 1% SUSP,OPH INSTILL 1 DROP INTO THE RIGHT EYE FOUR TIMES A DAY FOR 3 WEEKS FOLLOWIN G SURGERY. SHAKE WELL. OPHTHA LMIC ACTIVE 02/08/2025 [id number] [place],DA VID R 2023 5 [place] [facility] [place] [facility] ROSUVASTATI N CA 40MG TAB TAKE ONE TABLET BY MOUTH ONCE DAILY FOR CHOLESTE ROL REPLAC ES ATORVAST ATIN ORAL ACTIVE 02/07/2025 [id number] 5 NATALIE JACOBO 2023 90 [facility] [place] ROSUVASTATI N CA 40MG TAB TAKE ONE TABLET BY MOUTH ONCE DAILY FOR CHOLESTE ROL REPLAC ES ATORVAST ATIN ORAL DISCONT INUED 05/28/2024 [id number] NATALIE JACOBO 2023 90 [facility] [place] Immunizations Combined list of available immunizations from the Department of Defense and Veterans Affairs facilities. Immunization Series Date Given Administered By Site Reaction Lot Number CVX Code Drug Singer Back Tender Status Comments Source INFLUENZA, UNSPECIFIED FORMULATION 2023 88 complet ed HISTORICA L INFORMATI ON - SOURCE UNSPECIFI ED, [facility] INFLUENZA, UNSPECIFIED FORMULATION 2022 88 complet ed HISTORICA L INFORMATI ON - SOURCE UNSPECIFI ED, [place] [facility] [place] [facility] INFLUENZA, UNSPECIFIED FORMULATION 2021 88 complet ed HISTORICA L INFORMATI ON - SOURCE UNSPECIFI ED, [place] [facility] [place] [facility] COVID-19 (MODERNA), MRNA, LNP-S, BIVALENT BOOSTER, PF, 50 MCG/0.5 ML OR 25MCG/0.25 ML DOSE 2021 229 complet ed HISTORICA L INFORMATI ON - SOURCE UNSPECIFI ED, [facility] COVID-19 (MODERNA), MRNA, LNP-S, PF, 100 MCG/0.5ML DOSE OR 50 MCG/0.25ML DOSE 3 2021 207 complet ed HISTORICA L INFORMATI ON - SOURCE UNSPECIFI ED, [facility] COVID-19 (MODERNA), MRNA, LNP-S, PF, 100 MCG OR 50 MCG DOSE 3 2020 207 complet ed [facility] INFLUENZA, UNSPECIFIED FORMULATION 2020 88 complet ed [facility] COVID-19 (MODERNA), MRNA, LNP-S, PF, 100 MCG/0.5 ML DOSE 2 2020 207 complet ed MOD; [id number]; 1 [place] COVID-19 (MODERNA), MRNA, LNP-S, PF, 100 MCG/0.5 ML DOSE 1 2020 207 complet ed MOD; [id number]; 1 [place] ZOSTER RECOMBINANT 2 2020 [...] JORGE LUIS LEBLANC 139 comple t ed [facility] [place] Results Combined list of recent chemistry, [...] Mar 27, 2023 03:03 PM Reporting Lab: [address] [address] Performing Lab: [address] [address] [facility] LIPID PANEL FASTING CHOLESTEROL [MASS/VOLUM E] IN SERUM OR PLASMA 174 mg/dL 04/09 Specimen Type: SERUM Comment: Hemolysis present analysis cannot be performed. Hemolysis present may falsly elevate Potassium Total and Direct Bili, Iron, AST, %Fe. Ordering Provider: MELVINA MOON Report Released Date/Time: Mar 27, 2023 03:03 PM Reporting Lab: [address] [address] Performing Lab: [address] [address] [facility] FASTING TRIGLYCERID E [MASS/VOLUM E] IN SERUM OR PLASMA 91 mg/dL 0 - 150 04/09 Specimen Type: SERUM Comment: Hemolysis present analysis cannot be performed. Hemolysis present may falsly elevate Potassium Total and Direct Bili, Iron, AST, %Fe. Ordering Provider: MELVINA MOON Report Released Date/Time: Mar 27, 2023 03:03 PM Reporting Lab: [address] [address] Performing Lab: [facility] [address] [address] [place] LIPID PANEL FASTING CHOLESTEROL IN LDL [MASS/VOLUM E] IN SERUM OR PLASMA BY CALCULATION 112 mg/dL 0 - 129 04/09 Specimen Type: SERUM Comment: Hemolysis present analysis cannot be performed. Hemolysis present may falsly elevate Potassium Total and Direct Bili, Iron, AST, %Fe. Ordering Provider: MELVINA MOON Report Released Date/Time: Mar 27, 2023 03:03 PM Reporting Lab: [facility] [address] [address] Performing Lab: [address] [address] [place] LIPID PANEL FASTING CHOLESTEROL .TOTAL/CHOL ESTEROL IN HDL [MASS RATIO] IN SERUM OR PLASMA 4.0 04/09 Specimen Type: SERUM Comment: Hemolysis present analysis cannot be performed. Hemolysis present may falsly elevate Potassium Total and Direct Bili, Iron, AST, %Fe. Ordering Provider: MELVINA MOON Report Released Date/Time: Mar 27, 2023 03:03 PM Reporting Lab: [address] [address] Performing Lab: [address] [address] [place] LIPID PANEL FASTING CHOLESTEROL IN HDL [MASS/VOLUM E] IN SERUM OR PLASMA 44 mg/dL 40 - 60 04/09 Specimen Type: SERUM Comment: Hemolysis present analysis cannot be performed. Hemolysis present may falsly elevate Potassium Total and Direct Bili, Iron, AST, %Fe. Ordering Provider: MELVINA MOON Report Released Date/Time: Mar 27, 2023 03:03 PM Reporting Lab: [address] [address] Performing Lab: [address] [address] [place] HEMOGLOBI N A1C PANEL HEMOGLOBIN [...] Mar 27, 2023 03:03 PM Reporting Lab: [address] [address] Performing Lab: [address] [address] [place] BASIC METABOLIC PANEL (fasting) UREA NITROGEN [MASS/VOLUM E] IN SERUM OR PLASMA 19 mg/dL 7 - 25 04/09 Specimen Type: SERUM Comment: Hemolysis present analysis cannot be performed. Hemolysis present may falsly elevate Potassium Total and Direct Bili, Iron, AST, %Fe. Ordering Provider: MELVINA MOON Report Released Date/Time: Mar 27, 2023 03:03 PM Reporting Lab: [facility] [address] [address] Performing Lab: [address] [address] [place] BASIC METABOLIC PANEL (fasting) GLUCOSE [MASS/VOLUM E] IN SERUM OR PLASMA 84 mg/dL 65 - 100 04/09 Specimen Type: SERUM Comment: Hemolysis present analysis cannot be performed. Hemolysis present may falsly elevate Potassium Total and Direct Bili, Iron, AST, %Fe. Ordering Provider: MELVINA MOON Report Released Date/Time: Mar 27, 2023 03:03 PM Reporting Lab: [facility] [address] [address] Performing Lab: [address] [address] [place] BASIC METABOLIC PANEL (fasting) SODIUM [MOLES/VOLU ME] IN SERUM OR PLASMA 142 mmol/L 135 - 145 04/09 Specimen Type: SERUM Comment: Hemolysis present analysis cannot be performed. Hemolysis present may falsly elevate Potassium Total and Direct Bili, Iron, AST, %Fe. Ordering Provider: MELVINA MOON Report Released Date/Time: Mar 27, 2023 03:03 PM Reporting Lab: [facility] [address] [address] Performing Lab: [address] [address] [facility] BASIC METABOLIC PANEL (fasting) POTASSIUM [MOLES/VOLU ME] IN SERUM OR PLASMA 4.0 mmol/L 3.5 - 5.0 04/09 Specimen Type: SERUM Comment: Hemolysis present analysis cannot be performed. Hemolysis present may falsly elevate Potassium Total and Direct Bili, Iron, AST, %Fe. Ordering Provider: MELVINA MOON Report Released Date/Time: Mar 27, 2023 03:03 PM Reporting Lab: [facility] [address] [address] Performing Lab: [facility] [address] [address] [facility] BASIC METABOLIC PANEL (fasting) CHLORIDE [MOLES/VOLU ME] IN SERUM OR PLASMA 111 mmol/L 100 - 110 04/09 H Specimen Type: SERUM Comment: Hemolysis present analysis cannot be performed. Hemolysis present may falsly elevate Potassium Total and Direct Bili, Iron, AST, %Fe. Ordering Provider: MELVINA MOON Report Released Date/Time: Mar 27, 2023 03:03 PM Reporting Lab: [facility] [address] [address] Performing Lab: [address] [address] [facility] BASIC METABOLIC PANEL (fasting) CARBON DIOXIDE, TOTAL [MOLES/VOLU ME] IN SERUM OR PLASMA 23 meq/L 20 - 30 04/09 Specimen Type: SERUM Comment: Hemolysis present analysis cannot be performed. Hemolysis present may falsly elevate Potassium Total and Direct Bili, Iron, AST, %Fe. Ordering Provider: MELVINA MOON Report Released Date/Time: Mar 27, 2023 03:03 PM Reporting Lab: [address] [address] Performing Lab: [address] [address] [place] [employer] BASIC METABOLIC PANEL (fasting) CREATININE [MASS/VOLUM E] IN SERUM OR PLASMA 0.99 mg/dL 0.50 - 1.40 04/09 Specimen Type: SERUM Comment: Hemolysis present analysis cannot be performed. Hemolysis present may falsly elevate Potassium Total and Direct Bili, Iron, AST, %Fe. Ordering Provider: MELVINA MOON Report Released Date/Time: Mar 27, 2023 03:03 PM Reporting Lab: [address] [address] Performing Lab: [address] [address] [place] BASIC METABOLIC PANEL (fasting) GLOMERULAR FILTRATION [...] Mar 27, 2023 03:03 PM Reporting Lab: [address] [address] Performing Lab: [address] [address] [place] LIVER FUNCTION PROTEIN [MASS/VOLUM E] IN SERUM OR PLASMA 6.8 g/dL 6.0 - 8.3 04/09 Specimen Type: SERUM Comment: Hemolysis present analysis cannot be performed. Hemolysis present may falsly elevate Potassium Total and Direct Bili, Iron, AST, %Fe. Ordering Provider: MELVINA MOON Report Released Date/Time: Mar 27, 2023 03:03 PM Reporting Lab: [address] [address] Performing Lab: [address] [address] [facility] ALBUMIN [MASS/VOLUM E] IN SERUM OR PLASMA 3.8 g/dL 3.5 - 5.0 04/09 Specimen Type: SERUM Comment: Hemolysis present analysis cannot be performed. Hemolysis present may falsly elevate Potassium Total and Direct Bili, Iron, AST, %Fe. Ordering Provider: MELVINA MOON Report Released Date/Time: Mar 27, 2023 03:03 PM Reporting Lab: [address] [address] Performing Lab: [address] [address] [facility] LIVER FUNCTION ALKALINE PHOSPHATASE [ENZYMATIC ACTIVITY/VO LUME] IN SERUM OR PLASMA 101 U/L 40 - 150 04/09 Specimen Type: SERUM Comment: Hemolysis present analysis cannot be performed. Hemolysis present may falsly elevate Potassium Total and Direct Bili, Iron, AST, %Fe. Ordering Provider: MELVINA MOON Report Released Date/Time: Mar 27, 2023 03:03 PM Reporting Lab: [address] [address] Performing Lab: [address] [address] [facility] ASPARTATE AMINOTRANSF ERASE [ENZYMATIC ACTIVITY/VO LUME] IN SERUM OR PLASMA 20 U/L 5 - 34 04/09 Specimen Type: SERUM Comment: Hemolysis present analysis cannot be performed. Hemolysis present may falsly elevate Potassium Total and Direct Bili, Iron, AST, %Fe. Ordering Provider: MELVINA MOON M Report Released Date/Time: Mar 27, 2023 03:03 PM Reporting Lab: [address] [address] Performing Lab: [address] [address] [place] LIVER FUNCTION ALANINE AMINOTRANSF ERASE [ENZYMATIC ACTIVITY/VO LUME] IN SERUM OR PLASMA 23 U/L 04/09 Specimen Type: SERUM Comment: Hemolysis present analysis cannot be performed. Hemolysis present may falsly elevate Potassium Total and Direct Bili, Iron, AST, %Fe. Ordering Provider: MELVINA MOON Report Released Date/Time: Mar 27, 2023 03:03 PM Reporting [facility]: [facility] [address] [address] Performing Lab: [address] [address] [place]IVER FUNCTION BILIRUBIN.T OTAL [MASS/VOLUM E] IN SERUM OR PLASMA commen tmg/dL 0.2 - 1.2 04/09 Specimen Type: SERUM Comment: Hemolysis present analysis cannot be performed. Hemolysis present may falsly elevate Potassium Total and Direct Bili, Iron, AST, %Fe. Ordering Provider: MELVINA MOON Report Released Date/Time: Mar 27, 2023 03:03 PM Reporting Lab: [address] [address] Performing Lab: [address] [phone] [place], [place] [address] CBC AND DIFF (AUTO) LEUKOCYTES [#/VOLUME] IN BLOOD BY AUTOMATED COUNT 7.15 10*3/u L 4.50 - 11.00 04/09 Specimen Type: BLOOD No comment entered. Ordering Provider: MELVINA MOON Report Released Date/Time: Mar 27, 2023 03:03 PM Reporting Lab: [address] [address] Performing Lab: [facility] [place] [facility] [address] [address] [place] CBC AND DIFF (AUTO) ERYTHROCYTE S [#/VOLUME] IN BLOOD BY AUTOMATED COUNT 4.89 10*6/u L 4.23 - 5.66 04/09 Specimen Type: BLOOD No comment entered. Ordering Provider: MELVINA MOON Report Released Date/Time: Mar 27, 2023 03:03 PM Reporting Lab: [facility] [place] [facility] [address] [address] Performing Lab: [facility] [address] [address] [place] CBC AND DIFF (AUTO) HEMOGLOBIN [MASS/VOLUM E] IN BLOOD 15.9 g/dL 12.8 - 17 04/09 Specimen Type: BLOOD No comment entered. Ordering Provider: MELVINA MOON Report Released Date/Time: Mar 27, 2023 03:03 PM Reporting Lab: [facility] [place] [address] [address] Performing Lab: [facility] [place] [address] [address] [place] CBC AND DIFF (AUTO) HEMATOCRIT [VOLUME FRACTION] OF BLOOD BY AUTOMATED COUNT 47.0 39.2 - 50.4 04/09 Specimen Type: BLOOD No comment entered. Ordering Provider: MELVINA MOON Report Released Date/Time: Mar 27, 2023 03:03 PM Reporting Lab: [facility] [place] [address] [address] Performing Lab: [facility] [place] [address] [address] [place] CBC AND DIFF (AUTO) MCV [ENTITIC VOLUME] BY AUTOMATED COUNT 96.1 fL 82 - 99 04/09 Specimen Type: BLOOD No comment entered. Ordering Provider: MELVINA MOON Report Released Date/Time: Mar 27, 2023 03:03 PM Reporting Lab: [facility] [place] [facility] [address] [address] Performing Lab: [facility] [address] [address] [place] CBC AND DIFF (AUTO) MCHC [MASS/VOLUM E] BY AUTOMATED COUNT 33.8 g/dL 30.8 - 35.1 04/09 Specimen Type: BLOOD No comment entered. Ordering Provider: MELVINA MOON Report Released Date/Time: Mar 27, 2023 03:03 PM Reporting Lab: [facility] [address] [address] Performing Lab: [facility] [address] [address] [place] CBC AND DIFF (AUTO) PLATELETS [#/VOLUME] IN BLOOD BY AUTOMATED COUNT 207 10*3/u L 140 - 360 04/09 Specimen Type: BLOOD No comment entered. Ordering Provider: MELVINA MOON Report Released Date/Time: Mar 27, 2023 03:03 PM Reporting Lab: [facility] [address] [address] Performing Lab: [facility]OS[facility]ITALUSE[address] [address] [place] CBC AND DIFF (AUTO) ERYTHROCYTE DISTRIBUTIO N WIDTH [RATIO] BY AUTOMATED COUNT 13.2 12.0 - 16.0 04/09 Specimen Type: BLOOD No comment entered. Ordering Provider: MELVINA MOON Report Released Date/Time: Mar 27, 2023 03:03 PM Reporting Lab: [facility]TRN [facility] [address] [address] Performing Lab: [facility]ITALUSE[address] [address] [place] CBC AND DIFF (AUTO) MONOCYTES [#/VOLUME] IN BLOOD BY AUTOMATED COUNT 0.57 10*3/u L 0.30 - 1.10 04/09 Specimen Type: BLOOD No comment entered. Ordering Provider: MELVINA MOON Report Released Date/Time: Mar 27, 2023 03:03 PM Reporting Lab: [place] [facility] [place] [address] [address] Performing Lab: [facility] [place] [address] [address] [place] CBC AND DIFF (AUTO) MCH [ENTITIC MASS] BY AUTOMATED COUNT 32.5 pg 26.2 - 32.6 04/09 Specimen Type: BLOOD No comment entered. Ordering Provider: MELVINA MOON Report Released Date/Time: Mar 27, 2023 03:03 PM Reporting Lab: [facility] [place] [address] [address] Performing Lab: [place] [facility] [place] [address] [address] [place] CBC AND DIFF (AUTO) NEUTROPHILS /100 LEUKOCYTES IN BLOOD BY AUTOMATED COUNT 63.8 43.7 - 75.8 04/09 Specimen Type: BLOOD No comment entered. Ordering Provider: MELVINA MOON Report Released Date/Time: Mar 27, 2023 03:03 PM Reporting Lab: [facility] [place] [address] [address] Performing Lab: [facility] [place] [address] [address] [place] CBC AND DIFF (AUTO) LYMPHOCYTES /100 LEUKOCYTES IN BLOOD BY AUTOMATED COUNT 19.3 14.0 - 42.3 04/09 Specimen Type: BLOOD No comment entered. Ordering Provider: MELVINA MOON Report Released Date/Time: Mar 27, 2023 03:03 PM Reporting Lab: [facility] [place] [address] [address] Performing Lab: [facility] [place] [address] [address] [place] CBC AND DIFF (AUTO) MONOCYTES/1 00 LEUKOCYTES IN BLOOD BY AUTOMATED COUNT 8.0 5.1 - 13.7 04/09 Specimen Type: BLOOD No comment entered. Ordering Provider: MELVINA MOON Report Released Date/Time: Mar 27, 2023 03:03 PM Reporting Lab: [place] [facility] [address] [address] Performing Lab: [place] [facility] [address] [address] [place] CBC AND DIFF (AUTO) EOSINOPHILS /100 LEUKOCYTES IN BLOOD BY AUTOMATED COUNT 7.8 0.4 - 6.8 04/09 H Specimen Type: BLOOD No comment entered. Ordering Provider: MELVINA MOON Report Released Date/Time: Mar 27, 2023 03:03 PM Reporting Lab: [place] [facility] [address] Performing Lab: [facility] [address] [address] [place] CBC AND DIFF (AUTO) BASOPHILS/1 00 LEUKOCYTES IN BLOOD BY AUTOMATED COUNT 0.8 0.1 - 2.0 04/09 Specimen Type: BLOOD No comment entered. Ordering Provider: MELVINA MOON Report Released Date/Time: Mar 27, 2023 03:03 PM Reporting Lab: [facility] [address] [address] Performing Lab: [facility] [address] [address] [place] CBC AND DIFF (AUTO) NEUTROPHILS [#/VOLUME] IN BLOOD BY AUTOMATED COUNT 4.56 10*3/u L 2.20 - 7.60 04/09 Specimen Type: BLOOD No comment entered. Ordering Provider: MELVINA MOON Report Released Date/Time: Mar 27, 2023 03:03 PM Reporting Lab: [facility] [place] [address] [address] Performing Lab: [place] [facility] [address] [address] [place] CBC AND DIFF (AUTO) LYMPHOCYTES [#/VOLUME] IN BLOOD BY AUTOMATED COUNT 1.38 10*3/u L 1.00 - 3.20 04/09 Specimen Type: BLOOD No comment entered. Ordering Provider: MELVINA MOON Report Released Date/Time: Mar 27, 2023 03:03 PM Reporting Lab: [facility]USE[address] [address] Performing Lab: [facility]TRN [facility] [place] [address] [place] CBC AND DIFF (AUTO) EOSINOPHILS [#/VOLUME] IN BLOOD BY AUTOMATED COUNT 0.56 10*3/u L 0.03 - 0.44 04/09 H Specimen Type: BLOOD No comment entered. Ordering Provider: MELVINA MOON Report Released Date/Time: Mar 27, 2023 03:03 PM Reporting Lab: [facility]TR[facility] [address] [address] Performing Lab: [facility]TRN [facility]ITALUSE[address] [address] [place] CBC AND DIFF (AUTO) BASOPHILS [#/VOLUME] IN BLOOD BY AUTOMATED COUNT 0.06 10*3/u L 0.01 - 0.13 04/09 Specimen Type: BLOOD No comment entered. Ordering Provider: MELVINA MOON Report Released Date/Time: Mar 27, 2023 03:03 PM Reporting Lab: [facility] [address] [address] Performing Lab: [facility]ITALRSHEL[facility]ERN [facility] [address] [address] [place] CBC AND DIFF (AUTO) IMMATURE GRANULOCYTE S/100 LEUKOCYTES IN BLOOD BY AUTOMATED COUNT 0.3 0.0 - 0.7 04/09 Specimen Type: BLOOD No comment entered. Ordering Provider: MELVINA MOON Report Released Date/Time: Mar 27, 2023 03:03 PM Reporting Lab: [facility] [address] [address] Performing Lab: [facility] [place] [facility] [address] [address] [place] CBC AND DIFF (AUTO) IMMATURE GRANULOCYTE S [#/VOLUME] IN BLOOD 0.02 10*3/u L 0.00 - 0.06 04/09 Specimen Type: BLOOD No comment entered. Ordering Provider: MELVINA MOON Report Released Date/Time: Mar 27, 2023 03:03 PM Reporting Lab: [facility] WSN [facility] [address] [address] Performing Lab: [facility] [address] [address] [facility] Vital Signs Combined list of inpatient and outpatient Vital Signs from Department of Defense and Veterans Affairs, ranging from 12 months to all on record, depending upon the facility. Vital Sign Value Date Comments Source SYSTOLIC BLOOD PRESSURE 143 02/07/2024 13:44:19 [facility] DIASTOLIC BLOOD PRESSURE 81 02/07/2024 13:44:19 [place] PULSE OXIMETRY 95 02/07/2024 13:44:19 [facility] WEIGHT 213.8 02/07/2024 13:44:19 [facility] BMI 31 kg/m2 02/07/2024 13:44:19 [facility] TEM[facility] 98.3 02/07/2024 13:44:19 [facility] PULSE 86 02/07/2024 13:44:19 [facility] Encounters Combined list of: 1) Encounters from Department of Veterans Affairs facilities going backup to the last 18 months, not all [place] inpatient encounters are included; 2) Encounters from the Department of Defense facilities going backup to 280 months. Location Location Details Encounter Type Encounter Number Reason For Visit Attending Provider ADM Date DC Date Status Disposition Source [place] [facility] [place] [facility] Outpatient Encounter [id number] 02/26 [place] [facility] [facility] [facility] [place] [facility] Outpatient Encounter [id number] 03/02 [place] [facility] [place] [facility] [facility] Encounter [id number] 03/29 [facility] [place] [facility] OFFICE O/P EST MOD 30 MIN [id number] Diagnos is: ICD-10- CM C43.9 Maligna nt melanom a of skin, unspeci fied JERRY-Kelly NOE,OG LEVAR M 04/09 [facility] [place] [facility] En[facility] [id number] 04/09 [facility] En[facility] [id number] 05/12 [facility] [place] [id number] 06/06 [facility] [place] En[facility] [id number] 06/21 [facility] [place] En[facility] [id number] 07/01 [facility] [place] En[facility] [id number] 07/24 [facility] [place] En[facility] [id number] 08/22 [facility] [place] En[facility] [id number] 11/26 [facility] [place] CPTR OPHTH DX IMG POST SEGMT [id number] Diagnos is: ICD-10- CM H40.013 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, low risk, bilater kenroy BAKER,JOCELIN LALITHA E 11/27 [facility] [place] 1/ [id number] Diagnos is: ICD-10- CM H40.013 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, low risk, bilater al SAMUEL,AN LALITHA E 11/27 [facility] En[facility] [id number] 12/06 [facility] [place] En[facility] [id number] 1.01/02 [facility] [place] Encounter [id number] [facility] [place] [id number] 1.01/17 [facility] [place] Encounter [id number] 02/06 [facility] [place] [facility] OFFICE O/P EST MOD 30 MIN [id number] 1BY. 02 Diagnos is: ICD-10- CM Z00.8 Encount er for other general examina tiHUYEN Roa 02/06 [place] [facility] En[facility] [id number] 03/15 [facility] En[facility] [id number] 03/18 [facility] [place] [id number] 04/09 [facility] [place] [id number] 04/09 [facility] [place] En[facility] [id number] 04/11 [facility] [place] INTRM OPH EXAM EST PATIENT [id number] Diagnos is: ICD-10- CM H40.013 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, low risk, bilater al JOCELIN BAKER LALITHA E 04/22 [facility] CPTRZD OPH DX IMG PST SGM ON [id number] Diagnos is: ICD-10- CM H40.013 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, low risk, bilater al JOCELIN BAKER LALITHA E 04/22 [facility] FIT SPECTACLES MULTIFOCAL [id number] Diagnos is: ICD-10- CM Z46.0 Encount er for fit/adj st of spectac les and contact lenses JOCELIN BAKER E 04/23 [facility] INTRM OPH EXAM EST PATIENT [id number] Diagnos is: ICD-10- CM 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, left eye JOCELIN BAKER E 05/26 [facility] En[facility] [id number] 05/27 [facility] [place] [place] EXTENDED VISUAL FIELD XM [id number] Diagnos is: ICD-10- CM H40.013 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, low risk, bilater JOCELIN Grover E 05/29 [facility] Out[facility] Encounter [id number] 05/29 [facility] [place] [place] Outpatient Encounter [id number] 06/29 [facility] [place] [place] INTRM OPH EXAM EST PATIENT [id number] Diagnos is: ICD-10- CM H40.013 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, low risk, bilater JOCELIN Grover E 07/07 [facility] [place] [facility] Social History Combined list of available smoking, tobacco, and other social history from Department of Defense and Veterans Affairs facilities. Social History Type Response Date Comment Source Tobacco smoking status CAIS VA-TOBACCO USER SOME DAYS 02/07/2024 [place] [facility] [place] [facility] History of tobacco use VA-TOBACCO USE ADVICE 02/07/2024 [place] [facility] [place] [facility] History of tobacco use VA-TOBACCO USER EVERY DAY 05/11/2022 [place] [facility] [place] [facility] History of tobacco use [place]CO FORMER USER 05/13/2021 [facility] History of tobacco use [place]-TOBACCO USE WI 30 MIN OF WAKEUP 05/04/2020 [facility] History of tobacco use [place]-TOBACCO USE MED NO 04/29/2018 [place] History of tobacco use VA-TOBACCO FORMER USER 03/22/2018 [place] History of tobacco use QUIT TOBACCO USE IN PAST YEAR 04/09/2017 reports quitting 4 months ago [facility] History of tobacco use CURRENT SMOKER 03/21/2016 [place] History of tobacco use CURRENT SMOKER 03/11/2015 6 cigarettes/d [facility] History of tobacco use CURRENT SMOKER 03/19/2014 5-6 cigarettes per day [facility] History of tobacco use V1-PT THINKING ABOUT QUIT TOBACCO USE 06/02/2013 [facility] History of tobacco use CURRENT SMOKER 11/29/2012 Pt stated that he smokes about 6 cigaretts a day [facility] History of tobacco use V1-TOBACCO CESS MEDS NOT PRESCRIBED 04/30/2012 PCP WILL ORDER THIS [facility] History of tobacco use CURRENT SMOKER 06/01/2011 Pt. states hi smokes 5-6 cigerettes a day. [facility] History of tobacco use CURRENT SMOKER 04/27/2010 smoker for 50 yrs...smokes 6-8 cigarettes per day [facility] History of tobacco use V1-PT THINKING ABOUT QUIT TOBACCO USE 09/13/2009 [facility] History of tobacco use CURRENT SMOKER 03/09/2009 10 cigarettes per day [facility] History of tobacco use CURRENT SMOKER 02/04/2008 Patient states he smokes a pack of ciggs per day. [facility] History of tobacco use V1-PT READY TO QUIT TOBACCO USE 03/14/2007 [facility] History of tobacco use CURRENT SMOKER 06/19/2006 counselled [facility] History of tobacco use QUIT TOBACCO USE IN PAST YEAR 06/13/2005 continue bupropion [facility] History of tobacco use CURRENT SMOKER 11/17/2004 1 pack a day [facility] History of tobacco use CURRENT SMOKER 06/23/2003 1ppd x 30yrs [facility] Plan of Care List of future care activities from Department of Veterans Affairs facilities. Additional future care activities may be listed in the Assessment and Plan section. Date/Time Care Activity Care Activity Detail Facili ty 10/09/2024 AMBULATORY - MEDICINE AMBULATORY - MEDICI [facility]
--- OUTSIDE RECORDS SUMMARY | 2024-07-11 13:40 | XMS_ITS | Patient Health Record ---
Author Organization [facility] Address [address] [place] [address] Care Team Providers Care Restaurant Worker Name Role Phone Gabriel MONTGOMERY, [place] Primary Care Provider Raquel Ruelas Unavailable [phone] Allergies No Known Allergies Reason For Referral [...] Problem Status W/U Status Risk Notes Problem [id number] Neuropathy (G62.9) Active confirmed Vital Signs Blood pressure diastolic 80 mm Hg 07/04/2024 Height 5 ft 9 in in 07/04/2024 Blood pressure systolic 120 mm Hg 07/04/2024 Weight 200 lbs 07/04/2024 BMI 29.53 kg/m2 07/04/2024 Encounters Encounter Location Date Provider Diagnosis [address] [address] 08/24/2023 Raquel Perica Tinea unguium B35.1 ; Tinea pedis of both feet B35.3 ; Pain in toe of right foot M79.674 ; Pain in toe of left foot M79.675 and Neuropathy G62.[address] [address] 11/16/2023 Raquel Perica Tinea unguium B35.1 ; Tinea pedis of both feet B35.3 ; Pain in toe of right foot M79.674 ; Pain in toe of left foot M79.675 and Neuropathy G62.[address] [address] 01/25/2024 Raquel Perica Onychomycosis B35.1 ; Pain in right toe(s) M79.674 and Pain in left toe(s) M79.[address] [address] 04/23/2024 Raquel Perica Onychomycosis B35.1 ; Pain in right toe(s) M79.674 and Pain in left toe(s) M79.[address] [address] 07/04/2024 Raquel Perica Onychomycosis B35.1 ; Pain in right toe(s) M79.674 and Pain in left toe(s) M79.[address] [address] 08/08/2023 [facility] [place] [address] [place] [address] 11/16/2023 Raquel Smith Assessments Encounter Date Diagnosis [...] Provider Name:Raquel castillo, 09/19/2024 01:45:00 PM, [address] [place], [address], Insurance Providers Payer Name Payer Address Payer Phone Subscriber Number Group Number Insured Name Patient Relationship to Insured Coverage Start Date Coverage End Date Medicare [employer] [address] [place] [address] [id number] Robert Mcintyre Self - patient is the insured [employer] Preferred [address] [place] [address] [id number] Robert Mcintyre Self - patient is the insured Medical (General) History Medical History History ICD Code Arthritis Back,Hip,and Knee pain Cancer Cataracts High blood pressure Macular degeneration Numbness Surgical History Surgery Date(Month/Year) melanoma 2017, 2018 lymphoma 2020 cataract surgery
--- OUTSIDE RECORDS SUMMARY | 2024-07-11 13:40 | XMS_ITS | Encounter Summary ---
Author Name [facility] [place] [facility] [place] Organization [facility] [place] [facility] [place] Address [address] [place] [address] Care Team Providers Care Inspector Final Assembly Electrical Name Role Phone NATALIE MASON Primary Care [...] PART A Jul 02, 2011 PART A [id number] [phone] ADRIANA JOSÉ PATIENT MEDICARE (WNR) MEDICARE (M) PART B Jul 02, 2011 PART B [id number] [phone] ADRIANA JOSÉ PATIENT MEDICARE (WNR) MEDICARE (M) PART B Jul 02, 2011 PART B [id number] [phone] ADRIANA JOSÉ PATIENT MEDICARE (WNR) MEDICARE (M) PART A Jul 02, 2011 PART A [id number] ADRIANA JOSÉ PATIENT MEDICARE (WNR) MEDICARE (M) PART A Jul 02, 2011 PART A [id number] [phone] ADRIANA JOSÉ PATIENT MEDICARE (WNR) MEDICARE (M) PART A Jul 02, 2011 PART A [id number] ADRIANA JOSÉ PATIENT MEDICARE (WNR) MEDICARE (M) PART B Jul 02, 2011 PART B [id number] ADRIANA JOSÉ PATIENT MEDICARE (WNR) MEDICARE (M) PART B Jul 02, 2011 PART B [id number] ADRIANA JOSÉ PATIENT [place] [facility] [facility] MED[employer] ARE SUPPL EMENT Jul 02, 2011 CORE [id number] ADRIANA JOSÉ PATIENT [facility] [employer] [place] MEDIC ARE PREFE RRED Apr 02, 2015 CORE [id number] [phone] ADRIANA JOSÉ PATIENT [facility] SU[employer] [place] MEDIC ARE SUPPL EMENT Jul 02, 2011 [facility] [id number] [phone] ADRIANA JOSÉ PATIENT Selected Encounter This section includes the information on record at [place] for the Encounter. Date/Time Encounter Type Encounter Description Reason Provider Source Feb 07, 2024 01:30 PM OFFICE O/P EST MOD 30 MIN PRIMARY CARE/MEDICINE ICD-10-CM Z00.8 Encounter for other general examination NATALIE SMITH [facility] Encounter Template Text not used by [place] Assessments - Encounter Diagnoses This section includes the primary and secondary diagnoses documented for the Encounter. Date/Time Primary/Secondary Diagnosis Diagnosis Name Provider Source Feb 07, 2024 02:35 PM PRIMARY Encounter for other general examination NATALIE SMITH [place] Feb 07, 2024 02:35 PM SECONDARY Athscl heart disease of [place] coronary artery w/o ang pctrs NATALIE SMITH [place] Feb 07, 2024 02:35 PM SECONDARY Benign prostatic hyperplasia without lower urinry tract symp NATALIE SMITH [place] Feb 07, 2024 02:35 PM SECONDARY Essential (primary) hypertension NATALIE SMITH [place] Feb 07, 2024 02:35 PM SECONDARY Malignant melanoma of skin, unspecified JERRY-BOSKO JACQUELINNATALIE [place] Feb 07, 2024 02:35 PM SECONDARY Mixed hyperlipidemia JERRY-NATHAN JACQUELINNATALIE [place] Feb 07, 2024 02:35 PM SECONDARY Nicotine dependence, cigarettes, uncomplicated JERRY-NATHAN JACQUELINNATALIE [place] Feb 07, 2024 02:35 PM SECONDARY Non-Hodgkin lymphoma, unspecified, unspecified site LISAAZDIN-BOSKO JACQUELINNATALIE [place] Feb 07, 2024 02:35 PM SECONDARY Obesity, unspecified NIRMALADIN-BOSKO JACQUELINNATALEI [place] Feb 07, 2024 02:35 PM SECONDARY Other constipation JERRY-NATALIE COURTNEY [place] Feb 07, 2024 02:35 PM SECONDARY Squamous cell carcinoma of skin, unspecified JERRY-NATALIE COURTNEY [place] Plan of Treatment: Future Appointments (+ 6 months) and Future Tests (+/- 45 days) The Plan of Treatment section includes future care activities for the patient [facility] [place] [facility] This section includes future appointments and future orders which are active, pending or scheduled. Future Appointments This section includes appointments that were scheduled to occur 6 months from the date of the Encounter, up to a maximum of 20 appointments. The data comes from all [facility]. Appointment Date/Time Appointment Type Appointme nt Facility Name Apr 22, 2024 09:00 AM AMBULATORY - MED[facility]INE [facility] Apr 22, 2024 09:15 AM AMBULATORY [facility] MEDICINE [facility] May 26, 2024 03:30 PM [facility] May 29, 2024 02:[address] [facility] Jul 07, 2024 03:30 PM AMBULATORY MEDICINE [...] of theEncounter. The data comes from all [place] treatment facilities. Test Date/Time Test Type Test Details Facility Name Jan 31, 2024 12:00 AM Laboratory - Chemi stry Order BASIC METABOLIC PANEL (fasting) BLOOD (SST-SERUM) [facility] Jan 31, 2024 12:00 AM Laboratory - Chemi stry Order HEMOGLOBIN A1C PANEL BLOOD (LAV-BLOOD) [facility] Jan 31, 2024 12:00 AM Laboratory - Chemi stry Order LIPID PANEL FASTING BLOOD (SST-SERUM) [facility] Jan 31, 2024 12:00 AM Laboratory - Chemi stry Order LIVER FUNCTION BLOOD (SST-SERUM) [facility] Jan 31, 2024 12:00 AM Laboratory - Chemi stry Order CBC AND DIFF (AUTO) BLOOD (LAV-BLOOD) [facility] Jan 31, 2024 12:00 AM Laboratory - Chemi stry Order TSH BLOOD (SST-SERUM) [facility] Vital Signs: All taken on the encounter date This section contains inpatient and outpatient Vital Signs collected on the date of the Encounter. Date/Time Temperature Pulse Blood Pressure Respiratory Rate SP02 Pain Height Weight Body Mass Index Source Feb 07, 2024 02:26 PM 135/85 [facility] [place] Feb 07, 2024 01:44 PM 98.3 86 143/81 95 213.8 31 [facility] IE Social History: Smoking Status (Most current) and Tobacco Use (All prior to encounter date) This section includes the most current, and the historical, smoking and tobacco- related health factors from the [place] facility where the Encounter took place. Current Smoking Status This section includes the most current smoking, or tobacco-related health factor, from the [place] facility where the Encounter took place. Date/Time Current Smoking Status Comment Facil ity May 13, 2021 02:00 PM VA-TOBACCO FORMER USER [place] Tobacco Use History This section includes a history of the smoking, or tobacco-related health factors, that were collected on or before the date of the Encounter. The data comes from the [place] facility where the Encounter took place. Date/Time Smoking Status/Tobacco Use Comment F acility May 13, 2021 02:00 PM VA-TOBACCO QUIT 1 TO < 5 YRS [place] May 04, 2020 10:00 AM VA-TOBACCO USE 5 TO 15 YEARS [place] May 04, 2020 10:00 AM VA-TOBACCO USE ADVICE [place] May 04, 2020 10:00 AM VA-TOBACCO USE DISTANCE EDUCATION TEACHER NO [place] May 04, 2020 10:00 AM VA-TOBACCO USE MED NO [place] May 04, 2020 10:00 AM VA-TOBACCO USE WI 30 MIN OF WAKEUP [place] May 04, 2020 10:00 AM VA-TOBACCO USER EVERY DAY [place] Apr 29, 2018 10:23 AM VA-TOBACCO USE 30 YEARS OR MORE [place] Apr 29, 2018 10:23 AM VA-TOBACCO USE ADVICE [place] Apr 29, 2018 10:23 AM VA-TOBACCO USE 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 Apr 29, 2018 10:23 AM VA-TOBACCO USER EVERY DAY [place] Mar 22, 2018 11:15 AM VA-TOBACCO FORMER USER [place] Mar 22, 2018 11:15 AM VA-TOBACCO QUIT 1 TO < 5 YRS [place] Apr 09, 2017 10:22 AM QUIT TOBACCO USE I N PAST YEAR reports quitting 4 months ago [place] Mar 21, 2016 01:22 PM CURRENT SMOKER [facility] Mar 21, 2016 01:22 PM V1-PT NOT INTEREST ED IN QUIT TOBACCO USE [place] Mar 11, 2015 10:58 AM CURRENT SMOKER 6 cigarettes/d [place] Mar 11, 2015 10:58 AM V1-PT DECLINES REF TO TOBACCO CESS [facility] Mar 11, 2015 10:58 AM V1-PT DECLINES TOB ACCO CESSATION [facility] Mar 11, 2015 10:58 AM V1-PT THINKING ABO UT QUIT TOBACCO USE [place] Mar 19, 2014 10:41 AM CURRENT SMOKER 5-6 cigarettes per day [place] Mar 19, 2014 10:41 AM V1-PT DECLINES REF TO TOBACCO CESS [facility] Mar 19, 2014 10:41 AM V1-PT DECLINES TOB ACCO CESSATION [facility] Mar 19, 2014 10:41 AM V1-PT THINKING ABO UT QUIT TOBACCO USE [place] Jun 02, 2013 02:03 PM V1-PT THINKING ABO UT QUIT TOBACCO USE [place] Nov 29, 2012 01:32 PM CURRENT SMOKER Pt stated that he smokes about 6 cigaretts a day [place] Nov 29, 2012 01:32 PM V1-PT DECLINES REF TO TOBACCO CESS [facility] Nov 29, 2012 01:32 PM V1-PT DECLINES TOB ACCO CESSATION MEDS [place] Nov 29, 2012 01:32 PM V1-PT THINKING ABO UT QUIT TOBACCO USE [place] Apr 30, 2012 01:32 PM V1-PT THINKING ABO UT QUIT TOBACCO USE [place] Apr 30, 2012 01:32 PM V1-TOBACCO CESS ME DS NOT PRESCRIBED PCP WILL ORDER THIS [place] Jun 01, 2011 08:37 AM CURRENT SMOKER Pt. states hi smokes 5-6 cigerettes a day. [place] Jun 01, 2011 08:37 AM V1-PT DECLINES REF TO TOBACCO CESS [facility] Jun 01, 2011 08:37 AM V1-PT NOT INTEREST ED IN QUIT TOBACCO USE [place] Apr 27, 2010 09:07 AM CURRENT SMOKER smoker for 50 yrs...smokes 6-8 cigarettes per day [place] Apr 27, 2010 09:07 AM V1-PT DECLINES REF TO TOBACCO CESS [facility] Apr 27, 2010 09:07 AM V1-PT DECLINES TOB ACCO CESSATION [facility] Apr 27, 2010 09:07 AM V1-PT NOT INTEREST ED IN QUIT TOBACCO USE [place] Sep 13, 2009 10:38 AM V1-PT DECLINES REF TO TOBACCO CESS [facility] Sep 13, 2009 10:38 AM V1-PT THINKING ABO UT QUIT TOBACCO USE [place] Mar 09, 2009 01:15 PM CURRENT SMOKER 10 cigarettes per day [place] Mar 09, 2009 01:15 PM V1-PT DECLINES REF TO TOBACCO CESS [facility] Mar 09, 2009 01:15 PM V1-PT THINKING ABO UT QUIT TOBACCO USE [place] Feb 04, 2008 12:51 PM CURRENT SMOKER Patient states he smokes a pack of ciggs per day. [place] Feb 04, 2008 12:51 PM V1-PT DECLINES REF TO TOBACCO CESS [facility] Feb 04, 2008 12:51 PM V1-PT READY TO RAFA T TOBACCO USE [place] Mar 14, 2007 01:11 PM V1-PT DECLINES REF TO TOBACCO CESS [facility] Mar 14, 2007 01:11 PM V1-PT READY TO RAFA T TOBACCO USE [place] Jun 19, 2006 08:10 AM CURRENT SMOKER counselled [place] Jun 13, 2005 08:55 AM QUIT TOBACCO USE I N PAST YEAR continue bupropion [place] Nov 17, 2004 09:20 AM CURRENT SMOKER 1 pack a day [place] Jun 23, 2003 02:22 PM CURRENT SMOKER 1ppd x 30yrs [place] Encounter Notes: All associated encounter notes This [...] 08/2020- PCP is Dr Zachery Rios in [place] - q3-4m Last visit 04/2023 Other providers: -eye [place] -podiatry [place] -dermatology - [place] [facility] - q3m -hem/onc Dr Prakash [place] [facility] q6m -GI Dr. 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 likes carbs/sugar/bread --Exercise:sedentary , some kamari work [...] current smoker -Patient undergoing evaluation by known [place] PCP, recently had echo, plan to get [...] 55% (12/2020) ECHO 01/2024 - with non [place] PCP report pending Cure rate with chemo [...] with oncology c/w annual screening with non [place] provider #LUTS: U/A negative,per pt PSA cheked by non [place] PCP pt self dc/d tamsulosin, LUTS not [...] --> repeat colonoscopy in 6-12m colonoscopy 01/2024 [facility] -->2 day prep did not work --> pt has f/u with GI Dr Metzger, in 04/2024 --> using private health insurance --Lung CA: pt aware if he has surveillance CT C/A/P with oncology no need to have CT chest at the [place] 08/2022 LDCT with oncology - no lung [...] note, last pcp note, colonoscopy Dr Metzger [facility]. thanks Medication Reconciliation: Outpatient: Has the patient been taking medications as documented in the EMLR? YES: The patient has been taking medications as documented in the EMLR. Essential Medication List for Review used to complete this medication reconciliation. INCLUDED IN THIS LIST: Alphabetical list of active outpatient prescriptions dispensed from this [place] (local) and dispensed from another [place] or [facility] facility (remote) as well as inpatient [...] STATUS: COMPLETED REcords requested from the following: [facility] Oncology/hemotology [facility] colonoscopy [facility] Dr. Metzger PCP Dr. Rios fax: [phone] /haritha/ ALLISON HERNANDEZ Signed: 02/08/2024 08:40 03/15/2024 ADDENDUM STATUS: COMPLETED Hem Onc note dated 02/26/2023 received, sent to [facility]. /haritha/ Carolina Reid RN Registered Nurse Signed: 03/15/2024 10:37 STEFAN MASON Jan 31, 2024 10:14 AM ADMINISTRATIVE NOT E: LOCAL TITLE: ADMINISTRATIVE NOTE STANDARD TITLE: ADMINISTRATIVE NOTE DATE OF NOTE: JAN 31, 2024@10:14 ENTRY DATE: JAN 31, 2024@10:14:59 AUTHOR: ALLISON SINGLETARY EXP COSIGNER: URGENCY: STATUS: COMPLETED [facility] [address] [place] [phone] * ADRIANA JOSÉ [address], [place] [address] Date: JAN 31, 2024 re: This is a reminder of your upcoming PCP appt with NATALIE MASON Appointment Date: Jan@13:30 Appointment Type: In-person visit Fasting blood work NON fasting blood work CONFIRMED WITH THE Sincerely, Office Staff for: NATALIE MASON Primary Care Provider [facility] [address] [place] [address] T [phone] F [phone] Upcoming Appointments: 02/07/2024 13:30 CWM/SO/PACT 5 05/29/2024 14:00 NHM/OPT/VISUAL IMAGING 12/05/2024 11:00 NHM/OPTOMETRY/BORASKI APPOINTMENT ABBREVIATION RECINOS (SPOPC OR SO = [address]) (GOPC OR GO = [address]) (NHM or NO = [facility]) (VVC - Video Call) (Tel-X Telephone Visit) ( - Telehealth) /haritha/ ALLISON HERNANDEZ Signed: 01/31/2024 10:15 ALLISON SINGLETARY [place]
--- OUTSIDE RECORDS SUMMARY | 2024-07-11 13:40 | XMS_ITS ---
Author Organization [facility] Address [address] [place] [address] Care Team Providers Care Toll Test Desk Worker Name Role Phone Gabriel MONTGOMERY, Concan Primary Care Provider Raquel Ruelas Unavailable [phone] Allergies No Known Allergies REASON FOR VISIT [...] Signs Height 5 ft 9 in in 07/04/2024 Weight 200 lbs 07/04/2024 BMI 29.53 kg/m2 07/04/2024 Blood pressure systolic 120 mm Hg 07/05/19 25 Blood pressure diastolic 80 mm Hg 025 Encounters Encounter Location Date Provider Diagnosis [facility] [address] [address] 07/04/2024 Raquel Smith Onychomycosis B35.1 ; Pain [...] Reason: Provider Name:Raquel castillo, 09/19/2024 01:45:00 PM, [address] [place] [address], [phone], Procedure Notes * Category Sub-Category Detail Notes [...] use of a nail nipper and/or dremel-type knife grinder, to a more viable healthy nail [...] to maintain effectiveness in symptomatic relief - [address]5715 Progress Notes * Robert MCINTYRE JDOB:1945 (78 yo M)Acc No.[id number]:07/04/2024 Progress Note Patient:?Robert MCINTYRE Provider:?Raquel Smith DPM :1945???Age:78 Y???Sex:Male Gabriel e:07/04/2024 Address:[address] [place], [place] [id number] Pcp:Zachery Rios MD Subjective: * Chief Complaints: [...] use of a nail nipper and/or dremel-type knife grinder, to a more viable healthy nail [...] to maintain effectiveness in symptomatic relief - [address]1233.? * Procedure Codes:?68607 JEANNEI DE NAIL, 6 OR MORE * Follow Up:?2 Months * Images: * Sign off status: Completed true * Provider:?Raquel Smith DPM Date:?07/2024 Generated for Salvador guajardo/Flori/Yecenia on:?07/11/2024 01:39 PM EDT History and Physical [...]
== END 2024-07-11 14:08 | disposition home or self-care (01) ==
LOC: HO.HMCH 13:11
PROVIDERS: PCP Internal Medicine; Visit Provider Internal Medicine
DX: I10 Essential (primary) hypertension (principal); I77.810 Thoracic aortic ectasia; I82.C11 Acute embolism and thrombosis of right internal jugular vein; C43.9 Malignant melanoma of skin, unspecified; E78.00 Pure hypercholesterolemia, unspecified; R73.01 Impaired fasting glucose; R06.09 Other forms of dyspnea; E66.9 Obesity, unspecified; D72.10 Eosinophilia, unspecified; Z68.31 Body mass index [BMI] 31.0-31.9, adult; F41.9 Anxiety disorder, unspecified; F17.200 Nicotine dependence, unspecified, uncomplicated

== ENCOUNTER → 2024-07-11 13:10 | Outpatient (BNVA) | payer MEDICARE, SELFPAY | PROVIDERS: PCP Internal Medicine; Visit Provider Internal Medicine | DX: I10 Essential (primary) hypertension (principal); E78.00 Pure hypercholesterolemia, unspecified; R73.01 Impaired fasting glucose; R06.09 Other forms of dyspnea; I77.810 Thoracic aortic ectasia; C83.398 Diffuse large B-cell lymphoma of other extranodal and solid organ sites; D72.10 Eosinophilia, unspecified; I82.C11 Acute embolism and thrombosis of right internal jugular vein; C43.9 Malignant melanoma of skin, unspecified; F41.9 Anxiety disorder, unspecified; E66.9 Obesity, unspecified; F17.210 Nicotine dependence, cigarettes, uncomplicated; Z68.31 Body mass index [BMI] 31.0-31.9, adult | CPT/HCPCS: 96127; 99212 ==

== ENCOUNTER 2024-09-19 12:29 | Outpatient (REF) | payer MEDICARE, SELFPAY ==
--- NOTE | ~2024-09-19 | CT_ITS ---
EXAMINATION: CT ABDOMEN AND PELVIS WITH CONTRAST CLINICAL INFORMATION: Follow-up small bowel lymphoma DLP: 976 mGY*cm COMPARISON: September 22, 2022 TECHNIQUE: Multidetector volumetric images were obtained from the superior aspect of the liver through the pubic symphysis following administration 100 mL of Omnipaque 350 intravenous contrast. Sagittal and coronal reformatted images were obtained on the technologist's workstation. Oral contrast: Present This CT examination was performed using dose optimization techniques as appropriate, variously including the following: *Automated exposure control *Adjustment of mA and/or kV according to patient size (this includes techniques or standardized protocols for targeted exams where dose is matched to indication/reason for exam; i.e. extremities or head) *Use of iterative reconstruction technique FINDINGS: LUNG BASES: The visualized lung bases are unremarkable. LIVER, GALLBLADDER, AND BILIARY TREE: The liver is normal in size, shape, and attenuation. No focal hepatic lesion or biliary ductal dilatation is present. The gallbladder is unremarkable with no evidence of radiopaque gallstones, gallbladder wall thickening, or obvious pericholecystic inflammatory changes. PANCREAS: Unremarkable. SPLEEN: Unremarkable. ADRENAL GLANDS: 11 mm left adrenal gland nodule is stable since 2020. Right adrenal gland is unremarkable. KIDNEYS AND URETERS: Bilateral simple renal cysts are present. 4 mm stone in the mid right kidney is unchanged. BLADDER: Unremarkable. GASTROINTESTINAL TRACT: Again noted are pseudodiverticula in the distal descending and sigmoid colon without inflammatory changes in the adjacent mesentery. No bowel wall thickening is present. Normal appendix is identified. ABDOMINAL WALL: Unchanged widening of the linea alba in the perivesical region. LYMPH NODES: Normal. VASCULAR: Mild atherosclerotic calcific lesions are evident. PELVIC VISCERA: Mildly enlarged prostate is again noted. OSSEOUS STRUCTURES: Moderate degenerative disc disease and facet arthropathy is again noted. There is also moderate osteoarthritis of both hip joints, greater on the right. CT/CT abdomen pelvis w IV con IMPRESSION: No evidence of recurrent disease. 3 mm nonobstructing stone is unchanged in right kidney. Fleischner guidelines were followed. Electronically signed by: Remigio Andersen MD 09/19/2024 03:36 PM EDT
[2024-09-19] MEDS: iohexoL 350 MG/ML 100 ML INFUS..BTL IV (15:03)
[2024-09-19] MEDS: Barium Sulfate Oral (Vanilla) 450 ML ORAL.SUSP 900 ML PO (15:04)
[2024-09-22 11:26] LABS: GFR POC > 60
== END 2024-09-19 12:30 | disposition home or self-care (01) ==
LOC: HO.CT 12:29
PROVIDERS: PCP Internal Medicine; Visit Provider Internal Medicine Medical Oncology
DX: C85.99 Non-Hodgkin lymphoma, unspecified, extranodal and solid organ sites (principal)
CPT/HCPCS: 74177; 82565; Q9967

== ENCOUNTER → 2024-09-19 12:31 | Outpatient (BNV) | payer MEDICARE, SELFPAY | PROVIDERS: PCP Internal Medicine; Visit Provider Radiology Diagnostic Radiology | DX: N28.1 Cyst of kidney, acquired (principal) | CPT/HCPCS: 74177 ==

== ENCOUNTER 2024-09-22 07:24 | Outpatient (REF) | payer MEDICARE, SELFPAY ==
[2024-09-22 07:41] LABS: MANUAL DIFF FLAG NO
[2024-09-22 07:47] LABS: Basophils Percent Auto 0.6 % (0-2); Eosinophils Absolute Auto 0.9 X10*3/uL (0.0-0.4); Eosinophils Percent Auto 13.3 % (0-4); Hematocrit 41.9 % (42.0-52.0); Hemoglobin 14.5 g/dl (14.0-18.0); Imm Gran Abs Auto 0.02 X10*3/uL (0.00-0.03); Imm Gran Pct Auto 0.3 % (0.0-0.4); Lymphocytes Absolute Auto 1.4 X10*3/uL (1.2-4.9); Lymphocytes Percent Auto 21.1 % (20-40); Mean Corpuscular HGB Conc 34.6 g/dl (31.0-36.0); Mean Corpuscular Hemoglobin 32.5 pg (27.0-33.0); Mean Corpuscular Volume 93.9 fL (80.0-98.0); Mean Platelet Volume 9.5 fL (9.4-12.4); Monocytes Absolute Auto 0.6 X10*3/uL (0.1-1.2); Monocytes Percent Auto 8.8 % (2-11); Neutrophils Absolute Auto 3.8 x10*3/uL (2.0-8.3); Neutrophils Percent Auto 55.9 % (45-73); Platelet Count 164 X10*3/uL (160-400); Red Blood Count 4.46 X10*6/uL (4.60-5.80); Red Cell Distribution Width 13.5 % (11.0-16.0); White Blood Count 6.8 X10*3/uL (4.8-10.8)
[2024-09-22 08:07] LABS: Alanine Aminotransferase 24 U/L (0-40); Albumin Level 3.9 g/dL (3.5-5.0); Alkaline Phosphatase 74 U/L (39-117); Anion Gap 9 (12-20); Aspartate Amino Transferase 23 U/L (5-37); Bilirubin Total 0.3 mg/dL (0.0-1.0); Blood Urea Nitrogen 14 mg/dL (9-16); Calcium 9.2 mg/dL (8.4-10.2); Carbon Dioxide 25 mmol/L (22-29); Chloride 111 mmol/L (96-108); Estimated Glomerular Filt Rate > 60; Glucose Random 115 mg/dL (60-115); Lactate Dehydrogenase 186 U/L (118-273); Potassium 3.7 mmol/L (3.3-5.1); Sodium 141 mmol/L (135-145); Total Protein 6.5 g/dL (6.5-8.0)
[2024-09-22 08:13] LABS: Rheumatoid Factor < 13.0 IU/mL (<15.0)
[2024-09-22 09:33] LABS: Erythrocyte Sedimentation Rate 18 MM/HR (0-15)
[2024-09-25 17:34] LABS: IgA 169 mg/dL (70-320); IgG 824 mg/dL (600-1540); IgM 231 mg/dL (50-300)
[2024-09-26 10:12] LABS: Anti Nuclear Antibody Pattern Nuclear, Homogeneous; Anti Nuclear Antibody Screen POSITIVE (NEGATIVE)
== END 2024-09-22 07:25 | disposition home or self-care (01) ==
LOC: HO.LAB 07:24
PROVIDERS: PCP Internal Medicine; Visit Provider Internal Medicine Medical Oncology
DX: C43.31 Malignant melanoma of nose (principal); C85.99 Non-Hodgkin lymphoma, unspecified, extranodal and solid organ sites
CPT/HCPCS: 36415; 80053; 82784; 83615; 85025; 85652; 86038; 86039; 86334; 86431

== ENCOUNTER 2024-11-27 14:57 | Outpatient (AMB) | payer MEDICARE, SELFPAY ==
--- OUTSIDE RECORDS SUMMARY | 2023-12-07 05:10 | XMS_ITS ---
Author Organization [place] Address [address] [place] [phone] Care Team Providers Care Client Advisor Name Role Phone Gabriel MONTGOMERY, Zachery Primary Care Provider Rian Larsen Jr Unavailable [phone] Kathy Silverio M.D Unavailable Unavailable REASON FOR VISIT hx polyps Encounters Encounter Location Date Provider Diagnosis [facility] [place] [address] [place] [phone] 12/07/2023 Rian Metzger Jr Colon cancer screening Z12.11 Assessments Encounter Date Diagnosis (ICD Code) Assessment Notes Treatment Notes Treatment Clinical Notes Section Notes 12/07/2023 Colon cancer screening (ICD-10 - Z12.11) Plan Of Treatment No Information Progress Notes * LUISWALLACEJAYADRIANA MONREAL JDOB:1945 (79 yo M)Acc No.[id number]:12/07/2023 COLON WITH MAC Patient: Cruz CLARKJOCELIN ADRIANA Robin Provider: Kelly Metzger MD :1945 A ge:78 Y S ex:Male Date:12/07/2023 Address:[address] [place], [place] [phone] Pcp:Zachery Rios MD Subjective: * Chief Complaints: [...] 0 12/07/2023 Generated for Salvador guajardo/Flori/Yecenia on: 0 11/27/2024 03:38 PM EDT
--- OUTSIDE RECORDS SUMMARY | 2024-02-07 09:30 | XMS_ITS | Encounter Summary ---
Author Name [facility] Organization [facility] Address [address] [place] [address] Care Team Providers Care Pharmacy Intake Technician Name Role Phone NATALIE MASON Primary Care Provide r Unavailable Insurance Providers: All historical and current Section Date Range: From patient's date of to the date document was created. This section includes the names of all active insurance providers for the patient. Insurance Provider Type of Coverage Plan Name Start of Policy Coverage End of Policy Coverage Group Number Member ID Insurance Provider's Telephone Number Policy Kc's Name Patient's Relationship to Policy Kc MEDICARE (WNR) MEDICARE (M) PART A Jul 02, 2011 PART A [id number] ADRIANA JOSÉ PATIENT MEDICARE (WNR) MEDICARE (M) PART A Jul 02, 2011 PART A [id number] ADRIANA JOSÉ PATIENT MEDICARE (WNR) MEDICARE (M) PART B Jul 02, 2011 PART B [id number] ADRIANA JOSÉ PATIENT MEDICARE (WNR) MEDICARE (M) PART A Jul 02, 2011 PART A [id number] [phone] ADRIANA JOSÉ PATIENT MEDICARE (WNR) MEDICARE (M) PART B Jul 02, 2011 PART B [id number] [phone] ADRIANA JOSÉ PATIENT MEDICARE (WNR) MEDICARE (M) PART B Jul 02, 2011 PART B [id number] [phone] ADRIANA JOSÉ PATIENT MEDICARE (WNR) MEDICARE (M) PART A Jul 02, 2011 PART A [id number] ADRIANA JOSÉ PATIENT MEDICARE (WNR) MEDICARE (M) PART B Jul 02, 2011 PART B [id number] [phone] ADRIANA JOSÉ PATIENT [place] [employer] SU[employer] MEDIC ARE SUPPL EMENT Jul 02, 2011 [facility] [id number] [phone] ADRIANA JOSÉ PATIENT [place] [employer] SUPP[employer] [place] MEDIC ARE PREFE RRED Apr 02, 2015 [facility] [id number] ADRIANA JOSÉ PATIENT [place] [employer] SUPP[employer] [place] MEDIC ARE SUPPL EMENT Jul 02, 2011 [facility] [id number] ADRIANA JOSÉ PATIENT Selected Encounter This section includes the information on record at OR for the Encounter. Date/Time Encounter Type Encounter Description Reason Provider Source Feb 07, 2024 01:30 PM OFFICE O/P EST MOD 30 MIN PRIMARY CARE/MEDICINE ICD-10-CM Z00.8 Encounter for other general examination NATALIE SMITH [facility] Encounter Template Text not used by OR Assessments - Encounter Diagnoses This section includes the primary and secondary diagnoses documented for the Encounter. Date/Time Primary/Secondary Diagnosis Diagnosis Name Provider Source Feb 07, 2024 02:35 PM PRIMARY Encounter for other general examination NATALIE SMITH [facility] Feb 07, 2024 02:35 PM SECONDARY Athscl heart disease of [place]al[place] coronary artery w/o ang pctrs NATALIE SMITH [facility] Feb 07, 2024 02:35 PM SECONDARY Benign prostatic hyperplasia without lower urinry tract symp NATALIE SMITH [facility] Feb 07, 2024 02:35 PM SECONDARY Essential (primary) hypertension NATALIE SMITH [facility] Feb 07, 2024 02:35 PM SECONDARY Malignant melanoma of skin, unspecified JERRY-BOSKO JACQUELINNATALIE [facility] Feb 07, 2024 02:35 PM SECONDARY Mixed hyperlipidemia JERRY-BOSKO JACQUELINNATALIE [facility] Feb 07, 2024 02:35 PM SECONDARY Nicotine dependence, cigarettes, uncomplicated JERRY-TALIBKO JACQUELINNATALIE [facility] Feb 07, 2024 02:35 PM SECONDARY Non-Hodgkin lymphoma, unspecified, unspecified site LISAAZDIN-BOSKO JACQUELINNATALIE [facility] Feb 07, 2024 02:35 PM SECONDARY Obesity, unspecified NIRMALADIN-BOSKO JACQUELINNATALIE [facility] Feb 07, 2024 02:35 PM SECONDARY Other constipation JERRY-NATALIE COURTNEY [facility] Feb 07, 2024 02:35 PM SECONDARY Squamous cell carcinoma of skin, unspecified JERRY-NATALIE COURTNEY [facility] Plan of Treatment: Future Appointments (+ 6 months) and Future Tests (+/- 45 days) The Plan of Treatment section includes future care activities for the patient from [facility] This section includes future appointments and future orders which are active, pending or scheduled. Future Appointments This section includes appointments that were scheduled to occur 6 months from the date of the Encounter, up to a maximum of 20 appointments. The data comes from all [facility]. Appointment Date/Time Appointment Type Appointme nt Facility Name Apr 22, 2024 09:00 AM AMBUL[facility] Apr 22, 2024 09:15 AM AMBULATORY - MEDICINE [facility] [place] [facility] May 26, 2024 03:30 PM AMBULATORY MEDICINE [facility] [place] [facility] May 29, 2024 02:00 PM AMBULATORY - MEDICINE [facility] Jul 07, 2024 03:30 PM [facility] Vital Signs: All taken on the encounter date This section contains inpatient and outpatient Vital Signs collected on the date of the Encounter. Date/Time Temperature Pulse Blood Pressure Respiratory Rate SP02 Pain Height Weight Body Mass Index Source Feb 07, 2024 02:26 PM 135/85 [facility] IE Feb 07, 2024 01:44 PM 98.3 86 143/81 95 213.8 31 [facility] Social History: Smoking Status (Most current) and Tobacco Use (All prior to encounter date) This section includes the most current, and the historical, smoking and tobacco- related health factors from the OR facility where the Encounter took place. Current Smoking Status This section includes the most current smoking, or tobacco-related health factor, from the OR facility where the Encounter took place. Date/Time Current Smoking Status Comment Facil ity May 13, 2021 02:00 PM VA-TOBACCO FORMER USER [facility] Tobacco Use History This section includes a history of the smoking, or tobacco-related health factors, that were collected on or before the date of the Encounter. The data comes from the OR facility where the Encounter took place. Date/Time Smoking Status/Tobacco Use Comment F acility May 13, 2021 02:00 PM VA-TOBACCO QUIT 1 TO < 5 YRS [facility] May 04, 2020 10:00 AM VA-TOBACCO USE 5 TO 15 YEARS [facility] May 04, 2020 10:00 AM VA-TOBACCO USE ADVICE [facility] May 04, 2020 10:00 AM VA-TOBACCO USE PROGRAM DIRECTOR/TRAFFIC DIRECTOR [facility] May 04, 2020 10:00 AM VA-TOBACCO USE MED [facility] May 04, 2020 10:00 AM VA-TOBACCO USE WI 30 MIN OF [facility] May 04, 2020 10:00 AM VA-TOBACCO USER EVERY DAY [facility] Apr 29, 2018 10:23 AM VA-TOBACCO USE 30 YEARS OR MORE [facility] Apr 29, 2018 10:23 AM VA-TOBACCO USE ADVICE [facility] Apr 29, 2018 10:23 AM VA-TOBACCO USE PROGRAM DIRECTOR/TRAFFIC DIRECTOR NO [facility] Apr 29, 2018 10:23 AM VA-TOBACCO USE MED [facility] Apr 29, 2018 10:23 AM VA-TOBACCO USE WI 30 MIN OF [facility] Apr 29, 2018 10:23 AM VA-TOBACCO USER EVERY DAY [facility] Mar 22, 2018 11:15 AM VA-TOBACCO FORMER USER [facility] Mar 22, 2018 11:15 AM VA-TOBACCO QUIT 1 TO < 5 YRS [facility] Apr 09, 2017 10:22 AM QUIT TOBACCO USE I N PAST YEAR reports quitting 4 months ago [facility] Mar 21, 2016 01:22 PM CURRENT SMOKER [facility] Mar 21, 2016 01:22 PM V1-PT NOT INTEREST ED IN QUIT TOBACCO USE [facility] Mar 11, 2015 10:58 AM CURRENT SMOKER 6 cigarettes/d [facility] Mar 11, 2015 10:58 AM V1-PT DECLINES REF TO TOBACCO CESS [facility] Mar 11, 2015 10:58 AM V1-PT DECLINES TOB ACCO CESSATION [facility] Mar 11, 2015 10:58 AM V1-PT THINKING ABO UT QUIT TOBACCO USE [facility] Mar 19, 2014 10:41 AM CURRENT SMOKER 5-6 cigarettes per day [facility] Mar 19, 2014 10:41 AM V1-PT DECLINES REF TO TOBACCO CESS [facility] Mar 19, 2014 10:41 AM V1-PT DECLINES TOB ACCO CESSATION [facility] Mar 19, 2014 10:41 AM V1-PT THINKING ABO UT QUIT TOBACCO USE [facility] Jun 02, 2013 02:03 PM V1-PT THINKING ABO UT QUIT TOBACCO USE [facility] Nov 29, 2012 01:32 PM CURRENT SMOKER Pt stated that he smokes about 6 cigaretts a day [facility] Nov 29, 2012 01:32 PM V1-PT DECLINES REF TO TOBACCO CESS [facility] Nov 29, 2012 01:32 PM V1-PT DECLINES TOB ACCO CESSATION [facility] Nov 29, 2012 01:32 PM V1-PT THINKING ABO UT QUIT TOBACCO USE [facility] Apr 30, 2012 01:32 PM V1-PT THINKING ABO UT QUIT TOBACCO USE [facility] Apr 30, 2012 01:32 PM V1-TOBACCO CESS ME DS NOT PRESCRIBED PCP WILL ORDER THIS [facility] Jun 01, 2011 08:37 AM CURRENT SMOKER Pt. states hi smokes 5-6 cigerettes a day. [facility] Jun 01, 2011 08:37 AM V1-PT DECLINES REF TO TOBACCO CESS [facility] Jun 01, 2011 08:37 AM V1-PT NOT INTEREST ED IN QUIT TOBACCO USE [facility] Apr 27, 2010 09:07 AM CURRENT SMOKER smoker for 50 yrs...smokes 6-8 cigarettes per day [facility] Apr 27, 2010 09:07 AM V1-PT DECLINES REF TO TOBACCO CESS [facility] Apr 27, 2010 09:07 AM V1-PT DECLINES TOB ACCO CESSATION [facility] Apr 27, 2010 09:07 AM V1-PT NOT INTEREST ED IN QUIT TOBACCO USE [facility] Sep 13, 2009 10:38 AM V1-PT DECLINES REF TO TOBACCO CESS [facility] Sep 13, 2009 10:38 AM V1-PT THINKING ABO UT QUIT TOBACCO USE [facility] Mar 09, 2009 01:15 PM CURRENT SMOKER 10 cigarettes per day [facility] Mar 09, 2009 01:15 PM V1-PT DECLINES REF TO TOBACCO CESS [facility] Mar 09, 2009 01:15 PM V1-PT THINKING ABO UT QUIT TOBACCO USE [facility] Feb 04, 2008 12:51 PM CURRENT SMOKER Patient states he smokes a pack of ciggs per day. [facility] Feb 04, 2008 12:51 PM V1-PT DECLINES REF TO TOBACCO CESS [facility] Feb 04, 2008 12:51 PM V1-PT READY TO RAFA T TOBACCO USE [facility] Mar 14, 2007 01:11 PM V1-PT DECLINES REF TO TOBACCO CESS [facility] Mar 14, 2007 01:11 PM V1-PT READY TO RAFA T TOBACCO USE [facility] Jun 19, 2006 08:10 AM CURRENT SMOKER counselled [facility] Jun 13, 2005 08:55 AM QUIT TOBACCO USE I N PAST YEAR continue bupropion [facility] Nov 17, 2004 09:20 AM CURRENT SMOKER 1 pack a day [facility] Jun 23, 2003 02:22 PM CURRENT SMOKER 1ppd x 30yrs [facility] Encounter Notes: All associated encounter notes This section contains the clinical notes associated to the Encounter. Date/Time Encounter Note(s) Provider Source Sep 29, 2024 10:22 AM NURSING NONVA NOTE : LOCAL TITLE: OUTSIDE LAB RESULTS STANDARD TITLE: NURSING NONVA NOTE DATE OF NOTE: SEP 29, 2024@10:22 ENTRY DATE: SEP 29, 2024@10:22:33 AUTHOR: JOZEF CAVANAUGH COSIGNER: URGENCY: STATUS: COMPLETED Outside Lab Values Date of Lab draw: Aug Location of lab tests: [facility] Notated Outside Lab Values: BMP: GLUCOSE 115 BUN 14 CREAT 1.09 eGFR >60 SODIUM 141 K+ 3.7 CL 111 CO2 25 CBC: WBC 6.8 RBC 4.46 HGB 14.5 HCT 41.9 MCV 93.9 MCH 32.5 MCHC 34.6 RDW 13.5 PLT 164 LYMPH % 21.1 MONO % 8.8 LIVER PANEL: AST 23 Copy of report sent to [facility] to scan into pt chart. /haritha/ JOZEF CAVANAUGHRN REGISTERED NURSE Signed: 09/29/2024 10:54 JOZEF CAVANAUGH Feb 07, 2024 01:30 PM PHYSICIAN NOTE: LOCAL TITLE: MD NOTE STANDARD TITLE: PHYSICIAN NOTE DATE OF NOTE: FEB 07, 2024@13:30 ENTRY DATE: FEB 07, 2024@08:15:13 AUTHOR: Dell MASON EXP COSIGNER: URGENCY: STATUS: COMPLETED NOTE Has ADDENDA Pt is 78 y/o M current smoker with PMH of obesity, HTN, HL, prediabetes, Skin cancer/melanoma, [place] lymphoma s/p small bowel resection - 08/2020- PCP is Dr Zachery Rios in [place] - q3-4m Last visit 04/2023 Other providers: -eye va -podiatry va -dermatology - [place] [facility] - q3m -hem/onc [facility] Prak[facility] [place] -GI Dr. Metzger pt reports doing well, has no new concerns #skin cancer, melanoma follow-up of his skin cancer, q3m with dermatology -h/o BCC scalp h/o melanoma nasal x 3 (last 2022 nasal s/p removal) #NHL s/p small bowel resection 2020 completed chemotherapy R CHOP 03/2021 - less energy since chemo f/w hem/onc Last ECHO 12/2020 EF 50-55% Surveillance CT scan (q6m) last 5 months ago per patient with no evidence of disease #HTN/HL BP always wnl at doctor's office in 110s/70s compliant with medications denies CP/SOB/palpitations/dizziness /claudication reports easily get fired, SOB with yard work - undergoing evaluation with non VA PCP - per pt recently had ECHO report pending pt reprots taht he had normal ECHO after chemo , but pagan has never been the same after chemo pt with long h/o tobacco, still smoking 4 cig per day, will get PFTs with non VA PCP denies h/o UT, CVA #Overweight BMI 30 stable weight Appetite good mostly sedentary decreased energy since chemo #tobacco Cut down smoking since on buproprion Currently smoking up to 4 cigarette/week- not interested to quit completed SCP in the past PAST MEDICAL HISTORY: -- obesity -- HTN -- HL -- prediabetes A1c 5.5 (10/2019) -- Chronic ischemic heart disease -- le claudication - pt denies sx --> referred by non VA pcp to vascular but never scheduled, Asx for long time -- HEMATURIA -- [place] lymphoma s/p small bowel resection - 08/2020- (details see 05/2021 note) -- DVT 2021 right internal jugular vein provoked -s/p AC 6m Right IJ Port-A-Cath removed -- 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 -- SCC scalp -- Basal Cell Cancer -- family history of melanoma -- Drug Hypersensitivity NSAID (Naprosyn) - nausea -- 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 -- Rotator cuff (capsule) sprain or strain -- BACK PAIN 05/2020 LS Mild multilevel lumbar spondylosis -- DEPRESSIVE DISORDER -- Light tobacco smoker PAST SURGICAL HISTORY: -- eye surgery - retina detachment -- s/p nasal melanoma excision x3, last 2022 f/b reconstructive surgery and skin grafting -- s/p small bowel resection - 08/2020- ALLERGIES:NKDA MEDICATIONS: --NON ASA --ROSUVASTATIN 40MG --LISINOPRIL 5MG FLUOROURACIL 5% CREAM APPLY A THIN LAYER TOPICALLY TWICE ACTIVE DAILY APPLY TO SCALP AND TEMPLES TWICE DAILY UNTIL RED AND CRUSTED FOR UP TO FOUR WEEKS --Non-VA MULTIVITAMIN/MINERALS --MULTIVIT/OPHTH AREDS2/LUTE/ZEAX CAP/ BACLOFEN 20MG TAB TID rarely --BUPROPION HCL 150MG 12HR SA ONCE DAILY POLYETHYLENE GLYCOL 3350 ORA FAMILY HISTORY: --DM: no --Cancer:-- family history of melanoma mother cervical cancer - dies in early 30s Brother colon cancer in 70s --UT: no --CVA:no --Mental Health/addiction: --Other:father of PNA SOCIAL HISTORY: --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 --Cohabitation: , lives alone, has GF of 30y --Children: 2 adult children --Diet: red meat 1-2/week, salad daily, 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 likes carbs/sugar/bread --Exercise:sedentary , some kamari work --Caffeine: decaf --EtOH: rare 3 beers/port wine /year --Tob: current smoker, up to 4 cig/day, h/o 60 PPDY last 10 years cut down, cut down since on welbutrin --MJ:denies --Illicits:denies --Sexual activity:one partner - GF --Eye: UTD --Dental: implants/dentures --Hospitalizations: 08/2020 bowel resection ROS: Constitutional: no fever/no chills, no ns Eyes: no decreased vision/blurry vision Ears/Nose/Throat: no hearing change Respiratory: no cough/wheezing/SOB Cardiovascular: no CP /palpitations/le edema Gastrointestinal: no abdominal pain/bloody/black stools/no diarrhea, constipation :no dysuria/hematuria/trouble voiding frequency, urgency, hesitancy mild, nocturia x2-3x MSK: chronic LBP currently doing well Neuro: no dizziness/H/A Skin: no pruritus/rash PHYSICAL EXAM: Vital Signs: Blood Pressure: 143/81 (02/07/2024 13:44) 134/77 (04/09/2023 10:58) 139/80 (05/11/2022 10:20) 125/87 (05/13/2021 14:37) Pulse: 86 (02/07/2024 13:44) Respiration: 16 Temperature: 98.3 F [36.8 C] (02/07/2024 13:44) BMI:31 Patient Weight: 213.8 lb [96.98 kg] (02/07/2024 13:44) 207.8 lb [94.26 kg] (04/09/2023 10:58) 206.9 lb [93.85 kg] (05/11/2022 10:20) 218.6 lb [99.4 kg] (05/01/2019 08:59) 202 lb [91.8 kg] (05/13/2021 14:37) GA: NAD, AOX3 NECK: supple, no JVD, no LAD, no thyromegaly or masses, CVS: RRR Lungs: CTA b/l ABD:Soft,NT/ND EXT: no edema Ambulates without assistance LABORATORY: non VA labs reviewed from 11/2023 CBC wnl BMP wnl glucose 115 LFT wnl TG 68 Chol 147 LDL 90 HLD 44 vit D35 TSH 1.53 U/A proteinuria 1+ IMAGING #10/2021 LDCT Left upper lobe 6.6 cm nodule abutting the pericardium appears slightly smaller than on the May 2021 study where it was a new finding. Otherwise unremarkable lungs. Follow-up low-dose noncontrast CT chest can be done in 6 months (May 2022) and assuming stability of the aforementioned nodule then annual surveillance can be done. Stable 4.1 cm ascending thoracic aortic aneurysm without evidence of leakage. ASSESSMENT/PLAN: Pt is 78 y/o M current smoker with PMH of obesity, HTN, HL, prediabetes, Skin cancer/melanoma, NHL s/p small bowel resection - 08/2020- #GARCIA -likely multifactorial, obesity, history of chemotherapy, sedentary, current smoker -Patient undergoing evaluation by known OR PCP, recently had echo, plan to get stress test and PFTs -Blood pressure well-controlled, euvolemic on exam, lungs clear to auscultation -Continue with aspirin and statin and ACEI -Strongly encouraged to quit smoking #h/o melanoma x3 last 2022 #Basal Cell Cancer #SCC -f/w [facility] dermat[facility] q3m -FLUOROURACIL 5% CREAM APPLY #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 - 08/2020- -s/p R CHOP 03/2021 (6 cycles) Echo with normal ejection fraction 50 to 55% (12/2020) ECHO 01/2024 - with non OR PCP report pending Cure rate with chemo around 60 to 70% Restaging CT scan 03/2021 no evidence for residual/recurrent disease in abdomen pelvis last scan 5 m ago with MARK f/w oncology with imaging q6m # Obesity -discussed diet, encouraged to restart daily walking #HTN: well controlled on ACEI #HL LDL 90 #CAD -mild scattered coronary calcification on CT scan -asymptomatic -c/w ROSUVASTATIN 40MG TAB -c/w LISINOPRIL 5MG #tobacco use: h/o >60PPDY, not ready to quit, with buproprion able to decrease smoking -declined referral to SCP -c/w buproprion #lung nodule -per pt last CT chest 09/2023 with oncology c/w annual screening with non OR provider #LUTS: U/A negative,per pt PSA cheked by non VA PCP pt self dc/d tamsulosin, LUTS not bothersome at this time #constipation: increase fiber intake, walking and hydration -start senna/docusate -start psyllium daily -miralax prn Healthcare maintenance: --Lipids: LDL 90 (11/2023) --Diabetes: A1c 5.4 (04/2023) --Colon CA (50-75): colonoscopy l J- 2006 diverticulosis 07/2020 Dr Yassine Mendoza colonoscopy with polypectomy (5mm R colon- removed TA) poor prep --> repeat colonoscopy in 6-12m colonoscopy 01/2024 [facility] -->2 day prep did not work --> pt has f/u with GI Dr Metzger, in 04/2024 --> using private health insurance --Lung CA: pt aware if he has surveillance CT C/A/P with oncology no need to have CT chest at the OR 08/2022 LDCT with oncology - no lung nodule f/u -continue with annual screening --PSA n/a --AAA (smoker/65): 2012 no AAA --Influenza (yrly): 2023 --COVID x5 --PCV13 2015 --PCV23: 2016 --HZV (>60yrs, x1): 2012 --RZV (>50yrs, x2): --TDAP: 2012 --Hep C screen: 2004 neg --HIV screen: --DEXA: --Advanced Directives: Return to clinic to see me in _9_ months, sooner PRN. Virtual ( ), F2F ( x ) ( x)fasting labs ordered prior to f/u routine -please obtain oncology note, last pcp note, colonoscopy Dr Yassine Carrera [facility]. thanks Medication Reconciliation: Outpatient: Has the patient been taking medications as documented in the EMLR? YES: The patient has been taking medications as documented in the EMLR. Essential Medication List for Review used to complete this medication reconciliation. INCLUDED IN THIS LIST: Alphabetical list of active outpatient prescriptions dispensed from this OR (local) and dispensed from another OR or [facility] facility (remote) as well as inpatient orders (local, pending and active), local clinic medications, locally documented non-VA medications, and local prescriptions that have or been discontinued in the past 90 days. - All changes in medications, including all non-VA/Herbal/OTC medications were entered into CPRS. - If there were any medications the patient should no longer take, they were discontinued. - The patient/caregiver was instructed to update this list, discard old lists, and take this list to the next appointment, whether with a VA or non-VA provider. HTN Assess for Elevated BP>=140/90: Repeat blood pressure: 135/85 Patient reported blood pressure Systolic BP 120 Diastolic BP 80 The patient's blood pressure is usually adequately controlled. No medication changes are indicated at this time. /haritha/ NATALIE MASON MD PHYSICIAN Signed: 02/07/2024 14:35 Receipt Acknowledged By: 02/08/2024 08:41 /haritha/ ALLISON HERNANDEZ 02/08/2024 ADDENDUM STATUS: COMPLETED REcords requested from the following: [facility] [place]hemotology [facility] [place]oscopy [facility] Dr. Metzger PCP Dr. Rios fax: [phone] /haritha/ ALLISON HERNANDEZ Signed: 02/08/2024 08:40 03/15/2024 ADDENDUM STATUS: COMPLETED Hem Onc note dated 02/26/2023 received, sent to [facility]. /haritha/ Carolina Reid RN Registered Nurse Signed: 03/15/2024 10:37 STEFAN MASON Jan 31, 2024 10:14 AM ADMINISTRATIVE NOT E: LOCAL TITLE: ADMINISTRATIVE NOTE STANDARD TITLE: ADMINISTRATIVE NOTE DATE OF NOTE: JAN 31, 2024@10:14 ENTRY DATE: JAN 31, 2024@10:14:59 AUTHOR: ALLISON SINGLETARY EXP COSIGNER: URGENCY: STATUS: COMPLETED [facility] [address] [place] [phone] * ADRIANA JOS[address] [place], [place] [address] Date: JAN 31, 2024 re: This is a reminder of your upcoming PCP appt with NATALIE MASON. Appointment Date: Jan@13:30 Appointment Type: In-person visit Fasting blood work NON fasting blood work CONFIRMED WITH THE Sincerely, Office Staff for: NATALIE MASON Primary Care Provider [facility] [address] [place] [address] [id number] T [phone] F [phone] Upcoming Appointments: 02/07/2024 13:30 CWM/SO/PACT 5 05/29/2024 14:00 NHM/OPT/VISUAL IMAGING 12/05/2024 11:00 NHM/OPTOMETRY/BORASKI APPOINTMENT ABBREVIATION RECINOS (SPOPC OR SO = [address]) (GOPC OR GO = [address]) (NHM or NO = [facility]) (VVC - Video Call) (Tel-X Telephone Visit) (TH - Telehealth) /haritha/ ALLISON HERNANDEZ Signed: 01/31/2024 10:15 ALLISON SINGLETARY [facility]
--- OUTSIDE RECORDS SUMMARY | 2024-06-04 06:20 | XMS_ITS ---
Author Organization [facility] Address [address] [place] [phone] Care Team Providers Care Kitchen Helper Name Role Phone Gabriel MONTGOMERY, Zachery Primary Care Provider Tootie Metzger Jr, Rian Unavailable [phone] Kathy Silverio M.D Unavailable Unavailable REASON FOR VISIT colon polyp Encounters Encounter Location Date Provider Diagnosis [facility] [address] [place] [phone] 06/04/2024 Rian Metzger Jr Plan Of Treatment No Information Progress Notes * ADRIANA JOSÉ JDOB:1945 (79 yo M)Acc No.[id number]:06/04/2024 Progress Notes Patient: ADRIANA CHAVEZ Provider: Kelly Metzger MD :1945 A ge:78 Y S ex:Male Date:06/04/2024 Address:[address] [place], [place] [phone] Pcp:Zachery Rios MD Subjective: * Chief Complaints: [...] MD Date: 0 06/04/2024 Generated for Salvador guajardo/Flori/eTmanindersmitting on: 0 11/27/2024 03:37 PM EDT
--- OUTSIDE RECORDS SUMMARY | 2024-09-19 09:45 | XMS_ITS ---
Author Organization [facility] Address [address] [place] [address] Care Team Providers Care Captain/Check Airman Name Role Phone Gabriel MONTGOMERY, Zachery Primary Care Provider Unava ilRaquel Callahan [phone] Encounters Encounter Location Date Provider Diagnosis [facility] [address] [place] [address] 09/19/2024 Raquel Smith Plan Of Treatment Next Appt Details Provider Name:Raquel castillo, 01/16/2025 11:15:00 AM, [address] [place], [address], Progress Notes * Robert MCINTYREDOB:1945 (79 yo M)Acc No.[id number]:09/19/2024 Progress Note Patient: Cruz BIRTORobert FLEMING Provider: Caty Smith DPM :1945 A ge:79 Y S ex:Male Date:09/19/2024 Address:[address] [place] [address] Pcp:Zachery Rios MD Subjective: * Chief Complaints: [...] 0 09/19/2024 Generated for Salvador guajardo/Flori/Yecenia on: 0 11/27/2024 03:38 PM EDT
--- OUTSIDE RECORDS SUMMARY | 2024-10-09 09:00 | XMS_ITS | Encounter Summary ---
Author Name [facility] [place] [facility] [place] Address [address] [place] [address] Care Team Providers Care Quality Review Specialist Name Role Phone NATALIE MASON Primary Care [...] PART A Jul 02, 2011 PART A [id number] ADRIANA JOSÉ PATIENT MEDICARE (WNR) MEDICARE (M) PART B Jul 02, 2011 PART B [id number] [phone] ADRIANA JOSÉ PATIENT MEDICARE (WNR) MEDICARE (M) PART A Jul 02, 2011 PART A [id number] [phone] ADRIANA JOSÉ PATIENT MEDICARE (WNR) MEDICARE (M) PART B Jul 02, 2011 PART B [id number] [phone] ADRIANA JOSÉ PATIENT MEDICARE (WNR) MEDICARE (M) PART A Jul 02, 2011 PART A [id number] [phone] ADRIANA JOSÉ PATIENT MEDICARE (WNR) MEDICARE (M) PART A Jul 02, 2011 PART A [id number] [phone] ADRIANA JOSÉ PATIENT MEDICARE (WNR) MEDICARE (M) PART B Jul 02, 2011 PART B [id number] ADRIANA JOSÉ PATIENT MEDICARE (WNR) MEDICARE (M) PART B Jul 02, 2011 PART B [id number] [phone] ADRIANA JOSÉ PATIENT [place] [employer] [employer] [facility] MEDIC ARE SUPPL EMENT Jul 02, 2011 [facility] [id number] [phone] ADRIANA JOSÉ PATIENT [place] [facility] [place] MEDIC ARE PREFE RRED Apr 02, 2015 [facility] [id number] ADRIANA JOSÉ PATIENT [place] [facility] SU[employer] [place] MEDIC ARE SUPPL EMENT Jul 02, 2011 [facility] [place] [id number] ADRIANA JOSÉ PATIENT Selected Encounter This section includes the information on record at [place] for the Encounter. Date/Time Encounter Type Encounter Description Reason Provider Source Oct 09, 2024 01:00 PM OFFICE O/P EST MOD 30 MIN PRIMARY CARE/MEDICINE ICD-10-CM R06.00 Dyspnea, unspecified NATALIE SMITH David Encounter Template Text not used by [facility] Assessments - Encounter Diagnoses This section includes the primary and secondary diagnoses documented for the Encounter. Date/Time Primary/Secondary Diagnosis Diagnosis Name Provider Source Oct 09, 2024 01:41 PM PRIMARY Dyspnea, unspecified NATALIE SMITH [facility] Oct 09, 2024 01:41 PM SECONDARY Athscl heart disease of [place] coronary artery w/o ang pctrs NATALIE SMITH [place] Oct 09, 2024 01:41 PM SECONDARY Basal cell carcinoma of skin of nose NATALIE SMITH [place] Oct 09, 2024 01:41 PM SECONDARY Benign prostatic hyperplasia without lower urinry tract symp NATALIE SMITH [place] Oct 09, 2024 01:41 PM SECONDARY Essential (primary) hypertension NATALIE SMITH [place] Oct 09, 2024 01:41 PM SECONDARY Malignant melanoma of skin, unspecified NATALIE MSITH [place] Oct 09, 2024 01:41 PM SECONDARY Mixed hyperlipidemia NATALIE SMITH [place] Oct 09, 2024 01:41 PM SECONDARY Nicotine dependence, cigarettes, uncomplicated NATALIE SMITH [place] Oct 09, 2024 01:41 PM SECONDARY Non-Hodgkin lymphoma, unspecified, unspecified site NATALIE SMITH [place] Oct 09, 2024 01:41 PM SECONDARY Overweight NATALIE SMITH [place] Oct 09, 2024 01:41 PM SECONDARY Squamous cell carcinoma of skin, unspecified NATALIE SMITH [place] Plan of Treatment: Future Appointments (+ 6 months) and Future Tests (+/- 45 days) The Plan of Treatment section includes future care activities for the [facility] This section includes future appointments and future orders which are active, pending or scheduled. Future Appointments This section includes appointments that were scheduled to occur 6 months from the date of the Encounter, up to a maximum of 20 appointments. The data comes from all [facility]. Appointment Date/Time Appointment Type Appointme nt Facility Name Nov 25, 2024 11:00 AM AMBULATORY - MEDICINE [facility] Jan 05, 2025 03:30 PM AMBULATORY - MEDICINE [facility] Active, Pending, and Scheduled Orders This section includes a listing of several types of active, pending, and scheduled orders, including clinic medications orders, diagnostic test orders, procedure orders and consult orders; where the start date of the order is 45 days before the date of the Encounter or 45 days after the date of theEncounter. The data comes from all [facility]. Test Date/Time Test Type Test Details Facility Name Oct 06, 2024 12:00 AM Laboratory - Chemi stry Order LIPID PANEL FASTING BLOOD (SST-SERUM) [facility] Oct 06, 2024 12:00 AM Laboratory - Chemi stry Order BASIC METABOLIC PANEL (fasting) BLOOD (SST-SERUM) [facility] Oct 06, 2024 12:00 AM Laboratory - Chemi stry Order LIVER FUNCTION BLOOD (SST-SERUM) [facility] Oct 06, 2024 12:00 AM Laboratory - Chemi stry Order CBC AND DIFF (AUTO) BLOOD (LAV-BLOOD) [facility] Oct 06, 2024 12:00 AM Laboratory - Chemi stry Order HEMOGLOBIN A1C PANEL BLOOD (LAV-BLOOD) [facility] Oct 06, 2024 12:00 AM Laboratory - Chemi stry Order TSH BLOOD (SST-SERUM) [facility] Oct 06, 2024 12:00 AM Laboratory - Chemi stry Order VITAMIN D (25-OH) BLOOD (SST-SERUM) [facility] Vital Signs: All taken on the encounter date This section contains inpatient and outpatient Vital Signs collected on the date of the Encounter. Date/Time Temperature Pulse Blood Pressure Respiratory Rate SP02 Pain Height Weight Body Mass Index Source Oct 09, 2024 01:09 PM 98.7 F 92 /min 135/80 mm[Hg] 96 % 209.6 lb 30 [facility] IELD Social History: Smoking Status (Most current) [...] 13, 2021 02:00 PM VA-TOBACCO FORMER USER [facility] Tobacco Use History This section includes a history of the smoking, or tobacco-related health factors, that were collected on or before the date of the Encounter. The data comes from the [place] facility where the Encounter took place. Date/Time Smoking Status/Tobacco Use Comment F acility May 13, 2021 02:00 PM VA-TOBACCO QUIT 1 TO < 5 YRS [facility] May 04, 2020 10:00 AM VA-TOBACCO USE 5 TO 15 YEARS [facility] May 04, 2020 10:00 AM VA-TOBACCO USE ADVICE [facility] May 04, 2020 10:00 AM VA-TOBACCO USE TRACK MANAGER NO [facility] May 04, 2020 10:00 AM VA-TOBACCO USE MED NO [facility] May 04, 2020 10:00 AM VA-TOBACCO USE WI 30 MIN OF [facility] May 04, 2020 10:00 AM VA-TOBACCO USER EVERY DAY [facility] Apr 29, 2018 10:23 AM VA-TOBACCO USE 30 YEARS OR MORE [facility] Apr 29, 2018 10:23 AM VA-TOBACCO USE ADVICE [facility] Apr 29, 2018 10:23 AM VA-TOBACCO USE TRACK MANAGER NO [place] Apr 29, 2018 10:23 AM VA-TOBACCO USE MED NO [facility] Apr 29, 2018 10:23 AM VA-TOBACCO USE WI 30 MIN OF [facility] Apr 29, 2018 10:23 AM VA-TOBACCO USER EVERY DAY [facility] Mar 22, 2018 11:15 AM VA-TOBACCO FORMER USER [facility] Mar 22, 2018 11:15 AM VA-TOBACCO QUIT 1 TO < 5 YRS [facility] Apr 09, 2017 10:22 AM QUIT TOBACCO USE I N PAST YEAR reports quitting 4 months ago [facility] Mar 21, 2016 01:22 PM CURRENT SMOKER [facility] Mar 21, 2016 01:22 PM V1-PT NOT INTEREST ED IN QUIT TOBACCO USE [facility] Mar 11, 2015 10:58 AM CURRENT SMOKER 6 cigarettes/d [facility] Mar 11, 2015 10:58 AM V1-PT DECLINES REF TO TOBACCO CESS [facility] Mar 11, 2015 10:58 AM V1-PT DECLINES TOB ACCO CESSATION [facility] Mar 11, 2015 10:58 AM V1-PT THINKING ABO UT QUIT TOBACCO USE [facility] Mar 19, 2014 10:41 AM CURRENT SMOKER 5-6 cigarettes per day [facility] Mar 19, 2014 10:41 AM V1-PT DECLINES REF TO TOBACCO CESS [facility] Mar 19, 2014 10:41 AM V1-PT DECLINES TOB ACCO CESSATION [facility] Mar 19, 2014 10:41 AM V1-PT THINKING ABO UT QUIT TOBACCO USE [facility] Jun 02, 2013 02:03 PM V1-PT THINKING ABO UT QUIT TOBACCO USE [facility] Nov 29, 2012 01:32 PM CURRENT SMOKER Pt stated that he smokes about 6 cigaretts a day [place] Nov 29, 2012 01:32 PM V1-PT DECLINES REF TO TOBACCO CESS [facility] Nov 29, 2012 01:32 PM V1-PT DECLINES TOB ACCO CESSATION [facility] Nov 29, 2012 01:32 PM V1-PT THINKING ABO UT QUIT TOBACCO USE [facility] Apr 30, 2012 01:32 PM V1-PT THINKING ABO UT QUIT TOBACCO USE [facility] Apr 30, 2012 01:32 PM V1-TOBACCO CESS ME DS NOT PRESCRIBED PCP WILL ORDER THIS [facility] Jun 01, 2011 08:37 AM CURRENT SMOKER Pt. states hi smokes 5-6 cigerettes a day. [facility] Jun 01, 2011 08:37 AM V1-PT DECLINES REF TO TOBACCO CESS [facility] Jun 01, 2011 08:37 AM V1-PT NOT INTEREST ED IN QUIT TOBACCO USE [facility] Apr 27, 2010 09:07 AM CURRENT SMOKER smoker for 50 yrs...smokes 6-8 cigarettes per day [facility] Apr 27, 2010 09:07 AM V1-PT DECLINES REF TO TOBACCO CESS [facility] Apr 27, 2010 09:07 AM V1-PT DECLINES TOB ACCO CESSATION MEDS [place] Apr 27, 2010 09:07 AM V1-PT NOT INTEREST ED IN QUIT TOBACCO USE [facility] Sep 13, 2009 10:38 AM V1-PT DECLINES REF TO TOBACCO CESS [facility] Sep 13, 2009 10:38 AM V1-PT THINKING ABO UT QUIT TOBACCO USE [facility] Mar 09, 2009 01:15 PM CURRENT SMOKER 10 cigarettes per day [facility] Mar 09, 2009 01:15 PM V1-PT DECLINES REF TO TOBACCO CESS [facility] Mar 09, 2009 01:15 PM V1-PT THINKING ABO UT QUIT TOBACCO USE [facility] Feb 04, 2008 12:51 PM CURRENT SMOKER Patient states he smokes a pack of ciggs per day. [facility] Feb 04, 2008 12:51 PM V1-PT DECLINES REF TO TOBACCO CESS [facility] Feb 04, 2008 12:51 PM V1-PT READY TO RAFA T TOBACCO USE [facility] Mar 14, 2007 01:11 PM V1-PT DECLINES REF TO TOBACCO CESS [facility] Mar 14, 2007 01:11 PM V1-PT READY TO RAFA T TOBACCO USE [facility] Jun 19, 2006 08:10 AM CURRENT SMOKER counselled [facility] Jun 13, 2005 08:55 AM QUIT TOBACCO USE I N PAST YEAR continue bupropion [facility] Nov 17, 2004 09:20 AM CURRENT SMOKER 1 pack a day [facility] Jun 23, 2003 02:22 PM CURRENT SMOKER 1ppd x 30yrs [facility] Encounter Notes: All associated encounter notes This section contains the clinical notes associated to the Encounter. Date/Time Encounter Note(s) Provider Source Oct 09, 2024 01:00 PM PHYSICIAN NOTE: LOCAL TITLE: MD NOTE STANDARD TITLE: PHYSICIAN NOTE DATE OF NOTE: OCT 09, 2024@13:00 ENTRY DATE: OCT 09, 2024@00:56:37 AUTHOR: Dell MASON EXP COSIGNER: URGENCY: STATUS: COMPLETED Pt is 79 y/o M current smoker with PMH of obesity, HTN, HL, prediabetes, Skin cancer/melanoma, [place] lymphoma s/p small bowel resection - 08/2020- PCP is Dr Zachery Rios in [place] - q3-4m Last visit 02/2024 Other providers: -eye [place] -podiatry [place] -dermatology - [facility] - q4m -hem/onc Dr Prakash at [facility] q6m -GI Dr. Metzger pt reports doing well, has no new concerns #skin cancer, melanoma follow-up of his skin cancer, q4m with dermatology -h/o BCC scalp h/o melanoma nasal x 3 (last 2022 nasal s/p removal) #NHL s/p small bowel resection 2020 completed chemotherapy R CHOP 03/2021 - less energy since chemo f/w hem/onc Last ECHO 12/2020 EF 50-55% Surveillance CT scan (q6m) last 08/2024 per patient with no evidence of disease #chronic GARCIA since chemo per pt oncology referred him to cardiology and he had negative ECHO,EKG, now referred to pulmonary denies cough, fever, chills, ns -denies LE edema, orthopnea, PND denies any CP, palpitations he can walk long distance but slowly, limited by leg fatigue and GARCIA #HTN/HL compliant with medications denies CP/SOB/palpitations/dizziness /claudication reports easily get tired, GARCIA as above pt with long h/o tobacco, still smoking 4 cig per day denies h/o TN, CVA #Overweight BMI 30 stable weight Appetite [...] Light tobacco smoker PAST SURGICAL HISTORY: -- s/p R cataract surgery 2024 -- eye surgery - retina detachment -- s/p nasal melanoma excision x3, last 2022 f/b reconstructive surgery and skin grafting -- s/p small bowel resection - 08/2020- ALLERGIES:NKDA MEDICATIONS: ==NON ASA ==ROSUVASTATIN 40MG ==LISINOPRIL 5MG ==Non-VA MULTIVITAMIN/MINERALS ==MULTIVIT/OPHTH AREDS2/LUTE/ZEAX CAP/ ==BACLOFEN 20MG TAB TID rarely ==BUPROPION HCL 150MG 12HR SA ONCE DAILY ==POLYETHYLENE GLYCOL 3350 ORA ==DOCUSATE NA 50MG/SENNOSIDES 8.6MG FAMILY HISTORY: --DM: no --Cancer:-- family history of melanoma mother cervical cancer - dies in early 30s Brother colon cancer in 70s --TN: no --CVA:no --Mental Health/addiction: --Other:father of PNA SOCIAL HISTORY: --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 --Cohabitation: , lives alone, has GF of 30y --Children: 2 adult children --Diet: red meat 1-2/week, salad daily, ex was claims configuration analyst likes carbs/sugar/bread --Exercise:sedentary, more active during the summer, active with yard work --Caffeine: decaf --EtOH: rare 3 beers/port wine /year --Tob: current smoker, up to 4 cig/day, h/o 60 PPDY last 10 years cut down, since on welbutrin --MJ:denies --Illicits:denies --Sexual activity:one partner - GF --Eye: UTD --Dental: implants/dentures --Hospitalizations: 08/2020 bowel resection ROS: Constitutional: no fever/no chills, no ns Eyes: no decreased vision/blurry vision Ears/Nose/Throat: no hearing change Respiratory: no cough/wheezing/SOB Cardiovascular: no CP /palpitations/le edema Gastrointestinal: no abdominal pain/bloody/black stools/no diarrhea, constipation :no dysuria/hematuria/trouble voiding frequency, urgency, hesitancy mild, nocturia x1-2x MSK: chronic LBP currently asymptomatic - last falre 2 months ago Neuro: no dizziness/H/A Skin: no pruritus/rash PHYSICAL EXAM: Vital Signs: Blood Pressure: 135/80 (10/09/2024 13:09) 143/81 (02/07/2024 13:44) 134/77 (04/09/2023 10:58) 139/80 (05/11/2022 10:20) 125/87 (05/13/2021 14:37) Pulse: 92 (10/09/2024 13:09) Respiration: 16 Temperature: 98.7 F [37.1 C] (10/09/2024 13:09) BMI:30 Patient Weight: 209.6 lb [95.07 kg] (10/09/2024 13:09) 213.8 lb [96.98 kg] (02/07/2024 13:44) 207.8 lb [94.26 kg] (04/09/2023 10:58) 206.9 lb [93.85 kg] (05/11/2022 10:20) 218.6 lb [99.4 kg] (05/01/2019 08:59) 202 lb [91.8 kg] (05/13/2021 14:37) GA: NAD, AOX3 NECK: supple, no JVD, no LAD, no thyromegaly or masses, CVS: RRR Lungs: CTA b/l ABD:Soft,NT/ND EXT: no edema Ambulates without assistance LABORATORY: Aug Location of lab tests: [facility] BMP: GLUCOSE 115 BUN 14 CREAT 1.09 eGFR >60 SODIUM 141 K+ 3.7 CL 111 CO2 25 CBC: WBC 6.8 RBC 4.46 HGB 14.5 HCT 41.9 MCV 93.9 MCH 32.5 MCHC 34.6 RDW 13.5 PLT 164 LYMPH % 21.1 MONO % 8.8 LIVER PANEL: AST 23 IMAGING #10/2021 LDCT Left upper lobe 6.6 [...] without evidence of leakage. 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 - 08/2020- -s/p R CHOP 03/2021 (6 cycles) Echo with normal ejection fraction 50 to 55% (12/2020) ECHO 01/2024 - with non [facility] PCP per pt unremarkable Cure rate with chemo around 60 to 70% Restaging CT scan 03/2021 no evidence for residual/recurrent disease in abdomen pelvis last scan 08/2024 ago with MARK f/w oncology with imaging q6m # Obesity -discussed diet, encouraged to increase physical activity #HTN: well controlled on ACEI #HL LDL 90 #CAD -mild scattered coronary calcification on CT scan -asymptomatic -c/w ROSUVASTATIN 40MG TAB -c/w LISINOPRIL 5MG #tobacco use: h/o >60PPDY, not ready to quit, with buproprion able to decrease smoking -declined referral to [facility] -c/w buproprion #lung nodule c/w annual screening with non [place] provider #LUTS: per pt PSA cheked by non [facility] PCP LUTS not bothersome at this time off of flomax #constipation:improved with increased fiber intake, walking and hydration but still has to take senna/docusate, psyllium and miralax -will schedule colonosocpy with GI non [facility] due 12/2024 Healthcare maintenance: --Lipids: LDL 90 (11/2023) --Diabetes: A1c 5.4 (04/2023) --Colon CA (50-75): colonoscopy l J- 2006 diverticulosis 07/2020 Dr Yassine Mendoza colonoscopy with polypectomy (5mm R colon- removed TA) poor prep --> repeat colonoscopy in 6-12m colonoscopy 01/2024 [facility] -->2 day prep did not work --> f/u with GI Dr Metzger, repeat colonoscopy 12/2024 --> using private health insurance --Lung CA: pt aware if he has surveillance CT C/A/P with oncology no need to have CT chest at the [place] --PSA n/a --AAA (smoker/65): 2012 no AAA --Influenza (yrly): 2023 --COVID x5 --PCV13 2015 --PCV23: 2016 --HZV (>60yrs, x1): 2012 --RZV (>50yrs, x2): --TDAP: 2012 --Hep C screen: 2004 neg --HIV screen: --DEXA: --Advanced Directives: Return to clinic to see me in _9_ months, sooner PRN. Virtual ( ), F2F ( x ) ( x)fasting labs ordered prior to f/u routine please obtain last notes prior to next visit thx [facility] Oncology/hematology PCP Dr. Rios fax: [phone] Follow Up Colonoscopy: Colonoscopy is due based on information available to this reminder. Patient has arranged or is choosing to arrange a Colonoscopy independent of and w/out assistance from this [place]. Patient declined screening/surveillance. Comment: will get colonoscopy using private insurance Melanoma Follow-up: Patient is followed by Dermatology OUTSIDE this [facility], for Melanoma F/U. Last Visit: Jul, 2024 ? Exact date is unknown Location: Outside Healthcare Provider Prognosis: [facility] good , Q4m Medication Reconciliation: Outpatient: Has the patient been taking medications as documented in the EMLR? YES: The patient has been taking medications as documented in the EMLR. Essential Medication List for Review used to complete this medication reconciliation. INCLUDED IN THIS LIST: Alphabetical list of active outpatient prescriptions dispensed from this [place] (local) and dispensed from another [place] or DoD facility (remote) as well as [...] whether with a VA or non-VA provider. Initial Lung Cancer Screen (Provider): No clinical exclusions, patient is a current candidate for the lung cancer screening program. Patient declines lung cancer screening THIS YEAR ONLY. Lung cancer screening information provided. Comment: f/w non [facility] Patient currently uses cigarettes and does not want assistance with smoking cessation at this time. /haritha/ NATALIE MASON MD PHYSICIAN Signed: 10/09/2024 13:41 Receipt Acknowledged By: 10/13/2024 14:43 /haritha/ TONO MASON,STEFAN GUPTA
--- OUTSIDE RECORDS SUMMARY | 2024-11-27 10:28 | XMS_ITS | Continuity of Care Document ---
Author Name [facility] Organization [facility] Care Team Providers Care Evp Global Product Leadership Name Role Phone [facility] Unavailable Unavailable Problems Combined list of problems [...] ZACARIAS Comment: Right IJ Port-A-Cath in place [facility] Basal cell carcinoma of face (SNOMED CT 612857040) Active Condition [facility] [place] [facility] Benign essential hypertension (SNOMED CT 2369079) Active Condition [facility] Benign Prostatic Hypertrophy without Outflow Obstruction (SCT 321760996) Active Condition [facility] Body mass index 25-29 - overweight Active Condition [facility] Chronic constipation Active Condition [facility] Coronary arteriosclerosis Active Condition [facility] DEPRESSIVE DISORDER Active Condition [facility] Drug Hypersensitivity Active Condition Mar 14 7 Entered By: ALEX LY Comment: NSAID (Naprosyn) hypersensivity [facility] [place] [facility] family history of melanoma Active Condition [facility] H/O Malignant melanoma Active Condition May 04, 2020 Entered By: NATALIE ZACARIAS Comment: nose x2, s/p surgery- f/w [place] dermatology [facility] HEMATURIA Active Condition [facility] History of adenomatous polyp of colon Active Condition [facility] Hyperlipidemia (SNOMED CT 92057767) Active Condition [facility] Impaired fasting glucose (SNOMED CT 487730930) Active Condition [facility] Light tobacco smoker (SNOMED CT 860349700712126) Active Condition [facility] Non-Hodgkin lymphoma Active Condition May 15, 2021 Entered By: NATALIE ZACARIAS Comment: 08/2020 Diffuse large B-cell lymphomaFeb 2021 Entered By: NATALIE ZACARIAS Comment: s/p small bowel resection 08/2020Feb 2021 Entered By: NATALIE ZACARIAS Comment: s/p R CHOP -6 cycles completed 03/2021Feb 2021 Entered By: NATALIE ZACARIAS Comment: f/w hem/onc [facility] McFeb 2021 Entered By: NATALIE ZACARIAS Comment: R IJ vein- [facility] Osteoarthrosis, unspecified whether generalized or localized, involving unspecif Active Condition Oct 31 Entered By: CLAIRE BRISCOE Comment: bilateral knees[mild DJD] unrelated to service [facility] Rotator cuff (capsule) sprain or strain (ICD-9-CM 840.4) Active Condition [facility] Spondylosis Active Condition Jan 11, 2005 Entered By: DALE GUSTAFSON Comment: spondylolysis [facility] Squamous cell carcinoma of skin Active Condition [facility] [place] Unspecified internal derangement of knee (ICD-9-CM 717.9) Active Condition [facility] Elevated blood pressure reading without diagnosis of hypertension (ICD-9-CM 796. Inactive Condition 03/11/2015 [facility] Hypersensitivity reaction (ICD-9-CM 995.3) Inactive Condition 03/29/2014 [facility] Osteoarthrosis involving the knee (ICD-9-CM 715.98) Inactive Condition 08/10/2015 [facility] Diagnosis: ICD-10-CM R06.00 Dyspnea, unspecified Active Diagnosis [facility] Diagnosis: ICD-10-CM H40.013 Open angle with borderline findings, low risk, bilateral Active Diagnosis [facility] Diagnosis: ICD-10-CM H40.052 Ocular hypertension, left eye Active Diagnosis [facility] Diagnosis: ICD-10-CM Z46.0 Encounter for fit/adjst of spectacles and contact lenses Active Diagnosis [facility] Diagnosis: ICD-10-CM Z00.8 Encounter for other general examination Active Diagnosis [facility] Medications Combined list of outpatient medications from Department of Defense and Veterans Affairs facilities.Medications provided include 1) outpatient medications from the last 15 months, and 2) patient-reported medications. Medication Details Route Status Patient Instructions Prescription Expires Prescription Number Last Dispense Date Ordering Provider Order Date Order Qty Source ASPIRIN 81MG TAB,EC TAKE ONE TABLET BY MOUTH ONCE DAILY ORAL ACTIVE NATALIE JACOBO M 2023 [place] BACLOFEN 20MG TAB TAKE ONE TABLET BY MOUTH THREE TIMES DAILY NEEDED FOR MUSCLE RIGIDITY ORAL ACTIVE 08/21/2025 [id number] 5 NATALIE JACOBO 2024 270 [place] BRIMONIDINE 0.2%/BRINZO LAMIDE 1% SUSP,OPH INSTILL 1 DROP INTO THE LEFT EYE THREE TIMES A DAY OPHTHA LMIC ACTIVE 07/08/2025 [id number] 5 Mike BAKER NDREW E 2024 [facility] BRIMONIDINE 0.2%/BRINZO LAMIDE 1% SUSP,OPH INSTILL 1 DROP INTO THE LEFT EYE THREE TIMES A DAY OPHTHA LMIC DISCONT INUED 06/25/2024 [id number] 5 Mike BAKER NDREW E 2024 8 [facility] [place] BRIMONIDINE 0.2%/BRINZO LAMIDE 1% SUSP,OPH INSTILL 1 DROP INTO THE LEFT EYE THREE TIMES A DAY OPHTHA LMIC DISCONT INUED 05/11/2024 [id number] EMELYN GOMEZ P 2024 8 [facility] BUPROPION HCL 150MG 12HR TAB,SA TAKE ONE TABLET BY MOUTH ONCE DAILY ORAL ACTIVE 05/31/2025 [id number] 5 Gregory TSANG 2024 90 [place] BUPROPION HCL 150MG 12HR TAB,SA TAKE ONE TABLET BY MOUTH ONCE DAILY ORAL DISCONT INUED 05/13/2024 [id number] 4 NATALIE JACOBO M 2023 90 [place] DOCUSATE NA 50MG/SENNOS IDES 8.6MG TAB TAKE 1 TABLET BY MOUTH ONCE DAILY FOR CONSTIPA TION ORAL ACTIVE 02/07/2025 [id number] 5 NATALIE JACOBO M 2023 100 [place] KETOROLAC TROMETHAMIN E 0.5% SOLN,OPH INSTILL 1 DROP INTO THE RIGHT EYE THREE TIMES A DAY FOR 3 WEEKS FOLLOWIN G CATARACT SURGERY OPHTHA LMIC ACTIVE 02/08/2025 [id number] SAMRA LAUGHLIN R 2023 5 [facility] LISINOPRIL 5MG TAB TAKE ONE TABLET BY MOUTH ONCE DAILY TO CONTROL BLOOD PRESSURE ORAL ACTIVE 10/10/2025 [id number] 5 NATALIE JACOBO M 2024 90 [place] LISINOPRIL 5MG TAB TAKE ONE TABLET BY MOUTH ONCE DAILY TO CONTROL BLOOD PRESSURE ORAL DISCONT INUED 11/18/2024 [id number] 5 NATALIE JACOBO M 2024 60 [place] LISINOPRIL 5MG TAB TAKE ONE TABLET BY MOUTH ONCE DAILY TO CONTROL BLOOD PRESSURE ORAL DISCONT INUED 01/04/2025 [id number] 5 RA BRENNON ARCEO 2023 90 [facility] LISINOPRIL 5MG TAB TAKE ONE TABLET BY MOUTH ONCE DAILY TO CONTROL BLOOD PRESSURE ORAL DISCONT INUED 03/29/2024 [id number] 4 JORGE BYRD 2022 90 [place] MULTIVIT/OP HTH AREDS2/LUTE IN/ZEAXANTH IN CAP/TAB TAKE 1 CAPSULE BY MOUTH TWICE DAILY IN THE MORNING AND EVENING, WITH FOOD ORAL ACTIVE 06/30/2025 [id number] 5 NATALIE JACOBO 2024 120 [facility] MULTIVIT/OP HTH AREDS2/LUTE IN/ZEAXANTH IN CAP/TAB TAKE 1 CAPSULE BY MOUTH TWICE DAILY IN THE MORNING AND EVENING, WITH FOOD ORAL DISCONT INUED 06/07/2024 [id number] MERHAR,NO AH B 2023 120 [facility] [place] [facility] [facility] MULTIVITAMI NS W/MINERALS TAB TAKE ONE TABLET BY MOUTH ORAL ACTIVE DASHA GUSTAFSON 2004 [place] POLYETHYLEN E GLYCOL 3350 PWDR,ORAL TAKE 17 GRAMS(FI LL CAP TO 17GM LINE) BY MOUTH ONCE DAILY NEEDED FOR CONSTIPA TION [MIX WITH 4 TO 8OZ. OF BEVERAGE ] ORAL ACTIVE 09/17/2025 [id number] 5 NATALIE JACOBO 2024 510 [place] PREDNISOLON E ACETATE 1% SUSP,OPH INSTILL 1 DROP INTO THE RIGHT EYE FOUR TIMES A DAY FOR 3 WEEKS FOLLOWIN G SURGERY. SHAKE WELL. OPHTHA LMIC ACTIVE 02/08/2025 [id number] SAMRA LAUGHLIN R 2023 5 [facility] [place] [facility] [facility] ROSUVASTATI N CA 40MG TAB TAKE ONE TABLET BY MOUTH ONCE DAILY FOR CHOLESTE ROL REPLAC ES ATORVAST ATIN ORAL ACTIVE 10/10/2025 [id number] 5 NATALIE JACOBO 2024 90 [place] ROSUVASTATI N CA 40MG TAB TAKE ONE TABLET BY MOUTH ONCE DAILY FOR CHOLESTE ROL REPLAC ES ATORVAST ATIN ORAL DISCONT INUED 02/07/2025 [id number] 5 NATALIE JACOBO 2023 90 [place] ROSUVASTATI N CA 40MG TAB TAKE ONE TABLET BY MOUTH ONCE DAILY FOR CHOLESTE ROL REPLAC ES ATORVAST ATIN ORAL DISCONT INUED 05/28/2024 [id number] NATALIE JACOBO 2023 90 [place] Immunizations Combined list of available immunizations from the Department of Defense and Veterans Affairs facilities. Immunization Series Date Given Administered By Site Reaction Lot Number CVX Code Drug Rn Unit Manager Status Comments Source INFLUENZA, UNSPECIFIED FORMULATION 2023 88 complet ed HISTORICA L INFORMATI ON - SOURCE UNSPECIFI ED, [facility] INFLUENZA, UNSPECIFIED FORMULATION 2022 88 complet ed HISTORICA L INFORMATI ON - SOURCE [facility]IFI [facility] INFLUENZA, UNSPECIFIED FORMULATION 2021 88 complet ed HISTORICA L INFORMATI ON - SOURCE UNSPECIFI ED, [facility] COVID-19 (MODERNA), MRNA, LNP-S, BIVALENT BOOSTER, PF, 50 MCG/0.5 ML OR 25MCG/0.25 ML DOSE 2021 229 complet ed HISTORICA L INFORMATI ON - SOURCE UNSPECIFI ED, [facility] COVID-19 (MODERNA), MRNA, LNP-S, PF, 100 MCG/0.5ML DOSE OR 50 MCG/0.25ML DOSE 3 2021 207 complet ed HISTORICA L INFORMATI ON - SOURCE UNSPECIFI ED, [facility] COVID-19 (MODERNA), MRNA, LNP-S, PF, 100 MCG OR 50 MCG DOSE 3 2020 207 complet ed [facility] INFLUENZA, UNSPECIFIED FORMULATION 2020 88 complet ed [facility] COVID-19 (MODERNA), MRNA, LNP-S, PF, 100 MCG/0.5 ML DOSE 2 2020 207 complet ed MOD; [id number]; 1 [facility] [place] COVID-19 (MODERNA), MRNA, LNP-S, PF, 100 MCG/0.5 ML DOSE 1 2020 207 complet ed MOD; [id number]; 1 [place] ZOSTER RECOMBINANT 2 2020 [...] Mar 27, 2023 03:03 PM Reporting Lab: [address] [address] Performing Lab: [address] [address] [place] HEMOGLOBI N A1C PANEL HEMOGLOBIN [...] Mar 27, 2023 03:03 PM Reporting Lab: [address] [address] Performing Lab: [address] [address] [place] LIPID PANEL FASTING CHOLESTEROL [MASS/VOLUM E] IN SERUM OR PLASMA 174 mg/dL 04/09 Specimen Type: SERUM Comment: Hemolysis present analysis cannot be performed. Hemolysis present may falsly elevate Potassium Total and Direct Bili, Iron, AST, %Fe. Ordering Provider: MELVINA MOON Report Released Date/Time: Mar 27, 2023 03:03 PM Reporting Lab: [address] [address] Performing Lab: [address] [address] [place] LIPID PANEL FASTING TRIGLYCERID E [MASS/VOLUM E] IN SERUM OR PLASMA 91 mg/dL 0 - 150 04/09 Specimen Type: SERUM Comment: Hemolysis present analysis cannot be performed. Hemolysis present may falsly elevate Potassium Total and Direct Bili, Iron, AST, %Fe. Ordering Provider: MELVINA MOON Report Released Date/Time: Mar 27, 2023 03:03 PM Reporting Lab: [address] [address] Performing Lab: [address] [address] [place] LIPID PANEL FASTING CHOLESTEROL IN LDL [MASS/VOLUM E] IN SERUM OR PLASMA BY CALCULATION 112 mg/dL 0 - 129 04/09 Specimen Type: SERUM Comment: Hemolysis present analysis cannot be performed. Hemolysis present may falsly elevate Potassium Total and Direct Bili, Iron, AST, %Fe. Ordering Provider: MELVINA MOON Report Released Date/Time: Mar 27, 2023 03:03 PM Reporting Lab: [address] [address] Performing Lab: [address] [address] [facility] FASTING CHOLESTEROL .TOTAL/CHOL ESTEROL IN HDL [MASS RATIO] IN SERUM OR PLASMA 4.0 04/09 Specimen Type: SERUM Comment: Hemolysis present analysis cannot be performed. Hemolysis present may falsly elevate Potassium Total and Direct Bili, Iron, AST, %Fe. Ordering Provider: MELVINA MOON Report Released Date/Time: Mar 27, 2023 03:03 PM Reporting Lab: [facility] [address] [address] Performing Lab: [facility] [address] [address] [facility] FASTING CHOLESTEROL IN HDL [MASS/VOLUM E] IN SERUM OR PLASMA 44 mg/dL 40 - 60 04/09 Specimen Type: SERUM Comment: Hemolysis present analysis cannot be performed. Hemolysis present may falsly elevate Potassium Total and Direct Bili, Iron, AST, %Fe. Ordering Provider: MELVINA MOON Report Released Date/Time: Mar 27, 2023 03:03 PM Reporting Lab: [address] [address] Performing Lab: [address] [address] [place] LIVER FUNCTION PROTEIN [MASS/VOLUM E] IN SERUM OR PLASMA 6.8 g/dL 6.0 - 8.3 04/09 Specimen Type: SERUM Comment: Hemolysis present analysis cannot be performed. Hemolysis present may falsly elevate Potassium Total and Direct Bili, Iron, AST, %Fe. Ordering Provider: MELVINA MOON Report Released Date/Time: Mar 27, 2023 03:03 PM Reporting Lab: [address] [address] Performing Lab: [address] [address] [facility] ALBUMIN [MASS/VOLUM E] IN SERUM OR PLASMA 3.8 g/dL 3.5 - 5.0 04/09 Specimen Type: SERUM Comment: Hemolysis present analysis cannot be performed. Hemolysis present may falsly elevate Potassium Total and Direct Bili, Iron, AST, %Fe. Ordering Provider: MELVINA MOON Report Released Date/Time: Mar 27, 2023 03:03 PM Reporting Lab: [address] [address] Performing Lab: [address] [address] [facility] LIVER FUNCTION ALKALINE PHOSPHATASE [ENZYMATIC ACTIVITY/VO LUME] IN SERUM OR PLASMA 101 U/L 40 - 150 04/09 Specimen Type: SERUM Comment: Hemolysis present analysis cannot be performed. Hemolysis present may falsly elevate Potassium Total and Direct Bili, Iron, AST, %Fe. Ordering Provider: MELVINA MOON Report Released Date/Time: Mar 27, 2023 03:03 PM Reporting Lab: [address] [address] Performing Lab: [address] [address] [facility] LIVER FUNCTION ASPARTATE AMINOTRANSF ERASE [ENZYMATIC ACTIVITY/VO LUME] IN SERUM OR PLASMA 20 U/L 5 - 34 04/09 Specimen Type: SERUM Comment: Hemolysis present analysis cannot be performed. Hemolysis present may falsly elevate Potassium Total and Direct Bili, Iron, AST, %Fe. Ordering Provider: MELVINA MOON Report Released Date/Time: Mar 27, 2023 03:03 PM Reporting Lab: [address] [address] Performing Lab: [address] [address] [place], [place] [address] LIVER FUNCTION ALANINE AMINOTRANSF ERASE [ENZYMATIC ACTIVITY/VO LUME] IN SERUM OR PLASMA 23 U/L 04/09 Specimen Type: SERUM Comment: Hemolysis present analysis cannot be performed. Hemolysis present may falsly elevate Potassium Total and Direct Bili, Iron, AST, %Fe. Ordering Provider: MELVINA MOON Report Released Date/Time: Mar 27, 2023 03:03 PM Reporting Lab: [address] [address] Performing Lab: [address] [phone] [place], [place] [address] LIVER FUNCTION BILIRUBIN.T OTAL [MASS/VOLUM E] IN SERUM OR PLASMA commen tmg/dL 0.2 - 1.2 04/09 Specimen Type: SERUM Comment: Hemolysis present analysis cannot be performed. Hemolysis present may falsly elevate Potassium Total and Direct Bili, Iron, AST, %Fe. Ordering Provider: MELVINA MOON Report Released Date/Time: Mar 27, 2023 03:03 PM Reporting Lab: [address] [address] Performing Lab: [address] [address] [place], [place] [address] BASIC METABOLIC PANEL (fasting) UREA NITROGEN [MASS/VOLUM E] IN SERUM OR PLASMA 19 mg/dL 7 - 25 04/09 Specimen Type: SERUM Comment: Hemolysis present analysis cannot be performed. Hemolysis present may falsly elevate Potassium Total and Direct Bili, Iron, AST, %Fe. Ordering Provider: MELVINA MOON Report Released Date/Time: Mar 27, 2023 03:03 PM Reporting Lab: [place] [address] Performing Lab: [facility] [address] [address] [facility] BASIC METABOLIC PANEL (fasting) GLUCOSE [MASS/VOLUM E] IN SERUM OR PLASMA 84 mg/dL 65 - 100 04/09 Specimen Type: SERUM Comment: Hemolysis present analysis cannot be performed. Hemolysis present may falsly elevate Potassium Total and Direct Bili, Iron, AST, %Fe. Ordering Provider: MELVINA MOON Report Released Date/Time: Mar 27, 2023 03:03 PM Reporting Lab: [address] [address] Performing Lab: [address] [address] [facility] BASIC METABOLIC PANEL (fasting) SODIUM [MOLES/VOLU ME] IN SERUM OR PLASMA 142 mmol/L 135 - 145 04/09 Specimen Type: SERUM Comment: Hemolysis present analysis cannot be performed. Hemolysis present may falsly elevate Potassium Total and Direct Bili, Iron, AST, %Fe. Ordering Provider: MELVINA MOON Report Released Date/Time: Mar 27, 2023 03:03 PM Reporting Lab: [address] [address] Performing Lab: [address] [address] [facility] BAS[facility] METABOLIC PANEL (fasting) POTASSIUM [MOLES/VOLU ME] IN SERUM OR PLASMA 4.0 mmol/L 3.5 - 5.0 04/09 Specimen Type: SERUM Comment: Hemolysis present analysis cannot be performed. Hemolysis present may falsly elevate Potassium Total and Direct Bili, Iron, AST, %Fe. Ordering Provider: MELVINA MOON Report Released Date/Time: Mar 27, 2023 03:03 PM Reporting Lab: [address] [address] Performing Lab: [address] [address] [facility] BASIC METABOLIC PANEL (fasting) CHLORIDE [MOLES/VOLU ME] IN SERUM OR PLASMA 111 mmol/L 100 - 110 04/09 H Specimen Type: SERUM Comment: Hemolysis present analysis cannot be performed. Hemolysis present may falsly elevate Potassium Total and Direct Bili, Iron, AST, %Fe. Ordering Provider: MELVINA MOON Report Released Date/Time: Mar 27, 2023 03:03 PM Reporting Lab: [facility] [address] [address] Performing Lab: [place] [address] [place], [place] [address] BASIC METABOLIC PANEL (fasting) CARBON DIOXIDE, TOTAL [MOLES/VOLU ME] IN SERUM OR PLASMA 23 meq/L 20 - 30 04/09 Specimen Type: SERUM Comment: Hemolysis present analysis cannot be performed. Hemolysis present may falsly elevate Potassium Total and Direct Bili, Iron, AST, %Fe. Ordering Provider: MELVINA MOON Report Released Date/Time: Mar 27, 2023 03:03 PM Reporting Lab: [address] [address] Performing Lab: [facility] [address] [place] [address] [place], [place] [address] BASIC METABOLIC PANEL (fasting) CREATININE [MASS/VOLUM E] IN SERUM OR PLASMA 0.99 mg/dL 0.50 - 1.40 04/09 Specimen Type: SERUM Comment: Hemolysis present analysis cannot be performed. Hemolysis present may falsly elevate Potassium Total and Direct Bili, Iron, AST, %Fe. Ordering Provider: MELVINA MOON Report Released Date/Time: Mar 27, 2023 03:03 PM Reporting Lab: [facility] [address] [address] Performing Lab: [address] [address] [facility] BAS[facility] METABOLIC PANEL (fasting) GLOMERULAR FILTRATION RATE/1.73 SQ M.PREDICTED [VOLUME RATE/AREA] IN SERUM, PLASMA OR BLOOD BY CREATININE- BASED FORMULA (CKD-EPI 2020) 78 mL/min 60 04/09 Specimen Type: SERUM Comment: Hemolysis present analysis cannot be performed. Hemolysis present may falsly elevate Potassium Total and Direct Bili, Iron, AST, %Fe. Ordering Provider: MELVINA MOON Report Released Date/Time: Mar 27, 2023 03:03 PM Reporting Lab: [facility] [address] Performing Lab: [facility] [address] [place] CBC AND DIFF (AUTO) LEUKOCYTES [#/VOLUME] IN BLOOD BY AUTOMATED COUNT 7.15 10*3/u L 4.50 - 11.00 04/09 Specimen Type: BLOOD No comment entered. Ordering Provider: MELVINA MOON Report Released Date/Time: Mar 27, 2023 03:03 PM Reporting Lab: [facility] [place] [address] [address] Performing Lab: [facility] [address] [place] CBC AND DIFF (AUTO) ERYTHROCYTE S [#/VOLUME] IN BLOOD BY AUTOMATED COUNT 4.89 10*6/u L 4.23 - 5.66 04/09 Specimen Type: BLOOD No comment entered. Ordering Provider: MELVINA MOON Report Released Date/Time: Mar 27, 2023 03:03 PM Reporting Lab: [facility] [address] Performing Lab: [facility] [address] [place] CBC AND DIFF (AUTO) HEMOGLOBIN [MASS/VOLUM E] IN BLOOD 15.9 g/dL 12.8 - 17 04/09 Specimen Type: BLOOD No comment entered. Ordering Provider: MELVINA MOON Report Released Date/Time: Mar 27, 2023 03:03 PM Reporting Lab: [facility]TRN [facility]ITALUSETS [address] [address] Performing Lab: [facility]PITALRPRINCETON [facility]ENTERTRN [facility]ITALUSETS [address] [address] [place] CBC AND DIFF (AUTO) HEMATOCRIT [VOLUME FRACTION] OF BLOOD BY AUTOMATED COUNT 47.0 39.2 - 50.4 04/09 Specimen Type: BLOOD No comment entered. Ordering Provider: MELVINA MOON Report Released Date/Time: Mar 27, 2023 03:03 PM Reporting Lab: [facility]ITALRUNIV[facility] HOS[facility]ITALN [address] [address] Performing Lab: [facility] [address] [address] [place] CBC AND DIFF (AUTO) MCV [ENTITIC VOLUME] BY AUTOMATED COUNT 96.1 fL 82 - 99 04/09 Specimen Type: BLOOD No comment entered. Ordering Provider: MELVINA MOON Report Released Date/Time: Mar 27, 2023 03:03 PM Reporting Lab: [facility]ITALRUNIV[facility] HOSPITALN [facility] [address] [address] Performing Lab: [facility]ITALRUNIVERS[facility] HOSPITALN [facility] [address] [place] CBC AND DIFF (AUTO) MCHC [MASS/VOLUM E] BY AUTOMATED COUNT 33.8 g/dL 30.8 - 35.1 04/09 Specimen Type: BLOOD No comment entered. Ordering Provider: MELVINA MOON Report Released Date/Time: Mar 27, 2023 03:03 PM Reporting Lab: [facility]ITALRUNIV[facility] HOSPITALN [address] [address] Performing Lab: [facility]ITALRUNIV[facility] HOS[facility]ITALN [facility] [address] [place] CBC AND DIFF (AUTO) PLATELETS [#/VOLUME] IN BLOOD BY AUTOMATED COUNT 207 10*3/u L 140 - 360 04/09 Specimen Type: BLOOD No comment entered. Ordering Provider: MELVINA MOON Report Released Date/Time: Mar 27, 2023 03:03 PM Reporting Lab: [facility]ITALUSETS [address] [address] Performing Lab: [facility] [address] [place] CBC AND DIFF (AUTO) ERYTHROCYTE DISTRIBUTIO N WIDTH [RATIO] BY AUTOMATED COUNT 13.2 12.0 - 16.0 04/09 Specimen Type: BLOOD No comment entered. Ordering Provider: MELVINA MOON Report Released Date/Time: Mar 27, 2023 03:03 PM Reporting Lab: [facility] [address] Performing Lab: [facility] HOSPITALRL WSTRN [facility]ITAL[facility] [address] [place] CBC AND DIFF (AUTO) MONOCYTES [#/VOLUME] IN BLOOD BY AUTOMATED COUNT 0.57 10*3/u L 0.30 - 1.10 04/09 Specimen Type: BLOOD No comment entered. Ordering Provider: MELVINA MOON Report Released Date/Time: Mar 27, 2023 03:03 PM Reporting Lab: [facility] [place] [address] [address] Performing Lab: [facility] HOSPITALRL WSTRN [facility] [address] [address] [place] CBC AND DIFF (AUTO) MCH [ENTITIC MASS] BY AUTOMATED COUNT 32.5 pg 26.2 - 32.6 04/09 Specimen Type: BLOOD No comment entered. Ordering Provider: MELVINA MOON Report Released Date/Time: Mar 27, 2023 03:03 PM Reporting Lab: [facility] [place] [address] [address] Performing Lab: [facility] [address] [place] CBC AND DIFF (AUTO) NEUTROPHILS /100 LEUKOCYTES IN BLOOD BY AUTOMATED COUNT 63.8 43.7 - 75.8 04/09 Specimen Type: BLOOD No comment entered. Ordering Provider: MELVINA MOON Report Released Date/Time: Mar 27, 2023 03:03 PM Reporting Lab: [facility] [place] [facility] [address] [facility] [address] Performing Lab: [facility] [place] [address] [address] [place] CBC AND DIFF (AUTO) LYMPHOCYTES /100 LEUKOCYTES IN BLOOD BY AUTOMATED COUNT 19.3 14.0 - 42.3 04/09 Specimen Type: BLOOD No comment entered. Ordering Provider: MELVINA MOON Report Released Date/Time: Mar 27, 2023 03:03 PM Reporting Lab: [facility] [place] [address] [address] Performing Lab: [facility] [address] [address] [place] CBC AND DIFF (AUTO) MONOCYTES/1 00 LEUKOCYTES IN BLOOD BY AUTOMATED COUNT 8.0 5.1 - 13.7 04/09 Specimen Type: BLOOD No comment entered. Ordering Provider: MELVINA MOON Report Released Date/Time: Mar 27, 2023 03:03 PM Reporting Lab: [facility] [address] [address] Performing Lab: [facility] [address] [address] [place] CBC AND DIFF (AUTO) EOSINOPHILS /100 LEUKOCYTES IN BLOOD BY AUTOMATED COUNT 7.8 0.4 - 6.8 04/09 H Specimen Type: BLOOD No comment entered. Ordering Provider: MELVINA MOON Report Released Date/Time: Mar 27, 2023 03:03 PM Reporting Lab: [facility] [address] [address] Performing Lab: [facility] [address] [address] [place] CBC AND DIFF (AUTO) BASOPHILS/1 00 LEUKOCYTES IN BLOOD BY AUTOMATED COUNT 0.8 0.1 - 2.0 04/09 Specimen Type: BLOOD No comment entered. Ordering Provider: MELVINA MOON Report Released Date/Time: Mar 27, 2023 03:03 PM Reporting [facility]: [facility] [address] [address] Performing Lab: [facility] [address] [place] CBC AND DIFF (AUTO) NEUTROPHILS [#/VOLUME] IN BLOOD BY AUTOMATED COUNT 4.56 10*3/u L 2.20 - 7.60 04/09 Specimen Type: BLOOD No comment entered. Ordering Provider: MELVINA MOON Report Released Date/Time: Mar 27, 2023 03:03 PM Reporting Lab: [facility] [place] [id number] Performing Lab[facility] [address] [place] CBC AND DIFF (AUTO) LYMPHOCYTES [#/VOLUME] IN BLOOD BY AUTOMATED COUNT 1.38 10*3/u L 1.00 - 3.20 04/09 Specimen Type: BLOOD No comment entered. Ordering Provider: MELVINA MOON Report Released Date/Time: Mar 27, 2023 03:03 PM Reporting Lab: [facility] [address] Performing [facility]: [facility] [address] [place] CBC AND DIFF (AUTO) EOSINOPHILS [#/VOLUME] IN BLOOD BY AUTOMATED COUNT 0.56 10*3/u L 0.03 - 0.44 04/09 H Specimen Type: BLOOD No comment entered. Ordering Provider: MELVINA MOON Report Released Date/Time: Mar 27, 2023 03:03 PM Reporting Lab: [facility] [address] Performing Lab: [facility]ITALN [address] [address] [place] CBC AND DIFF (AUTO) BASOPHILS [#/VOLUME] IN BLOOD BY AUTOMATED COUNT 0.06 10*3/u L 0.01 - 0.13 04/09 Specimen Type: BLOOD No comment entered. Ordering Provider: MELVINA MOON Report Released Date/Time: Mar 27, 2023 03:03 PM Reporting Lab: [facility] [address] [address] Performing Lab: [facility] [address] [address] [place] CBC AND DIFF (AUTO) IMMATURE GRANULOCYTE S/100 LEUKOCYTES IN BLOOD BY AUTOMATED COUNT 0.3 0.0 - 0.7 04/09 Specimen Type: BLOOD No comment entered. Ordering Provider: MELVINA MOON Report Released Date/Time: Mar 27, 2023 03:03 PM Reporting Lab: [facility]ITALN [address] [address] Performing Lab: [facility] [address] [address] [place] CBC AND DIFF (AUTO) IMMATURE GRANULOCYTE S [#/VOLUME] IN BLOOD 0.02 10*3/u L 0.00 - 0.06 04/09 Specimen Type: BLOOD No comment entered. Ordering Provider: MELVINA MOON Report Released Date/Time: Mar 27, 2023 03:03 PM Reporting Lab: [address] [address] Performing Lab: [address] [address] [place] Vital Signs Combined list of inpatient and outpatient Vital Signs from Department of Defense and Veterans Affairs, ranging from 12 months to all on record, depending upon the facility. Vital Sign Value Date Comments Source SYSTOLIC BLOOD PRESSURE 135 10/09/2024 13:09:47 [facility] DIASTOLIC BLOOD PRESSURE 80 10/09/2024 13:09:47 [facility] PULSE OXIMETRY 96 % 10/09/2024 13:09:47 [place] WEIGHT 209.6 10/09/2024 13:09:47 [place] BMI 30 kg/m2 10/09/2024 13:09:47 [place] TEMPERATURE 98.7 10/09/2024 13:09:47 [place] PULSE 92 10/09/2024 13:09:47 [facility] SYSTOLIC BLO[facility] PRESSURE 143 02/07/2024 13:44:19 [facility] DIASTOLIC BLOOD PRESSURE 81 02/07/2024 13:44:19 [facility] PULSE OXIMETRY 95 02/07/2024 13:44:19 [place] WEIGHT 213.8 02/07/2024 13:44:19 [place] BMI 31 kg/m2 02/07/2024 13:44:19 [place] TEMPERATURE 98.3 02/07/2024 13:44:19 [place] PULSE 86 02/07/2024 13:44:19 [place] Encounters Combined list of: 1) Encounters from Department of Veterans Affairs facilities going backup to the last 18 months, not all [place] inpatient encounters are included; 2) Encounters from the Department of Defense facilities going backup to 280 months. Location Location Details Encounter Type Encounter Number Reason For Visit Attending Provider ADM Date DC Date Status Disposition Source [facility] [id number] 06/06 [facility] [id number] 06/21 [facility] [id number] 07/01 [facility]counter [id number] 07/24 [facility] [id number] 08/22 [facility] [id number] 11/26 [facility] CPTR OPHTH DX IMG POST SEGMT [id number] Diagnos is: ICD-10- CM H40.013 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, low risk, bilater JOCELIN Grover 11/27 [facility] [place] 1 [id number] Diagnos is: ICD-10- CM H40.013 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, low risk, bilater JOCELIN Grover 11/27 [facility] En[facility] [id number] 12/06 [facility] [id number] 01/02 [facility]counter [id number] 01/15 [facility] Encounter [id number] 01/17 [facility] En[facility] [id number] 02/06 [facility] MIN [id number] 1BY. 02 Diagnos is: ICD-10- CM Z00.8 Encount er for other general examina artis NIRMALAJAMESSebastian SANTIAGOKELLY,OG NJBREA M 02/06 [facility] En[facility] [id number] 1.03/15 [facility] En[facility] [id number] 1[facility]03/18 [facility] [id number] [facility] En[facility] [id number] [facility] En[facility] [id number] 04/11 [facility] INTRM OPH EXAM EST PATIENT [id number] Diagnos is: ICD-10- CM H40.013 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, low risk, bilater JOCELIN Grover 04/22 [facility] [place] [id number] Diagnos is: ICD-10- CM H40.013 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, low risk, JOCELIN Harrell 04/22 [facility] FIT SPECTACLES MULTIFOCAL [id number] Diagnos is: ICD-10- CM Z46.0 Encount er for fit/adj st of spectac les and contact lenses JOCELIN BAKER 04/23 [facility] INTRM OPH EXAM EST PATIENT [id number] Diagnos is: ICD-10- CM 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, left eye JOCELIN BAKER 05/26 [facility] En[facility] [id number] 05/27 [facility] EXTENDED VISUAL FIELD XM [id number] Diagnos is: ICD-10- CM H40.013 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, low risk, bilater al JOCELIN BAKER 05/29 [facility] En[facility] [id number] 05/29 [facility] Encounter [id number] 06/29 [facility] INTRM OPH EXAM EST PATIENT [id number] Diagnos is: ICD-10- CM H40.013 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, low risk, bilater JOCELIN Grover 07/07 [facility] En[facility] [id number] 07/09 [facility] Encounter [id number] 07/31 [facility] En[facility] [id number] 08/20 [facility] Encounter [id number] 09/10 [facility] Out[facility] Encounter [id number] 09/15 [facility] Encounter [id number] 09/19 [facility] En[facility] [id number] 09/19 [facility] Out[facility] Encounter [id number] 09/25 [facility] [id number] 10/09 [facility] En[facility] [id number] 10/09 [facility] OFFICE O/P EST MOD 30 MIN [id number] Diagnos is: ICD-10- CM R06.00 Dyspnea , unspeci fied HUYEN CHRISTIANSEN 10/09 [facility] Social History Combined list of available smoking, tobacco, and other social history from Department of Defense and Veterans Affairs facilities. 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 04/29/2018 [facility] History of tobacco use VA-TOBACCO FORMER USER 03/22/2018 [facility] History of tobacco use QUIT TOBACCO USE IN PAST YEAR 04/09/2017 reports quitting 4 months ago [facility] History of tobacco use CURRENT SMOKER 03/21/2016 [facility] History of tobacco use CURRENT SMOKER 03/11/2015 6 cigarettes/d [facility] History of tobacco use CURRENT SMOKER 03/19/2014 5-6 cigarettes per day [facility] History of tobacco use V1-PT THINKING ABOUT QUIT TOBACCO USE 06/02/2013 [facility] History of tobacco use CURRENT SMOKER 11/29/2012 Pt stated that he smokes about 6 cigaretts a day [facility] History of tobacco use V1-TOBACCO CESS MEDS NOT PRESCRIBED 04/30/2012 PCP WILL ORDER THIS [facility] History of tobacco use CURRENT SMOKER 06/01/2011 Pt. states hi smokes 5-6 cigerettes a day. [facility] History of tobacco use CURRENT SMOKER 04/27/2010 smoker for 50 yrs...smokes 6-8 cigarettes per day [facility] History of tobacco use V1-PT THINKING ABOUT QUIT TOBACCO USE 09/13/2009 [facility] History of tobacco use CURRENT SMOKER 03/09/2009 10 cigarettes per day [facility] History of tobacco use CURRENT SMOKER 02/04/2008 Patient states he smokes a pack of ciggs per day. [facility] History of tobacco use V1-PT READY TO QUIT TOBACCO USE 03/14/2007 [facility] History of tobacco use CURRENT SMOKER 06/19/2006 counselled [facility] History of tobacco use QUIT TOBACCO USE IN PAST YEAR 06/13/2005 continue bupropion [facility] History of tobacco use CURRENT SMOKER 11/17/2004 1 pack a day [facility] History of tobacco use CURRENT SMOKER 06/23/2003 1ppd x 30yrs [facility] Plan of Care List of future care activities from [facility] Affairs facilities. Additional future care activities may be listed in the Assessment and Plan section. Date/Time Care Activity Care Activity Detail Facili ty 01/05/2025 AMBULATORY - MEDICINE [facility] [place] [facility]
[2024-11-27 14:59] VITALS: BP 134/72; PULSE 102; TEMP 36.3; O2SAT 95; BMI 29.9
--- NOTE | 2024-11-27 14:59 | MHC.PC.OV ---
Vital Signs 11/27/24 14:59 Height 5 ft 10 in Weight 208 lb 6 oz BMI 29.9 BP 134/72 Blood Pressure Location Lt brachial Position Sitting Pulse 102 H Pulse Source Pulse Oximeter Temp 97.3 F Temp Source Temporal Artery Scan Pulse Oximetry (%) 95 Oxygen Delivery Method Room Air Intake Visit Reasons: 4 month f/u Allergies naproxen (From Naprosyn) Allergy (Verified 11/27/24 15:33) Unknown Medication List - Last Reconciled 11/27/24 by Zachery Rios MD aspirin 81 mg PO DAILY atorvastatin 40 mg PO DAILY bupropion HCl (smoking deter) 150 mg PO DAILY lisinopril 5 mg PO DAILY polyethylene glycol 3350 (Gavilax) 17 grams PO DAILY PRN Tobacco use date assessed: 11/27/24 Fall risk assessment: 2 + Falls in past year Last assessed Fall Risk: 11/27/24 Dental Screening Dental Screen Date: 11/27/24 Did you have a dental visit in the last 12 months?: Yes Did you have a dental problem in the last 6 months where you did not have access to dental care?: No Was dental information given to patient?: Patient has dentist HPI 4 month f/u HPI Details Patient comes in today for his follow up visit States that he feels okay He denies any headaches or dizziness Denies any chest pains, no increased SOB No nausea/vomiting, no abdominal pain No change in bowel habits noted He had his follow up labs done a couple of months ago - to discuss his results [facility] Medical History Obesity (BMI 30-39.9) Smoker Urinary frequency 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 History of urinary retention Constipation Small bowel tumor SBO (small bowel obstruction) COVID-19 vaccine administered History of diverticulosis Overweight (BMI 25.0-29.9) Anxiety Skin cancer, 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 Lumbar strain Lumbar degenerative disc disease Impaired fasting glucose Benign essential hypertension Pure hypercholesterolemia Surgical History Hx of tooth extraction Status post small bowel resection (~09/14/20) H/O colonoscopy History of melanoma excision History of eye surgery Family History Father Cancer Mother Cancer Brother Colon cancer Social History Household Members: None Housing: House Are you a primary childcare teacher to a significant other at home: No Do you presently have visiting nurse or other home services: No Alcohol intake: former Comment: aware of trip hazard Patient Tobacco Use Status: Current everyday Tobacco user Tobacco use type: Cigarette Cigarettes Per Day: 4 Years Smoked: 60 e-Cigarette/Vaping Use: Never Used Second Hand Smoke Exposure: Yes Advance Directives Date on File: 08/17/20 service: Yes Current occupational status: retired Cognitive needs: No Hearing needs: No Vision needs: No Questionnaire PHQ-9 Over the last 2 weeks, how often have you been bothered by any of the following problems? 1. Little interest or pleasure in doing things: several days 2. Feeling down, depressed, or hopeless: not at all 3. Trouble falling or staying asleep, or sleeping too much: not at all 4. Feeling tired or having little energy: several days 5. Poor appetite or overeating: not at all 6. Feeling bad about yourself - or that you are a failure or have let yourself or your family down: not at all 7. Trouble concentrating on things, such as reading the newspaper or watching television: not at all 8. Moving or speaking so slowly that other people could have noticed. Or the opposite - being so fidgety or restless that you have been moving around a lot more than usual: not at all 9. Thoughts that you would be better off or of hurting yourself in some way: not at all Total score: 2 Depression Screening Interpretation: Negative Depression Screening Done: Yes 40543 - PHQ-9 Billing: Yes Source: Developed by Drs. Kentrell Lua, Kathryn Blackwell, Hesham Thomas and colleagues, with an educational adair from [employer]. Thrive Questionnaire Date Thrive assessed: 07/11/24 I am a: Patient What is your living situation today?: I have a steady place to live Within the past 12 months, did the food you bought not last and you didn't have the money to get more?: Never true Within the past 12 months, did you worry whether your food would run out before you got money to buy more?: Never true Do you have trouble paying for medicines?: No Do you have trouble getting transportation to medical appointments?: No Do you have trouble paying your heating and electricity bill?: No Do you have trouble taking care of your child, family member or friend?: No Do you have trouble with day-to-day activities such as bathing, preparing meals, shopping, managing finances, etc.?: No Are you currently unemployed and looking for a job?: No Are you interested in more education?: No Please select the resources that you would like help with: None Currently or been in a relationship where the following occur: No concerns reported THRIVE Score: 0 AUDIT C Alcohol Use Questionnaire (AUDIT-C) 1. How often do you have a drink containing alcohol?: 2-4 times a month 2. How many drinks containing alcohol do you have on a typical day when you are drinking?: 3 or 4 3. How often do you have six or more drinks on one occasion?: Never Total Score: 3 Score Reviewed/Action Taken: Yes ADALI-7 AMB Questionnaire ADALI-7 Date ADALI - 7 assessed: 07/11/24 Feeling nervous, anxious, or on edge: 0 = Not at all Not being able to stop or control worryin = Not at all Worrying too much about different things: 0 = Not at all Trouble relaxin = Not at all Being so restless that it is hard to sit still: 0 = Not at all Becoming easily annoyed or irritable: 0 = Not at all Feeling afraid as if something awful might happen: 0 = Not at all Total ADALI-7 score (0-4 normal; 5-9 mild; 10-14 moderate; 15-21 severe): 0 Source: Developed by Drs. Kentrell Lua, Kathryn Blackwell, Hesham Thomas and colleagues, with an educational adair from [employer]. Review of Systems Const Denies chills, Denies fatigue, Denies fever(s) and Denies headache(s) ENT Denies dysphagia, Denies dizziness, Denies otalgia, Denies headache(s), Denies neck pain, Denies odynophagia and Denies sore throat Card Denies chest pain, Denies palpitations and Reports dyspnea on exertion (mild) Resp Denies chest congestion, Denies cough and Reports dyspnea on exertion (mild) GI Denies abdominal pain, Denies constipation, Denies dysphagia, Denies heartburn, Denies diarrhea, Denies nausea, Denies odynophagia and Denies vomiting Denies difficulty urinating, Denies dysuria, Reports nocturia and Reports urinary frequency Musc Denies back pain, Denies arthralgias and Denies neck pain Skin/Breast Denies rash Neuro Denies dizziness and Denies headache(s) Psych Denies anxiety Endo Denies fatigue and Denies palpitations Physical exam (Primary Care) Vital Signs: Last Vital Signs Temp 97.3 F 11/27/24 14:59 Pulse 102 H 11/27/24 14:59 BP 134/72 11/27/24 14:59 Pulse Ox 95 11/27/24 14:59 Oxygen Delivery Method Room Air 11/27/24 14:59 BMI result Body Mass Index 29.9 Tobacco/Smoking Status: Tobacco use Status Tobacco use date assessed 11/27/24 11/27/24 15:04 Patient Tobacco Use Status Current everyday Tobacco 11/27/24 15:04 Tobacco use type Cigarette 11/27/24 15:04 e-Cigarette/Vaping Use Never Used 11/27/24 15:04 PHQ-9: PHQ-9 Score PHQ-9: Total score 2 11/27/24 15:35 Depression Screening Interpretation: Negative Thrive Assessment: Date of Thrive Assessment Date Thrive assessed 07/11/24 11/27/24 15:04 Currently or been in a relationship where the following occur: No concerns reported Const General: no acute distress and alert HENMT Ears: TM's normal bilaterally and EAC's normal Throat: Yes posterior oropharynx normal and Yes tonsils normal (no TP congestion noted) Neck Neck: Yes supple and No lymphadenopathy Thyroid: Thyroid normal Resp Auscultation: clear to auscultation bilaterally, no rales and no wheezes Cardio Rate: regular rate Rhythm: regular rhythm Heart sounds: no murmurs GI Palpation (GI): Soft to palpation and nontender Auscultation: normal bowel sounds General: Yes no CVA tenderness Back/Spine/Pelvis Back: no CVA tenderness Thoracic/Lumbar Spine: lumbar spinal tenderness (mild) Skin Rashes: no rashes Extrem General: Yes no clubbing, cyanosis or edema Results Reviewed Results Reviewed: Laboratory Tests 09/22/24 07:39 WBC 6.8 Hgb 14.5 Hct 41.9 L Plt Count 164 ESR 18 H Sodium 141 Potassium 3.7 Creatinine 1.09 Estimated GFR > 60 Random Glucose 115 Calcium 9.2 AST 23 ALT 24 Lactate Dehydrogenase 186 Coding Level of Care Code Est Pt Level 4 (33660) Diagnoses Benign essential hypertension I10 Pure hypercholesterolemia E78.00 Impaired fasting glucose R73.01 Exertional dyspnea R06.09 Mild ascending aorta dilatation I77.810 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 Eosinophilia, unspecified type D72.10 Eosinophilia type: unspecified eosinophilia 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 Laterality: right Recurrent skin melanoma C43.9 Anxiety F41.9 Smoker F17.200 Obesity (BMI 30-39.9) E66.9 Additional Codes PHQ-9 - 38576 - PHQ-9 Billing: Yes ([id number]) Assessment & Plan Assessment & Plan (1) Benign essential hypertension: Code(s): I10 - Essential (primary) hypertension Category: Medical Plan: Reinforced low sodium diet - goal is systolic BP of at least 140 mm or less Continue Lisinopril 5 mg QD He is reminded to continue monitoring his blood pressure regularly (2) Pure hypercholesterolemia: Code(s): E78.00 - Pure hypercholesterolemia, unspecified Category: Medical Plan: Results of his labs done a couple of months ago reviewed and discussed with patient Reinforced low cholesterol diet Continue Atorvastatin 80 mg QD Will have patient recheck his labs and fasting lipids in 4 months for follow up (3) Impaired fasting glucose: Code(s): R73.01 - Impaired fasting glucose Category: Medical Plan: His HgbA1c was normal at 5.7% on his recent labs; was previously at 5.4% a few months ago Reinforced low calorie diet/exercise as tolerated (4) Exertional dyspnea: Code(s): R06.09 - Other forms of dyspnea Category: Medical Plan: This is most likely due to physical decompensation and partly related to his age He was sent for echocardiogram for further evaluation and echocardiogram in January 2024 revealed (+) normal left ventricular size and systolic function, with the visually estimated ejection fraction between 55-60%. 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: Comment: In remission Code(s): C83.39 - Diffuse large B-cell lymphoma, extranodal and solid organ sites Category: Medical Plan: S/P laparoscopic small bowel resection on 09/14/20 - pathology reportedly came out as?non-Hodgkin's B-cell lymphoma He completed chemotherapy with R-CHOP and had Port-a-cath eventually removed (Tx from 11/02/2020 to 02/15/2021) He was recently seen by Oncology for follow-up and patient currently remains in remission Follow up with oncology as scheduled for continuing surveillance (7) Eosinophilia: Code(s): D72.10 - Eosinophilia, unspecified Category: Medical Qualifiers: Eosinophilia type: unspecified eosinophilia Qualified Code(s): D72.10 - Eosinophilia, unspecified Plan: Patient has been presenting with significant eosinophilia on his CBC over the past several months He denies any acute or increased allergy symptoms or rash/itching lately Follow up with hematology/oncology as scheduled (8) Internal jugular vein thrombosis: Code(s): I82.C19 - Acute embolism and thrombosis of unspecified internal jugular vein Category: Medical Qualifiers: Laterality: right Qualified Code(s): I82.C11 - Acute embolism and thrombosis of right internal jugular vein Plan: Venous doppler done following tunneled port removal revealed the persistence of a thrombus in the right IJ Right upper extremity US last done in December 2021 revealed NO DVT He has been taken off Apixaban 5 mg BID and currently remains only on low dose Aspirin 81 mg QD (9) Recurrent skin melanoma: Code(s): C43.9 - Malignant melanoma of skin, unspecified Category: Medical Plan: S/P excisional surgery on the nose with [facility] Follow up with OR Dermatology as scheduled for continuing surveillance (10) Anxiety: Code(s): F41.9 - Anxiety disorder, unspecified Category: Medical Plan: Continue Lorazepam 0.5 mg QD PRN and Bupropion 150 mg QD (11) Smoker: Code(s): F17.200 - Nicotine dependence, unspecified, uncomplicated Category: Social Hx Plan: Patient is counseled again on complete smoking cessation (12) Obesity (BMI 30-39.9): Code(s): E66.9 - Obesity, unspecified Category: Medical Plan: Reinforced diet/exercise as tolerated/lose weight Plan Follow up in 4 months Orders: Orders Complete Blood Count Auto Diff 4 Months D64.9 - Anemia, unspecified Comprehensive [place]. Panel Fast 4 Months E78.00 - Pure hypercholesterolemia, unspecified TSH reflex Free T4 4 Months E78.00 - Pure hypercholesterolemia, unspecified UA CC w/rflx Micro + Cult 4 Months R30.0 - Dysuria Vitamin D 25-OH Total 4 Months E55.9 - Vitamin D deficiency, unspecified Lipid Panel 4 Months E78.00 - Pure hypercholesterolemia, unspecified Vitamin B12 and Folate 4 Months E53.8 - Deficiency of other specified B group vitamins
--- OUTSIDE RECORDS SUMMARY | 2024-11-27 15:38 | XMS_ITS | Patient Health Record ---
[facility] Address [address] [place] [address] Care Team Providers Care Animal Shelter Manager Name Role Phone Dane Rios MDneth Primary Care Provider Raquel Ruelas Unavailable [phone] Allergies No Known Allergies Reason For Referral No Information Medications Medication SIG (Take, Route, Frequency, Duration) Notes Start Date End Date Status Lisinopril 5 MG 1 tablet Orally Once a day; Duration: 30 day(s) Active Ciclopirox Olamine 0.77 % 1 application Externally Twice a day; Duration: 30 days Not-Taking Apixaban 5 MG as directed Orally Not-Taking PreserVision AREDS 2 Active Multivitamin Active Atorvastatin Calcium 40 MG 1 tablet Orally Once a day; Duration: 30 day(s) Active buPROPion HCl ER (Smoking Det) 150 MG 1 tablet in the morning Orally Once a day; Duration: 30 day(s) Active Immunizations Vaccine Route Administration Date Status Comme nts Influenza Unknown 12/02/2023 Administered Social History Tobacco Use: Social History [...] Are you an other tobacco user? No AUDIT-C (Standard) Question Answer Notes Did you have a drink containing alcohol in the p ast year? No Points 0 Interpretation Negative Problems Problem Type SNOMED Code ICD Code Onset Dates Problem Status W/U Status Risk Notes Problem Neuropathy (826327894) Neuropathy (G62.9) Active confirmed Vital Signs Blood pressure diastolic 80 mm Hg 10/22/2024 Height 5 ft 9 in in 10/22/2024 Blood pressure systolic 120 mm Hg 10/22/2024 Weight 200 lbs 10/22/2024 BMI 29.53 kg/m2 10/22/2024 Encounters Encounter Location Date Provider Diagnosis [address] [phone] 01/25/2024 Raquel Perica Onychomycosis B35.1 ; Pain in right toe(s) M79.674 and Pain in left toe(s) M79.[address] [address] 04/23/2024 Raquel Perica Onychomycosis B35.1 ; Pain in right toe(s) M79.674 and Pain in left toe(s) M79.[address] [address] 07/04/2024 Raquel Perica Onychomycosis B35.1 ; Pain in right toe(s) M79.674 and Pain in left toe(s) M79.[address] [address] 10/22/2024 Raquel Perica Onychomycosis B35.1 ; Pain in right toe(s) M79.674 and Pain in left toe(s) M79.[address] [address] 09/08/2024 Raquel Perica Assessments Encounter Date Diagnosis (ICD Code) Assessment Notes Treatment Notes Treatment Clinical Notes Section Notes 01/25/2024 Pain in right toe(s) (ICD-10 - M79.674) 01/25/2024 Onychomycosis (ICD-10 - B35.1) 04/23/2024 Pain in right toe(s) (ICD-10 - M79.674) 04/23/2024 Onychomycosis (ICD-10 - B35.1) 07/04/2024 Pain in right toe(s) (ICD-10 - M79.674) 07/04/2024 Onychomycosis (ICD-10 - B35.1) 10/22/2024 Onychomycosis (ICD-10 - B35.1) 10/22/2024 Pain in right toe(s) (ICD-10 - M79.674) 07/04/2024 Pain in left toe(s) (ICD-10 - M79.675) 04/23/2024 Pain in left toe(s) (ICD-10 - M79.675) 01/25/2024 Pain in left toe(s) (ICD-10 - M79.675) 10/22/2024 Pain in left toe(s) (ICD-10 - M79.675) Plan Of Treatment Next Appt Details Provider Name:Raquel castillo, 01/16/2025 11:15:00 AM, [address] [facility], [place], [address], Insurance Providers Payer Name Payer Address Payer Phone Subscriber Number Group Number Insured Name Patient Relationship to Insured Coverage Start Date Coverage End Date Medicare National [employer] [address] [place] [address] [id number] Robert Mcintyre Self - patient is the insured [employer] Preferred [address] [place] [address] [phone] [id number] Robert Mcintyre Self - patient is the insured Medical (General) History Medical History History ICD Code Arthritis Back,Hip,and Knee pain Cancer Cataracts High blood pressure Macular degeneration Numbness Surgical History Surgery Date(Month/Year) melanoma 2017, 2018 lymphoma 2020 cataract surgery
--- OUTSIDE RECORDS SUMMARY | 2024-11-27 15:38 | XMS_ITS | Patient Health Record ---
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 (Z79.82) Active confirmed Problem [id number] Polyp of colon, unspecified part of colon, unspecified type (K63.5) Active confirmed Encounters Encounter Location Date Provider Diagnosis [facility] [address], [place] [id number] 12/07/2023 Rian Metzger Jr Colon cancer screening Z12.11 [facility] [address] [place] [address] 12/11/2023 Rian Metzger Jr Assessments Encounter Date Diagnosis (ICD Code) Assessment Notes Treatment Notes Treatment Clinical Notes Section Notes 12/07/2023 Colon cancer screening (ICD-10 - Z12.11) Plan Of Treatment Future Test Test Name Order Date COLONOSCOPY 06/21/2020 COLONOSCOPY 08/23/2023 Insurance Providers Payer Name Payer Address Payer Phone Subscriber Number Group Number Insured Name Patient Relationship to Insured Coverage Start Date Coverage End Date MEDICARE OF [place] [address] [place] [address] [id number] ADRIANA JOSÉ Self - patient is the insured [employer] PREF[employer] [address] [place] [address] [id number] ADRIANA JOSÉ Self - patient is the [...]
--- OUTSIDE RECORDS SUMMARY | 2024-11-27 15:38 | XMS_ITS | Clinical Summary ---
Author Organization [facility] Address [address] [place] [address] Care Team Providers Care Senior Cost Estimator Name Role Phone Zachery Rios MD Primary Care Provider Surgical History Surgery Date Site/Laterality Comments OTHER SURGICAL HISTORY PROCEDURE: [place] EXCISION MALIGNANT LESION F/E/E/N/L 0.5 CM/< OTHER SURGICAL HISTORY 03/15/2017 Left PROCEDURE: [place] ICAPSULAR CATARACT XTRJ INSJ IO LENS PRSTH [...] Health Maintenance Due Date Last Done Comments RSV Immunization Adult Patients (1 - 1-dose 75+ series) 2021 COVID-19 Vaccine ( season) 2023 12/30/2021, 07/20/2021, 12/01/2020, Additional history exists Depression Screening 04/02/2024 Cholesterol Screening (Lipid Panel) 07/18/2024 Falls Risk Assessment 07/18/2024 Hepatitis C Screening 07/18/2024 Hypertension/CHF/CAD Annual BMP Blood Test 07/18/2024 Lung Cancer Screening (Low Dose CT) 07/18/2024 Social Influencers of Health Screening 07/18/2024 Influenza Vaccine (#1) 2024 , 12/31/2022, 12/31/2021, Additional history exists DTaP,Tdap,and Td Vaccines (4 - Td or Tdap) 05/13/2028 05/13/2018, 04/30/2012, 12/07/2004 Pneumococcal Vaccine: 50+ Years Completed 03/21/2016, 03/11/2015, 04/27/2010 Zoster Vaccines Completed 05/12/2020, 11/0 08/2019, 04/02/2012 HIB Vaccines Aged Out No longer eligi [...] to complete this topic RSV Immunization Patients Under 20 months Aged Out No longer eligible based on patient's age to complete this topic Varicella Vaccines Aged Out No longer eligible based on patient's age to complete this topic Care Teams Senior Cost Estimator Relationship Specialty Start Date End Date Zachery Rios MD [address] [place] [address] Dr [address] [facility] Carrera PCP - General Internal Medicine 02/05/18
== END 2024-11-27 15:37 | disposition home or self-care (01) ==
LOC: HO.HMCH 14:58
PROVIDERS: PCP Internal Medicine; Visit Provider Internal Medicine
DX: I10 Essential (primary) hypertension (principal); I82.C11 Acute embolism and thrombosis of right internal jugular vein; C43.9 Malignant melanoma of skin, unspecified; E78.00 Pure hypercholesterolemia, unspecified; R73.01 Impaired fasting glucose; C83.398 Diffuse large B-cell lymphoma of other extranodal and solid organ sites; R06.09 Other forms of dyspnea; I77.810 Thoracic aortic ectasia; D72.10 Eosinophilia, unspecified; F41.9 Anxiety disorder, unspecified; F17.200 Nicotine dependence, unspecified, uncomplicated; E66.9 Obesity, unspecified

== ENCOUNTER → 2024-11-27 14:57 | Outpatient (BNVA) | payer MEDICARE, SELFPAY | PROVIDERS: PCP Internal Medicine; Visit Provider Internal Medicine | DX: I10 Essential (primary) hypertension (principal); E78.00 Pure hypercholesterolemia, unspecified; R73.01 Impaired fasting glucose; R06.09 Other forms of dyspnea; I77.810 Thoracic aortic ectasia; C83.398 Diffuse large B-cell lymphoma of other extranodal and solid organ sites; D72.10 Eosinophilia, unspecified; I82.C11 Acute embolism and thrombosis of right internal jugular vein; C43.9 Malignant melanoma of skin, unspecified; F41.9 Anxiety disorder, unspecified; E66.9 Obesity, unspecified; Z68.29 Body mass index [BMI] 29.0-29.9, adult; F17.200 Nicotine dependence, unspecified, uncomplicated; Z71.6 Tobacco abuse counseling; Z71.3 Dietary counseling and surveillance | CPT/HCPCS: 96127; 99212 ==

== ENCOUNTER 2025-01-01 13:46 | Outpatient (AMB) | payer MEDICARE, SELFPAY ==
--- OUTSIDE RECORDS SUMMARY | 2023-12-07 05:10 | XMS_ITS ---
Author Organization [facility] Address [address] [place] [phone] Care Team Providers Care Entry Level Automotive Technician Name Role Phone Gabriel MONTGOMERY, Zachery Primary Care Provider Rian Larsen Jr Unavailable Kathy Silverio M.D Unavailable Unavailable REASON FOR VISIT hx polyps Encounters Encounter Location Date Provider Diagnosis [facility] [place] [address] [place] [phone] 12/07/2023 Rian Metzger Jr Colon cancer screening Z12.11 Assessments Encounter Date Diagnosis (ICD Code) Assessment Notes Treatment Notes Treatment Clinical Notes Section Notes 12/07/2023 Colon cancer screening (ICD-10 - Z12.11) Plan Of Treatment No Information Progress Notes * LUISWALLACEJAYJOCELIN ADRIANA JDOB:1945 (79 yo M)Acc No.[id number]:12/07/2023 COLON WITH MAC Patient: Cruz ORTEGA ADRIANA Robin Provider: Kelly Metzger MD :1945 A ge:78 Y S ex:Male Date:12/07/2023 Address:[address] [place], [place] [phone] Pcp:Zachery Rios MD Subjective: * Chief Complaints: * 1 . Hx polyps. * Medical History: Objective: * Vitals: Assessment: * Assessment: 1. C olon cancer screening - Z12.11 (Primary) Plan: * Treatment: * Procedure Codes: 4 5378 DIAGNOSTIC COLONOSCOPY, 0529F INTRVL 3+YRS PTS CLNSCP DOCD * * The named appointment provid er may or may not be the originator of this progress note, and it is not deemed complete until electronically signed by the appointment provider. Sign off status: Pending * Provider: Kelly Metzger MD Date: 0 12/07/2023 Generated for Salvador guajardo/Flori/Yecenia on: 1 03:24 PM EDT
--- OUTSIDE RECORDS SUMMARY | 2024-04-18 08:15 | XMS_ITS ---
Author Organization [facility] Address [address] [place] [address] Care Team Providers Care Dwarf Tree Grower Name Role Phone Dane Rios MDneth Primary Care Provider Raquel Ruelas Unavailable [phone] De La Vega [...] Active Encounters Encounter Location Date Provider Diagnosis [address] [address] 04/18/2024 Raquel Smith Plan Of Treatment Next Appt Details Provider Name:Raquel castillo, 01/16/2025 11:15:00 AM, [address] [place] [address], [phone], Progress Notes * Robert MCINTYREDOB:1945 (79 yo M)Acc No.[id number]:04/18/2024 Progress Note Patient: Cruz Robert ORTEGA Provider: Caty Smith DPM :1945 A ge:78 Y S ex:Male Date:04/18/2024 Address:[address] [place] [address] [id number] Pcp:Zachery Rios MD Subjective: * Chief Complaints: [...] 0 04/18/2024 Generated for Salvador guajardo/Flori/Yecenia on: 1 03:25 PM EDT History and Physical Notes * HPI (History of Present Illness) Category Sub-Category Detail Notes Category Not es Painful Nails Pt States Last PCP Visit: Date:: 11/01/2023
--- OUTSIDE RECORDS SUMMARY | 2024-06-04 06:20 | XMS_ITS ---
Author Organization [facility] Address [address] [place] [phone] Care Team Providers Care Fishing Reel Assembler Name Role Phone Gabriel MONTGOMERY, Zachery Primary Care Provider Tootie Metzger Jr, Rian Unavailable Kathy Silverio M.D Unavailable Unavailable REASON FOR VISIT colon polyp Encounters Encounter Location Date Provider Diagnosis [facility] [address] [place] [phone] 06/04/2024 Rian Metzger Jr Plan Of Treatment No Information Progress Notes * ADRIANA JOSÉ JDOB:1945 (79 yo M)Acc No.[id number]:06/04/2024 Progress Notes Patient: ADRIANA CHAVEZ Provider: Kelly Metzger MD :1945 A ge:78 Y S ex:Male Date:06/04/2024 Address:[address] [place], [place] [phone] Pcp:Zachery Rios MD Subjective: * Chief Complaints: * 1 . Colon polyp. * Medical History: Objective: * Vitals: Assessment: Plan: * Treatment: * * The named appointment provid er may or may not be the originator of this progress note, and it is not deemed complete until electronically signed by the appointment provider. Sign off status: Pending * Provider: Kelly Metzger MD Date: 0 06/04/2024 Generated for Salvador guajardo/Flori/eTransmitting on: 1 03:25 PM EDT
--- OUTSIDE RECORDS SUMMARY | 2024-09-19 09:45 | XMS_ITS ---
Author Organization [facility] Address [address] [place] [address] Care Team Providers Care Powerhouse Electrician Name Role Phone Gabriel MONTGOMERY, Zachery Primary Care Provider Unava ilRaquel Callahan [phone] Encounters Encounter Location Date Provider Diagnosis [facility] [address] [place] [address] 09/19/2024 Raquel Smith Plan Of Treatment Next Appt Details Provider Name:Raquel castillo, 01/16/2025 11:15:00 AM, [address] [place], [address], Progress Notes * Robert MCINTYREDOB:1945 (79 yo M)Acc No.[id number]:09/19/2024 Progress Note Patient: Cruz BRITORobert FLEMING Provider: Caty Smith DPM :1945 A ge:79 Y S ex:Male Date:09/19/2024 Address:[address] [place] [address] Pcp:Zachery Rios MD Subjective: * Chief Complaints: [...] 09/19/2024 Generated for Salvador guajardo/Flori/Yecenia on: 1 03:25 PM EDT
[2025-01-01 14:02] VITALS: BP 124/68; PULSE 90; O2SAT 97; BMI 29.7
--- NOTE | 2025-01-01 14:02 | A.OFFVIS_ITS ---
Vital Signs 01/01/25 14:02 Height 5 ft 10 in Weight 207 lb 3.752 oz BMI 29.7 BP 124/68 Blood Pressure Location Lt brachial Position Sitting Pulse 90 Pulse Source Pulse Oximeter Pulse Oximetry (%) 97 Oxygen Delivery Method Room Air Intake Visit Reasons: Shortness of breath Intake Note: pt is here as a new patient for shortness of breath with exertion and stairs. pt did have sleep study in 2023 and could not tolerate cpap, the mask would fall off. Stamp Press Operator Required: No Photolith Operator: Photolith Operator offered & declined Allergies naproxen (From Naprosyn) Allergy (Verified 01/01/25 14:40) Unknown Medication List - Last Reconciled 01/01/25 by Divine Mace MD aspirin 81 mg PO DAILY atorvastatin 40 mg PO DAILY bupropion HCl (smoking deter) 150 mg PO DAILY lisinopril 5 mg PO DAILY polyethylene glycol 3350 (Gavilax) 17 grams PO DAILY PRN Do you need a note to return to daycare/school/sports/work: No HPI HPI Shortness of breath: Details: This 79 years old gentleman is being seen for the 1st time for pulmonary evaluation, because of his main complaint being shortness of breath on exertion such as working in his backyard. This complaint is more recent for the last year or so. He has very minor bouts of cough. He denies any wheezing. He has no shortness of breath at rest. He has history of smoking about 2 packs a day for almost 40 years and in the last 5-6 years he has cut it weight down to like 5 cigarettes a day. He had CT scan of the chest 2 years ago and it did not show any significant, lung density, 2 small tiny nodules were unchanged from is CT scan 2 years before that. Patient also had home-based sleep study last year, he slept only for 2 hours or so and it was negative sleep apnea. He denies any problem with his sleeping these days. He is now sleeping better because he is on bupropion 150 mg daily, trying to quit smoking. He has past history of follicular lymphoma of the small intestine. Has been partially resected followed by chemotherapy. And the lymphoma is in remission. Patient is followed up in the Oncology Department, Dr. Breanna Prakash , currently he is not on any chemotherapeutic agent. 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 Lumbar strain Lumbar degenerative disc disease Impaired fasting glucose Benign essential hypertension Pure hypercholesterolemia Surgical History Hx of tooth extraction Status post small bowel resection (~09/14/20) H/O colonoscopy History of melanoma excision History of eye surgery Family History Father Cancer Mother Cancer Brother Colon cancer Social History Household Members: None Housing: House Are you a primary residential care officer to a significant other at home: No Do you presently have visiting nurse or other home services: No Alcohol intake: former Comment: aware of trip hazard Patient Tobacco Use Status: Current everyday Tobacco user Tobacco use type: Cigarette Cigarettes Per Day: 4 Years Smoked: 60 e-Cigarette/Vaping Use: Never Used Second Hand Smoke Exposure: Yes Advance Directives Date on File: 08/17/20 service: Yes Current occupational status: retired Cognitive needs: No Hearing needs: No Vision needs: No Review of Systems Const All systems reviewed & are unremarkable except as noted in HPI and below Eyes Reports no additional complaints ENT Reports nasal obstruction (Left nostril, has had melanoma excised from the nose.) Card Denies chest pain, Denies chest pain at rest, Denies irregular heart rhythm, Denies leg edema and Reports dyspnea on exertion Resp Reports as per HPI and Reports dyspnea on exertion GI Reports constipation Reports no additional complaints Musc Reports no additional complaints Skin/Breast Reports system reviewed and no additional complaints, except as documented Neuro Reports no additional complaints Psych Reports no additional complaints Endo Reports no additional complaints Tripp/Lymph Reports no additional complaints Aller/Immun Reports no additional complaints Physical Exam Vital Signs: Last Vital Signs Pulse 90 01/01/25 14:02 BP 124/68 01/01/25 14:02 Pulse Ox 97 10/02/25 14:02 Oxygen Delivery Method Room Air 01/01/25 14:02 BMI result Body Mass Index 29.7 Const General: comfortable, no acute distress, alert and awake Orientation/consciousness: patient oriented x3 HEENT Head: Yes normal to inspection General nose exam: No nasal polyps present and No nasal discharge present Face and sinus: Yes sinuses nontender Mouth: oropharynx normal Throat: Yes posterior oropharynx normal Eyes General: appearance normal, both eyes and all related structures Neck Neck: Yes normal visual inspection, Yes no lymphadenopathy, Yes trachea midline and Yes no JVD Thyroid: Thyroid normal Chest Chest palpation & inspection: normal inspection of the chest, normal palpation of entire chest wall and no tenderness Resp Other: Percussion note is resonant. Breath sounds are slightly distant. No audible wheezes or crepitations. Cardio Palpation: normal PMI Rate: regular rate Rhythm: regular rhythm Heart sounds: no gallops and no murmurs Peripheral pulses: Peripheral pulses 2+ throughout GI Palpation (GI): Soft to palpation, nontender, No hepatosplenomegaly present and no masses Auscultation: normal bowel sounds Back/Spine/Pelvis Thoracic/Lumbar Spine: thoracic and lumbar spine normal to inspection Skin General skin exam: no rashes or lesions noted Neuro General: patient oriented x3 and no focal motor deficits Cranial nerves: Yes CN's II-XII intact bilaterally Extrem General: Yes normal to inspection, Yes no clubbing, cyanosis or edema and Yes no calf tenderness Psych Appearance: grossly normal and well kempt Speech and movement: Normal speech and movement present Results Reviewed Results Reviewed: 09/[address] SCAN IMPRESSION: 1. No evidence of recurrent lymphoma in the chest, abdomen or pelvis. 2. Incidental note made of emphysema, nonobstructing right renal calculus, colonic diverticulosis without diverticulitis, small bowel anastomosis without obstruction, and mild BPH. 3. The previously seen 2 new lung nodules first seen on the 12/21/2021 study remain present and are unchanged. Fleischner guidelines were followed. HST 01/23 SLEPT ONLY FOR 2 HRS . NEGATIVE FOR ALEM Assessment & Plan Assessment & Plan (1) Exertional dyspnea: Comment: HE HAS EXERTIONAL DYSPNEA FOR ABOUT 1 YEAR, NO COUGH OR WHEEZING. IT IS PROBABLY MULTIFACTORIAL, ( POSSIBLE COPD, GENERAL DECONDITIONING, OBESITY ) It is mild and he can cope with it and continues to do his normal activities. Code(s): R06.09 - Other forms of dyspnea Category: Medical Plan: PLAN IS TO DO PULMONARY FUNCTION TEST , TO CHECK FOR COPD AND THEN TREAT ACCORDINGLY, (2) Smoker: Comment: LONGSTANDING HISTORY OF SMOKING 2 PACKS A DAY FOR MORE THAN 40 YEARS, NOW FOR THE PAST 5-6 YEARS HAS CUT DOWN TO 5 CIGARETTES A DAY. THIS IS WITH THE HELP OF BUPROPION HCL 150 MG DAILY Code(s): F17.200 - Nicotine dependence, unspecified, uncomplicated Category: Social Hx Plan: COMMENDED FOR CUTTING DOWN THE NUMBER OF CIGARETTES. BUT RECOMMENDED TO TRY QUITTING COMPLETELY. 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 LUNG CANCER CT SCAN OF THE CHEST, IN 09/21 AND , RELATIVELY BENIGN. WITH 2 SMALL NODULES NOT INCREASING IN SIZE. HE IS ALREADY 79 YEARS OLD, MAY NOT QUALIFY FOR ANNUAL LDCT, AND WILL BE ORDERING CT SCAN OF THE CHEST NEEDED. 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 HAS BEEN TREATED FOR LYMPHOMA OF THE SMALL INTESTINE WITH SURGICAL RESECTION FOLLOWED BY CHEMOTHERAPY, AND CURRENTLY IN REMISSION. 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
--- OUTSIDE RECORDS SUMMARY | 2025-01-01 15:26 | XMS_ITS | Patient Health Record ---
Author Organization [facility] Address [address] [place] [address] Care Team Providers Care Solar Engineer Name Role Phone Dane Rios MDneth Primary Care Provider Raquel Ruelas Unavailable [phone] Allergies No Known Allergies Reason For Referral [...] Status W/U Status Risk Notes Problem Neuropathy (638128757) Neuropathy (G62.9) Active confirmed Vital Signs Blood pressure diastolic 80 mm Hg 10/22/2024 Height 5 ft 9 in in 10/22/2024 Blood pressure systolic 120 mm Hg 10/22/2024 Weight 200 lbs 10/22/2024 BMI 29.53 kg/m2 10/22/2024 Encounters Encounter Location Date Provider Diagnosis [address] [address] 01/25/2024 Raquel Perica Onychomycosis B35.1 ; Pain in right toe(s) M79.674 and Pain in left toe(s) M79.[address] [address] 04/23/2024 Raquel Perica Onychomycosis B35.1 ; Pain in right toe(s) M79.674 and Pain in left toe(s) M79.[address] [address] 07/04/2024 Raquel Perica Onychomycosis B35.1 ; Pain in right toe(s) M79.674 and Pain in left toe(s) M79.[address] [address] 10/22/2024 Raquel Perica Onychomycosis B35.1 ; Pain in right toe(s) M79.674 and Pain in left toe(s) M79.[address] [address] 09/08/2024 Raquel Perica Assessments Encounter Date Diagnosis [...] Provider Name:Raquel castillo, 01/16/2025 11:15:00 AM, [address] [facility], [place], [address], Insurance Providers Payer Name Payer Address Payer Phone Subscriber Number Group Number Insured Name Patient Relationship to Insured Coverage Start Date Coverage End Date Medicare National Govt S[employer] [address] [place] [address] [id number] Robert Mcintyre Self - patient is the insured [employer] Preferred [address] [place] [address] [phone] [id number] Robert Mcintyre Self - patient is the insured Medical (General) History Medical History History ICD Code Arthritis Back,Hip,and Knee pain Cancer Cataracts High blood pressure Macular degeneration Numbness Surgical History Surgery Date(Month/Year) melanoma 2017, 2018 lymphoma 2020 cataract surgery
--- OUTSIDE RECORDS SUMMARY | 2025-01-01 15:26 | XMS_ITS | Patient Health Record ---
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 (Z79.82) Active confirmed Problem [id number] Polyp of colon, unspecified part of colon, unspecified type (K63.5) Active confirmed Plan Of Treatment Future Test Test Name Order Date COLONOSCOPY 06/21/2020 COLONOSCOPY 08/23/2023 Insurance Providers Payer Name Payer Address Payer Phone Subscriber Number Group Number Insured Name Patient Relationship to Insured Coverage Start Date Coverage End Date MEDICARE OF [place] [address] [place] [address] [id number] ADRIANA JOSÉ Self - patient is the insured [employer] PREF[employer]ED [address] [place] [address] [id number] ADRIANA JOSÉ Self - patient is the [...]
--- OUTSIDE RECORDS SUMMARY | 2025-01-01 15:26 | XMS_ITS | Clinical Summary ---
Author Organization [facility] Address [address] [place] [address] Care Team Providers Care Prop Setter Name Role Phone Zachery Rios MD Primary Care Provider Surgical History Surgery Date Site/Laterality Comments OTHER SURGICAL HISTORY PROCEDURE: CA EXCISION MALIGNANT LESION F/E/E/N/L 0.5 CM/< OTHER SURGICAL HISTORY 03/15/2017 Left PROCEDURE: [place] ICAPSULAR CATARACT XTRJ INSJ IO LENS PRSTH [...] Patients (1 - 1-dose 75+ series) 2021 Depression Screening 04/02/2024 Cholesterol Screening (Lipid Panel) 07/18/2024 Falls Risk Assessment 07/18/2024 Hepatitis C Screening 07/18/2024 Hypertension/CHF/CAD Annual BMP Blood Test 07/18/2024 Lung Cancer Screening (Low Dose CT) 07/18/2024 Social Influencers of Health Screening 07/18/2024 COVID-19 Vaccine ( season) 2024 12/30/2021, 07/20/2021, 12/01/2020, Additional history exists Influenza Vaccine (#1) 2024 , 12/31/2022, 12/31/2021, [...] age to complete this topic Care Teams Prop Setter Relationship Specialty Start Date End Date Zachery Rios MD [address] [place] [address] [address] IMER Carrera PCP - General Internal Medicine 02/05/18
== END 2025-01-01 14:32 | disposition home or self-care (01) ==
LOC: HO.HPS 13:47
PROVIDERS: PCP Internal Medicine; Referring Provider Internal Medicine Medical Oncology; Visit Provider Internal Medicine
DX: R06.09 Other forms of dyspnea (principal); F17.200 Nicotine dependence, unspecified, uncomplicated; C83.398 Diffuse large B-cell lymphoma of other extranodal and solid organ sites
CPT/HCPCS: 99203

== ENCOUNTER → 2025-01-01 13:46 | Outpatient (BNVA) | payer MEDICARE, SELFPAY | PROVIDERS: PCP Internal Medicine; Referring Provider Internal Medicine Medical Oncology; Visit Provider Internal Medicine | DX: R06.09 Other forms of dyspnea (principal); F17.200 Nicotine dependence, unspecified, uncomplicated; C83.3A Diffuse large B-cell lymphoma, in remission; Z92.21 Personal history of antineoplastic chemotherapy | CPT/HCPCS: 99202 ==

== ENCOUNTER 2025-03-12 12:36 | Outpatient (REF) | payer MEDICARE, SELFPAY ==
--- NOTE | 2025-03-12 12:57 | PFT_ITS ---
Spirometry [] Lung Volumes [] Diffusion Capacity [] Methacholine Challenge [] Flow Volume Loops [] MVV [] MIP/MEP(Max inspiratory pressure/Max expiratory pressure) [] 6 Minute Walk Test [] ABG [] Interpretation [] MTDD
[2025-03-12 13:43] VITALS: PULSE 78
== END 2025-03-12 12:37 | disposition home or self-care (01) ==
LOC: HO.RESP 12:36
PROVIDERS: Visit Provider Internal Medicine
DX: J44.9 Chronic obstructive pulmonary disease, unspecified (principal); R06.09 Other forms of dyspnea; F17.210 Nicotine dependence, cigarettes, uncomplicated
CPT/HCPCS: 94060; 94640; 94727; 94729; 99212

== ENCOUNTER 2025-03-12 14:00 | Outpatient (AMB) | payer MEDICARE, SELFPAY ==
--- OUTSIDE RECORDS SUMMARY | 2023-12-07 04:10 | XMS_ITS ---
Author Organization [facility] Address [address] [place] [phone] Care Team Providers Care Fuel Truck Driver Name Role Phone Gabriel MONTGOMERY, Zachery Primary Care Provider Rian Larsen Jr Unavailable Kathy Silverio M.D Unavailable Unavailable REASON FOR VISIT hx polyps Encounters Encounter Location Date Provider Diagnosis [facility] Outpatient [address] [place] [phone] 12/07/2023 Rian Metzger Jr Colon cancer screening Z12.11 Assessments Encounter Date Diagnosis (ICD Code) Assessment Notes Treatment Notes Treatment Clinical Notes Section Notes 12/07/2023 Colon cancer screening (ICD-10 - Z12.11) Plan Of Treatment No Information Progress Notes * ADRIANA JOSÉ JDOB:1945 (79 yo M)Acc No.[id number]:12/07/2023 COLON WITH MAC Patient: Cruz CLARKADRIANA MONREAL Robin Provider: Kelly Metzger MD :1945 A ge:78 Y S ex:Male Date:12/07/2023 Address:[address] [place], [place] [phone] Pcp:Zachery Rios MD Subjective: * Chief Complaints: * H x polyps Assessment: * Assessment: 1. C olon cancer screening - Z12.11 (Primary) Plan: * Procedure Codes: 4 5378 DIAGNOSTIC [id number] INTRVL 3+YRS PTS CLNSCP DOCD Billing Information: * Procedure Codes: 19733 DIAGNOSTIC COLONOSCOPY. 0529F INTRVL 3+YRS PTS CLNSCP DOCD. * The named appointment provid er may or may not be the originator of this progress note, and it is not deemed complete until electronically signed by the appointment provider. Sign off status: Pending * Provider: Kelly Metzger MD Date: 0 12/07/2023 Generated for Salvador guajardo/Flori/Jamesitting on: 1 05/13/2024 09:27 PM EST
--- OUTSIDE RECORDS SUMMARY | 2024-04-18 07:15 | XMS_ITS ---
Author Organization [facility] Address [address] [place] [address] Care Team Providers Care Phone Counselor Name Role Phone Dane Rios MDneth Primary Care Provider Raquel Ruelas Unavailable [phone] De La Vega Medications Medication SIG (Take, Route, Frequency, Duration) Notes Start Date End Date Status Ciclopirox Olamine 0.77 % 1 application Externally Twice a day; Duration: 30 days Active Apixaban 5 MG as directed Orally Not-Taking PreserVision AREDS 2 Active Multivitamin Active Atorvastatin Calcium 40 MG 1 tablet Orally Once a day; Duration: 30 day(s) Active Lisinopril 5 MG 1 tablet Orally Once a day; Duration: 30 day(s) Active buPROPion HCl ER (Smoking Det) 150 MG 1 tablet in the morning Orally Once a day; Duration: 30 day(s) Active Encounters Encounter Location Date Provider Diagnosis [address] [address] 04/18/2024 Raquel Smith Plan Of Treatment Next Appt Details Provider Name:Raquel castillo, 04/10/2025 01:00:00 PM, [address] [place] [address], [phone], Progress Notes * Robert MCINTYREDOB:1945 (79 yo M)Acc No.[id number]:04/18/2024 Progress Note Patient: Cruz Robert ORTEGA Provider: Caty Smith DPM :1945 A ge:78 Y S ex:Male Date:04/18/2024 Address:[address] [place] [address] [id number] Pcp:Zachery Rios MD Subjective: * Chief Complaints: * [address] De La Vega. * HPI: P ainful Nails: Pt States Last PCP Visit: D ate: 0 11/01/2023 * Medical History: * Medications: T aking PreserVision AREDS 2 , Taking Multivitamin , Taking Atorvastatin Calcium 40 MG Tablet 1 tablet Orally Once a day , Taking buPROPion HCl ER (Smoking Det) 150 MG Tablet Extended Release 12 Hour 1 tablet in the morning Orally Once a day , Taking Lisinopril 5 MG Tablet 1 tablet Orally Once a day , Taking Ciclopirox Olamine 0.77 % Cream 1 application Externally Twice a day , Not-Taking/PRN Apixaban 5 MG Tablet as directed Orally Objective: * Vitals: Assessment: Plan: * Treatment: * Images: * The named appointment provid er may or may not be the originator of this progress note, and it is not deemed complete until electronically signed by the appointment provider. Sign off status: Pending * Provider: Caty Smith DPM Date: 0 04/18/2024 Generated for Salvador guajardo/Flori/Yecenia on: 05/13/2024 09:27 PM EST History and Physical Notes * HPI (History of Present Illness) Category Sub-Category Detail Notes Category Not es Painful Nails Pt States Last PCP Visit: Date:: 11/01/2023
--- OUTSIDE RECORDS SUMMARY | 2024-06-04 05:20 | XMS_ITS ---
Author Organization [facility] Address [address] [place] [phone] Care Team Providers Care Fraud Analyst Name Role Phone Gabriel MONTGOMERY, Zachery Primary Care Provider Tootie Metzger Jr, Rian Unavailable Kathy Silverio M.D Unavailable Unavailable REASON FOR VISIT colon polyp Encounters Encounter Location Date Provider Diagnosis [facility] [address] [place] [phone] 06/04/2024 Rian Metzger Jr Plan Of Treatment No Information Progress Notes * ADRIANA JOSÉ JDOB:1945 (79 yo M)Acc No.[id number]:06/04/2024 Progress Notes Patient: ADRIANA CHAVEZ Provider: Kelly Metzger MD :1945 A ge:78 Y S ex:Male Date:06/04/2024 Address:[address] [place], [place] [phone] Pcp:Zachery Rios MD Subjective: * Chief Complaints: * C olon polyp * The named appointment provid er may or may not be the originator of this progress note, and it is not deemed complete until electronically signed by the appointment provider. Sign off status: Pending * Provider: Kelly Metzger MD Date: 0 06/04/2024 Generated for Printi ng/Faxing/eTransmitting on: 1 05/13/2024 09:27 PM EST
--- OUTSIDE RECORDS SUMMARY | 2024-09-19 08:45 | XMS_ITS ---
Author Organization [facility] Address [address] [place] [address] Care Team Providers Care Employee Relations Manager Name Role Phone Gabriel MONTGOMERY, Zachery Primary Care Provider Unava ilRaquel Callahan [phone] Encounters Encounter Location Date Provider Diagnosis [facility] [address] [place] [address] 09/19/2024 Raquel Smith Plan Of Treatment Next Appt Details Provider Name:Raquel castillo, 04/10/2025 01:00:00 PM, [address] [place] [address], [phone], Progress Notes * Robert MCINTYREDOB:1945 (79 yo M)Acc No.[id number]:09/19/2024 Progress Note Patient: Cruz BRITORobert FLEMING Provider: Caty Smith DPM :1945 A ge:79 Y S ex:Male Date:09/19/2024 Address:[address] [place] [address] Pcp:Zachery Rios MD Subjective: * Chief Complaints: * * Medical History: Objective: * Vitals: Assessment: Plan: * Treatment: * Images: * The named appointment provid er may or may not be the originator of this progress note, and it is not deemed complete until electronically signed by the appointment provider. Sign off status: Pending * Provider: Caty Smith, YVAN Date: 0 09/19/2024 Generated for Salvador guajardo/Flori/Yecenia on: 1 05/13/2024 09:27 PM EST
--- OUTSIDE RECORDS SUMMARY | 2025-01-16 06:15 | XMS_ITS ---
Author Organization [facility] Address [address] [place] [address] Care Team Providers Care Profile Mill Operator Tape Control Name Role Phone Zachery Rios MD Primary Care Provider Unava ilRaquel Callahan Unavailable [phone] REASON FOR VISIT Seen Sooner Encounters Encounter Location Date Provider Diagnosis [address] [address] 01/16/2025 Raquel Smith Plan Of Treatment Next Appt Details Provider Name:Raquel castillo, 04/10/2025 01:00:00 PM, [address] [place] [address], [phone], Progress Notes * Robert MCINTYREDOB:1945 (79 yo M)Acc No.[id number]:01/16/2025 Progress Note Patient: Cruz ORTEGA Robert Kelly Provider: Caty Smith DPM :1945 A ge:79 Y S ex:Male Date:01/16/2025 Address:[address] [place] [address] Pcp:Zachery Rios MD Subjective: * Chief Complaints: * 1 . Seen Sooner. * Medical History: Objective: * Vitals: Assessment: Plan: * Treatment: * Images: * The named appointment provid er may or may not be the originator of this progress note, and it is not deemed complete until electronically signed by the appointment provider. Sign off status: Pending * Provider: Caty Smith DPM Date: 1 Generated for Salvador Solomon on: 05/13/2024 09:26 PM EST
--- NOTE | 2025-03-12 14:03 | MHC.OFFVIS ---
Vital Signs 03/12/25 14:04 Height 5 ft 10 in Weight 207 lb 3.752 oz BMI 29.7 BP 110/64 Blood Pressure Location Lt brachial Position Sitting Pulse 68 Pulse Source Pulse Oximeter Pulse Oximetry (%) 98 Oxygen Delivery Method Room Air Intake Visit Reasons: Dyspnea/Same Day PFT Intake Note: pt is here for follow up of pft and states breathing is about the same Mfts Required: No Cloth Mercerizer Back Tender: Cloth Mercerizer Back Tender offered & declined Allergies naproxen (From Naprosyn) Allergy (Verified 03/12/25 14:29) Unknown Medication List - Last Reconciled 03/12/25 by Divine Mace MD albuterol sulfate 90 mcg/actuation (Ventolin HFA) 2 puffs inhalation Q4-6H PRN 60 days aspirin 81 mg PO DAILY atorvastatin 40 mg PO DAILY bupropion HCl (smoking deter) 150 mg PO DAILY lisinopril 5 mg PO DAILY polyethylene glycol 3350 (Gavilax) 17 grams PO DAILY PRN Do you need a note to return to daycare/school/sports/work: No HPI HPI Dyspnea/Same Day PFT: Details: This 79 years old very pleasant gentleman is here for follow-up. He has been a heavy smoker up to 2 packs a day and now has cut down the cigarettes to 4 per day. Denies any excessive amount of cough. Also denies any attacks of wheezing. He does get short winded if he walks up hill or climbs stairs. At level ground he is okay and he can do his day-to-day activities without any significant shortness of breath. He is being followed closely for follicular lymphoma, and is under care of Dr. Breanna Prakash . He does have 2 small pulmonary nodules which are being watched closely. He is getting CT scan of the chest and abdomen every 6 months , for follicular lymphoma. Today he came for pulmonary function test before seeing me. 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 Lumbar strain Lumbar degenerative disc disease Impaired fasting glucose Benign essential hypertension Pure hypercholesterolemia Surgical History Hx of tooth extraction Status post small bowel resection (~09/14/20) H/O colonoscopy History of melanoma excision History of eye surgery Family History Father Cancer Mother Cancer Brother Colon cancer Social History Household Members: None Housing: House Are you a primary career discovery teacher to a significant other at home: No Do you presently have visiting nurse or other home services: No Alcohol intake: former Comment: aware of trip hazard Patient Tobacco Use Status: Current everyday Tobacco user Tobacco use type: Cigarette Cigarettes Per Day: 4 Years Smoked: 60 e-Cigarette/Vaping Use: Never Used Second Hand Smoke Exposure: Yes Advance Directives Date on File: 08/17/20 service: Yes Current occupational status: retired Cognitive needs: No Hearing needs: No Vision needs: No Review of Systems Const All systems reviewed & are unremarkable except as noted in HPI and below Eyes Reports no additional complaints ENT Reports nasal obstruction (Left nostril, has had melanoma excised from the nose.) Card Denies chest pain, Denies chest pain at rest, Denies irregular heart rhythm, Denies leg edema and Reports dyspnea on exertion Resp Reports as per HPI and Reports dyspnea on exertion GI Reports constipation Reports no additional complaints Musc Reports no additional complaints Skin/Breast Reports system reviewed and no additional complaints, except as documented Neuro Reports no additional complaints Psych Reports no additional complaints Endo Reports no additional complaints Tripp/Lymph Reports no additional complaints Aller/Immun Reports no additional complaints Physical Exam Vital Signs: Last Vital Signs Pulse 68 03/12/25 14:04 BP 110/64 03/12/25 14:04 Pulse Ox 98 03/12/25 14:04 Oxygen Delivery Method Room Air 03/12/25 14:04 BMI result Body Mass Index 29.7 Const General: comfortable, no acute distress, alert and awake Orientation/consciousness: patient oriented x3 HEENT Head: Yes normal to inspection General nose exam: No nasal polyps present and No nasal discharge present Face and sinus: Yes sinuses nontender Mouth: oropharynx normal Throat: Yes posterior oropharynx normal Eyes General: appearance normal, both eyes and all related structures Neck Neck: Yes normal visual inspection, Yes no lymphadenopathy, Yes trachea midline and Yes no JVD Thyroid: Thyroid normal Chest Chest palpation & inspection: normal inspection of the chest, normal palpation of entire chest wall and no tenderness Resp Other: Percussion note is resonant. Breath sounds are slightly distant. No wheezes are heard, he has a few inspiratory crackles over the left base, indicating that he may have mild localized atelectasis. Cardio Palpation: normal PMI Rate: regular rate Rhythm: regular rhythm Heart sounds: no gallops and no murmurs Peripheral pulses: Peripheral pulses 2+ throughout GI Palpation (GI): Soft to palpation, nontender, No hepatosplenomegaly present and no masses Auscultation: normal bowel sounds Back/Spine/Pelvis Thoracic/Lumbar Spine: thoracic and lumbar spine normal to inspection Skin General skin exam: no rashes or lesions noted Neuro General: patient oriented x3 and no focal motor deficits Cranial nerves: Yes CN's II-XII intact bilaterally Extrem General: Yes normal to inspection, Yes no clubbing, cyanosis or edema and Yes no calf tenderness Psych Appearance: grossly normal and well kempt Speech and movement: Normal speech and movement present Results Reviewed Results Reviewed: Pulmonary function test shows FVC 84% FEV1 76% FEV1/FVC 67 CSD21-00 48%. There was no significant response to bronchodilator therapy. Total lung capacity and diffusion capacity are both normal Assessment & Plan Assessment & Plan (1) Smoker: Comment: LONGSTANDING HISTORY OF SMOKING 2 PACKS A DAY FOR MORE THAN 40 YEARS, NOW FOR THE PAST 5-6 YEARS HAS CUT DOWN TO 5 CIGARETTES A DAY. THIS IS WITH THE HELP OF BUPROPION HCL 150 MG DAILY . Code(s): F17.200 - Nicotine dependence, unspecified, uncomplicated Category: Social Hx Plan: I talked to him and the finding of mild obstructive airway disorder, . Also he has 2 small pulmonary nodules In light of these findings I told him that it is important for him to stop smoking. He is down to 4 cigarettes a day that is. A big achievement and hopefully one day he will quit completely. (2) Exertional dyspnea: Comment: HE HAS EXERTIONAL DYSPNEA FOR ABOUT 1 YEAR, NO COUGH OR WHEEZING. IT IS PROBABLY MULTIFACTORIAL, ( POSSIBLE COPD, GENERAL DECONDITIONING, OBESITY ) It is mild and he can cope with it and continues to do his normal activities. Code(s): R06.09 - Other forms of dyspnea Category: Medical Plan: Had a good talk and he seems to think that he does not need any special treatment for that. (3) COPD (chronic obstructive pulmonary disease): Comment: The pulmonary function test shows but only mild obstructive airway disorder. (COPD ) SEE THE RESULTS OF PULMONARY FUNCTION TEST. Code(s): J44.9 - Chronic obstructive pulmonary disease, unspecified Category: Medical Plan: DISCUSSED ABOUT THE TREATMENT PLAN. AT THIS POINT HE SEEMS TO BE SATISFIED WITH USING ALBUTEROL ONLY P.R.N. HE IS NOT KEEN TO START ON ANY MAINTENANCE REGIMEN. I HAVE PRINTED SCRIPT FOR ALBUTEROL HFA TO USE 2 PUFFS Q.4-6 HOURS P.R.N. IN CASE OF RESPIRATORY DISTRESS . HE PLANS TO TAKE THIS SCRIPT TO [facility]. AND GET IT FROM THERE Medications: New albuterol sulfate 90 mcg/actuation (Ventolin HFA) 2 puffs inhalation Q4-6H PRN 8.5 grams 3RF copd 60 days Coding Level of Care Code Est Pt Level 3 (65318) Diagnoses Smoker F17.200 Exertional dyspnea R06.09 COPD (chronic obstructive pulmonary disease) J44.9
[2025-03-12 14:04] VITALS: BP 110/64; PULSE 68; O2SAT 98; BMI 29.7
--- OUTSIDE RECORDS SUMMARY | 2025-03-12 21:27 | XMS_ITS | Clinical Summary ---
Author Organization [facility] Address [address] [place] [address] Care Team Providers Care Walnut Dehydrator Operator Name Role Phone Zachery Rios MD Primary Care Provider Surgical History Surgery Date Site/Laterality Comments OTHER SURGICAL HISTORY PROCEDURE: [place] EXCISION MALIGNANT LESION F/E/E/N/L 0.5 CM/< OTHER SURGICAL HISTORY 03/15/2017 Left PROCEDURE: [place] ICAPSULAR CATARACT XTRJ INSJ IO LENS PRSTH [...] on file Sexual Orientation Not on file Plan of Treatment Health Maintenance Due Date [...] Additional history exists Influenza Vaccine (#1) 2024 4, 12/31/2022, 12/31/2021, Additional history exists DTaP,Tdap,and Td [...] age to complete this topic Care Teams Walnut Dehydrator Operator Relationship Specialty Start Date End Date Zachery Rios MD [address] [place] [address] [address] IMER Carrera PCP - General Internal Medicine 02/05/18
--- OUTSIDE RECORDS SUMMARY | 2025-03-12 21:28 | XMS_ITS | Patient Health Record ---
Author Organization [facility] Address [address] [place] [address] Care Team Providers Care Ballet Master/Mistress Name Role Phone Gabriel MONTGOMERY, Zachery Primary Care Provider Rian Larsen Jr Unavailable [phone] Kathy Silverio M.D Unavailable Unavailable Allergies Allergen (clinical drug ingredient) Drug/Non Drug Allergy documented on EMR Reaction Allergy Type Onset Date Status naproxen Naprosyn Unknown Drug Allergy Active Reason For Referral No Information Medications Medication SIG (Take, Route, Frequency, Duration) Notes Start Date End Date Status Aspirin 81 Active Rosuvastatin Calcium 40 MG Tablet 1 tablet Orally Once a day; Duration: 30 day(s) Active Lisinopril 5 MG Tablet Orally Active buPROPion HCl 150 mg Active Multivitamin Active Immunizations Vaccine Route Administration Date Status Comme nts Influenza Unknown 01/14/2020 Administered Influenza Unknown 01/23/2023 Administered Social History Tobacco Use: Social History Observation Description Date Details (start date - stop date) Current Smoker NA - NA Social History Drugs/Alcohol: Social Info Question Answer Notes Alcohol Screen Did you have a drink containing alcohol in the past year? No Points 0 Interpretation Negative Tobacco Use: Social Info Question Answer Notes Tobacco Use/Smoking Patient is a current smoker How often do you smoke cigarettes? every day How many cigarettes a day do you smoke? 5 or less How soon after you wake up do you smoke your first cigarette? within 5 minutes Are you interested in quitting? Not ready to quit Additional Details Category Social Info Options Details Miscellaneous: Marital status: Occupation: retired Problems Problem Type SNOMED Code ICD Code Onset Dates Problem Status W/U Status Risk Notes Problem Colon cancer screening (934277193) Colon cancer screening (Z12.11) Active confirmed Problem Long-term current use of antiplatelet drug (842572322822292 ) intermediate manager (current) use of aspirin (Z79.82) Active confirmed Problem Benign neoplasm of colon (67811327) Polyp of colon, unspecified part of colon, unspecified type (K63.5) Active confirmed Plan Of Treatment Future Test Test Name Order Date COLONOSCOPY 06/21/2020 COLONOSCOPY 08/23/2023 Insurance Providers Payer Name Payer Address Payer Phone Subscriber Number Group Number Insured Name Patient Relationship to Insured Coverage Start Date Coverage End Date MEDICARE OF [place] [address] [place] [id number] ADRIANA JOSÉ Self - patient is the insured [employer] [address] [place] [address] [phone] [id number] ADRIANA JOSÉ Self - patient is the [...]
--- OUTSIDE RECORDS SUMMARY | 2025-03-12 21:28 | XMS_ITS | Patient Health Record ---
[facility] Address [address] [place] [address] Care Team Providers Care House Wirer Name Role Phone Dane Rios MDneth Primary Care Provider Raquel Ruelas Unavailable [phone] Allergies No Known Allergies Reason For Referral No Information Medications Medication SIG (Take, Route, Frequency, Duration) Notes Start Date End Date Status Lisinopril 5 MG 1 tablet Orally Once a day; Duration: 30 day(s) Active buPROPion HCl ER (Smoking Det) 150 MG 1 tablet in the morning Orally Once a day; Duration: 30 day(s) Active Atorvastatin Calcium 40 MG 1 tablet Orally Once a day; Duration: 30 day(s) Active Multivitamin Active PreserVision AREDS 2 Active Apixaban 5 MG as directed Orally Not-Taking Ciclopirox Olamine 0.77 % 1 application Externally Twice a day; Duration: 30 days Not-Taking Immunizations Vaccine Route Administration Date Status Comme [...] Status W/U Status Risk Notes Problem Neuropathy (742902549) Neuropathy (G62.9) Active confirmed Vital Signs Blood pressure diastolic 80 mm Hg 01/02/2025 Height 5 ft 9 in in 01/02/2025 Blood pressure systolic 120 mm Hg 01/02/2025 Weight 200 lbs 01/02/2025 BMI 29.53 kg/m2 01/02/2025 Encounters Encounter Location Date Provider Diagnosis [address] [address] 04/23/2024 Raquel Perica Onychomycosis B35.1 ; Pain in right toe(s) M79.674 and Pain in left toe(s) M79.[address] [address] 07/04/2024 Raquel Perica Onychomycosis B35.1 ; Pain in right toe(s) M79.674 and Pain in left toe(s) M79.[address] [address] 10/22/2024 Raquel Perica Onychomycosis B35.1 ; Pain in right toe(s) M79.674 and Pain in left toe(s) M79.[address] [address] 01/02/2025 Raquel Perica Onychomycosis B35.1 ; Tinea pedis of both feet B35.3 ; Pain in right toe(s) M79.674 and Pain in left toe(s) M79.[address] [address] 09/08/2024 Raquel Perica Assessments Encounter Date Diagnosis (ICD Code) Assessment Notes Treatment Notes Treatment Clinical Notes Section Notes 04/23/2024 Pain in right toe(s) (ICD-10 - M79.674) 04/23/2024 Onychomycosis (ICD-10 - B35.1) 07/04/2024 Pain in right toe(s) (ICD-10 - M79.674) 07/04/2024 Onychomycosis (ICD-10 - B35.1) 10/22/2024 Onychomycosis (ICD-10 - B35.1) 01/02/2025 Onychomycosis (ICD-10 - B35.1) 01/02/2025 Tinea pedis of both feet (ICD-10 - B35.3) 01/02/2025 Pain in right toe(s) (ICD-10 - M79.674) 10/22/2024 Pain in right toe(s) (ICD-10 - M79.674) 07/04/2024 Pain in left toe(s) (ICD-10 - M79.675) 04/23/2024 Pain in left toe(s) (ICD-10 - M79.675) 10/22/2024 Pain in left toe(s) (ICD-10 - M79.675) 01/02/2025 Pain in left toe(s) (ICD-10 - M79.675) Plan Of Treatment Next Appt Details Provider Name:Raquel Mike castillo, 04/10/2025 01:00:00 PM, [address] [place], [address], Insurance Providers Payer Name Payer Address Payer Phone Subscriber Number Group Number Insured Name Patient Relationship to Insured Coverage Start Date Coverage End Date Medicare [employer] [address] [place] [address] [id number] Robert Mcintyre Self - patient is the insured [employer] Preferred [address] [place] [address] [id number] Roebrt Mcintyre Self - patient is the insured Medical (General) History Medical History History ICD Code Arthritis Back,Hip,and Knee pain Cancer Cataracts High blood pressure Macular degeneration Numbness Surgical History Surgery Date(Month/Year) melanoma 2016, 2018 lymphoma 2020 cataract surgery
== END 2025-03-12 14:23 | disposition home or self-care (01) ==
LOC: HO.HPS 14:00
PROVIDERS: PCP Internal Medicine; Visit Provider Internal Medicine
DX: F17.200 Nicotine dependence, unspecified, uncomplicated (principal); R06.09 Other forms of dyspnea; J44.9 Chronic obstructive pulmonary disease, unspecified
CPT/HCPCS: 99213